=== PATIENT | female | born 1965 | race Caucasian/White ===

== ENCOUNTER 2017-06-25 16:16 | Emergency (ER) | payer OTHER ==
[~2017-06-25] VITALS: Ht 167.6 cm; Wt 79.4 kg
[2017-06-25] MEDS ORDERED: SILDENAFIL20 MG PO (16:38)
[2017-06-25] MEDS ORDERED: FUROSEMIDE40 MG PO (16:40)
[2017-06-25] MEDS ORDERED: GUAIFEN-CODEINE10 ML PO (19:07)
--- NOTE | 2017-06-26 15:08 | EKG ---
[facility] [address] [place], [place] [address] Signed Normal sinus rhythm with sinus arrhythmia Rightward axis ST \T\ T wave abnormality, consider anterolateral ischemia Prolonged QT Abnormal ECG No previous ECGs available Confirmed by BIJU FERRER MD ([id number]) on 06/26/2017 3:08:39 PM Electronically Signed By: BIJU FERRER MD 06/26/17 1508 PATIENT NAME: LUCILA POLLACKRA Electrocardiogram DATE OF : 63 PHYSICIAN: BIJU FERRER MD REPORT #: [id number] REPORT IS CONFIDENTIAL AND NOT TO BE RELEASED WITHOUT AUTHORIZATION
== END 2017-06-25 19:25 | disposition home or self-care (01) ==
LOC: ED 16:16
DX: R06.00 Dyspnea, unspecified (principal); E87.6 Hypokalemia; I27.20 Pulmonary hypertension, unspecified; M81.0 Age-related osteoporosis without current pathological fracture; Z88.5 Allergy status to narcotic agent
CPT/HCPCS: 71046; 80053; 81001; 82803; 83880; 84484; 85025; 87088; 93005; 93010; 96374; 99284

== ENCOUNTER 2019-10-23 19:36 | Emergency (ER) | payer OTHER ==
[~2019-10-23] VITALS: Ht 167.6 cm; Wt 95.2 kg
--- OUTSIDE RECORDS SUMMARY | ~2019-10-23 | XMS | Encounter Summary ---
Demographics + + + | Address | [address] | | | [place] [address] | + + + | Home Phone | | + + + | Preferred Language | Unknown | + + + | Marital Status | Single | + + + | Hindu Affiliation | CHR | + + + | Race | White | + + + | Ethnic Group | Not or | + + + Author + + + | Author | [facility] | + + + | Organization | [facility] | + + + | Address | Unknown | + + + | Phone | Unavailable | + + + Support + + +---------+ + | Name | Relationship | Address | Phone | + + +---------+ + | Bobbi Oconnell | ECON | Unknown | | + + +---------+ + | Alyssa Hernandez | ECON | Unknown | | + + +---------+ + Care Team Providers + +------+ + | Care Railroad Operator Name | Role | Phone | + +------+ + | Eve Daugherty MD | PCP | | + +------+ + Encounter Details +--------+ + + + + | Date | Type | Department | Care Team | Description | +--------+ + + + + | 04/05/ | Emergency | [facility] Emergency | | | | 2017 | | Department [address] | | | | | [address] | | | | | | [facility] | | | | | | [place], [place] | | | | | | [address] | | | | | | [phone] | | | +--------+ + + + + Social History + +-------+ +--------+------+ | Tobacco Use | Types | Packs/Day | Years | Date | | | | | Used | | + +-------+ +--------+------+ | Never Assessed | | | | | + +-------+ +--------+------+ + + + | Sex Assigned at | Date Recorded | | | | + + + | Not on file | | + + + documented as of this encounter Functional Status + + + + | Functional Status | Response | Date of Assessment | + + + + | Because of a physical, mental, or emotional | No | 03/17/2017 | | condition, do you have serious difficulty | | | | doing errands alone such as visiting the | | | | doctor? | | | + + + + + + + + | Cognitive Status | Response | Date of Assessment | + + + + | Because of a physical, mental, or emotional | No | 03/17/2017 | | condition, do you have serious difficulty | | | | concentrating, remembering, or making | | | | decisions? (5 years old or older) | | | + + + + documented as of this encounter Medications at Time of Discharge + + + +---------+ + + | Medication | Sig | Dispensed | Refills | Start | End Date | | | | | | Date | | + + + +---------+ + + | albuterol 90 | Inhale 2 puffs by | | 0 | | | | mcg/actuation | mouth every four | | | | | | inhalation HFA | hours as needed | | | | | | aerosol inhaler | (dyspnea). | | | | | + + + +---------+ + + | | Take 10 mL by mouth | 118 mL | 0 | // | | | dextromethorphan-gua | every four hours as | | | 18 | | | iFENesin 10-100 mg/5 | needed (cough 2nd | | | | | | mL oral | line). Indications: | | | | | | syrupIndications: | Cough | | | | | | cough | | | | | | + + + +---------+ + + | fluticasone 50 | Instill 2 sprays | 16 g | 0 | 03/27/19 | | | mcg/actuation nasal | into each nostril | | | 18 | | | spray,suspensionIndi | two times daily. | | | | | | cations: sinusitis | Indications: | | | | | | | sinusitis | | | | | + + + +---------+ + + documented as of this encounter Miscellaneous Notes Comm [place] - Gauri Mg - 04/05/2017 7:12 PM PSTPaged ailyn Shaffer, for Dr Rosa. [address] Olivia with dr Rosa, 52YOM, recent admission to [facility]tn, rt heart f ailiure, presented todat with chest pain, described as ache, ekg shows no acute process, tri p 0.04, repeat 0.05, ddimer normal 0.42, peripheral edema has resolved, chest wall tendern ess, has been off and on x 3 days, consult only, no transfer. documented in this encounter Plan of Treatment Not on filedocumented as of this encounter Visit Diagnoses Not on filedocumented in this encounter"
--- OUTSIDE RECORDS SUMMARY | ~2019-10-23 | XMS | Encounter Summary ---
Demographics + + + | Address | [address] | | | [place] [address] | + + + | Home Phone | | + + + | Preferred Language | Unknown | + + + | Marital Status | Single | + + + | Baptist Affiliation | CHR | + + + | Race | White | + + + | Ethnic Group | Not or | + + + Author + + + | Author | [facility] | + + + | Organization | [facility] | + + + | Address [...] Team Providers + +------+ + | Care Disc Jockey Name | Role | Phone | + +------+ + | Bobbi Jenkins NP | PCP | | + +------+ + Encounter Details +--------+ + + + + | Date | Type | Department | Care Team | Description | +--------+ + + + + | 09/14/ | Telephone | Pulmonary & | Beth Keith, | | | 2020 | | Critical Care | [address] | | | | | Medicine at | [facility] | | | | | Physicians [place] | [place], [place] | | | | | [address] | [address] | | | | | [address] | [phone] | | | | | [address] | | | | | | [place], [place] | | | | | | [address] | | | | | | [phone] | | | +--------+ + + + + Social History + +-------+ +--------+------+ | Tobacco Use | Types | Packs/Day | Years | Date | | | | | Used | | + +-------+ +--------+------+ | Never Smoker | | | | | + +-------+ +--------+------+ + +---+---+---+ | Smokeless Tobacco: | | | | | Never Used | | | | + +---+---+---+ + + +---------+ + | Alcohol Use | Drinks/Week | oz/Week | Comments | + + +---------+ + | Yes | | | Once every 6 months | + + +---------+ + + + + | Sex Assigned at | Date Recorded | | | | + + + | Not on file | | + + + documented as of this encounter Functional Status + + + + | Functional Status | Response | Date of Assessment | + + + + | Because of a physical, mental, or emotional | No | 11/15/2018 | | condition, do you have serious difficulty | | | | doing errands alone such as visiting the | | | | doctor? | | | + + + + + + + + | Cognitive Status | Response | Date of Assessment | + + + + | Because of a physical, mental, or emotional | No | 11/15/2018 | | condition, do you have serious difficulty | | | | concentrating, remembering, or making | | | | decisions? (5 years old or older) | | | + + + + documented as of this encounter Miscellaneous Notes Telephone Encounter - Gianna Worthy MA - 09/15/2019 3:45 PM PDTFaxed Pre-op note from Dr. Keith, per her request. documented in this encounter Plan of Treatment Not on filedocumented as of this encounter Visit Diagnoses Not on filedocumented in this encounter"
--- OUTSIDE RECORDS SUMMARY | ~2019-10-23 | XMS | Encounter Summary ---
Demographics + + + | Address | [address] | | | [place] [address] | + + + | Home Phone | | + + + | Preferred Language | Unknown | + + + | Marital Status | Single | + + + | Amish Affiliation | CHR | + + + | Race | White | + + + | Ethnic Group | Not or | + + + Author + + + | Author | [facility] | + + + | Organization | [facility] | + + + | Address [...] Team Providers + +------+ + | Care Ms Sql Server Developer Name | Role | Phone | + +------+ + | Bobbi Jenkins NP | PCP | | + +------+ + Reason for Visit + +--------+ + | Reason | Onset | Comments | | | Date | | + +--------+ + | SOB - Shortness of | 06/19/ | | | breath | 2020 | | + +--------+ + Encounter Details +--------+ + + + + | Date | Type | Department | Care Team | Description | +--------+ + + + + | 06/19/ | Telephone | Pulmonary & | Beth Keith, | SOB - Shortness of | | 2019 | | Critical Care | [address] | breath | | | | Medicine at | [facility] | | | | | Physicians [place] | [place], [place] | | | | | [address] | [address] | | | | | [address] [facility] | [phone] | | | | | Donna, [address] [place] [address] | | | | | | [place], [place] | | | | | | [address] | | | | | | [phone] | | | +--------+ + + + [...] this encounter Miscellaneous Notes Telephone Encounter - Yareli Bonilla MA - 06/20/2019 3:54 PM PDTReceived the reports, th ey are now uploaded in [employer]. elephone Encounter - Yareli Bonilla MA - 06/20/2019 2:[address] to have them push images and fax reports. elephone Encounter - Holly Early - 06/20/2019 2:26 PM PDTInbound call from Gema Barron. Calling to follow up on Lulu's call-back from this morning. Gema wanted to reiterate that she was recommended to be on bed rest by her ED doctor canelo liu she follows up with Dr. Keith. The patient reports a maintained level of shortness of nolan th. elephone Encounter - Saniya Cam - 06/20/2019 8:12 AM PDTVerenice called and left a message yesterday afternoon t hat she had worsening SOB and wanted to get results of the echo done on 06/14/19. Upon contac ting her this morning found that he did go to ER. They gave her the echo results and sent h er home with strict bed rest. This office just contacted the echo lab at [facility] and a sked that they fax the results of Gema's echo. They were not sure why it had not been sen t. documented in this enc ounter Plan of Treatment Not on filedocumented as of this encounter Visit Diagnoses Not on filedocumented in this encounter"
--- OUTSIDE RECORDS SUMMARY | ~2019-10-23 | XMS | Encounter Summary ---
Demographics + + + | Address | [address] | | | [place] [address] | + + + | Home Phone | | + + + | Preferred Language | Unknown | + + + | Marital Status | Single | + + + | Cheondoism Affiliation | CHR | + + + | Race | White | + + + | Ethnic Group | Not or | + + + Author + + + | Author | [facility] | + + + | Organization | [facility] | + + + | Address | [...] Team Providers + +------+ + | Care Equipment Operator/Laborer Name | Role | Phone | + +------+ + | Eve Daugherty MD | PCP | | + +------+ + Reason for Visit + + + | Reason | Comments | + + + | Refill Request | | + + + Encounter Details +--------+--------+ + + + | Date | Type | Department | Care Team | Description | +--------+--------+ + + + | 10/18/ | Refill | Pulmonary & | Mya Hall MD | Refill Request | | 2019 | | Critical Care | [address] | | | | | Medicine at | [facility], | | | | | [address] | [place] [address] | | | | | [address] | [phone] | | | | | Loop [facility] | | | | | | Donna, [facility] Floor | | | | | | [place], [place] | | | | | | [address] | | | | | | [phone] | | | +--------+--------+ + + + Social History + +-------+ [...] this encounter Miscellaneous Notes Telephone Encounter - Sydni Saldana MA - 10/18/2018 8:17 AM PDTFormatting of this note horacio ht be different from the original. REFILL REQUEST DATE: October 18, 2018 PATIENT: Gema Barron [id number] MESSAGE: On current med list Requested Prescriptions Pending Prescriptions Disp Refills KLOR-CON M20 20 mEq oral tablet,ER particles/crystals [Pharmacy Med Name: KLOR-CON M20 TABLET] 120 tablet 0 Sig: take 2 tablets by mouth twice a day with TORSEMIDE LAST APPOINTMENT: 10/12/17 at 3:37 pm NEXT APPOINTMENT: 11/17/18 at 2:15 pm Patient's pharmacy has been verified: Yes [id number] [place] [id number] documented in this encou nter Plan of Treatment Not on filedocumented as of this encounter Visit Diagnoses Not on filedocumented in this encounter"
--- OUTSIDE RECORDS SUMMARY | ~2019-10-23 | XMS | Encounter Summary ---
Demographics + + + | Address | [address] | | | [place] [address] | + + + | Home Phone | | + + + | Preferred Language | Unknown | + + + | Marital Status | Single | + + + | Druze Affiliation | CHR | + + + | Race | White | + + + | Ethnic Group | Not or | + + + Author + + + | Author | [facility] | + + + | Organization | [facility] | + + + | [...] Team Providers + +------+ + | Care All Terrain Vehicle Racer Name | Role | Phone | + +------+ + | Bobbi Jenkins NP | PCP | | + +------+ + Encounter Details +--------+ + + + + | Date | Type | Department | Care Team | Description | +--------+ + + + + | 09/21/ | MyChart | Pulmonary & | Beth Keith, | RE: Test results | | 2020 | Encounter | Critical Care | [address] | | | | | Medicine at | [facility] [address] | | | | | Phys[facility] | [place], [place] | | | | | [address] | [address] | | | | | Loop [facility] | [phone] | | | | | Donna, [address] [place] [address] | | | | | | [place], [place] | | | | | | [address] | | | | | | [phone] | | | +--------+ + + + [...] Telephone Encounter - Gianna Worthy MA - 09/22/2019 4:07 PM PDTPlease see patient requ est. documented in thi s encounter Plan of Treatment Not on filedocumented as of this encounter Visit Diagnoses Not on filedocumented in this encounter"
--- OUTSIDE RECORDS SUMMARY | ~2019-10-23 | XMS | Encounter Summary ---
Demographics + + + | Address | [address] | | | [place] [address] | + + + | Home Phone | | + + + | Preferred Language | Unknown | + + + | Marital Status | Single | + + + | Voodoo Affiliation | CHR | + + + | Race | White | + + + | Ethnic Group | Not or | + + + Author + + + | Author | [facility] | + + + | Organization | [facility] | + + + | [...] Team Providers + +------+ + | Care Junior Php Developer Name | Role | Phone | + +------+ + | Eve Daugherty MD | PCP | | + +------+ + Reason for Visit + +--------+ + | Reason | Onset | Comments | | | Date | | + +--------+ + | Medication Refill | 05/09/ | | | | 2019 | | + +--------+ + Encounter Details +--------+ + + + + | Date | Type | Department | Care Team | Description | +--------+ + + + + | 05/09/ | Telephone | Pulmonary & | Mya Hall MD | Medication Refill | | 2019 | | Critical Care | [address] | | | | | Medicine at | [facility], | | | | | Physicians [place] | [place] [address] | | | | | [address] | [phone] | | | | | Loop [facility] | | | | | | Donna, [address] [place] [address] | | | | | | [place], [place] | | | | | | [address] | | | | | | [phone] | | | +--------+ + + + [...] Telephone Encounter - Sydni Saldana MA - 05/13/2018 9:20 AM PDTSildenafil PA approval scan liz to the media section of chart by [facility]. I called and left a msg with the pharmacy letting them know that PA was approved and to rerun the Rx as pt needs refill. I asked that the pharmacy call us back if they have any issues running the Rx. I called the pt without s uccess. I received automated msg and not able to leave msg. elephone Encounter - Mindi Irwin MA - 05/12/2018 12:59 PM PDTAttempted to call the patient back to give her an update on PA request for janna araceliraymond. Received a automated message that stated "the number I was trying to call had calling restrictions that prevented the completion of the call." I called and spoke with patient's insurance and they said that the request for PA is still pending approval. I requested that they send a message through to request that the process the PA urgently as patient is now ou t of medication. A message with this request was sent to their processing department. If tabatha barrosdaniela calls back please let her know that CLAIR tried calling to provide her with this informati on but received the above message and was unable to get through. We will update her once we receive an approval. Telephone Encounter - Alma Delia Mann - 05/12/2018 12:09 PM PDTPatient called to follow-up on status of medication PA. Would also like a call from a medical scheduler. elephone Encounter - Mindi Irwin MA - 05/10/2018 10:10 AM PDTRequest sent to [facility] requesting urgent PA be submitted for aleksandra ent's sildenafil. el ephone Encounter - Alma Delia Mann - 05/09/2018 4:25 PM PDTPatient called needing a refil l on her sildenofil. She has 1 day left of meds until she runs out. [facility] pharmacy faxed o ivelisse a prior auth request on 05/07/18 and need this completed before they can fill rx. Routing to CLAIR clark for assistance. documented in this encounter Plan of Treatment Not on filedocumented as of this encounter Visit Diagnoses Not on filedocumented in this encounter
--- OUTSIDE RECORDS SUMMARY | ~2019-10-23 | XMS | Encounter Summary ---
Demographics + + + | Address | [address] | | | [place] [address] | + + + | Home Phone | | + + + | Preferred Language | Unknown | + + + | Marital Status | Single | + + + | Tenriism Affiliation | CHR | + + + | Race | White | + + + | Ethnic Group | Not or | + + + Author + + + | Author | [facility] | + + + | Organization | [facility] | + + + | Address [...] Team Providers + +------+ + | Care Fundraising Coordinator Name | Role | Phone | + +------+ + | Bobbi Jenkins NP | PCP | | + +------+ + Reason for Visit Office Visit - E/M Services (Routine) + +--------+ + + + + | Status | Reason | Specialty | Diagnoses / | Referred By | Referred To | | | | | Procedures | Contact | Contact | + +--------+ + + + + | Authorized | | Pulmonary | Diagnoses | Pul | Pul | | | | Disease | Pulmonary | [facility] 3rd | [facility] | | | | | hypertension | [facility] [address] | | | | | , | Pav[address] | Pav[address] | | | | | unspecified | Loop | Loop | | | | | Other | Physician's | Physician's | | | | | secondary | Pavilion, | Pavilion, 3rd | | | | | pulmonary | 3rd Floor | Floor | | | | | hypertension | [place], [place] | [place] | | | | | Personal | [address] | [phone] | | | | | history of | Phone: | Phone: | | | | | other | [phone] | [phone] | | | | | specified | Fax: | Fax: | | | | | conditions | [phone] | [phone] | | | | | Other | | | | | | | specified | | | | | | | abnormal | | | | | | | findings of | | | | | | | blood | | | | | | | chemistry | | | | | | | Other chest | | | | | | | pain | | | | | | | Procedures | | | | | | | LA NONINVASV | | | | | | | OXYGEN | | | | | | | SATUR,MULTIP | | | | | | | LE | | | + +--------+ + + + + Encounter Details +--------+ + + + + | Date | Type | Department | Care Team | Description | +--------+ + + + + | 10/11/ | Hospital | Medicine | Tech, P[facility] Adult | | | 2020 | Encounter | Specialties at [facility] | Clinic [address] | | | | | [address] | [facility] | | | | | Loop Physician's | [place] [address] | | | | | Pavilion, [facility] floor | | | | | | [place], [place] | | | | | | [address] | | | | | | [phone] | | | +--------+ + + + [...] on file | | + + + + + + + | COVID-19 Exposure | Response | Date Recorded | + + + + | In the last month, have you been in contact | No / Unsure | 10/12/2019 2:01 PM | | with someone who was confirmed or | | PDT | | suspected to have Coronavirus / COVID-19? | | | + + + + [...] + + + +---------+ + + | Ambrisentan | Take 1 tablet by | 30 | 11 | 06/22/19 | | | (LETAIRIS) 10 mg | mouth once daily. | tablet | | 20 | | | oral | Indications: | | | | | | tabletIndications: | pulmonary arterial | | | | | | pulmonary arterial | hypertension | | | | | | hypertension | | | | | | + + + +---------+ + + | | Take 10 mL by mouth | 118 mL | 0 | 03/27/19 | | | dextromethorphan-gua | every four [...] + +---------+ + + | | Take by mouth. A few | | 0 | | | | DM/p-ephed/acetamino | times per month | | | | | | ph/doxylam (NYQUIL | | | | | | | ORAL) | | | | | | + + + +---------+ + + | esomeprazole 20 mg | Take 1 capsule by | 30 | 6 | 06/29/19 | | | oral | mouth once daily. | capsule | | 20 | | | capsule,delayed | Indications: | | | | | | release(DR/EC)Indica | gastroesophageal | | | | | | tions: | reflux disease | | | | | | gastroesophageal | | | | | | | reflux disease | | | | | | + [...] + +---------+ + + | | Take 1 tablet by | | 0 | | | | HYDROcodone-acetamin | mouth once daily. | | | | | | ophen 10-325 mg oral | | | | | | | tablet | | | | | | + + + +---------+ + + | medical supply, | Per RT | 1 each | 11 | 11/18/19 | | | miscellaneous (RX | | | | 19 | 4 | | HOME OXYGEN) | | | | | | + + + +---------+ + + | potassium chloride | Take 2 tablets by | 60 | 11 | 12/02/19 | | | SR (MAXIMOOR-CON M20) | mouth once daily. | tablet | | 19 | | | 20 mEq oral | | | | | | | tablet,ER | | | | | | | particles/crystals | | | | | | + + + +---------+ + + | sildenafil 20 mg | Take 2 tablets by | 180 | 11 | 03/23/19 | | | oral | mouth three times | tablet | | 20 | | | tabletIndications: | daily. Administer at | | | | | | pulmonary arterial | least 4-6 hours | | | | | | hypertension | apart. Indications: | | | | | | | pulmonary arterial | | | | | | | hypertension | | | | | + + + +---------+ + + | torsemide 20 mg | Take 3 tablets by | 270 | 2 | 07/04/19 | | | oral | mouth three times | tablet | | 20 | | | tabletIndications: | daily. Indications: | | | | | | pulmonary edema due | fluid in the lungs | | | | | | to chronic heart | due to chronic heart | | | | | | failure | failure | | | | | + + + +---------+ + + documented as of this encounter Plan of Treatment + + +--------+ + + | Name | Type | Priori | Associated Diagnoses | Order Schedule | | | | ty | | | + + +--------+ + + | 6 MINUTE WALK, PULM | Pulmonary | Routin | Pulmonary | 1 Occurrences | | FUNCTION LAB | Function | e | hypertension (HCC) | starting 10/12/2019 | | | | | | until 10/12/2019 | + + +--------+ + + documented as of this encounter Visit Diagnoses + + | Diagnosis | + + | Pulmonary hypertension (HCC) Other chronic pulmonary heart diseases | + + documented in this encounter"
--- OUTSIDE RECORDS SUMMARY | ~2019-10-23 | XMS | Encounter Summary ---
Demographics + + + | Address | [address] | | | [place] [address] | + + + | Home Phone | | + + + | Preferred Language | Unknown | + + + | Marital Status | Single | + + + | Temple Affiliation | CHR | + + + | Race | White | + + + | Ethnic Group | Not or | + + + Author + + + | Author | [facility] | + + + | Organization | [facility] | + + + | [...] Team Providers + +------+ + | Care Gas Brazer Name | Role | Phone | + +------+ + | Eve Daugherty MD | PCP | | + +------+ + Encounter Details +--------+ + + + + | Date | Type | Department | Care Team | Description | +--------+ + + + + | 10/12/ | Hospital | Diagnostic | Mya Hall MD | | | 2018 | Encounter | [facility] at [facility] | [address] | | | | | [address] | [place], | | | | | [address] | [place] [address] | | | | | Donna, [facility] Floor | [phone] | | | | | [place], [place] | | | | | | [address] | | | | | | [phone] | | | +--------+ + + + [...] as of this encounter Plan of Treatment Not on filedocumented as of this encounter Procedures + +--------+ + + + | Procedure Name | Priori | Date/Time | Associated Diagnosis | Comments | | | ty | | | | + +--------+ + + + | X-RAY CLAVICLE LEFT | Routin | 10/12/2017 | Pulmonary | Results for this | | 2 VIEWS | e | 11:11 AM | hypertension (HCC) | procedure are in the | | | | PDT | | results section. | + +--------+ + + + documented in this encounter Results X-RAY CLAVICLE LEFT 2 VIEWS (10/12/2017 11:11 AM PDT) + + | Specimen | + + | | + + + + + | Narrative | Performed At | + + + | EXAM: CLAVICLE LEFT 2 VIEWS HISTORY: Left Clavicle swelling and | [facility] | | tenderness COMPARISON: None. FINDINGS: There is no acute | RADIOLOGY VOICE | | fracture or malalignment. The acromioclavicular and glenohumeral | RECOGNITION 2 | | joints are intact. The soft tissues are unremarkable. IMPRESSION: | | | Unremarkable left clavicle radiograph. I have personally | | | reviewed the images and, if necessary, edited the report. I agree with | | | the report as now presented. Final signature: Chuck Garcia MD | | | 10/12/2017 11:42 AM Preliminary: Nataly Soto MD Dictation | | | initiated: Nataly Soto MD 10/12/2017 11:18 AM | | + + + + + | Procedure Note | + + | Service Account, Radiant Res In Interface - 10/12/2017 11:43 AM PDT EXAM: CLAVICLE | | LEFT 2 VIEWS HISTORY: Left Clavicle swelling and tenderness COMPARISON: None. FINDINGS: | | There is no acute fracture or malalignment. The acromioclavicular and glenohumeral | | joints are intact. The soft tissues are unremarkable. IMPRESSION: Unremarkable left | | clavicle radiograph. I have personally reviewed the images and, if necessary, edited the | | report. I agree with the report as now presented. Final signature: Chuck Garcia MD | | 10/12/2017 11:42 AM Preliminary: Nataly Soto MD Dictation initiated: Nataly Soto MD | | 10/12/2017 11:18 AM | |There is no acute fracture or malalignment. The acromioclavicular and glenohumeral joints a re intact. The soft tissues are unremarkable. | | | |IMPRESSION: | | | |Unremarkable left clavicle radiograph. | | | |I have personally reviewed the images and, if necessary, edited the report. I agree with th e report as now presented. | | | |Final signature: Chuck Garcia MD 10/12/2017 11:42 AM | |Preliminary: Nataly Soto MD | |Dictation initiated: Nataly Soto MD 10/12/2017 11:18 AM | + + + +---------+ + + | Performing | Address | City/State/Zipcode | Phone Number | | Organization | | | | + +---------+ + + | [facility] | | | | | VOICE RECOGNITION 2 | | | | + +---------+ + + documented in this encounter Visit Diagnoses + + | Diagnosis | + + | Pulmonary hypertension (HCC) Other chronic pulmonary heart diseases | + + documented in this encounter"
--- OUTSIDE RECORDS SUMMARY | ~2019-10-23 | XMS | Encounter Summary ---
Demographics + + + | Address | [address] | | | [place] [address] | + + + | Home Phone | | + + + | Preferred Language | Unknown | + + + | Marital Status | Single | + + + | Islam Affiliation | CHR | + + + | Race | White | + + + | Ethnic Group | Not or | + + + Author + + + | Author | [facility] | + + + | Organization | [facility] | + + + | Address [...] Team Providers + +------+ + | Care Strategic Sourcing Specialist Name | Role | Phone | + +------+ + | Eve Daugherty MD | PCP | | + +------+ + Encounter Details +--------+ + + + + | Date | Type | Department | Care Team | Description | +--------+ + + + + | 10/12/ | Hospital | Medicine | Tech, P[facility] Adult | | | 2018 | Encounter | [facility] at [facility] | Clinic [address] | | | | | [address] | [facility] | | | | | [address] | [place] [address] | | | | | [address], [address] floor | | | | | | [place], [place] | | | | | | [address] | | | | | | [phone] | | | +--------+ + + + [...] | + +--------+ + + + | 6 MINUTE WALK, PULM | Routin | 10/12/2017 | Pulmonary | Results for this | | FUNCTION LAB | e | 9:23 AM | hypertension (HCC) | procedure are in the | | | | PDT | | results section. | + +--------+ + + + documented in this encounter Results 6 MINUTE WALK, PULM FUNCTION LAB (10/12/2017 9:23 AM PDT) + + + + + + | Component | Value | Ref Range | Performed | Pathologist | | | | | At | Signature | + + + + + + | PULMONARY | Site: [facility], [facility] and | | [facility] | | | INTERPRETAT | [facility] | | SPECIAL | | | ION | [facility] | | DIAGNOSTICS | | | | [address],[place], [place], | | - | | | | [address]QR: [id number] | | PULMONARY | | | | Name: GEMA POLLACK | | FUNCTION | | | | SVisit Date: 10/12/2017 | | | | | | Second ID: | | | | | | [id number]: | | | | | | Marvin Shay: 52 | | | | | | : 1965 Sex: | | | | | | Female Race: | | | | | | CaucasianHeight: 164.50 | | | | | | Cms Weight: 81.10 | | | | | | Kgs BSA: | | | | | | 1.88Diagnosis: | | | | | | I27.20Dyspnea: Walking | | | | | | less than 100 yards | | | | | | Cough: Non-Productive | | | | | | Wheeze: No WheezeTbco | | | | | | Prod: Never SmokedPost | | | | | | Test Comments: Patient | | | | | | height and weight | | | | | | reviewed. Good patient | | | | | | effort &cooperation. | | | | | | 6- Minute Walk Test | | | | | | Baseline data: | | | | | | Heart rate: 96 | | | | | | Sp02: 97 Dyspnea | | | | | | (Lynette scale): 1Fatigue | | | | | | (Lynette scale): 3 Post | | | | | | test data: Heart | | | | | | rate: 110 Sp02: 93 | | | | | | Dyspnea (Lynette | | | | | | scale):2Fatigue (Lynette | | | | | | scale): 3 1 minute post | | | | | | test: Heart rate:89 | | | | | | HHR1(Posttest heart rate | | | | | | - 1 minuteposttest | | | | | | heart rate): 21 Distance | | | | | | walked: 840_ Feet | | | | | | Minutes walked: 6 | | | | | | min: | | | | | | | | | | | | Testperformed on: Room | | | | | | Air | | | | | | | | | | | | | | | | | | Pre-Bronch | | | | | | Post-Bronch | | | | | | | | | | | | Pred | | | | | | Actual %Pred Actual | | | | | | %ChngBLOOD GASES | | | | | | Interpretation: | | | | | | INTERPRETATION:SIX | | | | | | MINUTE WALK:The distance | | | | | | walked is severely | | | | | | reduced (<900 feet). The | | | | | | oxygen saturation atthe | | | | | | end of the walk | | | | | | remained in the normal | | | | | | range and did not fall | | | | | | significantly (5%).The | | | | | | Heart Rate Recovery ( | | | | | | Heart rate immediately | | | | | | post 6MW minus heart | | | | | | rate at 1minute post- | | | | | | 6MW) is normal (Normal | | | | | | >12 beats/minute). TM | | | | | | This interpretation has | | | | | | been electronically | | | | | | signed: Petar Brown | | | | | | 10/19/201701:54:38 PM | | | | + + + + + + | DISTANCE | [address] | | [facility] | | | W[facility] | | | SPECIAL | | | RS | | | DIAGNOSTICS | | | | | | - | | | | | | PULMONARY | | | | | | FUNCTION | | + + + + + + + + | Specimen | + + | | + + + + + | Narrative | Performed At | + + + | | | + + + + + + + + | Performing | Address | City/State/Zipcode | Phone Number | | Organization | | | | + + + + + | [facility] | [address] | [place], [place] | | | DIAGNOSTICS - | [place] | [address] | | | PULMONARY FUNCTION | | | | + + + + + documented in this encounter Visit Diagnoses + + | Diagnosis | + + | Pulmonary hypertension (HCC) Other chronic pulmonary heart diseases | + + documented in this encounter"
--- OUTSIDE RECORDS SUMMARY | ~2019-10-23 | XMS | Encounter Summary ---
Demographics + + + | Address | [address] | | | [place] [address] | + + + | Home Phone | | + + + | Preferred Language | Unknown | + + + | Marital Status | Single | + + + | Spiritism Affiliation | CHR | + + + | Race | White | + + + | Ethnic Group | Not or | + + + Author + + + | Author | [facility] | + + + | Organization | [facility] | + + + | [...] Team Providers + +------+ + | Care Rotary Cutter Feeder Name | Role | Phone | + +------+ + | Bobbi Jenkins NP | PCP | | + +------+ + Reason for Visit + +--------+ + | Reason | Onset | Comments | | | Date | | + +--------+ + | Appointment Question | 03/29/ | | | | 2020 | | + +--------+ + Encounter Details +--------+ + + + + | Date | Type | Department | Care Team | Description | +--------+ + + + + | 03/29/ | Telephone | Pulmonary & | Kate Benjamin, | Appointment Question | | 2019 | | Critical Care | [address] | | | | | Medicine at | [facility] | | | | | [address] | [place], [place] | | | | | [address] | [address] | | | | | [address] | [phone] | | | | | Donna, [address] [place] [address] | | | | | | [place], [place] | | | | | | [address] | | | | | | [phone] | | | +--------+ + + + [...] this encounter Miscellaneous Notes Telephone Encounter - Raghavendra Rodriguez MA - 03/30/2019 3:45 PM PSTCalled and provide the information below to patient: elephone Encounter - Yovanny Bill - 03/29/2019 1:51 PM PSTPatient called our clinic inquiring to ask Yesika Benjamin's Research Venetian Blind Maker if or when she would like the patient to be seen for he r trial group. If an appointment is to ever be made the patient does request a 24 hr notice prior. Please contact the patient at the telephone number listed below. Patient (ok to leave conf vm per patient) documented in this encounter Plan of Treatment Not on filedocumented as of this encounter Visit Diagnoses Not on filedocumented in this encounter"
--- OUTSIDE RECORDS SUMMARY | ~2019-10-23 | XMS | Encounter Summary ---
Demographics + + + | Address | [address] | | | [place] [address] | + + + | Home Phone | | + + + | Preferred Language | Unknown | + + + | Marital Status | Single | + + + | Yazdanism Affiliation | CHR | + + + [...] Team Providers + +------+ + | Care Mainspring Winder Name | Role | Phone | + +------+ + | Eve Daugherty MD | PCP | | + +------+ + Reason for Visit + +--------+ + | Reason | Onset | Comments | | | Date | | + +--------+ + | Weight gain | 05/21/ | | | | 2017 | | + +--------+ + Encounter Details +--------+ + + + + | Date | Type | Department | Care Team | Description | +--------+ + + + + | 05/21/ | Telephone | Pulmonary & | Mya Hall MD | Weight gain | | 2018 | | Critical Care | [address] | | | | | Medicine at | [address] [place], | | | | | [address] | [place] [address] | | | | | [address] | [phone] | | | | | [address] | | | | | | Donna, [address] [place] [address] | | | | | | [place], [place] | | | | | | [address] | | | | | | [phone] | | | +--------+ + + + [...] this encounter Miscellaneous Notes Telephone Encounter - Mya Hall MD - 06/06/2017 12:00 PM PDTElectrolytes were reviewed f 05-27-2017 and were stable. elephone Encounter - Mya Hall MD - 05/23/2017 1:50 PM PDTI spoke with Ms. Barron. We discussed that she has gained significant amount of weight on 20 mg of furosemide and 20 mEq potassium daily. She has been to the emergency room one time, they gave her IV diuretic s, she improved but has since gained weight again despite salt and fluid restriction. The pl an is for her to increase furosemide to 40 mg a day, increase potassium to 40 mEq per day, r epeat labs in one week. I have also asked her to follow-up with her primary care provider an clementina get evaluated. Prescriptions were transmitted electronically to her pharmacy.Electronicall y signed by Mya Hall MD at 05/23/2017 2:06 PM PDTTelephone Encounter - aSniya Mcmillan - 05/21/2017 2:52 PM PDTGema called to inform Dr. Hall that she has put on another 6 sharee nds since Wednesday and seeks advice. documented in this encounter Plan of Treatment Not on filedocumented as of this encounter Visit Diagnoses + + | Diagnosis | + + | Pulmonary hypertension (HCC) - Primary Other chronic pulmonary heart diseases | + + documented in this encounter"
--- OUTSIDE RECORDS SUMMARY | ~2019-10-23 | XMS | Encounter Summary ---
Demographics + + + | Address | [address] | | | [place] [address] | + + + | Home Phone [...] Author + + + | Author | [facility] | + + + | Organization | [facility] | + + + | Address | [...] Team Providers + +------+ + | Care Quarryman Name | Role | Phone | + +------+ + | Eve Daugherty MD | PCP | | + +------+ + Encounter Details +--------+ + + + + | Date | Type | Department | Care Team | Description | +--------+ + + + + | 10/22/ | Documentati | Pulmonary & | Mya Hall MD | | | 2018 | on | Critical Care | [address] | | | | | Medicine at [facility], | | | | | Phys[place] | [place] [address] | | | | | [address] | [phone] | | | | | [address] | | | | | | [address], [address] Floor | | | | | | [place], [place] | | | | | | [address] | | | | | | [phone] | | | +--------+ + + + [...]
--- OUTSIDE RECORDS SUMMARY | ~2019-10-23 | XMS | Encounter Summary ---
Demographics + + + | Address | [address] | | | [place] [address] | + + + | Home Phone | | + + + | Preferred Language | Unknown | + + + | Marital Status | Single | + + + | Mosque Affiliation | CHR | + + + [...] Team Providers + +------+ + | Care Employment Specialist/Program Manager Name | Role | Phone | + +------+ + | Eve Daugherty MD | PCP | | + +------+ + Encounter Details +--------+ + + + + | Date | Type | Department | Care Team | Description | +--------+ + + + + | 11/14/ | Telephone | Pulmonary & | Kate Benjamin, | | | 2019 | | Critical Care | [address] [facility] | | | | | Medicine at | [facility] | | | | | [address] | [place], [place] | | | | | [address] | [address] | | | | | [address] | [phone] | | | | | Donna, [facility] Floor | | | | | | [place], [place] | | | | | | [address] | | | | | | [phone] | | | +--------+ + + + [...] this encounter Miscellaneous Notes Telephone Encounter - Kate Benjamin MD - 11/14/2018 12:29 PM PDTWas contacted by the [facility] in [place], [place] Ms. Barron is currently admitted there for diuresis, I talked to the hospitalist about a p ana for her last week. Today, Dr. Barbosa, who is the currently hospitalist there, called me. Unfortunately, despite diuresis, she continues to have SOB, chest pain, with occasional hypotension. She has had s everal EKGs that have all been negative, negative troponins, negative d-dimer. He did not ge t a PE CT given her elevated Cr. I am concerned that Ms. Barron is having worsening pulmonary hypertension with possible ri ght heart failure. I think that she may need a third agent, which cannot be initiated at [facility]. Also, because of her hypotension, Cr elevation, and not being responsive to diure sis, I am concerned that she is having signs of R heart failure. I recommended we transfer her to [facility] to the MICU for further care, which Dr. Barbosa agreed with. I have spoken to the MICU attending as well. When Ms. Barron arrives, I would recommend - stat TTE - checking an NT-proBNP - placement of a PAC and initiation of inhaled iloprost after PAC placement. - Of note, if she is unstable or appears to be in cardiogenic shock, I would recommend an i notrope like dobutamine, with pressors as needed (NE, vasopressin, or epi ok, would avoid ph enylephrine if possible). I am concerned that she may need IV Flolan but would like to get a sense of her R sided num bers and also have a chance to talk to her about initiation since it is a exterminator helper commitme nt and there are risks and benefits (could also consider an oral agent although it can be di fficult to get insurance to approve these). Please let me know when she arrives and I will come by to see her. documented in this e ncounter Plan of Treatment Not on filedocumented as of this encounter Visit Diagnoses Not on filedocumented in this encounter"
--- OUTSIDE RECORDS SUMMARY | ~2019-10-23 | XMS | Encounter Summary ---
Demographics + + + | Address | [address] | | | [place] [address] | + + + | Home Phone | | + + + | Preferred Language | Unknown | + + + | Marital Status | Single | + + + | Congregation Affiliation | CHR | + + + | Race | White | + + + | Ethnic Group | Not or | + + + Author + + + | Organization | Unknown | + + + | Address | [...] Team Providers + +------+ + | Care Scaler Packer Name | Role | Phone | + +------+ + | Bobbi Jenkins SPIRAL TUBE WINDER HELPER | PCP | | + +------+ + Encounter Details +--------+--------+ + + + | Date | Type | Department | Care Team | Description | +--------+--------+ + + + | 10/11/ | Travel | | | | | 2020 | | | | | +--------+--------+ + + + [...]
--- OUTSIDE RECORDS SUMMARY | ~2019-10-23 | XMS | Encounter Summary ---
Demographics + + + | Address | [address] | | | [place] [address] | + + + | Home Phone | | + + + | Preferred Language | Unknown | + + + | Marital Status | Single | + + + | Methodist Affiliation | CHR | + + + [...] Team Providers + +------+ + | Care Tree Fruit And Nut Farming Supervisor Name | Role | Phone | + +------+ + | Bobbi Jenkins NP | PCP | | + +------+ + Encounter Details +--------+ + + + + | Date | Type | Department | Care Team | Description | +--------+ + + + + | 08/23/ | Documentati | Pulmonary & | Beth Keith, | | | 2020 | on | Critical Care | [address] | | | | | Medicine at | [facility] | | | | | Physicians [address] | [place], [place] | | | | | [address] | [address] | | | | | [address] | [phone] | | | | | Donna, [address] [place] [address] | | | | | | [place], [place] | | | | | | [address] | | | | | | [phone] | | | +--------+ + + + [...]
--- OUTSIDE RECORDS SUMMARY | ~2019-10-23 | XMS | Encounter Summary ---
Demographics + + + | Address | [address] | | | [place] [address] | + + + | Home Phone | | + + + | Preferred Language | Unknown | + + + | Marital Status | Single | + + + | Mandaen Affiliation | CHR | + + + | Race | White | + + + | Ethnic Group | Not or | + + + Author + + + | Author | [facility] | + + + | Organization | [facility] | + + + | Address [...] Team Providers + +------+ + | Care Oven Attendant Name | Role | Phone | + +------+ + | Bobbi Jenkins NP | PCP | | + +------+ + Encounter Details +--------+------+ + + + | Date | Type | Department | Care Team | Description | +--------+------+ + + + | 11/25/ | Lab | Laboratory at [facility] | | Pulmonary | | 2019 | | [address] | | hypertension (HCC) | | | | [facility] | | | | | | [place], [address] floor | | | | | | [place], [place] | | | | | | [address] | | | | | | [phone] | | | +--------+------+ + + + Social History + +-------+ [...] | + +--------+ + + + | NT-PRO BNP | Routin | 11/25/2018 | Pulmonary | Results for this | | | e | 1:12 PM | hypertension (HCC) | procedure are in the | | | | PDT | | results section. | + +--------+ + + + | TSH W/REFLEX TO FREE | Routin | 11/25/2018 | Pulmonary | Results for this | | T4(IF ABNORMAL) | e | 1:12 PM | hypertension (HCC) | procedure are in the | | | | PDT | | results section. | + +--------+ + + + | CBC AND AUTO DIFF | Routin | 11/25/2018 | Pulmonary | Results for this | | | e | 1:12 PM | hypertension (HCC) | procedure are in the | | | | PDT | | results section. | + +--------+ + + + | OPIATE CONFIRM FOR | Routin | 11/25/2018 | Pulmonary | Results for this | | POC USE ONLY | e | 1:12 PM | hypertension (HCC) | procedure are in the | | | | PDT | | results section. | + +--------+ + + + | CBC, WITH | Routin | 11/25/2018 | Pulmonary | Results for this | | DIFFERENTIAL | e | 1:12 PM | hypertension (HCC) | procedure are in the | | | | PDT | | results section. | + +--------+ + + + | DRUG | Routin | 11/25/2018 | Pulmonary | Results for this | | SCREEN,URINE;W/CONFI | e | 1:12 PM | hypertension (HCC) | procedure are in the | | RM | | PDT | | results section. | + +--------+ + + + | LIVER SET | Routin | 11/25/2018 | Pulmonary | Results for this | | (AST,ALT,BILI | e | 1:12 PM | hypertension (HCC) | procedure are in the | | TOTAL,BILI | | PDT | | results section. | | DIRECT,ALK | | | | | | PHOS,ALB,PROT TOTAL) | | | | | + +--------+ + + + | BASIC METABOLIC SET | Routin | 11/25/2018 | Pulmonary | Results for this | | (NA, K, CL, TCO2, | e | 1:12 PM | hypertension (HCC) | procedure are in the | | BUN, CR, GLU, CA) | | PDT | | results section. | + +--------+ + + + | HCG QUAL, URINE | Routin | 11/25/2018 | Pulmonary | Results for this | | | e | 1:12 PM | hypertension (HCC) | procedure are in the | | | | PDT | | results section. | + +--------+ + + + documented in this encounter Results OPIATE CONFIRM FOR POC USE ONLY (11/25/2018 1:12 PM PDT) + + + + + + | Component | Value | Ref Range | Performed | Pathologist | | | | | At | Signature | + + + + + + | HYDROCODONE | <20 | ng/mL | [facility] | | | , URN, | | | REG UNIV | | | QUANT | | | PTH - INTFC | | + + + + + + | HYDROMORPHO | <20 | ng/mL | [facility] | | | NE, URN, | | | REG UNIV | | | QUANT | | | PTH - INTFC | | + + + + + + | CODEINE, | <20 | ng/mL | [facility] | | | URN, QUANT | | | REG UNIV | | | | | | PTH - INTFC | | + + + + + + | MORPHINE, | <20 | ng/mL | [facility] | | | URN, QUANT | | | REG UNIV | | | | | | PTH - INTFC | | + + + + + + | 6-ACETYLMOR | <10Comment: INTERPRETIVE | ng/mL | [facility] | | | PHINE, URN, | INFORMATION: Opiates, | | REG UNIV | | | QUANT | Urine, | | PTH - INTFC | | | | | | | | | | Quantitative | | | | | | Methodology: | | | | | | Quantitative Liquid | | | | | | Chromatography-Tandem | | | | | | Mass Spectrometry | | | | | | Positive cutoff: 20 | | | | | | ng/mL except as | | | | | | specified | | | | | | below6-acetylmorphine | | | | | | 10 ng/mL For | | | | | | medical purposes only; | | | | | | not valid for forensic | | | | | | use. Identification of | | | | | | specific drug(s) taken | | | | | | by specimen donor is | | | | | | problematic due to | | | | | | common metabolites, some | | | | | | of which are | | | | | | prescription drugs | | | | | | themselves. The absence | | | | | | of expected drug(s) | | | | | | and/or drug | | | | | | metabolite(s) may | | | | | | indicate non-compliance, | | | | | | inappropriate timing of | | | | | | specimen collection | | | | | | relative to drug | | | | | | administration, poor | | | | | | drug absorption, | | | | | | diluted/adulterated | | | | | | urine, or limitations of | | | | | | testing. All drug | | | | | | analytes covered are in | | | | | | the non-glucuronidated | | | | | | (free) forms. The | | | | | | concentration value must | | | | | | be greater than or | | | | | | equal to the cutoff to | | | | | | be reported as positive. | | | | | | A very small amount of | | | | | | an unexpected drug | | | | | | analyte in the presence | | | | | | of a large amount of an | | | | | | expected drug analyte | | | | | | may reflect | | | | | | pharmaceutical impurity. | | | | | | Interpretive questions | | | | | | should be directed to | | | | | | the laboratory. Test | | | | | | developed and | | | | | | characteristics | | | | | | determined by [facility] | | | | | | [facility]. See | | | | | | Compliance Statement B: | | | | | | [employer]/CS | | | | + + + + + + | NOROXYCODON | 29Comment: Noroxycodone | ng/mL | [facility] | | | E, URN, | is a metabolite of | | REG UNIV | | | QUANT | oxycodone; consistent | | PTH - INTFC | | | | with use of a drug | | | | | | containing oxycodone. | | | | + + + + + + | NOROXYMORPH | <20 | ng/mL | [facility] | | | ONE, URN, | | | REG UNIV | | | QUANT | | | PTH - INTFC | | + + + + + + | OXYCODONE, | <20 | ng/mL | [facility] | | | URN, QUANT | | | REG UNIV | | | | | | PTH - INTFC | | + + + + + + | OXYMORPHONE | <20 | ng/mL | [facility] | | | , URN, | | | REG UNIV | | | QUANT | | | PTH - INTFC | | + + + + + + | NORHYDROCOD | <20Comment: Performed by | ng/mL | [facility] | | | ONE, RANDI, | [facility],[address] | | REG UNIV | | | QUANT | [facility] | | PTH - INT[facility] | | | | [phone] | | | | | | [phone]. | | | | | | Moises gage MD, | | | | | | Lab. Director | | | | + + + + + + + + | Specimen | + + | Urine - Urine | | (substance) | + + + + + + + | Performing | Address | City/State/Zipcode | Phone Number | | Organization | | | | + + + + + | [facility] | [address] | [place], [place] | | | UNIV PTH - INTFC | | [phone] | | + + + + + CBC AND AUTO DIFF (11/25/2018 1:12 PM PDT) + + + + + + | Component | Value | Ref Range | Performed | Pathologist | | | | | At | Signature | + + + + + + | WHITE CELL | 7.47 | 3.50 - 10.80 | [facility] | | | COUNT | | K/cu mm | LABORATORY | | | | | | SERVICES, | | | | | | CORE | | + + + + + + | RED CELL | 3.98 (L) | 4.00 - 5.20 | [facility] | | | COUNT | | M/cu mm | LABORATORY | | | | | | SERVICES, | | | | | | CORE | | + + + + + + | HEMOGLOBIN | 12.8 | 12.0 - 16.0 | [facility] | | | | | g/dL | LABORATORY | | | | | | SERVICES, | | | | | | CORE | | + + + + + + | HEMATOCRIT | 37.9 | 36.0 - 46.0 % | [facility] | | | | | | LABORATORY | | | | | | SERVICES, | | | | | | CORE | | + + + + + + | MCV | 95.2 | 80.0 - 100.0 fL | [facility] | | | | | | LABORATORY | | | | | | SERVICES, | | | | | | CORE | | + + + + + + | MCHC | 33.8 | 32.0 - 36.0 | [facility] | | | | | g/dL | LABORATORY | | | | | | SERVICES, | | | | | | CORE | | + + + + + + | RDW SD | 44.0 | 35.1 - 46.3 fL | [facility] | | | | | | LABORATORY | | | | | | SERVICES, | | | | | | CORE | | + + + + + + | PLATELET | 199 | 150 - 400 K/cu | [facility] | | | COUNT | | mm | LABORATORY | | | | | | SERVICES, | | | | | | CORE | | + + + + + + | MPV | 11.8 | 9.7 - 12.3 fL | [facility] | | | | | | LABORATORY | | | | | | SERVICES, | | | | | | CORE | | + + + + + + | NRBC% | 0.0 | 0.0 - 0.3 % | [facility] | | | | | | LABORATORY | | | | | | SERVICES, | | | | | | CORE | | + + + + + + | NRBC# | 0.00 | 0.00 - 0.02 | [facility] | | | | | K/cu mm | LABORATORY | | | | | | SERVICES, | | | | | | CORE | | + + + + + + | NEUTROPHIL | 62.5 | 50.0 - 70.0 % | [facility] | | | % | | | LABORATORY | | | | | | SERVICES, | | | | | | CORE | | + + + + + + | LYMPHOCYTE | 24.0 | 18.0 - 42.0 % | [facility] | | | % | | | LABORATORY | | | | | | SERVICES, | | | | | | CORE | | + + + + + + | MONOCYTE % | 6.6 | 3.5 - 9.0 % | [facility] | | | | | | LABORATORY | | | | | | SERVICES, | | | | | | CORE | | + + + + + + | EOS % | 6.0 (H) | 1.0 - 3.0 % | [facility] | | | | | | LABORATORY | | | | | | SERVICES, | | | | | | CORE | | + + + + + + | BASO % | 0.5 | 0.0 - 2.0 % | [facility] | | | | | | LABORATORY | | | | | | SERVICES, | | | | | | CORE | | + + + + + + | IG% | 0.4 | 0.0 - 1.0 % | [facility] | | | | | | LABORATORY | | | | | | SERVICES, | | | | | | CORE | | + + + + + + | NEUTROPHIL | 4.67 | 1.80 - 7.70 | [facility] | | | # | | K/cu mm | LABORATORY | | | | | | SERVICES, | | | | | | CORE | | + + + + + + | LYMPHOCYTE | 1.79 | 1.00 - 4.80 | [facility] | | | # | | K/cu mm | LABORATORY | | | | | | SERVICES, | | | | | | CORE | | + + + + + + | MONOCYTE # | 0.49 | 0.10 - 0.90 | [facility] | | | | | K/cu mm | LABORATORY | | | | | | SERVICES, | | | | | | CORE | | + + + + + + | EOS # | 0.45 | 0.00 - 0.50 | [facility] | | | | | K/cu mm | LABORATORY | | | | | | SERVICES, | | | | | | CORE | | + + + + + + | BASO # | 0.04 | 0.00 - 0.10 | [facility] | | | | | K/cu mm | LABORATORY | | | | | | SERVICES, | | | | | | CORE | | + + + + + + | IG# | 0.03 | 0.00 - 0.10 | [facility] | | | | | K/cu mm | LABORATORY | | | | | | SERVICES, | | | | | | CORE | | + + + + + + + + | Specimen | + + | Blood - Blood | | (substance) | + + + + + | Narrative | Performed At | + + + | Increased immature granulocytes (IG) define a left shift. Immature | [facility] | | granulocytes (IG) are an automated count of metamyelocytes, myelocytes | LABORATORY | | and promyelocytes. Bands are not included in the IG count. Bands are | SERVICES, CORE | | included in the neutrophil count. | | + + + + + + + + | Performing | Address | City/State/Zipcode | Phone Number | | Organization | | | | + + + + + | [facility] | [address] | [place] [address] | | | SERVICES, CORE | [address] | | | + + + + + HCG QUAL, URINE (11/25/2018 1:12 PM PDT) + + + + + + | Component | Value | Ref Range | Performed | Pathologist | | | | | At | Signature | + + + + + + | HCG QUAL | NegativeComment: HCG= | mIU/mL | [facility] | | | URINE | <20mIU/mL. | | LABORATORY | | | | | | SERVICES, | | | | | | CORE | | + + + + + + + + | Specimen | + + | Urine - Urine | | (substance) | + + + + + + + | Performing | Address | City/State/Zipcode | Phone Number | | Organization | | | | + + + + + | [facility] | [address] | [place] [address] | | | SERVICES, CORE | [address] | | | + + + + + TSH W/REFLEX TO FREE T4(IF ABNORMAL) (11/25/2018 1:12 PM PDT) + +-------+ + + + | Component | Value | Ref Range | Performed | Pathologist | | | | | At | Signature | + +-------+ + + + | TSH | 2.17 | 0.50 - 5.07 | [facility] | | | | | mIU/L | LABORATORY | | | | | | SERVICES, | | | | | | CORE | | + +-------+ + + + + + | Specimen | + + | Blood - Blood | | (substance) | + + + + + | Narrative | Performed At | + + + | TSH reference ranges are influenced by a variety of environmental | [facility] | | influences, age, gender and ethnicity. The supplied reference limits | LABORATORY | | are based on published values utilizing a similar TSH assay, and | SERVICES, CORE | | should be interpreted with caution. | | + + + + + + + + | Performing | Address | City/State/Zipcode | Phone Number | | Organization | | | | + + + + + | [facility] | [address] | [place] [address] | | | SERVICES, CORE | [address] | | | + + + + + LIVER SET (AST,ALT,BILI TOTAL,BILI DIRECT,ALK PHOS,ALB,PROT TOTAL) (11/25/2018 1:12 PM PDT ) + +---------+ + + + | Component | Value | Ref Range | Performed | Pathologist | | | | | At | Signature | + +---------+ + + + | ALBUMIN, | 3.5 | 3.5 - 4.7 g/dL | [facility] | | | PLASMA | | | LABORATORY | | | (LAB) | | | SERVICES, | | | | | | CORE | | + +---------+ + + + | BILIRUBIN | 0.4 | 0.3 - 1.2 mg/dL | [facility] | | | TOTAL | | | LABORATORY | | | | | | SERVICES, | | | | | | CORE | | + +---------+ + + + | BILIRUBIN | <0.1 | 0.0 - 0.3 mg/dL | [facility] | | | DIRECT | | | LABORATORY | | | | | | SERVICES, | | | | | | CORE | | + +---------+ + + + | ALK PHOS | 86 | 42 - 98 U/L | [facility] | | | | | | LABORATORY | | | | | | SERVICES, | | | | | | CORE | | + +---------+ + + + | AST(SGOT) | 14 | <=41 U/L | [facility] | | | | | | LABORATORY | | | | | | SERVICES, | | | | | | CORE | | + +---------+ + + + | ALT (SGPT) | 18 | <=60 U/L | [facility] | | | | | | LABORATORY | | | | | | SERVICES, | | | | | | CORE | | + +---------+ + + + | TOTAL | 7.5 | 6.4 - 8.2 g/dL | [facility] | | | PROTEIN, | | | LABORATORY | | | PLASMA | | | SERVICES, | | | (LAB) | | | CORE | | + +---------+ + + + | AST CMNT | No Hemo | | [facility] | | | | | | LABORATORY | | | | | | SERVICES, | | | | | | CORE | | + +---------+ + + + | BILI T CMNT | No Hemo | | [facility] | | | | | | LABORATORY | | | | | | SERVICES, | | | | | | CORE | | + +---------+ + + + | BILI D CMNT | No Hemo | | [facility] | | | | | | LABORATORY | | | | | | SERVICES, | | | | | | CORE | | + +---------+ + + + + + | Specimen | + + | Blood - Blood | | (substance) | + + + + + + + | Performing | Address | City/State/Zipcode | Phone Number | | Organization | | | | + + + + + | [facility] | [address] | [place] [address] | | | SERVICES, CORE | [address] | | | + + + + + BASIC METABOLIC SET (NA, K, CL, TCO2, BUN, CR, GLU, CA) (11/25/2018 1:12 PM PDT) + +---------+ + + + | Component | Value | Ref Range | Performed | Pathologist | | | | | At | Signature | + +---------+ + + + | GLUCOSE, | 94 | 70 - 99 mg/dL | [facility] | | | PLASMA | | | LABORATORY | | | (LAB) | | | SERVICES, | | | | | | CORE | | + +---------+ + + + | BUN, PLASMA | 15 | 6 - 20 mg/dL | [facility] | | | (LAB) | | | LABORATORY | | | | | | SERVICES, | | | | | | CORE | | + +---------+ + + + | CREATININE | 1.10 | 0.60 - 1.10 | [facility] | | | PLASMA | | mg/dL | LABORATORY | | | (LAB) | | | SERVICES, | | | | | | CORE | | + +---------+ + + + | EGFR | >60 | >60 mL/min | [facility] | | | - | | | LABORATORY | | | LUXEMBOURGER | | | SERVICES, | | | | | | CORE | | + +---------+ + + + | EGFR NON | 52 (L) | >60 mL/min | [facility] | | | -BRY | | | LABORATORY | | | RICAN | | | SERVICES, | | | | | | CORE | | + +---------+ + + + | SODIUM, | 140 | 136 - 145 | [facility] | | | PLASMA | | mmol/L | LABORATORY | | | (LAB) | | | SERVICES, | | | | | | CORE | | + +---------+ + + + | POTASSIUM, | 3.8 | 3.4 - 5.0 | [facility] | | | PLASMA | | mmol/L | LABORATORY | | | (LAB) | | | SERVICES, | | | | | | CORE | | + +---------+ + + + | CHLORIDE, | 108 | 97 - 108 mmol/L | [facility] | | | PLASMA | | | LABORATORY | | | (LAB) | | | SERVICES, | | | | | | CORE | | + +---------+ + + + | TOTAL CO2, | 28 | 21 - 32 mmol/L | [facility] | | | PLASMA | | | LABORATORY | | | (LAB) | | | SERVICES, | | | | | | CORE | | + +---------+ + + + | CALCIUM, | 9.2 | 8.6 - 10.2 | [facility] | | | PLASMA | | mg/dL | LABORATORY | | | (LAB) | | | SERVICES, | | | | | | CORE | | + +---------+ + + + | ANION GAP | 4 | 4 - 11 mmol/L | [facility] | | | | | | LABORATORY | | | | | | SERVICES, | | | | | | CORE | | + +---------+ + + + | POTASSIUM | No Hemo | | [facility] | | | CMNT | | | LABORATORY | | | | | | SERVICES, | | | | | | CORE | | + +---------+ + + + + + | Specimen | + + | Blood - Blood | | (substance) | + + + + + | Narrative | Performed At | + + + | GFR is estimated using the MDRD equation recommended by the National | [facility] | | Kidney Disease Education Program. Estimated GFR Interpretive | LABORATORY | | Information: <60 mL/min/1.73 sq m Chronic Kidney | SERVICES, CORE | | Disease <15 mL/min/1.73 sq m Kidney Failure | | | Estimated GFR greater than 60 mL/min/1.73 sq m is of limited clinical | | | value. The MDRD equation is not valid in the following situations: | | | - Patients under 18 years of age - Severe malnutrition or obesity | | | - Vegetarian diet - Rapidly changing kidney function - Amputees, | | | paraplegics, or other muscle-wasting diseases | | + + + + + + + + | Performing | Address | City/State/Zipcode | Phone Number | | Organization | | | | + + + + + | [facility] | [address] | [place] [address] | | | SERVICES, CORE | [address] | | | + + + + + DRUG SCREEN,URINE;W/CONFIRM (11/25/2018 1:12 PM PDT) + + + + + + | Component | Value | Ref Range | Performed | Pathologist | | | | | At | Signature | + + + + + + | AMPHETAMINE | Negative | Negative | [facility] | | | , URINE | | | LABORATORY | | | | | | SERVICES, | | | | | | CORE | | + + + + + + | AMPHETAMINE | <125 | <1,000 ng/mL | [facility] | | | CONC, | | | LABORATORY | | | URINE | | | SERVICES, | | | | | | CORE | | + + + + + + | BARBITURATE | Negative | Negative | [facility] | | | S, URINE | | | LABORATORY | | | | | | SERVICES, | | | | | | CORE | | + + + + + + | BARBITURATE | <20 | <200 ng/mL | [facility] | | | S CONC, | | | LABORATORY | | | URINE | | | SERVICES, | | | | | | CORE | | + + + + + + | BENZODIAZEP | Negative | Negative | [facility] | | | PAUL, URINE | | | LABORATORY | | | | | | SERVICES, | | | | | | CORE | | + + + + + + | BENZODIAZEP | <30 | <200 ng/mL | [facility] | | | INE CONC, | | | LABORATORY | | | URINE | | | SERVICES, | | | | | | CORE | | + + + + + + | Cocaine, | Negative | Negative | [facility] | | | Urine | | | LABORATORY | | | | | | SERVICES, | | | | | | CORE | | + + + + + + | COCAINE | <35 | <300 ng/mL | [facility] | | | CONC, URINE | | | LABORATORY | | | | | | SERVICES, | | | | | | CORE | | + + + + + + | OPIATES, | Negative | Negative | [facility] | | | URINE | | | LABORATORY | | | | | | SERVICES, | | | | | | CORE | | + + + + + + | OPIATE | <50 | <300 ng/mL | [facility] | | | CONC, URINE | | | LABORATORY | | | | | | SERVICES, | | | | | | CORE | | + + + + + + | CANNABINOID | Negative | Negative | [facility] | | | S, URINE | | | LABORATORY | | | | | | SERVICES, | | | | | | CORE | | + + + + + + | CANNABINOID | <15 | <50 ng/mL | [facility] | | | CONC, | | | LABORATORY | | | URINE | | | SERVICES, | | | | | | CORE | | + + + + + + | METHADONE, | Negative | Negative | [facility] | | | URINE | | | LABORATORY | | | | | | SERVICES, | | | | | | CORE | | + + + + + + | METHADONE | <107 | <300 ng/mL | [facility] | | | CONC, URINE | | | LABORATORY | | | | | | SERVICES, | | | | | | CORE | | + + + + + + | OXYCODONE, | Positive (A)Comment: To | Negative | [facility] | | | URINE | be confirmed by | | LABORATORY | | | | alternate method | | SERVICES, | | | | | | CORE | | + + + + + + + + | Specimen | + + | Urine - Urine | | (substance) | + + + + + | Narrative | Performed At | + + + | Minimum drug concentration yielding a positive urine drug screen | [facility] | | Amphetamines >=1000 ng/mL | LABORATORY | | Barbiturates >=200 ng/mL | [facility] | | Benzodiazepine >=200 ng/mL Cocaine | | | >=300 ng/mL Methadone | | | >=300 ng/mL Opiates >=300 ng/mL | | | Oxycodone >=100 ng/mL THC - | | | Cannabinoid >=50 ng/mL Screening results are not | | | confirmed by alternate method unless requested. Results are to be | | | used for medical (i.e. treatment) purposes only. The reported | | | result is an estimated concentration of drug that can be detected by | | | the method of analysis. Amphetamine Note: Benzphetamine and | | | Selegiline may produce positive results with this assay. Opiates | | | Notes: Therapeutic doses of Ofloxcin (Floxin) or Levofloxacin | | | (Levaquin) may produce positive results with this assay. The | | | substaces being tested for must include Amphetamines, Benzodiazepines, | | | Cocaine, Alcohol, Cannabinoids, Opiates. | | + + + + + + + + | Performing | Address | City/State/Zipcode | Phone Number | | Organization | | | | + + + + + | [facility] | [address] | [place] [address] | | | SERVICES, CORE | [address] | | | + + + + + NT-PRO BNP (11/25/2018 1:12 PM PDT) + + + + + + | Component | Value | Ref Range | Performed | Pathologist | | | | | At | Signature | + + + + + + | NT-PRO BNP | 1,019 (H) | <125 pg/mL | [facility] | | | | | | LABORATORY | | | | | | SERVICES, | | | | | | CORE | | + + + + + + + + | Specimen | + + | Blood - Blood | | (substance) | + + + + + + + | Performing | Address | City/State/Zipcode | Phone Number | | Organization | | | | + + + + + | [facility] | [address] | [place] [address] | | | SERVICES, CORE | [address] | | | + + + + + documented in this encounter Visit Diagnoses + + | Diagnosis | + + | Pulmonary hypertension (HCC) Other chronic pulmonary heart diseases | + + documented in this encounter"
--- OUTSIDE RECORDS SUMMARY | ~2019-10-23 | XMS | Encounter Summary ---
Demographics + + + | Address | [address] | | | [place] [address] | + + + | Home Phone | | + + + | Preferred Language | Unknown | + + + | Marital Status | Single | + + + | Scientology Affiliation | CHR | + + + | Race | White | + + + | Ethnic Group | Not or | + + + Author + + + | Author | [facility] | + + + | Organization | [facility] | + + + | Address [...] Team Providers + +------+ + | Care Deputy General Counsel Name | Role | Phone | + [...] | [address] | [place], | | | | | [address] | [place] [address] | | | | | [address], [facility] | [phone] | | | | | [place], [place] | | | | | | [address] | | | | | | [phone] | | | +--------+ + + + [...] + +--------+ + + + | X-RAY CHEST 2 VIEW | Routin | 10/12/2017 | Pulmonary | Results for this | | | e | 11:11 AM | hypertension (HCC) | procedure are in the | | | | PDT | | results section. | + +--------+ + + + documented in this encounter Results X-RAY CHEST 2 VIEW (10/12/2017 11:11 AM PDT) + + | Specimen | + + | | + + + + + | Narrative | Performed At | + + + | EXAM: CHEST 2 VIEWS HISTORY: Cough, persistent | [facility] | | COMPARISON: CT 03/22/2017, chest radiograph 03/18/2017 FINDINGS: | RADIOLOGY VOICE | | PA and lateral chest radiograph obtained. Cardiomegaly is unchanged. | RECOGNITION 2 | | The lungs are clear. There is no pulmonary edema. No pleural effusion | | | or pneumothorax. No acute osseous abnormality. IMPRESSION: | | | Clear lungs. I have personally reviewed the images and, if | | | necessary, edited the report. I agree with the report as now | | | presented. Final signature: Jalil Calixto MD 10/12/2017 11:16 | | | AM Preliminary: Jalil Calixto MD Dictation initiated: Jalil | | | MD Durga 10/12/2017 11:15 AM | | + + + + ---+ | Procedure Note | + ---+ | Service Account, Radiant Res In Interface - 10/12/2017 11:17 AM PDT EXAM: CHEST 2 | | VIEWS HISTORY: Cough, persistent COMPARISON: CT 03/22/2017, chest radiograph 03/18/2017 | | FINDINGS: PA and lateral chest radiograph obtained. Cardiomegaly is unchanged. The lungs | | are clear. There is no pulmonary edema. No pleural effusion or pneumothorax. No acute | | osseous abnormality. IMPRESSION: Clear lungs. I have personally reviewed the images and, | | if necessary, edited the report. I agree with the report as now presented. Final | | signature: Jalil Calixto MD 10/12/2017 11:16 AM Preliminary: Jalil Calixto MD | | Dictation initiated: Jalil Calixto MD 10/12/2017 11:15 AM | |PA and lateral chest radiograph obtained. Cardiomegaly is unchanged. The lungs are clear. T here is no pulmonary edema. No pleural effusion or pneumothorax. No acute osseous abnormalit y. | | | |IMPRESSION: | | | |Clear lungs. | | | |I have personally reviewed the images and, if necessary, edited the report. I agree with th e report as now presented. | | | |Final signature: Jalil Calixto MD 10/12/2017 11:16 AM | |Preliminary: Jalil Calixto MD | |Dictation initiated: Jalil Calixto MD 10/12/2017 11:15 AM | + ---+ + +---------+ + + | Performing | [...]
--- OUTSIDE RECORDS SUMMARY | ~2019-10-23 | XMS | Encounter Summary ---
Demographics + + + | Address | [address] | | | [place] [address] | + + + | Home Phone | | + + + | Preferred Language | Unknown | + + + | Marital Status | Single | + + + | Nondenominational Affiliation | CHR | + + + | Race | White | + + + | Ethnic Group | Not or | + + + Author + + + | Author | [facility] | + + + | Organization | [facility] | + + + | Address [...] Team Providers + +------+ + | Care Manager Intelligence Name | Role | Phone | + +------+ + | Bobbi Jenkins NP | PCP | | + +------+ + Reason for Referral Diagnostic Testing (Routine) + +--------+ + + + + | Status | Reason | Specialty | Diagnoses / | Referred By | Referred To | | | | | Procedures | Contact | Contact | + +--------+ + + + + | Authorized | | Cardiology | Diagnoses | [place], | External | | | | | Pulmonary | Beth Flores MD | Order | | | | | hypertension | [address] | | | | | | ([facility]) | [address] | | | | | | Hypoxemic | [address] | | | | | | respiratory | [place], [place] | | | | | | failure, | [address] | | | | | | chronic | Phone: | | | | | | ([facility]) | [phone] | | | | | | Procedures | Fax: | | | | | | TRANSTHORACI | [phone] | | | | | | C | | | | | | | ECHOCARDIOGR | | | | | | | AM, ADULT | | | | | | | TX TTE | | | | | | | W/DPPLR, | | | | | | | COMP | | | + +--------+ + + + + Reason for Visit + +--------+ + | Reason | Onset | Comments | | | Date | | + +--------+ + | Update On Condition | 06/11/ | | | | 2019 | | + +--------+ + Encounter Details +--------+ + + + + | Date | Type | Department | Care Team | Description | +--------+ + + + + | 06/11/ | Telephone | Pulmonary & | Beth Keith, | Update On Condition | | 2020 | | Critical Care | [address] | | | | | Medicine at | [facility] | | | | | [facility] | [place], [place] | | | | | [address] | [address] | | | | | [address] | [phone] | | | | | Donna, [address] [place] [address] | | | | | | [place], [place] | | | | | | [address] | | | | | | [phone] | | | +--------+ + + + [...] this encounter Miscellaneous Notes Telephone Encounter - Beth Keith MD - 06/13/2019 5:29 PM PDTReturned patient call. S he has been feeling quite short of breath for the last several weeks. Had been more hypoxic as well. Presented to an outside ED in [place], [place]. She was given a dose of IV lasix and p rednisone. CT/PE was also performed which was negative for embolus. Since her discharge she reports that her breathing has not improved but her hypoxemia is better. She has gained 9lbs since Wednesday. She admits to eating a piece of salty chicken. She is currently taking torsem carlos enrique 40mg BID, potassium 40 meq daily, ambrisentan 10mg, sildenafil 40mg TID. Recommendations: - increase torsemide to 40mg TID and potassium to 60meq for 2 days. Goal weight is ~200lbs - She is scheduled for an echo at [facility] tomorrow afternoon. We will need to follow u p on these results. el ephone Encounter - Yareli Bonilla MA - 06/13/2019 4:44 PM PDTCalled again, have left mult iple messages.. last attempt made I got disconnected. Paging Dr. Keith for further assistance. Dr. Keith will be calling her back here shortly. Called patient to notify her. elephone Encounter - Riri Ochoa - 06/13/2019 4:26 PM PDTPatient called back to express frustration that no one has gotten back to her regarding her weight and what she should do with her medicati on. She stated her timeline means she must have an answer before 5 PM. Sending high priority . elephone Encounter - Yareli Bonilla MA - 06/13/2019 2:22 PM PDTCalled to notify patient that it has been appro pipo. LVM for Imaging at [facility] to call us back so we can schedule the patients urgent hector ointment. I will try back in 10 min. elephone Encounter - Saniya Mcmillan - 06/13/2019 1:21 PM PDTGema called back to let Dr. Keith know that h er weight is up by 9 lbs since Wednesday. She would like doctor's advise as to how to proceed with medications. elepho ne Encounter - Saniya Mcmillan - 06/13/2019 10:03 AM PDTGema called anxious to find out when the order for an echo has been authorized. She is feeling worse and requests that it i s marked as urgent! el ephone Encounter - Yarlei Bonilla MA - 06/13/2019 8:40 AM PDTRouted to [facility] to see if this study needs a PA. Faxed the order to [phone].. Waiting to hear back on PA. elephone Encounter - Yareli Bonilla MA - 2019 4:28 PM PDT Patient would like the Echo to be done at [facility] Phone number [phone]. LVM for t hem to call back. ele phone Encounter - Beth Keith MD - 06/12/2019 3:48 PM PDTShe will need an urgent echo with a shunt study. I don't think I have any openings prior to her appointment on 06/28 but s jody it is only two weeks away and I would like her to get the echo prior, she can keep that date. Please find out if she would like to have the echo at [facility] or at another facility and I will place the order. elephone Encounter - DeyaniraSaniya hollingsworth - 06/12/2019 1:32 PM PDTSandra called to let Dr. Keith know that she was not admitted to hospital from ER visit. The doctor indicated that she should be seen prior to her scheduled visit 06/29/19 and would also need an echo. Electr onically signed by Saniya Mcmillan at 06/12/2019 1:45 PM PDTdocumented in this encounter Plan of Treatment + +------+--------+ + + | Name | Type | Priori | Associated Diagnoses | Order Schedule | | | | ty | | | + +------+--------+ + + | TRANSTHORACIC | ECG | Routin | Pulmonary | Ordered: 06/12/2019 | | ECHOCARDIOGRAM, | | e | hypertension (HCC) | | | ADULT | | | Hypoxemic | | | | | | respiratory failure, | | | | | | chronic (HCC) | | + +------+--------+ + + documented as of this encounter Visit Diagnoses + + | Diagnosis | + + | Pulmonary hypertension (HCC) - Primary Other chronic pulmonary heart diseases | + + | Hypoxemic respiratory failure, chronic (HCC) Chronic respiratory failure | + + documented in this encounter"
--- OUTSIDE RECORDS SUMMARY | ~2019-10-23 | XMS | Encounter Summary ---
Demographics + + + | Address | [address] | | | [place] [address] | + + + | Home Phone | | + + + | Preferred Language | Unknown | + + + | Marital Status | Single | + + + | Yarsanism Affiliation | CHR | + + + | Race | White | + + + | Ethnic Group | Not or | + + + Author + + + | Author | [facility] | + + + | Organization | [facility] | + + + | [...] Team Providers + +------+ + | Care Senior Regulatory Affairs Specialist Name | Role | Phone | [...] Description | +--------+--------+ + + + | 07/26/ | Refill | Pulmonary & | Mya Hall MD | Refill Request | | 2019 | | Critical Care | [address] | | | | | Medicine at | [facility], | | | | | [facility] | [place] [address] | | | | | [address] | [phone] | | | | | [address] | | | | | | Donna, [facility] Floor | | | | | | [place], [place] | | | | | | [address] | | | | | | [phone] | | | +--------+--------+ + + + [...] this encounter Miscellaneous Notes Telephone Encounter - Mindi Irwin MA - 07/27/2018 9:42 AM PDTFormatting of this not e might be different from the original. REFILL REQUEST DATE: July 27, 2018 PATIENT: Gema Barron [id number] MESSAGE: Received a refill request from the pharmacy. Requested Prescriptions Pending Prescriptions Disp Refills TORSEMIDE 20 mg oral tablet [Pharmacy Med Name: TORSEMIDE 20 MG TABLET] 60 tablet 2 Sig: take 2 tablets by mouth every morning and 1 tablet by mouth every evening if needed LAST APPOINTMENT: 10/12/17 at 3:39 pm NEXT APPOINTMENT: No future appointments scheduled in Pulmonary Disease. Patient's pharmacy has been verified: Yes [facility].[address] [place] [id number] documented in this encounter Plan of Treatment Not on filedocumented as of this encounter Visit Diagnoses Not on filedocumented in this encounter"
--- OUTSIDE RECORDS SUMMARY | ~2019-10-23 | XMS | Encounter Summary ---
Demographics + + + | Address | [address] | | | [place] [address] | + + + | Home Phone [...] + + + | Author | [facility] | + + + | Organization | [facility] | + + + | Address [...] Team Providers + +------+ + | Care Overnight Stocker Name | Role | Phone | + +------+ + | Bobbi Jenkins NP | PCP | | + +------+ + Encounter Details +--------+ + + + + | Date | Type | Department | Care Team | Description | +--------+ + + + + | 03/23/ | Hospital | Cardiac | Sjh, Car Ecg Tech | | | 2020 | Encounter | Non-Invasive Testing | [address] | | | | | at [facility] | [facility] | | | | | [address] | [place] [address] | | | | | [address] | | | | | | [place], [address] [place] [address] | | | | | | [place], [place] | | | | | | [address] | | | | | | [phone] | | | +--------+ + + + [...] 11 | 12/02/19 | | | SR (KLOR-CON M20) | mouth once daily. | tablet | | 19 | | | 20 mEq oral | | | | | | | tablet,ER | | | | | | | particles/crystals | | | | | | + + + +---------+ + + | bumetanide 2 mg | Take 2 tablets by | 90 | 11 | 02/21/19 | | | oral tablet | mouth once daily in | tablet | | 20 | 0 | | | the morning AND 1 | | | | | | | tablet once daily in | | | | | | | the evening. | | | | | + + + +---------+ + + documented as of this encounter Plan of Treatment Not on filedocumented as of this encounter Procedures + +--------+ + + + | Procedure Name | Priori | Date/Time | Associated Diagnosis | Comments | | | ty | | | | + +--------+ + + + | 12 LEAD ECG | Routin | 03/23/2019 | Pulmonary | Results for this | | | e | 1:50 PM | hypertension (HCC) | procedure are in the | | | | PST | | results section. | + +--------+ + + + documented in this encounter Results 12 LEAD ECG (03/23/2019 1:50 PM PST) + + + + + + | Component | Value | Ref Range | Performed | Pathologist | | | | | At | Signature | + + + + + + | VENTRICULAR | 90 | bpm | [facility] | | | RATE | | | OF | | | | | | CARDIOLOGY | | + + + + + + | ATRIAL RATE | 92 | ms | [facility] | | | | | | OF | | | | | | CARDIOLOGY | | + + + + + + | P-R | 150 | ms | [facility] | | | INTERVAL | | | OF | | | | | | CARDIOLOGY | | + + + + + + | P AXIS | 65 | deg | [facility] | | | | | | OF | | | | | | CARDIOLOGY | | + + + + + + | QRS | 88 | ms | [facility] | | | DURATION | | | OF | | | | | | CARDIOLOGY | | + + + + + + | QT | 386 | ms | [facility] | | | | | | OF | | | | | | CARDIOLOGY | | + + + + + + | QTC-JAYDON | 472 | ms | [facility] | | | | | | OF | | | | | | CARDIOLOGY | | + + + + + + | R AXIS | -37 | deg | [facility] | | | | | | OF | | | | | | CARDIOLOGY | | + + + + + + | T AXIS | 74 | deg | [facility] | | | | | | OF | | | | | | CARDIOLOGY | | + + + + + + | ECG | Sinus rhythm | | [facility] | | | IMPRESSION | | | OF | | | | | | CARDIOLOGY | | + + + + + + | ECG | Borderline right axis | | [facility] | | | IMPRESSION | deviation | | OF | | | | | | CARDIOLOGY | | + + + + + + | ECG | Abnormal T, consider | | [facility] | | | IMPRESSION | ischemia, anterior | | OF | | | | leads- ABNORMAL ECG - | | CARDIOLOGY | | + + + + + + | ECG | Electronically signed | | [facility] | | | IMPRESSION | by: MARY SAM | | OF | | | | 03-25-2019 17:09:18 | | CARDIOLOGY | | + + + + + [...] + + + + + | [facility] | [address] | [place], [place] | | | CARDIOLOGY | [facility] | [address] | | + + + + + documented in this encounter Visit Diagnoses Not on filedocumented in this encounter"
--- OUTSIDE RECORDS SUMMARY | ~2019-10-23 | XMS | Encounter Summary ---
Demographics + + + | Address | [address] | | | [place] [address] | + + + | Home Phone | | + + + | Preferred Language | Unknown | + + + | Marital Status | Single | + + + | Lutheran Affiliation | CHR | + + + | Race | White | + + + | Ethnic Group | Not or | + + + Author + + + | Author | [facility] | + + + | Organization | [facility] | + + + | [...] Providers + +------+ + | Care Manager Combination Name | Role | Phone | + +------+ + | Bobbi Jenkins NP | PCP | | + +------+ + Reason for Visit + +--------+ + | Reason | Onset | Comments | | | Date | | + +--------+ + | Medication Refill | 01/30/ | Torsemide | | | 2019 | | + +--------+ + Encounter Details +--------+ + + + + | Date | Type | Department | Care Team | Description | +--------+ + + + + | 01/30/ | Telephone | Pulmonary & | Kate Benjamin, | Medication Refill | | 2019 | | Critical Care | [address] | (Torsemide) | | | | Medicine at | [facility] | | | | | [facility] [address] | [place], [place] | | | | | [address] | [address] | | | | | [address] | [phone] | | | | | Donna, [address] [place] [address] | | | | | | [place], [place] | | | | | | [address] | | | | | | [phone] | | | +--------+ + + + [...] Telephone Encounter - Sydni Saldana MA - 01/30/2019 3:54 PM PSTFormatting of this note horacio ht be different from the original. See msg below. Rx pended. REFILL REQUEST DATE: January 30, 2019 PATIENT: Gema Barron [id number] MESSAGE: On current med list Requested Prescriptions Pending Prescriptions Disp Refills torsemide 20 mg oral tablet 90 tablet 2 Sig: take 2 tablets by mouth every morning and 1 tablet by mouth EVERY EVENING LAST APPOINTMENT: 11/25/18 at 3:36 pm NEXT APPOINTMENT: No future appointments scheduled in Pulmonary Disease. Patient's pharmacy has been verified: Yes [facility] [address] elephone Encounter - Saniya Wang - 01/30/2019 3:30 PM PSTSandy called indicating she had requested a refill from her pharmacy, [facility] in [place], for Torsemide. She wanted to let us know as it is a medication she needs and ran out this week-end. documented in this encounter Plan of Treatment Not on filedocumented as of this encounter Visit Diagnoses Not on filedocumented in this encounter"
--- OUTSIDE RECORDS SUMMARY | ~2019-10-23 | XMS | Encounter Summary ---
Demographics + + + | Address | [address] | | | [place] [address] | + + + | Home Phone | | + + + | Preferred Language | Unknown | + + + | Marital Status | Single | + + + | Restoration Affiliation | CHR | + + + [...] Providers + +------+ + | Care Manager Commodities Name | Role | Phone | + +------+ + | Eve Daugherty MD | PCP | | + +------+ + Reason for Visit + +--------+ + | Reason | Onset | Comments | | | Date | | + +--------+ + | Medication Question | 12/03/ | Ric | | | 2017 | | + +--------+ + Encounter Details +--------+ + + + + | Date | Type | Department | Care Team | Description | +--------+ + + + + | 12/03/ | Telephone | Pulmonary & | Mya Hall MD | Medication Question | | 2018 | | Critical Care | [address] | (Letairis) | | | | Medicine at | [facility], | | | | | Physicians [place] | [place] [address] | | | | | [address] | [phone] | | | | | [address] | | | | | | Donna, [facility] Floor | | | | | | [place], [place] | | | | | | [address] | | | | | | [phone] | | | +--------+ + + + [...] Telephone Encounter - Mindi Irwin MA - 12/03/2017 3:13 PM PDTReceived a voicemail f rom the patient stating that shortly after taking her letairis her bp dropped to 86/69 with a pulse of 80. Patient did not want to take the medication again until she knew if it would be okay to take. Spoke with Dr. Hall discussed that patient is on sildenafil and letairis. H e recommended the patient cut her letairis in half and take a half tablet as directed. Wilhelm d and spoke with Rosamaria and relayed this information. She repeated instructions and confirmed understanding of these directions. Electronically signed by Mindi Irwin MA at 018 3:16 PM PDTdocumented in this encounter Plan of Treatment Not on filedocumented as of this encounter Visit Diagnoses Not on filedocumented in this encounter"
--- OUTSIDE RECORDS SUMMARY | ~2019-10-23 | XMS | Encounter Summary ---
Demographics + + + | Address | [address] | | | [place] [address] | + + + | Home Phone | | + + + | Preferred Language | Unknown | + + + | Marital Status | Single | + + + | Rastafari Affiliation | CHR | + + + | Race | White | + + + | Ethnic Group | Not or | + + + Author + + + | Author | [facility] | + + + | Organization | [facility] | + + + | Address [...] Team Providers + +------+ + | Care Marketing And Communications Officer Name | Role | Phone | + +------+ + | Eve Daugherty MD | PCP | | + +------+ + Reason for Visit + +--------+ + | Reason | Onset | Comments | | | Date | | + +--------+ + | Social work | 08/23/ | | | consultation | 2019 | | + +--------+ + Encounter Details +--------+ + + + + | Date | Type | Department | Care Team | Description | +--------+ + + + + | 08/23/ | Telephone | SOCIAL WORK | Genoveva Vergara | Social work | | 2019 | | AMBULATORY [address] | consultation | | | | [address] | [place], | | | | | Mailcode: [place] | [place] [address] | | | | | [place], [place] | | | | | | [address] | | | | | | [phone] | | | +--------+ + + + [...] this encounter Miscellaneous Notes Telephone Encounter - Genoveva Vergara - 08/23/2018 12:52 PM PDTReceived referral from ADRIAN Ferrer Specialist (PULFA) this morning requesting SW assist patient with reaching her OHP/HARDWARE DEVELOPER: [facility] medical transportation brokerage. Called patient this morning and provided her with contact information to [facility] on Services at (her [employer]) brokerage). Advised patient she needs to contact her brokerage at least two full business days before t he date she needs to travel to her medical appointment(s). Explained she will need to provi de the providers names, addresses and phone numbers, as well as the appointment times and da serafin to the brokerage in order to arrange transportation. Advised patient that she can use t hese transportation benefits locally, as well as [id number]. Also advised patient that she can request preauthorization for partial reimbursement of: mi leage (25 cents per mile), meals and lodging (up to $40 per night). Emphasized preauthoriza tion must be obtained prior to date of travel or she will be ineligible to receive reimburse ment from the brokerage. Explained that if she does not have access to private transportati on, her brokerage can arrange [id number] free roundtrip medical transportation for her. Ms. Barron asked whether brokerage will also transport someone to assist her on the trip. Told her that each brokerage addresses this issue differently. Some brokerages require a letter from a PCP as to whether is is medically necessary for the person to have a support p erson. Other brokerages simply talk with the patient about their needs. Advised patient that there may be occasions when she needs to be at [facility] quite early or hav e appointments late into the afternoon. Explained that if she needs lodging, that she jennifer ld contact me directly at to make a request and to give me as much advance no astrid as possible. No additional interventions by Armored Service Technician Services SW Team planned at this time. Genoveva Vergara LCSW #[id number] Armored Service Technician Services SW documented in this encounter Plan of Treatment Not on filedocumented as of this encounter Visit Diagnoses Not on filedocumented in this encounter"
--- OUTSIDE RECORDS SUMMARY | ~2019-10-23 | XMS | Encounter Summary ---
Demographics + + + | Address | [address] | | | [place] [address] | + + + | Home Phone | | + + + | Preferred Language | Unknown | + + + | Marital Status | Single | + + + | Episcopalian Affiliation | CHR | + + + | Race | White | + + + | Ethnic Group | Not or | + + + Author + + + | Author | [facility] | + + + | Organization | [facility] | + + + | [...] Team Providers + +------+ + | Care Blister Pack Operator Name | Role | Phone | + +------+ + | Eve Daugherty MD | PCP | | + +------+ + Reason for Visit + +--------+ + | Reason | Onset | Comments | | | Date | | + +--------+ + | Medication Question | 11/26/ | Ric | | | 2017 | | + +--------+ + Encounter Details +--------+ + + + + | Date | Type | Department | Care Team | Description | +--------+ + + + + | 11/26/ | Telephone | Pulmonary & | Mya Hall MD | Medication Question | | 2018 | | Critical Care | [address] | (Letairis) | | | | Medicine at | [facility], | | | | | Physicians [place] | [place] [address] | | | | | [address] | [phone] | | | | | [address] | | | | | | Donna, [facility] Floor | | | | | | [place], [place] | | | | | | [address] | | | | | | [phone] | | | +--------+ + + + [...] Telephone Encounter - Sydni Saldana MA - 11/26/2017 3:34 PM PDTI called pt and relayed the msg below to her. eleph one Encounter - Mya Hall MD - 11/26/2017 3:29 PM PDTPatient to take both Letaris (Ambri sentan) and Sildenafil at the same time. Continue increased torsemide for a few more days as ambrisentan can lead to fluid retention . elephone Encounter - Mindi Oquendo MA - 11/26/2017 9:55 AM PDTReceived a call from the patient stating that joie rodriguez has received her letairis and is wanting to make sure that Dr. Hall wanted her to take it in addition to the sildenafil. Reviewed note from last visit and advised patient that it arizmendi s look like that is what the goal was and that taking both medications is not uncommon. Advi sed that I would double check with Dr. Hall for reassurance. She also wanted to know if she should be taking the torsemide as aggressively as recommended with starting the letairis. Raymond sheth plans to take her first dose of letairis this afternoon. She stated that she feels muc h better than she has been but still has a lot of water retention. She said she's only down about 4 pounds and has not yet been diuresed. Routing to Dr. Hall to advise on medication. E lectronically signed by Mindi Irwin MA at 11/26/2017 10:10 AM PDTdocumented in this en counter Plan of Treatment Not on filedocumented as of this encounter Visit Diagnoses Not on filedocumented in this encounter"
--- OUTSIDE RECORDS SUMMARY | ~2019-10-23 | XMS | Encounter Summary ---
Demographics + + + | Address | [address] | | | [place] [address] | + + + | Home Phone | | + + + | Preferred Language | Unknown | + + + | Marital Status | Single | + + + | Moravian Affiliation | CHR | + + + | Race | White | + + + | Ethnic Group | Not or | + + + Author + + + | Author | [facility] | + + + | Organization | [facility] | + + + | Address | [...] Team Providers + +------+ + | Care Yarn Salvager Name | Role | Phone | + +------+ + | Bobbi Jenkins NP | PCP | | + +------+ + Encounter Details +--------+ + + + + | Date | Type | Department | Care Team | Description | +--------+ + + + + | 04/08/ | Pharmacy | Outpatient Retail | | | | 2017 | Visit | [facility] | | | | | | [address] | | | | | | [address] [place], [place] | | | | | | [address] | | | | | | [phone] | | | +--------+ + + + [...]
--- OUTSIDE RECORDS SUMMARY | ~2019-10-23 | XMS | Encounter Summary ---
Demographics + + + | Address | [address] | | | [place] [address] | + + + | Home Phone | | + + + | Preferred Language | Unknown | + + + | Marital Status | Single | + + + | Anabaptist Affiliation | CHR | + + + [...] Team Providers + +------+ + | Care Property Clerk Name | Role | Phone | + +------+ + | Eve Daugherty MD | PCP | | + +------+ + Encounter Details +--------+ + + + + | Date | Type | Department | Care Team | Description | +--------+ + + + + | 04/08/ | Hospital | Pulmonary Function | Tech, Pfl Adult | | | 2018 | Encounter | Lab at [facility] [address] | | | | | [address] | [facility], | | | | | [place], | [place] [address] | | | | | 3rd [facility], | | | | | | [place] [address] | | | | | | [phone] | | | +--------+ + + + [...] mouth | 118 mL | 0 | 02/17/20 | | | dextromethorphan-gua | every four [...] 6 MINUTE WALK, PULM | Routin | 04/08/2017 | Pulmonary | Results for this | | FUNCTION LAB | e | 8:25 AM | hypertension (HCC) | procedure are in the | | | | PST | | results section. | + +--------+ + + + documented in this encounter Results 6 MINUTE WALK, PULM FUNCTION LAB (04/08/2017 8:25 AM PST) + + + + + + | Component | Value | Ref Range | Performed | Pathologist | | | | | At | Signature | + + + + + + | PULMONARY | Site: [facility] and | | [facility] | | | INTERPRETAT | [facility], [facility] | | SPECIAL | | | ION | [facility] | | DIAGNOSTICS | | | | [address],[place], [place], | | - | | | | [id number]: [id number] | | PULMONARY | | | | Name: GEMA POLLACK | | FUNCTION | | | | SVamericait Date: 04/08/2017 | | | | | | Second ID: | | | | | | [id number]: | | | | | | [place], CarlyAge: 52 | | | | | | : 1965 Sex: | | | | | | Female Race: | | | | | | CaucasianHeight: 164.00 | | | | | | Cms Weight: 74.50 | | | | | | Kgs BSA: | | | | | | 1.81Diagnosis: | | | | | | I27.0Dyspnea: No Dyspnea | | | | | | Cough: Non-Productive | | | | | | Wheeze: No WheezeTbco | | | | | | Prod: Never | | | | | | SmokedMedications: | | | | | | Albuterol and | | | | | | SuldenafilPost Test | | | | | | Comments: Patient height | | | | | | and weight reviewed. | | | | | | Good patient effort | | | | | | &cooperation. 6- Minute | | | | | | Walk Test Baseline | | | | | | data: Heart rate: | | | | | | 83 Sp02: 97 | | | | | | Dyspnea (Lynette scale): | | | | | | 0Fatigue (Lynette scale): | | | | | | .5 Post test data: | | | | | | Heart rate: 114 | | | | | | Sp02: 95 Dyspnea | | | | | | (Lynette scale): 3Fatigue | | | | | | (Lynette scale): 41 minute | | | | | | post test: Heart rate: | | | | | | 91 HHR1(Posttest | | | | | | heart rate - 1 | | | | | | minuteposttest heart | | | | | | rate): 23 Distance | | | | | | walked: 970 Feet | | | | | | Minutes walked: 6 | | | | | | min Test performed on: | | | | | | Room Air Pt had to stop | | | | | | at 4 minutes for | | | | | | dizziness and SOB. Pt | | | | | | started the test with | | | | | | achest pain of 4. Pt has | | | | | | had chest pain since | | | | | | last wednesday with a | | | | | | pain scale ofbetween | | | | | | 4-6. | | | | | | | [...] Interpretation: | | | | | | INTERPRETATION: SIX | | | | | | MINUTE WALK:The oxygen | | | | | | saturation at the end of | | | | | | the walk remained in | | | | | | the normal range anddid | | | | | | not fall | | | | | | significantly.The | | | | | | distance walked is | | | | | | moderately reduced ( | | | | | | 900-1100 feet).The Heart | | | | | | Rate Recovery ( Heart | | | | | | rate immediately post | | | | | | 6MW minus heart rate at | | | | | | 1minute post- 6MW) is | | | | | | normal (Normal >12 | | | | | | beats/minute). MMThis | | | | | | interpretation has been | | | | | | electronically signed: | | | | | | Guy Olivia | | | | | | 04/09/201704:37:06 PM | | | | + + + + + + | DISTANCE | [address] | | [facility] | | | WALKED-METE [...] + | [facility] | [address] | [place], [place] | | | DIAGNOSTICS - | [address] | [address] | | | PULMONARY FUNCTION | | | | + + + + + documented in this encounter Visit Diagnoses + + | Diagnosis | + + | Pulmonary hypertension (HCC) Other chronic pulmonary heart diseases | + + documented in this encounter"
--- OUTSIDE RECORDS SUMMARY | ~2019-10-23 | XMS | Encounter Summary ---
Demographics + + + | Address | [address] | | | [place] [address] | + + + | Home Phone | | + + + | Preferred Language | Unknown | + + + | Marital Status | Single | + + + | Caodaism Affiliation | CHR | + + + | Race | White | + + + | Ethnic Group | Not or | + + + Author + + + | Author | [facility] | + + + | Organization | [facility] | + + + | [...] Team Providers + +------+ + | Care Assistant Spa Manager Name | Role | Phone | + +------+ + | Eve Daugherty MD | PCP | | + +------+ + Encounter Details +--------+ + + + + | Date | Type | Department | Care Team | Description | +--------+ + + + + | 08/01/ | Documentati | Pulmonary & | Mya Hall MD | | | 2019 | on | Critical Care | [address] | | | | | Medicine at [facility], | | | | | Phys[facility] [place] | [place] [address] | | | | | [address] | [phone] | | | | | [address] [facility] | | | | | | [place], [address] Floor | | | | | | [place], [place] | | | | | | [address] | | | | | | [phone] | | | +--------+ + + + [...]
--- OUTSIDE RECORDS SUMMARY | ~2019-10-23 | XMS | Encounter Summary ---
Demographics + + + | Address | [address] | | | [place] [address] | + + + | Home Phone | | + + + | Preferred Language | Unknown | + + + | Marital Status | Single | + + + | Anabaptism Affiliation | CHR | + + + [...] Team Providers + +------+ + | Care Court Recording Monitor Name | Role | Phone | + +------+ + | Bobbi Jenkins NP | PCP | | + +------+ + Reason for Visit + +--------+ + | Reason | Onset | Comments | | | Date | | + +--------+ + | Refill Request | 12/01/ | | | | 2019 | | + +--------+ + Encounter Details +--------+--------+ + + + | Date | Type | Department | Care Team | Description | +--------+--------+ + + + | 12/01/ | Refill | Pulmonary & | Kate Benjamin, | Refill Request | | 2019 | | Critical Care | [address] | | | | | Medicine at | [facility] | | | | | [facility] [address] | [place], [place] | | | | | [address] | [address] | | | | | [address] | [phone] | | | | | [place], [address] [place] [address] | | | | | | [place], [place] | | | | | | [address] | | | | | | [phone] | | | +--------+--------+ + + + [...] Telephone Encounter - Sydni Saldana MA - 12/01/2018 8:19 AM PDTFormatting of this note horacio ht be different from the original. REFILL REQUEST DATE: December 01, 2018 PATIENT: Gema Barron [id number] MESSAGE: On current med list Requested Prescriptions Pending Prescriptions Disp Refills potassium chloride SR (KLOR-CON M20) 20 mEq oral tablet,ER particles/crystals 60 tablet 11 Sig: Take 2 tablets by mouth once daily. LAST APPOINTMENT: 11/25/18 at 3:37 pm NEXT APPOINTMENT: No future appointments scheduled in Pulmonary Disease. Patient's pharmacy has been verified: Yes [facility].[address] [place] [phone] documented in this encou nter Plan of Treatment Not on filedocumented as of this encounter Visit Diagnoses Not on filedocumented in this encounter"
--- OUTSIDE RECORDS SUMMARY | ~2019-10-23 | XMS | Encounter Summary ---
Demographics + + + | Address | [address] | | | [place] [address] | + + + | Home Phone | | + + + | Preferred Language | Unknown | + + + | Marital Status | Single | + + + | Sikhism Affiliation | CHR | + + + | Race | White | + + + | Ethnic Group | Not or | + + + Author + + + | Author | [facility] | + + + | Organization | [facility] | + + + | [...] Team Providers + +------+ + | Care Carton Stapler Name | Role | Phone | + +------+ + | Eve Daugherty MD | PCP | | + +------+ + Reason for Visit + +--------+ + | Reason | Onset | Comments | | | Date | | + +--------+ + | Medication | 10/22/ | Letaris | | | 2017 | | + +--------+ + Encounter Details +--------+ + + + + | Date | Type | Department | Care Team | Description | +--------+ + + + + | 10/22/ | Telephone | Pulmonary & | Mya Hall MD | Medication (Letaris) | | 2018 | | Critical Care | [address] | | | | | Medicine at | [facility], | | | | | [facility] [place] | [place] [address] | | | | | [address] | [phone] | | | | | [address] [facility] | | | | | | [place], [address] [place] [address] | | | | | | [place] | | | | | | [address] | | | | | | [phone] | | | +--------+ + + + [...] Telephone Encounter - Sydni Saldana MA - 10/25/2017 10:03 AM PDTAccredo called back and I Charissa know that [facility] couldn't find the pt. She determined that this patient needs to have a referral form for the Letaris filled out. She is faxing the form over now. Electr onically signed by Sydni Saldana MA at 10/25/2017 10:07 AM PDTTelephone Encounter - Pham Saldana MA - 10/25/2017 9:30 AM PDTThe number below is a phone # for [facility] not a fax #. I called and they do not have this patient enrolled in their system. I called [employer] back and they told me that they couldn't find the pt either and Yenni was in a meeting. They sent a msg to Yenni asking that she call me back when she gets out of her meeting, so that I can discuss the issue below with her. JuliaElectronically signed by Sydni Saldana MA at 10/25 9:37 AM PDTTelephone Encounter - Sydni Saldana MA - 10/25/2017 8:24 AM PDTRx printed out and faxed to the number provided below. Electronically signed by Sydni Saldana MA at 8:31 AM PDTTelephone Encounter - Cornelia Israel - 10/22/2017 12:04 PM PDTYenni from [facility] Letaris. She states that Rx's for this medic ation have to go through the medication aide hub. If question's Yenni can be reached at [phone] [facility] hub: [phone] signed by Cornelia Israel at 10/22/2017 12:08 PM PDTdoc umented in this encounter Plan of Treatment Not on filedocumented as of this encounter Visit Diagnoses Not on filedocumented in this encounter"
--- OUTSIDE RECORDS SUMMARY | ~2019-10-23 | XMS | Encounter Summary ---
Demographics + + + | Address | [address] | | | [place] [address] | + + + | Home Phone | | + + + | Preferred Language | Unknown | + + + | Marital Status | Single | + + + | Restorationism Affiliation | CHR | + + + | Race | White | + + + | Ethnic Group | Not or | + + + Author + + + | Author | [facility] | + + + | Organization | [facility] | + + + | Address [...] Team Providers + +------+ + | Care Railway Signal Electrician Name | Role | Phone | + +------+ + | Bobbi Jenkins NP | PCP | | + +------+ + Encounter Details +--------+ + + + + | Date | Type | Department | Care Team | Description | +--------+ + + + + | 03/28/ | Pharmacy | Outpatient Retail | | | | 2017 | Visit | [facility] | | | | | | [address] | | | | | | [address] [place], [place] | | | | | | [address] | | | | | | [phone] | | | +--------+ + + + [...]
--- OUTSIDE RECORDS SUMMARY | ~2019-10-23 | XMS | Encounter Summary ---
Demographics + + + | Address | [address] | | | [place] [address] | + + + | Home Phone | | + + + | Preferred Language | Unknown | + + + | Marital Status | Single | + + + | Judaism Affiliation | CHR | + + + [...] Team Providers + +------+ + | Care Nanny Babysitter Name | Role | Phone | + +------+ + | Eve Daugherty MD | PCP | | + +------+ + Reason for Visit + +--------+ + | Reason | Onset | Comments | | | Date | | + +--------+ + | Medication side | 01/26/ | Ric | | effects present | 2017 | | + +--------+ + Encounter Details +--------+ + + + + | Date | Type | Department | Care Team | Description | +--------+ + + + + | 01/26/ | Telephone | Pulmonary & | Mya Hall MD | Medication side | | 2018 | | Critical Care | [address] | effects present | | | | Medicine at | [facility], | (Ric) | | | | [facility] [address] | [place] [address] | | | | | [address] | [phone] | | | | | [address] [facility] | | | | | | [place], [facility] Floor | | | | | | [place], [place] | | | | | | [address] | | | | | | [phone] | | | +--------+ + + + [...] Telephone Encounter - Mya Hall MD - 01/27/2018 12:17 PM PSTI spoke to Ms. Anderson waldrop in to her that endothelin receptor antagonists can be associated with sinus congestion howev er her other symptoms are difficult to explain with the medication. If she continues to have fever, sore throat, congestion and bronchitis she should have her primary care provider balaji carter for infection. She feels she gets fever at night, she is going to get the thermometer and check. She also feels that she has a burning sensation in her legs at night and on her skin. I has her to follow up with her primary care provider, I am not certain if she is gett ing a neuropathy or if something else is going on and further evaluation may be helpful. She is also getting a sleep study done in [place]. She may have nocturnal hypoxia.Electronica lly signed by Mya Hall MD at 01/27/2018 12:27 PM PSTTelephone Encounter - Luis E Irwin CLAIR barros - 01/26/2018 2:49 PM PSTReceived a call from the patient stating that she has been h aving sinus congestion, sore throat and bronchitis recently and was informed by her PCP that these are all side effects of Letairis and that she should make Dr. Hall aware so that our office could document the side effects. She also wanted to let us know that her PA for Letai ris on 01/19/18, she received a refill for this month and has enough medication to g et her through to the new year but wanted to make sure that we knew so we could file for a r enewal. I have sent an [email or web address] message to [facility] to request the renew this. Patient also state d that Dr. Hall had wanted her to follow up in 3-4 months from her October appointment but Dr. Hall does not have anything available in that time frame and she is currently scheduled for 05/03. She asked that I make sure this is an acceptable time frame with Dr. Hall. Advise d patient that Dr. Hall is out of the office until 02/06, but that I would get a message out to him and follow up with her once he returns and gets back to me. She was accepting of chester s. documented in this encounter Plan of Treatment Not on filedocumented as of this encounter Visit Diagnoses Not on filedocumented in this encounter"
--- OUTSIDE RECORDS SUMMARY | ~2019-10-23 | XMS | Encounter Summary ---
Demographics + + + | Address | [address] | | | [place] [address] | + + + | Home Phone | | + + + | Preferred Language | Unknown | + + + | Marital Status | Single | + + + | Confucianist Affiliation | CHR | + + + [...] Team Providers + +------+ + | Care Final Dressing Cutter Name | Role | Phone | + +------+ + | Eve Daugherty MD | PCP | | + +------+ + Encounter Details +--------+------+ + + + | Date | Type | Department | Care Team | Description | +--------+------+ + + + | 04/08/ | Lab | [facility] at [facility] | | Pulmonary | | 2018 | | [address] | | hypertension (HCC); | | | | [facility] | | Right heart failure | | | | [address], [address] floor | | due to pulmonary | | | | [place], [place] | | hypertension (HCC) | | | | [address] | | | | | | [phone] | | | +--------+------+ + + + [...] + +--------+ + + + | DRUG SCREEN 9 PANEL, | Routin | 04/08/2017 | Pulmonary | Results for this | | S/P,W/REFLEX QUANT | e | 10:57 AM | hypertension (HCC) | procedure are in the | | | | PST | Right heart failure | results section. | | | | | due to pulmonary | | | | | | hypertension (HCC) | | + +--------+ + + + | COCAINE, MET, S/P, | Routin | 04/08/2017 | Pulmonary | Results for this | | QUANT | e | 10:57 AM | hypertension (HCC) | procedure are in the | | | | PST | Right heart failure | results section. | | | | | due to pulmonary | | | | | | hypertension (HCC) | | + +--------+ + + + | NT-PRO BNP | Routin | 04/08/2017 | Pulmonary | Results for this | | | e | 10:57 AM | hypertension (HCC) | procedure are in the | | | | PST | Right heart failure | results section. | | | | | due to pulmonary | | | | | | hypertension (HCC) | | + +--------+ + + + | EULOGIO BY EFREM | Routin | 04/08/2017 | Pulmonary | Results for this | | W/REFLEX TO IFA | e | 10:57 AM | hypertension (HCC) | procedure are in the | | PATTERN & AB ID WHEN | | PST | Right heart failure | results section. | | INDICATED | | | due to pulmonary | | | | | | hypertension (HCC) | | + +--------+ + + + | CBC AND AUTO DIFF | Routin | 04/08/2017 | Pulmonary | Results for this | | | e | 10:57 AM | hypertension (HCC) | procedure are in the | | | | PST | Right heart failure | results section. | | | | | due to pulmonary | | | | | | hypertension (HCC) | | + +--------+ + + + | CBC, WITH | Routin | 04/08/2017 | Pulmonary | Results for this | | DIFFERENTIAL | e | 10:57 AM | hypertension (HCC) | procedure are in the | | | | PST | Right heart failure | results section. | | | | | due to pulmonary | | | | | | hypertension (HCC) | | + +--------+ + + + | VITAMIN D, | Routin | 04/08/2017 | Pulmonary | Results for this | | 25-HYDROXY, SERUM | e | 10:57 AM | hypertension (HCC) | procedure are in the | | | | PST | Right heart failure | results section. | | | | | due to pulmonary | | | | | | hypertension (HCC) | | + +--------+ + + + | TROPONIN I, PLASMA | Routin | 04/08/2017 | Pulmonary | Results for this | | | e | 10:57 AM | hypertension (HCC) | procedure are in the | | | | PST | | results section. | + +--------+ + + + | COMPLETE METABOLIC | Routin | 04/08/2017 | Pulmonary | Results for this | | SET | e | 10:57 AM | hypertension (HCC) | procedure are in the | | (NA,K,CL,CO2,BUN,CRE | | PST | Right heart failure | results section. | | AT,GLUC,CA,AST,ALT,B | | | due to pulmonary | | | ZENON TOTAL,ALK | | | hypertension (HCC) | | | PHOS,ALB,PROT TOTAL) | | | | | + +--------+ + + + | RHEUMATOID FACTOR, | Routin | 04/08/2017 | Pulmonary | Results for this | | SERUM | e | 10:57 AM | hypertension (HCC) | procedure are in the | | | | PST | Right heart failure | results section. | | | | | due to pulmonary | | | | | | hypertension (HCC) | | + +--------+ + + + | FERRITIN | Routin | 04/08/2017 | Pulmonary | Results for this | | | e | 10:57 AM | hypertension (HCC) | procedure are in the | | | | PST | Right heart failure | results section. | | | | | due to pulmonary | | | | | | hypertension (HCC) | | + +--------+ + + + | TSH | Routin | 04/08/2017 | Pulmonary | Results for this | | | e | 10:57 AM | hypertension (HCC) | procedure are in the | | | | PST | Right heart failure | results section. | | | | | due to pulmonary | | | | | | hypertension (HCC) | | + +--------+ + + + | IRON AND TIBC, SERUM | Routin | 04/08/2017 | Pulmonary | Results for this | | | e | 10:57 AM | hypertension (HCC) | procedure are in the | | | | PST | Right heart failure | results section. | | | | | due to pulmonary | | | | | | hypertension (HCC) | | + +--------+ + + + documented in this encounter Results MET ANTOINE S/MAXIMILIANO Banks (04/08/2017 10:57 AM PST) + + + + + + | Component | Value | Ref Range | Performed | Pathologist | | | | | At | Signature | + + + + + + | BENZOYLECGO | <20Comment: INTERPRETIVE | ng/mL | [facility] | | | NINE, S/P, | INFORMATION: Cocaine | | REG UNIV | | | QUANT | Metabolite, | | PTH - INTFC | | | | | | | | | | Serum or Plasma, | | | | | | | | | | | | Quantitative | | | | | | Methodology: | | | | | | Quantitative Gas | | | | | | Chromatography- Mass | | | | | | Spectrometry Positive | | | | | | cutoff: 20 ng/mL For | | | | | | medical purposes only; | | | | | | not valid for forensic | | | | | | use. The concentration | | | | | | value must be greater | | | | | | than or equal to the | | | | | | cutoff to be reported as | | | | | | positive. Interpretive | | | | | | questions should be | | | | | | directed to the | | | | | | laboratory. Test | | | | | | developed and | | | | | | characteristics | | | | | | determined by [facility] | | | | | | Laboratories. See | | | | | | Compliance Statement B: | | | | | | [email or web address] | | | | | | by [employer],[address] | | | | | | [address] [facility] [place] | | | | | | [address] | | | | | | [email or web address] | | | | | | Moises [...] [facility] | [address] | [place], [place] | | | UNIV PTH - INTFC | | [address] | | + + + + + CBC AND AUTO DIFF (04/08/2017 10:57 AM PST) + + + + + + | Component | Value | Ref Range | Performed | Pathologist | | | | | At | Signature | + + + + + + | WHITE CELL | 6.16 | 3.50 - 10.80 | [facility] | | | COUNT | | K/cu mm | LABORATORY | | | | | | SERVICES, | | | | | | CORE | | + + + + + + | RED CELL | 4.67 | 4.00 - 5.20 | [facility] | | | COUNT | | M/cu mm | LABORATORY | | | | | | SERVICES, | | | | | | CORE | | + + + + + + | HEMOGLOBIN | 15.0 | 12.0 - 16.0 | [facility] | | | | | g/dL | LABORATORY | | | | | | SERVICES, | | | | | | CORE | | + + + + + + | HEMATOCRIT | 43.7 | 36.0 - 46.0 % | [facility] | | | | | | LABORATORY | | | | | | SERVICES, | | | | | | CORE | | + + + + + + | MCV | 93.6 | 80.0 - 96.0 fL | [facility] | | | | | | LABORATORY | | | | | | SERVICES, | | | | | | CORE | | + + + + + + | MCHC | 34.3 | 33.0 - 35.5 | [facility] | | | | | g/dL | LABORATORY | | | | | | SERVICES, | | | | | | CORE | | + + + + + + | RDW SD | 44.8 | 35.1 - 46.3 fL | [facility] | | | | | | LABORATORY | | | | | | SERVICES, | | | | | | CORE | | + + + + + + | PLATELET | 207 | 150 - 400 K/cu | [facility] | | | COUNT | | mm | LABORATORY | | | | | | SERVICES, | | | | | | CORE | | + + + + + + | MPV | 12.0 | 9.7 - 12.3 fL | [facility] [...] + + + + | NEUTROPHIL | 57.1 | 50.0 - 70.0 % | [facility] | | | % | | | LABORATORY | | | | | | SERVICES, | | | | | | CORE | | + + + + + + | LYMPHOCYTE | 29.4 | 18.0 - 42.0 % | [facility] | | | % | | | LABORATORY | | | | | | SERVICES, | | | | | | CORE | | + + + + + + | MONOCYTE % | 8.0 | 3.5 - 9.0 % | [facility] | | | | | | LABORATORY | | | | | | SERVICES, | | | | | | CORE | | + + + + + + | EOS % | 4.5 (H) | 1.0 - 3.0 % | [facility] | | | | | | LABORATORY | | | | | | SERVICES, | | | | | | CORE | | + + + + + + | BASO % | 0.8 | 0.0 - 2.0 % | [facility] | | | | | | LABORATORY | | | | | | SERVICES, | | | | | | CORE | | + + + + + + | IG% | 0.2Comment: Increased | 0.0 - 1.0 % | [facility] | | | | immature granulocytes | | LABORATORY | | | | (IG) define a left | | SERVICES, | | | | shift. Immature | | CORE | | | | granulocytes (IG) are an | | | | | | automated count of | | | | | | metamyelocytes, | | | | | | myelocytes and | | | | | | promyelocytes. Bands | | | | | | are not included in the | | | | | | IG count. Bands are | | | | | | included in the | | | | | | neutrophil count. | | | | + + + + + + | NEUTROPHIL | 3.52 | 1.80 - 7.70 | [facility] | | | # | | K/cu mm | LABORATORY | | | | | | SERVICES, | | | | | | CORE | | + + + + + + | LYMPHOCYTE | 1.81 | 1.00 - 4.80 | [facility] | [...] + + + | EOS # | 0.28 | 0.00 - 0.50 | [facility] | | | | | K/cu mm | LABORATORY | | | | | | SERVICES, | | | | | | CORE | | + + + + + + | BASO # | 0.05 | 0.00 - 0.10 | [facility] | | | | | K/cu mm | LABORATORY | | | | | | SERVICES, | | | | | | CORE | | + + + + + + | IG# | 0.01 | 0.00 - 0.10 | [facility] | [...] Performed At | + + + | New reference ranges for IG% and IG# effective 02/28/2017. | [facility] | | Increased immature granulocytes (IG) define a left shift. Immature | LABORATORY | | granulocytes (IG) are an automated count of metamyelocytes, myelocytes | SERVICES, CORE | | and promyelocytes. Bands are not included in the IG count. Bands are | | | included in the neutrophil count. | | + + + + + + + + | Performing | Address | City/State/Zipcode | Phone Number | | Organization | | | | + + + + + | [facility] | [address] | [place] [address] | | | SERVICES, CORE | [address] | | | + + + + + TROPONIN I, PLASMA (04/08/2017 10:57 AM PST) + +-------+ + + + | Component | Value | Ref Range | Performed | Pathologist | | | | | At | Signature | + +-------+ + + + | TROPONIN I | 0.15 | <0.80 ng/mL | [facility] | | | | | [...] | + + + + + | [facility] [employer] | [address] | [place] [address] | | | SERVICES, CORE | [address] | | | + + + + + RHEUMATOID FACTOR, SERUM (04/08/2017 10:57 AM PST) + +-------+ + + + | Component | Value | Ref Range | Performed | Pathologist | | | | | At | Signature | + +-------+ + + + | RHEUMATOID | <10 | <=14 IU/mL | [facility] | | [facility] | | | [facility] | | | | | | [place] | | + +-------+ + + + + + | Specimen | + + | Blood - Blood | | (substance) | + + + + + + + | Performing | Address | City/State/Zipcode | Phone Number | | Organization | | | | + + + + + | [facility] | [address] | [place] [address] | | | [place] | | | | + + + + + EULOGIO BY EFREM W/REFLEX TO IFA PATTERN & AB ID WHEN INDICATED (04/08/2017 10:57 AM PST) + + + + + + | Component | Value | Ref Range | Performed | Pathologist | | | | | At | Signature | + + + + + + | ANTI-NUCLEA | None DetectedComment: No | None Detected | [facility] | | | R AB(EULOGIO), | antibodies to | | REG UNIV | | | IGG BY | Anti-Nuclear Antibodies | | PTH - INTFC | | | EFREM | (EULOGIO) detected. No | | | | | | further testing will be | | | | | | performed. If suspicion | | | | | | of connective tissue | | | | | | disease is strong and | | | | | | EULOGIO EIA is negative, | | | | | | consider testing for EULOGIO | | | | | | by IFA | | | | | | ([id number]).INTERPRETIVE | | | | | | INFORMATION: | | | | | | Anti-Nuclear Antibodies | | | | | | (EULOGIO), IgG by EFREM | | | | | | Anti-Nuclear Antibodies | | | | | | (EULOGIO), IgG by EFREM: EULOGIO | | | | | | specimens are screened | | | | | | using enzyme-linked | | | | | | immunosorbent assay | | | | | | (EFREM) methodology. All | | | | | | EFREM results reported | | | | | | as Detected are further | | | | | | tested by indirect | | | | | | fluorescent assay (IFA) | | | | | | using HEp-2 substrate | | | | | | with an IgG-specific | | | | | | conjugate. The EULOGIO EFREM | | | | | | screen is designed to | | | | | | detect antibodies | | | | | | against dsDNA, histone, | | | | | | SS-A (Ro), SS-B (La), | | | | | | Simmons, snRNP/Sm, Scl-70, | | | | | | Romana-1, centromere, and | | | | | | an extract of lysed | | | | | | HEp-2 cells. EULOGIO EFREM | | | | | | assays have been | | | | | | reported to have lower | | | | | | sensitivities than EULOGIO | | | | | | IFA for systemic | | | | | | autoimmune rheumatic | | | | | | diseases (SARD). | | | | | | Negative results do not | | | | | | necessarily rule our | | | | | | SARD.Performed by [place] | | | | | | [facility],[address] | | | | | | [place] [address] | | | | | | [phone]. | | | | | | [facility], Moises Retana MD, | | | | | | [...] [facility] | [address] | [place], [place] | | | UNIV PTH - INTFC | | [address] | | + + + + + VITAMIN D, 25-HYDROXY, SERUM (04/08/2017 10:57 AM PST) + +---------+ + + + | Component | Value | Ref Range | Performed | Pathologist | | | | | At | Signature | + +---------+ + + + | VITAMIN D | 9.6 (L) | 30 - 80 ng/mL | [facility] | | | 25 HYDROXY | | | LABORATORY | | | | | | SERVICES, | | | | | | CORE | | + +---------+ + + + + + | Specimen | + + | Blood - Blood | | (substance) | + + + + + | Narrative | Performed At | + + + | Reference Interval: 0-18years: Deficiency: <20 ng/mL | [facility] | | Optimum level: >or=20 ng/mL | LABORATORY | | >18years: Deficiency: <20 | SERVICES, CORE | | ng/mL Insufficiency: 20-29 ng/mL | | | Optimum Level: 30-80 ng/mL High: | | | 81-150 ng/ml Toxic: >150 ng/mL | | + + + + + + + + | Performing | Address | City/State/Zipcode | Phone Number | | Organization | | | | + + + + + | [facility] | [address] | [place] [address] | | | SERVICES, CORE | [address] | | | + + + + + IRON AND TIBC (04/08/2017 10:57 AM PST) + +-------+ + + + | Component | Value | Ref Range | Performed | Pathologist | | | | | At | Signature | + +-------+ + + + | IRON | 78 | 30 - 160 ug/dL | [facility] | | | | | | LABORATORY | | | | | | SERVICES, | | | | | | CORE | | + +-------+ + + + | IRON BIND | 328 | 240 - 450 ug/dL | [facility] | | | CAP | | | LABORATORY | | | | | | SERVICES, | | | | | | CORE | | + +-------+ + + + | % | 24 | 20 - 50 % | [facility] | | | SATURATION | | | LABORATORY | | | TRANSFERRIN | | | SERVICES, | | | , | | | CORE | | + +-------+ + + + + + | Specimen | + + | Blood - Blood | | (substance) | + + + + + + + | Performing | Address | City/State/Zipcode | Phone Number | | Organization | | | | + + + + + | [facility] | [address] | [place] [address] | | | BALTAZAR, RAN | [address] | | | + + + + + TSH (04/08/2017 10:57 AM PST) + +-------+ + + + | Component | Value | Ref Range | Performed | Pathologist | | | | | At | Signature | + +-------+ + + + | TSH | 3.31 | 0.50 - 5.07 | [facility] | [...] | + + + + + | [facility] | [address] | [place] [address] | | | RAN LEDESMA | [address] | | | + + + + + FERRITIN (04/08/2017 10:57 AM PST) + + + + + + | Component | Value | Ref Range | Performed | Pathologist | | | | | At | Signature | + + + + + + | FERRITIN | 269 (H)Comment: Male | 50 - 200 ng/mL | [facility] | | | | and Female >18 years: | | LABORATORY | | | | <20 ng/mL: | | SERVICES, | | | | Consistant with iron | | CORE | | | | deficiency 21-50 | | | | | | ng/mL: Possible | | | | | | iron deficiency 51-99 | | | | | | ng/mL: Iron | | | | | | deficiency unlikely | | | | | | unless inflammation | | | | | | present or | | | | | | patient | | | | | | >65 years of age | | | | | | 100-200 ng/mL: | | | | | | Normal, not consistent | | | | | | with iron deficiency | | | | | | >200 ng/mL: If | | | | | | transferrin saturation | | | | | | >45%, consider | | | | | | hemochromatosis | | | | + + + + + + + + | Specimen | + + | Blood - Blood | | (substance) | + + + + + + + | Performing | Address | City/State/Zipcode | Phone Number | | Organization | | | | + + + + + | [facility] | [address] | [place] [address] | | | SERVICES, CORE | [address] | | | + + + + + NT-PRO BNP (04/08/2017 10:57 AM PST) + + + + + + | Component | Value | Ref Range | Performed | Pathologist | | | | | At | Signature | + + + + + + | NT-PRO BNP | 3,141 (H) | <125 pg/mL | [facility] | [...] [facility] | [address] | [place] [address] | | | SERVICES, CORE | [address] | | | + + + + + COMPLETE METABOLIC SET (NA,K,CL,CO2,BUN,CREAT,GLUC,CA,AST,ALT,BILI TOTAL,ALK PHOS,ALB,PROT TOTAL) (04/08/2017 10:57 AM PST) + +---------+ + + + | Component | Value | Ref Range | Performed | Pathologist | | | | | At | Signature | + +---------+ + + + | GLUCOSE, | 86 | 70 - 99 mg/dL | [facility] | | | PLASMA | | | LABORATORY | | | (LAB) | | | SERVICES, | | | | | | CORE | | + +---------+ + + + | BUN, PLASMA | 18 | 6 - 20 mg/dL | [facility] | | | (LAB) | | | LABORATORY | | | | | | SERVICES, | | | | | | CORE | | + +---------+ + + + | CREATININE | 1.03 | 0.60 - 1.10 | [facility] | | | PLASMA | | mg/dL | LABORATORY | | | (LAB) | | | SERVICES, | | | | | | CORE | | + +---------+ + + + | EGFR | >60 | >60 mL/min | [facility] | | | - | | | LABORATORY | | | TURKMEN | | | SERVICES, | | | | | | CORE | | + +---------+ + + + | EGFR NON | 56 (L) | >60 mL/min | [facility] | | | -BRY | | | LABORATORY | | | RICAN | | | SERVICES, | | | | | | CORE | | + +---------+ + + + | SODIUM, | 138 | 136 - 145 | [facility] | | | PLASMA | | mmol/L | LABORATORY | | | (LAB) | | | SERVICES, | | | | | | CORE | | + +---------+ + + + | POTASSIUM, | 4.5 | 3.4 - 5.0 | [facility] | | | PLASMA | | mmol/L | LABORATORY | | | (LAB) | | | SERVICES, | | | | | | CORE | | + +---------+ + + + | CHLORIDE, | 105 | 97 - 108 mmol/L | [facility] | | | PLASMA | | | LABORATORY | | | (LAB) | | | SERVICES, | | | | | | CORE | | + +---------+ + + + | TOTAL CO2, | 25 | 21 - 32 mmol/L | [facility] | | | PLASMA | | | LABORATORY | | | (LAB) | | | SERVICES, | | | | | | CORE | | + +---------+ + + + | CALCIUM, | 9.1 | 8.6 - 10.2 | [facility] | | | PLASMA | | mg/dL | LABORATORY | | | (LAB) | | | SERVICES, | | | | | | CORE | | + +---------+ + + + | CALCIUM(ALB | 9.3 | 8.6 - 10.2 | [facility] | | | CORRECTED) | | mg/dL | LABORATORY | | | | | | SERVICES, | | | | | | CORE | | + +---------+ + + + | BILIRUBIN | 0.6 | 0.3 - 1.2 mg/dL | [facility] | | | TOTAL | | | LABORATORY | | | | | | SERVICES, | | | | | | CORE | | + +---------+ + + + | TOTAL | 7.9 | 6.4 - 8.2 g/dL | [facility] | | | PROTEIN, | | | LABORATORY | | | PLASMA | | | SERVICES, | | | (LAB) | | | CORE | | + +---------+ + + + | ALBUMIN, | 3.8 | 3.5 - 4.7 g/dL | [facility] | | | PLASMA | | | LABORATORY | | | (LAB) | | | SERVICES, | | | | | | CORE | | + +---------+ + + + | ALK PHOS | 114 (H) | 42 - 98 U/L | [facility] | | | | | | LABORATORY | | | | | | SERVICES, | | | | | | CORE | | + +---------+ + + + | AST(SGOT) | 32 | <=41 U/L | [facility] | | | | | | LABORATORY | | | | | | SERVICES, | | | | | | CORE | | + +---------+ + + + | ALT (SGPT) | 45 | <=60 U/L | [facility] | | | | | | LABORATORY | | | | | | SERVICES, | | | | | | CORE | | + +---------+ + + + | ANION GAP | 8 | 4 - 11 mmol/L | [facility] | | | | | | LABORATORY | | | | | | SERVICES, | | | | | | CORE | | + +---------+ + + + | ANION | 8 | 4 - 11 mmol/L | [facility] | | | GAP(ALB | | | LABORATORY | | | CORRECTED) | | | SERVICES, | | | [...] Performed At | + + + | Adult glucose reference range change effective 712-17. GFR is | [facility] | | estimated using the MDRD equation recommended by the National Kidney | LABORATORY | | Disease Education Program. Estimated GFR Interpretive Information: | SERVICES, CORE | | <60 mL/min/1.73 sq m Chronic Kidney Disease | | | <15 mL/min/1.73 sq m Kidney Failure Estimated | | | GFR greater that 60 mL/min/1.73 sq m is of limited clinical value. | | | The MDRD equation is not valid in the following situations: - | | | Patients under 18 years of age - Severe malnutrition or obesity - | | | Vegetarian diet - Rapidly changing kidney function | | + + + + + + + + | Performing | Address | City/State/Zipcode | Phone Number | | Organization | | | | + + + + + | [facility] | [address] | [place] [address] | | | SERVICES, CORE | [address] | | | + + + + + DRUG SCREEN 9 PANEL, S/P,W/REFLEX QUANT (04/08/2017 10:57 AM PST) + + + + + + | Component | Value | Ref Range | Performed | Pathologist | | | | | At | Signature | + + + + + + | BARBITURATE | Negative | Cutoff 75 ng/mL | [facility] | | | S, S/P, | | | REG UNIV | | | SCREEN | | | PTH - INTFC | | + + + + + + | BENZODIAZEP | Negative | Cutoff 75 ng/mL | [facility] | | | PAUL, S/P, | | | REG UNIV | | | SCREEN | | | PTH - INTFC | | + + + + + + | BUPRENORPHI | Negative | Cutoff 1 ng/mL | [facility] | | | NE, S/P, | | | REG UNIV | | | SCREEN | | | PTH - INTFC | | + + + + + + | COCAINE, | PositiveComment: If the | Cutoff 30 ng/mL | [facility] | | | S/P, SCREEN | screen is positive, then | | REG UNIV | | | | confirmation by mass | | PTH - INTFC | | | | spectrometry will be | | | | | | added. Additional | | | | | | charges will apply. | | | | | | Unconfirmed positive may | | | | | | be useful for medical | | | | | | purposes, but does not | | | | | | meet forensic standards. | | | | + + + + + + | METHADONE, | Negative | Cutoff 40 ng/mL | [facility] | | | S/P, SCREEN | | | REG UNIV | | | | | | PTH - INTFC | | + + + + + + | METHAMPHETA | Negative | Cutoff 30 ng/mL | [facility] | | | MINE, S/P, | | | REG UNIV | | | SCREEN | | | PTH - INTFC | | + + + + + + | OPIOIDS, | Negative | Cutoff 30 ng/mL | [facility] | | | SERUM OR | | | REG UNIV | | | PLASMA | | | PTH - INTFC | | + + + + + + | OXYCODONE, | Negative | Cutoff 30 ng/mL | [facility] | | | S/P, SCREEN | | | REG UNIV | | | | | | PTH - INTFC | | + + + + + + | PHENCYCLIDI | Negative | Cutoff 15 ng/mL | [facility] | | | NE, SERUM | | | REG UNIV | | | OR PLASMA | | | PTH - INTFC | | + + + + + + | CANNABINOID | Negative | Cutoff 30 ng/mL | [facility] | | | S, SERUM OR | | | REG UNIV | | | PLASMA | | | PTH - INTFC | | + + + + + + | DRUG SCREEN | See NoteComment: | | [facility] | | | COMMENTS | INTERPRETIVE | | REG UNIV | | | | INFORMATION: Drug Screen | | PTH - INTFC | | | | 9 Panel, Serum or | | | | | | | | | | | | Plasma - | | | | | | Immunoassay Screen with | | | | | | | | | | | | Reflex to | | | | | | Mass Spectrometry | | | | | | | | | | | | | | | | | | Confirmation/Quantitat | | | | | | ion 1. Methodology: | | | | | | Qualitative Immunoassay | | | | | | Screen 2. Drugs/Drug | | | | | | classes reported as | | | | | | "Positive" are | | | | | | automatically reflexed | | | | | | to mass spectrometry | | | | | | confirmation/quantitatio | | | | | | n testing. An | | | | | | immunoassay unconfirmed | | | | | | positive screen result | | | | | | may be useful for | | | | | | medical purposes but | | | | | | does not meet forensic | | | | | | standards. 3. The | | | | | | absence of expected | | | | | | drug(s) and/or drug | | | | | | metabolite(s) may | | | | | | indicate non-compliance, | | | | | | inappropriate timing of | | | | | | specimen collection | | | | | | relative to drug | | | | | | administration, poor | | | | | | drug absorption, or | | | | | | limitations of testing. | | | | | | The concentration at | | | | | | which the screening test | | | | | | can detect a drug or | | | | | | metabolite varies within | | | | | | a drug class. Specimens | | | | | | for which drugs or drug | | | | | | classes are detected by | | | | | | the screen are | | | | | | automatically reflexed | | | | | | to a second, more | | | | | | specific technology | | | | | | (mass spectrometry). The | | | | | | concentration value | | | | | | must be greater than or | | | | | | equal to the cutoff to | | | | | | be reported as positive. | | | | | | Interpretive questions | | | | | | should be directed to | | | | | | the laboratory. 4. For | | | | | | medical purposes only; | | | | | | not valid for forensic | | | | | | use. Test developed and | | | | | | characteristics | | | | | | determined by [facility] | | | | | | Laboratories. See | | | | | | Compliance Statement B: | | | | | | [email or web address] | | | | | | by [facility] [employer] [facility],[address] | [address] [place] | | | | | | [id number] | | | | | | [phone].[email or web address] [facility] | | | | | | Moises gage MD, | | | | | | Lab. 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
--- OUTSIDE RECORDS SUMMARY | ~2019-10-23 | XMS | Encounter Summary ---
Demographics + + + | Address | [address] | | | [place] [address] | + + + | Home Phone [...] Author + + + | Author | [facility] | + + + | Organization | [facility] | + + + | Address | [...] Team Providers + +------+ + | Care Product Scientist Name | Role | Phone | + +------+ + | Bobbi Jenkins NP | PCP | | + +------+ + Reason for Visit + + + | Reason | Comments | + + + | SOB - Shortness of | | | breath | | + + + Encounter Details +--------+ + + + + | Date | Type | Department | Care Team | Description | +--------+ + + + + | 06/07/ | Telephone | Pulmonary & | Beth Keith, | SOB - Shortness of | | 2019 | | Critical Care | [address] | breath | | | | Medicine at | [facility] | | | | | [facility] | [place], [place] | | | | | [address] | [address] | | | | | [facility] | [phone] | | | | | [place], [address] [place] [address] | | | | | | [place], [place] | | | | | | [address] | | | | | | [phone] | | | +--------+ + + + [...] Telephone Encounter - Beth Keith MD - 06/09/2019 4:[address] Palomino's call from the ER in [place], [place]. Ms. Barron has been experiencing shortness of breath wit h hypoxia at home for the last few weeks. She is usually only on 2L O2 with O2 sats >92% and now she is currently maintaining an O2 sat of 90% on 5L NC. Chest XR reportedly is normal. BNP is 10, patient does not appear to be volume overloaded. Rest of labs are normal, no whit e count or infectious symptoms per discussion with ER doc. At her last visit with Dr. Cassidy allen March, her RVSP was around 57 and proBNP of 78 on sildenafil and macitentan. Her silden afil was increased to 40mg TID due to slightly worsening RVSP on her echo. At this time I am concerned for worsening pulmonary hypertension vs acute PE. Dr. Palomino will obtain a CT P E and if normal will transfer her to [facility] for further workup. She will need a repeat echo on admission. elephone E maureen - Yareli Bonilla MA - 06/09/2019 3:57 PM PDTReceived a call from Dr. Palomino. He stated Rosamaria is in the Emergency Room and her Oxygen Saturation levels are at 86 while o n 4 or 5 liters. Called and relayed message to and she will be calling Dr. Palomino back. Autumn giron signed by Yareli Bonilla MA at 06/09/2019 4:08 PM PDTTelephone Encounter - Jay Mcmillan - 06/08/2019 10:15 AM PDTGema was sick for a month previously and now for the las t 3 weeks her saturation levels have plummeted. Her saturation levels are 85-89% on 5L. Tonny rodriguez is wearing her oxygen all the time and is not able to get around very well due to SOB.Elec tronically signed by Saniya Mcmillan at 06/08/2019 10:25 AM PDTdocumented in this encounter Plan of Treatment Not on filedocumented as of this encounter Visit Diagnoses Not on filedocumented in this encounter"
--- OUTSIDE RECORDS SUMMARY | ~2019-10-23 | XMS | Encounter Summary ---
Demographics + + + | Address | [address] | | | [place] [address] | + + + | Home Phone | | + + + | Preferred Language | Unknown | + + + | Marital Status | Single | + + + | Restorationist Affiliation | CHR | + + + | Race | White | + + + | Ethnic Group | Not or | + + + Author + + + | Author | [facility] | + + + | Organization | [facility] | + + + | Address [...] Team Providers + +------+ + | Care Sericulture Teacher Name | Role | Phone | + +------+ + | Eve Daughetry MD | PCP | | + +------+ + Encounter Details +--------+ + + + + | Date | Type | Department | Care Team | Description | +--------+ + + + + | 04/15/ | Telephone | Pulmonary & | Mya Hall MD | | | 2018 | | Critical Care | [address] | | | | | Medicine at [facility], | | | | | [facility] | [place] [address] | | | | | [address] | [phone] | | | | | [facility] | | | | | | [place], [address] | | | | | | [place], [place] | | | | | | [address] | | | | | | [phone] | | | +--------+ + + + [...] Telephone Encounter - Mindi Irwin MA - 04/16/2017 3:34 PM PSTPatient called back an d received an answer before I was able to return her call today. ----- Message ----- From: Mya Hall MD Sent: 04/15/2017 8:08 PM To: Mindi Irwin MA Yes it is okay for patient to have cortisone shots in her shoulder. elephone Encounter - Mindi Irwin MA - 04/15/2017 3:02 PM PSTPatient is calling in because her PCP wants to give her cortisone s hots for her shoulder and she would like to confirm with Dr. Hall first that this is okay. P atient is scheduled for the shot next Wednesday. Will call patient back upon receiving answer from Dr. Hall. docume nted in this encounter Plan of Treatment Not on filedocumented as of this encounter Visit Diagnoses Not on filedocumented in this encounter"
--- OUTSIDE RECORDS SUMMARY | ~2019-10-23 | XMS | Encounter Summary ---
Demographics + + + | Address | [address] | | | [place] [address] | + + + | Home Phone [...] Author + + + | Author | [facility] | + + + | Organization | [facility] | + + + | Address [...] Team Providers + +------+ + | Care Detector Car Operator Name | Role | Phone | + +------+ + | Bobbi Jenkins NP | PCP | | + +------+ + Encounter Details +--------+ + + + + | Date | Type | Department | Care Team | Description | +--------+ + + + + | 06/21/ | Telephone | Pulmonary & | Beth Keith, | | | 2020 | | Critical Care | [address] | | | | | Medicine at | [facility] | | | | | [facility] | [place], [place] | | | | | [address] | [address] | | | | | [facility] | [phone] | | | | | [address] | | | | | | [place], [place] | | | | | | [address] | | | | | | [phone] | | | +--------+ + + + [...] Telephone Encounter - Gianna Worthy MA - 06/22/2019 9:52 AM PDTSent refill request (in separate encounter) to Dr. Keith. elephone Encounter - Sainya Mcmillan - 06/22/2019 9:[facility] and left a message with notification that patient's ambrisentan needs to be refilled soon. ÍNEZdoanastasia reed in this encounter Plan of Treatment Not on filedocumented as of this encounter Visit Diagnoses Not on filedocumented in this encounter"
--- OUTSIDE RECORDS SUMMARY | ~2019-10-23 | XMS | Encounter Summary ---
Demographics + + + | Address | [address] | | | [place] [address] | + + + | Home Phone [...] Author + + + | Author | [facility] | + + + | Organization | [facility] | + + + | Address | [...] Providers + +------+ + | Care Senior Power Scheduler Name | Role | Phone | + +------+ + | Bobbi Jenkins NP | PCP | | + +------+ + Encounter Details +--------+ + + + + | Date | Type | Department | Care Team | Description | +--------+ + + + + | 03/22/ | Procedure | Diagnostic Imaging | | | | 2018 | Pass | Services at [facility] | | | | | | [address] | | | | | | Aura SPEAR | | | | | | [facility], [address] [place] [address] | | | | | | [place], [place] | | | | | | [address] | | | | | | [phone] | | | +--------+ + + + [...]
--- OUTSIDE RECORDS SUMMARY | ~2019-10-23 | XMS | Encounter Summary ---
Demographics + + + | Address | [address] | | | [place] [address] | + + + | Home Phone [...] + + + | Author | [facility] | + + + | Organization | [facility] | + + + | Address [...] Team Providers + +------+ + | Care Documentation Writer Name | Role | Phone | + +------+ + | Eve Daugherty MD | PCP | | + +------+ + Reason for Visit + +--------+ + | Reason | Onset | Comments | | | Date | | + +--------+ + | Chest pain | 06/03/ | | | | 2017 | | + +--------+ + Encounter Details +--------+ + + + + | Date | Type | Department | Care Team | Description | +--------+ + + + + | 06/03/ | Telephone | Pulmonary & | Rosangela Hall MD | Chest pain | | 2018 | | Critical Care | [address] | | | | | Medicine at | [address] [place], | | | | | [facility] | [place] [address] | | | | | [address] | [phone] | | | | | [address] [facility] | | | | | | [facility], [facility] Floor | | | | | | [place], [place] | | | | | | [address] | | | | | | [phone] | | | +--------+ + + + [...] this encounter Miscellaneous Notes Telephone Encounter - Rosangela Hall MD - 06/03/2017 2:25 PM PDTI received a call from [facility] ED that patient presented with Chest Pain, NT Pro BNP and Troponin are not increase d. Plan is to admit patient to hospital to check troponin, give IV diuretics and also check urine drug screen. Patient will be admitted overnight. They might consider D-dimer and LE do pplers to evaluate for LE DVT. Patient has had multiple evaluations in there facility for pu lmonary embolism. If patient improves will be discharged and can call [phone] for appoi ntment on 06-08-17. I have asked staff to schedule already. If patient does not improve may ne ed to be transferred to [facility] for further work up. The PA at [facility] agreed with plan o f management. ROSANGELA HALL MD (VASILE) [facility] [facility] | [facility] [address] | Mailcode: [id number] | [facility] [id number] | documented in this encoun ter Plan of Treatment Not on filedocumented as of this encounter Visit Diagnoses Not on filedocumented in this encounter"
--- OUTSIDE RECORDS SUMMARY | ~2019-10-23 | XMS | Encounter Summary ---
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 loss of balance or vertigo. Skin: No recent rashes, sores, or skin changes. Psychological: No anxiety or depression. Heme/Lymphatic: The patient denies abnormal bruising, abnormal bleeding or enlarged lymph n odes. Sleep: Patient reports no snoring, witnessed apneas, daytime somnolence, unrefreshing sleep , or naps Physical Exam: BP 125/86 | Pulse 85 | Temp (Src) 36.2 C (97.2 F) (Oral) | RR 18 | Ht 1.66 m (5' 5.35") | Wt 76.2 kg (168 lb) | SpO2 95% | BMI 27.65 kg/(m^2) General: No acute distress, obese MAURI: Normocephalic, PERRLA, EOMI, external ears without lesions. Nares: No evidence of nasal erythema, polyps, purulence, congestion or septal deviation. Throat: No erythema, exudate, or tonsillar enlargement Neck: No evidence of elevated jugular veins or lymphadenopathy. JVP evaluated in sitting po sition. Lungs: Clear to auscultation bilaterally, no wheezes, rhonchi or crackles Cardiac:regular rate and rhythm systolic murmur 2/6 heard best over left lower sternal anna rder. Abdomen: Normal abdominal bowel sounds; no evidence of hepatosplenomegaly. Non-tender, non -distended. Extremities: minimal edema Musculoskeletal: No obvious joint deformities noted. Neurologic: Exam grossly non-focal. Skin: No evidence of rash or skin changes. Lymph nodes: No other lymphadenopathy detected. Recent Labs 03/22/17 0440 03/26/17 0527 03/27/17 0625 04/08/17 1057 NA 135* < > 139 138 138 K 4.5 < > 4.6 4.6 4.5 CL 102 < > 110* 108 105 BICARB 23 < > 23 24 25 BUN 27* < > 24* 24* 18 CR 1.02 < > 0.77 0.81 1.03 GLU 109* < > 106* 97 86 CA 9.0 < > 8.5* 8.6 9.1 AST 63* -- -- 62* 32 ALT 44 -- -- 63* 45 AP 112* -- -- 110* 114* TBILI 1.5* -- -- 1.1 0.6 TP 8.0 -- -- 7.3 7.9 ALB 3.4* -- -- 3.2* 3.8 < > = values in this interval not displayed. Lab Results Component Value Date NTPROBNP 3,141 04/08/2017 NTPROBNP 2,135 03/18/2017 Lab Results Component Value Date HEPAABTOT Negative 03/18/2017 HEPBCORE Not Detected 03/18/2017 HBSAG Not Detected 03/18/2017 HEPCAB Not Detected 03/18/2017 Lab Results Component Value Date HIV Negative 03/18/2017 Lab Results Component Value Date RF <10 04/08/2017 Lab Results Component Value Date HYP48LT 0 03/23/2017 Lab Results Component Value Date WBC 6.16 04/08/2017 RBC 4.67 04/08/2017 HB 15.0 04/08/2017 HCT 43.7 04/08/2017 MCV 93.6 04/08/2017 MCHC 34.3 04/08/2017 RDW 44.8 04/08/2017 PLT 207 04/08/2017 MPV 12.0 04/08/2017 NRBCPERC 0.0 04/08/2017 NRBCABS 0.00 04/08/2017 NEUTROPERC 57.1 04/08/2017 LYMPHPERC 29.4 04/08/2017 MONOPERC 8.0 04/08/2017 EOSPERC 4.5 (H) 04/08/2017 BASOPERC 0.8 04/08/2017 IMGRANPERC 0.2 04/08/2017 NEUTROPHILCO 3.52 04/08/2017 LYMPHSABS 1.81 04/08/2017 MONOCYTECO 0.49 04/08/2017 EOSCO 0.28 04/08/2017 BASOPHILCO 0.05 04/08/2017 IMGRANABS 0.01 04/08/2017 Lab Results Component Value Date IRON 78 04/08/2017 IRONBINDCAP 328 04/08/2017 SATTRANSFERR 24 04/08/2017 FERRITIN 269 (H) 04/08/2017 Lab Results Component Value Date [id number] 9.6 04/08/2017 CXR No results found for: CXR X-ray Chest 1 View Result Date: 03/18/2017 EXAM: CHEST 1 VIEW HISTORY: Shortness of breath COMPARISON: Outside chest radiograph and CT 03/12/17 FINDINGS: Cardiomegaly unchanged. Mediastinal contours are stable. There is no pulmonary edema. Th e lungs are clear. No definite pleural effusion. There is no pneumothorax. IMPRESSION: Clear lungs. Unchanged cardiomegaly. I have personally reviewed the images and, if necessary, edited the report. I agree with t he report as now presented. CT scan: Cta Chest Pulmonary Embolism W Contrast Result Date: 03/22/2017 EXAM: CTA CHEST PULMONARY EMBOLISM 03/22/17 16:39:23 HISTORY: Acute chest pain. Pulmonary embolism suspected. COMPARISON: Chest radiograph 03/18/17, outside chest CTA 03/12/17 TECHNIQUE: Following uneventful administration of 80 ml intravenous contrast helical scann ing was obtained of the chest and reviewed in soft tissue and lung algorithm. Oblique MIP im ages were also generated and reviewed. FINDINGS: Opacification is adequate for assessment of pulmonary artery emboli. There is no filling defect in the pulmonary arteries to the proximal subsegmental level. there is a 4 mm nodule along the superior aspect of the left major fissure that likely rep resents an intrapulmonary lymph node. Aside from mild left lower lobe and left upper lobe li ngular atelectasis, the lungs are clear. There is no effusion or pneumothorax. The airways a re clear. The visible thyroid is unremarkable. Aortic arch branching is conventional. There is severe right ventricular and right atrial enlargement. There is severe central pulmonary arterial enlargement. There is no pericardial effusion. There is no mediastinal, hilar, or axillary a denopathy. There is no incidental intracardiac or aortic filling defect. Visible portions of liver, gallbladder, spleen, pancreas, adrenals, kidneys, and bowel are unremarkable. There is a 17 x 17 mm nodule in the central left breast. There is no acute fracture or foca l osseous lesion. IMPRESSION: No pulmonary embolus. Severe central pulmonary arterial, right ventricular, and right atrial enlargement consiste nt with chronic pulmonary hypertension and right heart failure. Incidental 17 mm nodule in the central left breast. Further evaluation with mammography on a non-urgent basis is recommended. I have personally reviewed the images and, if necessary, edited the report. I agree with t he report as now presented. 6 Minute Walk Test Pul 6 Min Walk 04/08/2017 DISTANCE WALKED-METERS 296 . PFT's Spirometry FVC Pre FVC Pre % FEV1 PRE FEV1 Pre % FEV1/FVC Pre FEV1/FVC PRE (% REF) 03/24/17 1606 3.17 89 2.49 89 79 98 PFT's Spirometry AWH05-43% PRE XHX91-35% PRE (%REF) PEF PRE PEF PRE (%REF) FIF 50% PRE FIF 50% PRE (%REF) 03/24/17 1606 2.14 80 6.36 94 5.97 120 PFT's Lung Volumes RV/TLC Pre RV/TLC % ERV Pre DLCO Adj Pre DLCO Adj % 6 Minute Walk 04/08/17 0825 296 03/24/17 1606 19.76 87 EKG: Results for orders placed or performed in visit on 04/08/17 12 LEAD ECG Result Value Ref Range VENTRICULAR RATE 80 bpm ATRIAL RATE 80 ms P-R INTERVAL 139 ms P AXIS 54 deg QRS DURATION 107 ms QT 384 ms QTCB 443 ms R AXIS -8 deg T AXIS 61 deg ECG IMPRESSION Sinus rhythm ECG IMPRESSION Probable left atrial enlargement ECG IMPRESSION Right axis deviation ECG IMPRESSION Nonspecific T abnrm, anterolateral leads- ABNORMAL ECG - ECG IMPRESSION Electronically signed by: MARY SAM 04-08-2017 21:10:17 Lab Results Component Value Date TROPONIN 0.15 04/08/2017 RH 03/22/2017 SUMMARY: 8. Normal resting RA pressure 9. Moderately elevated RV pressure 10. Procedure terminated early due to possible pulmonary embolism. CT/PE protocol 03/22/2017 No pulmonary embolus. Severe central pulmonary arterial, right ventricular, and right atrial enlargement consiste nt with chronic pulmonary hypertension and right heart failure. Incidental 17 mm nodule in the central left breast. Further evaluation with mammography on a non-urgent basis is recommended. Echocardiogram 03/22/2017 1. The left ventricular cavity size is normal. 2. The LV function is normal. Visually estimated left ventricular ejection fraction is 60 - 65%. 3. There appears to be a large mobile echodensity located within the main and right pulmonary arteries, suspicious for saddle pulmonary embolus. 4. RV cavity size is severely enlarged. RV global systolic function is moderately reduced. The estimated right ventricular systolic pressure is severely elevated (RVSP = 72.5 mmHg). 5. Moderate tricuspid regurgitation. 6. Severely enlarged right atrium. Left atrium by comparison is likely underfilled. 7. RV findings, pressure, and visualization of the pulmonary arteries are all consistent with pulmonary embolism. Suggest alternative imaging for confirmation. 8. There are no prior exams available for comparison. BLE dopplers 03/22/2017 Conclusions: A normal venous examination of the bilateral lower extremities. No venous thro mbosis was detected. Echocardiogram: Lab Results Component Value Date RVSP 72 03/22/2017 RHC 03/25/2017 Conclusions At room air: 1. Elevated right sided resting filling pressure and normal left sided resting filling pres sures 2. Right ventricular and pulmonary pressures demonstrate pulsus alternans 3. Severely elevated pulmonary pressures in setting of normal pulmonary capillary wedge pre ssure and severely elevated pulmonary vascular resistance, consistent with primary pulmonary hypertension 4. Decreasedcardiac output and index by thermodilution and assumed Marleny. 5. Elevated systemic vascular resistance 6. Not significant response to vasodilator therapy as detailed below 7. Noted small nonocclusive clot attached to the anterior wall of right IJabnormalities a t the site of last access At 5ppm of Moris: 1. No change in right atrial pressure 2. No change in pulmonary pressures At 10ppm of Moris: 1. No change in right atrial pressure 2. Small decrease in pulmonary pressures 3. Increase in pulmonary artery saturation and cardiac output by Marleny 4. Small decrease in pulmonary vascular resistance At 20ppm of Moris: 1. No change in right atrial pressure 2. No change in pulmonary pressures At 40ppm of Moris: 1. Small decrease in right atrial pressure 2. Decrease in pulmonary pressures and pulmonary vascular resistance 3. Small decrease in pulmonary capillary wedge pressure with decrease in cardiac output by Marleny and thermodilution Findings at room air: Mean RA:10mmHg, A wave of 11 mmHg, V wave of 14 mmHg with significant res piratory variation and prominent y-descent RV:73/5/8mmHg with noted pulsus alternans PA:71/33mmHg Mean PA:46mmHg Wedge:10mmHg, with a A wave of 18 and prominent x-descent Blood pressure: 120/87mmHg, MAP 100mmHg Heart [id number] Pulmonary arterial saturation: 59% Hemoglobin:16.8gm/dl Marleny CO:2.26L/min Marleny CI:1.24L/min/m2 [id number] (Using Marleny CO) [id number](Using Marleny CO) Findings at 5ppm of Moris: Mean RA:11mmHg, A wave of 17 mmHg, V wave of 15 mmHg with significant res piratory variation and prominent y-descent PA:74/32mmHg Mean PA:46mmHg Findings at 10ppm of Moris: Mean RA:11mmHg, A wave of 17 mmHg, V wave of 14 mmHg with significant res piratory variation and prominent y-descent PA:70/27mmHg Mean PA:41mmHg Wedge:9mmHg, with a A wave of 13 and prominent x-descent Marleny CO:2.87L/min Marleny CI:1.57L/min/m2 PVR:11 HAN (Using Marleny CO) Findings at 20ppm of Moris: Mean RA:11mmHg, A wave of 17 mmHg, V wave of 13 mmHg with significant res piratory variation and prominent y-descent PA:69/31mmHg Mean PA:44mmHg Findings at 40ppm of Moris: Mean RA:9mmHg, A wave of 16 mmHg, V wave of 11 mmHg with significant resp iratory variation and prominent y-descent PA:66/24mmHg Mean PA:38mmHg Wedge:9mmHg, with a A wave of 13 and prominent x-descent TD CO:2.8L/min TD CI:1.53L/min/m2 PVR:10 HAN (Using TD CO) Marleny CO:2.49L/min Marleny CI:1.36L/min/m2 PVR:12 HAN (Using Marleny CO) documented in this enco unter Plan of Treatment + +------+--------+ + + | Name | Type | Priori | Associated Diagnoses | Order Schedule | | | | ty | | | + +------+--------+ + + | TRANSTHORACIC | ECG | Routin | Pulmonary | Ordered: 04/08/2017 | | ECHOCARDIOGRAM, | | e | hypertension (HCC) | | | ADULT | | | | | + +------+--------+ + + documented as of this encounter Procedures + +--------+ + + + | Procedure Name | Priori | Date/Time | Associated Diagnosis | Comments | | | ty | | | | + +--------+ + + + | 12 LEAD ECG | Routin | 04/08/2017 | Pulmonary | Results for this | | | e | 11:01 AM | hypertension (HCC) | procedure are [...] + + + | PULMONARY | Site: [facility] and | | [facility] | | | INTERPRETAT | [facility], [address] | [address] | | [address] | [address] [facility] | | DIAGNOSTICS | | | | [address],[place], [place], | | - | | | | [phone]: [id number] | | PULMONARY | | | | Name: GEMA BARRON | | FUNCTION | | | | SVisit Date: 10/12/2017 | | | | | | Second ID: | | | | | | [id number]: | | | | | | Stephen ShayAge: 52 | | | | | | [...] + + + + + | [facility] | [address] | [facility] [place] | | | DIAGNOSTICS - | [address] | [address] | | | PULMONARY FUNCTION | | | | + + + + + 12 LEAD ECG (04/08/2017 11:01 AM PST) + + + + + + | Component | Value | Ref Range | Performed | Pathologist | | | | | At | Signature | + + + + + + | VENTRICULAR | 80 | bpm | [facility] | | | RATE | | | OF | | | | | | CARDIOLOGY | | + + + + + + | ATRIAL RATE | 80 | ms | [facility] | | | | | | OF | | | | | | CARDIOLOGY | | + + + + + + | P-R | 139 | ms | [facility] | | | INTERVAL | | | OF | | | | | | CARDIOLOGY | | + + + + + + | P AXIS | 54 | deg | [facility] | | | | | | OF | | | | | | CARDIOLOGY | | + + + + + + | QRS | 107 | ms | [facility] | | | DURATION | | | OF | | | | | | CARDIOLOGY | | + + + + + + | QT | 384 | ms | [facility] | | | | | | OF | | | | | | CARDIOLOGY | | + + + + + + | DAILY-JAYDON | 443 | ms | [facility] | | | | | | OF | | | | | | CARDIOLOGY | | + + + + + + | R AXIS | -8 | deg | [facility] | | | | | | OF | | | | | | CARDIOLOGY | | + + + + + + | T AXIS | 61 | deg | [facility] | | | | | | OF | | | | | | CARDIOLOGY | | + + + + + + | ECG | Sinus rhythm | | [facility] | | | IMPRESSION | | | OF | | | | | | CARDIOLOGY | | + + + + + + | ECG | Probable left atrial | | [facility] | | | IMPRESSION | enlargement | | OF | | | | | | CARDIOLOGY | | + + + + + + | ECG | Right axis deviation | | [facility] | | | IMPRESSION | | | OF | | | | | | CARDIOLOGY | | + + + + + + | ECG | Nonspecific T abnrm, | | [facility] | | | IMPRESSION | anterolateral leads- | | OF | | | | ABNORMAL ECG - | | CARDIOLOGY | | + + + + + + | ECG | Electronically signed | | [facility] | | | IMPRESSION | by: MARY SAM | | OF | | | | 04-08-2017 21:10:17 | | CARDIOLOGY | | + + [...] + + + + + | [facility] | [address] | [place] | | | CARDIOLOGY | [address] | [address] | | + + + + + [...] + + + + + | [facility] | [address] | [place] [address] | | | SERVICES, CORE | AD [...] + | [facility] - | [address] | [place] [address] | | | [facility] | | | | + + + [...] IFA | | | | | | ().INTERPRETIVE | | | | | | INFORMATION: [...] | | | | | SARD.Performed by [facility] | | | | | | [facility],[address] | | | | | | [place], [facility] [place] [address] | | | | | | [phone]. | | | | | | Moises [...] [facility] | [address] | [place], [place] | | | [facility] | | [address] | | + + + + + [...] | + + + + + | [facility] | [address] | [place] [address] | | | SERVICES, CORE | PARK [...] | + + + + + | [facility] | [address] | [place] [address] | | | SERVICES, CORE | PARK [...] utilizing a similar TSH assay, and | [facility] | | should be interpreted with caution. | | + + + + + + + + | Performing | Address | City/State/Zipcode | Phone Number | | Organization | | | | + + + + + | [facility] | [address] [facility] [facility] | [place] [address] | | | [place] | AD [...] + + + + + | [facility] | [address] | [place] [address] | | | SERVICES, CORE | AD [...] | + + + + + | [facility] | [address] | [place] [address] | | | SERVICES, CORE | AD [...] | | | LABORATORY | | | [facility] | | | SERVICES, | | | [...] | Adult glucose reference range change effective 7-12-17. GFR is | [facility] | | estimated [...] | + + + + + | [facility] | [address] | [place] [address] | | | SERVICES, CORE | AD [...] | | | | | determined by [facility] | | | | | | Laboratories. See | | | | | | Compliance Statement B: | | | | | | [employer]/CSPerformed | | | | | | by [email or web address] | | | | | [address] [place] | | | | | | [id number] | | | | | | [phone]. 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
--- OUTSIDE RECORDS SUMMARY | ~2019-10-23 | XMS | Encounter Summary ---
Demographics + + + | Address | [address] | | | [place] [address] | + + + | Home Phone | | + + + | Preferred Language | Unknown | + + + | Marital Status | Single | + + + | Mandaeism Affiliation | CHR | + + + [...] Team Providers + +------+ + | Care Erp Analyst Name | Role | Phone | + [...] Description | +--------+--------+ + + + | 01/01/ | Refill | Pulmonary & | Mya Hall MD | Refill Request | | 2019 | | Critical Care | [address] | | | | | Medicine at | [address] [place], | | | | | [facility] | [place] [address] | | | | | [address] | [phone] | | | | | [facility] | | | | | | [facility], 3rd Floor | | | | | | [place], [place] | | | | | | [address] | | | | | | [phone] | | | +--------+--------+ + + + [...] this encounter Miscellaneous Notes Telephone Encounter - Mark Murphy MA - 01/03/2019 10:20 AM PSTFormatting of this note mi ght be different from the original. REFILL REQUEST DATE: January 03, 2019 PATIENT: Gema Barron [id number] Received refill request from the pharmacy. Reviewed chart, medication current on med list. Rx pended and routed to the provider for approval or denial. Requested Prescriptions Pending Prescriptions Disp Refills SILDENAFIL 20 mg oral tablet [Pharmacy Med Name: SILDENAFIL 20 MG TABLET] 720 tablet 0 Sig: take 1 tablet by mouth three times a day LAST APPOINTMENT: 11/25/18 at 3:36 pm NEXT APPOINTMENT: No future appointments scheduled in Pulmonary Disease. Patient's pharmacy has been verified: Yes [facility].[address] [place] [phone] documented in this enco unter Plan of Treatment Not on filedocumented as of this encounter Visit Diagnoses Not on filedocumented in this encounter"
--- OUTSIDE RECORDS SUMMARY | ~2019-10-23 | XMS | Encounter Summary ---
Demographics + + + | Address | [address] | | | [place] [address] | + + + | Home Phone | | + + + | Preferred Language | Unknown | + + + | Marital Status | Single | + + + | Taoist Affiliation | CHR | + + + | Race | White | + + + | Ethnic Group | Not or | + + + Author + + + | Author | [facility] | + + + | Organization | [facility] | + + + | [...] Team Providers + +------+ + | Care Fruit Picker Machine Operator Name | Role | Phone | + +------+ + | Eve Daugherty MD | PCP | | + +------+ + Reason for Visit + +--------+ + | Reason | Onset | Comments | | | Date | | + +--------+ + | Medication Question | 11/04/ | | | | 2018 | | + +--------+ + Encounter Details +--------+ + + + + | Date | Type | Department | Care Team | Description | +--------+ + + + + | 11/04/ | Telephone | Pulmonary & | Rosangela Hall MD | Medication Question | | 2017 | | Critical Care | [address] | | | | | Medicine at | [facility], | | | | | [facility] [place] | [place] [address] | | | | | [address] | [phone] | | | | | [facility] | | | | | | [place], [address] [place] [address] | | | | | | [place], [place] | | | | | | [address] | | | | | | [phone] | | | +--------+ + + + [...] Telephone Encounter - Mindi Irwin MA - 11/16/2017 11:[address] Hall's mes farida to the patient. She was satisfied with the answer, gave patient the phone number for [facility] to call and schedule paracentesis. From: Rosangela Hall MD Sent: 11/15/2017 1:32 PM To: Mindi Irwin MA Procedure is safe for patient to have, I am hoping once we start Letaris she will improve. It will have more impact than IV diuresis. Akram elephone Enco unter - Mindi Irwin MA - 11/15/2017 9:58 AM PDTReceived a call from the patient to merlyn delaney up on discussion regarding labs prior to paracentesis. Relayed Dr. Hall's message abebeo w. Patient stated that she had an IV diuresis earlier in the year and questioned why Dr. Aaron allen wanted her to have a paracentesis instead. She is wondering if it is because he wants to g lalito her kidneys a break as last time she had it done she had to go to two separate facilitie s and both had a hard time. Patient is concerned and just wants to make sure that her heart will "hold up" to have the paracentesis. She stated that her father in August from a similar procedure and his heart was in better shape than hers. She would just like to alexy e sure that the paracentesis is a safe procedure given that her heart is only at about 20%. Routing to Dr. Hall to advise and will follow up with the patient after receiving his respon se. From: Rosangela Hall MD Sent: 11/14/2017 11:19 PM To: Mindi Irwin MA Pateint will need laboratory testing atleast the day of the procedure if not before so that the provider doing the procedure can determine if procedure is needed. Rosangela From: Rosangela Hall MD Sent: 11/14/2017 11:21 PM To: Mindi Irwin MA * if procedure can be performed safely. We have already determined it is neededElectronical ly signed by Mindi Irwin MA at 11/15/2017 10:06 AM PDTTelephone Encounter - [facility] IrwincindyCLAIR rodriguez - 11/12/2017 2:32 PM PDTCalled and spoke with the patient in regards to paracen tesis and she would like to have this performed at [facility] in [facility]. Have faxed order to them at [phone], lab fax [phone]. Patient would like to know how s oon prior to paracentesis she needs to have the labs drawn. Informed her I would check in [facility] Dr. Hall an follow up with her after receiving his response. ddendum Note - Rosangela Hall MD - 11/09/2017 7:5 8 PM PDT Addended by: ROSANGELA HALL MD on: 11/09/2017 07:58 PM Modules accepted: Orders elephone Encounter - Rosangela Reyes MD - 11/08/2017 6:34 PM PDTI spoke to the patient on November 07, 2017. We di scussed the fact that the trial is no longer enrolling and that she should contact her speci alty pharmacy, [facility] to arrange for her getting the ambrisentan. Since then patient has called again indicating that she has had increasing abdominal fluid and needs in ascitic tap. I will have that arranged through the [facility] radiology service. ROSANGELA HALL MD (VASILE) [facility] | [facility] [address] | Mailcode: UHN-[id number] | [facility] [address] | elephone Encounter - Mindi Oquendo MA - 11/08/2017 2:33 PM PDTReceived a call from the patient stating that joie rodriguez is not feeling well at all and complains of increased fatigue in the last two days. Patricia quintanilla is reporting weight gain and fluid in abdominal area, reports that when she was discharged from the hospital she was 150 pounds, she is now up to 185 pounds and stated that she feels . Patient stated that ascites has been progressively getting worse since she was di scharge from the hospital. Reports that she has been taking her torsemide but that it has no t done anything for her. Patient would like to know what Dr. Hall wants her to do.Electronic ally signed by Mindi Irwin MA at 11/08/2017 3:00 PM PDTTelephone Encounter - Mindi Irwin MA - 11/04/2017 4:19 PM PDTPatient called in with questions regarding her spiron olactone and possible interaction with Deltasone that was prescribed by another provider. Raymond sheth stated that she does not like the spironolactone and that since taking it her post men opausal bleeding has worsened. She was recently started on deltasone 60mg daily by an outsny e provider, she has taken for 5 days but then stopped because she read that there can be con traindications with multiple steroids, patient reports that she has developed a rash on the top of her head that causes her discomfort and is wondering if this is a possible side effec t from being on the spironolactone and deltasone simultaneously. Patient also reports a toot amie that has been going on fr about 4 days and multiple abscess teeth, she stated that las t time she was admitted they were going to pull them but then she was discharged. She said t he abscess and tooth ache is now bothering her again and she wants to know if this is likely to have any affect on her condition. Patient was also recently prescribed Letairis, which w as approved by insurance through 01/20/18 but she is needing to complete enrollment forms fo r the senior manufacturing engineer before the pharmacy is able to provide her with the medication. When I me ntioned this to the patient she stated that Dr. Hall didn't want her to start this and had s aid that Alma Delia would be contacting her first. Patient had lost her phone and recently got a new one with a new phone number which is now recorded in her chart which is why myself and p ossesthela Alma Delia have been unable to reach her. Informed patient that I would check with Dr. Isaías gupta so he could advise on the medication questions as well as the abscess tooth and whether t his will affect her. Also asked that I check with him in regards to starting the Letairis. R outing to Dr. Hall to advise and will follow up with the patient appropriately.Electronicall y signed by Mindi Irwin MA at 11/04/2017 4:26 PM PDTdocumented in this encounter Plan of Treatment + + +--------+ + + | Name | Type | Priori | Associated Diagnoses | Order Schedule | | | | ty | | | + + +--------+ + + | CELL COUNT DIFF, | Lab | Routin | Pulmonary | Ordered: 11/09/2017 | | BODY FLUID | | e | hypertension (HCC) | | + + +--------+ + + | GLUCOSE, BODY FLUIDS | Lab | Routin | Pulmonary | Ordered: 11/09/2017 | | | | e | hypertension (HCC) | | + + +--------+ + + | LDH ENZYME LEVEL, | Lab | Routin | Pulmonary | Ordered: 11/09/2017 | | BODY FLUID | | e | hypertension (HCC) | | + + +--------+ + + | PROTEIN, BODY FLUIDS | Lab | Routin | Pulmonary | Ordered: 11/09/2017 | | | | e | hypertension (HCC) | | + + +--------+ + + | CELL COUNT, BODY FL | Lab - | Routin | Pulmonary | Ordered: 11/09/2017 | | | [facility] | e | hypertension (HCC) | | | | Performable | | | | | | s | | | | + + +--------+ + + documented as of this encounter Results US ABDOMEN LIMITED (11/22/2017 10:28 AM PDT) + + | Specimen | + + | | + + + + + | Narrative | Performed At | + + + | EXAM: US Abdomen Limited HISTORY: Abd swelling, ascites | [facility] | | suspected. Right heart failure with ascites - Female patient (52 years | RADIOLOGY VOICE | | old) COMPARISON: None available TECHNIQUE: Limited abdominal | RECOGNITION 2 | | ultrasound performed of the abdomen for the assessment of ascites. | | | FINDINGS: Sonographic evaluation of the 4 abdominal quadrants, and | | | of the pelvis demonstrate no definite free fluid. Limited views of the | | | liver, spleen and urinary bladder demonstrate no focal abnormality. | | | IMPRESSION: No drainable ascites. I have personally | | | reviewed the images and, if necessary, edited the report. I agree with | | | the report as now presented. Final signature: Radha Case | | | 11/22/2017 10:47 AM Preliminary: Grey Hendricks MD | | | Dictation initiated: Grey Hendricks MD 11/22/2017 10:37 AM | | + + + + + | Procedure Note | + + | Service Account, Radiant Res In Interface - 11/22/2017 10:48 AM PDT EXAM: US Abdomen | | Limited HISTORY: Abd swelling, ascites suspected. Right heart failure with ascites - | | Female patient (52 years old) COMPARISON: None available TECHNIQUE: Limited abdominal | | ultrasound performed of the abdomen for the assessment of ascites. FINDINGS:Sonographic | | evaluation of the 4 abdominal quadrants, and of the pelvis demonstrate no definite free | | fluid. Limited views of the liver, spleen and urinary bladder demonstrate no focal | | abnormality. IMPRESSION: No drainable ascites. I have personally reviewed the images | | and, if necessary, edited the report. I agree with the report as now presented. Final | | signature: Radha Case MD 11/22/2017 10:47 AM Preliminary: Grey Hendricks MD | | Dictation initiated: Grey Hendricks MD 11/22/2017 10:37 AM | | | |IMPRESSION: | | | |No drainable ascites. | | | |I have personally reviewed the images and, if necessary, edited the report. I agree with e report as now presented. | | | |Final signature: Radha Case MD 11/22/2017 10:47 AM | |Preliminary: Grey Hendricks MD | |Dictation initiated: Grey Hendricks MD 11/22/2017 10:37 AM | + + + +---------+ + [...] diseases | + + documented in this encounter
--- OUTSIDE RECORDS SUMMARY | ~2019-10-23 | XMS | Encounter Summary ---
Demographics + + + | Address | [address] | | | [place] [address] | + + + | Home Phone | | + + + | Preferred Language | Unknown | + + + | Marital Status | Single | + + + | Episcopal Affiliation | CHR | + + + [...] Team Providers + +------+ + | Care Dress Designer Name | Role | Phone | + +------+ + | Bobbi Jenkins OPAL POLISHER | PCP | | + +------+ + Encounter Details +--------+--------+ + + + | Date | Type | Department | Care Team | Description | +--------+--------+ + + + | 03/23/ | Travel | | | | | [...]
--- OUTSIDE RECORDS SUMMARY | ~2019-10-23 | XMS | Encounter Summary ---
Demographics + + + | Address | [address] | | | [place] [address] | + + + | Home Phone | | + + + | Preferred Language | Unknown | + + + | Marital Status | Single | + + + | Protestant Affiliation | CHR | + + + [...] Team Providers + +------+ + | Care Sheet Metal Roofer Name | Role | Phone | + [...] | | | | Pulmonary | MD Mya | [facility] [address] | | | | | hypertension | [address] | | | | | (HCC) | Kevin Chavarria | [address] | | | | | Procedures | Rd | [place] | | | | | TRANSTHORACI | [place], [place] | Building, [address] | | | | | C | [address] | floor | | | | | ECHOCARDIOGR | Phone: | [place], [place] | | | | | AM, ADULT | [phone] | [address] | | | | | [place] | Fax: | Phone: | | | | | W/DPPLR, | [phone] | [phone] | | | | | COMP | | | +--------+--------+ + + + + Encounter Details +--------+ + + + + | Date | Type | Department | Care Team | Description | +--------+ + + + + | 01/18/ | Rn Internal Medicine | Pulmonary & | Mya Hall MD | Pulmonary | | 2018 | | Critical Care | [address] | hypertension (HCC) | | | | Medicine at | [address] [place], | (Primary Dx) | | | | [facility] | [place] [address] | | | | | [address] | [phone] | | | | | [facility] | | | | | | [place], [address] [place] [address] | | | | | | [place], [place] | | | | | | [address] | | | | | | [phone] | | | +--------+ + + + [...] of this encounter Plan of Treatment + +------+--------+ + + | Name | Type | Priori | Associated Diagnoses | Order Schedule | | | | ty | | | + +------+--------+ + + | TRANSTHORACIC | ECG | Routin | Pulmonary | Ordered: 01/18/2018 | | ECHOCARDIOGRAM, | | e | hypertension (HCC) | | | ADULT | | | | | + +------+--------+ + + documented as of this encounter Visit Diagnoses + + | Diagnosis | + + | Pulmonary hypertension (HCC) - Primary Other chronic pulmonary heart diseases | + + documented in this encounter"
--- OUTSIDE RECORDS SUMMARY | ~2019-10-23 | XMS | Encounter Summary ---
Demographics + + + | Address | [address] | | | [place] [address] | + + + | Home Phone | | + + + | Preferred Language | Unknown | + + + | Marital Status | Single | + + + | Adventism Affiliation | CHR | + + + [...] Team Providers + +------+ + | Care Store Coordinator Name | Role | Phone | + +------+ + | Eve Daugherty MD | PCP | | + +------+ + Reason for Visit Diagnostic Testing (Routine) +--------+--------+ + + + + | Status | Reason | Specialty | Diagnoses / | Referred By | Referred To | | | | | Procedures | Contact | Contact | +--------+--------+ + + + + | Closed | | Cardiology | Diagnoses | Rafael, | Car Echo | | | | | Pulmonary | MD Mya | [facility] [address] | | | | | hypertension | [address] | | | | | ([facility]) | Kevin Chavarria | [address] | | | | | Procedures | Rd | [place] | | | | | TRANSTHORACI | [place], [place] | [facility], 2nd | | | | | C | [address] | floor | | | | | ECHOCARDIOGR | Phone: | [place], [place] | | | | | AM, ADULT | [phone] | [address] | | | | | | Fax: | Phone: | | | | | | [phone] | [phone] | +--------+--------+ + + + + Encounter Details +--------+ + + + + | Date | Type | Department | Care Team | Description | +--------+ + + + + | 10/12/ | Hospital | Cardiac | | | | 2018 | Encounter | Non-Invasive Testing | | | | | | at [address] | | | | | | [address] | | | | | | [address] | | | | | | [place] [facility], 2nd | | | | | | floor [place], [place] | | | | | | [address] | | | | | | [phone] | | | +--------+ + + + [...] + + documented as of this encounter Flores Rizvi - 10/12/2017 9:11 AM PDTTransthoracic echocardiogram completed. Final report to follow. documented in this enco unter Plan of Treatment Not on filedocumented as of this encounter Procedures + +--------+ + + + | Procedure Name | Priori | Date/Time | Associated Diagnosis | Comments | | | ty | | | | + +--------+ + + + | TRANSTHORACIC | Routin | 10/12/2017 | Pulmonary | Results for this | | ECHOCARDIOGRAM, | e | 8:14 AM | hypertension (HCC) | procedure are in the | | ADULT | | PDT | | results section. | + +--------+ + + + documented in this encounter Results TRANSTHORACIC ECHOCARDIOGRAM, ADULT (10/12/2017 8:14 AM PDT) + + + + + + | Component | Value | Ref Range | Performed | Pathologist | | | | | At | Signature | + + + + + + | BIPLANE, EF | 63 | | [facility] | | | | | | OF | | | | | | CARDIOLOGY | | + + + + + + | EJECTION | 60 to 65 | | [facility] | | | FRACTION | | | OF | | | | | | CARDIOLOGY | | + + + + + + | LA | 3.2 | | [facility] | | | DIMENSION | | | OF | | | | | | CARDIOLOGY | | + + + + + + | LVIDD | 3.9 | | [facility] | | | | | | OF | | | | | | CARDIOLOGY | | + + + + + + | MV A VMAX | 0.9 | | [facility] | | | | | | OF | | | | | | CARDIOLOGY | | + + + + + + | MV E? | 0.1 | | [facility] | | | | | | OF | | | | | | CARDIOLOGY | | + + + + + + | MV E VMAX | 0.6 | | [facility] | | | | | | OF | | | | | | CARDIOLOGY | | + + + + + + | RVSP | 97 | | [facility] | | | | | | OF | | | | | | CARDIOLOGY | | + + + + + + | RV TAPSE | 1.8 | | [facility] | | | | | | OF | | | | | | CARDIOLOGY | | + + + + + + | RV TDI S? | 0.1 | | [facility] | | | | | | OF | | | | | | CARDIOLOGY | | + + + + + + | EJECTION | 62.5 | % | [facility] | | | FRACTION | | | OF | | | RANGE MEAN | | | CARDIOLOGY | | | VALUE | | | | | + + + + + + + + | Specimen | + + | | + + + +---- + | Narrative | Per formed At | + +---- + | [facility] | [facility] DEPT OF | | and [facility] Adult Echocardiography [facility] [address] CAR DIOLOGY | | [place] [place], [place] [address] Ph: | | | Pt Name: GEMA BARRON | | | Study Date/Time 10/12/2017 / 8:14:47 AMMRN: [id number] | | | Most recent prior: 03/22/2017Acc #: [id number] | | | No. previous echos: 1DOB: 1965 52 years Heart | | | Rate: 88 bpmHeight: 66.0 in Blood | | | Pressure: 140/92 mm/HgWeight: 180.0 lb | | | Gender: FBSA: 1.91 m2 | | | Order ID: [id number] Renewable Energy Engineer: Kellen Bazzi | | | RCSSonographer 2:Referring Provider: Mya Wayne Location: | | | OPModalities Performed: 2D, Color flow, Spectral Doppler.Study | | | Quality: Fair.Exam Indication: Pulmonary hypertensionHistory: CHF, Cor | | | Pulmonale, Right heart failure, PHTN Patient history has been | | | obtained from the EHR Transthoracic Echocardiographic Report | | | + | | | ---------+Final Impressions: | | | | | | | | | | | | | | | 1. The left ventricular cavity size is normal. | | | 2. The LV function is normal. | | | 3. | | | Moderate tricuspid regurgitation. | | | 4. RV cavity size is severely enlarged. RV | | | wall thickness is normal. RV global systolic function is | | | moderately reduced. The estimated right ventricular | | | systolic pressure is severely elevated (RVSP = 97.2 mmHg). | | | 5. No significant valvular abnormalities seen. | | | 6. Severely enlarged right atrium. | | | 7. Compared to | | | the most recent exam dated, 03/22/2017, estimated RVSP has | | | increased. | | | | | | | | | | | | + | | | + Description of Findings: Cardiac Rhythm: Normal sinus | | | rhythm.Left Ventricle: The left ventricular cavity size is normal. | | | Visually estimated left ventricular ejection fraction is 60 - 65%. | | | There is no left ventricular hypertrophy. The interventricular septum | | | is flattened in systole and diastole consistent with right ventricular | | | pressure and volume overload. The LV diastolic filling pattern has | | | impaired relaxation. The ejection fraction is 64.3 % as measured by | | | Rosa's biplane method. The LV function is normal.Left Ventricular | | | Wall Motion: Left ventricular systolic thickening is normal in all | | | segments.Atria: Left atrial size is normal. Severely enlarged right | | | atrium.Right Ventricle: Right ventricular cavity size is severely | | | enlarged. RV wall thickness is normal. The RV global systolic function | | | is moderately reduced. TAPSE measures 1.8cm. The RV TDI s' velocity | | | is .12cm/sec.Aortic Valve: The aortic valve is trileaflet and normal | | | in structure and function. No indication of aortic valve | | | regurgitation.Mitral Valve: The mitral valve is normal in structure | | | and function. Trace mitral valve regurgitation.Tricuspid Valve: The | | | tricuspid valve is normal in structure and function. Moderate | | | tricuspid regurgitation. The tricuspid regurgitant velocity is 4.72 | | | m/s, and with an assumed right atrial pressure of 8 mmHg, the | | | estimated right ventricular systolic pressure is severely elevated at | | | 97.2 mmHg.Pulmonic Valve: The pulmonic valve is normal in structure | | | and function. Trace pulmonary valve regurgitation.Aorta: Visualized | | | portions of the ascending aorta and aortic root appear normal.Venous: | | | The inferior vena cava was normal sized, with respiratory size | | | variation less than 50%.Pericardium: No pericardial effusion is | | | seen.2D Measurements Doppler Measurements | | | 2D NL Values Aortic MitralLVID(d) | | | 3.89 (3.5-5.7cm) Max Rainer 1.04 Peak E 0.63 | | | cm m/s | | | m/sLVID(s) 2.45 Mean grad 2.3 Peak A | | | 0.89 cm | | | mmHg m/sIVS(d) 0.44 (0.6-1.1cm) LVOT Rainer | | | 0.90 E/A Ratio 0.71 cm | | | m/sLVPW(d) 0.71 (0.6-1.1cm) | | | TDI (E/e') 10.5 cm LVOT | | | Diam 1.98 MV mn gdLA A/Ps 2D 3.23 (2.7-3.9cm) cm | | | cm Tricuspid PulmonicLA | | | vol A/L 35.6 (40-73ml) TR Vmax 4.72 PV VmaxBP ml | | | m/sLA vol A/L 18.6 (16-34) | | | RA Press 8 RVOT VTIindex ml/m2 | | | mmHgLA vol MOD 34.7 (40-73ml) RVSP 97 | | | PV mn gdBP ml | | | mmHgLA vol MOD 18.2 (16-34)index ml/m2 | | | Aorta: Index: | | | Ao Sinus 3.10 (2.1-3.5cm)Biplane EF 64.3 % | | | cm | | | Asc Ao 3.02 | | | (prox) cmEvaluation of chamber size and geometry is | | | accomplished through the incorporation of linear, volumetric, and | | | indexed values Report electronically signed by: Aretha Moreno MD | | | (10/12/2017, 10:33:15 AM) Final | | |index ml/m2 mmHg | | |LA vol MOD 34.7 (40-73ml) RVSP 97 PV mn gd | | |BP ml mmHg | | |LA vol MOD 18.2 (16-34) | | |index ml/m2 Aorta: Index: | | | Ao Sinus 3.10 (2.1-3.5cm) | | |Biplane EF 64.3 % cm | | | Asc Ao 3.02 | | | (prox) cm | | |Evaluation of chamber size and geometry is accomplished through the incorporation of | | |linear, volumetric, and indexed values | | | | | |Report electronically signed by: Aretha Moreno MD (10/12/2017, 10:33:15 AM) | | | | | | | | | | | | Final | | + +---- + + + | Procedure Note | + + | Interface, Cardiology Results - 10/12/2017 10:33 AM PDT [facility] | | [facility] Echocardiography Laboratory [address] [place] [address] | | [place], [place] [address] Pt Name: GEMA Hughes | | JAKI Study Date/Time 10/12/2017 / 8:14:47 AMMRN: [id number] [facility] | | recent prior: 03/22/2017Acc #: [id number] No. previous echos: 1DOB: | | 1965 52 years Heart Rate: 88 bpmHeight: 66.0 in Blood | | Pressure: 140/92 mm/HgWeight: 180.0 lb Gender: FBSA: | | 1.91 m2 Order ID: [id number] Renewable Energy Engineer: Kellen Bazzi | | RCSSonographer 2:Referring Provider: Mya Wayne Location: OPModalities Performed: | | 2D, Color flow, Spectral Doppler.Study Quality: Fair.Exam Indication: Pulmonary | | hypertensionHistory: CHF, Cor Pulmonale, Right heart failure, PHTN Patient history has | | been obtained from the EHR Transthoracic Echocardiographic | | Report+ +Fi | | nal Impressions: | | | | 1. The left ventricular cavity | | size is normal. 2. The LV function is normal. | | 3. Moderate tricuspid regurgitation. | | 4. RV cavity size is severely enlarged. RV wall thickness is | | normal. RV global systolic function is moderately reduced. The estimated right | | ventricular systolic pressure is severely elevated (RVSP = 97.2 mmHg). 5. | | No significant valvular abnormalities seen. 6. Severely | | enlarged right atrium. 7. Compared to the | | most recent exam dated, 03/22/2017, estimated RVSP has increased. | | | | | | + + | | Description of Findings: Cardiac Rhythm: Normal sinus rhythm.Left Ventricle: The left | | ventricular cavity size is normal. Visually estimated left ventricular ejection fraction | | is 60 - 65%. There is no left ventricular hypertrophy. The interventricular septum is | | flattened in systole and diastole consistent with right ventricular pressure and volume | | overload. The LV diastolic filling pattern has impaired relaxation. The ejection | | fraction is 64.3 % as measured by Rosa's biplane method. The LV function is | | normal.Left Ventricular Wall Motion: Left ventricular systolic thickening is normal in | | all segments.Atria: Left atrial size is normal. Severely enlarged right atrium.Right | | Ventricle: Right ventricular cavity size is severely enlarged. RV wall thickness is | | normal. The RV global systolic function is moderately reduced. TAPSE measures 1.8cm. The | | RV TDI s' velocity is .12cm/sec.Aortic Valve: The aortic valve is trileaflet and normal | | in structure and function. No indication of aortic valve regurgitation.Mitral Valve: | | The mitral valve is normal in structure and function. Trace mitral valve | | regurgitation.Tricuspid Valve: The tricuspid valve is normal in structure and function. | | Moderate tricuspid regurgitation. The tricuspid regurgitant velocity is 4.72 m/s, and | | with an assumed right atrial pressure of 8 mmHg, the estimated right ventricular | | systolic pressure is severely elevated at 97.2 mmHg.Pulmonic Valve: The pulmonic valve | | is normal in structure and function. Trace pulmonary valve regurgitation.Aorta: | | Visualized portions of the ascending aorta and aortic root appear normal.Venous: The | | inferior vena cava was normal sized, with respiratory size variation less than | | 50%.Pericardium: No pericardial effusion is seen.2D Measurements Doppler | | Measurements 2D NL Values Aortic MitralLVID(d) 3.89 | | (3.5-5.7cm) Max Rainer 1.04 Peak E 0.63 cm m/s | | m/sLVID(s) 2.45 Mean grad 2.3 Peak A 0.89 | | cm mmHg m/sIVS(d) 0.44 (0.6-1.1cm) LVOT Rainer | | 0.90 E/A Ratio 0.71 cm m/sLVPW(d) 0.71 | | (0.6-1.1cm) TDI (E/e') 10.5 cm LVOT Diam 1.98 | | MV mn gdLA A/Ps 2D 3.23 (2.7-3.9cm) cm cm | | Tricuspid PulmonicLA vol A/L 35.6 (40-73ml) TR Vmax 4.72 PV VmaxBP ml | | m/sLA vol A/L 18.6 (16-34) RA Press 8 RVOT VTIindex | | ml/m2 mmHgLA vol MOD 34.7 (40-73ml) RVSP 97 PV | | mn gdBP ml mmHgLA vol MOD 18.2 (16-34)index | | ml/m2 Aorta: Index: Ao | | Sinus 3.10 (2.1-3.5cm)Biplane EF 64.3 % cm | | Asc Ao 3.02 (prox) cmEvaluation of chamber | | size and geometry is accomplished through the incorporation of linear, volumetric, and | | indexed values Report electronically signed by: Aretha Moreno MD (10/12/2017, 10:33:15 | | AM) Final | |Tricuspid Valve: The tricuspid valve is normal in structure and function. Moderate | |tricuspid regurgitation. The tricuspid regurgitant velocity is 4.72 m/s, and with an | |assumed right atrial pressure of 8 mmHg, the estimated right ventricular systolic | |pressure is severely elevated at 97.2 mmHg. | |Pulmonic Valve: The pulmonic valve is normal in structure and function. Trace | |pulmonary valve regurgitation. | |Aorta: Visualized portions of the ascending aorta and aortic root appear normal. | |Venous: The inferior vena cava was normal sized, with respiratory size variation less | | than 50%. | |Pericardium: No pericardial effusion is seen. | |2D Measurements Doppler Measurements | | | | 2D NL Values Aortic Mitral | |LVID(d) 3.89 (3.5-5.7cm) Max Rainer 1.04 Peak E 0.63 | | cm m/s m/s | |LVID(s) 2.45 Mean grad 2.3 Peak A 0.89 | | cm mmHg m/s | |IVS(d) 0.44 (0.6-1.1cm) LVOT Rainer 0.90 E/A Ratio 0.71 | | cm m/s | |LVPW(d) 0.71 (0.6-1.1cm) TDI (E/e') 10.5 | | cm LVOT Diam 1.98 MV mn gd | |LA A/Ps 2D 3.23 (2.7-3.9cm) cm | | cm Tricuspid Pulmonic | |LA vol A/L 35.6 (40-73ml) TR Vmax 4.72 PV Vmax | |BP ml m/s | |LA vol A/L 18.6 (16-34) RA Press 8 RVOT VTI | |index ml/m2 mmHg | |LA vol MOD 34.7 (40-73ml) RVSP 97 PV mn gd | |BP ml mmHg | |LA vol MOD 18.2 (16-34) | |index ml/m2 Aorta: Index: | | Ao Sinus 3.10 (2.1-3.5cm) | |Biplane EF 64.3 % cm | | Asc Ao 3.02 | | (prox) cm | |Evaluation of chamber size and geometry is accomplished through the incorporation of | |linear, volumetric, and indexed values | | | |Report electronically signed by: Aretha Moreno MD (10/12/2017, 10:33:15 AM) | | | | | | | | Final | + + + + + + + | Performing | Address | City/State/Zipcode | Phone Number | | Organization | | | | + + + + + | [facility] | [address] | [place], [place] | | | CARDIOLOGY | [address] | [address] | | + + + + + documented in this encounter Visit Diagnoses + + | Diagnosis | + + | Pulmonary hypertension (HCC) Other chronic pulmonary heart diseases | + + documented in this encounter"
--- OUTSIDE RECORDS SUMMARY | ~2019-10-23 | XMS | Encounter Summary ---
Demographics + + + | Address | [address] | | | [place] [address] | + + + | Home Phone [...] Author + + + | Author | [facility] | + + + | Organization | [facility] | + + + | Address [...] Team Providers + +------+ + | Care Functional Mental Disability Teacher Name | Role | Phone | + +------+ + | Bobbi Jenkins NP | PCP | | + +------+ + Reason for Visit + +--------+ + | Reason | Onset | Comments | | | Date | | + +--------+ + | Update from Patient | 09/14/ | | | | 2020 | | + +--------+ + Encounter Details +--------+ + + + + | Date | Type | Department | Care Team | Description | +--------+ + + + + | 09/14/ | Telephone | Pulmonary & | Beth Keith, | Update from Patient | | 2020 | | Critical Care | [address] [facility] | | | | | Medicine at | [facility] | | | | | [address]icians [address] | [place], [place] | | | | | [address] | [address] | | | | | [address] | [phone] | | | | | Donna, [address] [place] [address] | | | | | | [place], [place] | | | | | | [address] | | | | | | [phone] | | | +--------+ + + + [...] Telephone Encounter - Beth Keith MD - 09/15/2019 12:20 PM PDTLeft message for patient to clarify the name and contact information for her surgeon. Her pulmonary hypertension arizmendi s put her at an increased risk for general anesthesia however I will send a pre-op note to [facility] surgeon's office documenting what precautions should be taken during the surgery. The ris k should not preclude her from undergoing a medical necessary procedure.Electronically selene d by Beth Keith MD at 09/15/2019 12:22 PM PDTTelephone Encounter - Saniya Mcmillan - 09/15/2019 8:31 AM PDTSandy indicates that she will be having breast lumpectomy surgery on 10/02/19 and is a little concerned as she will be having general anesthesia. She would like Dr. Keith to confirm with her that she will be ok to proceed. documented in this encounter Plan of Treatment Not on filedocumented as of this encounter Visit Diagnoses Not on filedocumented in this encounter"
--- OUTSIDE RECORDS SUMMARY | ~2019-10-23 | XMS | Encounter Summary ---
Demographics + + + | Address | [address] | | | [place] [address] | + + + | Home Phone [...] Team Providers + +------+ + | Care Collarette Separator Name | Role | Phone | + +------+ + | Bobbi Jenkins SEMIAUTOMATIC STITCHER OPERATOR | PCP | | + +------+ + Encounter Details +--------+--------+ + + + | Date | Type | Department | Care Team | Description | +--------+--------+ + + + | 11/25/ | Travel | | | | | 2018 | | | | | +--------+--------+ + [...]
--- OUTSIDE RECORDS SUMMARY | ~2019-10-23 | XMS | Encounter Summary ---
Demographics + + + | Address | [address] | | | [place] [address] | + + + | Home Phone | | + + + | Preferred Language | Unknown | + + + | Marital Status | Single | + + + | Buddhism Affiliation | CHR | + + + [...] Team Providers + +------+ + | Care Play Therapist Name | Role | Phone | + [...] Description | +--------+--------+ + + + | 12/16/ | Refill | Pulmonary & | Mya Hall MD | Refill Request | | 2018 | | Critical Care | [address] | | | | | Medicine at | [facility], | | | | | [address] | [place] [address] | | | | | [address] | [phone] | | | | | [address] | | | | | | Donna, [facility] Floor | | | | | | [place], [place] | | | | | | [address] | | | | | | [phone] | | | +--------+--------+ + + + [...] Telephone Encounter - Sydni Saldana MA - 12/16/2017 10:08 AM PSTFormatting of this note horacio ht be different from the original. REFILL REQUEST DATE: December 16, 2017 PATIENT: Gema Barron [id number] MESSAGE: On current med list Requested Prescriptions Pending Prescriptions Disp Refills LETAIRIS 10 mg oral tablet [Pharmacy Med Name: LETAIRIS 10 MG TABLET] 30 tablet PRN Sig: TAKE 1 TABLET BY MOUTH EVERY DAY LAST APPOINTMENT: 10/12/17 at 3:43 pm NEXT APPOINTMENT: No future appointments scheduled in Pulmonary Disease. Patient's pharmacy has been verified: Yes [id number] [place] [id number] documented in this encou nter Plan of Treatment Not on filedocumented as of this encounter Visit Diagnoses + + | Diagnosis | + + | Pulmonary hypertension (HCC) Other chronic pulmonary heart diseases | + + documented in this encounter"
--- OUTSIDE RECORDS SUMMARY | ~2019-10-23 | XMS | Encounter Summary ---
Demographics + + + | Address | [address] | | | [place] [address] | + + + | Home Phone [...] Author + + + | Author | [facility] | + + + | Organization | [facility] | + + + | Address | [...] Team Providers + +------+ + | Care Log Yard Manager Name | Role | Phone | + +------+ + | Bobbi Jenkins NP | PCP | | + +------+ + Reason for Visit + +--------+ + | Reason | Onset | Comments | | | Date | | + +--------+ + | Post-discharge | 11/18/ | | | follow-up | 2019 | | + +--------+ + Encounter Details +--------+ + + + + | Date | Type | Department | Care Team | Description | +--------+ + + + + | 11/18/ | Telephone | Pulmonary & | Arti Beltran, | Post-discharge | | 2019 | | Critical Care | [address] | follow-up | | | | Medicine at | [facility] | | | | | [facility] [address] | [place], [place] | | | | | [address] | [address] | | | | | [address] | [phone] | | | | | Donna, [facility] Floor | | | | | | [place], [place] | | | | | | [address] | | | | | | [phone] | | | +--------+ + + + [...] this encounter Miscellaneous Notes Telephone Encounter - Arti Beltran MD - 11/18/2018 6:34 AM PDTPatient will need a hos pital discharge follow up with Dr. Benjamin in 2-3 weeks. Okay to overbook per Dr. Benjamin. Thanks, Caitlin documented in this encounter Plan of Treatment Not on filedocumented as of this encounter Visit Diagnoses Not on filedocumented in this encounter"
--- OUTSIDE RECORDS SUMMARY | ~2019-10-23 | XMS | Encounter Summary ---
Demographics + + + | Address | [address] | | | [place] [address] | + + + | Home Phone [...] Team Providers + +------+ + | Care Flanging Machine Operator Name | Role | Phone | + +------+ + | Eve Daugherty MD | PCP | | + +------+ + Reason for Visit + +--------+ + | Reason | Onset | Comments | | | Date | | + +--------+ + | Refill Request | 06/13/ | | | | 2019 | | + +--------+ + Encounter Details +--------+--------+ + + + | Date | Type | Department | Care Team | Description | +--------+--------+ + + + | 06/13/ | Refill | Pulmonary & | Mya Hall MD | Refill Request | | 2019 | | Critical Care | [address] [facility] | | | | | Medicine at | [address], | | | | | [address] | [place] [address] | | | | | [address] | [phone] | | | | | [address] | | | | | | Pavilion, [address] Floor | | | | | | [place], [place] | | | | | | [address] | | | | | | [phone] | | | +--------+--------+ + + + [...] Telephone Encounter - Mark Murphy MA - 06/13/2018 4:25 PM PDTFormatting of this note mi gilbertt be different from the original. REFILL REQUEST DATE: June 13, 2018 PATIENT: Gema Barron [id number] Received refill request from the pharmacy. Reviewed chart, medication current on med list. Rx pended and routed to the provider for approval or denial. Requested Prescriptions Pending Prescriptions Disp Refills Ambrisentan (LETAIRIS) 10 mg oral tablet 30 tablet 11 Sig: Take 1 tablet by mouth once daily. Indications: pulmonary arterial hypertension LAST APPOINTMENT: 10/12/17 at 3:39 pm NEXT APPOINTMENT: 07/26/18 at 3:30 pm Patient's pharmacy has been verified: Yes [facility] [address] [place], [place] [id number] RX NOT RECEIVED LAST MONTH WOULD LIKE NEW RX [facility] NUMBERElectronically s igned by Mark Murphy MA at 06/13/2018 4:27 PM PDTdocumented in this encounter Plan of Treatment Not on filedocumented as of this encounter Visit Diagnoses + + | Diagnosis | + + | Pulmonary hypertension (HCC) Other chronic pulmonary heart diseases | + + documented in this encounter"
--- OUTSIDE RECORDS SUMMARY | ~2019-10-23 | XMS | Encounter Summary ---
Demographics + + + | Address | [address] | | | [place] [address] | + + + | Home Phone [...] + + + | Author | [facility] | + + + | Organization | [facility] | + + [...] Team Providers + +------+ + | Care Director Construction Services Name | Role | Phone | + +------+ + | Eve Daugherty MD | PCP | | + +------+ + Reason for Visit + +--------+ + | Reason | Onset | Comments | | | Date | | + +--------+ + | Discharge from | 03/30/ | | | hospital | 2018 | | + +--------+ + Encounter Details +--------+ + + + + | Date | Type | Department | Care Team | Description | +--------+ + + + + | 03/30/ | Telephone | Cardiology Cardiac | Josephine Rush, | Discharge from | | 2018 | | Transplant at [facility] | IRRIGATION PUMP INSTALLER [address] | hospital | | | | [address] | [place], [place] | | | | | [facility] | [address] | | | | | and Jade, | [phone] | | | | | [facility] | | | | | | Floor [place], [place] | | | | | | [address] | | | | | | [phone] | | | +--------+ + + + [...] this encounter Miscellaneous Notes Telephone Encounter - Josephine Rush, SARAHI - 03/30/2017 5:14 PM PSTFormatting of this not e might be different from the original. I called pt to see how she is doing. States she feels the best she has felt in years. HF Follow up call Called and spoke with pt regarding his discharge and transition home Lives in the [facility] 2 feet of snow there already today! Weight: since going home 161,8 160.8 162,6 Discharge weight: Wt Readings from Last 1 Encounters: 03/27/17 74.2 kg (163 lb 9.3 oz) Since discharge: same Reports the follow symptoms: SOB at rest no Still coughing all of the time -finishing up abx. MARTINEZ No 3 story gets tired Orthopnea Flat bed Pt sleeps 2 pillow(s) PND no Red Flags: What are the symptoms that you experience first when your heart failure is worse charlene? Shortness of breath and cough Medications: We reviewed medications No she has them all we reviewed and she is taking as directed. Diet: watching her sodium intake, sounds well versed on sodium. Avoiding canned items. Follow up: Pt has PCP follow up scheduled yes Pt has Cardiology follow up scheduled no following with Dr Hall Questions:no Provided the phone number for general cardiology in case any questions or concerns in the f uture. Patient Experience: What could we have done better? I didn't get to see social media marketing analyst What was the one thing you think we did best during your stay? They were Amazing. Every time I rang my malagon someone was there. I had many teams and they all kept me and my family informed. Trying to get in touch with social media marketing analyst Never got to meet with her or speak on the phone NYHA Class: II EJECTION FRACTION Date Value Ref Range Status 03/22/2017 60 to 65 Final Lab Results Component Value Date NTPROBNP 2,135 03/18/2017 Lab Results Component Value Date NA 138 03/27/2017 K 4.6 03/27/2017 CL 108 03/27/2017 BICARB 24 03/27/2017 BUN 24 03/27/2017 CR 0.81 03/27/2017 GLU 97 03/27/2017 CA 8.6 03/27/2017 ANIONGAP 6 03/27/2017 ANIONALBCOR 7 03/17/2017 Routing to Liz NEWMAN And discharge team documented in this encounter Plan of Treatment Not on filedocumented as of this encounter Visit Diagnoses Not on filedocumented in this encounter"
--- OUTSIDE RECORDS SUMMARY | ~2019-10-23 | XMS | Encounter Summary ---
Demographics + + + | Address | [address] | | | [place] [address] | + + + | Home Phone | | + + + | Preferred Language | Unknown | + + + | Marital Status | Single | + + + | Latter-Day Affiliation | CHR | + + + | Race | White | + + + | Ethnic Group | Not or | + + + Author + + + | Author | [facility] | + + + | Organization | [facility] | + + + | Address [...] Team Providers + +------+ + | Care Dam Worker Name | Role | Phone | + +------+ + | Bobbi Jenkins NP | PCP | | + +------+ + Encounter Details +--------+ + + + + | Date | Type | Department | Care Team | Description | +--------+ + + + + | 03/23/ | Results/Int | Pulmonary & | | | | 2020 | erpretation | Critical Care | | | | | | Medicine at [facility] | | | | | | [address] | | | | | | [facility] | | | | | | [place], [address] [place] [address] | | | | | | [place], [place] | | | | | | [address] | | | | | | [phone] | | | +--------+ + + + [...] + + documented as of this encounter Progress Notes Harpal Simon MD - 03/23/2019 10:30 AM PSTDuplicate visit. documented in this encounter Plan of Treatment Not on filedocumented as of this encounter Procedures + +--------+ + + + | Procedure Name | Priori | Date/Time | Associated Diagnosis | Comments | | | ty | | | | + +--------+ + + + | DESATURATION STUDY, | Routin | 03/23/2019 | Pulmonary | Results for this | | PULM FUNCTION LAB | e | 9:45 AM | hypertension (HCC) | procedure are in the | | | | PST | | results section. | + +--------+ + + + documented in this encounter Results DESATURATION STUDY, PULM FUNCTION LAB (03/23/2019 9:45 AM PST) + + + + + + | Component | Value | Ref Range | Performed | Pathologist | | | | | At | Signature | + + + + + + | PULMONARY | Site: [facility] and | | [facility] | | | INTERPRETAT | [facility], [address] | [address] | | | [address] | [address] [facility] | | DIAGNOSTICS | | | | [address],[place], [place], | | - | | | | [address]WD: [id number] | | PULMONARY | | | | Name: GEMA POLLACK | | FUNCTION | | | | SVisit Date: 03/23/2019 | | | | | | Second ID: | | | | | | [id number]: | | | | | | Emerald IzaguirreAge: 54 | | | | | | : 1965 Sex: | | | | | | Female Race: | | | | | | CaucasianHeight: 164.50 | | | | | | Cms Weight: 81.10 | | | | | | Kgs BSA: 1.88Order | | | | | | IDs: [id number] | | | | | | Test(s): <DESATURATION | | | | | | STUDY>Diagnosis: | | | | | | Pulmonary hypertension | | | | | | I27.20Dyspnea: After any | | | | | | exertion Cough: | | | | | | Non-Productive Wheeze: | | | | | | No WheezeTbco Prod: | | | | | | Never SmokedMedications: | | | | | | Albuterol PRNPost Test | | | | | | Comments: Patient height | | | | | | and weight reviewed. | | | | | | Good patient effort | | | | | | &cooperation. -SIX | | | | | | MINUTE WALK TEST- | | | | | | Baseline Data: Heart | | | | | | Rate: 94 SpO2: 96% | | | | | | Dyspnea (Lynette Scale): 1 | | | | | | Fatigue(Lynette Scale): | | | | | | 3Post Test Data: | | | | | | Heart Rate: 117 SpO2: | | | | | | 92% Dyspnea (Lynette | | | | | | Scale): 3Fatigue (Lynette | | | | | | Scale): 51 Minute Post | | | | | | Test: Heart Rate: 104 | | | | | | HHR1 (Post Test HR - | | | | | | 1 Minute Post TestHR): | | | | | | 13 Distance Walked: | | | | | | 1140 feet Time | | | | | | Walked:6 minutes, | | | | | | Test Performed On:2LPM | | | | | | - DESAT STUDY- | | | | | | Recertification: X | | | | | | At Rest: SpO2 RA: | | | | | | 96% With Exercise: | | | | | | SpO2 RA: 88% | | | | | | SpO2 on 1-4 Liters: 96% | | | | | | on 2LReview Status: | | | | | | Completed+Posted+Locked | | | | | | Interpretation: | | | | | | INTERPRETATION:SIX | | | | | | MINUTE WALK:Testing | | | | | | performed on 2L | | | | | | supplemental oxygen. The | | | | | | distance walked is | | | | | | mildlyreduced ([phone] | | | | | | feet). No significant | | | | | | hypoxia. The Heart Rate | | | | | | Recovery (Heart rate | | | | | | immediately post 6MW | | | | | | minus heart rate at 1 | | | | | | minute post- 6MW) | | | | | | isnormal (Normal >12 | | | | | | beats/minute). DESAT | | | | | | STUDY:96% on room air at | | | | | | rest, hypoxia to 88% on | | | | | | room air with exercise | | | | | | that improvedto 96% with | | | | | | 2L supplemental oxygen. | | | | | | CONCLUSION:Exertional | | | | | | hypoxia requiring 2L | | | | | | supplemental oxygen. | | | | + + + + + + | DISTANCE | [address] | | [facility] | | | WALKED-METE [...] BEATRIS SCHWARTZ | [address] | [place] | | | DIAGNOSTICS - | [address] | [address] | | | PULMONARY FUNCTION | | | | + + + + + documented in this encounter Visit Diagnoses Not on filedocumented in this encounter"
--- OUTSIDE RECORDS SUMMARY | ~2019-10-23 | XMS | Encounter Summary ---
Demographics + + + | Address | [address] | | | [place] [address] | + + + | Home Phone [...] Author + + + | Author | [facility] | + + + | Organization | [facility] | + + + | Address [...] Team Providers + +------+ + | Care Nursery School Teacher Name | Role | Phone | + +------+ + | Eve Daugherty MD | PCP | | + +------+ + Encounter Details +--------+ + + + + | Date | Type | Department | Care Team | Description | +--------+ + + + + | 10/12/ | Results/Int | Pulmonary & | | Primary pulmonary | | 2018 | erpretation | Critical Care | | hypertension (HCC) | | | | Medicine at [facility] | | (Primary Dx) | | | | [address] | | | | | | [address] [facility] | | | | | | [place], 3[address] Floor | | | | | | [place], [place] | | | | | | [address] | | | | | | [phone] | | | +--------+ + + + [...] documented as of this encounter Progress Notes Cristobal Brown MD - 10/19/2017 1:54 PM PDT Refer to PFT report. d ocumented in this encounter Plan of Treatment Not on filedocumented as of this encounter Procedures + +--------+ + + + | Procedure Name | Priori | Date/Time | Associated Diagnosis | Comments | | | ty | | | | + +--------+ + + + | [place] PULMONARY STRESS | Routin | 10/19/2017 | Primary pulmonary | | | TESTING | e | 1:54 PM | hypertension (HCC) | | | | | PDT | | | + +--------+ + + + documented in this encounter Visit Diagnoses + + | Diagnosis | + + | Primary pulmonary hypertension (HCC) - Primary Primary pulmonary hypertension | + + documented in this encounter"
--- OUTSIDE RECORDS SUMMARY | ~2019-10-23 | XMS | Encounter Summary ---
Demographics + + + | Address | [address] | | | [place] [address] | + + + | Home Phone [...] Team Providers + +------+ + | Care Electrical Integrator Name | Role | Phone | + [...] + + + + | 06/19/ | Documentati | Pulmonary & | Beth Keith, | SOB - Shortness of | | 2019 | on | Critical Care | [address] | breath | | | | Medicine at | [facility] | | | | | Physicians [place] | [place], [place] | | | | | [address] | [address] | | | | | [facility] | [phone] | | | | | Donna, [address] [place] [address] | | | | | | [place], [place] | | | | | | [address] | | | | | | [phone] | | | +--------+ + + + [...] Telephone Encounter - Beth Keith MD - 06/20/2019 3:31 PM PDTCall to pt to discuss re sults of her [facility] Showed moderately enlarged RV which is stable. RVSP is 47 (previously 57) and TR peak velocity is 3.3 (previously 3.7). Overall echo shows mild improvement in pulmonary hypertension. Despite this, she continues to feel short of breath with exertion. She also has a dry cough with persistent chest pain. Worse wi th deep breathing. She presented to the [facility] Emergency Department yesterda y for chest pain and workup was reportedly negative. She has no prior history of lung diseas e that she knows of. She does report significant acid reflux. Also has sinus congestion. Cur rently taking flonase. Assessment/Plan 1. SOB: could be related to deconditioning (has chronic back pain and has been essentially sedentary since Feb) or heart failure. I increased her diuretics to from 40mg BID to 40mg TI D last week. She has lost about 4lbs so far and is about 5lbs from her dry weight. She is to continue on this regimen along with potassium 60meq daily. No changes to rest of PAH regime n. 2. Chest pain: likely related to poorly controlled GERD. Could also be musculoskeletal in o rigin from persistent coughing. She will try taking Nexium OTC. 3. Cough: likely from post nasal drip. Having sinus congestion. On flonase. Recommended add ing [place] nasal saline rinses BID Follow up with me for a phone visit next week (already scheduled) Beth Keith MD PULMONARY & CRITICAL CARE MEDICINE AT [facility] [address] [place] [address] Phys[address], [address] [place] [address] documented in this en counter Plan of Treatment Not on filedocumented as of this encounter Visit Diagnoses Not on filedocumented in this encounter"
--- OUTSIDE RECORDS SUMMARY | ~2019-10-23 | XMS | Encounter Summary ---
Demographics + + + | Address | [address] | | | [place] [address] | + + + | Home Phone [...] Author + + + | Author | [facility] | + + + | Organization | [facility] | + + + | Address [...] Team Providers + +------+ + | Care Pharmacy Services Director Name | Role | Phone | + +------+ + | Bobbi Jenkins NP | PCP | | + +------+ + Reason for Visit + +--------+ + | Reason | Onset | Comments | | | Date | | + +--------+ + | Lab Results | 08/23/ | | | | 2019 | | + +--------+ + | Not feeling well | 08/23/ | | | | 2019 | | + +--------+ + | Lab Results | 08/24/ | | | | 2019 | | + +--------+ + Encounter Details +--------+ + + + + | Date | Type | Department | Care Team | Description | +--------+ + + + + | 08/23/ | Telephone | Pulmonary & | Beth Keith, | Lab Results; Not | | 2020 | | Critical Care | [address] | feeling well; Lab | | | | Medicine at | [facility] | Results | | | | [facility] | [place], [place] | | | | | [address] | [address] | | | | | Loop [facility]'s | [phone] | | | | | Donna, [address] [place] [address] | | | | | | [place], [place] | | | | | | [address] | | | | | | [phone] | | | +--------+ + + + [...] Telephone Encounter - Beth Keith MD - 08/25/2019 5:23 PM PDTAddressed in my chart me ssage elephone Encount er - Holly Early - 08/25/2019 3:15 PM PDTINBOUND CALL DATE: August 25, 2019 PATIENT: Gema Barron : 1965 Inbound call from Gema Ellen Anderson. Callback number [phone]. Calling regarding lab results. Requesting call back. Second request. Patient also reports fatigue, shortness of breath and blood in stool. elephone Encounter - Holly Early - 08/24/2019 3:46 PM PDTINBOUND CALL DATE: August 24, 2019 PATIENT: Gema Barron : 1965 Inbound call from Gema Ellen Anderson. Callback number [phone]. Calling regarding lab results. Requesting call back. Patient also reports fatigue and shortness of breath. Last Appointment: Last Appointment in [address] was on 03/23/19 at 3:31 pm with Kate Benjamin MD. Next Appointment:Next Appointment in [facility] is on 10/05/19 at 3:10 pm with Pf Adult Head Bookkeeper. documented in this encounter Plan of Treatment Not on filedocumented as of this encounter Visit Diagnoses Not on filedocumented in this encounter"
--- OUTSIDE RECORDS SUMMARY | ~2019-10-23 | XMS | Encounter Summary ---
Demographics + + + | Address | [address] | | | [place] [address] | + + + | Home Phone [...] | Author | [facility] | + + + | Organization | [facility] | + + + | Address | [...] Team Providers + +------+ + | Care Hair Spring Cutter Name | Role | Phone | + +------+ + | Eve Daugherty MD | PCP | | + +------+ + Reason for Visit +---------+--------+ + | Reason | Onset | Comments | | | Date | | +---------+--------+ + | Ascites | 12/27/ | | | | 2018 | | +---------+--------+ + Encounter Details +--------+ + + + + | Date | Type | Department | Care Team | Description | +--------+ + + + + | 12/27/ | Telephone | Pulmonary & | Mya Hall MD | Ascites | | 2018 | | Critical Care | [address] | | | | | Medicine at | [address] [place], | | | | | [facility] | [place] [address] | | | | | [address] | [phone] | | | | | [facility] | | | | | | Donna, [address] [place] [address] | | | | | | [place], [place] | | | | | | [address] | | | | | | [phone] | | | +--------+ + + + [...] Telephone Encounter - Mindi Irwin MA - 12/29/2017 10:01 AM PSTPer message from Dr. Jay wilson called patient and relayed the information below. I received her voicemail, left this in formation and let her know we would be available in the office today until about 4:00 pm and then closed for the holiday until 8:00 am Wednesday. From: Mya Hall MD Sent: 12/27/2017 10:18 PM To: Mindi Irwin MA Please have patient start taking ambrisentan (Letaris) one tablet per day (10 mg) and isi nue sildenafil 20 mg three times per day and the diuretics as she has been taking them. Thank you. Mya Adamsonlectronically signed by Mindi Irwin MA at 12/29/2017 10:03 AM PSTTelephone Encounter - Mindi Irwin MA - 12/27/2017 10:51 AM PSTPatient called in stating that s he is up to 190.8 lbs as of this morning. Patient reports that she gained 6 pounds yesterday alone. She feels that the torsemide works for her but only for about 24-36 hours and then i t just stops. Patient said that previously Dr. Hall had told her she could go in to her [facility] for diuresis but when she does this she feels that it only really "clears out the top level" of fluid it doesn't completely get rid of the fluid that has built up. Patient r eports that she has almost completely cut out sodium from her diet and she is currently taki ng a half tablet of her letairis which she feels has definitely helped her. Patient wants to know if Dr. Hall has any other recommendations for her to help eliminate all of the fluid i n her abdomen. Informed the patient that I would get a message to Dr. Hall and follow up wit h her once I receive a response. documented in this encounter Plan of Treatment Not on filedocumented as of this encounter Visit Diagnoses Not on filedocumented in this encounter
--- OUTSIDE RECORDS SUMMARY | ~2019-10-23 | XMS | Encounter Summary ---
Demographics + + + | Address | [address] | | | [place] [address] | + + + | Home Phone [...] + + + | Author | [facility] | + + + | Organization | [facility] | + + + | Address | [...] Team Providers + +------+ + | Care Informatics Physician Name | Role | Phone | + +------+ + | Eve Daugherty MD | PCP | | + +------+ + Encounter Details +--------+ + + + + | Date | Type | Department | Care Team | Description | +--------+ + + + + | 11/17/ | Telephone | Pulmonary & | Mya Hall MD | | | 2018 | | Critical Care | [address] | | | | | Medicine at [facility], | | | | | Physicians [place] | [place] [address] | | | | | [address] | [phone] | | | | | Loop [facility] | | | | | | Donna, [facility] Floor | | | | | | [place], [place] | | | | | | [address] | | | | | | [phone] | | | +--------+ + + + [...] Telephone Encounter - Sydni Saldana MA - 11/22/2017 8:16 AM PDTFormatting of this note horacio ht be different from the original. I called pt and she states that she will have her paracentesis done at [facility] today at 9am. Mya Hall MD You 3 days ago Please call patient back and schedule procedure to be done at [facility] patient is willing to co me here (Routing comment) elephone Encounter - Sydni Pike MA - 11/17/2017 3:50 PM PDT Patient calling to report that she is currently scheduled for paracentesis with [facility] on 11/26/17. She states that she can not wait that long and wants to know what Dr Louisa Hall advises. I called [facility] radiology and they can see her for paracentesis on 11/22/17 at 9am. I booked that slot in case you wanted pt to have it done at [facility]. Let MA staff know an d we will call patient back. Order US ABDOMEN W/ PARACENTESIS INITIAL & GUIDANCE (Order # [id number]) on 11/09/2017 View Encounter documented in this encou nter Plan of Treatment Not on filedocumented as of this encounter Visit Diagnoses Not on filedocumented in this encounter"
--- OUTSIDE RECORDS SUMMARY | ~2019-10-23 | XMS | Encounter Summary ---
Demographics + + + | Address | [address] | | | [place] [address] | + + + | Home Phone [...] Author + + + | Author | [facility] | + + + | Organization | [facility] | + + + | [...] Providers + +------+ + | Care Manager Leasing Name | Role | Phone | + +------+ + | Eve Daugherty MD | PCP | | + +------+ + Reason for Visit + +--------+ + | Reason | Onset | Comments | | | Date | | + +--------+ + | Medication | 02/17/ | Furosemide | | management | 2019 | | + +--------+ + Encounter Details +--------+ + + + + | Date | Type | Department | Care Team | Description | +--------+ + + + + | 02/17/ | Telephone | Pulmonary & | Rosangela Hall MD | Medication | | 2019 | | Critical Care | [address] | management | | | | Medicine at | [facility], | (Furosemide) | | | | [facility] | [place] [address] | | | | | [address] | [phone] | | | | | Loop [facility] | | | | | | [address], 3rd Floor | | | | | | [place], [place] | | | | | | [address] | | | | | | [phone] | | | +--------+ + + + [...] Telephone Encounter - Rosangela Hall MD - 02/21/2018 3:17 PM PSTI spoke to the patient on . Patient has noticed increased fluid retention. She is taking her current medication s are sildenafil 20 mg 3 times per day and ambrisentan 10 mg once daily. Torsemide 40 mg AM 20 mg PM and Potassium 2 BID. I have asked her to increase her torsemide to 40 mg twice ger ly. She has had progression of her pulmonary artery hypertension and likely will require additi on of a third agent. This will be discussed with her on her follow-up visit. ROSANGELA HALL MD (VASILE) [facility] | [facility] & [address] | Mailcode: [id number] | [facility] [address] | [id number] signed by Rosangela Hall MD at 11:20 AM PSTTelephone Encounter - Sydni Saldana MA - 02/17/2018 1:19 PM PSTPatient called wanting to let Dr. Hall know that she has been retaining fluid for the past four days. She is taking Torsemide as listed on her medication list. She states that she urinates about twi ce per day. She feels that the Torsemide is not working any more like it use to. She would l bruno instructions of what she should do. documented in this encou nter Plan of Treatment Not on filedocumented as of this encounter Visit Diagnoses + + | Diagnosis | + + | Pulmonary hypertension (HCC) Other chronic pulmonary heart diseases | + + documented in this encounter"
--- OUTSIDE RECORDS SUMMARY | ~2019-10-23 | XMS | Encounter Summary ---
Demographics + + + | Address | [address] | | | [place] [address] | + + + | Home Phone | | + + + | Preferred Language | Unknown | + + + | Marital Status | Single | + + + | Shinto Affiliation | CHR | + + + [...] Team Providers + +------+ + | Care Fiscal Assistant Name | Role | Phone | + +------+ + | Bobbi Jenkins NP | PCP | | + +------+ + Encounter Details +--------+ + + + + | Date | Type | Department | Care Team | Description | +--------+ + + + + | 03/23/ | Results/Int | Pulmonary & | | Pulmonary | | 2020 | erpretation | Critical Care | | hypertension (HCC) | | | | Medicine at [facility] | | (Primary Dx) | | | | [address] | | | | | | Loop [facility] | | | | | | [address], [address] [facility] | | | | | | [place], [place] | | | | | | [address] | | | | | | [phone] | | | +--------+ + + + [...] Progress Notes Harpal Simon MD - 03/23/2019 10:10 AM PST Refer to PFT report. documented in this encounter Plan of Treatment Not on filedocumented as of this encounter Procedures + +--------+ + + + | Procedure Name | Priori | Date/Time | Associated Diagnosis | Comments | | | ty | | | | + +--------+ + + + | [place] PULMONARY STRESS | Routin | 03/23/2019 | Pulmonary | | | TESTING | e | 5:56 PM | hypertension (HCC) | | | | | PST | | | + +--------+ + + + documented in this encounter Visit Diagnoses + + | Diagnosis | + + | Pulmonary hypertension (HCC) - Primary Other chronic pulmonary heart diseases | + + documented in this encounter"
--- OUTSIDE RECORDS SUMMARY | ~2019-10-23 | XMS | Encounter Summary ---
Demographics + + + | Address | [address] | | | [place] [address] | + + + | Home Phone | | + + + | Preferred Language | Unknown | + + + | Marital Status | Single | + + + | Taoism Affiliation | CHR | + + + [...] Team Providers + +------+ + | Care Chain Offbearer Name | Role | Phone | + +------+ + | Eve Daugherty MD | PCP | | + +------+ + Encounter Details +--------+ + + + + | Date | Type | Department | Care Team | Description | +--------+ + + + + | 08/30/ | Ball Maker | Pulmonary & | Kate Benjamin, | Pulmonary | | 2019 | | Critical Care | [address] | hypertension (HCC) | | | | Medicine at | [facility] [address] | (Primary Dx) | | | | [facility] | [place], [place] | | | | | [address] | [address] | | | | | [address] [facility] | [phone] | | | | | Pavilion, 3rd Floor | | | | | | [place], [place] | | | | | | [address] | | | | | | [phone] | | | +--------+ + + + [...] Telephone Encounter - Kate Benjamin MD - 08/30/2018 4:01 PM PDTOrders only Electronical ly signed by Kate Benjamin MD at 08/30/2018 4:03 PM PDTdocumented in this encounter Plan of Treatment Not on filedocumented as of this encounter Visit Diagnoses + + | Diagnosis | + + | Pulmonary hypertension (HCC) - Primary Other chronic pulmonary heart diseases | + + documented in this encounter"
--- OUTSIDE RECORDS SUMMARY | ~2019-10-23 | XMS | Encounter Summary ---
Demographics + + + | Address | [address] | | | [place] [address] | + + + | Home Phone [...] Team Providers + +------+ + | Care Buckle Inspector Name | Role | Phone | + +------+ + | Bobbi Jenkins NP | PCP | | + +------+ + Encounter Details +--------+ + + + + | Date | Type | Department | Care Team | Description | +--------+ + + + + | 03/27/ | Pharmacy | Outpatient Retail | | | | 2017 | Visit | Clinic Pharmacy | | | | | | [address] | | | | | | [address] [place], [place] | | | | | | [address] | | | | | | [phone] | | | +--------+ + + + [...]
--- OUTSIDE RECORDS SUMMARY | ~2019-10-23 | XMS | Encounter Summary ---
Demographics + + + | Address | [address] | | | [place] [address] | + + + | Home Phone [...] Author + + + | Author | [facility] | + + + | Organization | [facility] | + + + | Address | Unknown | + + + | Phone | Unavailable | + + + Support + + +---------+ + | Name | Relationship | Address | Phone | + + +---------+ + | Bobbi Oconnell | ECON | Unknown | | + + +---------+ + | Alyssa Henrandez | ECON | Unknown | | + + +---------+ + Care Team Providers + +------+ + | Care Drill Grinder Name | Role | Phone | + +------+ + | Bobbi Jenkins NP | PCP | | + +------+ + Encounter Details +--------+ + + + + | Date | Type | Department | Care Team | Description | +--------+ + + + + | 03/12/ | Document-Sc | Health Information | Other, Faculty | | | 2018 | anned | Services [address] | [phone] | | | | | [address] | | | | | | Mailcode: [id number] | | | | | | [facility] | | | | | | [place], [place] | | | | | | [address] | | | | | | [phone] | | | +--------+ + + + [...] | + +--------+ + + + | RADIOLOGY | | 03/12/2017 | | Results for this | | | | 12:00 AM | | procedure are in the | | | | PST | | results section. | + +--------+ + + + | RADIOLOGY | | 03/12/2017 | | Results for this | | | | 12:00 AM | | procedure are in the | | | | PST | | results section. | + +--------+ + + + documented in this encounter Results RADIOLOGY (03/12/2017 12:00 AM PST) + + + | Narrative | Performed At | + + + | | | + + + RADIOLOGY (03/12/2017 12:00 AM PST) + + + | Narrative | Performed At | + + + | | | + + + documented in this encounter Visit Diagnoses Not on filedocumented in this encounter"
--- OUTSIDE RECORDS SUMMARY | ~2019-10-23 | XMS | Encounter Summary ---
Demographics + + + | Address | [address] | | | [place] [address] | + + + | Home Phone [...] Author + + + | Author | [facility] | + + + | Organization | [facility] | + + + | [...] Team Providers + +------+ + | Care Hub Inventory Specialist Name | Role | Phone | + +------+ + | Bobbi Jenkins NP | PCP | | + +------+ + Encounter Details +--------+ + + + + | Date | Type | Department | Care Team | Description | +--------+ + + + + | 03/24/ | Pharmacy | Outpatient Retail | | | | 2017 | Visit | Clinic Pharmacy | | | | | | [address] | | | | | | [address] [place], [place] | | | | | | [address] | | | | | | [phone] | | | +--------+ + + + [...]
--- OUTSIDE RECORDS SUMMARY | ~2019-10-23 | XMS | Encounter Summary ---
Demographics + + + | Address | [address] | | | [place] [address] | + + + | Home Phone [...] Team Providers + +------+ + | Care Child Day Care Provider Name | Role | Phone | + [...] Michael | | | | | at [facility] | [facility] | | | | | [address] | [place] [address] | | | | | [address] | | | | | | [place], [address] [place] [address] | | | | | | [place], [place] | | | | | | [address] | | | | | | [phone] | | | +--------+ + + + [...] for this | | | e | 1:48 PM | hypertension (HCC) | procedure are in the | | | | PST | | results section. | + +--------+ + + + documented in this encounter Results 12 LEAD ECG (03/23/2019 1:48 PM PST) + + + + + + | Component | Value | Ref Range | Performed | Pathologist | | | | | At | Signature | + + + + + + | VENTRICULAR | 85 | bpm | [facility] | | | RATE | | | OF | | | | | | CARDIOLOGY | | + + + + + + | ATRIAL RATE | 85 | ms | [facility] | | | | | | OF | | | | | | CARDIOLOGY | | + + + + + + | P-R | 152 | ms | [facility] | | | INTERVAL | | | OF | | | | | | CARDIOLOGY | | + + + + + + | P AXIS | 64 | deg | [facility] | | | | | | OF | | | | | | CARDIOLOGY | | + + + + + + | QRS | 88 | ms | [facility] | | | DURATION | | | OF | | | | | | CARDIOLOGY | | + + + + + + | QT | 395 | ms | [facility] | | | | | | OF | | | | | | CARDIOLOGY | | + + + + + + | DAILY-JAYDON | 469 | ms | [facility] | | | | | | OF | | | | | | CARDIOLOGY | | + + + + + + | R AXIS | -26 | deg | [facility] | | | | | | OF | | | | | | CARDIOLOGY | | + + + + + + | T AXIS | 73 | deg | [facility] | | [...] | | OF | | | | 03-26-2019 09:09:26 | | CARDIOLOGY | | + + [...] + + | [facility] | [address] | [place], [place] | | | CARDIOLOGY | [facility] | [address] | | + + + + + documented in this encounter Visit Diagnoses Not on filedocumented in this encounter"
--- OUTSIDE RECORDS SUMMARY | ~2019-10-23 | XMS | Encounter Summary ---
Demographics + + + | Address | [address] | | | [place] [address] | + + + | Home Phone | | + + + | Preferred Language | Unknown | + + + | Marital Status | Single | + + + | Latter Day Affiliation | CHR | + + + | Race | White | + + + | Ethnic Group | Not or | + + + Author + + + | Author | [facility] | + + + | Organization | [facility] | + + + | Address [...] Team Providers + +------+ + | Care Javascript Web Developer Name | Role | Phone | + +------+ + | Bobbi Jenkins NP | PCP | | + +------+ + Encounter Details +--------+ + + + + | Date | Type | Department | Care Team | Description | +--------+ + + + + | 03/23/ | Hospital | Medicine | Tech, Pfl Adult | | | 2020 | Encounter | Specialties at [facility] | Clinic [address] | | | | | [address] | [address] | | | | | [address] [facility] | [place] [address] | | | | | [address] | | | | | | [place], [place] | | | | | | [address] | | | | | | [phone] | | | +--------+ + + + [...] mouth | 118 mL | 0 | //20 | | | dextromethorphan-gua | every four [...] + + + | PULMONARY | Site[facility] | [facility] | | | INTERPRETAT | [facility] | | SPECIAL | | | ION | [facility] | | DIAGNOSTICS | | | | ,[place], [place], | | - | | | | [address]HC: [id number] | | PULMONARY | | | | Name: GEMA POLLACK | | FUNCTION | | | | SVisit Date: 03/23/2019 | | | | | | Second ID: | | | | | | [id number]: | | | | | | Zita Izaguirre: 54 | | | | | | : 1965 Sex: | | | | | | Female Race: | | | | | | CaucasianHeight: 164.50 | | | | | | Cms Weight: 81.10 | | | | | | Kgs BSA: 1.88Order | | | | | | IDs: [id number] | | | | | | Test(s): [...] | | | | | | mildlyreduced (6553-2178 | | | | | | feet). [...] [facility] | [address] | [place], [place] | | | DIAGNOSTICS - | [place] | [address] | | | PULMONARY FUNCTION | | | | + + + + + documented in this encounter Visit Diagnoses + + | Diagnosis | + + | Pulmonary hypertension (HCC) Other chronic pulmonary heart diseases | + + documented in this encounter"
--- OUTSIDE RECORDS SUMMARY | ~2019-10-23 | XMS | Encounter Summary ---
Demographics + + + | Address | [address] | | | [place] [address] | + + + | Home Phone | | + + + | Preferred Language | Unknown | + + + | Marital Status | Single | + + + | Confucianism Affiliation | CHR | + + + [...] Team Providers + +------+ + | Care Regional Planner Name | Role | Phone | + +------+ + | Eve Daugherty MD | PCP | | + +------+ + Reason for Visit + + + | Reason | Comments | + + + | Request For Forms | enrollment forms for Ric sent to pt to complete and send | | | back | + + + Encounter Details +--------+ + + + + | Date | Type | Department | Care Team | Description | +--------+ + + + + | 11/08/ | Documentati | Pulmonary & | Mya Hall MD | Request For Forms | | 2018 | on | Critical Care | [address] | (enrollment forms | | | | Medicine at | [facility], | for Let[place] sent to | | | | [address] | [place] [address] | pt to complete and | | | | [address] | [phone] | send back) | | | | [address] [facility] | | | | | | [address], [address]rd Floor | | | | | | [place], [place] | | | | | | [address] | | | | | | [phone] | | | +--------+ + + + [...] Telephone Encounter - Sydni Saldana MA - 11/08/2017 9:19 AM PDTEnrollment form emailed to patient asking that she fill in her portion and email back to me. documented in this encou nter Plan of Treatment Not on filedocumented as of this encounter Visit Diagnoses Not on filedocumented in this encounter"
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
--- OUTSIDE RECORDS SUMMARY | ~2019-10-23 | XMS | Encounter Summary ---
Demographics + + + | Address | [address] | | | [place] [address] | + + + | Home Phone [...] Team Providers + +------+ + | Care Communication Specialist Name | Role | Phone | + +------+ + | Bobbi Jenkins NP | PCP | | + +------+ + Reason for Visit + +--------+ + | Reason | Onset | Comments | | | Date | | + +--------+ + | Transport problems | 08/23/ | | | | 2019 | | + +--------+ + Encounter Details +--------+ + + + + | Date | Type | Department | Care Team | Description | +--------+ + + + + | 08/23/ | Telephone | Pulmonary & | Kate Benjamin, | Transport problems | | 2018 | | Critical Care | [address] | | | | | Medicine at | [facility] | | | | | [facility] | [place], [place] | | | | | [address] | [address] | | | | | [address] | [phone] | | | | | [place], [address] [place] [address] | | | | | | [place], [place] | | | | | | [address] | | | | | | [phone] | | | +--------+ + + + [...] Telephone Encounter - Mark Murphy MA - 08/31/2018 10:00 AM PDTAttempted to call patient to advise that labs have been sent but voicemail box has not been set up and unable to reach patient. elephone Encounter - Mark Aguirre MA - 08/31/2018 9:58 AM PDTFormatting of this note might be different from th jennifer greer. Kate Benjamin MD You 17 hours ago (4:03 PM) Maximo Flores, I placed external lab orders for this patient, would you mind printing them o ut and faxing the orders to the hospital in [place] and letting the patient know that the labs have been ordered. Thanks! Tammi Osborne comment [facility] [id number] signed by Mark Murphy MA at 08/31/2018 9:59 AM PDTTelep damir Encounter - Mark Murphy MA - 08/30/2018 3:44 PM PDTSandfigueroa is needing to cancel appt but would like lab orders so she can have results prior to next appt Patient would like lab [facility] [place] [facility]. Electronicall y signed by Mark Murphy MA at 08/30/2018 3:45 PM PDTTelephone Encounter - Alma Delia Mann - 08/23/2018 11:28 AM PDTSandfigueroa called waiting information on how to set up medical transp ortation for her upcoming appointment and who to call. I let her know our social services technician, Veronica Vergara would probably be her best resource. I left a voicemail for Genoveva with patient' s info for a call back. documented in this encounter Plan of Treatment Not on filedocumented as of this encounter Visit Diagnoses Not on filedocumented in this encounter"
--- OUTSIDE RECORDS SUMMARY | ~2019-10-23 | XMS | Encounter Summary ---
Demographics + + + | Address | [address] | | | [place] [address] | + + + | Home Phone | | + + + | Preferred Language | Unknown | + + + | Marital Status | Single | + + + | Rastafarian Affiliation | CHR | + + + [...] Team Providers + +------+ + | Care Training Development Director Name | Role | Phone | [...] | | | [address] | [facility] [address] | | | | | Loop [address] | [place] [address] | | | | | [address] | | | | | | [place], [place] | | | | | | [address] | | | | | | [phone] | | | +--------+ + + + [...] | e | hypertension (HCC) | starting 03/23/2019 | | | | | | until 03/23/2019 | + + +--------+ + + documented as of this encounter Visit Diagnoses + + | Diagnosis | + + | Pulmonary hypertension (HCC) Other chronic pulmonary heart diseases | + + documented in this encounter"
--- OUTSIDE RECORDS SUMMARY | ~2019-10-23 | XMS | Encounter Summary ---
Demographics + + + | Address | [address] | | | [place] [address] | + + + | Home Phone | | + + + | Preferred Language | Unknown | + + + | Marital Status | Single | + + + | Jain Affiliation | CHR | + + + [...] Team Providers + +------+ + | Care Domestic Cleaner Name | Role | Phone | + +------+ + | Bobbi Jenkins NP | PCP | | + +------+ + Reason for Visit + +--------+ + | Reason | Onset | Comments | | | Date | | + +--------+ + | Prior Authorization | 03/01/ | | | Request - Medication | 2020 | | + +--------+ + Encounter Details +--------+ + + + + | Date | Type | Department | Care Team | Description | +--------+ + + + + | 03/01/ | Telephone | Pulmonary & | Kate Benjamin, | Prior Authorization | | 2019 | | Critical Care | MD Chris Rodriguez | Request - Medication | | | | Medicine at | [facility] | | | | | [facility] | [place], [place] | | | | | [address] | [address] | | | | | [facility] | [phone] | | | | | Donna, [address] [place] [address] | | | | | | [place], [place] | | | | | | [address] | | | | | | [phone] | | | +--------+ + + + [...] Telephone Encounter - Raghavendra Rodriguez MA - 03/01/2019 2:32 PM PSTPA request has been sta rted. elephone Hanane hart - Riri Ochoa - 03/01/2019 10:41 AM [facility] called to see if a fax requesting a PA for the [employer] was received. PAS provided [phone] fax number & advised would document it is being resent.Electronically signed by Riri Ochoa at 10:42 AM PSTdocumented in this encounter Plan of Treatment Not on filedocumented as of this encounter Visit Diagnoses Not on filedocumented in this encounter"
--- OUTSIDE RECORDS SUMMARY | ~2019-10-23 | XMS | Encounter Summary ---
Demographics + + + | Address | [address] | | | [place] [address] | + + + | Home Phone [...] Author + + + | Author | [facility] | + + + | Organization | [facility] | + + + | Address | [...] Team Providers + +------+ + | Care Advanced Developer Name | Role | Phone | + +------+ + | Eve Daugherty MD | PCP | | + +------+ + Reason for Visit + +--------+ + | Reason | Onset | Comments | | | Date | | + +--------+ + | Medication Question | 01/10/ | Requesting Antibiotic | | | 2017 | | + +--------+ + Encounter Details +--------+ + + + + | Date | Type | Department | Care Team | Description | +--------+ + + + + | 01/10/ | Telephone | Pulmonary & | Rosangela Hall MD | Medication Question | | 2018 | | Critical Care | [id number] | (Requesting | | | | Medicine at | [facility], | Antibiotic) | | | | [facility] | [place] [address] | | | | | [address] | [phone] | | | | | [facility] | | | | | | Donna, [address] [place] [address] | | | | | | [place], [place] | | | | | | [address] | | | | | | [phone] | | | +--------+ + + + [...] Telephone Encounter - Sydni Saldana MA - 01/12/2018 9:33 AM PSTI called and left msg ortiz ng her know that Rx has been sent in to pharmacy. Electronically signed by CLAIR Samuels 01/12/2018 9:33 AM PSTAddendum Note - Rosangela Hall MD - 01/11/2018 12:36 PM PST Addended by: ROSANGELA HALL MD on: 01/11/2018 12:36 PM Modules accepted: Orders elephone Encounter - Rosangela Reyes MD - 01/11/2018 12:34 PM PSTPatient prescribed doxycycline X 7 days. Patient to contact office if change or worsening or go to ED. elephone Encounter - Mindi Irwin MA - 01/10/2018 2:17 PM PSTReceived a call from the patient who stated that she has a sinus infection and has been running a fever of right around 101 since Wednesday. Patient is requesting Dr. Hall to send in an antibiotic for her to the [facility] in [place]. Patient stated that she tried to go through her PCP's office but her provider has recently left and she is not able to get i n with another provider any time soon. She just received news today that her mother may not make it through the week and her sister is coming to pick her up so then can go and visit th eir mother. The patient's sister has MS and is immunosuppressed and is not able to be around Ms. Barron while she is running a fever and or sick. The patient is aware that she should be going through her PCP but due to the short time frame and extenuating circumstances surro unding the news of her mother she is hoping that Dr. Hall would be willing to send in a pres cription. documented in this encounter Plan of Treatment Not on filedocumented as of this encounter Visit Diagnoses + + | Diagnosis | + + | Acute non-recurrent sinusitis, unspecified location - Primary | + + documented in this encounter"
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
--- OUTSIDE RECORDS SUMMARY | ~2019-10-23 | XMS | Encounter Summary ---
Demographics + + + | Address | [address] | | | [place] [address] | + + + | Home Phone | | + + + | Preferred Language | Unknown | + + + | Marital Status | Single | + + + | Church Affiliation | CHR | + + + [...] Team Providers + +------+ + | Care Asphalt Paving Machine Operator Name | Role | Phone | + +------+ + | Bobbi Jenkins NP | PCP | | + +------+ + Encounter Details +--------+ + + + + | Date | Type | Department | Care Team | Description | +--------+ + + + + | 12/23/ | Child Care Specialist | Pulmonary & | Kate Benjamin, | Pulmonary | | 2019 | | Critical Care | [address] | hypertension (HCC) | | | | Medicine at | [address] [facility] [address] | (Primary Dx) | | | | [facility] | [place], [place] | | | | | [address] | [address] | | | | | [address] [facility] | [phone] | | | | | [facility], [facility] Floor | | | | | | [place], [place] | | | | | | [address] | | | | | | [phone] | | | +--------+ + + + [...] Function | e | hypertension (HCC) | 12/27/2018, Expires: | | | | | | 12/24/2019 | + + +--------+ + + | NT-PRO BNP | Lab | Routin | Pulmonary | Expected: 12/23/2018 | | | | e | hypertension (HCC) | (Approximate), | | | | | | Expires: 01/23/2020 | + + +--------+ + + | LIVER SET | Lab | Routin | Pulmonary | Expected: 12/23/2018 | | (AST,ALT,BILI | | e | hypertension (HCC) | (Approximate), | | TOTAL,BILI | | | | Expires: 01/23/2020 | | DIRECT,ALK | | | | | | PHOS,ALB,PROT TOTAL) | | | | | + + +--------+ + + | BASIC METABOLIC SET | Lab | Routin | Pulmonary | Expected: 12/23/2018 | | (NA, K, CL, TCO2, | | e | hypertension (HCC) | (Approximate), | | BUN, CR, GLU, CA) | | | | Expires: 01/23/2020 | + + +--------+ + + | CBC, WITH | Lab | Routin | Pulmonary | Expected: 12/23/2018 | | DIFFERENTIAL | | e | hypertension (HCC) | (Approximate), | | | | | | Expires: 01/23/2020 | + + +--------+ + + documented as of this encounter Visit Diagnoses + + | Diagnosis | + + | Pulmonary hypertension (HCC) - Primary Other chronic pulmonary heart diseases | + + documented in this encounter"
--- OUTSIDE RECORDS SUMMARY | ~2019-10-23 | XMS | Encounter Summary ---
Demographics + + + | Address | [address] | | | [place] [address] | + + + | Home Phone [...] Author | [facility] | + + + | Organization | [facility] | + + + | Address | [...] Team Providers + +------+ + | Care Air Cargo Ground Crew Supervisor Name | Role | Phone | + +------+ + | Bobbi Jenkins NP | PCP | | + +------+ + Encounter Details +--------+------+ + + + | Date | Type | Department | Care Team | Description | +--------+------+ + + + | 03/23/ | Lab | Laboratory at [facility] | | Pulmonary | | 2020 | | [address] | | hypertension (HCC) | | | | [facility] | | | | | | [place], 3rd floor | | | | | | [place], [place] | | | | | | [address] | | | | | | [phone] | | | +--------+------+ + + + [...] + | NT-PRO BNP | Routin | 03/23/2019 | Pulmonary | Results for this | | | e | 5:25 PM | hypertension (HCC) | procedure are in the | | | | PST | | results section. | + +--------+ + + + | LIVER SET | Routin | 03/23/2019 | Pulmonary | Results for this | | (AST,ALT,BILI | e | 5:25 PM | hypertension (HCC) | procedure are in the | | TOTAL,BILI | | PST | | results section. | | DIRECT,ALK | | | | | | PHOS,ALB,PROT TOTAL) | | | | | + +--------+ + + + | BASIC METABOLIC SET | Routin | 03/23/2019 | Pulmonary | Results for this | | (NA, K, CL, TCO2, | e | 5:25 PM | hypertension (HCC) | procedure are in the | | BUN, CR, GLU, CA) | | PST | | results section. | + +--------+ + + + | HCG QUAL, URINE | Routin | 03/23/2019 | Pulmonary | Results for this | | | e | 5:25 PM | hypertension (HCC) | procedure are in the | | | | PST | | results section. | + +--------+ + + + documented in this encounter Results HCG QUAL, URINE (03/23/2019 5:25 PM PST) + + + + + [...] | + + + + + | [facility] | [address] | [place] [address] | | | SERVICES, CORE | [address] | | | + + + + + LIVER SET (AST,ALT,BILI TOTAL,BILI DIRECT,ALK PHOS,ALB,PROT TOTAL) (03/23/2019 5:25 PM PST ) + +---------+ + + + | Component | Value | Ref Range | Performed | Pathologist | | | | | At | Signature | + +---------+ + + + | ALBUMIN, | 3.6 | 3.5 - 4.7 g/dL | [facility] [...] +---------+ + + + | BILIRUBIN | 0.1 | 0.0 - 0.3 mg/dL | [facility] | | | DIRECT | | | LABORATORY | | | | | | SERVICES, | | | | | | CORE | | + +---------+ + + + | ALK PHOS | 91 | 42 - 98 U/L | [facility] | | | | | | LABORATORY | | | | | | SERVICES, | | | | | | CORE | | + +---------+ + + + | AST(SGOT) | 12 | <=41 U/L | [facility] | | | | | | LABORATORY | | | | | | SERVICES, | | | | | | CORE | | + +---------+ + + + | ALT (SGPT) | 23 | <=60 U/L | [facility] | | [...] | + +---------+ + + + | GLOBULIN | 4.3 (H) | 2.3 - 3.5 gm/dL | [facility] | | | LVL | | | LABORATORY | | | | | | SERVICES, | | | | | | CORE | | + +---------+ + + + | ALBUMIN/HOUSTON | 0.8 (L) | 0.9 - 2.0 | [facility] | | | BULIN RATIO | | | LABORATORY | | | [...] | + + + + + | [facility] | [address] | [place] [address] | | | SERVICES, CORE | [address] | | | + + + + + BASIC METABOLIC SET (NA, K, CL, TCO2, BUN, CR, GLU, CA) (03/23/2019 5:25 PM PST) + +---------+ + + + | Component | Value | Ref Range | Performed | Pathologist | | | | | At | Signature | + +---------+ + + + | GLUCOSE, | 109 (H) | 70 - 99 mg/dL | [facility] | | | PLASMA | | | LABORATORY | | | (LAB) | | | SERVICES, | | | | | | CORE | | + +---------+ + + + | BUN, PLASMA | 16 | 6 - 20 mg/dL | [facility] | | | (LAB) | | | LABORATORY | | | | | | SERVICES, | | | | | | CORE | | + +---------+ + + + | CREATININE | 0.98 | 0.60 - 1.10 | [facility] | | | PLASMA | | mg/dL | LABORATORY | | | (LAB) | | | SERVICES, | | | | | | CORE | | + +---------+ + + + | EGFR | >60 | >60 mL/min | [facility] | | | - | | | LABORATORY | | | GRENADIAN | | | SERVICES, | | | | | | CORE | | + +---------+ + + + | EGFR NON | 59 (L) | >60 mL/min | [facility] | | | -BRY | | | LABORATORY | | | RICAN | | | SERVICES, | | | | | | CORE | | + +---------+ + + + | SODIUM, | 139 | 136 - 145 | [facility] | | | PLASMA | | mmol/L | LABORATORY | | | (LAB) | | | SERVICES, | | | | | | CORE | | + +---------+ + + + | POTASSIUM, | 3.7 | 3.4 - 5.0 | [facility] | [...] +---------+ + + + | CALCIUM, | 8.9 | 8.6 - 10.2 | [facility] | | | PLASMA | | mg/dL | LABORATORY | | | (LAB) | | | SERVICES, | | | | | | CORE | | + +---------+ + + + | ANION GAP | 9 | 4 - 11 mmol/L | [facility] [...] | + +---------+ + + + | BUN/CREATIN | 16 | 8 - 25 | [facility] | | | INE RATIO | | | LABORATORY | | | [...] MDRD equation recommended by the National | [facility] | | Kidney Disease Education Program. Estimated [...] + | [facility] | [address] | [place] [address] | | | SERVICES, CORE | [address] | | | + + + + + NT-PRO BNP (03/23/2019 5:25 PM PST) + +-------+ + + + | Component | Value | Ref Range | Performed | Pathologist | | | | | At | Signature | + +-------+ + + + | NT-PRO BNP | 78 | <125 pg/mL | [facility] | | [...] + + + + + | [facility] | [address] | [place] [address] | | | SERVICES, CORE | [address] | | | + + + + + documented in this encounter Visit Diagnoses + + | Diagnosis | + + | Pulmonary hypertension (HCC) Other chronic pulmonary heart diseases | + + documented in this encounter"
--- OUTSIDE RECORDS SUMMARY | ~2019-10-23 | XMS | Encounter Summary ---
Demographics + + + | Address | [address] | | | [place] [address] | + + + | Home Phone | | + + + | Preferred Language | Unknown | + + + | Marital Status | Single | + + + | Worship Affiliation | CHR | + + + [...] Team Providers + +------+ + | Care Hydrologic Modeler Name | Role | Phone | + +------+ + | Bobbi Jenkins NP | PCP | | + +------+ + Encounter Details +--------+ + + + + | Date | Type | Department | Care Team | Description | +--------+ + + + + | 11/19/ | Telephone | Pulmonary & | Tereso Singh, | | | 2019 | | Critical Care | [address] | | | | | Medicine at | [facility] | | | | | [facility]icians [address] | [place], [place] | | | | | [address] | [address] | | | | | [address] [facility] | [phone] | | | | | Donna, [facility] Floor | | | | | | [place], [place] | | | | | | [address] | | | | | | [phone] | | | +--------+ + + + [...] this encounter Miscellaneous Notes Telephone Encounter - Tereso Singh MD - 11/19/2018 3:47 PM PDTReceived call from tabatha barton wondering about a [place] prescription. She was discharged yesterday, went to the pharmac y to draft roller picker her discharge meds, was able to obtain them except they did not have a rx for N [place]. Per chart review, she was on it while inpatient and was not prescribed it at discharge. She is understanding and can do without it currently. She says she was previously prescribed it by her rn testing and will discuss it with her new rn testing at their appt next week . She also had her O2 delivered without any issues. She is coughing during the phone call but says she is doing fine. P M PDTdocumented in this encounter Plan of Treatment Not on filedocumented as of this encounter Visit Diagnoses Not on filedocumented in this encounter"
--- OUTSIDE RECORDS SUMMARY | ~2019-10-23 | XMS | Encounter Summary ---
Demographics + + + | Address | [address] | | | [place] [address] | + + + | Home Phone | | + + + | Preferred Language | Unknown | + + + | Marital Status | Single | + + + | Jew Affiliation | CHR | + + + [...] Team Providers + +------+ + | Care Rn Allergy Name | Role | Phone | + +------+ + | Bobbi Jenkins NP | PCP | | + +------+ + Encounter Details +--------+ + + + + | Date | Type | Department | Care Team | Description | +--------+ + + + + | 03/26/ | Pharmacy | Outpatient Retail | | | | 2017 | Visit | [facility] | | | | | | [address] | | | | | | [place], [place] | | | | | | [address] | | | | | | [phone] | | | +--------+ + + + [...]
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
--- OUTSIDE RECORDS SUMMARY | ~2019-10-23 | XMS | Encounter Summary ---
Demographics + + + | Address | [address] | | | [place] [address] | + + + | Home Phone [...] Author + + + | Author | [facility] | + + + | Organization | [facility] | + + + | [...] Team Providers + +------+ + | Care Maintenance And Repair Worker Name | Role | Phone | + +------+ + | Bobbi Jenkins NP | PCP | | + +------+ + Reason for Visit + +--------+ + | Reason | Onset | Comments | | | Date | | + +--------+ + | Medication | 05/20/ | furosemide | | Adjustment | 2018 | | + +--------+ + Encounter Details +--------+ + + + + | Date | Type | Department | Care Team | Description | +--------+ + + + + | 05/20/ | Telephone | Pulmonary & | Mya Hall MD | Medication | | 2018 | | Critical Care | [address] | Adjustment | | | | Medicine at | [address] [place], | (furosemide) | | | | [facility] | [place] [address] | | | | | [address] | [phone] | | | | | [address] [facility] | | | | | | [place], [address] [place] [address] | | | | | | [place], [place] | | | | | | [address] | | | | | | [phone] | | | +--------+ + + + [...] Telephone Encounter - Mindi Irwin MA - 05/20/2017 12:43 PM PDTReceived a page and me ssage from [facility] staff asking that I contact the patient regarding her water retention. Called the patient and received her voicemail, I did not leave a message since I am able to see th at the patient also left a message that was routed directly to Dr. Hall.Electronically selene d by Mindi Irwin MA at 05/20/2017 12:44 PM PDTTelephone Encounter - Cornelia Israel - 018 11:37 AM PDTSamadhu called to report she was in in the ED at [facility] (re cords NOT available via CareEverywhere) She reports she was told her furosemide does was "not high enough" And that she needed to have it increased. Gema can be reached at [phone] (home) documented in this encounter Plan of Treatment Not on filedocumented as of this encounter Visit Diagnoses Not on filedocumented in this encounter
--- OUTSIDE RECORDS SUMMARY | ~2019-10-23 | XMS | Encounter Summary ---
Demographics + + + | Address | [address] | | | [place] [address] | + + + | Home Phone | | + + + | Preferred Language | Unknown | + + + | Marital Status | Single | + + + | Holiness Affiliation | CHR | + + + [...] Team Providers + +------+ + | Care Bilingual Speech Language Pathologist Name | Role | Phone | + +------+ + | Bobbi Jenkins NP | PCP | | + +------+ + Reason for Visit + +--------+ + | Reason | Onset | Comments | | | Date | | + +--------+ + | Refill Request | 07/03/ | | | | 2020 | | + +--------+ + Encounter Details +--------+--------+ + + + | Date | Type | Department | Care Team | Description | +--------+--------+ + + + | 07/03/ | Refill | Pulmonary & | Beth Keith, | Refill Request | | 2019 | | Critical Care | [address] | | | | | Medicine at | [facility] | | | | | [facility] | [place], [place] | | | | | [address] | [address] | | | | | [address] [facility] | [phone] | | | | | Donna, [address] [place] [address] | | | | | | [place], [place] | | | | | | [address] | | | | | | [phone] | | | +--------+--------+ + + + [...] Telephone Encounter - Gianna Worthy MA - 07/04/2019 3:50 PM PDT Requested Prescriptions Pending Prescriptions Disp Refills torsemide 20 mg oral tablet 270 tablet 2 Sig: Take 3 tablets by mouth three times daily. Indications: fluid in the lungs due to ch ronic heart failure documented in this e ncounter Plan of Treatment Not on filedocumented as of this encounter Visit Diagnoses + + | Diagnosis | + + | Chronic right-sided heart failure (HCC) Congestive heart failure, unspecified | + + documented in this encounter"
--- OUTSIDE RECORDS SUMMARY | ~2019-10-23 | XMS | Encounter Summary ---
Demographics + + + | Address | [address] | | | [place] [address] | + + + | Home Phone | | + + + | Preferred Language | Unknown | + + + | Marital Status | Single | + + + | Pentecostalism Affiliation | CHR | + + + | Race | White | + + + | Ethnic Group | Not or | + + + Author + + + | Author | [facility] | + + + | Organization | [facility] | + + + | Address [...] Team Providers + +------+ + | Care Behavior Analyst Name | Role | Phone | + +------+ + | Eve Daugherty MD | PCP | | + +------+ + Reason for Visit + +--------+ + | Reason | Onset | Comments | | | Date | | + +--------+ + | Medication Question | 09/30/ | Sildenafil | | | 2019 | | + +--------+ + | Lab Draw | 09/30/ | | | | 2019 | | + +--------+ + Encounter Details +--------+ + + + + | Date | Type | Department | Care Team | Description | +--------+ + + + + | 09/30/ | Telephone | Pulmonary & | Kate Benjamin, | Medication Question | | 2019 | | Critical Care | [address] | (Sildenafil); Lab | | | | Medicine at | [facility] [address] | Draw | | | | [facility] | [place], [place] | | | | | [address] | [address] | | | | | [facility] | [phone] | | | | | Donna, [address] [place] [address] | | | | | | [place], [place] | | | | | | [address] | | | | | | [phone] | | | +--------+ + + + [...] Telephone Encounter - Kate Benjamin MD - 09/30/2018 4:35 PM PDTI called Ms. Barron to check on her symptoms. She reports that she has not been feeling well. She reports body aches in her joints and he adaches. Her blood pressures in the 80-90/44-50, blood pressure is normally 110/60s. She say s that when her blood pressures are low, she gets a severe headache. Sats are in the high 80 s. No fevers or chills. She just got labs and they were all wnl - K was stable at 4.2, Cr st able at 1.1, hgb stable and WBC normal. She reports that she has been taking her medications every day. She says she has missed jaskaran e of the sildenafil doses because of sleeping (she usually takes at least two doses of the s ildenafil - I encouraged her to try to take all of her doses if possible). She has not misse d a dose of the Letaris. 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 I told her that she should probably be evaluated in the ED. It is unclear to me why she is feeling this way, but with her body aches, I do wonder if she has caught a virus or a cold. I am not sure why her blood pressures are low, she has had no major changes with her medicat ions (she has been on sildenafil for a long time and Letaris for several months) and her Tor semide dose as been the same for a year as well. She was on spironolactone but it was stoppe d because she developed a reaction. I wonder if her low BP has to do with a systemic illness . I discussed this with her and she agreed to get evaluated [facility]. elephone Encounter - Mindi Irwin MA - 09/30/2018 4:19 PM PDTCalled patient to relay the message below f rom Dr. Benjamin. Patient would like to know if the body aches are normal based on her lab work. I advised that I would check with Dr. Benjamin but she may recommend following up with her PCP. Patient stated that she got a new PCP that she is not fond of. Patient also reports that he r O2 sats are about 88 on average and that she has been having low BP for the last four nigh ts around 88/49 and also gets headaches and body aches. Normal BP for her is typically 110/[address] Benjamin at her office but was unsuccessful. I advised the patient that should her BPs continue to be that low that she should seek evaluation from a local urgent c are or ED, and or if she feels that her breathing has become compromised and feels that some thing is not right. Let the patient know that I would follow up with her early next week on Wednesday or Wednesday at the latest. From: Kate Benjamin MD Sent: 09/30/2018 4:10 PM To: CLAIR Main, Her labs look fine. It is ok for her to take an antacid if she is having heartburn. Than ks! elephone Enco unter - Mindi Irwin MA - 09/30/2018 4:05 PM PDTI received a call from the patient as flako if we had reviewed her labs that she had drawn earlier this week at [facility] in [facility] and wanted to know her values. She stated that she is really not feeling well and sh e's been having body aches recently. She wonders if her potassium levels are normal. She als o stated that her sildenafil gives her heartburn that keeps her up at night. She is wanting to know if there's a different medication she can switch to or if it's okay for her to take an antacid. Advised patient that I will check with Dr. Benjamin and follow up with her next week . Her labs are available in care everywhere under [facility]. Routing to Dr. Benjamin to advise.Elec tronically signed by Mindi Irwin MA at 09/30/2018 4:09 PM PDTdocumented in this encou nter Plan of Treatment Not on filedocumented as of this encounter Visit Diagnoses Not on filedocumented in this encounter"
--- OUTSIDE RECORDS SUMMARY | ~2019-10-23 | XMS | Encounter Summary ---
Demographics + + + | Address | [address] | | | [place] [address] | + + + | Home Phone | | + + + | Preferred Language | Unknown | + + + | Marital Status | Single | + + + | Bahai Affiliation | CHR | + + + [...] Team Providers + +------+ + | Care Pulp And Paper Tester Name | Role | Phone | + +------+ + | Eve Daugherty MD | PCP | | + +------+ + Reason for Visit + +--------+ + | Reason | Onset | Comments | | | Date | | + +--------+ + | Prior Authorization | 10/21/ | Ric | | Request - Medication | 2018 | | + +--------+ + Encounter Details +--------+ + + + + | Date | Type | Department | Care Team | Description | +--------+ + + + + | 10/21/ | Telephone | Pulmonary & | Mya Hall MD | Prior Authorization | | 2018 | | Critical Care | [address] | Request - Medication | | | | Medicine at | [facility], | ([facility] ) | | | | [facility] | [place] [address] | | | | | [address] | [phone] | | | | | [facility] | | | | | | [address], [address] Floor | | | | | | [place], [place] | | | | | | [address] | | | | | | [phone] | | | +--------+ + + + [...] Telephone Encounter - Mindi Irwin MA - 10/21/2017 2:[address] Hall initiated PA request for patient's Ambrisentan through covermymeds. documented in this encounter Plan of Treatment Not on filedocumented as of this encounter Visit Diagnoses Not on filedocumented in this encounter"
--- OUTSIDE RECORDS SUMMARY | ~2019-10-23 | XMS | Encounter Summary ---
Demographics + + + | Address | [address] | | | [place] [address] | + + + | Home Phone [...] Author + + + | Author | [facility] | + + + | Organization | [facility] | + + + | Address [...] Team Providers + +------+ + | Care Animal Behaviorist Name | Role | Phone | + +------+ + | Bobbi Jenkins NP | PCP | | + +------+ + Encounter Details +--------+ + + + + | Date | Type | Department | Care Team | Description | +--------+ + + + + | 03/23/ | Pharmacy | Outpatient [facility] | | | | 2017 | Visit | [facility] | | | | | | [address] | | | | | | [address] [place], [place] | | | | | | [address] | | | | | | [phone] | | | +--------+ + + + [...]
--- OUTSIDE RECORDS SUMMARY | ~2019-10-23 | XMS | Encounter Summary ---
Demographics + + + | Address | [address] | | | [place] [address] | + + + | Home Phone [...] Author + + + | Author | [facility] | + + + | Organization | [facility] | + + + | Address [...] Team Providers + +------+ + | Care Patient Insurance Clerk Name | Role | Phone | + +------+ + | Eve Daugherty MD | PCP | | + +------+ + Encounter Details +--------+ + + + + | Date | Type | Department | Care Team | Description | +--------+ + + + + | 12/06/ | Documentati | Pulmonary & | Mya Hall MD | | | 2018 | on | Critical Care | [address] | | | | | Medicine at [facility], | | | | | [facility] | [place] [address] | | | | | [address] | [phone] | | | | | [facility] | | | | | | [place], [address] | | | | | | [place], [place] | | | | | | [address] | | | | | | [phone] | | | +--------+ + + + [...]
--- OUTSIDE RECORDS SUMMARY | ~2019-10-23 | XMS | Encounter Summary ---
Demographics + + + | Address | [address] | | | [place] [address] | + + + | Home Phone | | + + + | Preferred Language | Unknown | + + + | Marital Status | Single | + + + | Yazidism Affiliation | CHR | + + + [...] Team Providers + +------+ + | Care Associate Professor Of Medicine Name | Role | Phone | + +------+ + | Eve Daugherty MD | PCP | | + +------+ + Encounter Details +--------+ + + + + | Date | Type | Department | Care Team | Description | +--------+ + + + + | 12/13/ | Documentati | Pulmonary & | Mya Hall MD | | | 2018 | on | Critical Care | [address] | | | | | Medicine at [facility], | | | | | [facility] [place] | [place] [address] | | | | | [address] | [phone] | | | | | [facility] | | | | | | [place], [address] | | | | | | [place], [place] | | | | | | [address] | | | | | | [phone] | | | +--------+ + + + [...]
--- OUTSIDE RECORDS SUMMARY | ~2019-10-23 | XMS | Encounter Summary ---
Demographics + + + | Address | [address] | | | [place] [address] | + + + | Home Phone [...] + + | Author | [facility] | + + + | Organization | [facility] | + + + | Address | [...] Team Providers + +------+ + | Care Pattern Chain Builder Name | Role | Phone | + [...] Closed | | Pulmonary | Diagnoses | Cassidy, | Pul Faculty | | | | Disease | Pulmonary | Kate Amato, | 3rd Ppv | | | | | hypertension | MD [address] | [address] | | | | | ([facility]LY [facility]) | [facility] | [address] | | | | | Procedures | [address] | Physician's | | | | | TRANSTHORACI | [place], [place] | Pavilion, | | | | | C | [address] | 3rd Floor | | | | | ECHOCARDIOGR | Phone: | [place], [place] | | | | | AM, ADULT | [phone] | [address] | | | | | [place] TTE | Fax: | Phone: | | | | | W/DPPLR, | [phone] | [phone] | | | | | COMP | | Fax: | | | | | | | [phone] | +--------+--------+ + + + + Encounter Details +--------+ + + + + | Date | Type | Department | Care Team | Description | +--------+ + + + + | 03/23/ | Hospital | Cardiac | | | | 2020 | Encounter | Non-Invasive Testing | | | | | | at [facility] | | | | | | [address] | | | | | | [address] | | | | | | [facility] | | | | | | floor [place], [place] | | | | | | [address] | | | | | | [phone] | | | +--------+ + + + [...] + documented as of this encounter Progress Eliana Jones - 03/23/2019 7:30 AM PSTTransthoracic echocardiogram completed. Final report to follow. documented in this encounter Plan of Treatment + +------+--------+ + + | Name | Type | Priori | Associated Diagnoses | Order Schedule | | | | ty | | | + +------+--------+ + + | TRANSTHORACIC | ECG | Routin | Pulmonary | Ordered: 03/23/2019 | | ECHOCARDIOGRAM, | | e | hypertension (HCC) | | | ADULT | | | | | + +------+--------+ + + documented as of this encounter Procedures + +--------+ + + + | Procedure Name | Priori | Date/Time | Associated Diagnosis | Comments | | | ty | | | | + +--------+ + + + | TRANSTHORACIC | Routin | 03/23/2019 | Pulmonary | Results for this | | ECHOCARDIOGRAM, | e | 7:34 AM | hypertension (HCC) | procedure are in the | | ADULT | | PST | | results section. | + +--------+ + + + documented in this encounter Results TRANSTHORACIC ECHOCARDIOGRAM, ADULT (03/23/2019 7:34 AM PST) + + + + + + | Component | Value | Ref Range | Performed | Pathologist | | | | | At | Signature | + + + + + + | AOV VMN | 3.4 | | [facility] | | | (AORTIC | | | OF | | | VALVE) | | | CARDIOLOGY | | + + + + + + | BIPLANE, EF | 63 | | [facility] | | | | | | OF | | | | | | CARDIOLOGY | | + + + + + + | EJECTION | 60 to 65 | | [facility] | | | FRACTION | | | OF | | | | | | CARDIOLOGY | | + + + + + + | LA | 2.1 | | [facility] | | | DIMENSION | | | OF | | | | | | CARDIOLOGY | | + + + + + + | LVIDD | 4.8 | | [facility] | | | | | | OF | | | | | | CARDIOLOGY | | + + + + + + | MV A VMAX | 1.0 | | [facility] | | | | | | OF | | | | | | CARDIOLOGY | | + + + + + + | MV E? | 0.1 | | [facility] | | | | | | OF | | | | | | CARDIOLOGY | | + + + + + + | MV E VMAX | 0.7 | | [facility] | | | | | | OF | | | | | | CARDIOLOGY | | + + + + + + | MV E/E' | 9.3 | | [facility] | | | (MITRAL | | | OF | | | VALVE) | | | CARDIOLOGY | | + + + + + + | MITRAL | 12.4 | | [facility] | | | ANNULUS | | | OF | | | MEDIAL E/E" | | | CARDIOLOGY | | | (TISSUE | | | | | | DOPPLER) | | | | | + + + + + + | RVSP | 57 | | [facility] | | | | | | OF | | | | | | CARDIOLOGY | | + + + + + + | RV TAPSE | 1.4 | | [facility] | | | | | | OF | | | | | | CARDIOLOGY | | + + + + + + | RV TDI S? | 14.0 | | [facility] | | | | | | OF | | | | | | CARDIOLOGY | | + + + + + + | TR VMAX | 3.7 | | [facility] | | | (TRICUSPID | | | OF | | | VALVE) | | | CARDIOLOGY | | + [...] Performed At | + + + | [facility] | [facility] | | [facility] Adult Echocardiography Laboratory [address] | CARDIOLOGY | | [place], [place] [address] Ph: | | | Pt Name: GEMA BARRON | | | Study Date/Time 03/23/2019 / 7:34:07 AMMRN: [id number] | | | Most recent prior: 11/15/2018Acc #: [id number] | | | No. previous echos: 3DOB: 1965 54 years Heart | | | Rate: 94 bpmHeight: 64.0 in Blood | | | Pressure: 115/74 mm/HgWeight: 190.0 lb | | | Gender: FBSA: 1.91 m | | | Order ID: [id number] Study | | | Location: OPSonographer: Eliana Gomez RDReferring Provider: ROSANGELA | | | KHANModalities Performed: 2D, Color flow, Spectral Doppler.Study | | | Quality: Good.Exam Indication: CardiomyopathyHistory: 53 y.o. 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 Patient history has been | | | obtained from the [facility] Transthoracic Echocardiographic Report | | | + | | | ---------+ Final Impressions: | | | | | | | | | | | | | | | 1. The left ventricular size is normal. | | | 2. The LV function is | | | normal. | | | 3. RV cavity size is moderately enlarged. RV global | | | systolic function is mildly reduced. The estimated right | | | ventricular systolic pressure is moderately elevated | | | (RVSP = 57.4 mmHg). | | | 4. Compared to the most recent exam dated 11/15/2018, the | | | LVEF has improved. | | | | | | + | | | + Description of Findings: Cardiac Rhythm: Normal sinus | | | rhythm.Left Ventricle: The left ventricular size is normal. Visually | | | estimated left ventricular ejection fraction is 60 - 65%. The global | | | longitudinal strain is -14.3 %. There is no left ventricular | | | hypertrophy. The interventricular septum is flattened in systole | | | consistent with right ventricular pressure overload. The LV diastolic | | | filling pattern has impaired relaxation. The ejection fraction is 63.4 | | | % as measured by Rosa's biplane method. The LV function is | | | normal.Left Ventricular Wall Motion: Left ventricular systolic | | | thickening is normal in all segments.Atria: Left atrial size is | | | normal. Thickened atrial septum; possibly lipomatous. Mildly enlarged | | | right atrium.Right Ventricle: Right ventricular cavity size is | | | moderately enlarged. The RV global systolic function is mildly | | | reduced. TAPSE measures 1.4cm. The RV TDI s' velocity is | | | 14.0cm/sec.Aortic Valve: The aortic valve is trileaflet and normal in | | | structure and function. No indication of aortic valve regurgitation. | | | No aortic stenosis.Mitral Valve: The mitral valve is structurally | | | normal. No evidence of mitral valve stenosis. No evidence of mitral | | | valve regurgitation.Tricuspid Valve: The tricuspid valve is | | | structurally normal. Trace tricuspid regurgitation. The tricuspid | | | regurgitant velocity is 3.69 m/s, and with an assumed right atrial | | | pressure of 3 mmHg, the estimated right ventricular systolic pressure | | | is moderately elevated at 57.4 mmHg.Pulmonic Valve: The pulmonic valve | | | is structurally normal. No indication of pulmonary valve | | | regurgitation.Aorta: Visualized portions of the ascending aorta and | | | aortic root appear normal.Venous: Inferior vena cava is normal with | | | normal inspiratory collapse.Pericardium: No pericardial effusion is | | | seen.2D Measurements Doppler Measurements | | | 2D NL Values Aortic MitralLVID(d) | | | 4.76 (3.5-5.7cm) Max Rainer 1.26 Peak E 0.74 | | | cm m/s | | | m/sLVID(s) 3.44 Mean grad 3.4 Peak A | | | 1.01 cm | | | mmHg m/sIVS(d) 0.60 (0.6-1.1cm) LVOT Rainer | | | 1.01 E/A Ratio 0.74 cm | | | m/sLVPW(d) 0.73 (0.6-1.1cm) LVOT VTI 0.188 | | | TDI (E/e') 9.3 cm | | | mLA A/Ps 2D 2.13 (2.7-3.9cm) LVOT Diam 2.08 MV mn gd | | | cm cmLA vol A/L 13.8 | | | (16-34) LVOT SV 33.2 MR EROindex ml/m | | | indexed ml/m | | | LA vol MOD 24.9 (40-73ml) Tricuspid PulmonicBP | | | ml TR Vmax 3.69 PV Vmax 0.9LA | | | vol MOD 13.0 (16-34) m/s | | | m/sindex ml/m | | | RA Press 3 RVOT VTI 11.1LVEDV | | | 41.86 mmHg | | | cmindex ml/m | | | RVSP 57 PV mn gdBiplane EF 63.4 % | | | mmHgGLS % -14.3 | | | % Aorta: | | | Index: Ao Sinus 2.72 | | | (2.1-3.5cm) | | | cm Asc Ao 2.86 | | | (prox) cmEvaluation of | | | chamber size and geometry is accomplished through the incorporation of | | | linear, volumetric, and indexed values Report electronically signed | | | by: [id number] Joshua Harmon MD (03/23/2019, 1:56:42 PM)Fellow(s) | | | participating in diagnosis: Rajiv Covington; Final | | |GLS % -14.3 | | | % Aorta: Index: | | | Ao Sinus 2.72 (2.1-3.5cm) | | | cm | | | Asc Ao 2.86 | | | (prox) cm | | |Evaluation of chamber size and geometry is accomplished through the incorporation of | | |linear, volumetric, and indexed values | | | | | |Report electronically signed by: [id number] Joshua Harmon MD (03/23/2019, 1:56:42 PM) | | |Fellow(s) participating in diagnosis: Rajiv Covington; | | | | | | | | | | | | Final | | + + + + + | Procedure Note | + + | Interface, Cardiology Results - 03/23/2019 1:56 PM [facility] | | [facility] Echocardiography Laboratory [address] [place] [address] | | [place], [place] [address] Pt Name: GEMA Hughes | | JAKI Study Date/Time 03/23/2019 / 7:34:07 AMMRN: [id number] Most | | recent prior: 11/15/2018Acc #: [id number] No. previous echos: 3DOB: | | 1965 54 years Heart Rate: 94 bpmHeight: 64.0 in Blood | | Pressure: 115/74 mm/HgWeight: 190.0 lb Gender: FBSA: | | 1.91 m | | Order ID: [id number] Study Location: OPSonographer: Eliana Gomez | | RDCSReferring Provider: ROSANGELA Bolton Performed: 2D, Color flow, Spectral | | Doppler.Study Quality: Good.Exam Indication: CardiomyopathyHistory: 53 y.o. 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 Patient history has been obtained from the EHR Transthoracic | | Echocardiographic | | Report+ + | | Final Impressions: | | | | 1. The left ventricular | | size is normal. 2. The LV function is normal. | | 3. RV cavity size is moderately | | enlarged. RV global systolic function is mildly reduced. The estimated right | | ventricular systolic pressure is moderately elevated (RVSP = 57.4 mmHg). | | 4. Compared to the most recent exam dated | | 11/15/2018, the LVEF has improved. | | | | + + | | Description of Findings: Cardiac Rhythm: Normal sinus rhythm.Left Ventricle: The left | | ventricular size is normal. Visually estimated left ventricular ejection fraction is 60 | | - 65%. The global longitudinal strain is -14.3 %. There is no left ventricular | | hypertrophy. The interventricular septum is flattened in systole consistent with right | | ventricular pressure overload. The LV diastolic filling pattern has impaired relaxation. | | The ejection fraction is 63.4 % as measured by Rosa's biplane method. The LV | | function is normal.Left Ventricular Wall Motion: Left ventricular systolic thickening is | | normal in all segments.Atria: Left atrial size is normal. Thickened atrial septum; | | possibly lipomatous. Mildly enlarged right atrium.Right Ventricle: Right ventricular | | cavity size is moderately enlarged. The RV global systolic function is mildly reduced. | | TAPSE measures 1.4cm. The RV TDI s' velocity is 14.0cm/sec.Aortic Valve: The aortic | | valve is trileaflet and normal in structure and function. No indication of aortic valve | | regurgitation. No aortic stenosis.Mitral Valve: The mitral valve is structurally normal. | | No evidence of mitral valve stenosis. No evidence of mitral valve | | regurgitation.Tricuspid Valve: The tricuspid valve is structurally normal. Trace | | tricuspid regurgitation. The tricuspid regurgitant velocity is 3.69 m/s, and with an | | assumed right atrial pressure of 3 mmHg, the estimated right ventricular systolic | | pressure is moderately elevated at 57.4 mmHg.Pulmonic Valve: The pulmonic valve is | | structurally normal. No indication of pulmonary valve regurgitation.Aorta: Visualized | | portions of the ascending aorta and aortic root appear normal.Venous: Inferior vena cava | | is normal with normal inspiratory collapse.Pericardium: No pericardial effusion is | | seen.2D Measurements Doppler Measurements 2D NL Values | | Aortic MitralLVID(d) 4.76 (3.5-5.7cm) Max Rainer 1.26 Peak E 0.74 | | cm m/s m/sLVID(s) 3.44 | | Mean grad 3.4 Peak A 1.01 cm mmHg | | m/sIVS(d) 0.60 (0.6-1.1cm) LVOT Rainer 1.01 E/A Ratio 0.74 cm | | m/sLVPW(d) 0.73 (0.6-1.1cm) LVOT VTI 0.188 TDI (E/e') 9.3 | | cm mLA A/Ps 2D 2.13 (2.7-3.9cm) LVOT Diam 2.08 MV mn | | gd cm cmLA vol A/L 13.8 (16-34) LVOT SV 33.2 | | MR EROindex ml/m | | indexed ml/m | | LA vol MOD 24.9 (40-73ml) Tricuspid PulmonicBP ml TR | | Vmax 3.69 PV Vmax 0.9LA vol MOD 13.0 (16-34) m/s | | m/sindex ml/m | | RA Press 3 RVOT VTI 11.1LVEDV 41.86 | | mmHg cmindex ml/m | | RVSP 57 PV mn gdBiplane EF 63.4 % mmHgGLS | | % -14.3 % Aorta: Index: | | Ao Sinus 2.72 (2.1-3.5cm) cm | | Asc Ao 2.86 (prox) | | cmEvaluation of chamber size and geometry is accomplished through the incorporation of | | linear, volumetric, and indexed values Report electronically signed by: [id number] Joshua | | Eden VAZQUEZ (03/23/2019, 1:56:42 PM)Fellow(s) participating in diagnosis: Rajiv Covington; | | Final | |Pericardium: No pericardial effusion is seen. | |2D Measurements Doppler Measurements | | | | 2D NL Values Aortic Mitral | |LVID(d) 4.76 (3.5-5.7cm) Max Rainer 1.26 Peak E 0.74 | | cm m/s m/s | |LVID(s) 3.44 Mean grad 3.4 Peak A 1.01 | | cm mmHg m/s | |IVS(d) 0.60 (0.6-1.1cm) LVOT Rainer 1.01 E/A Ratio 0.74 | | cm m/s | |LVPW(d) 0.73 (0.6-1.1cm) LVOT VTI 0.188 TDI (E/e') 9.3 | | cm m | |LA A/Ps 2D 2.13 (2.7-3.9cm) LVOT Diam 2.08 MV mn gd | | cm cm | |LA vol A/L 13.8 (16-34) LVOT SV 33.2 MR ERO | |index ml/m indexed ml/m | |LA vol MOD 24.9 (40-73ml) Tricuspid Pulmonic | |BP ml TR Vmax 3.69 PV Vmax 0.9 | |LA vol MOD 13.0 (16-34) m/s m/s | |index ml/m RA Press 3 RVOT VTI 11.1 | |LVEDV 41.86 mmHg cm | |index ml/m RVSP 57 PV mn gd | |Biplane EF 63.4 % mmHg | |GLS % -14.3 | | % Aorta: Index: | | Ao Sinus 2.72 (2.1-3.5cm) | | cm | | Asc Ao 2.86 | | (prox) cm | |Evaluation of chamber size and geometry is accomplished through the incorporation of | |linear, volumetric, and indexed values | | | |Report electronically signed by: [id number] Joshua Harmon MD (03/23/2019, 1:56:42 PM) | |Fellow(s) participating in diagnosis: Rajiv Covington; | | | | | | | | Final | + + + + + + + | Performing | Address | City/State/Zipcode | Phone Number | | Organization | | | | + + + + + | [facility] | [address] | [place], [place] | | | CARDIOLOGY | [address] | [address] | | + + + + + documented in this encounter Visit Diagnoses + + | Diagnosis | + + | Pulmonary hypertension (HCC) Other chronic pulmonary heart diseases | + + documented in this encounter
--- OUTSIDE RECORDS SUMMARY | ~2019-10-23 | XMS | Encounter Summary ---
Demographics + + + | Address | [address] | | | [place] [address] | + + + | Home Phone [...] Phone | + + +---------+ + | Bobib Oconnell | ECON | Unknown | | + + +---------+ + | Alyssa Hernandez | ECON | Unknown | | + + +---------+ + Care Team Providers + +------+ + | Care Latin Teacher Name | Role | Phone | + +------+ + | Bobbi Jenkins NP | PCP | | + +------+ + Reason for Visit + +--------+ + | Reason | Onset | Comments | | | Date | | + +--------+ + | Lab Order | 08/20/ | Fax request | | | 2020 | | + +--------+ + | Lab Order | 08/24/ | | | | 2020 | | + +--------+ + Encounter Details +--------+ + + + + | Date | Type | Department | Care Team | Description | +--------+ + + + + | 08/20/ | Telephone | Pulmonary & | Beth Keith, | Lab Order (Fax | | 2019 | | Critical Care | [address] | request); Lab Order | | | | Medicine at | [facility] | | | | | [facility] | [place], [place] | | | | | [address] | [address] | | | | | [address] | [phone] | | | | | Pavilion, [facility] Floor | | | | | | [place], [place] | | | | | | [address] | | | | | | [phone] | | | +--------+ + + + [...] this encounter Miscellaneous Notes Telephone Encounter - Miguel Boss MA - 08/25/2019 12:17 PM PDTSpoke with Anibal at [facility] and she needed the following lab orders faxed to [phone]: CBC, Liver Set, BNP, & BMP Placed lab orders and faxed. Labs already drawn, per verbal order placed over the phone wit h provider. ddendum Note - Miguel Watkins MA - 08/25/2019 12:15 PM PDT Addended by: MIGUEL BOSS on: 08/25/2019 12:15 PM Modules accepted: Orders elephone Holly Mejia - 08/25/2019 10:27 AM PDTINBOUND CALL DATE: 08/25/19 PATIENT: Gema Barron : 1965 Inbound call from Anibal [facility] [place] [facility]. Callback number [phone]. . Please resend lab orders. Caller states they did not receive all the orders. Requests call to confirm. elephone Encounter - Jose Enrique Rodriguez MA - 08/24/2019 4:14 PM PDTCalled pt to advise labs were uploaded and routed to [facility]. elephone Hanane hart - Saniya Mcmillan - 08/24/2019 12:42 PM PDTGema called and left a message to be con tacted with recent lab results. Her phone number is [phone]. elephone Encounter - Jose Enrique Rodriguez MA - 08/21/19 20 3:14 PM PDTLab orders sent to Shawn Gomezcierra Lombardi at [facility] by Jose Enrique Rodriguez MA at 08/21/2019 3:19 PM PDTTelephone Encounter - Holly Early - 020 3:07 PM PDTINBOUND CALL DATE: August 21, 2019 PATIENT: Gema Barron : 1965 Inbound call from Anibal [facility]obar [facility]. Callback number [phone]. . Please send lab orders externally. documented in this encounter Plan of Treatment + +------+--------+ + + | Name | Type | Priori | Associated Diagnoses | Order Schedule | | | | ty | | | + +------+--------+ + + | CBC, WITH | Lab | Routin | Chronic | Expected: 08/25/2019 | | DIFFERENTIAL | | e | right-sided heart | (Approximate), | | | | | failure (HCC) | Expires: 09/24/2020 | + +------+--------+ + + | NT-PRO BNP | Lab | Routin | Chronic | Expected: 08/25/2019 | | | | e | right-sided heart | (Approximate), | | | | | failure (HCC) | Expires: 09/24/2020 | + +------+--------+ + + | LIVER SET | Lab | Routin | Chronic | Expected: 08/25/2019 | | (AST,ALT,BILI | | e | right-sided heart | (Approximate), | | TOTAL,BILI | | | failure (HCC) | Expires: 09/24/2020 | | DIRECT,ALK | | | | | | PHOS,ALB,PROT TOTAL) | | | | | + +------+--------+ + + | BASIC METABOLIC SET | Lab | Routin | Chronic | Expected: 08/25/2019 | | (NA, K, CL, TCO2, | | e | right-sided heart | (Approximate), | | BUN, CR, GLU, CA) | | | failure (HCC) | Expires: 09/24/2020 | + +------+--------+ + + documented as of this encounter Visit Diagnoses + + | Diagnosis | + + | Chronic right-sided heart failure (HCC) - Primary Congestive heart failure, | | unspecified | + + documented in this encounter"
--- OUTSIDE RECORDS SUMMARY | ~2019-10-23 | XMS | Encounter Summary ---
Demographics + + + | Address | [address] | | | [place] [address] | + + + | Home Phone [...] Providers + +------+ + | Care Manager Data Warehousing Name | Role | Phone | + +------+ + | Bobbi Jenkins NP | PCP | | + +------+ + Encounter Details +--------+ + + + + | Date | Type | Department | Care Team | Description | +--------+ + + + + | 08/24/ | MyChart | Pulmonary & | Beth Keith, | lab results | | 2020 | Encounter | Critical Care | [address] | | | | | Medicine at | [facility] | | | | | Physicians [facility] | [place], [place] | | | | | [address] | [address] | | | | | [address] [facility] | [phone] | | | | | Donna, [address] [place] [address] | | | | | | [place], [place] | | | | | | [address] | | | | | | [phone] | | | +--------+ + + + [...]
--- OUTSIDE RECORDS SUMMARY | ~2019-10-23 | XMS | Encounter Summary ---
Demographics + + + | Address | [address] | | | [place] [address] | + + + | Home Phone | | + + + | Preferred Language | Unknown | + + + | Marital Status | Single | + + + | Muslim Affiliation | CHR | + + + [...] Team Providers + +------+ + | Care Paralegal Instructor Name | Role | Phone | + +------+ + | Bobbi Jenkins NP | PCP | | + +------+ + Reason for Visit + +--------+ + | Reason | Onset | Comments | | | Date | | + +--------+ + | Refill Request | 07/20/ | Sildenafil | | | 2020 | | + +--------+ + | Prior Authorization | 07/20/ | Sildenafil | | Request - Medication | 2020 | | + +--------+ + Encounter Details +--------+--------+ + + + | Date | Type | Department | Care Team | Description | +--------+--------+ + + + | 07/20/ | Refill | Pulmonary & | Beth Keith, | Refill Request | | 2019 | | Critical Care | [address] | (Sildenafil ); Prior | | | | Medicine at | [facility] | Authorization | | | | [facility] | [place], [place] | Request - Medication | | | | [address] | [address] | (Sildenafil ) | | | | [address] [facility] | [phone] | | | | | Donna, [address] [place] [address] | | | | | | [place], [place] | | | | | | [address] | | | | | | [phone] | | | +--------+--------+ + + + [...] Telephone Encounter - Beth Keith MD - 07/25/2019 12:20 PM PDTLeft voicemail. There is not another medication that can be used as a substitute for sildenafil unfortunately. I als o encouraged her to provide ample notice to the office when she is about to run out of her m edication in the future. [facility], please find out if there is anything else that they need on our end. The patient has b een out of medication for about a week now. Electronically signed by Beth Keith MD at 0 07/25/2019 12:27 PM PDTTelephone Encounter - Holly Early - 07/24/2019 2:09 PM PDTINBOUND DAMON L DATE: July 24, 2019 PATIENT: Gema Barron : 1965 Inbound call from Gema Barron. Callback number [phone]. Fourth call: Calling to follow up on PA forsildenafil 20 mg oral tablet. Patient is now o ut of the medication. I advised that the PA is pending, but states that she will call back e very hour on the hour until it is approved. She would like a call back from a doctor to prescribe a replacement medication. Last Appointment: Last Appointment [address] was on 03/23/19 at 3:31 pm with Kate Benjamin MD. Next Appointment:Next Appointment in [facility] is on 10/05/19 at 3:10 pm with [facility] Adult Assistant Sales Manager. elephone Encounter - Nneka Holly - 07/21/2019 4:17 PM PDTINBOUND CALL DATE: July 21, 2019 PATIENT: Gema Barron : 1965 Inbound call from Gema Barron. Callback number [phone]. Calling regarding calling to follow up on PA for sildenafil 20 mg oral tablet. Third call t o follow up. Patient is now out of the medication. Last Appointment: Last Appointment in [facility] P[facility] was on 03/23/19 at 3:31 pm with Kate Benjamin MD. Next Appointment:Next Appointment in [facility] is on 10/05/19 at 3:10 pm with [facility] Adult Assistant Sales Manager. documente d in this encounter Plan of Treatment Not on filedocumented as of this encounter Visit Diagnoses Not on filedocumented in this encounter"
--- OUTSIDE RECORDS SUMMARY | ~2019-10-23 | XMS | Encounter Summary ---
Demographics + + + | Address | [address] | | | [place] [address] | + + + | Home Phone | | + + + | Preferred Language | Unknown | + + + | Marital Status | Single | + + + | Hinduism Affiliation | CHR | + + + [...] Team Providers + +------+ + | Care Fish Filleter Name | Role | Phone | + +------+ + | Bobbi Jenkins NP | PCP | | + +------+ + Encounter Details +--------+ + + + + | Date | Type | Department | Care Team | Description | +--------+ + + + + | 04/12/ | Pharmacy | Outpatient Retail | | | | 2017 | Visit | [facility] | | | | | | [address] | | | | | | [address] [place], [place] | | | | | | [address] | | | | | | [phone] | | | +--------+ + + + [...]
--- OUTSIDE RECORDS SUMMARY | ~2019-10-23 | XMS | Encounter Summary ---
Demographics + + + | Address | [address] | | | [place] [address] | + + + | Home Phone [...] + + + | Author | [facility] | + + + | Organization | [facility] | + + + | Address [...] Team Providers + +------+ + | Care Professor Of Mathematics Name | Role | Phone | + +------+ + | Bobbi Jenkins NP | PCP | | + +------+ + Encounter Details +--------+ + + + + | Date | Type | Department | Care Team | Description | +--------+ + + + + | 11/25/ | Hospital | Cardiac | Sjh, Car Ecg Tech | | | 2019 | Encounter | Non-Invasive Testing | [address] | | | | | at [facility] | [facility] | | | | | [address] | [place] [address] | | | | | [address] | | | | | | [place], [address] [place] [address] | | | | | | [place], [place] | | | | | | [address] | | | | | | [phone] | | | +--------+ + + + [...] + documented as of this encounter Progress Meg Lee - 11/25/2018 1:20 PM PDTZio Patch placement complete. Return instructions discussed. Report to follow when monitor is returned. Monitor #: [id number] Expected completion date: 12/09/18 documented in this encount er Plan of Treatment Not on filedocumented as of this encounter Procedures + +--------+ + + + | Procedure Name | Priori | Date/Time | Associated Diagnosis | Comments | | | ty | | | | + +--------+ + + + | EXTENDED CARDIAC | Routin | 11/25/2018 | Pulmonary | Results for this | | MONITOR (14 DAY) | e | 1:26 AM | hypertension (HCC) | procedure are in the | | | | PDT | | results section. | + +--------+ + + + documented in this encounter Results EXTENDED CATHODE WASHER (14 DAY) (11/25/2018 1:26 AM PDT) + + + + + + | Component | Value | Ref Range | Performed | Pathologist | | | | | At | Signature | + + + + + + | CARDIOLOGY | See PDF Scan for Report | | [facility] DEPT | | | INTERPRETAT | | | OF | | | ION | | | CARDIOLOGY | | + [...] DEPT OF | [address] | [place], [place] | | | CARDIOLOGY | [facility] | [address] | | + + + + + documented in this encounter Visit Diagnoses + + | Diagnosis | + + | Pulmonary hypertension (HCC) Other chronic pulmonary heart diseases | + + documented in this encounter"
--- OUTSIDE RECORDS SUMMARY | ~2019-10-23 | XMS | Encounter Summary ---
Demographics + + + | Address | [address] | | | [place] [address] | + + + | Home Phone [...] Author + + + | Author | [facility] | + + + | Organization | [facility] | + + + | [...] Team Providers + +------+ + | Care Plaster Die Maker Name | Role | Phone | + +------+ + | Eve Daugherty MD | PCP | | + +------+ + Encounter Details +--------+ + + + + | Date | Type | Department | Care Team | Description | +--------+ + + + + | 11/12/ | Die Setter | Pulmonary & | Mya Hall MD | Pulmonary | | 2018 | | Critical Care | [address] | hypertension (HCC) | | | | Medicine at | [address] [place], | (Primary Dx) | | | | [facility] | [place] [address] | | | | | [address] | [phone] | | | | | [address] [facility] | | | | | | [address], [address] Floor | | | | | | [place], [place] | | | | | | [address] | | | | | | [phone] | | | +--------+ + + + [...]
--- OUTSIDE RECORDS SUMMARY | ~2019-10-23 | XMS | Encounter Summary ---
Demographics + + + | Address | [address] | | | [place] [address] | + + + | Home Phone [...] Providers + +------+ + | Care Log Haul Operator Name | Role | Phone | + +------+ + | Bobbi Jenkins NP | PCP | | + +------+ + Encounter Details +--------+ + + + + | Date | Type | Department | Care Team | Description | +--------+ + + + + | 08/13/ | Telephone | Pulmonary & | Beth Keith, | | | 2020 | | Critical Care | [address] | | | | | Medicine at | [facility] | | | | | [address] | [place], [place] | | | | | [address] | [address] | | | | | [address] | [phone] | | | | | [address] | | | | | | [place], [place] | | | | | | [address] | | | | | | [phone] | | | +--------+ + + + [...] this encounter Miscellaneous Notes Telephone Encounter - Jose Enrique Rodriguez MA - 08/14/2019 3:35 PM PDTCalled pt to check if BMP was available. PT states they have been out of town and will get labs done when she gets ba ck. Likely 08/16. docum ented in this encounter Plan of Treatment Not on filedocumented as of this encounter Visit Diagnoses Not on filedocumented in this encounter"
--- OUTSIDE RECORDS SUMMARY | ~2019-10-23 | XMS | Encounter Summary ---
Demographics + + + | Address | [address] | | | [place] [address] | + + + | Home Phone | | + + + | Preferred Language | Unknown | + + + | Marital Status | Single | + + + | Religion Affiliation | CHR | + + + | Race | White | + + + | Ethnic Group | Not or | + + + Author + + + | Author | [facility] | + + + | Organization | [facility] | + + + | Address | [...] Team Providers + +------+ + | Care Culinary Assistant Name | Role | Phone | + +------+ + | Eve Daugherty MD | PCP | | + +------+ + Encounter Details +--------+ + + + + | Date | Type | Department | Care Team | Description | +--------+ + + + + | 07/07/ | Telephone | Pulmonary & | Mya Hall MD | | | 2019 | | Critical Care | [address] | | | | | Medicine at [facility], | | | | | [address] [place] | [place] [address] | | | | | [address] | [phone] | | | | | [address] [facility] | | | | | | [place], [facility] Floor | | | | | | [place], [place] | | | | | | [address] | | | | | | [phone] | | | +--------+ + + + [...] Telephone Encounter - Mya Hall MD - 07/10/2018 10:58 PM PDTPatient does not need assist saul from the leap program Telephone Encounter - Sydni Saldana MA - 07/07/2018 3:54 PM PDTFormatting of this note migh t be different from the original. Leap support program called to report that they will no longer be assisting patient as they are only affiliated with brand name Letairis. Patient is now receiving generic through [facility]. Ambrisentan (LETAIRIS) 10 mg oral tablet from - Day planned for Ordered Dose: 10 mg Frequency: DAILY Route: oral Quantity: 30 tablet Refills: 11 Order Status: Sent [facility] [address] [phone] documented in this encou nter Plan of Treatment Not on filedocumented as of this encounter Visit Diagnoses Not on filedocumented in this encounter"
--- OUTSIDE RECORDS SUMMARY | ~2019-10-23 | XMS | Encounter Summary ---
Demographics + + + | Address | [address] | | | [place] [address] | + + + | Home Phone [...] Team Providers + +------+ + | Care Waste Disposal Leakage Tester Name | Role | Phone | + +------+ + | Eve Daugherty MD | PCP | | + +------+ + Encounter Details +--------+ + + + + | Date | Type | Department | Care Team | Description | +--------+ + + + + | 11/22/ | Telephone | Pulmonary & | Mya Hall MD | | | 2018 | | Critical Care | [address] | | | | | Medicine at [facility], | | | | | [address] [place] | [place] [address] | | | | | [address] | [phone] | | | | | [address] | | | | | | [place], [facility] | | | | | | [place], [place] | | | | | | [address] | | | | | | [phone] | | | +--------+ + + + [...] Telephone Encounter - Mya Hall MD - 11/22/2017 5:43 PM PDTSpoke to the patient reporte d increased abdominal swelling and shortness of breath. She has stopped taking spirolactone. She's taking torsemide and potassium in the morning and sildenafil 3 times a day. I recommended that she take an additional dose of's torsemide with potassium in the afterno on for the next few days and start ambrisentan when it arrives tomorrow. She will contact me if there is any change her worsening in her condition. She will go to [facility] if she gets any worse and contact my office in a few days to let me know h ow she's doing. elephone E maureen - Mindi Irwin MA - 11/22/2017 11:14 AM PDTPatient called in this morning and stated that she was on campus for her paracentesis but they were not able to perform the pr ocedure. Patient said that they did an ultrasound and told her that they could not find a po cket, it was all tissue and so they were unable to do the procedure for her. Patient stated that she now has a little bit of swelling in her wrists and she would like to know what Dr. Hall would like her to do next. She's hoping to get a response while she is still in town in case she needs to come back to [facility]. Routing to Dr. Hall as high priority and will follow u p with the patient after receiving a response. documented in this encounter Plan of Treatment Not on filedocumented as of this encounter Visit Diagnoses Not on filedocumented in this encounter"
--- OUTSIDE RECORDS SUMMARY | ~2019-10-23 | XMS | Encounter Summary ---
Demographics + + + | Address | [address] | | | [place] [address] | + + + | Home Phone | | + + + | Preferred Language | Unknown | + + + | Marital Status | Single | + + + | Anglican Affiliation | CHR | + + + [...] Team Providers + +------+ + | Care Tentering Machine Off Bearer Name | Role | Phone | + +------+ + | Eve Daugherty MD | PCP | | + +------+ + Encounter Details +--------+ + + + + | Date | Type | Department | Care Team | Description | +--------+ + + + + | 02/03/ | Documentati | Pulmonary & | Mya Hall MD | | | 2018 | on | Critical Care | [address] | | | | | Medicine at [facility], | | | | | [facility] [place] | [place] [address] | | | | | [address] | [phone] | | | | | [address] [facility] | | | | | | [place], [address] Floor | | | | | | [place], [place] | | | | | | [address] | | | | | | [phone] | | | +--------+ + + + [...]
--- OUTSIDE RECORDS SUMMARY | ~2019-10-23 | XMS | Encounter Summary ---
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 +-------+ + + + | CR | 74.0 | 75.0 - 115.0 | [facility] | | | CLEARANCE | | mL/min/1.73 m^2 | CENTRAL | | | (EST) | | | LABS | | + +-------+ + + + + + | Specimen | + + | | + + + + + + + | Performing | Address | City/State/Zipcode | Phone Number | | Organization | | | | + + + + + | [facility] | [address] | [facility], | [phone] | | LABS | | [place] [address] | | + + + + + NT-PRO BNP (03/23/2019) + +-------+ + + + | Component | Value | Ref Range | Performed | Pathologist | | | | | At | Signature | + +-------+ + + + | NT-PRO BNP | 96 | <=124 pg/mL | [facility] | | | | | | CENTRAL | | | | | | LABS | | + +-------+ + + + + + | Specimen | + + | Blood - Blood | | (substance) | + + + + + + + | Performing | Address | City/State/Zipcode | Phone Number | | Organization | | | | + + + + + | [facility] | [address] | [facility], | [phone] | | LABS | | [place] [address] | | + + + + + CBC, WITH DIFFERENTIAL (03/23/2019) + +--------+ + + + | Component | Value | Ref Range | Performed | Pathologist | | | | | At | Signature | + +--------+ + + + | WHITE CELL | 7.78 | 3.70 - 11.00 | [facility] | | | COUNT | | *10^3/uL | CENTRAL | | | | | | LABS | | + +--------+ + + + | RED CELL | 4.57 | 3.70 - 5.20 | [facility] | | | COUNT | | *10^6/uL | CENTRAL | | | | | | LABS | | + +--------+ + + + | HEMOGLOBIN | 14.6 | 11 - 15.5 g/dL | [facility] | | | | | | CENTRAL | | | | | | LABS | | + +--------+ + + + | HEMATOCRIT | 47.2 | 33.0 - 47.0 % | [facility] | | | | | | CENTRAL | | | | | | LABS | | + +--------+ + + + | MCV | 103.3 | 82.0 - 102.0 fL | [facility] | | | | | | CENTRAL | | | | | | LABS | | + +--------+ + + + | MCH | 31.9 | 27.0 - 34.0 pg | [facility] | | | | | | CENTRAL | | | | | | LABS | | + +--------+ + + + | MCHC | 30.9 | 31.0 - 36.0 | [facility] | | | | | g/dL | CENTRAL | | | | | | LABS | | + +--------+ + + + | PLATELET | 248 | 163 - 375 | [facility] | | | COUNT | | *10^3/uL | CENTRAL | | | | | | LABS | | + +--------+ + + + | NEUTROPHIL | 62.4 | 34.0 - 71.0 % | [facility] | | | % | | | CENTRAL | | | | | | LABS | | + +--------+ + + + | LYMPHOCYTE | 27.5 | 12.0 - 46.0 % | [facility] | | | % | | | CENTRAL | | | | | | LABS | | + +--------+ + + + | MONOCYTE % | 4.8 | 0.0 - 11.0 % | [facility] | | | | | | CENTRAL | | | | | | LABS | | + +--------+ + + + | EOS % | 4.4 | 0.0 - 7.0 % | [facility] | | | | | | CENTRAL | | | | | | LABS | | + +--------+ + + + | BASO % | 0.4 | 0.0 - 3.0 % | [facility] | | | | | | CENTRAL | | | | | | LABS | | + +--------+ + + + | RETICULOCYT | 3.33 | 0.77 - 2.36 % | [facility] | | | E COUNT | | | CENTRAL | | | | | | LABS | | + +--------+ + + + | NEUTROPHIL | 4.86 | 1.70 - 7.90 | [facility] | | | # | | *10^3/uL | CENTRAL | | | | | | LABS | | + +--------+ + + + | LYMPHOCYTE | 2.14 | 0.90 - 3.60 | [facility] | | | # | | *10^3/uL | CENTRAL | | | | | | LABS | | + +--------+ + + + | MONOCYTE # | 0.37 | 0.0 - 1.20 | [facility] | | | | | *10^3/uL | CENTRAL | | | | | | LABS | | + +--------+ + + + | EOS # | 0.34 | 0.0 - 0.80 | [facility] | | | | | *10^3/uL | CENTRAL | | | | | | LABS | | + +--------+ + + + | BASO # | 0.4 | 0.0 - 3.0 | [facility] | | | | | *10^3/uL | CENTRAL | | | | | | LABS | | + +--------+ + + + | RETIC | 0.1500 | 0.76740 - | [facility] | | | ABSOLUTE # | | 0.1200 *10^6/uL | CENTRAL | | | | | | LABS | | + +--------+ + + + + + | Specimen | + + | Blood - Blood | | (substance) | + + + + + + + | Performing | Address | City/State/Zipcode | Phone Number | | Organization | | | | + + + + + | [facility] | [address] | [facility], | [phone] | | LABS | | [place] [address] | | + + + + + documented in this encounter Visit Diagnoses + + | Diagnosis | + + | Pulmonary hypertension (HCC) - Primary Other chronic pulmonary heart diseases | + + documented in this encounter"
--- OUTSIDE RECORDS SUMMARY | ~2019-10-23 | XMS | Encounter Summary ---
Demographics + + + | Address | [address] | | | [place] [address] | + + + | Home Phone | | + + + | Preferred Language | Unknown | + + + | Marital Status | Single | + + + | Presybeterian Affiliation | CHR | + + + [...] Team Providers + +------+ + | Care Travel Specialist Name | Role | Phone | + +------+ + | Bobbi Jenkins NP | PCP | | + +------+ + Reason for Visit + +--------+ + | Reason | Onset | Comments | | | Date | | + +--------+ + | Medication Question | 01/25/ | | | | 2019 | | + +--------+ + Encounter Details +--------+ + + + + | Date | Type | Department | Care Team | Description | +--------+ + + + + | 01/25/ | Telephone | Pulmonary & | Kate Benjamin, | Medication Question | | 2019 | | Critical Care | [address] | | | | | Medicine at | [facility] | | | | | Physicians [place] | [place], [place] | | | | | [address] | [address] | | | | | [address] [facility] | [phone] | | | | | [place], [address] [place] [address] | | | | | | [place], [place] | | | | | | [address] | | | | | | [phone] | | | +--------+ + + + [...] Telephone Encounter - Kate Benjamin MD - 01/25/2019 10:14 AM PSTCalled Ms. Barron to le t her know the results of the Zio patch. No afib or aflutter, three episodes of non-sustained SVT. At this time, would not start meds, would continue to monitor She was not available at the time, I left a brief message and asked her to call me back if she had any questions. documented in this en counter Plan of Treatment Not on filedocumented as of this encounter Visit Diagnoses Not on filedocumented in this encounter"
--- OUTSIDE RECORDS SUMMARY | ~2019-10-23 | XMS | Encounter Summary ---
Demographics + + + | Address | [address] | | | [place] [address] | + + + | Home Phone | | + + + | Preferred Language | Unknown | + + + | Marital Status | Single | + + + | Samaritan Affiliation | CHR | + + + | Race | White | + + + | Ethnic Group | Not or | + + + Author + + + | Author | [facility] | + + + | Organization | [facility] | + + + [...] Team Providers + +------+ + | Care Vender Name | Role | Phone | + +------+ + | Bobbi Jenkins NP | PCP | | + +------+ + Reason for Visit + +--------+ + | Reason | Onset | Comments | | | Date | | + +--------+ + | Medication Refill | 07/18/ | Sildenafil | | Request | 2020 | | + +--------+ + Encounter Details +--------+ + + + + | Date | Type | Department | Care Team | Description | +--------+ + + + + | 07/18/ | Telephone | Pulmonary & | Beth Keith, | Medication Refill | | 2019 | | Critical Care | [address] | Request (Sildenafil) | | | | Medicine at | [facility] | | | | | Physicians [place] | [place], [place] | | | | | [address] | [address] | | | | | [address] [facility] | [phone] | | | | | [place], [address] [place] [address] | | | | | | [place], [place] | | | | | | [address] | | | | | | [phone] | | | +--------+ + + + [...] Telephone Encounter - Gianna Worthy MA - 07/24/2019 9:46 AM PDTPlease start PA for for Sildenafil. PA . elephone Encounter - Holly Early - 07/20/2019 1:40 PM PDTINBOUND CALL DATE: July 20, 2019 PATIENT: Gema Barron : 1965 Inbound call from Gema Barron. Callback number [phone]. Calling regarding calling to follow up on PA for sildenafil 20 mg oral tablet. She is gerardo rned because she is going to be out tonight. Last Appointment: Last Appointment in [facility] 3RD P[facility] was on 03/23/19 at 3:31 pm with Kate Benjamin MD. Next Appointment:Next Appointment in [facility] P[facility] FUNC LAB M[facility] is on 10/05/19 at 3:10 pm with [facility] Adult Financial Analysis Advisor. elephone Encounter - Saniya Mcmillan - 07/19/2019 2:24 PM PDTGema called [facility] [place] for a refil l for Sildenafil. They informed her that it would need prior authorization. She is concern ed as she will be out of the medication tomorrow.Electronically signed by Saniya qiuntanilla 07/19/2019 2:27 PM PDTdocumented in this encounter Plan of Treatment Not on filedocumented as of this encounter Visit Diagnoses Not on filedocumented in this encounter"
--- OUTSIDE RECORDS SUMMARY | ~2019-10-23 | XMS | Encounter Summary ---
Demographics + + + | Address | [address] | | | [place] [address] | + + + | Home Phone [...] Team Providers + +------+ + | Care Numerical Tool Programmer Name | Role | Phone | + [...] | | Pulmonary | MD Mya | [facility] [address] | | | | | hypertension | [address] | [address] | | | | | ([facility]) | [facility] | [facility] | | | | | Procedures | Rd | [address] | | | | | TRANSTHORACI | [place], [place] | [facility], | | | | | C | [address] | floor | | | | | ECHOCARDIOGR | Phone: | [place], [place] | | | | | AM, ADULT | [phone] | [address] | | | | | MD TTE | Fax: | Phone: | | | | | W/DPPLR, | [phone] | [phone] | | | | | COMP | | | +--------+--------+ + + + + Encounter Details +--------+ + + + + | Date | Type | Department | Care Team | Description | +--------+ + + + + | 04/08/ | Hospital | Cardiac | Sjh, Car Ecg Tech | | | 2018 | Encounter | Non-Invasive Testing | [address] | | | | | at [facility] | [facility] | | | | | [address] | [place], [place] [facility] | | | | | Loop [facility] | | | | | | [address], [address] floor | | | | | | [place], [place] | | | | | | [address] | | | | | | [phone] | | | +--------+ + + + [...] in this encounter Results 12 LEAD ECG (04/08/2017 11:01 AM PST) [...] + + + + + + | [facility] | [address] | ms | [facility] DE[facility] [...] | + + + + + | [facility] | [address] | [place], [place] | | | CARDIOLOGY | [address] | [address] | | + + + + + documented in this encounter Visit Diagnoses Not on filedocumented in this encounter"
--- OUTSIDE RECORDS SUMMARY | ~2019-10-23 | XMS | Encounter Summary ---
Demographics + + + | Address | [address] | | | [place] [address] | + + + | Home Phone [...] Team Providers + +------+ + | Care Skein Mercerizing Machine Operator Name | Role | Phone | + +------+ + | Eve Daugherty MD | PCP | | + +------+ + Reason for Referral (Routine) +--------+--------+ + + + + | Status | Reason | Specialty | Diagnoses / | Referred By | Referred To | | | | | Procedures | Contact | Contact | +--------+--------+ + + + + | | | | | Jose, | | | | | | | Jonathon Nice | | | | | | | [address] | | | | | | | [address] | | | | | | | [address] | | | | | | | [address] | | | | | | | [place], [place] | | | | | | | [address] | | | | | | | Phone: | | | | | | | [phone] | | | | | | | Fax: | | | | | | | [phone] | | +--------+--------+ + + + + Reason for Visit + + + | Reason | Comments | + + + | Heart failure | | + + + AUTH/CERT +--------+--------+ + + + + | [...] | +--------+ + + + + | 03/17/ | Hospital | [facility] [address] | Jessica Domingo MD | | | 2018 - | Encounter | [facility] [id number] | Eric Atkins MD | | | | | [facility] | [address] | | | 03/27/ | | [place], [place] | Aura Noriega [place], | | | 2017 | | [address] | [place] [address] | | | | | [phone] | [phone] | | | | | | | | | | | | [place], | | | | | | [address] [facility] | | | | | | [address] | | | | | | [place], [place] | | | | | | [address] | | | | | | [phone] | | | | | | | | | | | | Elida Long MD | | | | | | [address] | | | | | | [place], [place] | | | | | | [address] | | | | | | [phone] | | | | | | | | | | | | Virginie Hatfield MD [address] | | | | | | [address] [facility] | | | | | | Rd [place], [place] | | | | | | [address] | | | | | | [phone] | | | | | | | | | | | | Jonathon Garcia, | | | | | | ,MPH [address] | | | | | | [facility] [address] | | | | | | [place], [place] | | | | | | [address] | | | | | | [phone] | | | | | | | [...] + + + | Blood Pressure | 144/102 | 03/27/2017 4:03 PM | | | | | PST | | + + + + + | Pulse | 84 | 03/27/2017 4:03 PM | | | | | PST | | + + + + + | Temperature | 36.4 C (97.5 F) | 03/27/2017 4:03 PM | | | | | PST | | + + + + + | Respiratory Rate | 16 | 03/27/2017 4:03 PM | | | | | PST | | + + + + + | Oxygen Saturation | 99% | 03/27/2017 4:03 PM | | | | | PST | | + + + + + | Inhaled Oxygen | - | - | | | Concentration | | | | + + + + + | Weight | 74.2 kg (163 lb 9.3 | 03/27/2017 6:33 AM | | | | oz) | PST | | + + + + + | Height | 167.6 cm (5' 6") | 03/17/2017 12:00 AM | | | | | PST | | + + + + + | Body Mass Index | 26.4 | 03/17/2017 12:00 AM | | | | | PST [...] + documented as of this encounter Discharge Summaries Jonathon Garcia MD,MPH - 03/27/2017 11:47 AM PST [facility] Discharge Summary Discharging Provider: JONATHON GARCIA MD, MPH PCP: Eve Daugherty MD Admission Date: 03/17/2017 Discharge Date: 03/27/2017 Hospital Stay: 10 day(s) Diagnosis: Principal Diagnosis: 1) *Pulmonary arterial hypertension Additional diagnoses: 2) Cor pulmonale (HCC) 3) Chronic cough 4) Reactive airway disease 5) Dental abscess 6) Von Willebrand disease (HCC) 7) History of inhalational methamphetamine abuse 8) Acute Kidney Injury Procedures: RHC 03/22/2017 SUMMARY: 1. Normal resting RA pressure 2. Moderately elevated RV pressure 3. Procedure terminated early due to possible pulmonary [...] extremities. No venous thro mbosis was detected. PFTs 03/24/17 Results for GEMA BARRON ( ) as of 03/25/2017 08:16 Ref. Range 03/24/2017 16:06 FVC PRE Latest Ref Range: 3.54 L 3.17 FVC PRE (%REF) Latest Units: % 89 FEV1 PRE Latest Ref Range: 2.78 L 2.49 FEV1 PRE (%REF) Latest Units: % 89 FEV1/FVC PRE Latest Ref Range: 80 % 79 FEV1/FVC PRE (%REF) Latest Units: % 98 JZN84-85% PRE Latest Ref Range: 2.67 L/sec 2.14 DZQ33-00% PRE (%REF) Latest Units: % 80 PEF PRE Latest Ref Range: 6.71 L/sec 6.36 PEF PRE (%REF) Latest Units: % 94 FIF50% PRE Latest Ref Range: 4.97 L/sec 5.97 FIF50% PRE (%REF) Latest Units: % 120 DLCO PRE Latest Ref Range: 22.62 ml/min/mmHg 22.04 DLCO PRE (%REF) Latest Units: % 97 DLCO ADJ PRE Latest Ref Range: 22.62 ml/min/mmHg 19.76 DLCO ADJ PRE (%REF) Latest Units: % 87 DLCO/VA ADJ PRE Latest Units: ml/min/mmHg/L 3.99 DLCO/VA ADJ PRE (%REF) Latest Units: % 90 RHC 03/25/2017 Conclusions At room air: 1. [...] x-descent Blood pressure: 120/87mmHg, MAP 100mmHg Heart [id number] Pulmonary arterial saturation: 59% Hemoglobin:16.8gm/dl Marleny CO:2.26L/min Marleny CI:1.24L/min/m2 [id number] (Using Marleny CO) [id number](Using Marleny CO) Findings at 5ppm of Moris: [...] Marleny CI:1.36L/min/m2 PVR:12 HAN (Using Marleny CO) Reason for Admission: pulmonary hypertension Hospital Course by Problem (with follow-up plan/instructions): 52 year old woman with a history of inflammatory bowel disease, reactive airway disease, vo n Willibrand's disease, who presented to [facility] for progressive cough and dyspnea f ound to have biventricular systolic dysfunction with cor pulmonale. Transferred for further evaluation and diagnosed with primary arterial hypertension likely secondary to prior metham phetamine use. Underwent diuresis and initiation of sildenafil prior to discharge. Hospital Course by Problem (with follow-up plan/instructions): Pulmonary arterial hypertension with Cor Pulmonale- RHC consistent with severe pulmonary ar terial hypertension without vasodilator response. Normal PCWP essentially made group II (rel ated to L heart failure) unlikely. Most likely secondary to prior methamphetamine use versus idiopathic. Antitopoisomerase I (anti-Scl-70) antibody negative making CREST/scleroderma u nlikely. Echocardiogram suggested a large echogenic mobile mass concerning for PE but CTA di d not confirm this. Diuresed 14L during the admission and discharged on prn furosemide 20mg. Despite lack of vasodilator response, pulmonology suggested trial of sildenafil. -sildenafil 20mg TID -to follow-up with Dr. Donnelly, [facility] pul HTN clinic, (not yet scheduled on discharge; [facility] jocelyn morales and Jose to follow-up) -furosemide 20mg daily for weight gain more than 3lbs in 24 hrs or 5lbs in 48 hrs ALONDRA (acute kidney injury) (HCC) - secondary to aggressive diuresis at outside hospital. Res olved. Stopped home lisinopril. Dental abscess - spontaneously draining, localized chronic apical abscess of teeth #13,14,1 5. Seen by inpatient dental service with plan for extractions on 03/31 @ 9am with recommendat ion to continue augmentin (also for sinusitis) until that time. Acute Sinusitis - flonase BID + augmentin (start 03/22, stop 03/31) Chronic cough - unclear exact etiology. Continue albuterol. Would benefit from outpatient t rial of H2 darshan/PPI for silent GERD. Discharged with lozenges Elevated transaminases/alk phos - AST/ALT mildly elevated (60s) and Alk phos (low 100s) wit h normal T bili. Unclear etiology and actually normal on admission. Recommend outpatient rep eat labs and consider imaging if not improving. Von Willebrand disease (HCC) - not an active issue. History of inhalational methamphetamine abuse--Reports no active use. U Tox negative except for oxycodone Pertinent Findings: Labs: Bmp wnl, AST 62, ALT 63, Alk phos 110, T bili 1.1, alb 3.2; CBC wnl; INR 1.0 Imaging: Other Studies: Outstanding or Pending Labs/Studies: Consultants (service/attending name): Heart Failure - Darryl Ballesteros MD Pulmonology - Petar Brown MD Discharge Medications: Medication List START taking these medications amoxicillin-clavulanate 875-125 mg Tab Commonly known as: AUGMENTIN Take 1 tablet by mouth two times daily. Indications: Sinusitis dextromethorphan-guaiFENesin 10-100 mg/5 mL Syrp Commonly known as: ROBITUSSIN DM Take 10 mL by mouth every four hours as needed (cough 2nd line). Indications: Cough fluticasone 50 mcg/actuation Spsn Commonly known as: FLONASE Instill 2 sprays into each nostril two times daily. Indications: sinusitis guaiFENesin 100 mg/5 mL Liqd Commonly known as: ROBITUSSIN Take 5 mL by mouth every four hours as needed. Indications: Cough lactobacillus rhamnosus (GG) 15 billion cell Cpsp Commonly known as: CULTURELLE Take 1 capsule by mouth once daily. Stop taking once you finish antibiotic (augmentin) Blessing cations: prevention of diarrhea while on antibiotics Start taking on: 03/28/2017 menthol 5 mg Lozg Commonly known as: COUGH DROPS Take 1 lozenge by mouth as needed. Indications: cough potassium chloride 20 mEq Pack Commonly known as: KLOR-CON Take 1 packet twice daily on days you take furosemide (lasix) Indications: hypokalemia prev ention sildenafil 20 mg Tab Commonly known as: REVATIO Take 1 tablet by mouth 3 times daily. Administer at least 4 to 6 hours apart. Indications: Pulmonary Arterial Hypertension sodium chloride 0.65 % Spra Commonly known as: OCEAN Instill 2 sprays into each nostril four times daily. Indications: Nasal Congestion CHANGE how you take these medications furosemide 20 mg Tab Commonly known as: LASIX Weigh yourself daily. Take 1 tablet (20mg) if weight increases more than 3 lbs in 24 hours or 5 lbs in 48 hrs. Call your MD if no improvement in weight despite taking diuretic. Indica tions: Peripheral Edema due to Chronic Heart Failure What changed: medication strength how much to take how to take this when to take this additional instructions CONTINUE taking these medications albuterol 90 mcg/actuation Hfaa Commonly known as: PROVENTIL, VENTOLIN benzonatate 100 mg Cap Commonly known as: akaTESSALON calcium carbonate-vitamin D3 1,000 mg(2,500 mg)-800 unit Tab diphenhydrAMINE 25 mg Cap Commonly known as: BENADRYL STOP taking these medications lisinopril 20 mg Tab Commonly known as: PRINIVIL Rationale for Medication Changes: Lisinopril stopped due to ALONDRA Allergies: Allergies Allergen Reactions Morphine Hypotension Code Status: Full POLST completed: no Additional Instructions: Condition on Discharge Stable Diet Regular Restrictions- Please follow a diet with the following restrictions: 2gram sodium per day 2L fluid restriction per day Activity No activity restrictions Home Health Referral after Hospitalization Comments: I certify that this patient is under my care and that I, or Nurse Practitioner or Physician Lace Burn Out Tender working with me, had a face to face encounter with this patient on 03/26/2017 On behalf of Attending Physician: Virginie Hatfield MD I am ordering and certify that the following services are medically necessary home health [facility] Evaluate and Treat I am ordering and certify that the following services are medically necessary home [facility] Physical Therapy Evaluate and Treat I am ordering and certify that the following services are medically necessary [facility] Occupational Therapy Evaluate and Treat I certify that the patient is homebound based on the following clinical findings Post-hospi amanda weakness, decreased strength and endurance, and tires easily with minimal exertion Follow Up: Future Appointments Provider Department Dept Phone Center 03/31/2017 9:30 AM [facility] at [facility] [phone] FS Schedule the following appointment(s) when you get home Schedule an appointment as soon as possible for a visit with Eve Daugherty MD. Specialty: Family Medicine Why: for hospital follow-up Contact information [facility] [address] [place] [address] [place] [phone] ROSANGELA CONTEH MD. Specialties: Pulmonary Disease, Critical Care Medicine Why: they will call you to set up a follow-up appointment Contact information [address] [place] [address] Discharge Physical Exam: Last 24 hour min/max Temp: 36.4 C (97.5 F) Temp Min: 36.4 C (97.5 F) Max: 36.8 C (98.2 F) Pulse: 81 Pulse Min: 65 Max: 91 Resp: 16 Resp Min: 16 Max: 20 BP: 130/75 BP Min: 116/65 Max: 145/93 SpO2: 93 % SpO2 Min: 91 % Max: 98 % Body mass index is 26.4 kg/m. General: well-appearing HEENT/Neck: JVD ~12cm at 45 degrees (likely appropriately for degree of pulm HTN) Cardiovascular: regular. S1, S2 normal. No murmur. Pulmonary: clear to auscultation Abdominal: soft, non-tender. Skin: No rash or edema Musculoskeletal: Healing RHC puncture site RIJ Neuro: Alert, appropriately conversational Psych: normal affect Lines: none JONATHON GARCIA MD,MPH documented in thi s encounter Discharge Instructions Instructions Mario Alberto Lew, GWEN - 03/18/2017 Patient Education Materials: provided additional information on sildenafil Additional Instructions: Watch for signs of low blood pressure such as dizziness, feeling f aint or light headed. Weigh yourself daily and refer to your Caring for your Heart booklet for more information. If you gain more than 3lbs in one day or 5lbs in a week, please call your doctor at the number provided. Take all medications as prescribed and keep all follow up appointments. Discharge Nurse: MARIO ALBERTO LEW RN Date: 03/27/2017 Discharge Time: 3:47 PM documented in this encounter Medications at Time [...] documented as of this encounter Progress Notes Virginie Hatfield MD - 03/26/2017 10:05 AM PST HOSPITALIST INPATIENT PROGRESS NOTE Hospital Day: 9 Attending Physician: Virginie Hatfield MD Interval History: Patient is s/p RHC with vasodilator trial yesterday. Patient had minima l response with high dose NO. No acute events overnight. Subjective: Some complaints of neck pain due to cath yesterday which she says was a long p rocedure. She did not have any bleeding overnight from her neck site. She still has draina ge from her teeth, but sinus pressure still much better. Physical Exam: Last 24 hour min/max Temp: 36.7 C (98.1 F) Temp Min: 36.3 C (97.3 F) Max: 36.7 C (98.1 F) Pulse: 78 Pulse Min: 76 Max: 94 Resp: 16 Resp Min: 10 Max: 18 BP: 121/81 BP Min: 112/77 Max: 141/91 SpO2: 98 % SpO2 Min: 93 % Max: 100 % Body mass index is 26.47 kg/m. General : Alert and oriented x 3. cooperative HEENT: JVD to 2cm above the clavicle. CVS: S1 & S2 regular, rhythm. SM+ at LUSB R/S: Chest clear, No crepts or ronchi. GI: soft, distended, nontender, bowel sounds+. LANDSCAPE TECHNICIAN: Grossly nonfocal. Moving all four extremities. Extremities: No edema Skin: No rashes Psych: cooperative I have reviewed patient current medication list. Medications Scheduled Medication Dose/Rate, Route, Frequency Last Action amoxicillin-clavulanate (AUGMENTIN) 875-125 mg 875 mg 875 mg, oral, BID Given: 03/26 846 fluticasone (FLONASE) 50 mcg/actuation nasal spray 2 spray 2 spray, BOTH NOSTRIL, BID Give n: 03/26 846 furosemide (LASIX) tablet 20 mg 20 mg, oral, DAILY Given: 03/26 846 heparin, porcine (PF) injection 5,000 Units 5,000 Units, subQ, Q8H Given: 03/25 2028 lactobacillus rhamnosus (GG) (CULTURELLE) 15 billion cell capsule 1 capsule 1 capsule, ora l, DAILY Ordered potassium chloride (KLOR-CON) packet 40 mEq 40 mEq, oral, BID Given: 03/26 846 senna-docusate (SENOKOT S) 8.6-50 mg 1 tablet 1 tablet, oral, BID Given: 03/23 1030 sodium chloride (OCEAN) 0.65 % nasal spray 2 spray 2 spray, BOTH NOSTRIL, QID Given: 03/26 846 PRN Medication Dose/Rate, Route, Frequency Last Action acetaminophen (TYLENOL) tablet 325 mg 325 mg, oral, Q4H PRN Given: 03/26 846 albuterol (PROVENTIL, VENTOLIN) 90 mcg/actuation inhaler 2 puff 2 puff, inhl, Q4H PRN Give n: 03/21 1638 bisacodyl (DULCOLAX) suppository 10 mg 10 mg, rect, DAILY PRN Ordered dextromethorphan-guaiFENesin (ROBITUSSIN DM) 10-100 mg/5 mL liquid 10 mL 10 mL, oral, Q4H PRN Given: 03/25 2028 diphenhydrAMINE (BENADRYL) capsule 25 mg 25 mg, oral, Q6H PRN Given: 03/25 2028 guaiFENesin (ROBITUSSIN) liquid 100 mg 100 mg, oral, Q4H PRN Given: 03/25 1024 HYDROcodone-acetaminophen (NORCO) 5-325 mg tablet 1 tablet 1 tablet, oral, Q4H PRN Given: 03/25 2027 menthol (COUGH DROPS) lozenge 5 mg 5 mg, oral, PRN Given: 03/25 1024 ondansetron (ZOFRAN) injection 4 mg 4 mg, IV, Q12H PRN Ordered polyethylene glycol (MIRALAX) packet 34 g 34 g, oral, TID PRN Ordered Labs reviewed in [facility] CBC with diff last 72 hours (or 3 results) Recent Labs 03/17/17 0110 03/18/17 0502 WBC 6.20 5.46 HB 15.4 14.8 HCT 47.5* 44.4 PLT 189 176 Chemistries: Last 72 Hours (or 3 results): Recent Labs 03/17/17 1050 03/18/17 0503 03/18/17 1653 03/19/17 0411 NA 139 138 -- 137 K 3.7 3.8 3.4 4.9 CL 101 102 -- 101 BICARB 33* 29 -- 30 BUN 18 22* -- 25* CR 1.15* 0.99 -- 1.15* GLU 137* 88 -- 105* CA 8.9 8.2* -- 8.5* MG 1.9 -- 1.8 -- Imaging: CT/PE protocol 03/22/2017 No pulmonary embolus. Severe [...] extremities. No venous thro mbosis was detected. PFTs 03/24/17 Results for GEMA BARRON ( ) as of 03/25/2017 08:16 Ref. Range 03/24/2017 16:06 FVC PRE Latest Ref Range: 3.54 L 3.17 FVC PRE (%REF) Latest Units: % 89 FEV1 PRE Latest Ref Range: 2.78 L 2.49 FEV1 PRE (%REF) Latest Units: % 89 FEV1/FVC PRE Latest Ref Range: 80 % 79 FEV1/FVC PRE (%REF) Latest Units: % 98 TFC53-34% PRE Latest Ref Range: 2.67 L/sec 2.14 NFZ21-97% PRE (%REF) Latest Units: % 80 PEF PRE Latest Ref Range: 6.71 L/sec 6.36 PEF PRE (%REF) Latest Units: % 94 FIF50% PRE Latest Ref Range: 4.97 L/sec 5.97 FIF50% PRE (%REF) Latest Units: % 120 DLCO PRE Latest Ref Range: 22.62 ml/min/mmHg 22.04 DLCO PRE (%REF) Latest Units: % 97 DLCO ADJ PRE Latest Ref Range: 22.62 ml/min/mmHg 19.76 DLCO ADJ PRE (%REF) Latest Units: % 87 DLCO/VA ADJ PRE Latest Units: ml/min/mmHg/L 3.99 DLCO/VA ADJ PRE (%REF) Latest Units: % 90 RHC 03/25/2017 Conclusions At room air: 1. Elevated right sided resting filling pressure and normal left sided resting filling pres sures 2. Right ventricular and pulmonary pressures demonstrate pulsus alternans 3. Severely elevated pulmonary pressures in setting of normal pulmonary capillary wedge pre ssure and severely elevated pulmonary vascular resistance, consistent with primary pulmonary hypertension 4. Decreased cardiac output and index by thermodilution and assumed Marleny. 5. Elevated systemic vascular resistance 6. Not significant response to vasodilator therapy as detailed below 7. Noted small nonocclusive clot attached to the anterior wall of right IJ abnormalities at the site of last access At 5ppm [...] and thermodilution Findings at room air: Mean RA: 10 mmHg, A wave of 11 mmHg, V wave of 14 mmHg with significant respiratory variation and prominent y-descent RV: 73/5/8 mmHg with noted pulsus alternans PA: 71/33 mmHg Mean PA: 46 mmHg Wedge: 10 mmHg, with a A wave of 18 and prominent x-descent Blood pressure: 120/87 mmHg, MAP 100 mmHg Heart Rate 90 bpm Pulmonary arterial saturation: 59 % Hemoglobin: 16.8 gm/dl Marleny CO: 2.26 L/min Marleny CI: 1.24 L/min/m2 PVR 16 HAN (Using Marleny CO) SVR 3185 dsc-5 (Using Marleny CO) Findings at 5ppm of Moris: Mean RA: 11 mmHg, A wave of 17 mmHg, V wave of 15 mmHg with significant respiratory variation and prominent y-descent PA: 74/32 mmHg Mean PA: 46 mmHg Findings at 10ppm of Moris: Mean RA: 11 mmHg, A wave of 17 mmHg, V wave of 14 mmHg with significant respiratory variation and prominent y-descent PA: 70/27 mmHg Mean PA: 41 mmHg Wedge: 9 mmHg, with a A wave of 13 and prominent x-descent Marleny CO: 2.87 L/min Marleny CI: 1.57 L/min/m2 PVR: 11 HAN (Using Marleny CO) Findings at 20ppm of Moris: Mean RA: 11 mmHg, A wave of 17 mmHg, V wave of 13 mmHg with significant respiratory variation and prominent y-descent PA: 69/31 mmHg Mean PA: 44 mmHg Findings at 40ppm of Moris: Mean RA: 9 mmHg, A wave of 16 mmHg, V wave of 11 mmHg with significant respiratory v ariation and prominent y-descent PA: 66/24 mmHg Mean PA: 38 mmHg Wedge: 9 mmHg, with a A wave of 13 and prominent x-descent TD CO: 2.8 L/min TD CI: 1.53 L/min/m2 PVR: 10 HAN (Using TD CO) Marleny CO: 2.49 L/min Marleny CI: 1.36 L/min/m2 PVR: 12 HAN (Using Marleny CO) Assessment/Plan: 52 y/o F with past medical history of CHFpEF, rheumatic fever and arthritis at age 12 (not on Penicillin), Ulcerative Colitis (not on treatment, diet controlled), Meth use for 5 years (off meth for last 5 years), vBD (no previous thrombotic episodes), RAD, h/o heavy alcohol use presents with acute systolic CHF with EF 15% and RV dilatation and high pressures. Bindu ent diagnosed with Group 1 PH. #Acute systolic heart failure (HCC) with EF 15% with unknown etiology. # Cor Pulmonale -No evidence of thromboembolic Dz on CT PE. EULOGIO negative, RF negative,[place]/ Lambda 28.6H/2 5.2N, ratio 1.13N, SPEP without monoclonal gammopathy. TSH very mildly elevated -5. Viral he patitis panel negative, U tox negative except oxycodone. HIV negative. Echocardiogram with large mobile echodensity concerning for a saddle PE. However confirmatory CTA chest did not show a large PE. Pulmonary and hematology recommended to stop heparin gtt given low suspic ion for PE/CTEPH. --Scl-70 negative. --PFTs as above without abnormalities. --RHC showing some response to vasodilators. Per Pulmonary recommendations, will be starte d on sildenafil 10mg TID today, and plan for 20mg TID on discharge. Monitor for low blood p ressure. --Appreciate Heart Failure/Transplant team recommendations --Start ACEi when OK with HF. --Lasix discontinued per HF. # Hypokalemia/HypoMg: supplement PRN. Continue Klor 40mg BID. # Tooth pain - starting Augmentin for suspected sinusitis and tooth abscesses - Consulted dentistry, they recommend tooth extraction as an outpatient next Wednesday. Tonny rodriguez will need to continue augmentin 875mg BID until she follows up with them on Wednesday. ey will update follow up information. # Acute Sinusitis - Symptoms consistent with acute sinusitis. - Started on Augmentin 03/22, and will continue until her dentistry follow up on Wednesday. - Flonase BID. - Probiotics to prevent C. Diff. #ALONDRA (acute kidney injury) - resolved - Had some increase in creatinine 1.6, with diuresis at OSH. - stable, continue to monitor BMP daily. - Holding home lisinopril for now # UC-- Has been managed primarily bit "diet" with occ need for corticosteroids or 5-ASA com pounds. --Currently stable, monitor for symptoms #Chronic cough #Reactive airway disease-- Cough likely related to heart failure and potentially underl lakeisha disease process (?Meth toxicity, CTD? As very strong FH and h/o miscarriages, dry mouth ) that has led to Cor Pulmonale. --Albuterol PRN #Von Willebrand disease (HCC): no thrombotic episodes. Only persistent bleeding from sm all injuries #History of inhalational methamphetamine abuse--Reports no active use -- U Tox negative except for oxycodone DVT prophylaxis: heparin SQ GI prophylaxis: not applicable Code: Full IP due to above medical problems Dispo: pending workup. Virginie Hatfield MD Landscape Architect And Plannersaturator Clinical Hospitalist Division of Hospital Medicine [facility] Pager [phone] ho, MD Virginie - 03/25/2017 8:15 AM PST HOSPITALIST INPATIENT PROGRESS NOTE Hospital Day: 8 Attending Physician: Virginie Hatfield MD Interval History: No acute events overnight. Subjective: Sinus pressure is significantly better, and patient notes less post-nasal drip . She is still congested however. She still has some drainage from her teeth. Physical Exam: Last 24 hour min/max Temp: 36.7 C (98.1 F) Temp Min: 36.3 C (97.3 F) Max: 36.7 C (98.1 F) Pulse: 77 Pulse Min: 74 Max: 86 Resp: 15 Resp Min: 15 Max: 18 BP: 119/70 BP Min: 115/67 Max: 130/80 SpO2: 93 % SpO2 Min: 93 % Max: 99 % Body mass index is 26.08 kg/m. General : Alert and oriented x 3. cooperative HEENT: JVD to 2cm above the clavicle. CVS: S1 & S2 regular, rhythm. SM+ at LUSB R/S: Chest clear, No crepts or ronchi. GI: soft, distended, nontender, bowel sounds+. LANDSCAPE TECHNICIAN: Grossly nonfocal. Moving all four extremities. Extremities: No edema Skin: No rashes Psych: cooperative I have reviewed patient current medication list. Medications Scheduled Medication Dose/Rate, Route, Frequency Last Action amoxicillin-clavulanate (AUGMENTIN) 875-125 mg 875 mg 875 mg, oral, BID Given: 03/24 2118 fluticasone (FLONASE) 50 mcg/actuation nasal spray 2 spray 2 spray, BOTH NOSTRIL, BID Give n: 03/24 0852 heparin, porcine (PF) injection 5,000 Units 5,000 Units, subQ, Q8H Given: 03/24 2118 potassium chloride (KLOR-CON) packet 40 mEq 40 mEq, oral, BID Given: 03/24 2118 senna-docusate (SENOKOT S) 8.6-50 mg 1 tablet 1 tablet, oral, BID Given: 03/23 1031 sodium chloride (OCEAN) 0.65 % nasal spray 2 spray 2 spray, BOTH NOSTRIL, QID Given: 03/24 1840 PRN Medication Dose/Rate, Route, Frequency Last Action acetaminophen (TYLENOL) tablet 325 mg 325 mg, oral, Q4H PRN Given: 03/22 1606 albuterol (PROVENTIL, VENTOLIN) 90 mcg/actuation inhaler 2 puff 2 puff, inhl, Q4H PRN Give n: 03/21 1638 bisacodyl (DULCOLAX) suppository 10 mg 10 mg, rect, DAILY PRN Ordered dextromethorphan-guaiFENesin (ROBITUSSIN DM) 10-100 mg/5 mL liquid 10 mL 10 mL, oral, Q4H PRN Given: 03/24 2143 diphenhydrAMINE (BENADRYL) capsule 25 mg 25 mg, oral, Q6H PRN Given: 03/24 2123 guaiFENesin (ROBITUSSIN) liquid 100 mg 100 mg, oral, Q4H PRN Given: 03/24 2042 HYDROcodone-acetaminophen (NORCO) 5-325 mg tablet 1 tablet 1 tablet, oral, Q4H PRN Given: 03/24 09 menthol (COUGH DROPS) lozenge 5 mg 1 lozenge, oral, PRN Ordered ondansetron (ZOFRAN) injection 4 mg 4 mg, IV, Q12H PRN Ordered polyethylene glycol (MIRALAX) packet 34 g 34 g, oral, TID PRN Ordered Labs reviewed in [facility] CBC with diff last 72 hours (or 3 results) Recent Labs 03/17/17 0110 03/18/17 0502 WBC 6.20 5.46 HB 15.4 14.8 HCT 47.5* 44.4 PLT 189 176 Chemistries: Last 72 Hours (or 3 results): Recent Labs 03/17/17 1050 03/18/17 0503 03/18/17 1653 03/19/17 0411 NA 139 138 -- 137 K 3.7 3.8 3.4 4.9 CL 101 102 -- 101 BICARB 33* 29 -- 30 BUN 18 22* -- 25* CR 1.15* 0.99 -- 1.15* GLU 137* 88 -- 105* CA 8.9 8.2* -- 8.5* MG 1.9 -- 1.8 -- Imaging: CT/PE protocol 03/22/2017 No pulmonary embolus. Severe [...] extremities. No venous thro mbosis was detected. PFTs 03/24/17 Results for GEMA BARRON ( ) as of 03/25/2017 08:16 Ref. Range 03/24/2017 16:06 FVC PRE Latest Ref Range: 3.54 L 3.17 FVC PRE (%REF) Latest Units: % 89 FEV1 PRE Latest Ref Range: 2.78 L 2.49 FEV1 PRE (%REF) Latest Units: % 89 FEV1/FVC PRE Latest Ref Range: 80 % 79 FEV1/FVC PRE (%REF) Latest Units: % 98 NHK68-71% PRE Latest Ref Range: 2.67 L/sec 2.14 NDI64-83% PRE (%REF) Latest Units: % 80 PEF PRE Latest Ref Range: 6.71 L/sec 6.36 PEF PRE (%REF) Latest Units: % 94 FIF50% PRE Latest Ref Range: 4.97 L/sec 5.97 FIF50% PRE (%REF) Latest Units: % 120 DLCO PRE Latest Ref Range: 22.62 ml/min/mmHg 22.04 DLCO PRE (%REF) Latest Units: % 97 DLCO ADJ PRE Latest Ref Range: 22.62 ml/min/mmHg 19.76 DLCO ADJ PRE (%REF) Latest Units: % 87 DLCO/VA ADJ PRE Latest Units: ml/min/mmHg/L 3.99 DLCO/VA ADJ PRE (%REF) Latest Units: % 90 Assessment/Plan: 52 y/o F with past medical history of CHFpEF, rheumatic fever and arthritis at age 12 (not on Penicillin), Ulcerative Colitis (not on treatment, diet controlled), Meth use for 5 years (off meth for last 5 years), vBD (no previous thrombotic episodes), RAD, h/o heavy alcohol use presents with acute systolic CHF with EF 15% and RV dilatation and high pressures. #Acute systolic heart failure (HCC) with EF 15% with unknown etiology. # Cor Pulmonale -No evidence of thromboembolic Dz on CT PE. EULOGIO negative, RF negative,[place]/ Lambda 28.6H/2 5.2N, ratio 1.13N, SPEP without monoclonal gammopathy. TSH very mildly elevated -5. Viral he patitis panel negative, U tox negative except oxycodone. HIV negative. Echocardiogram with large mobile echodensity concerning for a saddle PE. However confirmatory CTA chest did not show a large PE. Pulmonary and hematology recommended to stop heparin gtt last night given low suspicion for PE/CTEPH. --Checking Scl-70 --PFTs as above without abnormalities. --Plan for full RHC today. --Appreciate Heart Failure/Transplant team recommendations --Follow I/O, BMP, BNP 2135 --Start ACEi when OK with HF. --lasix 20mg PO daily per HF recs. Goal net even -500cc. # Hypokalemia/HypoMg: supplement PRN. Continue Klor 40mg BID. # Tooth pain -Awaiting results of panorex. - Consult dentistry if abscesses are present. - starting Augmentin for suspected sinusitis. # Acute Sinusitis - Symptoms consistent with acute sinusitis. - start Augmentin 875mg BID x5-7 days. Today is Day 4. - Flonase BID. #ALONDRA (acute kidney injury) - resolved - Had some increase in creatinine 1.6, with diuresis at OSH. - stable, continue to monitor BMP daily. - Holding home lisinopril for now # UC-- Has been managed primarily bit "diet" with occ need for corticosteroids or 5-ASA com pounds. --Currently stable, monitor for symptoms #Chronic cough #Reactive airway disease-- Cough likely related to heart failure and potentially underl lakeisha disease process (?Meth toxicity, CTD? As very strong FH and h/o miscarriages, dry mouth ) that has led to Cor Pulmonale. --Albuterol PRN #Von Willebrand disease (HCC): no thrombotic episodes. Only persistent bleeding from sm all injuries #History of inhalational methamphetamine abuse--Reports no active use -- U Tox negative except for oxycodone DVT prophylaxis: heparin SQ GI prophylaxis: not applicable Code: Full IP due to above medical problems Dispo: pending workup. Virginie Hatfield MD Landscape Architect And Plannersaturator Clinical Hospitalist Division of Hospital Medicine [facility] Pager [phone] ho, MD Virginie - 03/24/2017 8:57 AM PST HOSPITALIST INPATIENT PROGRESS NOTE Hospital Day: 7 Attending Physician: Vriginie Hatfield MD Interval History: No acute events overnight. Panorex finally done yesterday. Subjective: Upper respiratory congestion is much improved but still coughing at night. Co mplaining of insomnia exacerbated by staff coming in and out of her room. Physical Exam: Last 24 hour min/max Temp: 36.4 C (97.5 F) Temp Min: 36.3 C (97.3 F) Max: 36.7 C (98.1 F) Pulse: 78 Pulse Min: 78 Max: 90 Resp: 18 Resp Min: 18 Max: 20 BP: 115/67 BP Min: 113/67 Max: 127/90 SpO2: 94 % SpO2 Min: 91 % Max: 96 % Body mass index is 26.08 kg/m. General : Alert and oriented x 3. cooperative HEENT: JVD to 2cm above the clavicle. CVS: S1 & S2 regular, rhythm. SM+ at LUSB R/S: Chest clear, No crepts or ronchi. GI: soft, distended, nontender, bowel sounds+. LANDSCAPE TECHNICIAN: Grossly nonfocal. Moving all four extremities. Extremities: No edema Skin: No rashes Psych: cooperative I have reviewed patient current medication list. Medications Scheduled Medication Dose/Rate, Route, Frequency Last Action amoxicillin-clavulanate (AUGMENTIN) 875-125 mg 875 mg 875 mg, oral, BID Given: 03/24 851 fluticasone (FLONASE) 50 mcg/actuation nasal spray 2 spray 2 spray, BOTH NOSTRIL, BID Give n: 03/24 851 furosemide (LASIX) tablet 20 mg 20 mg, oral, DAILY Given: 03/24 851 potassium chloride (KLOR-CON) packet 40 mEq 40 mEq, oral, BID Given: 02/13 2018 senna-docusate (SENOKOT S) 8.6-50 mg 1 tablet 1 tablet, oral, BID Given: 03/23 1031 sodium chloride (OCEAN) 0.65 % nasal spray 2 spray 2 spray, BOTH NOSTRIL, QID Given: 03/24 0851 PRN Medication Dose/Rate, Route, Frequency Last Action acetaminophen (TYLENOL) tablet 325 mg 325 mg, oral, Q4H PRN Given: 03/22 1606 albuterol (PROVENTIL, VENTOLIN) 90 mcg/actuation inhaler 2 puff 2 puff, inhl, Q4H PRN Give n: 03/21 1638 bisacodyl (DULCOLAX) suppository 10 mg 10 mg, rect, DAILY PRN Ordered dextromethorphan-guaiFENesin (ROBITUSSIN DM) 10-100 mg/5 mL liquid 10 mL 10 mL, oral, Q4H PRN Given: 03/21 2308 diphenhydrAMINE (BENADRYL) capsule 25 mg 25 mg, oral, Q6H PRN Given: 03/23 2015 guaiFENesin (ROBITUSSIN) liquid 100 mg 100 mg, oral, Q4H PRN Given: 03/22 2204 HYDROcodone-acetaminophen (NORCO) 5-325 mg tablet 1 tablet 1 tablet, oral, Q4H PRN Given: 03/23 010 ondansetron (ZOFRAN) injection 4 mg 4 mg, IV, Q12H PRN Ordered polyethylene glycol (MIRALAX) packet 34 g 34 g, oral, TID PRN Ordered Labs reviewed in [facility] CBC with diff last 72 hours (or 3 results) Recent Labs 03/17/17 0110 03/18/17 0502 WBC 6.20 5.46 HB 15.4 14.8 HCT 47.5* 44.4 PLT 189 176 Chemistries: Last 72 Hours (or 3 results): Recent Labs 03/17/17 1050 03/18/17 0503 03/18/17 1653 03/19/17 0411 NA 139 138 -- 137 K 3.7 3.8 3.4 4.9 CL 101 102 -- 101 BICARB 33* 29 -- 30 BUN 18 22* -- 25* CR 1.15* 0.99 -- 1.15* GLU 137* 88 -- 105* CA 8.9 8.2* -- 8.5* MG 1.9 -- 1.8 -- Imaging: CT/PE protocol 03/22/2017 No pulmonary embolus. Severe [...] extremities. No venous thro mbosis was detected. Assessment/Plan: 52 y/o F with past medical history of CHFpEF, rheumatic fever and arthritis at age 12 (not on Penicillin), Ulcerative Colitis (not on treatment, diet controlled), Meth use for 5 years (off meth for last 5 years), vBD (no previous thrombotic episodes), RAD, h/o heavy alcohol use presents with acute systolic CHF with EF 15% and RV dilatation and high pressures. #Acute systolic heart failure (HCC) with EF 15% with unknown etiology. # Cor Pulmonale -No evidence of thromboembolic Dz on CT PE. EULOGIO negative, RF negative,[place]/ Lambda 28.6H/2 5.2N, ratio 1.13N, SPEP without monoclonal gammopathy. TSH very mildly elevated -5. Viral he patitis panel negative, U tox negative except oxycodone. HIV negative. Echocardiogram with large mobile echodensity concerning for a saddle PE. However confirmatory CTA chest did not show a large PE. Pulmonary and hematology recommended to stop heparin gtt last night given low suspicion for PE/CTEPH. --Checking Scl-70 --Order PFT with [facility]. --Plan for full RHC on . --Appreciate Heart Failure/Transplant team recommendations --No further diuresis per HF. --Follow I/O, BMP, BNP 2135 --Start ACEi when OK with HF. --Added lasix 20mg PO daily per HF recs. # Hypokalemia/HypoMg: supplement PRN. Continue Klor 40mg BID. # Tooth pain - will order panorex to further clarify. Not done yesterday, will follow up on this today. - Consult dentistry if abscesses are present. - starting Augmentin for suspected sinusitis. # Acute Sinusitis - Symptoms consistent with acute sinusitis. - start Augmentin 875mg BID x5-7 days. Today is Day 3. - Flonase BID. #ALONDRA (acute kidney injury) - resolved - Had some increase in creatinine 1.6, with diuresis at OSH. - stable, continue to monitor BMP daily. - Holding home lisinopril for now # UC-- Has been managed primarily bit "diet" with occ need for corticosteroids or 5-ASA com pounds. --Currently stable, monitor for symptoms #Chronic cough #Reactive airway disease-- Cough likely related to heart failure and potentially underl lakeisha disease process (?Meth toxicity, CTD? As very strong FH and h/o miscarriages, dry mouth ) that has led to Cor Pulmonale. --Albuterol PRN #Von Willebrand disease (HCC): no thrombotic episodes. Only persistent bleeding from sm all injuries #History of inhalational methamphetamine abuse--Reports no active use -- U Tox negative except for oxycodone DVT prophylaxis: heparin SQ GI prophylaxis: not applicable Code: Full IP due to above medical problems Dispo: pending workup. Virginie Hatfield MD Landscape Architect And Plannersaturator Clinical Hospitalist Division of Hospital Medicine [facility] [place] Pager [phone] Virginie Chaudhary MD - 03/23/2017 2:08 PM PST HOSPITALIST INPATIENT PROGRESS NOTE Hospital Day: 6 Attending Physician: Virginie Hatfield MD Interval History: Overnight CTA chest was negative for PE, and heparin gtt was therefore st opped per Heme and Pulmonary recommendations. Patient had a brief episode of bleeding from her RHC entry site while on the heparin gtt but resolved with holding pressure. Subjective: Upper respiratory congestion and cough are much improved since starting antibi otics. Physical Exam: Last 24 hour min/max Temp: 36.5 C (97.7 F) Temp Min: 36.3 C (97.3 F) Max: 36.7 C (98.1 F) Pulse: 80 Pulse Min: 80 Max: 91 Resp: 18 Resp Min: 17 Max: 18 BP: 121/70 BP Min: 117/76 Max: 128/90 SpO2: 94 % SpO2 Min: 94 % Max: 98 % Body mass index is 25.94 kg/m. General : Alert and oriented x 3. cooperative HEENT: Left maxillary sinus tenderness to palpation. JVD to 2cm above the clavicle. CVS: S1 & S2 regular, rhythm. SM+ at LUSB R/S: Chest clear, No crepts or ronchi. GI: soft, distended, nontender, bowel sounds+. LANDSCAPE TECHNICIAN: Grossly nonfocal. Moving all four extremities. Extremities: No edema Skin: No rashes Psych: cooperative I have reviewed patient current medication list. Medications Scheduled Medication Dose/Rate, Route, Frequency Last Action amoxicillin-clavulanate (AUGMENTIN) 875-125 mg 875 mg 875 mg, oral, BID Given: 03/23 1031 fluticasone (FLONASE) 50 mcg/actuation nasal spray 2 spray 2 spray, BOTH NOSTRIL, BID Give n: 03/23 1031 potassium chloride (KLOR-CON) packet 40 mEq 40 mEq, oral, BID Given: 03/23 1031 senna-docusate (SENOKOT S) 8.6-50 mg 1 tablet 1 tablet, oral, BID Given: 03/23 1031 sodium chloride (OCEAN) 0.65 % nasal spray 2 spray 2 spray, BOTH NOSTRIL, QID Given: 03/23 1031 PRN Medication Dose/Rate, Route, Frequency Last Action acetaminophen (TYLENOL) tablet 325 mg 325 mg, oral, Q4H PRN Given: 03/22 1606 albuterol (PROVENTIL, VENTOLIN) 90 mcg/actuation inhaler 2 puff 2 puff, inhl, Q4H PRN Give n: 03/21 1638 bisacodyl (DULCOLAX) suppository 10 mg 10 mg, rect, DAILY PRN Ordered dextromethorphan-guaiFENesin (ROBITUSSIN DM) 10-100 mg/5 mL liquid 10 mL 10 mL, oral, Q4H PRN Given: 03/21 2308 diphenhydrAMINE (BENADRYL) capsule 25 mg 25 mg, oral, Q6H PRN Given: 03/22 2204 guaiFENesin (ROBITUSSIN) liquid 100 mg 100 mg, oral, Q4H PRN Given: 03/22 2204 HYDROcodone-acetaminophen (NORCO) 5-325 mg tablet 1 tablet 1 tablet, oral, Q4H PRN Given: 03/23 103 ondansetron (ZOFRAN) injection 4 mg 4 mg, IV, Q12H PRN Ordered polyethylene glycol (MIRALAX) packet 34 g 34 g, oral, TID PRN Ordered Labs reviewed in [facility] CBC with diff last 72 hours (or 3 results) Recent Labs 03/17/17 0110 03/18/17 0502 WBC 6.20 5.46 HB 15.4 14.8 HCT 47.5* 44.4 PLT 189 176 Chemistries: Last 72 Hours (or 3 results): Recent Labs 03/17/17 1050 03/18/17 0503 03/18/17 1653 03/19/17 0411 NA 139 138 -- 137 K 3.7 3.8 3.4 4.9 CL 101 102 -- 101 BICARB 33* 29 -- 30 BUN 18 22* -- 25* CR 1.15* 0.99 -- 1.15* GLU 137* 88 -- 105* CA 8.9 8.2* -- 8.5* MG 1.9 -- 1.8 -- Imaging: CT/PE protocol 03/22/2017 No pulmonary embolus. Severe [...] extremities. No venous thro mbosis was detected. Assessment/Plan: 52 y/o F with past medical history of CHFpEF, rheumatic fever and arthritis at age 12 (not on Penicillin), Ulcerative Colitis (not on treatment, diet controlled), Meth use for 5 years (off meth for last 5 years), vBD (no previous thrombotic episodes), RAD, h/o heavy alcohol use presents with acute systolic CHF with EF 15% and RV dilatation and high pressures. #Acute systolic heart failure (HCC) with EF 15% with unknown etiology. # Cor Pulmonale -No evidence of thromboembolic Dz on CT PE. EULOGIO negative, RF negative,[place]/ Lambda 28.6H/2 5.2N, ratio 1.13N, SPEP without monoclonal gammopathy. TSH very mildly elevated -5. Viral he patitis panel negative, U tox negative except oxycodone. HIV negative. Echocardiogram with large mobile echodensity concerning for a saddle PE. However confirmatory CTA chest did not show a large PE. Pulmonary and hematology recommended to stop heparin gtt last night given low suspicion for PE/CTEPH. --Checking Scl-70 --Order PFT with [facility]. --Plan for full RHC on . --Appreciate Heart Failure/Transplant team recommendations --No further diuresis per HF. --Follow I/O, BMP, NtroBNP 0 --Start ACEi when OK with HF. # Hypokalemia/HypoMg: supplement PRN. Continue Klor 40mg BID. # Tooth pain - will order panorex to further clarify. Not done yesterday, will follow up on this today. - Consult dentistry if abscesses are present. - starting Augmentin for suspected sinusitis. # Acute Sinusitis - Symptoms consistent with acute sinusitis. - start Augmentin 875mg BID x5-7 days. Today is Day 2. - Flonase BID. #ALONDRA (acute kidney injury) - resolved - Had some increase in creatinine 1.6, with diuresis at OSH. - stable, continue to monitor BMP daily. - Holding home lisinopril for now # UC-- Has been managed primarily bit "diet" with occ need for corticosteroids or 5-ASA com pounds. --Currently stable, monitor for symptoms #Chronic cough #Reactive airway disease-- Cough likely related to heart failure and potentially underl lakeisha disease process (?Meth toxicity, CTD? As very strong FH and h/o miscarriages, dry mouth ) that has lead to Cor Pulmonale. --Albuterol PRN #Von Willebrand disease (HCC): no thrombotic episodes. Only persistent bleeding from sm all injuries #History of inhalational methamphetamine abuse--Reports no active use -- U Tox negative except for oxycodone DVT prophylaxis: SCD/heparin GI prophylaxis: not applicable Code: Full IP due to above medical problems Dispo: pending workup. Virginie Hatfield MD Landscape Architect And Plannersaturator Clinical Hospitalist Division of Hospital Medicine [facility] Pager [phone] ARadha Ulloa RDMS - 03/11 9:30 AM PSTTransthoracic echocardiogram completed. Final report to follow. Virginie Chaudhary MD - 03/11 7:59 AM PST HOSPITALIST INPATIENT PROGRESS NOTE Hospital Day: 5 Attending Physician: Virginie Hatfield MD Interval Hx: Weight stable at 160lb (161 yesterday). Net negative 734cc yesterday. Subjective: Complaining this morning of nasal congestion, cough overnight. She also report s sinus pressure/pain. Physical Exam: Last 24 hour min/max Temp: 36.6 C (97.9 F) Temp Min: 36.4 C (97.5 F) Max: 36.7 C (98.1 F) Pulse: 83 Pulse Min: 83 Max: 92 Resp: 18 Resp Min: 16 Max: 18 BP: 105/59 BP Min: 105/59 Max: 127/81 SpO2: 96 % SpO2 Min: 92 % Max: 99 % Body mass index is 25.9 kg/m. General : Alert and oriented x 3. cooperative HEENT: Left maxillary sinus tenderness to palpation. JVD to 2cm above the clavicle. CVS: S1 & S2 regular, rhythm. SM+ at LUSB R/S: Chest clear, No crepts or ronchi. GI: soft, distended, nontender, bowel sounds+. LANDSCAPE TECHNICIAN: Grossly nonfocal. Moving all four extremities. Extremities: No edema Skin: No rashes Psych: cooperative I have reviewed patient current medication list. Medications Scheduled Medication Dose/Rate, Route, Frequency Last Action amoxicillin-clavulanate (AUGMENTIN) 875-125 mg 875 mg 875 mg, oral, BID Ordered furosemide (LASIX) injection 40 mg 40 mg, IV, BID ( and ) Given: 03/21 1637 heparin, porcine (PF) injection 5,000 Units 5,000 Units, subQ, Q8H Given: 03/22 447 potassium chloride (KLOR-CON) packet 40 mEq 40 mEq, oral, BID Given: 03/21 2021 senna-docusate (SENOKOT S) 8.6-50 mg 1 tablet 1 tablet, oral, BID Given: 03/19 2106 PRN Medication Dose/Rate, Route, Frequency Last Action albuterol (PROVENTIL, VENTOLIN) 90 mcg/actuation inhaler 2 puff 2 puff, inhl, Q4H PRN Give n: 03/21 163 bisacodyl (DULCOLAX) suppository 10 mg 10 mg, rect, DAILY PRN Ordered dextromethorphan-guaiFENesin (ROBITUSSIN DM) 10-100 mg/5 mL liquid 10 mL 10 mL, oral, Q4H PRN Given: 03/21 2308 diphenhydrAMINE (BENADRYL) capsule 25 mg 25 mg, oral, Q6H PRN Given: 03/22 38 guaiFENesin (ROBITUSSIN) liquid 100 mg 100 mg, oral, Q4H PRN Given: 03/21 1948 HYDROcodone-acetaminophen (NORCO) 5-325 mg tablet 1 tablet 1 tablet, oral, Q4H PRN Given: 03/20 2099 ondansetron (ZOFRAN) injection 4 mg 4 mg, IV, Q12H PRN Ordered polyethylene glycol (MIRALAX) packet 34 g 34 g, oral, TID PRN Ordered Labs reviewed in [facility] CBC with diff last 72 hours (or 3 results) Recent Labs 03/17/17 0110 03/18/17 0502 WBC 6.20 5.46 HB 15.4 14.8 HCT 47.5* 44.4 PLT 189 176 Chemistries: Last 72 Hours (or 3 results): Recent Labs 03/17/17 1050 03/18/17 0503 03/18/17 1653 03/19/17 0411 NA 139 138 -- 137 K 3.7 3.8 3.4 4.9 CL 101 102 -- 101 BICARB 33* 29 -- 30 BUN 18 22* -- 25* CR 1.15* 0.99 -- 1.15* GLU 137* 88 -- 105* CA 8.9 8.2* -- 8.5* MG 1.9 -- 1.8 -- Imaging: no new imaging Assessment/Plan: 52 y/o F with past medical history of CHFpEF, rheumatic fever and arthritis at age 12 (not on Penicillin), Ulcerative Colitis (not on treatment, diet controlled), Meth use for 5 years (off meth for last 5 years), vBD (no previous thrombotic episodes), RAD, h/o heavy alcohol use presents with acute systolic CHF with EF 15% and RV dilatation and high pressures. #Acute systolic heart failure (HCC) with EF 15% with unknown etiology. # Cor Pulmonale -No evidence of thromboembolic Dz on CT PE. EULOGIO negative, RF negative,[place]/ Lambda 28.6H/2 5.2N, ratio 1.13N, SPEP without monoclonal gammopathy. TSH very mildly elevated -5. Viral he patitis panel negative, U tox negative except oxycodone --HIV negative --RHC +angiogram with biopsy planned for today. --Appreciate Heart Failure/Transplant team recommendations --Currently getting BID lasix per HF service. Will continue until her Cr bumps. --Follow I/O, BMP, NtroBNP 4355 --Start ACEi when OK with HF. # Hypokalemia/HypoMg: supplement PRN. Continue Klor 40mg BID. # Tooth pain - will order panorex to further clarify. Not done yesterday, will follow up on this today. - Consult dentistry if abscesses present - starting Augmentin for suspected sinusitis. # Acute Sinusitis - Symptoms consistent with acute sinusitis. - start Augmentin 875mg BID x5-7 days. - Flonase BID. #ALONDRA (acute kidney injury) - resolved - Had some increase in creatinine 1.6, with diuresis at OSH. - stable, continue to monitor BMP daily. - Holding home lisinopril for now # UC-- Has been managed primarily bit "diet" with occ need for corticosteroids or 5-ASA com pounds. --Currently stable, monitor for symptoms #Chronic cough #Reactive airway disease-- Cough likely related to heart failure and potentially underl lakeisha disease process (?Meth toxicity, CTD? As very strong FH and h/o miscarriages, dry mouth ) that has lead to Cor Pulmonale. --Albuterol PRN #Von Willebrand disease (HCC): no thrombotic episodes. Only persistent bleeding from sm all injuries #History of inhalational methamphetamine abuse--Reports no active use -- U Tox negative except for oxycodone DVT prophylaxis: SCD/heparin GI prophylaxis: not applicable Code: Full IP due to above medical problems Dispo: Possible RHC today. Home pending clinical improvement. Virginie Hatfield MD Landscape Architect And Plannersaturator Clinical Hospitalist Division of Hospital Medicine [facility] Pager [phone] Addendum Echocardiogram: 1. The left ventricular cavity size is [...] are no prior exams available for comparison. Discussed results with HF service. Will order labs and start heparin gtt now. Will have C TA images from OSH pushed to [facility]. Discussed these results with patient as well. Electron ically signed by Virginie Hatfield MD at 03/22/2017 11:26 AM PSTLiu, MD Virginie - 03/21/2017 10:25 AM PST HOSPITALIST INPATIENT PROGRESS NOTE Hospital Day: 4 Attending Physician: Virginie Hatfield MD Interval Hx: Weaned off oxygen yesterday. Fluid status is net negative 2.6 L yesterday. Weight down to 161 lb from 165lb. Subjective: Breathing is much easier today. Complaining of some drainage from 2 "abscess t eeth." She has not seen a dentist for this yet, and has had no imaging. Patient denies chest pain/Nausea/vomiting/diarrhea. Physical Exam: Last 24 hour min/max Temp: 36.4 C (97.5 F) Temp Min: 36.3 C (97.3 F) Max: 36.6 C (97.9 F) Pulse: 86 Pulse Min: 79 Max: 90 Resp: 18 Resp Min: 16 Max: 18 BP: 115/73 BP Min: 104/68 Max: 126/78 SpO2: 96 % SpO2 Min: 93 % Max: 96 % Body mass index is 26.01 kg/m. General : Alert and oriented x 3. cooperative HEENT: Moist oral mucosa. JVD up 3cm above the clavicle. HJR to the earlobe CVS: S1 & S2 regular, rhythm. SM+ at LUSB R/S: Chest clear, No crepts or ronchi. GI: soft, distended, nontender, bowel sounds+. LANDSCAPE TECHNICIAN: Grossly nonfocal. Moving all four extremities. Extremities: No edema Skin: No rashes Psych: cooperative I have reviewed patient current medication list. Medications Scheduled Medication Dose/Rate, Route, Frequency Last Action furosemide (LASIX) injection 40 mg 40 mg, IV, BID ( and ) Given: 03/21 913 heparin, porcine (PF) injection 5,000 Units 5,000 Units, subQ, Q8H Given: 03/21 441 potassium chloride (KLOR-CON) packet 40 mEq 40 mEq, oral, BID Given: 03/21 913 senna-docusate (SENOKOT S) 8.6-50 mg 1 tablet 1 tablet, oral, BID Given: 03/19 2106 PRN Medication Dose/Rate, Route, Frequency Last Action albuterol (PROVENTIL, VENTOLIN) 90 mcg/actuation inhaler 2 puff 2 puff, inhl, Q4H PRN Orde red bisacodyl (DULCOLAX) suppository 10 mg 10 mg, rect, DAILY PRN Ordered diphenhydrAMINE (BENADRYL) capsule 25 mg 25 mg, oral, Q6H PRN Given: 03/20 1930 guaiFENesin (ROBITUSSIN) liquid 100 mg 100 mg, oral, Q4H PRN Given: 03/21 928 HYDROcodone-acetaminophen (NORCO) 5-325 mg tablet 1 tablet 1 tablet, oral, Q4H PRN Given: 03/20 2099 ondansetron (ZOFRAN) injection 4 mg 4 mg, IV, Q12H PRN Ordered polyethylene glycol (MIRALAX) packet 34 g 34 g, oral, TID PRN Ordered Labs reviewed in [facility] CBC with diff last 72 hours (or 3 results) Recent Labs 03/17/17 0110 03/18/17 0502 WBC 6.20 5.46 HB 15.4 14.8 HCT 47.5* 44.4 PLT 189 176 Chemistries: Last 72 Hours (or 3 results): Recent Labs 03/17/17 1050 03/18/17 0503 03/18/17 1653 03/19/17 0411 NA 139 138 -- 137 K 3.7 3.8 3.4 4.9 CL 101 102 -- 101 BICARB 33* 29 -- 30 BUN 18 22* -- 25* CR 1.15* 0.99 -- 1.15* GLU 137* 88 -- 105* CA 8.9 8.2* -- 8.5* MG 1.9 -- 1.8 -- Imaging: no new imaging Assessment/Plan: 52 y/o F with past medical history of CHFpEF, rheumatic fever and arthritis at age 12 (not on Penicillin), Ulcerative Colitis (not on treatment, diet controlled), Meth use for 5 years (off meth for last 5 years), vBD (no previous thrombotic episodes), RAD, h/o heavy alcohol use presents with acute systolic CHF with EF 15% and RV dilatation and high pressures. #Acute systolic heart failure (HCC) with EF 15% with unknown etiology. # Cor Pulmonale -No evidence of thromboembolic Dz on CT PE. EULOGIO negative, RF negative,[place]/ Lambda 28.6H/2 5.2N, ratio 1.13N, SPEP without monoclonal gammopathy. TSH very mildly elevated -5. Viral he patitis panel negative, U tox negative except oxycodone --HIV negative --RHC +angiogram with biopsy planned for Wednesday. --Appreciate Heart Failure/Transplant team recommendations --Currently getting BID lasix per HF service. Will continue until her Cr bumps. --Follow I/O, BMP, NtroBNP 2135 --BP has been in range and if tolerant can start AGUEDA-I later today or tomorrow. Will discu ss with HF. # Hypokalemia/HypoMg: supplement PRN. Continue Klor 40mg BID. # Tooth pain - will order panorex to further clarify. - Consult dentistry if abscesses present #ALONDRA (acute kidney injury)-Had some increase in creatinine 1.6, with diuresis at OSH. --stable, continue to monitor BMP daily, today slight bump 1.1 --Holding home lisinopril for now # UC-- Has been managed primarily bit "diet" with occ need for corticosteroids or 5-ASA com pounds. --Currently stable, monitor for symptoms #Chronic cough #Reactive airway disease-- Cough likely related to heart failure and potentially underl lakeisha disease process (?Meth toxicity, CTD? As very strong FH and h/o miscarriages, dry mouth ) that has lead to Cor Pulmonale. --Albuterol PRN #Von Willebrand disease (HCC): no thrombotic episodes. Only persistent bleeding from sm all injuries #History of inhalational methamphetamine abuse--Reports no active use -- U Tox negative except for oxycodone DVT prophylaxis: SCD/heparin GI prophylaxis: not applicable Code: Full IP due to above medical problems Dispo: TBD, possibly RHC Wednesday. Virginie Hatfield MD Landscape Architect And Plannersaturator Clinical Hospitalist Division of Hospital Medicine [facility] Pager [phone] [facility], [facility] Virginie - 03/20/2017 8:06 AM PST HOSPITALIST INPATIENT PROGRESS NOTE Hospital Day: 3 Attending Physician: Virginie Hatfield MD Interval Hx: This morning desaturated to 89% and was put on oxymask 2L. Patient denied SOB at the time. Net negative 3.5L yesterday. Weight down to 165lb from 170lb. Patient denies chest pain/Nausea/vomiting/diarrhea. Physical Exam: Last 24 hour min/max Temp: 36.5 C (97.7 F) Temp Min: 36.4 C (97.5 F) Max: 36.7 C (98.1 F) Pulse: 79 Pulse Min: 75 Max: 89 Resp: 16 Resp Min: 16 Max: 18 BP: 106/69 BP Min: 103/65 Max: 138/75 SpO2: 97 % SpO2 Min: 89 % Max: 99 % Body mass index is 26.69 kg/m. General : Alert and oriented x 3. cooperative HEENT: Moist oral mucosa. JVD up 3cm above the clavicle. CVS: S1 & S2 regular, rhythm. SM+ at LUSB R/S: Chest clear, No crepts or ronchi. GI: soft, distended, nontender, bowel sounds+. LANDSCAPE TECHNICIAN: Grossly nonfocal. Moving all four extremities. Extremities: No edema Skin: No rashes Psych: cooperative I have reviewed patient current medication list. Medications Scheduled Medication Dose/Rate, Route, Frequency Last Action furosemide (LASIX) injection 40 mg 40 mg, IV, BID ( and ) Given: 03/19 1716 heparin, porcine (PF) injection 5,000 Units 5,000 Units, subQ, Q8H Given: 03/20 617 potassium chloride SR (K-DUR) tablet 40 mEq 40 mEq, oral, BID Given: 03/19 2106 senna-docusate (SENOKOT S) 8.6-50 mg 1 tablet 1 tablet, oral, BID Given: 03/19 2106 PRN Medication Dose/Rate, Route, Frequency Last Action albuterol (PROVENTIL, VENTOLIN) 90 mcg/actuation inhaler 2 puff 2 puff, inhl, Q4H PRN Orde red bisacodyl (DULCOLAX) suppository 10 mg 10 mg, rect, DAILY PRN Ordered diphenhydrAMINE (BENADRYL) capsule 25 mg 25 mg, oral, Q6H PRN Given: 03/19 1899 guaiFENesin (ROBITUSSIN) liquid 100 mg 100 mg, oral, Q4H PRN Given: 03/19 2128 HYDROcodone-acetaminophen (NORCO) 5-325 mg tablet 1 tablet 1 tablet, oral, Q4H PRN Given: 03/19 2236 ondansetron (ZOFRAN) injection 4 mg 4 mg, IV, Q12H PRN Ordered polyethylene glycol (MIRALAX) packet 34 g 34 g, oral, TID PRN Ordered Labs reviewed in [facility] CBC with diff last 72 hours (or 3 results) Recent Labs 03/17/17 0110 03/18/17 0502 WBC 6.20 5.46 HB 15.4 14.8 HCT 47.5* 44.4 PLT 189 176 Chemistries: Last 72 Hours (or 3 results): Recent Labs 03/17/17 1050 03/18/17 0503 03/18/17 1653 03/19/17 0411 NA 139 138 -- 137 K 3.7 3.8 3.4 4.9 CL 101 102 -- 101 BICARB 33* 29 -- 30 BUN 18 22* -- 25* CR 1.15* 0.99 -- 1.15* GLU 137* 88 -- 105* CA 8.9 8.2* -- 8.5* MG 1.9 -- 1.8 -- Imaging: no new imaging Assessment/Plan: 52 y/o F with past medical history of CHFpEF, rheumatic fever and arthritis at age 12 (not on Penicillin), Ulcerative Colitis (not on treatment, diet controlled), Meth use for 5 years (off meth for last 5 years), vBD (no previous thrombotic episodes), RAD, h/o heavy alcohol use presents with acute systolic CHF with EF 15% and RV dilatation and high pressures. #Acute systolic heart failure (HCC) with EF 15% with unknown etiology. # Cor Pulmonale -No evidence of thromboembolic Dz on CT PE. EULOGIO negative, RF negative,[place]/ Lambda 28.6H/2 5.2N, ratio 1.13N, SPEP without monoclonal gammopathy. TSH very mildly elevated -5. Viral he patitis panel negative, U tox negative except oxycodone --HIV negative --RHC +angiogram with biopsy planned for Wednesday. --Appreciate Heart Failure/Transplant team recommendations --Currently getting BID lasix per HF service. --Follow I/O, BMP, NtroBNP 2135 --BP has been in range and if tolerant can start AGUEDA-I later today or tomorrow # Hypokalemia/HypoMg: supplement PRN. No supplementation needed today. #ALONDRA (acute kidney injury)-Had some increase in creatinine 1.6, with diuresis at OSH. --stable, continue to monitor BMP daily, today slight bump 1.1 --Holding home lisinopril for now # UC-- Has been managed primarily bit "diet" with occ need for corticosteroids or 5-ASA com pounds. --Currently stable, monitor for symptoms #Chronic cough #Reactive airway disease-- Cough likely related to heart failure and potentially underl lakeisha disease process (?Meth toxicity, CTD? As very strong FH and h/o miscarriages, dry mouth ) that has lead to Cor Pulmonale. --Albuterol PRN #Von Willebrand disease (HCC): no thrombotic episodes. Only persistent bleeding from sm all injuries #History of inhalational methamphetamine abuse--Reports no active use -- U Tox negative except for oxycodone DVT prophylaxis: SCD/heparin GI prophylaxis: not applicable Code: Full IP due to above medical problems Dispo: TBD, possibly after RHC on Wednesday. Virginie Hatfield MD Landscape Architect And Plannersaturator Clinical Hospitalist Division of Hospital Medicine [facility] Pager [phone] Elida Francis MD - 2017 7:32 AM PST HOSPITALIST INPATIENT PROGRESS NOTE Hospital Day: 2 Attending Physician: ELIDA LONG MD Interval Hx: No ON events Net negative 3390 ml, weight dropped from 177 lb to 170 lbs in last 2 days. Welch cramps on right side of kidney. No leg cramps, no palpitation. Some GI cramps yesterda y night after potassium, no diarrhea. No dysuria, no hematuria. Patient denies chest pain/Nausea/vomiting/diarrhea/ Physical Exam: Last 24 hour min/max Temp: 36.6 C (97.9 F) Temp Min: 36.3 C (97.3 F) Max: 36.6 C (97.9 F) Pulse: 75 Pulse Min: 74 Max: 86 Resp: 16 Resp Min: 16 Max: 18 BP: 117/79 BP Min: 105/78 Max: 145/89 SpO2: 95 % SpO2 Min: 93 % Max: 96 % Body mass index is 27.58 kg/m. General : Alert and oriented x 3. cooperative HEENT: Moist oral mucosa. JVD still up to the ear lobe while CVS: S1 & S2 regular, rhythm. SM+ at LUSB, not so well heard today. R/S: Chest clear, No crepts or ronchi. GI: soft, distended, nontender, bowel sounds+. LANDSCAPE TECHNICIAN: Grossly nonfocal. Moving all four extremities. Extremities: Trace peripheral edema. Skin: No rashes Psych: cooperative I have reviewed patient current medication list. Medications Scheduled Medication Dose/Rate, Route, Frequency Last Action furosemide (LASIX) injection 40 mg 40 mg, IV, BID () Given: 03/18 150 heparin, porcine (PF) injection 5,000 Units 5,000 Units, subQ, Q8H Given: 03/19 601 potassium chloride SR (K-DUR) tablet 20 mEq 20 mEq, oral, BID Ordered senna-docusate (SENOKOT S) 8.6-50 mg 1 tablet 1 tablet, oral, BID Given: 03/18 2014 PRN Medication Dose/Rate, Route, Frequency Last Action albuterol (PROVENTIL, VENTOLIN) 90 mcg/actuation inhaler 2 puff 2 puff, inhl, Q4H PRN Orde red bisacodyl (DULCOLAX) suppository 10 mg 10 mg, rect, DAILY PRN Ordered diphenhydrAMINE (BENADRYL) capsule 25 mg 25 mg, oral, Q6H PRN Given: 03/19 0004 HYDROcodone-acetaminophen (NORCO) 5-325 mg tablet 1 tablet 1 tablet, oral, Q4H PRN Given: 03/18 2114 ondansetron (ZOFRAN) injection 4 mg 4 mg, IV, Q12H PRN Ordered polyethylene glycol (MIRALAX) packet 34 g 34 g, oral, TID PRN Ordered Labs reviewed in [facility] CBC with diff last 72 hours (or 3 results) Recent Labs 03/17/17 0110 03/18/17 0502 WBC 6.20 5.46 HB 15.4 14.8 HCT 47.5* 44.4 PLT 189 176 Chemistries: Last 72 Hours (or 3 results): Recent Labs 03/17/17 1050 03/18/17 0503 03/18/17 1653 03/19/17 0411 NA 139 138 -- 137 K 3.7 3.8 3.4 4.9 CL 101 102 -- 101 BICARB 33* 29 -- 30 BUN 18 22* -- 25* CR 1.15* 0.99 -- 1.15* GLU 137* 88 -- 105* CA 8.9 8.2* -- 8.5* MG 1.9 -- 1.8 -- Imaging: no new imaging Assessment/Plan: 52 y/o F with past medical history of CHFpEF, rheumatic fever and arthritis at age 12 (not on Penicillin), Ulcerative Colitis (not on treatment, diet controlled), Meth use for 5 years (off meth for last 5 years), vBD (no previous thrombotic episodes), RAD, h/o heavy alcohol use presents with acute systolic CHF with EF 15% and RV dilatation and high pressures. #Acute systolic heart failure (HCC) with EF 15% with unknown etiology. # Cor Pulmonale -No evidence of thromboembolic Dz on CT PE. EULOGIO negative, RF negative,[place]/ Lambda 28.6H/2 5.2N, ratio 1.13N, SPEP without monoclonal gammopathy. TSH very mildly elevated -5. Viral he patitis panel negative, U tox negative except oxycodone --HIV pending, --RHC +angiogram once patient diuresed adequately ----Appreciate Heart Failure/Transplant team recommendations --Might have to cut down diuresis depending on the initial response today --Will decrease to 40mg Lasix IV daily Goal 1-2 L negative --Follow I/O, BMP, NtroBNP 2134 --BP has been in range and if tolerant can start AGUEDA-I later today or tomorrow # Hypokalemia/HypoMg: was supplemented yesterday and will follow regularly. For now decreas e to KCl 20 meq daily depending on K in afternoon. #ALONDRA (acute kidney injury)-Had some increase in creatinine 1.6, with diuresis at OSH. --stable, continue to monitor BMP daily, today slight bump 1.1 --Holding home lisinopril for now # UC-- Has been managed primarily bit "diet" with occ need for corticosteroids or 5-ASA com pounds. --Currently stable, monitor for symptoms #Chronic cough #Reactive airway disease-- Cough likely related to heart failure and potentially underl lakeisha disease process (?Meth toxicity, CTD? As very strong FH and h/o miscarriages, dry mouth ) that has lead to Cor Pulmonale. --Albuterol PRN #Von Willebrand disease (HCC): no thrombotic episodes. Only persistent bleeding from sm all injuries #History of inhalational methamphetamine abuse--Reports no active use -- U Tox negative except for oxycodone Addend: discussed with cards again and will like BID lasix. So ordered extra K also. DVT prophylaxis: SCD/heparin GI prophylaxis: not applicable Code: Full IP due to above medical problems Dispo: TBD, possibly after RHC on Wednesday. Elida Long Pager: [phone] Asst saturator Division of Hospital Medicine [facility] I spent more than 36 minutes [id number] with the patient of which greater than 50% was sp ent counseling the patient regarding future course and medications, discussed with patient, RN and cardiology team. Elida Francis MD - 0 03/18/2017 7:51 AM PST HOSPITALIST INPATIENT PROGRESS NOTE Hospital Day: 1 Attending Physician: ELIDA LONG MD Interval Hx: Patient got 40 mg intravenous lasix bid and negative 1464 ml. Plan for RHC today. Patient denies chest pain/Nausea/vomiting/diarrhea/constipation. Less shortness of breath a nd took shower yesterday. Less LE swelling. H/o multiple miscarriages, dry mouth, no dry ice, itching all over the body. No DVT/PE/thro mbotic disorder. Very strong h/o lupus and RA in family. H/o bleeding due to vBD. H/o biopsy proven UC and has needed steroids/sulfa drugs and diet modification in last years. Last col onoscopy in 1999. Doesn't have GE. CHF Diagnosed by Primary care physician last year by BNP and shortness of breath. Physical Exam: Last 24 hour min/max Temp: 36.5 C (97.7 F) Temp Min: 36.3 C (97.3 F) Max: 36.6 C (97.9 F) Pulse: 83 Pulse Min: 75 Max: 84 Resp: 16 Resp Min: 16 Max: 20 BP: 111/73 BP Min: 111/73 Max: 138/86 SpO2: 94 % SpO2 Min: 92 % Max: 97 % Body mass index is 28.18 kg/m. General : Alert and oriented x 3. cooperative HEENT: Moist oral mucosa. JVD to the ear lobe CVS: S1 & S2 regular, rhythm. SM+ best at LUSB R/S: Chest clear, no crepts or ronchi. GI: soft, distended, mild diffuse tenderness/sensitivity, better than before, bowel sounds +. LANDSCAPE TECHNICIAN: Grossly nonfocal. Moving all four extremities. Extremities: 1+peripheral edema. Skin: No rashes Psych: cooperative I have reviewed patient current medication list. Medications Scheduled Medication Dose/Rate, Route, Frequency Last Action furosemide (LASIX) injection 40 mg 40 mg, IV, BID ( and ) Given: 03/17 152 heparin, porcine (PF) injection 5,000 Units 5,000 Units, subQ, Q8H Given: 03/18 06 senna-docusate (SENOKOT S) 8.6-50 mg 1 tablet 1 tablet, oral, BID Given: 03/17 2121 PRN Medication Dose/Rate, Route, Frequency Last Action albuterol (PROVENTIL, VENTOLIN) 90 mcg/actuation inhaler 2 puff 2 puff, inhl, Q4H PRN Orde red bisacodyl (DULCOLAX) suppository 10 mg 10 mg, rect, DAILY PRN Ordered diphenhydrAMINE (BENADRYL) capsule 25 mg 25 mg, oral, Q6H PRN Given: 03/17 1815 HYDROcodone-acetaminophen (NORCO) 5-325 mg tablet 1 tablet 1 tablet, oral, Q4H PRN Given: 03/17 2121 ondansetron (ZOFRAN) injection 4 mg 4 mg, IV, Q12H PRN Ordered polyethylene glycol (MIRALAX) packet 34 g 34 g, oral, TID PRN Ordered Labs reviewed in [facility] CBC with diff last 72 hours (or 3 results) Recent Labs 03/17/17 0110 03/18/17 0502 WBC 6.20 5.46 HB 15.4 14.8 HCT 47.5* 44.4 PLT 189 176 Chemistries: Last 72 Hours (or 3 results): Recent Labs 03/17/17 0110 03/17/17 1050 03/18/17 0503 NA 140 139 138 K 4.5 3.7 3.8 CL 103 101 102 BICARB 32 33* 29 BUN 21* 18 22* CR 1.15* 1.15* 0.99 GLU 95 137* 88 CA 8.4* 8.9 8.2* MG -- 1.9 -- Imaging: no new imaging CXray ordered for today. 2011: Coronary Angiogram: IMPRESSION AND PLAN 1. Normal left ventricular systolic function. 2. No significant atherosclerosis. 3. False-positive stress test. Assessment/Plan: 52 y/o F with past medical history of CHFpEF, rheumatic fever and arthritis at age 12 (not on Penicillin), possible UC (not on Treatment, diet controlled), Meth use for 5 years (off m eth for last 5 years), vBD (no previous thrombotic episodes), RAD, h/o heavy alcohol use pre sents with acute systolic CHF with EF 15% and RV dilatation and high pressures. # Acute systolic heart failure (HCC) with EF 15% with unknown etiology. # Cor Pulmonale -No evidence of thromboembolic Dz on CT PE. EULOGIO negative, RF negative,[place]/ Lambda 28.6H/2 5.2N, ratio 1.13N, SPEP without monoclonal gammopathy. TSH very mildly elevated -5 --HIV, viral hepatitis panel, pending --RHC +angioram today --U tox negative except opioids --Appreciate Heart Failure/Transplant team recommendations --Continue diuresis with 40mg Lasix IV BID Goal 1-2 L negative --Follow I/O, BMP, NtroBNP 2135 --BP has been in range and if tolerant can start AGUEDA-I later today or tomorrow # Hypokalemia: start KCl 20 meq daily. # ALONDRA (acute kidney injury)-Had some increase in creatinine 1.6, with diuresis at OSH. --stable, continue to monitor BMP daily --Holding home lisinopril for now # UC-- Has been managed primarily bit "diet" with occ need for corticosteroids or 5-ASA com pounds. --Currently stable, monitor for symptoms # Chronic cough # Reactive airway disease-- Cough likely related to heart failure and potentially underlyi ng disease process (?Meth toxicity, CTD? As very strong FH and h/o miscarriages, dry mouth) that has lead to Cor Pulmonale. --Albuterol PRN # Von Willebrand disease (HCC): no thrombotic episodes. Only persistent bleeding from smal l injuries # History of inhalational methamphetamine abuse--Reports no active use -- U Tox negative except for oxycodone DVT prophylaxis: SCD/heparin GI prophylaxis: not applicable Code: Full IP due to above medical problems Dispo: TBD Elida Long Pager: [phone] Asst saturator Division of Hospital Medicine [facility] I spent more than 36 minutes [id number] with the patient of which greater than 50% was sp ent counseling the patient regarding future course and medications. Discussed with patient, RN and cardiology. Hill Lee MD - 03/17/2017 2:46 PM PST Internal Medicine Clinical Hospitalist Service Progress Note 24 Hour Events: --Transferred from OSH for evaluation of Cor Pulmonale Current Symptoms: Continues to feel somewhat short of breath. Peeing a lot overnight. Had a little pleuritic chest pain earlier. No fever or chills. Occasional cough with clear to whitish sputum. Physical Examination: Last 24 hour min/max Temp: 36.5 C (97.7 F) Temp Min: 36.3 C (97.3 F) Max: 36.5 C (97.7 F) Pulse: 80 Pulse Min: 75 Max: 80 Resp: 20 Resp Min: 20 Max: 20 BP: 119/76 BP Min: 115/78 Max: 134/89 SpO2: 97 % SpO2 Min: 96 % Max: 98 % Body mass index is 28.61 kg/m. I/O Intake/Output Summary (Last 24 hours) at 03/17/17 1451 Last data filed at 03/17/17 1100 Gross per 24 hour Intake 810 ml Output 3800 ml Net -2990 ml GEN: no acute distress, sitting up in bed, conversant with oximask in place (6L O2) HEENT: PER, no scleral icterus Mouth: moist mucous membranes NECK: JVP elevated to the jaw HEART: RRR with no murmur, rubs or gallops LUNGS: Slight bibasilar rales, no respiratory distress ABD: soft, normal bowel sounds, nontender, no rebound or guarding EXT: mild pitting edema bilaterally, dorsalis pedis pulses intact NEURO/PSYCH: alert and orientated, appropriate affect Laboratory Interpretation: Reviewed. Stable creatinine despite diuresis here overnight. Elevated serum bicarb, but not significantly changed overnight. Imaging Interpretation: None new Assessment and Plan 52 year old woman with PMH sig for previous Meth use (reports none in 5-6 years), inflammat ory bowel disease, rheumatic fever, reactive airway disease, von willibrand dz here with acu te systolic heart failure with R>L heart failure and associated volume overload. # Chronic systolic heart failure (HCC) # Cor Pulmonale --Overall etiology uncertain. She does have left heart failure, but cardiology feels degree of right heart failure more severe and not explained simply by left side disease. No eviden ce of thromboembolic Dz on CT PE. --Checking HIV, viral hepatitis panel, U Tox --Likely RHC +angioram tomorrow --Heart Failure/Transplant team following --Continue diuresis with 40mg Lasix IV BID --Follow I/O, BMP # ALONDRA (acute kidney injury) (HCC)--Had some increase in creatinine with diuresis at OSH. C urrently stable if mildly elevated. --Monitor with daily BMP --Holding home lisinopril for now # Inflammatory Bowel Disease--Patient reports this is undifferentiated as colonoscopy/bx n ot definitive. Has been managed primarily bit "diet" with occ need for corticosteroids or 5- ASA compounds. --Currently stable, monitor for symptoms # Chronic cough # Reactive airway disease-- Cough likely related to heart failure and potentially underlyi ng disease process (?Meth toxicity, CTD?) that has lead to Cor Pulmonale. Not markedly wheez y on exam today. --Albuterol PRN # Von Willebrand disease (HCC) # History of inhalational methamphetamine abuse--Reports no active use -- U Tox to confirm # Osteoarthritis --Analgesics as necessary Diet: Low sodium PPX: Heparin Code status: Full Dispo: Pending workup of heart disease and symptomatic improvement. Patient does have famil y in town here but what sounds like minimal [facility] Attending Physician Clinical Hospitalist Services [facility] Pager [phone] 03/17/2017 2:46 PM Please call or page me with any questions or concerns. documented in this encounter H&P Notes Eric Atkins MD - 03/17/2017 12:46 AM PST INPATIENT ADMISSION HISTORY & PHYSICAL Clinical Hospitalist Service CHIEF COMPLAINT[facility] HISTORY OF PRESENT ILLNESS: Ms. Barron is a 52 yo F with a h/o ulcerative colitis, RAD, VWD, and prior inhalational me th abuse who presented with chronic, progressive cough and dyspnea, transferred from [facility] for evaluation of new severe right heart failure of uncertain etiology. [facility] Records Reviewed in-depth: - no dc summary available - admit 2 from [facility] (no available pharm tech for angiogram) - notes mention +stress test in 2010 -> angiogram "clean coronaries" - vessel captain meds as noted below in med rec - wt on admit 80.7kg - diuresed with 40mg IV lasix - seen by cardiology: first dx of HF 1 year ago with elevated BNP with sob -> lasix/lisin opril; h/o rheumatic heart disease with h/o murmur (2/6 systolic murmur noted), note CT at O +congestion -PE, D-dimer elevated, note TTE with EF 15-25% with severely dilated RV & RA, severe TR & RVSP est 47mmHg - started on digoxin for uncertain reason - Cr 1.2 2/6 -> stopped lasix (weight uptrending 1kg) - EULOGIO negative, RF negative - [place]/Lambda 28.6H/25.2N, ratio 1.13N - SPEP without monoclonal gammopathy - INR 1.4 2 Echo images pushed to our imaging repository. Pt describes: Prior HF diagnosis for dyspnea/fatigue/abnl labs, no h/o NM or arrythmia. Then started with progressive dyspnea ~Dec 2016 (on exertion, progressive -> at rest, +orth opnea), then cough started back near [place] (non-productive -> sinus infection -> green g unk -> now mostly dry), Developed around that time face and BL legs (L>R) swelling, nasal drainage -> prompted eval at hospital - flu negative. CXR was concerning -> [facility]. Did initially have fevers and chills, have gone away. +substernal chest pain and shoulder pain (aching) that radiates for sánchez (similar to prior R exploratory surgery ache). Chest pain sharp, exertional, worse with breathing & moving chest, not relieved by rest. Has noticed periodic random nausea and nbnb emesis, frothy. Episodic bloating abd pain, paroxysmal, no palliative/provocative factors. Unchanged since this all started. Notes increased abd fullness, distention. Also with diarrh ea, constant x1 year (has UC, not on meds). Remainder of ROS unremarkable. Everyone in family sick recently - nieces with flu. Usual physical activity: independent of ADLs, most active = before this started, running af ter kids without symptoms; walked 1/2 mile without stopping -> now has to stop after 20 feet . Directly admitted from OSH. No fevers/chills/sweats/malaise No orthostasis/falls/LH/+ exertional dizziness at times No eye redness/eye pain/vision changes No hearing loss/dysphagia/odynophagia/oral lesions +chest pain/no palpitations/+ dyspnea/+orthopnea/no PND +cough/no hemoptysis/+wheezing - attributes to allergies (rel'd by inhalers) +nausea/+vomiting/+diarrhea/no hematochezia/no melena/+abd pain/+abd swelling No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 syn drome. RHC with vasodilator testing is pending Recommendations: -Antitopoisomerase I (anti-Scl-70) antibody pending -formal RHC with vasodilator testing The patient was staffed and seen by Dr. Petar Brown, my attending physician who agrees with m y assessment and plan. Elise House DO Pulmonary & Critical Care Fellow Pager: [phone] signed by Cristobal Brown MD at 03/25/2017 3:30 PM PST Associated attestation - Cristobal Brown MD - 03/25/2017 3:30 PM PSTPulmonary Attending A ddendum I performed a history and physical examination of the patient and discussed her management with the resident. I reviewed the resident s note and agree with the documented findings and plan of care. DX; Pulm HTN Still being diuresed PFTs done the other day with no evidence of sig lung disease S1 s2 no RV heave, no s3 1. Plan for RHC today. Based on this will decide on vasodilator therapy 2. Cont to encourage daily ambulation I spent 35 Minutes in care today of which >50% of time devoted to education and coordinat ion of care. Nanci Kumar MD - 03/25/2017 8:02 AM PSTFormatting of this note might be different f rom the original. Pulmonary Follow Up Hospital Day:8 Interval History: Spirometry done yesterday: FEV1/FVC ratio: 79 FEV1: 89 FVC: 89 DLCO 87% Is set up to get the RHC today Still coughing some at night Physical Exam: Last 24 hour min/max Temp: 36.7 C (98.1 F) Temp Min: 36.3 C (97.3 F) Max: 36.7 C (98.1 F) Pulse: 77 Pulse Min: 74 Max: 86 Resp: 15 Resp Min: 15 Max: 18 BP: 119/70 BP Min: 115/67 Max: 130/80 SpO2: 93 % SpO2 Min: 93 % Max: 99 % Body mass index is 26.08 kg/m. Intake/Output Summary (Last 24 hours) at 03/25/17 0802 Last data filed at 03/25/17 0633 Gross per 24 hour Intake 909 ml Output 1925 ml Net -1016 ml NAD MMM, clear OP Neck supple, no LAD RRR, no M/R/G Lungs CTAB Abdomen soft, NT, ND, +BS Extremities WWP, no edema A&O, no focal deficits New Labs: Spirometry: FEV1/FVC ratio: 79 FEV1: 89 FVC: 89 New Imaging: None Previous imaging: CT/PE protocol 03/22/2017 No pulmonary embolus. Severe [...] extremities. No venous thro mbosis was detected. Impression: Gema Barron is a 52 y.o. Woman with PMH of CHFrEF, UC, alcohol abuse, who has been admit derek with acute systolic heart failure with (EF of 15%-25% and largely dilated RA and RV) and likely new diagnosis of pulm HTN. Spirometry results were normal. Will follow with results of RHC today and once PAH is confirmed will start patient on appropriate medication. Sister is very concerned about followup for patient after discharge. Social work consult wo aston be appropriate to help coordinate care. Recommendations: - Anti-Scl 70 antibodies pending - Repeat Right heart cath -- scheduled for today at 3:30 - Social work consult to address barriers to followup The patient was seen and evaluated, and the assessment and plan discussed with the attendcelso lee [employer], the note cosigner. Susana Kumar MS4 Marci Dixon A CNP - 03/25/2017 6:47 AM PST HEART FAILURE AND HEART TRANSPLANT PROGRESS NOTE Hospital Day:8 Consult Attending Physician: Darryl Ballesteros MD Interval Events: Given lasix 20mg Made 1.9L Subjective: Feels like she urinated well. Nervous about RHC Allergies: Allergies Allergen Reactions Morphine Hypotension Current medications: Current Facility-Administered Medications Medication Dose Route Frequency acetaminophen (TYLENOL) tablet 325 mg 325 mg oral Q4H PRN albuterol (PROVENTIL, VENTOLIN) 90 mcg/actuation inhaler 2 puff 2 puff inhalation Q4H PRN amoxicillin-clavulanate (AUGMENTIN) 875-125 mg 875 mg 875 mg oral BID bisacodyl (DULCOLAX) suppository 10 mg 10 mg rectal DAILY PRN dextromethorphan-guaiFENesin (ROBITUSSIN DM) 10-100 mg/5 mL liquid 10 mL 10 mL oral Q4 H PRN diphenhydrAMINE (BENADRYL) capsule 25 mg 25 mg oral Q6H PRN fluticasone (FLONASE) 50 mcg/actuation nasal spray 2 spray 2 spray both nostrils BID guaiFENesin (ROBITUSSIN) liquid 100 mg 100 mg oral Q4H PRN heparin, porcine (PF) injection 5,000 Units 5,000 Units subcutaneous Q8H HYDROcodone-acetaminophen (NORCO) 5-325 mg tablet 1 tablet 1 tablet oral Q4H PRN menthol (COUGH DROPS) lozenge 5 mg 1 lozenge oral PRN ondansetron (ZOFRAN) injection 4 mg 4 mg intravenous Q12H PRN polyethylene glycol (MIRALAX) packet 34 g 34 g oral TID PRN potassium chloride (KLOR-CON) packet 40 mEq 40 mEq oral BID senna-docusate (SENOKOT S) 8.6-50 mg 1 tablet 1 tablet oral BID sodium chloride (OCEAN) 0.65 % nasal spray 2 spray 2 spray both nostrils QID Physical Exam: Last 24 hour min/max Temp: 36.7 C (98.1 F) Temp Min: 36.3 C (97.3 F) Max: 36.7 C (98.1 F) Pulse: 77 Pulse Min: 74 Max: 86 Resp: 15 Resp Min: 15 Max: 18 BP: 119/70 BP Min: 115/67 Max: 130/80 SpO2: 93 % SpO2 Min: 93 % Max: 99 % Body mass index is 26.08 kg/m. Intake/Output Summary (Last 24 hours) at 03/25/17 0647 Last data filed at 03/25/17 0633 Gross per 24 hour Intake 1145 ml Output 1925 ml Net -780 ml General Appearance: Pleasant, alert, NAD HEENT: JVP 2 cm above clavicle at 40 degrees Respiratory: Clear to auscultation without wheezes, rales, rhonchi Cardiovascular: RRR, S1, S2, soft murmur LSB Gastrointestinal: Soft, non distended, non tender, normal bowel sounds Extremities: no rashes, warm, peripheral pulses palpable, no edema Neuro: A & O x 3 Lab: Chemistries: Last 72 Hours (or 3 results) - Refreshable Recent Labs 03/23/17 1015 03/24/17 0618 03/24/17 1156 03/25/17 0545 NA 135* 137 -- 136 K 4.3 5.3* 4.1 5.0 CL 104 106 -- 108 BICARB 24 23 -- 20* BUN 22* 25* -- 29* CR 0.86 0.91 -- 0.85 GLU 95 94 -- 106* CA 9.0 9.1 -- 8.7 MG 2.2 2.3 -- 2.3 CBC with diff last 72 hours (or 3 results) - Refreshable Recent Labs 03/23/17 1015 03/24/17 0618 03/25/17 0545 WBC 5.89 6.46 6.82 HB 17.4* 17.9* 16.9* HCT 51.5* 54.0* 50.7* PLT 186 168 176 Liver Tests: Last 72 hours (or 3 results) No results for input(s): AST, ALT, TBILI, AP, ALB, TP in the last 72 hours. Lab Results Component Value Date INRPT 1.06 03/23/2017 CTA 03/22/2017 No pulmonary embolus. Severe central pulmonary arterial, right ventricular, and right atrial enlargement consiste nt with chronic pulmonary hypertension and right heart failure. Incidental 17 mm nodule in the central left breast. Further evaluation with mammography on a non-urgent basis is recommended. TTE 03/22/2017 1. The left ventricular cavity size [...] are no prior exams available for comparison. Duplex LE 03/22/2017 Conclusions: A normal venous examination of the bilateral lower extremities. No venous thro mbosis was detected. Assessment: Gema Barron is a 52 y.o. female who presented from [facility] with a new diagnosis of heart failure, with echocardiographic evidence of severely dilated RV, RA with small underfilled LV. She diuresed well, and planning for invasive hemodynamics today with vasodilator testing Active Problem List: 1. Cardiomyopathy; unclear etiology. Severe RV, RA dilatation. 2. Pulmonary hyertension 3. Right heart failure 4. Pulmonary hypertension 5. Ulcerative colitis 6. H/o meth use 7. H/o rheumatic fever as a child 8. ALONDRA 9. Acute systolic heart failure Plan: 1.Pulmonary hypertension, likely PAH though have not determined by invasive hemodynamics . Will need vasodilator testing to determine reactive nature of hemodynamics and elucidate etiology of PH. In discussion with patient, does have history of first degree relative with connective tissue disease and personal history of methamphetamine use as well as prodrome f or possible DVT/PE burden. TTE on 03/22 was concerning for possible saddle thrombus, but CTA 03/22 did not demonstrate any acute PE. However, it was consistent with RV dilation and chr onic pulmonary hypertension. Pulmonary colleagues agree that this is likely PAH, and will c ontinue to follow. PFTs did not demonstrate lung disease -Pulmonology recs appreciated -Plan for RHC and vasodilator testing today -RT has been informed and will bring Moris to the lab -SCL-70AB pending 2. Chronic right heart failure related to pulmonary hypertension, preserved LV function: Cameron hollingsworth diuresed 20 L with improved functional classification. She was slightly net negative with oral lasix and will continue this dosing; will have invasive hemodynamics this afternoon. -Lasix 20mg po daily 3. Von willebrand deficiency: in history. Given thrombus and unclear PH history, asked heme for consult. Given no acute PE, no acute indication for AC. 4. Sinus pressure: concern for sinusitis given symptoms. Agree with Augmentin. Awaiting for mal ortho panogram read 5. Elevated T Bili: likely related to cardiac output derangements. RHC 03/25 Discharge Bundle Anticoagulation: tbd Blood glucose: n/a Continuous inotropes: n/a Drugs: tbd EP/ECHO: 03/22 Follow-up: will need 7 day with pulmonology Cardiac Rehab: will order NT pro-BNP ordered on day of discharge? Will order JASON CHARLES pager #[phone] Heart Failure and Heart Transplantation [facility] Associated attestation - Darryl Ballesteros MD - 03/26/2017 6:13 PM PSTHeart Failure and Heart Transplant Attending Note I personally interviewed the patient, performed the llamas elements of the physical examinatio n, and formulated the assessment and plan with Rosalva GOMEZ. See the above note for full details. Had RHC today with PH hemodynamics that did not completely respond to Moris. Will discuss wi pulmonary team but anticipate PDE5a inhibitor as initial therapy. This is a non billing attestation, please use Mike GOMEZ note for coding and billing pur poses. Darryl Ballesteros M.D. surgical technician Heart Failure and Heart Transplantation [facility] Nanci Kumar MD - 03/24/2017 8:02 AM PSTFormatting of this note might be different f rom the original. Pulmonary Follow Up Hospital Day: 7 Interval Hx: Updated family about plan for patient yesterday. Sister has concerns about followup as Verenice ch lives far away and she does not have a stable mode of transportation. Has V/Q scan ordered that nursing or team has not been able to cancel - nursing note to amanda sommers to mechelle team to call cardiology to cancel - ROS: Negative other than fatigue Current Facility-Administered Medications Medication acetaminophen (TYLENOL) tablet 325 mg albuterol (PROVENTIL, VENTOLIN) 90 mcg/actuation inhaler 2 puff amoxicillin-clavulanate (AUGMENTIN) 875-125 mg 875 mg bisacodyl (DULCOLAX) suppository 10 mg dextromethorphan-guaiFENesin (ROBITUSSIN DM) 10-100 mg/5 mL liquid 10 mL diphenhydrAMINE (BENADRYL) capsule 25 mg fluticasone (FLONASE) 50 mcg/actuation nasal spray 2 spray furosemide (LASIX) tablet 20 mg guaiFENesin (ROBITUSSIN) liquid 100 mg HYDROcodone-acetaminophen (NORCO) 5-325 mg tablet 1 tablet ondansetron (ZOFRAN) injection 4 mg polyethylene glycol (MIRALAX) packet 34 g potassium chloride (KLOR-CON) packet 40 mEq senna-docusate (SENOKOT S) 8.6-50 mg 1 tablet sodium chloride (OCEAN) 0.65 % nasal spray 2 spray Physical Exam: Last 24 hour min/max Temp: 36.7 C (98.1 F) Temp Min: 36.3 C (97.3 F) Max: 36.7 C (98.1 F) Pulse: 88 Pulse Min: 79 Max: 90 Resp: 18 Resp Min: 18 Max: 20 BP: 118/72 BP Min: 113/67 Max: 127/90 SpO2: 96 % SpO2 Min: 91 % Max: 96 % Body mass index is 26.08 kg/m. Intake/Output Summary (Last 24 hours) at 03/24/17 0802 Last data filed at 03/24/17 0644 Gross per 24 hour Intake 1673 ml Output 1475 ml Net 198 ml Weight change: 0.4 kg (14.1 oz) Significant Labs/Cultures/Images: - Anti-Scl 70 pending Images CXR (03/21): Clear lungs CTA chest (03/22): No pulmonary embolus. Severe central pulmonary arterial, right ventricular, and right atrial enlargement consiste nt with chronic pulmonary hypertension and right heart failure. Echo (03/22) : 1. The left ventricular cavity size is [...] are no prior exams available for comparison. LE doppler 03/22/17 Conclusions: A normal venous examination of the bilateral lower extremities. No venous thro mbosis was detected. RHC 03/22/17-- terminated early due to concern for PE HEART [id number] per minute RHYTHM: Sinus Blood [id number] PRESSURES: RA7 m mHg RV65/ 10mmHg Impression: Gema Barron is a 52 y.o. Woman with PMH of CHFrEF, UC, alcohol abuse, who has been admit derek with acute systolic heart failure with (EF of 15%-25% and largely dilated RA and RV) and likely new diagnosis of pulm HTN. Will continue to follow until results of RHC on and once PAH is confirmed will start patient on appropriate medicatino. Sister is very concerned about followup for patient after discharge. Social work consult wo aston be appropriate to help coordinate care. Recommendations: - Spirometry with DLCO - Anti-Scl 70 antibodies - Repeat Right heart cath -- on per cardiology - Social work consult to address barriers to followup The patient was seen and evaluated, and the assessment and plan discussed with the attendcelso lee [employer], the note cosigner. Susana Kumar MS4 Marci Dixon, [facility] - 03/24/2017 7:05 AM PSTFormatting of this note might be different from the tayler ely HEART FAILURE AND HEART TRANSPLANT PROGRESS NOTE Hospital Day:7 Consult Attending Physician: Darryl Ballesteros MD Interval Events: Diuretics held Weight up 0.4kg Seen by pulm Subjective: Feels like she is more short of breath today. Stable cough Allergies: Allergies Allergen Reactions Morphine Hypotension Current medications: Current Facility-Administered Medications Medication Dose Route Frequency acetaminophen (TYLENOL) tablet 325 mg 325 mg oral Q4H PRN albuterol (PROVENTIL, VENTOLIN) 90 mcg/actuation inhaler 2 puff 2 puff inhalation Q4H PRN amoxicillin-clavulanate (AUGMENTIN) 875-125 mg 875 mg 875 mg oral BID bisacodyl (DULCOLAX) suppository 10 mg 10 mg rectal DAILY PRN dextromethorphan-guaiFENesin (ROBITUSSIN DM) 10-100 mg/5 mL liquid 10 mL 10 mL oral Q4 H PRN diphenhydrAMINE (BENADRYL) capsule 25 mg 25 mg oral Q6H PRN fluticasone (FLONASE) 50 mcg/actuation nasal spray 2 spray 2 spray both nostrils BID guaiFENesin (ROBITUSSIN) liquid 100 mg 100 mg oral Q4H PRN HYDROcodone-acetaminophen (NORCO) 5-325 mg tablet 1 tablet 1 tablet oral Q4H PRN ondansetron (ZOFRAN) injection 4 mg 4 mg intravenous Q12H PRN polyethylene glycol (MIRALAX) packet 34 g 34 g oral TID PRN potassium chloride (KLOR-CON) packet 40 mEq 40 mEq oral BID senna-docusate (SENOKOT S) 8.6-50 mg 1 tablet 1 tablet oral BID sodium chloride (OCEAN) 0.65 % nasal spray 2 spray 2 spray both nostrils QID Physical Exam: Last 24 hour min/max Temp: 36.7 C (98.1 F) Temp Min: 36.3 C (97.3 F) Max: 36.7 C (98.1 F) Pulse: 88 Pulse Min: 79 Max: 90 Resp: 18 Resp Min: 18 Max: 20 BP: 118/72 BP Min: 113/67 Max: 127/90 SpO2: 96 % SpO2 Min: 91 % Max: 96 % Body mass index is 26.08 kg/m. Intake/Output Summary (Last 24 hours) at 03/24/17 0705 Last data filed at 03/24/17 0644 Gross per 24 hour Intake 1679 ml Output 1475 ml Net 204 ml General Appearance: Pleasant, alert, NAD HEENT: JVP 3 cm above clavicle at 40 degrees Respiratory: Clear to auscultation without wheezes, rales, rhonchi Cardiovascular: RRR, S1, S2, soft murmur LSB Gastrointestinal: Soft, non distended, non tender, normal bowel sounds Extremities: no rashes, warm, peripheral pulses palpable, no edema Neuro: A & O x 3 Lab: Chemistries: Last 72 Hours (or 3 results) - Refreshable Recent Labs 03/22/17 0440 03/23/17 1015 03/24/17 0618 NA 135* 135* 137 K 4.5 4.3 5.3* CL 102 104 106 BICARB 23 24 23 BUN 27* 22* 25* CR 1.02 0.86 0.91 GLU 109* 95 94 CA 9.0 9.0 9.1 MG 2.1 2.2 2.3 CBC with diff last 72 hours (or 3 results) - Refreshable Recent Labs 03/22/17 1134 03/23/17 1015 03/24/17 0618 WBC 7.27 5.89 6.46 HB 18.2* 17.4* 17.9* HCT 53.9* 51.5* 54.0* PLT 196 186 168 Liver Tests: Last 72 hours (or 3 results) No results for input(s): AST, ALT, TBILI, AP, ALB, TP in the last 72 hours. Lab Results Component Value Date INRPT 1.06 03/23/2017 CTA 03/22/2017 No pulmonary embolus. Severe central pulmonary arterial, right ventricular, and right atrial enlargement consiste nt with chronic pulmonary hypertension and right heart failure. Incidental 17 mm nodule in the central left breast. Further evaluation with mammography on a non-urgent basis is recommended. TTE 03/22/2017 1. The left ventricular cavity size [...] are no prior exams available for comparison. Duplex LE 03/22/2017 Conclusions: A normal venous examination of the bilateral lower extremities. No venous thro mbosis was detected. Assessment: Gema Barron is a 52 y.o. female who presented from [facility] with a new diagnosis of heart failure, with echocardiographic evidence of severely dilated RV, RA with small underfilled LV. She diuresed well, and planning for invasive hemodynamics later this week with vasodilator testing Active Problem List: 1. Cardiomyopathy; unclear etiology. Severe RV, RA dilatation. 2. Pulmonary hyertension 3. Right heart failure 4. Pulmonary hypertension 5. Ulcerative colitis 6. H/o meth use 7. H/o rheumatic fever as a child 8. ALONDRA 9. Acute systolic heart failure Plan: 1.Pulmonary hypertension, likely PAH though have not determined by invasive hemodynamics . Will need vasodilator testing to determine reactive nature of hemodynamics and elucidate etiology of PH. In discussion with patient, does have history of first degree relative with connective tissue disease and personal history of methamphetamine use as well as prodrome f or possible DVT/PE burden. TTE on 03/22 was concerning for possible saddle thrombus, but CTA 03/22 did not demonstrate any acute PE. However, it was consistent with RV dilation and chr onic pulmonary hypertension. Pulmonary colleagues agree that this is likely PAH, and will c ontinue to follow -Pulmonology recs appreciated -Plan for RHC and vasodilator testing on 03/25 -RT has been informed and will bring Moris to the lab -SCL-70AB pending -PFTs today 2. Chronic right heart failure related to pulmonary hypertension, preserved LV function: Barnes s diuresed 20 L with improved functional classification. Diuretics have been held. Her carter ling pressures are visible today, and will start oral lasix today with goal of even to -500m l -Lasix 20mg po daily to start 3. Von willebrand deficiency: in history. Given thrombus and unclear PH history, asked heme for consult. Given no acute PE, no acute indication for AC. 4. Sinus pressure: concern for sinusitis given symptoms. Agree with Augmentin. Awaiting for mal ortho panogram read 5. Elevated T Bili: likely related to cardiac output derangements. RHC 03/25 Discharge Bundle Anticoagulation: tbd Blood glucose: n/a Continuous inotropes: n/a Drugs: tbd EP/ECHO: 03/22 Follow-up: will need 7 day with pulmonology Cardiac Rehab: will order NT pro-BNP ordered on day of discharge? [facility] p[facility] #[phone] Heart Failure and Heart Transplantation [facility] Cardiovascular [place] [facility] [place] Associated attestation - Darryl Ballesteros MD - 03/25/2017 9:06 AM PSTHeart Failure and Heart Transplant Attending Note I discussed the interval events, reviewed the objective data, the llamas elements of the physi elmer examination, and formulated the assessment and plan with Rosalva GOMEZ. See the above n ote for full details. This is a non billing attestation, please use Rosalva GOMEZ note for coding and billing pu rposes. Darryl Ballesteros M.D. surgical technician Heart Failure and Heart Transplantation [facility] Cardiovascular [place] [facility] [place] Elise House, DO - 03/23/2017 11:03 AM PST Pulmonary Consult Requesting Attending: Virginie Hatfield MD Reason for Consult: Pulmonary hypertension History of Present Illness: Gema Barron is a 52 y.o. Woman with a hx of ulcerative colitis, von wilibrands deficienc y and prior inhalational and IV methamphetamine use was transferred from [facility] for further evaluation of new severe systolic right and left heart failure and p ulmonary hypertension. Since transfer the patient has been diuresed with some improvement in symptoms. She had an echocardiogram yesterday and in the middle of getting a RHC the results returned with an abn ormal echogenicity concerning for an acute PE so the cath was aborted early. She was starte d on heparin and a CTA was obtained which was negative for PE and heparin was subsequently d iscontinued. Interestingly her echo here shows normal LVEF compared to a severely reduced LV EF at 15-25% at OSH. Upon interview the patient describes 1-2 years of gradual increase in shortness of breath, originally only with exertion but now at rest as well. She has some orthopnea, weight gain and cough. She denies any recent syncopal episodes. She has episodic substernal chest pain with exertion. She francisco javier any food getting stuck or difficulty swallowing but will vomit or dry heave inte rmittently with meals. She has a chronic dry mouth and needs to drink a lot of water. Denies any difficulty opening her mouth or tight skin. She will have intermittent pain and rednes s in her fingers with cold exposure. No rashes, no nodules. She states that she did use IV and inhaled methamphetamines for about 5 years after her div orce but has clean for a number of years. Past Medical History: Patient Active Problem List Diagnosis Acute systolic heart failure (HCC) Inflammatory bowel disease Chronic cough Reactive airway disease ALONDRA (acute kidney injury) (HCC) Von Willebrand disease (HCC) History of inhalational methamphetamine abuse Osteoarthritis Cor pulmonale ([facility]) Home Medications: Prior to Admission Medications Prescriptions CALCIUM CARBONATE-VITAMIN D3 1,000 mg(2,500 mg)-800 unit oral tablet Sig: Take by mouth once daily. albuterol 90 mcg/actuation inhalation HFA aerosol inhaler Sig: Inhale 2 puffs by mouth every four hours as needed (dyspnea). benzonatate 100 mg oral capsule Sig: Take 100 mg by mouth three times daily as needed for cough. diphenhydrAMINE 25 mg oral capsule Sig: Take 25 mg by mouth once daily at bedtime as needed (itching). furosemide 40 mg oral tablet Sig: Take 40 mg by mouth once daily. lisinopril 20 mg oral tablet Sig: Take 20 mg by mouth once daily. Facility-Administered Medications: None Inpatient Medications: Current Facility-Administered Medications Medication Dose Route Frequency Provider Last Rate Last Dose acetaminophen (TYLENOL) tablet 325 mg 325 mg oral Q4H PRN Virginie Hatfield MD 325 mg at 01/25 1606 albuterol (PROVENTIL, VENTOLIN) 90 mcg/actuation inhaler 2 puff 2 puff inhalation Q4H PRN Eric Atkins MD 2 puff at 03/21/17 1638 amoxicillin-clavulanate (AUGMENTIN) 875-125 mg 875 mg 875 mg oral BID Virginie Hatfield MD 8 75 mg at 03/22/17 0933 bisacodyl (DULCOLAX) suppository 10 mg 10 mg rectal DAILY PRN Eric Atkins MD dextromethorphan-guaiFENesin (ROBITUSSIN DM) 10-100 mg/5 mL liquid 10 mL 10 mL oral Q4 H PRN Joaquin Varela MD 10 mL at 03/21/17 2309 diphenhydrAMINE (BENADRYL) capsule 25 mg 25 mg oral Q6H PRN Hill Oconnor MD 25 mg at 03/22/17 0039 fluticasone (FLONASE) 50 mcg/actuation nasal spray 2 spray 2 spray both nostrils BID Lm Hatfield MD 2 spray at 03/22/17 1310 guaiFENesin (ROBITUSSIN) liquid 100 mg 100 mg oral Q4H PRN Joaquin Varela MD 100 mg a t 03/22/17 1809 heparin bolus from continuous infusion 2,900 Units 40 Units/kg intravenous NEEDED ( BOLUS) Virginie Hatfield MD heparin bolus from continuous infusion 5,800 Units 80 Units/kg intravenous NEEDED ( BOLUS) Virginie Hatfield MD heparin in D5W 25,000 Units/250 mL (100 Units/mL) IV infusion (RTU) 1-2,500 Units/hr i ntravenous CONTINUOUS Virginie Hatfield MD 13 mL/hr at 03/22/17 1701 1,300 Units/hr at 03/22/17 1701 HYDROcodone-acetaminophen (NORCO) 5-325 mg tablet 1 tablet 1 tablet oral Q4H PRN Hill Oconnor MD 1 tablet at 03/20/17 2100 ondansetron (ZOFRAN) injection 4 mg 4 mg intravenous Q12H PRN Hill Oconnor MD polyethylene glycol (MIRALAX) packet 34 g 34 g oral TID PRN Eric Atkins MD potassium chloride (KLOR-CON) packet 40 mEq 40 mEq oral BID Virginie Hatfield MD 40 mEq at 0 03/22/17 0929 senna-docusate (SENOKOT S) 8.6-50 mg 1 tablet 1 tablet oral BID Eric Atkins MD 1 t ablet at 03/22/17 0931 sodium chloride (OCEAN) 0.65 % nasal spray 2 spray 2 spray both nostrils QID Virginie Hatfield MD Allergies: Allergies Allergen Reactions Morphine Hypotension Social History: Social History Substance Use Topics Smoking status: Not on file Smokeless tobacco: Not on file Alcohol use Not on file Social History Narrative Lives in [place] (near [place],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 dextromethorphan-guaiFENesin (ROBITUSSIN DM) 10-100 mg/5 mL liquid 10 mL 10 mL oral Q4 H PRN diphenhydrAMINE (BENADRYL) capsule 25 mg 25 mg oral Q6H PRN guaiFENesin (ROBITUSSIN) liquid 100 mg 100 mg oral Q4H PRN heparin bolus from continuous infusion 2,900 Units 40 Units/kg intravenous NEEDED ( BOLUS) heparin bolus from continuous infusion 5,800 Units 80 Units/kg intravenous NEEDED ( BOLUS) HYDROcodone-acetaminophen (NORCO) 5-325 mg tablet 1 tablet 1 tablet oral Q4H PRN ondansetron (ZOFRAN) injection 4 mg 4 mg intravenous Q12H PRN polyethylene glycol (MIRALAX) packet 34 g 34 g oral TID PRN Current Infusions: Current Facility-Administered Medications Medication Dose Route Frequency Last Rate heparin in D5W 25,000 Units/250 mL (100 Units/mL) IV infusion (RTU) 1-2,500 Units/hr i ntravenous CONTINUOUS 1,300 Units/hr (03/22/17 1204) Vital Signs: Cuff BP 128/90 (03/23/17602) | BP Min: 110/89 Max: 128/90 Art Line BP | No Data Recorded Art Line MAP | No Data Recorded HR 89 (03/23/17 06) | Pulse Min: 79 Max: 91 Cardiac Rhythm: Normal Sinus Rhythm (03/22/17 1115) Temp 36.7 C (98.1 F) (03/23/17602) | Temp Min: 36.3 C (97.3 F) Max: 36.7 C (9 8.1 F) RR 18 (03/23/17602) | Resp Min: 14 Max: 18 SpO2 98 % (03/23/17602) | SpO2 Min: 91 % Max: 98 % O2 Device: None (room air) (03/23/17602) | Intake/Output Summary (Last 24 hours) at 03/22/17 0700 Last data filed at 03/22/17 0454 Gross per 24 hour Intake 2166 ml Output 2900 ml Net -734 ml Intake/Output Summary (since admission) at 03/17/17 0035 Last data filed at 03/22/17 1500 Gross for the last 5 days Intake 9855 ml Output 09772 ml Net since Admission -21948 ml BMI: 29.3 Weights 72.9 kg (160 lb 11.5 oz) (03/23/17 06) 72.8 kg (160 lb 7.9 oz) (03/22/17 0448) Admit Wt: 82.2 kg (181 lb 3.5 oz) Physical Exam: General: NAD - coughs frequently Cardiovascular: RRR, nl S1/S2, no M/R/G Respiratory: CTAB, no W/R/R Abdomen: NABS, S/NT/ND, no R/G Ext: W/WPx4, no ALONDRA b/l Skin: No rashes or lesions Neuro: Alert/oriented x3, CNII-XII grossly intact Notable Labs - HCT 53.9, Hgb 18.2 Images CXR (03/21): Clear lungs CTA chest (03/22): No pulmonary embolus. Severe central pulmonary arterial, right ventricular, and right atrial enlargement consiste nt with chronic pulmonary hypertension and right heart failure. Incidental 17 mm nodule in the central left breast. Further evaluation with mammography on a non-urgent basis is recommended. Echo (03/22) : 1. The left ventricular cavity size is [...] are no prior exams available for comparison. LE doppler 03/22/17 Conclusions: A normal venous examination of the bilateral lower extremities. No venous thro mbosis was detected. RHC 03/22/17-- terminated early due to concern for PE HEART [id number] per minute RHYTHM: Sinus Blood [id number]/80 PRESSURES: RA7 m mHg RV65/ 10mmHg PFTs: No previous Impression: Gema Barron is a 52 y.o. Woman with PMH of CHFrEF, UC, alcohol abuse, who presented with acute systolic heart failure with EF of 15% and largely dilated RA and RV, and was found to have a large saddle embolus and concern for pulm HTN. Her symptoms of SOB, CP and right sided HF, and the results of the right hearted cardiac ca th are concerning for Pulm HTN. As far as WHO group 1, She does not report any family hx of PAH, she does report 5 year history of meth use ten years ago. Also reports a family history of RA on father s side and Scleroderma in two aunts on mother s side. Based on Echo she does not have left heart disease which rules out group 2, and no history of COPD or restric tive lung disease to suggest group 3. She does not have any history of unprovoked PE, no PE on current CT, and no other vascular disease to suggest group 4 or 5. Will get PFTs and also a repeat right heart cath for confirmation of PAH. Will start appropriate meds following ri ght heart cath results. Recommendations: Spirometry with DLCO Anti-Scl 70 antibodies Repeat Right heart cath to get complete results The patient was seen and evaluated, and the assessment and plan discussed with the attendin g [employer], the note cosigner. Susana Kumar MS4 Pulmonary consult Marci Dixon A CNP - 03/22/2017 6:42 AM PST HEART FAILURE AND HEART TRANSPLANT PROGRESS NOTE Hospital Day:5 Consult Attending Physician: Darryl Ballesteros MD Interval Events: Given lasix 40mg iV BID Made 2.9L weight down 0.3kg Subjective: Endorses cough overnight, not relieved by robitussin. Also has some sinus pain Allergies: Allergies Allergen Reactions Morphine Hypotension Current medications: Current Facility-Administered Medications Medication Dose Route Frequency albuterol (PROVENTIL, VENTOLIN) 90 mcg/actuation inhaler 2 puff 2 puff inhalation Q4H PRN bisacodyl (DULCOLAX) suppository 10 mg 10 mg rectal DAILY PRN dextromethorphan-guaiFENesin (ROBITUSSIN DM) 10-100 mg/5 mL liquid 10 mL 10 mL oral Q4 H PRN diphenhydrAMINE (BENADRYL) capsule 25 mg 25 mg oral Q6H PRN furosemide (LASIX) injection 40 mg 40 mg intravenous BID ( and ) guaiFENesin (ROBITUSSIN) liquid 100 mg 100 mg oral Q4H PRN heparin, porcine (PF) injection 5,000 Units 5,000 Units subcutaneous Q8H HYDROcodone-acetaminophen (NORCO) 5-325 mg tablet 1 tablet 1 tablet oral Q4H PRN ondansetron (ZOFRAN) injection 4 mg 4 mg intravenous Q12H PRN polyethylene glycol (MIRALAX) packet 34 g 34 g oral TID PRN potassium chloride (KLOR-CON) packet 40 mEq 40 mEq oral BID senna-docusate (SENOKOT S) 8.6-50 mg 1 tablet 1 tablet oral BID Physical Exam: Last 24 hour min/max Temp: 36.6 C (97.9 F) Temp Min: 36.4 C (97.5 F) Max: 36.7 C (98.1 F) Pulse: 83 Pulse Min: 83 Max: 92 Resp: 18 Resp Min: 16 Max: 18 BP: 105/59 BP Min: 105/59 Max: 127/81 SpO2: 96 % SpO2 Min: 92 % Max: 99 % Body mass index is 25.9 kg/m. Intake/Output Summary (Last 24 hours) at 03/22/17 0642 Last data filed at 03/22/17 0454 Gross per 24 hour Intake 2166 ml Output 2900 ml Net -734 ml General Appearance: Pleasant, alert, NAD HEENT: JVP not visible sitting upright Respiratory: Clear to auscultation without wheezes, rales, rhonchi Cardiovascular: RRR, S1, loud S2, soft murmur LSB Gastrointestinal: Soft, non distended, non tender, normal bowel sounds Extremities: no rashes, warm, peripheral pulses palpable, no edema Neuro: A & O x 3 Lab: Chemistries: Last 72 Hours (or 3 results) - Refreshable Recent Labs 03/20/17 0359 03/21/17 0437 03/22/17 0440 NA 137 135* 135* K 4.7 4.8 4.5 CL 100 101 102 BICARB 28 24 23 BUN 23* 24* 27* CR 1.17* 1.05 1.02 GLU 104* 105* 109* CA 8.8 9.1 9.0 MG 2.1 2.0 2.1 CBC with diff last 72 hours (or 3 results) - Refreshable Liver Tests: Last 72 hours (or 3 results) No results for input(s): AST, ALT, TBILI, AP, ALB, TP in the last 72 hours. Lab Results Component Value Date INRPT 1.08 03/22/2017 Assessment: Gema Barron is a 52 y.o. female who presented from [facility] with a new diagnosis of heart failure, with echocardiographic evidence of severely dilated RV, RA with small underfilled LV. She has diuresed more then 20 pounds and will pursue additional test ing today. Active Problem List: 1. Cardiomyopathy; unclear etiology. Severe RV, RA dilatation. 2. Pulmonary hyertension 3. Acute on chronic heart failure; systolic. NYHA III. Stage C 4. Pulmonary hypertension 5. Ulcerative colitis 6. H/o meth use 7. H/o rheumatic fever as a child 8. ALONDRA 9. Acute systolic heart failure Plan: 1.Pulmonary hypertension, likely PAH though have not determined by invasive hemodynamics . Will need vasodilator testing to determine reactive nature of hemodynamics and elucidate etiology of PH. In discussion with patient, does have history of first degree relative with connective tissue disease and personal history of methamphetamine use as well as prodrome f or possible DVT/PE burden. Given prior immobilization and history, likely finding of saddle thrombus today is incidental and not cause of RV failure, given duration of symptom burden. Given thrombus, will start AC and involve pulmonary colleagues. Deferred completion of RH C today given findings of thrombus; will repeat CTA and determine if this is an accurate fin d. RA 7, RV 65/10. -CTA chest now -Pulmonology consult -No further IV diuretics -LE duplex to rule out DVT 2. Saddle thrombus: seen on TTE: will confirm with CTA. Given find, will start anticoagula tion -pulm consult as above -Heparin infusion 3. Von willebrand deficiency: in history. Given thrombus and unclear PH history, will ask h ematology to weight in on possible AC needs and testing -Hematology consult 4. Sinus pressure: concern for sinusitis given symptoms. Agree with Augmentin 5. Elevated T Bili: likely related to cardiac output derangements. Discharge Bundle Anticoagulation: will need Blood glucose: n/a Continuous inotropes: n/a Drugs: tbd EP/ECHO: 03/22 Follow-up: will need 7 day Cardiac Rehab: will order NT pro-BNP ordered on day of discharge? Will order JASON CHARLES pager #[phone] Heart Failure and Heart Transplantation [facility] Cardiovascular [facility] Associated attestation - Darryl Ballesteros MD - 03/23/2017 2:24 PM PSTHeart Failure and Heart Transplant Attending Note I personally interviewed the patient, performed the llamas elements of the physical examinatio n, and formulated the assessment and plan with Mike GOMEZ. See the above note for full d etails. Ms. Barron has the above story and feels better after diuresis. Had echocardiogram with p ossible clot in PA and thus only measure RA and RV pressure on RHC today. Will perform CTA, pulmonary and hematology consult for possible PH/CTEPH. This is a non billing attestation, please use Mike GOMEZ note for coding and billing pur poses. Darryl Ballesteros M.D. surgical technician Heart Failure and Heart Transplantation [facility] Jessica Domingo MD - 03/21/2017 6:00 PM PST HEART FAILURE AND HEART TRANSPLANT PROGRESS NOTE Hospital Day:5 Consult Attending Physician: Jessica Domingo MD Interval Events: - lasix 40 mg IV BID yesterday, I/O 1.7/4.3, net neg 2.5L, weight down 20 lbs since admissi on Subjective: - feels better each day and able to walk 3 full laps without O2, on admission was barely ab le to walk from her bed to the bathroom and needed O2 Allergies: Allergies Allergen Reactions Morphine Hypotension Current medications: Current Facility-Administered Medications Medication Dose Route Frequency albuterol (PROVENTIL, VENTOLIN) 90 mcg/actuation inhaler 2 puff 2 puff inhalation Q4H PRN bisacodyl (DULCOLAX) suppository 10 mg 10 mg rectal DAILY PRN dextromethorphan-guaiFENesin (ROBITUSSIN DM) 10-100 mg/5 mL liquid 10 mL 10 mL oral Q4 H PRN diphenhydrAMINE (BENADRYL) capsule 25 mg 25 mg oral Q6H PRN furosemide (LASIX) injection 40 mg 40 mg intravenous BID ( and ) guaiFENesin (ROBITUSSIN) liquid 100 mg 100 mg oral Q4H PRN heparin, porcine (PF) injection 5,000 Units 5,000 Units subcutaneous Q8H HYDROcodone-acetaminophen (NORCO) 5-325 mg tablet 1 tablet 1 tablet oral Q4H PRN ondansetron (ZOFRAN) injection 4 mg 4 mg intravenous Q12H PRN polyethylene glycol (MIRALAX) packet 34 g 34 g oral TID PRN potassium chloride (KLOR-CON) packet 40 mEq 40 mEq oral BID senna-docusate (SENOKOT S) 8.6-50 mg 1 tablet 1 tablet oral BID Physical Exam: Last 24 hour min/max Temp: 36.6 C (97.9 F) Temp Min: 36.4 C (97.5 F) Max: 36.7 C (98.1 F) Pulse: 83 Pulse Min: 83 Max: 92 Resp: 18 Resp Min: 16 Max: 18 BP: 105/59 BP Min: 105/59 Max: 127/81 SpO2: 96 % SpO2 Min: 92 % Max: 99 % Body mass index is 26.01 kg/m. Intake/Output Summary (Last 24 hours) at 03/22/17 0452 Last data filed at 03/21/17 2213 Gross per 24 hour Intake 1593 ml Output 2550 ml Net -957 ml General Appearance: Pleasant, alert, NAD HEENT: JVP just above clavicle at 45 deg with HJR Respiratory: Clear to auscultation without wheezes, rales, rhonchi Cardiovascular: RRR, S1S2, soft systolic murmur LLSB Gastrointestinal: Soft, non distended, non tender, normal bowel sounds Extremities: no rashes, warm, no LE edema Neuro: A & O x 3 Lab: Chemistries: Last 72 Hours (or 3 results) - Refreshable Recent Labs 03/19/17 1346 03/20/17 0359 03/21/17 0437 NA -- 137 135* K 4.1 4.7 4.8 CL -- 100 101 BICARB -- 28 24 BUN -- 23* 24* CR -- 1.17* 1.05 GLU -- 104* 105* CA -- 8.8 9.1 MG -- 2.1 2.0 CBC with diff last 72 hours (or 3 results) - Refreshable Liver Tests: Last 72 hours (or 3 results) Recent Labs 03/17/17 0110 AST 31 ALT 25 TBILI 1.2 AP 100* ALB 3.1* TP 6.9 No results found for: INRPT ECG 03/17/17 NSR, right axis deviation, non-specific ST-T changes CTA 03/12/17 Negative of pulmonary embolus ECHO 03/13/17 1. Overall left ventricular systolic function is severely impaired with, an EF between 15 - 25 %. 2. There is septal flattening in diastole and systole which is consistent with right ventri cular pressure and volume overload. 3. The right ventricle is severely enlarged measuring >4.1 cm. 4. The left atrium is normal in size. 5. The right atrium is markedly enlarged. 6. The aortic valve is trileaflet, and appears anatomically normal. No aortic stenosis or r egurgitation. 7. There is trace mitral regurgitation. 8. Severe tricuspid regurgitation present. 9. The right ventricular systolic pressure (pulmonary artery systolic pressure), as measure d by Doppler, is 46.81mmHg. 10. There is a trivial pericardial effusion present. Coronary angiogram 04/2010 The coronary system was right dominant. 1. The left main bifurcated into LAD and left circumflex. Left main was free of disease. 2. The left anterior descending artery and the diagonal branches were free of disease. 3. The left circumflex coronary artery and the marginal branches were free of disease. 4. The right coronary artery was a dominant vessel and was free of disease. Assessment: Gema Barron is a 52 y.o. female with no prior cardiac history who presents to [facility] in transfer from [facility] with a new diagnosis of congestive heart failure, wit h echocardiographic evidence of severely dilated RV, RA with small underfilled LV. Active Problem List: 1. Cardiomyopathy; unclear etiology. Severe RV, RA dilatation. 2. Pulmonary hyertension 3. Acute on chronic heart failure; systolic. NYHA III. Stage C 4. Pulmonary hypertension 5. Ulcerative colitis 6. H/o meth use 7. H/o rheumatic fever as a child 8. ALONDRA Plan: 1. Cardiomyopathy with severe RV failure 2. Pulmonary hypertension. Severe RV, RA dilatation. Predominantly right-sided failure. Considerations include primary PAH vs. pulmonary hypertension secondary to a systemic disease such as connective tissue di sease, sarcoid PH related to meth use. CT for PE negative at outside hospital. EULOGIO, RF negat lalito. Hep and HIV negative. Notably, an association between IBD and pulmonary airway, parench ymal disease has been reported. In addition sulfa- drugs have been a/w pulmonary complicatio ns as well. While these are less likely, would be worth keeping in mind. - will plan echo and RHC with pulmonary vasodilator study (if deemed necessary) possibly tomorrow if appears euvolemic to team - she had an angiogram with no sign CAD in 2010, I suspect we don't need another one at th is time 3. Acute on chronic heart failure; systolic. NYHA III. Stage C. Volume status markedly impr elio since admission and is now 20 lbs less - continueIV diuresis; lasix 40 mg IV x 2 - electrolyte repletion - monitor creatinine 4. Ulcerative colitis. No acute issues. 5. ALONDRA. Creatinine stable. Will continue to monitor as we diurese. Discharge Bundle Anticoagation: None Blood glucose: none Continuous inotropes: none Drugs: none EP/ECHO: 03/13/17 Follow-up: TBD Cardiac Rehab: TBD NT pro-BNP ordered on day of admission? yes Jessica Domingo MD Landscape Architect [employer] Plannersatur[employer] Heart Failure and Heart Transplantation [facility] Cardiovascular [place] [facility] [place] [facility] - 0 03/20/2017 12:16 PM PST HEART FAILURE AND HEART TRANSPLANT PROGRESS NOTE Hospital Day:3 Consult Attending Physician: Jessica Domingo MD Interval Events: - lasix 40 mg IV BID yesterday, I/O 1.7/4.9, net neg 1.04L, weight 77.5--> 75 kg Subjective: - feels better each day and able to walk 2 full laps without O2 Allergies: Allergies Allergen Reactions Morphine Hypotension Current medications: Current Facility-Administered Medications Medication Dose Route Frequency albuterol (PROVENTIL, VENTOLIN) 90 mcg/actuation inhaler 2 puff 2 puff inhalation Q4H PRN bisacodyl (DULCOLAX) suppository 10 mg 10 mg rectal DAILY PRN diphenhydrAMINE (BENADRYL) capsule 25 mg 25 mg oral Q6H PRN furosemide (LASIX) injection 40 mg 40 mg intravenous BID ( and ) guaiFENesin (ROBITUSSIN) liquid 100 mg 100 mg oral Q4H PRN heparin, porcine (PF) injection 5,000 Units 5,000 Units subcutaneous Q8H HYDROcodone-acetaminophen (NORCO) 5-325 mg tablet 1 tablet 1 tablet oral Q4H PRN ondansetron (ZOFRAN) injection 4 mg 4 mg intravenous Q12H PRN polyethylene glycol (MIRALAX) packet 34 g 34 g oral TID PRN potassium chloride SR (K-DUR) tablet 40 mEq 40 mEq oral BID senna-docusate (SENOKOT S) 8.6-50 mg 1 tablet 1 tablet oral BID Physical Exam: Last 24 hour min/max Temp: 36.4 C (97.5 F) Temp Min: 36.4 C (97.5 F) Max: 36.7 C (98.1 F) Pulse: 75 Pulse Min: 75 Max: 85 Resp: 16 Resp Min: 16 Max: 18 BP: (!) 134/95 BP Min: 103/65 Max: 134/95 SpO2: 96 % SpO2 Min: 89 % Max: 97 % Body mass index is 26.69 kg/m. Intake/Output Summary (Last 24 hours) at 03/20/17 1216 Last data filed at 03/20/17 1050 Gross per 24 hour Intake 1473 ml Output 4500 ml Net -3027 ml General Appearance: Pleasant, alert, NAD HEENT: JVP to midneck at 50 deg with HJR to jaw Respiratory: Clear to auscultation without wheezes, rales, rhonchi Cardiovascular: RRR, S1S2, soft systolic murmur LLSB Gastrointestinal: Soft, non distended, non tender, normal bowel sounds Extremities: no rashes, warm, no LE edema Neuro: A & O x 3 Lab: Chemistries: Last 72 Hours (or 3 results) - Refreshable Recent Labs 03/18/17 0503 03/18/17 1653 03/19/17 0411 03/19/17 1346 03/20/17 0359 NA 138 -- 137 -- 137 K 3.8 3.4 4.9 4.1 4.7 CL 102 -- 101 -- 100 BICARB 29 -- 30 -- 28 BUN 22* -- 25* -- 23* CR 0.99 -- 1.15* -- 1.17* GLU 88 -- 105* -- 104* CA 8.2* -- 8.5* -- 8.8 MG -- 1.8 -- -- 2.1 CBC with diff last 72 hours (or 3 results) - Refreshable Recent Labs 03/18/17 0502 WBC 5.46 HB 14.8 HCT 44.4 PLT 176 Liver Tests: Last 72 hours (or 3 results) Recent Labs 03/17/17 0110 AST 31 ALT 25 TBILI 1.2 AP 100* ALB 3.1* TP 6.9 No results found for: INRPT ECG 03/17/17 NSR, right axis deviation, non-specific ST-T changes CTA 03/12/17 Negative of pulmonary embolus ECHO 03/13/17 1. Overall left ventricular systolic function is severely impaired with, an EF between 15 - 25 %. 2. There is septal flattening in diastole and systole which is consistent with right ventri cular pressure and volume overload. 3. The right ventricle is severely enlarged measuring >4.1 cm. 4. The left atrium is normal in size. 5. The right atrium is markedly enlarged. 6. The aortic valve is trileaflet, and appears anatomically normal. No aortic stenosis or r egurgitation. 7. There is trace mitral regurgitation. 8. Severe tricuspid regurgitation present. 9. The right ventricular systolic pressure (pulmonary artery systolic pressure), as measure d by Doppler, is 46.81mmHg. 10. There is a trivial pericardial effusion present. Coronary angiogram 04/2010 The coronary system was right dominant. 1. The left main bifurcated into LAD and left circumflex. Left main was free of disease. 2. The left anterior descending artery and the diagonal branches were free of disease. 3. The left circumflex coronary artery and the marginal branches were free of disease. 4. The right coronary artery was a dominant vessel and was free of disease. Assessment: Gema Barron is a 52 y.o. female with no prior cardiac history who presents to [facility] in transfer from [facility] with a new diagnosis of congestive heart failure, wit h echocardiographic evidence of severely dilated RV, RA with small underfilled LV. Active Problem List: 1. Cardiomyopathy; unclear etiology. Severe RV, RA dilatation. 2. Pulmonary hyertension 3. Acute on chronic heart failure; systolic. NYHA III. Stage C 4. Pulmonary hypertension 5. Ulcerative colitis 6. H/o meth use 7. H/o rheumatic fever as a child 8. ALONDRA Plan: 1. Cardiomyopathy with severe RV failure 2. Pulmonary hypertension. Severe RV, RA dilatation. Predominantly right-sided failure. Considerations include primary PAH vs. pulmonary hypertension secondary to a systemic disease such as connective tissue di sease, sarcoid PH related to meth use. CT for PE negative at outside hospital. EULOGIO, RF negat lalito. Hep and HIV negative. Notably, an association between IBD and pulmonary airway, parench ymal disease has been reported. In addition sulfa- drugs have been a/w pulmonary complicatio ns as well. While these are less likely, would be worth keeping in mind. - will plan echo and RHC with pulmonary vasodilator study (if deemed necessary) once closer to euvolemia - she had an angiogram with no sign CAD in 2010, I suspect we don't need another one at th is time 3. Acute on chronic heart failure; systolic. NYHA III. Stage C. Grossly volume up on exam. - IV diuresis; lasix 40 mg IV x 2, goal of negative 1-2L/day - electrolyte repletion - monitor creatinine 4. Ulcerative colitis. No acute issues. 5. ALONDRA. Creatinine stable. Will continue to monitor as we diurese. Discharge Bundle Anticoagation: None Blood glucose: none Continuous inotropes: none Drugs: none EP/ECHO: 03/13/17 Follow-up: TBD Cardiac Rehab: TBD NT pro-BNP ordered on day of admission? yes Jessica Domingo MD [employer] Heart Failure and Heart Transplantation [facility] Cardiovascular [place] [facility] [place] Jamel Mahajan MD - 0 03/19/2017 9:07 AM PST HEART FAILURE AND HEART TRANSPLANT PROGRESS NOTE Hospital Day:2 Consult Attending Physician: Jessica Domingo MD Interval Events: - continues to diurese briskly - lasix 40 IV x 2 - I/O 835/4225 - weight down - hep B, C, A - negative - HIV pending - creatinine grossly stable Subjective: - feels well, still a little SOB, but much improved Allergies: Allergies Allergen Reactions Morphine Hypotension Current medications: Current Facility-Administered Medications Medication Dose Route Frequency albuterol (PROVENTIL, VENTOLIN) 90 mcg/actuation inhaler 2 puff 2 puff inhalation Q4H PRN bisacodyl (DULCOLAX) suppository 10 mg 10 mg rectal DAILY PRN diphenhydrAMINE (BENADRYL) capsule 25 mg 25 mg oral Q6H PRN furosemide (LASIX) injection 40 mg 40 mg intravenous DAILY heparin, porcine (PF) injection 5,000 Units 5,000 Units subcutaneous Q8H HYDROcodone-acetaminophen (NORCO) 5-325 mg tablet 1 tablet 1 tablet oral Q4H PRN ondansetron (ZOFRAN) injection 4 mg 4 mg intravenous Q12H PRN polyethylene glycol (MIRALAX) packet 34 g 34 g oral TID PRN potassium chloride SR (K-DUR) tablet 20 mEq 20 mEq oral BID senna-docusate (SENOKOT S) 8.6-50 mg 1 tablet 1 tablet oral BID Physical Exam: Last 24 hour min/max Temp: 36.6 C (97.9 F) Temp Min: 36.3 C (97.3 F) Max: 36.6 C (97.9 F) Pulse: 75 Pulse Min: 75 Max: 86 Resp: 16 Resp Min: 16 Max: 18 BP: 117/79 BP Min: 106/66 Max: 145/89 SpO2: 95 % SpO2 Min: 93 % Max: 96 % Body mass index is 27.58 kg/m. Intake/Output Summary (Last 24 hours) at 03/19/17 0908 Last data filed at 03/19/17 0600 Gross per 24 hour Intake 1120 ml Output 3925 ml Net -2805 ml General Appearance: Pleasant, alert, NAD HEENT: JVP 3-4 cm above the clavicle sitting up at 90, +HJR Respiratory: Clear to auscultation without wheezes, rales, rhonchi Cardiovascular: RRR, S1S2, no mrg's Gastrointestinal: Soft, non distended, non tender, normal bowel sounds Extremities: no rashes, warm, peripheral pulses palpable, + edema Neuro: A & O x 3 Lab: Chemistries: Last 72 Hours (or 3 results) - Refreshable Recent Labs 03/17/17 1050 03/18/17 0503 03/18/17 1653 03/19/17 0411 NA 139 138 -- 137 K 3.7 3.8 3.4 4.9 CL 101 102 -- 101 BICARB 33* 29 -- 30 BUN 18 22* -- 25* CR 1.15* 0.99 -- 1.15* GLU 137* 88 -- 105* CA 8.9 8.2* -- 8.5* MG 1.9 -- 1.8 -- CBC with diff last 72 hours (or 3 results) - Refreshable Recent Labs 03/17/17 0110 03/18/17 0502 WBC 6.20 5.46 HB 15.4 14.8 HCT 47.5* 44.4 PLT 189 176 Liver Tests: Last 72 hours (or 3 results) Recent Labs 03/17/17 0110 AST 31 ALT 25 TBILI 1.2 AP 100* ALB 3.1* TP 6.9 No results found for: INRPT ECG 03/17/17 NSR, right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 cath site stable, no oozing. No diuretics today. 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 COMFORT/ANXIETY/BEHAVIOR Patient/Family Target: Patient will have at least 4-6 hours of sleep overnight and will report feeling well rest ed this AM. Progress to Target: Improving As evidenced by: Rosamaria wanted to get some sleep tonight as part of her goal for the shift. Interventions i mplemented overnight in order to help promote this included: turning the lights off, door cl osed, blinds pulled down, and clustered care and medications. We also obtained a do not dist urb order from [id number]. At bedtime she reported that she was feeling itchy and PRN Benadr yl was given which also made her sleepy/drowsy. She appeared to be able to rest and sleep o vernight and in-between care and reports having 7 hours of sleep and feels rested. NURSING ASSESSMENT & RECOMMENDATIONS FORWARD Nursing Assessment of Patient Stability Risk: Moderately stable Recommendations Forward: - Augmentin initiated for suspected sinusitis x5-7 days (today would be day #4 - 03/25). - Patient likes to take her nasal sprays in the opposite order than was is written as a kristyn sing communication order - team is aware. - Patient reports having difficulty sleeping and refusing labs to be drawn until [address]; follow-up with team if OK to re-time lab draws to later in the morning. - Order for do not disturb [id number] - Needs reinforcement with HF education: keep track of I&O's on the whiteboard in the room. Post daily weights in patient's room and keep track of them every morning. Encourage bindu ent to continue to attend [facility]. - PLAN: Full RHC on ; resume diuresis today? (pending HF recommendations); medicati on adjustments. Barriers to discharge: Diuresis; medication optimization, another RHC planned for (03/25). andoff - Rogerio Hendrix RN - 03/24/2017 2:35 AM PSTNursing Handoff Patient Daily Goal: Patient states would like to get some rest and sleep tonight. (2018) Patient Specific Preferences: cluster care as much as possible (03/20/17 0444) [facility] IP NURSE HANDOFF: [facility] hospital course events: 03/17: Transferred from [facility] fo r evaluation of new severe right heart failure of uncertain etiology. 03/22: TTE yesterday with concern for saddle thrombus. Heparin gtt started. CTA negative for acute PE. heparin gtt stopped. Right heart cath site oozing. Stat seal placed on NOC shift. 03/23: Right heart cath site stable, no oozing. No diuretics today. 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 COMFORT/ANXIETY/BEHAVIOR Patient/Family Target: Patient will have at least 4-6 hours of sleep overnight and will report feeling well rest ed this AM. Progress to Target: Improving As evidenced by: Patient stated that she wanted to get some sleep and rest tonight as part of her goal for the shift. Interventions implemented overnight in order to help promote this included: tur charlene the lights off, door closed, blinds pulled down, and clustered care and medications. S he also reported that she was feeling itchy and PRN Benadryl was given and she also reported that this made her sleepy/drowsy. She appeared to be able to rest and sleep overnight and in-between care. She reported some generalized discomfort to her neck (at the previous [facility] site), and upper back - but declined pain medications. Patient also reported that some of t his discomfort was from lying in the bed and the bed itself. Offered to place the K-pad beh ind her back or in a position that would help her pain, but she declined. Patient stated at the beginning of the shift that she refused for labs to be drawn until after 0530. This mo rning, she reported that she slept "not as much as I should have" however, she had approxima tely 5-6 hours overnight. NURSING ASSESSMENT & RECOMMENDATIONS FORWARD Nursing Assessment of Patient Stability Risk: Moderately stable Recommendations Forward: - There is a lung profusion scan ordered but it should not be do ne. [facility] does not allow us (MD and RN) both tried as it says that it has already been schedu led. Have day shift call radiology to cancel this. Day shift RN verified with Marci Mei a nd first call that they do not want this test done. - Augmentin initiated for suspected sinusitis x5-7 days (today would be day #3 - 03/24). - Patient likes to actually take her nasal sprays in the opposite order than was is written as a nursing communication order - team is aware. - Patient reports having difficulty sleeping and refusing labs to be drawn until [address]; follow-up with team if OK to re-time lab draws to later in the morning and if OK to hav e Limited Interruptions order from [id number]. Recommend adding Melatonin to PRN list. - Needs reinforcement with HF education: keep track of I&O's on the whiteboard in the room. Post daily weights in patient's room and keep track of them every morning. Encourage bindu ent to continue to attend university. - PLAN: Full RHC on ; resume diuresis today? (pending HF recommendations); medicati on adjustments. Barriers to discharge: Diuresis; medication optimization, another RHC tenatively planned fo r (03/25). andoff - Kimberlee Barber RN - 03/23/2017 6:44 PM PSTNursing Handoff Patient Daily Goal: get my advanced directives witnessed, shower becuase I have blood in my hair. RN advocacy: attend HFU she agrees too after discussion (03/23/17 6139) Patient Specific Preferences: cluster care as much as possible (03/20/17 5637) [facility] IP NURSE HANDOFF: [facility] hospital course events: 03/17 transferred from [facility] for evaluation of new severe right heart failure of uncertain etiology HX: CHFpEF, rheumatic fever and arthritis at age 12 (not on Penicillin), Ulcerative Colitis (not on treatment, diet controlled), Meth use for 5 years (off meth for last 5 years), vBD (no previous thrombotic episodes), RAD, h/o heavy alcohol use presents with acute systolic C HF with EF 15% and RV dilatation and high pressures 03/22: TTE yesterday with concern for saddle thrombus. Heparin gtt started. CTA negative for acute PE. heparin gtt stopped. Right heart cath site oozing. Stat seal placed on NOC shift 03/23: Right heart cath site stable, no oozing. No diuretics today. Panorex (dental scan don e) As evidenced by: RESTORATIVE MEASURES/SELF-MANAGEMENT Patient/Family Target: Gema will verbalize understanding of the importance of the caring for your heart educat ion by the end of this shift Progress to Target: Improving As evidenced by: Gema verbalized understanding of the packet and attends HFU, she is active in her marie cho RN about her fluids intake and does not miss her hat today. She at times can seem like sh e is not talking the teaching seriously but seems to use humor and sarcasm to cope. Allow fo r extra time and assessing via teach back helps to know she has in fact heard you. Family is supportive. NURSING ASSESSMENT & RECOMMENDATIONS FORWARD Nursing Assessment of Patient Stability Risk: Moderately stable Recommendations Forward: Monitor BMP and UO. Gema told me this am that she sometimes miss es the hat we talked about the importance of making the hat. Keep the hat scooted back in e toilet a bit this helps. I/O from today should all be accurate. Ambulated independent in the room and supervised in the hallways. Family bedside most of e day but they go home today for a few days EDU: HFU today and she reports she watched the videos. Ongoing CHF education, imformed bindu ent of upcoming [facility] university on Wednesday There is a lung profusion scan ordered but it should not be done. [facility] does not allow us (Raymond Ferrell and RN) both tried as it says that it has already been scheduled. Have day shift call [facility] to [facility]. verified with Marci Mei and first call that they do not want this t est done. Plan for more diuresis and medications adjustments Barriers to discharge: CHF treatment optimization andoff - Viridiana Monreal RN - 03/23/2017 2:25 AM PSTNursing Handoff Patient Daily Goal: To get better with cough (03/22/17 7789) Patient Specific Preferences: cluster care as much as possible (03/20/17 3842) [facility] IP NURSE HANDOFF: [facility] hospital course events: 52 yo F esented with chronic, progressiv e cough and dyspnea, transferred from [facility] for evaluation of new severe right hea rt failure of uncertain etiology HX: ulcerative colitis, RAD, VWD, and prior inhalational meth abuse who Echo , found a clot, Heparin drip started. 01/19, heparin gtt stopped As evidenced by: COMFORT/ANXIETY/BEHAVIOR Patient/Family Target: Laney will call appropriately for pain medication Progress to Target: Improving As evidenced by: Gema calls when she feels her pain level increasing, and knows to notify the RN before the pain becomes unbearable. She rates her pain a 5/10 overnight, and took 1 tab of [place]. C ontinue to assess Gema and offer ways to alleviate pain as needed. RESTORATIVE MEASURES/SELF-MANAGEMENT Patient/Family Target: Gema will participate in the treatment plan. Progress to Target: No Change As evidenced by: Working with Gema regarding her 2L fluid restriction, she is still struggling to adhere , and has gone slightly over her limit. Tracked I &O's on the white board and helped limit h er intake. She did however have a small cup of water to take pills from instead of from her water bottle. She expressed interest in university, and recommend following up to davie e her chance of attendance. NURSING ASSESSMENT & RECOMMENDATIONS FORWARD Nursing Assessment of Patient Stability Risk: Moderately stable Recommendations Forward: Continue to monitor patient's HR, VS, Labs/ Bleeding precautions, patient started to bleed after her CTA today in the R neck [facility] site. Statseal placed Ongoing CHF education, imformed patient of upcoming [facility] on Wednesday Barriers to discharge: CHF treatment andoff - Elvis, Prem king RN - 03/22/2017 5:57 PM PSTNursing Handoff Patient Daily Goal: To get better with cough (03/22/17 0780) Patient Specific Preferences: cluster care as much as possible (03/20/17 4930) [facility] IP NURSE HANDOFF: As evidenced by: 52 yo F with a h/o ulcerative colitis, RAD, VWD, and prior inhalational meth abuse who pr esented with chronic, progressive cough and dyspnea, transferred from [facility] for ev aluation of new severe right heart failure of uncertain etiology 03/22/17 Echo done today found a clot, Heparin drip started. RESTORATIVE MEASURES/SELF-MANAGEMENT Patient/Family Target: Gema will participate in the treatment plan. Progress to Target: No Change As evidenced by: Discussed with Gema her goals for the shift in AM. Continued CHF education, discussed 2 L FR. Used a white board to place I &O for visual information. Gema needs reinforcement of the teaching. Discussed Heparin drip management. Gema verbalized understanding of the teaching. Informed Gema about upcoming [facility] calss. NURSING ASSESSMENT & RECOMMENDATIONS FORWARD Nursing Assessment of Patient Stability Risk: Moderately stable Recommendations Forward: Continue to monitor patient's HR, VS, Labs/ Heparin drip per protocol., Hep level drawn. Heparin drip will be DC. Bleeding precautions, patient started to bleed after her CTA today in the R neck C site. Ongoing CHF education, imformed patient of upcoming CHF university on Wednesday Barriers to discharge: CHF treatment andoff - Saima Aguilar RN - 03/22/2017 4:01 AM PSTNursing Handoff Patient Daily Goal: To get more rest today (03/21/17 0858) Patient Specific Preferences: cluster care as much as possible (03/20/1796) [facility] IP NURSE HANDOFF: [facility] hospital course events: 52 yo F with a h/o ulcerative colitis, RAD, VWD, and prior inhalational meth abuse who pres ented with chronic, progressive cough and dyspnea, transferred from [facility] for eval uation of new severe right heart failure of uncertain etiology RESTORATIVE MEASURES/SELF-MANAGEMENT Patient/Family Target: Gema will ambulate in hallway before bed time Progress to Target: Improving As evidenced by: Gema ambulates with walker and SBA, her goal was to ambulate in hallway as tolerated be fore bed time, She ambulated one loop around unit, no symptoms with ambulation noted. Gema has increase her activity walking in hallway since her HF symptoms improved, continue to en courage Gema to ambulate as tolerated. HEALTH PROMOTION Patient/Family Target: Gema will verbalize understanding of HF management , daily weight, low sodium diet, flu id restriction Progress to Target: No Change As evidenced by: Booklet "Carring for your heart at bed site, we talk of importance of HF management FR, daily weight, low sodium diet. Gema was not much motivated to precipitate in HF educatio n neeraj ,Did not record her weight in HF zone tool this Am but she continue to loose her w eight, she is also complaint with her FR. continue to provide and encourage HF education. NURSING ASSESSMENT & RECOMMENDATIONS FORWARD Nursing Assessment of Patient Stability Risk: Moderately stable Recommendations Forward: -HF education materials at bedside. Watched HF .-Continue to reinforce HF education. -SBA to BR. Pt steady on her feet most of the time, but reports occasional moments of unste adiness with a few falls in the last year -Sister is staying at nearby hotel. Very involved in care -Required 2L O2 today -[place] PRN q4h for pain, --Monitor lytes, responds well to lasix with high UO and loosing weight, This Am weight is down about one pounds, - Per MD note : Plan RHC/angiogram, biopsy on Wednesday- today Barriers to discharge: Continued continue of care, diuresis, RHC/angiogram and biopsy on , andoff - Brenda Shearer RN - 03/21/2017 3:14 PM PSTNursing Handoff Patient Daily Goal: To get more rest today (03/21/17 0841) Patient Specific Preferences: cluster care as much as possible (03/20/17 0847) [facility] IP NURSE HANDOFF: [facility] hospital course events: 52 yo F with a h/o ulcerative colitis, RAD, VWD, and prior inhalational meth abuse who pres ented with chronic, progressive cough and dyspnea, transferred from [facility] for eval uation of new severe right heart failure of uncertain etiology COMFORT/ANXIETY/BEHAVIOR Patient/Family Target: Gema will report adequate pain relieve and will be able to ambulate in [place] Progress to Target: Improving As evidenced by: Gema has not complained of pain at all during day shift. She reports that her k-pad is helping with her previous neck and back pain. Gema was able to take a 2 hour nap today and has ambulated in the mckeon 3 different times. Continue to assess her pain and ask if she nee ds pain medication. HEALTH PROMOTION Patient/Family Target: Gema will verbalize understanding of HF management , daily weight, low sodium diet, flu id restriction Progress to Target: No Change As evidenced by: Booklet "Carring for your heart at bed site, we talk of importance of HF management FR, daily weight, low sodium diet. Gema is motivated to learn more about HF, but does appear somewhat overwhelmed with the amount of lifestyle changes she will have to make. Discussed f luid restriction in more detail with Gema and began writing up her fluid amounts on the ite board. Gema reported that she was feeling "very thirsty today" and drank several sodas in the afternoon. Introduced the idea of eating cups of ice chips rather than drinking full sodas. 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 Also began a discussion with Gema about her sodium restriction and presented alternatives to her favorite snacks (i.e. Salted tortilla chips and cheese). Continue to reinforce these restrictions and help Gema come up with creative ways to manage these changes. NURSING ASSESSMENT & RECOMMENDATIONS FORWARD Nursing Assessment of Patient Stability Risk: Moderately stable Recommendations Forward: -HF education materials at bedside. Watched HF videos during the day, .-Continue to reinforce HF education. -SBA to BR. Pt steady on her feet most of the time, but reports occasional moments of unste adiness with a few falls in the last year - patient motivated to walk in [place] -Sister is staying at nearby hotel. Very involved in care -[place] PRN q4h for pain, -Monitor lytes, responds well to lasix with high UO and loosing weight. Weight down again today Barriers to discharge: Continued diuresis, RHC/Echo possible on Wednesday, HF workup andoff - Omaiar Aguilar RN - 03/20/2017 11:23 PM PSTNursing Handoff Patient Daily Goal: Get more sleep (03/20/17846) Patient Specific Preferences: cluster care as much as possible (03/20/17846) [facility] IP NURSE HANDOFF: [facility] hospital course events: 52 yo F with a h/o ulcerative colitis, RAD, VWD, and prior inhalational meth abuse who pres ented with chronic, progressive cough and dyspnea, transferred from [facility] for eval uation of new severe right heart failure of uncertain etiology COMFORT/ANXIETY/BEHAVIOR Patient/Family Target: Gema will report adequate pain relieve and will be able to sleep 4-6 hours Progress to Target: Improving As evidenced by: Gema reported her Pain was in her chest and her shoulder rated 3/10, K- pad helpful for her shoulder, Narco one Tab at bet time was effective to keep he pain at her comfortable le samy. Gema stated she would like to sleep uninterruptedly from 23:00 Until phlebotomy come s in Am.Care clustered to promote uninterrupted sleep. This AM Gema reported slept well proximately 6-7 hours, denied pain this AM. HEALTH PROMOTION Patient/Family Target: Gema will verbalize understanding of HF management , daily weight, low sodium diet, flu id restriction Progress to Target: No Change As evidenced by: Booklet "Carring for your heart at bed site, we talk of importance of HF management FR, daily weight, low sodium diet. Gema was not much motivated to precipitate in HF educatio n neeraj , stated feels to tiered , Did not record her weight in HF zone tool this Am but s he continue to loose her weight, she is also complaint with her FR. continue to provide and encourage HF education. NURSING ASSESSMENT & RECOMMENDATIONS FORWARD Nursing Assessment of Patient Stability Risk: Moderately stable Recommendations Forward: -HF education materials at bedside. Watched HF videos during the day, .-Continue to reinforce HF education. -SBA to BR. Pt steady on her feet most of the time, but reports occasional moments of unste adiness with a few falls in the last year -Sister is staying at nearby hotel. Very involved in care -Required 2L O2 today -[place] PRN q4h for pain, , -Monitor lytes, responds well to lasix with high UO and loosing weight, This Am weight i s down , Barriers to discharge: Continued diuresis, RHC/LHC possible on Wednesday, HF workup andoff - Omaira Aguilar RN - 03/20/2017 6:36 AM PSTNursing Handoff Patient Daily Goal: to get good night sleep. (03/19/171999) Patient Specific Preferences: cluster care (03/18/17 0748) [facility] IP NURSE HANDOFF: [facility] hospital course events: 52 yo F with a h/o ulcerative colitis, RAD, VWD, and prior inhalational meth abuse who pres ented with chronic, progressive cough and dyspnea, transferred from [facility] for eval uation of new severe right heart failure of uncertain etiology COMFORT/ANXIETY/BEHAVIOR Patient/Family Target: Gema will report adequate pain relieve and will be able to sleep 4-6 hours Progress to Target: Improving As evidenced by: Gema reported her Pain was in her chest and shoulder rated 3/10,Gema complained of he r Abdominal discomfort and Pain rated Pain level 3/10 Narco 1 tab given, was effective, o bserved Gema slept intermitently 5-6 hours. HEALTH PROMOTION Patient/Family Target: Gema will verbalize understanding of HF management , daily weight, low sodium diet, flu id restriction Progress to Target: No Change As evidenced by: Booklet "Carring for your heart at bed site, we talk of importance of HF management FR, daily weight, low sodium diet. Gema was not much motivated to precipitate in HF educatio n, stated feels to tiered , Did not record her weight in HF zone tool this Am but she contin ue to loose her weight, she is also complaint with FR. continue to provide and encourage HF education. NURSING ASSESSMENT & RECOMMENDATIONS FORWARD Nursing Assessment of Patient Stability Risk: Moderately stable Recommendations Forward: -HF education materials at bedside. Watched HF yesterday .-Continue to reinforce education. -SBA to BR. Pt steady on her feet most of the time, but reports occasional moments of unste adiness with a few falls in the last year -Sister is staying at nearby hotel. Very involved in care -Required 2L O2 today -[place] PRN q4h for pain, had episode of abdominal cramping last night, Monitor, -Monitor lytes, responded well to lasix yesterday with high UO. This Am weight is down , Barriers to discharge: Continued diuresis, RHC/LHC possible on Wednesday, HF workup andoff - Park Manjarrez RN - 03/19/2017 5:52 PM PSTNursing Handoff Patient Daily Goal: To walk and wean off O2 (03/19/17 0821) Patient Specific Preferences: cluster care (03/18/17 9148) [facility] IP NURSE HANDOFF: [facility] hospital course events: 52 yo F with a h/o ulcerative colitis, RAD, VWD, and prior inhalational meth abuse who pres ented with chronic, progressive cough and dyspnea, transferred from [facility] for eval uation of new severe right heart failure of uncertain etiology COMFORT/ANXIETY/BEHAVIOR Patient/Family Target: Rosamaria will have decreased chest/pleuritic pain today rated at <5/10. Progress to Target: Improving As evidenced by: Rosamaria presented to OSH with complaints of chest pain and she continues to endorse chest pain as well as back pain that is chronic. Team believes chest pain is pleuritic from fluid overload. Rosamaria understands to notify someone immediately if pain changes or suddenly worsen s. Today she denied or complained of only slight pain with deep inhalation and declined any intervention. Continue to monitor, PRN [place] available. HEALTH PROMOTION Patient/Family Target: Rosamaria will verbalize understanding of HF management. Progress to Target: Improving As evidenced by: Encouraged Rosamaria to watch the remaining HF videos and continue to go over HF materials, h owever, she did not today. She stated that she has a scale at home and understands the purpo se of daily weights, however, she does need to become more familiar with HF zone tool. Dicus sed fluid restriction and she also met with the dietitian today. She appears motivated to ma ke lifestyle changes at home.She is testing out the low sodium menu to find things she likes and can try to make at home as well. Continue to reinforce HF education and provide opportu nities to discuss questions and strategies Rosamaria has for management at home. NURSING ASSESSMENT & RECOMMENDATIONS FORWARD Nursing Assessment of Patient Stability Risk: Moderately unstable Recommendations Forward: -HF education materials at bedside. Continue to reinforce education. -SBA to BR. Pt steady on her feet most of the time, but reports occasional moments of unste adiness with a few falls in the last year -Sister is staying at nearby hotel. Very involved in care -Weaned off O2 today -[place] PRN q4h for pain Barriers to discharge: Continued diuresis, RHC/LHC possibly on Wednesday 03/22, HF workup lan of Care - Meg Gold, PT - 03/19/2017 1:49 PM PSTPhysical Therapy Contact Note Attempted to see patient at 1345. Patient reported that she had been ambulating ad doreen in r oom and walked one lap around the entire unit this morning with nursing. Patient reports heri t she no longer feels that she requires physical therapy, states she will continue to ambula te with nursing. Patient is very pleased with her endurance increases with diuresis. Discuss ed with the patient that physical therapy is available in the future if she feels she would benefit from it. Will sign off on PT services at this time. Please contact PT if indicated f or any future needs or status changes. Lucy Ta, SPT Meg Ceballos, PT, DPT, CCS Physical Therapist Pager #[phone] lan of Care - Kate Olivo RD - 03/19/2017 11:46 AM PSTProblem: Nutrition Interventions Intervention: Nutrition Education Pt identified on HF list. Currently on 2 gm Na diet and 2000 ml fluid restriction. 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 Good appetite. Likes pasta, pizza and [place]vorian food. Does cook most meals at home. [place] with [place] one [place] restaurant across the street. Other restaurants require driving to another town. She does not drive. Provided verbal & written 2000 mg Na diet education including Heart Failure Nutrition Thera py with fluid restriction, Sodium-Free Flavoring Tips, Sodium Content of Foods, and label re ading tips from AND Nutrition Care Manual. Also provided recommended brand names of low Na s oups, crackers, and frozen meals. Discussed foods to include vs foods to avoid in respects t o sodium restriction per day & per meal. Reviewed alternative ways to season food without sa lt. Encouraged compliance and allow taste to adjust. Plans to cook pasta with ground turkey, garlic, onions, and olive oil instead of salt. Reviewed limiting pizza and avoiding frozen pizzas and restaurant pizzas. Discussed ways to make lower Na pizza at home. Discussed ways to cook lower Na [place]vorian foods at home. Pt receptive & agreeable. Expect fair complianc e. Following. Kate Olivo, MPH, RD, CNSC, LD Pager: [phone] andoff - Saima Aguilar RN - 03/19/2017 6:43 AM PSTNursing Handoff Patient Daily Goal: to get good sleep tonight. (03/18/171999) Patient Specific Preferences: [facility] care (03/18/17 0748) [facility] IP NURSE HANDOFF: [facility] hospital course events: 52 yo F with a h/o ulcerative colitis, RAD, VWD, and prior inhalational meth abuse who pres ented with chronic, progressive cough and dyspnea, transferred from [facility] for eval uation of new severe right heart failure of uncertain etiology COMFORT/ANXIETY/BEHAVIOR Patient/Family Target: Gema will report adequate pain relieve and will be able to sleep 4-6 hours Progress to Target: Improving As evidenced by: Gema reported her Pain was in her chest and shoulder rated 5/10, [place] 1 tab given at b ed time, and K-pad provided for her shoulder Pain. After Pain Med given Gema stated her shoulder Pain and chest Pain improved but she compla ined of Abdominal cramping for about 30 min , winch was relieved positioning on her left sit e, declined Need to page MD for additional Med. After, Gema was sleeping intermitently at least 4-6 hours. HEALTH PROMOTION Patient/Family Target: Gema will verbalize understanding of HF management , daily weight, low sodium diet, flu id restriction Progress to Target: No Change As evidenced by: Booklet "Carring for your heart at bed site, we talk of importance of HF management FR, daily weight, low sodium diet. Gema was not much motivated to precipitate in HF educatio n, stated feels to tiered , Did not record her weight in HF zone tool, continue to provide a nd encourage HF education. NURSING ASSESSMENT & RECOMMENDATIONS FORWARD Nursing Assessment of Patient Stability Risk: Moderately unstable Recommendations Forward: -HF education materials at bedside. Watched HF yesterday .-Continue to reinforce education. -SBA to BR. Pt steady on her feet most of the time, but reports occasional moments of unste adiness with a few falls in the last year -Sister is staying at nearby hotel. Very involved in care -Required 2L O2 today -[place] PRN q4h for pain, had episode of abdominal cramping last night, Monitor, -Monitor lytes, responded well to lasix yesterday with high UO. This Am weight is down, Barriers to discharge: Continued diuresis, RHC/LHC, HF workup andoff - Park Manjarrez RN - 03/18/2017 5:41 PM PSTNursing Handoff Patient Daily Goal: Rest, wean of o2 (03/18/17747) Patient Specific Preferences: cluster care (03/18/17747) [facility] IP NURSE HANDOFF: [facility] hospital course events: 52 yo F with a h/o ulcerative colitis, RAD, VWD, and prior inhalational meth abuse who pres ented with chronic, progressive cough and dyspnea, transferred from [facility] for eval uation of new severe right heart failure of uncertain etiology COMFORT/ANXIETY/BEHAVIOR Patient/Family Target: Gema will have decreased chest/pleuritic pain today rated at <5/10. Progress to Target: Improving As evidenced by: Gema presented to OSH with complaints of chest pain and she continues to endorse chest pain as well as back pain that is chronic. Team believes chest pain is pleuritic from fluid overload. Rosamaria understands to notify someone immediately if pain changes or suddenly worsen s. Had one episode today of 3-4/10 chest pain after a coughing fit and getting up to bathroo m. Gave [place] x1 which help relieve pain. Pain today felt the same as prior episodes. Previo usly has had problems with itching after [place], PRN benadryl available. Continue to monitor for pain and any changes that may signal a change in pain quality and source. HEALTH PROMOTION Patient/Family Target: Gema will verbalize understanding of HF management. Progress to Target: Improving As evidenced by: Today we went over HF education packet and Gema watched some of the HF videos. Gema w anted to go to [email or web address], however, she was too tired to go today. Encourage her to go ne xt week. She continues to appear a bit overwhelmed with education. Continue to reinforce edu cation and help Gema identify strategies to manage HF at home. NURSING ASSESSMENT & RECOMMENDATIONS FORWARD Nursing Assessment of Patient Stability Risk: Moderately unstable Recommendations Forward: -HF education materials at bedside. Watched HF videos today and went over materials again. Continue to reinforce education. -SBA to BR. Pt steady on her feet most of the time, but reports occasional moments of unste adiness with a few falls in the last year -Sister is staying at nearby hotel. Very involved in care -Required 2L O2 today -[place] PRN q4h for pain -Monitor lytes, responded well to lasix today with high UO. Replaced K and Mg this evening Barriers to discharge: Continued diuresis, RHC/LHC, HF workup lan of Care - We rachelle, Liz Wright LCSW - 03/18/2017 12:26 PM PSTProblem: SW Goals & Interventions Goal: Psychosocial Coping/Adjustment Social Work Note Referral source/reason: Dr Atkins / Assistance filling out advance directive Assessment/Intervention: SW met with Pt and sister on 11K. Pt states she would like her s isSánchez [phone] to act as her medical decision maker. The Advance Di rective was explained at length. All questions answered. Pt's sister is very invested in [employer] aving Pt complete the document and gave many good examples of how the form could be helpful. Family given a blank copy to look over. Plan: No other SW needs identified at this time. SW to sign off. Please reorder SW as ne eded. FREDDY Ram, DAVID [employer] Taillight Assembler 12K, 11K, 7CVIMC, and 4A Phone [phone] or Pager- [phone] andoff - Saima Amezquita RN - 03/18/2017 6:30 AM PSTNursing Handoff Patient Daily Goal: sleep, wean off o2 (03/17/171999) [facility] IP NURSE HANDOFF: [facility] hospital course events: 52 yo F with a h/o ulcerative colitis, R AD, VWD, and prior inhalational meth abuse who presented with chronic, progressive cough and dyspnea, transferred from [facility] for evaluation of new severe right heart failure of uncertain etiology COMFORT/ANXIETY/BEHAVIOR Patient/Family Target: Gema will have decreased chest/pleuritic pain today rated at 5 or below. Progress to Target: Improving As evidenced by: Gema presented to OSH w complaints of chest pain that has continued intermittently thro ughout her stay. Team believes this pain to be pleuritic pain from fluid overload. Rosamaria michael ws to notify someone immediately if pain changes or suddenly worsens. Overnight, she request ed one dose of [place] to help manage pain before going to bed so that she could sleep. Shannon lugo has had problems with itching after admin. This time she was able to go to sleep and re st comfortably for most of the night with no problems. F/u on itching when she is more alert today. IV lasix and diuresis seems to slowly be improving chest pain and symptoms. O2 weaned to 2. 5L overnight. Will likely be able to wean further with continued diuresis and when she is mo re awake today. NURSING ASSESSMENT & RECOMMENDATIONS FORWARD Nursing Assessment of Patient Stability Risk: Moderately unstable Recommendations Forward: -HF education materials at bedside. Reviewed today with patient bu t was a lot for her to take in. Needs reinforcement. Recommend heart failure [facility] -SBA to BR. Pt steady on her feet most of the time, but reports occasional moments of unste adiness with a few falls in the last year -Sister is staying at nearby hotel. Very involved in care -Decreased oxygen today to 2.5L NC with sats at 94%, she sometimes prefers simple mask. Pierre ats to high 80s without o2. -Reports intermittent chest pain with radiation to shoulder. Took [place] X1 tonight with goo d relief. Can have q 4 hrs as needed. EKGs unchanged. NSR on tele. Team believes it is pleur itic pain. -NPO since midnight for RHC/LHC today 03/18 Barriers to discharge: Heart cath and HF workup andoff - Kasandra Wilder RN - 03/17/2017 5:11 PM PSTNursing Handoff Patient Daily Goal: Patient would like breathing to improve today. (03/17/17 0922) [facility] IP NURSE HANDOFF: [facility] hospital course events: 52 yo F with a h/o ulcerative colitis, R AD, VWD, and prior inhalational meth abuse who presented with chronic, progressive cough and dyspnea, transferred from [facility] for evaluation of new severe right heart failure of uncertain etiology COMFORT/ANXIETY/BEHAVIOR Patient/Family Target: Gema will have decreased chest/pleuritic pain today rated at 5 or below. Progress to Target: Improving As evidenced by: Gema had X1 episode of left sided chest pain that is worse with inspiration and 6/10. T eam thinks it is pleuritic pain from volume overload. Gave X1 [place] which completely relieve d pain. Has ordered q 4 hrs but only received X1 today. Recommend encouraging ambulation and cough/deep breathing that may help mobilize fluids. Received X1 dose of IV lasix as well wh ich helped with pain and breathing. NURSING ASSESSMENT & RECOMMENDATIONS FORWARD Nursing Assessment of Patient Stability Risk: Moderately unstable Recommendations Forward: -HF education materials at bedside. Reviewed today with patient bu t was a lot for her to take in. Needs reinforcement. Recommend heart failure [facility] rrow. -SBA to BR. Pt steady on her feet most of the time, but reports occasional moments of unste adiness with a few falls in the last year -Sister is staying at nearby hotel. Very involved in care -Decreased oxygen today to 3L NC with sats at 94%, she sometimes prefers simple mask. Desat s to mid 80s without o2. -Reports intermittent chest pain with radiation to shoulder. Took [place] X1 today with good relief. Can have q 4 hrs as needed. EKGs unchanged. NSR on tele. Team believes it is pleurit ic pain. -NPO after midnight for RHC/LHC tomorrow 03/18 lan of Care - Joana Parekh, PT - 03/17/2017 9:24 AM PST Physical Therapy Evaluation Admitted on 03/17/2017, hospital day 0 03/17/2017 9:24 AM Patient seen on 11K Date of : 1965 Start of care: 03/15/2017 Attending Practitioner: Hill Oconnor MD Primary/Referral Diagnosis/ICD-9: I50.31 Heart failure, acute, diastolic, first episode (HC C) Insurance: Payor: / Service period from: 03/17/2017 to: 04/16/2017 Others Present for PT session besides patient and therapist: Brief Hospital Course: Ms. Barron is a 52 yo F with a h/o ulcerative colitis, RAD, VWD, and prior inhalational meth abuse who presented with chronic, progressive cough and dyspnea, transferred from [facility] for evaluation of new severe right heart failure of uncert ain etiology. Relevant Precautions: cardiac No past medical history on file. Subjective: Pt supine in bed on arrival. Agreeable to PT. Living Environment: Pt lives in studio apartment. No stairs to enter. Pt lives alone with her two small dogs. Pt reports she has a great community of family and friends who assist h er as needed. Prior Level of Function: Independent however over the past year she has been limited in act ivity due to "being sick." Pt reports she can only walk 30 feet before she needs to sit theresa n. Because of this she has stopped doing things like going to the grocery store and laundro mat. Her friends have been doing these things for her. Pt does not use an assistive device . Patient / Family Goal: go home, increase her tolerance to activity Communication: Hungarian Barriers: none Pain: no c/o pain Cognitive Screen Level of alertness: awake Orientation: x 4 Quality of responses: appropriate Command followin% Judgment / safety awareness: good Physical Assessment ROM: within functional limits lower extremities Strength: RIGHT LEFT HIP FL 3/5 3+/5 KNEE EX 4/5 4+/5 DFL 5/5 5/5 Edema: bilateral lower extremities Neurological Function Sensation: intact to light touch Muscle Tone: within normal limits lower extremities Balance: Sitting static: independent Sitting dynamic: independent Standing static: independent Standing dynamic: supervision without assistive device or upper extremity support Mobility & Transfers: Supine <> sit: independent Sit <> stand: supervision, pt using upper extremity support when standing for initial chalino ding balance Sit to stand x 5 reps for exercise, pt reports last rep being challenging Gait: Pt ambulated 14 feet x 2 in room with one standing rest break. Pt used front wheeled walker. Discussed trial of ambulation without assistive device and consideration of four w heeled walker should pt continue to demonstrate limited ambulation tolerance. Ended session: pt left supine with current needs met, nurse present Outcome Measure: AMPAC BASIC MOBILITY AMPA BASIC MOBILITY Difficulty turning over in bed 4 - None - Modified Independent/Independent Difficulty sitting/standing from chair w/ arms 3 - A Little - Minimal/Contact Guard Assist/ Suervision Difficulty moving from supine to sitting on edge of bed 4 - None - Modified Independent/Ind ependent Help needed moving from /to chair/wheelchair 3 Help needed walking in hospital room 3 - A Little - Minimal/Contact Guard assist/Supervisio n Help needed climbing 3-5 steps w/railing 3 - A Little - Minimal/Contact Guard Assist/Superv ision [facility] Basic Mobility Total Score 20 Interpretation of [facility] Short Form - Basic Mobility: CMS Modifier (G-Code) Score (in points) % of Functional Impairment, Limitation, or Restriction CN 6 100% impaired, limited, restricted CM 7-9 At least 80%, but less than 100% impaired, limited, or restricted CL 10-14 At least 60%, but less than 80% impaired, limited, or restricted CK 15-19 At least 40%, but less than 60% impaired, limited, or restricted CJ 20-22 At least 20%, but less than 40% impaired, limited, or restricted CI 23 At least 1%, but less than 20% impaired, limited, or restricted CH 24 0% impaired, limited, or restricted *not formally assessed ; projected score based on other elements of mobility and may be und erestimated ASSESSMENT: Pt presents with newly diagnosed heart failure. Pt has been progressively more limited in activity tolerance over last year, being limited by shortness of breath. Pt cur rently demonstrating decreased cardiovascular endurance and deconditioning and will benefit from continued ambulation with nursing while in hospital. Will follow up to assess for assi stive device needs for discharge home after continued diuresis and for continued education i n self pacing and cardiac rehab phase II. This patient has good rehabilitation potential to achieve stated goals (see Care Plan for g oals) and requires continued rehabilitation services, given the patient's treatment is at a level of complexity or sophistication requiring the skills of a therapist, specifically gait training, pt education, strengthening. Activity Recommendations for Nursing partners: *Nursing to re-assess per shift as needed.* - Lights on and curtains open during day hours. - Up to chair 3x/day with front wheeled walker and one person assist. - Routine ambulation 3x/day with front wheeled walker and one person assist. DISCHARGE RECOMMENDATIONS: anticipate pt will be able to discharge to home with assist as needed from friends and family PLAN: Gait/transfer training, therapeutic exercise, therapeutic activity, education, neuro muscular reeducation Frequency: 2 visits Duration: 1 week Goals: 1. Pt to be independent with least restrictive assistive device ambulating 50 feet, self p acing with RPE. 2. Pt to be independent with home exercise program for lower extremity strengthening 3. Pt to demonstrate understanding of cardiac precautions Personal factors/Comorbidities; Moderate - 1-2 personal factors. Behavior: None Learning Factors: None. Social Issues: Poor self care and Financial restraints Medical Conditions Impacting Care: Cardiac Body Systems Elements: Moderate - 3 or more elements Body structures & functions: Cardiopulmonary status and Endurance Activity limitations: Impaired gait Participation restrictions: Community activities. Clinical Presentation: Moderate - Evolving: Expected slow progression of recovery Clinical decision making: Moderate Complexity: Moderate level of skill to determine plan of care and implement changes accordingly Gema's knowledge of disease process: Good . The patient requires services that can be safely and effectively performed only by a quali fied therapist to address the aforementioned and highlighted problems and goals. Goals discussed and agreed upon with Gema and family. Treatment began: 899 Treatment ended: 922 Pt was seen for a total of 23 minutes of direct one on one skilled physical therapy which i ncluded evaluaiton The above plan of care and goals were developed and reviewed with the patient. Joana Parekh PT, DPT, CCS Physical Therapist Pager #[phone] andoff - Alice Amezquita RN - 03/17/2017 5:56 AM PSTNursing Handoff [facility] IP NURSE HANDOFF: [facility] hospital course events: 52 yo F with a h/o ulcerative colitis, R AD, VWD, and prior inhalational meth abuse who presented with chronic, progressive cough and dyspnea, transferred from [facility] for evaluation of new severe right heart failure of uncertain etiology NURSING ASSESSMENT & RECOMMENDATIONS FORWARD Nursing Assessment of Patient Stability Risk: Moderately unstable Recommendations Forward: -HF education materials at bedside. 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 Pt needed to sleep. Verbalized minimal understanding of diagnosis and management -SBA to BR. Pt steady on her feet most of the time, but reports occasional moments of unste adiness with a few falls in the last year -Sister is staying at nearby hotel. Very involved in care -Pt net neg. Approx. 2L overnight -Currently on 5L O2. Desats to mid 80s without o2. Prefers facemask, but has NC at bedside for eating. -Reports intermittent chest pain with radiation to shoulder. Took [place] at OSH with good re lief. EKGs unchanged. NSR on tele. Pt knows to call if pain spikes or changes. Barriers to discharge: Probable PCI 03/17 or 03/18 [facility] - 03/16/2017 6:[address] Mancuso with Dr Domingo, [facility] Fail[facility] - 03/15/2017 12:[address] Domingo, heart failure, for Dr vincent. 1300 Dr Domingo will review images, then will call TC back to be connected with ref. [id number] Vincent, 52YOF, pt not in any distress at the time, progrnorma arreguine heart failue, presented to [facility], 1 year ago started furosemide and lisinopril, cough sob chest pain with any activity, echo pushed, rt atrium compresses the left atruim, rt ventricle huge, left ventricle small, bnp 500 after initial diuresis, creat up to 1.6, lf t's abnormal, Dr Domingo recommends diuretics, accepts pt in transfer to 11K or 7C bed. Transf er requested for tomorrow, 03/16 1454 alpha paged grp 18 with 11K or 7C bed request. 1457 updated grpo 18 that transfer is for tomorrow, 03/16. documented in this encounter Plan of Treatment + + +--------+ + + | Name | Type | Priori | Associated Diagnoses | Date/Time | | | | ty | | | + + +--------+ + + | [facility] - ORTHO | Imaging | Routin | | 03/21/2017 10:00 AM | | PANTOMOGRAM | Standing | e | | PST | + + +--------+ + + | [facility] - [facility]THO | Imaging | Routin | | 03/23/2017 3:53 PM | | PANTOMOGRAM | Standing | e | | PST | + + +--------+ + + + + +--------+ + + | Name | Type | Priori | Associated Diagnoses | Order Schedule | | | | ty | | | + + +--------+ + + | [facility] - ORTHO | Imaging | Routin | | One Time for 1 | | PANTOMOGRAM | Standing | e | | Occurrences starting | | | | | | 03/21/2017 until | | | | | | 03/21/2017 | + + +--------+ + + | [facility] - ORTHO | Imaging | Routin | | One Time for 1 | | PANTOMOGRAM | Standing | e | | Occurrences starting | | | | | | 03/23/2017 until | | | | | | 03/23/2017 | + + +--------+ + + + +---------+--------+ + + | Name | Type | Priori | Associated Diagnoses | Order Schedule | | | | ty | | | + +---------+--------+ + + | ORTHOTIC REFERRAL | Consult | Routin | Pulmonary | Ordered: 03/27/2017 | | | | e | hypertension (HCC) | | + +---------+--------+ + + documented as of this encounter Procedures + +--------+ + + + | Procedure Name | Priori | Date/Time | Associated Diagnosis | Comments | | | ty | | | | + +--------+ + + + | CBC (HEMOGRAM) ONLY | Routin | 03/27/2017 | | Results for this | | | e | 6:25 AM | | procedure are in the | | | | PST | | results section. | + +--------+ + + + | LIVER SET | Routin | 03/27/2017 | | Results for this | | (AST,ALT,BILI | e | 6:25 AM | | procedure are in the | | TOTAL,BILI | | PST | | results section. | | DIRECT,ALK | | | | | | PHOS,ALB,PROT TOTAL) | | | | | + +--------+ + + + | BASIC METABOLIC SET | Routin | 03/27/2017 | | Results for this | | (NA, K, CL, TCO2, | e | 6:25 AM | | procedure are in the | | BUN, CR, GLU, CA) | | PST | | results section. | + +--------+ + + + | CBC ONLY | Routin | 03/27/2017 | | Results for this | | | e | 6:25 AM | | procedure are in the | | | | PST | | results section. | + +--------+ + + + | MAGNESIUM, PLASMA | Routin | 03/27/2017 | | Results for this | | | e | 6:25 AM | | procedure are in the | | | | PST | | results section. | + +--------+ + + + | CARDIOLOGY | | 03/27/2017 | | Results for this | | | | 12:00 AM | | procedure are in the | | | | PST | | results section. | + +--------+ + + + | CBC (HEMOGRAM) ONLY | Routin | 03/26/2017 | | Results for this | | | e | 5:27 AM | | procedure are in the | | | | PST | | results section. | + +--------+ + + + | BASIC METABOLIC SET | Routin | 03/26/2017 | | Results for this | | (NA, K, CL, TCO2, | e | 5:27 AM | | procedure are in the | | BUN, CR, GLU, CA) | | PST | | results section. | + +--------+ + + + | CBC ONLY | Routin | 03/26/2017 | | Results for this | | | e | 5:27 AM | | procedure are in the | | | | PST | | results section. | + +--------+ + + + | MAGNESIUM, PLASMA | Routin | 03/26/2017 | | Results for this | | | e | 5:27 AM | | procedure are in the | | | | PST | | results section. | + +--------+ + + + | CARDIOLOGY | | 03/26/2017 | | Results for this | | | | 12:00 AM | | procedure are in the | | | | PST | | results section. | + +--------+ + + + | CARDIOLOGY | | 03/26/2017 | | Results for this | | | | 12:00 AM | | procedure are in the | | | | PST | | results section. | + +--------+ + + + | PROCEDURE NOTE | Routin | 03/25/2017 | | Results for this | | | e | 5:44 PM | | procedure are in the | | | | PST | | results section. | + +--------+ + + + | FUNDRAISING SPECIALIST HF/TX CAR | Routin | 03/25/2017 | | Results for this | | [facility]) | e | 2:22 PM | | procedure are in the | | | | PST | | results section. | + +--------+ + + + | POTASSIUM, PLASMA | Routin | 03/25/2017 | | Results for this | | | e | 8:40 AM | | procedure are in the | | | | PST | | results section. | + +--------+ + + + | CBC (HEMOGRAM) ONLY | Routin | 03/25/2017 | | Results for this | | | e | 5:45 AM | | procedure are in the | | | | PST | | results section. | + +--------+ + + + | BASIC METABOLIC SET | Routin | 03/25/2017 | | Results for this | | (NA, K, CL, TCO2, | e | 5:45 AM | | procedure are in the | | BUN, CR, GLU, CA) | | PST | | results section. | + +--------+ + + + | CBC ONLY | Routin | 03/25/2017 | | Results for this | | | e | 5:45 AM | | procedure are in the | | | | PST | | results section. | + +--------+ + + + | MAGNESIUM, PLASMA | Routin | 03/25/2017 | | Results for this | | | e | 5:45 AM | | procedure are in the | | | | PST | | results section. | + +--------+ + + + | CARDIOLOGY | | 03/25/2017 | | Results for this | | | | 12:00 AM | | procedure are in the | | | | PST | | results section. | + +--------+ + + + | CARDIOLOGY | | 03/25/2017 | | Results for this | | | | 12:00 AM | | procedure are in the | | | | PST | | results section. | + +--------+ + + + | SPIROMETRY, PULM | Routin | 03/24/2017 | | Results for this | | [facility] | e | 4:06 PM | | procedure are in the | | | | PST | | results section. | + +--------+ + + + | POTASSIUM, PLASMA | Routin | 03/24/2017 | | Results for this | | | e | 11:56 AM | | procedure are in the | | | | PST | | results section. | + +--------+ + + + | CBC (HEMOGRAM) ONLY | Routin | 03/24/2017 | | Results for this | | | e | 6:18 AM | | procedure are in the | | | | PST | | results section. | + +--------+ + + + | BASIC METABOLIC SET | Routin | 03/24/2017 | | Results for this | | (NA, K, CL, TCO2, | e | 6:18 AM | | procedure are in the | | BUN, CR, GLU, CA) | | PST | | results section. | + +--------+ + + + | CBC ONLY | Routin | 03/24/2017 | | Results for this | | | e | 6:18 AM | | procedure are in the | | | | PST | | results section. | + +--------+ + + + | MAGNESIUM, PLASMA | Routin | 03/24/2017 | | Results for this | | | e | 6:18 AM | | procedure are in the | | | | PST | | results section. | + +--------+ + + + | CARDIOLOGY | | 03/24/2017 | | Results for this | | | | 12:00 AM | | procedure are in the | | | | PST | | results section. | + +--------+ + + + | CARDIOLOGY | | 03/24/2017 | | Results for this | | | | 12:00 AM | | procedure are in the | | | | PST | | results section. | + +--------+ + + + | SCL-70 AB | Routin | 03/23/2017 | | Results for this | | | e | 2:55 PM | | procedure are in the | | | | PST | | results section. | + +--------+ + + + | CBC (HEMOGRAM) ONLY | Routin | 03/23/2017 | | Results for this | | | e | 10:15 AM | | procedure are in the | | | | PST | | results section. | + +--------+ + + + | INR | Routin | 03/23/2017 | | Results for this | | | e | 10:15 AM | | procedure are in the | | | | PST | | results section. | + +--------+ + + + | BASIC METABOLIC SET | Routin | 03/23/2017 | | Results for this | | (NA, K, CL, TCO2, | e | 10:15 AM | | procedure are in the | | BUN, CR, GLU, CA) | | PST | | results section. | + +--------+ + + + | CBC ONLY | Routin | 03/23/2017 | | Results for this | | | e | 10:15 AM | | procedure are in the | | | | PST | | results section. | + +--------+ + + + | MAGNESIUM, PLASMA | Routin | 03/23/2017 | | Results for this | | | e | 10:15 AM | | procedure are in the | | | | PST | | results section. | + +--------+ + + + | CARDIOLOGY | | 03/23/2017 | | Results for this | | | | 12:00 AM | | procedure are in the | | | | PST | | results section. | + +--------+ + + + | CARDIOLOGY | | 03/23/2017 | | Results for this | | | | 12:00 AM | | procedure are in the | | | | PST | | results section. | + +--------+ + + + | HEPARIN, EITHER | Urgent | 03/22/2017 | | Results for this | | STANDARD / LMW, | | 5:58 PM | | procedure are in the | | BLOOD | | PST | | results section. | + +--------+ + + + | CTA CHEST PULMONARY | Routin | 03/22/2017 | | Results for this | | EMBOLISM W CONTRAST | e | 4:45 PM | | procedure are in the | | | | PST | | results section. | + +--------+ + + + | VASC LAB VENOUS | Routin | 03/22/2017 | | Results for this | | DUPLEX LOWER | e | 2:32 PM | | procedure are in the | | EXTREMITY BILAT COMP | | PST | | results section. | + +--------+ + + + | CBC (HEMOGRAM) ONLY | Urgent | 03/22/2017 | | Results for this | | | | 11:34 AM | | procedure are in the | | | | PST | | results section. | + +--------+ + + + | INR | Urgent | 03/22/2017 | | Results for this | | | | 11:34 AM | | procedure are in the | | | | PST | | results section. | + +--------+ + + + | CBC ONLY | Urgent | 03/22/2017 | | Results for this | | | | 11:34 AM | | procedure are in the | | | | PST | | results section. | + +--------+ + + + | APTT (ACT. PART. | Urgent | 03/22/2017 | | Results for this | | THROMBO TIME) | | 11:34 AM | | procedure are in the | | | | PST | | results section. | + +--------+ + + + | RIGHT HEART | Routin | 03/22/2017 | | Results for this | | CATHETERIZATION | e | 11:25 AM | | procedure are in the | | | | PST | | results section. | + +--------+ + + + | FUNDRAISING SPECIALIST | Routin | 03/22/2017 | | Results for this | | EMERGENT/IMMEDIATE | e | 9:26 AM | | procedure are in the | | PROCEDURE | | PST | | results section. | + +--------+ + + + | TRANSTHORACIC | Routin | 03/22/2017 | | Results for this | | ECHOCARDIOGRAM WITH | e | 7:51 AM | | procedure are in the | | STRAIN - CARDIO | | PST | | results section. | | MECHANICS, ADULT | | | | | + +--------+ + + + | LIVER SET | Routin | 03/22/2017 | | Results for this | | (AST,ALT,BILI | e | 4:40 AM | | procedure are in the | | TOTAL,BILI | | PST | | results section. | | DIRECT,ALK | | | | | | PHOS,ALB,PROT TOTAL) | | | | | + +--------+ + + + | BASIC METABOLIC SET | Routin | 03/22/2017 | | Results for this | | (NA, K, CL, TCO2, | e | 4:40 AM | | procedure are in the | | BUN, CR, GLU, CA) | | PST | | results section. | + +--------+ + + + | MAGNESIUM, PLASMA | Routin | 03/22/2017 | | Results for this | | | e | 4:40 AM | | procedure are in the | | | | PST | | results section. | + +--------+ + + + | CARDIOLOGY | | 03/22/2017 | | Results for this | | | | 12:00 AM | | procedure are in the | | | | PST | | results section. | + +--------+ + + + | CARDIOLOGY | | 03/22/2017 | | Results for this | | | | 12:00 AM | | procedure are in the | | | | PST | | results section. | + +--------+ + + + | BASIC METABOLIC SET | Routin | 03/21/2017 | | Results for this | | (NA, K, CL, TCO2, | e | 4:37 AM | | procedure are in the | | BUN, CR, GLU, CA) | | PST | | results section. | + +--------+ + + + | MAGNESIUM, PLASMA | Routin | 03/21/2017 | | Results for this | | | e | 4:37 AM | | procedure are in the | | | | PST | | results section. | + +--------+ + + + | CARDIOLOGY | | 03/21/2017 | | Results for this | | | | 12:00 AM | | procedure are in the | | | | PST | | results section. | + +--------+ + + + | CARDIOLOGY | | 03/21/2017 | | Results for this | | | | 12:00 AM | | procedure are in the | | | | PST | | results section. | + +--------+ + + + | BASIC METABOLIC SET | Routin | 03/20/2017 | | Results for this | | (NA, K, CL, TCO2, | e | 3:59 AM | | procedure are in the | | BUN, CR, GLU, CA) | | PST | | results section. | + +--------+ + + + | MAGNESIUM, PLASMA | Routin | 03/20/2017 | | Results for this | | | e | 3:59 AM | | procedure are in the | | | | PST | | results section. | + +--------+ + + + | CARDIOLOGY | | 03/20/2017 | | Results for this | | | | 12:00 AM | | procedure are in the | | | | PST | | results section. | + +--------+ + + + | CARDIOLOGY | | 03/20/2017 | | Results for this | | | | 12:00 AM | | procedure are in the | | | | PST | | results section. | + +--------+ + + + | POTASSIUM, PLASMA | Routin | 03/19/2017 | | Results for this | | | e | 1:46 PM | | procedure are in the | | | | PST | | results section. | + +--------+ + + + | BASIC METABOLIC SET | Routin | 03/19/2017 | | Results for this | | (NA, K, CL, TCO2, | e | 4:11 AM | | procedure are in the | | BUN, CR, GLU, CA) | | PST | | results section. | + +--------+ + + + | CARDIOLOGY | | 03/19/2017 | | Results for this | | | | 12:00 AM | | procedure are in the | | | | PST | | results section. | + +--------+ + + + | CARDIOLOGY | | 03/19/2017 | | Results for this | | | | 12:00 AM | | procedure are in the | | | | PST | | results section. | + +--------+ + + + | POTASSIUM, PLASMA | Routin | 03/18/2017 | | Results for this | | | e | 4:53 PM | | procedure are in the | | | | PST | | results section. | + +--------+ + + + | MAGNESIUM, PLASMA | Routin | 03/18/2017 | | Results for this | | | e | 4:53 PM | | procedure are in the | | | | PST | | results section. | + +--------+ + + + | FUNDRAISING SPECIALIST HF/TX CAR | Routin | 03/18/2017 | | Results for this | | [facility] | e | 9:38 AM | | procedure are in the | | | | PST | | results section. | + +--------+ + + + | X-RAY CHEST 1 VIEW | Routin | 03/18/2017 | | Results for this | | | e | 8:53 AM | | procedure are in the | | | | PST | | results section. | + +--------+ + + + | NT-PRO BNP | Routin | 03/18/2017 | | Results for this | | | e | 5:03 AM | | procedure are in the | | | | PST | | results section. | + +--------+ + + + | BASIC METABOLIC SET | Routin | 03/18/2017 | | Results for this | | (NA, K, CL, TCO2, | e | 5:03 AM | | procedure are in the | | BUN, CR, GLU, CA) | | PST | | results section. | + +--------+ + + + | HEPATITIS A AB | Routin | 03/18/2017 | | Results for this | | SCREEN, SERUM | e | 5:03 AM | | procedure are in the | | | | PST | | results section. | + +--------+ + + + | HEPATITIS B SURFACE | Routin | 03/18/2017 | | Results for this | | AG W/REFLEX IF | e | 5:02 AM | | procedure are in the | | INDICATED | | PST | | results section. | + +--------+ + + + | CBC (HEMOGRAM) ONLY | Routin | 03/18/2017 | | Results for this | | | e | 5:02 AM | | procedure are in the | | | | PST | | results section. | + +--------+ + + + | HIV AB/AG SCREENING | Routin | 03/18/2017 | | Results for this | | W/REFLEX TO CONFIRM | e | 5:02 AM | | procedure are in the | | | | PST | | results section. | + +--------+ + + + | CBC ONLY | Routin | 03/18/2017 | | Results for this | | | e | 5:02 AM | | procedure are in the | | | | PST | | results section. | + +--------+ + + + | HEPATITIS B CORE AB, | Routin | 03/18/2017 | | Results for this | | SERUM | e | 5:02 AM | | procedure are in the | | | | PST | | results section. | + +--------+ + + + | HEPATITIS C VIRUS | Routin | 03/18/2017 | | Results for this | | W/CONFIRMATION | e | 5:02 AM | | procedure are in the | | | | PST | | results section. | + +--------+ + + + | CARDIOLOGY | | 03/18/2017 | | Results for this | | | | 12:00 AM | | procedure are in the | | | | PST | | results section. | + +--------+ + + + | CARDIOLOGY | | 03/18/2017 | | Results for this | | | | 12:00 AM | | procedure are in the | | | | PST | | results section. | + +--------+ + + + | CARDIOLOGY | | 03/18/2017 | | Results for this | | | | 12:00 AM | | procedure are in the | | | | PST | | results section. | + +--------+ + + + | DRUG | Routin | 03/17/2017 | | Results for this | | SCREEN,URINE;W/CONFI | e | 5:27 PM | | procedure are in the | | RM | | PST | | results section. | + +--------+ + + + | BASIC METABOLIC SET | Routin | 03/17/2017 | | Results for this | | (NA, K, CL, TCO2, | e | 10:50 AM | | procedure are in the | | BUN, CR, GLU, CA) | | PST | | results section. | + +--------+ + + + | MAGNESIUM, PLASMA | Routin | 03/17/2017 | | Results for this | | | e | 10:50 AM | | procedure are in the | | | | PST | | results section. | + +--------+ + + + | 12 LEAD ECG | Routin | 03/17/2017 | | Results for this | | | e | 2:05 AM | | procedure are in the | | | | PST | | results section. | + +--------+ + + + | CBC (HEMOGRAM) ONLY | Routin | 03/17/2017 | | Results for this | | | e | 1:10 AM | | procedure are in the | | | | PST | | results section. | + +--------+ + + + | COMPLETE METABOLIC | Routin | 03/17/2017 | | Results for this | | SET | e | 1:10 AM | | procedure are in the | | (NA,K,CL,CO2,BUN,CRE | | PST | | results section. | | AT,GLUC,CA,AST,ALT,B | | | | | | ZENON TOTAL,ALK | | | | | | PHOS,ALB,PROT TOTAL) | | | | | + +--------+ + + + | CBC ONLY | Routin | 03/17/2017 | | Results for this | | | e | 1:10 AM | | procedure are in the | | | | PST | | results section. | + +--------+ + + + | CARDIOLOGY | | 03/17/2017 | | Results for this | | | | 12:00 AM | | procedure are in the | | | | PST | | results section. | + +--------+ + + + | CARDIOLOGY | | 03/17/2017 | | Results for this | | | | 12:00 AM | | procedure are in the | | | | PST | | results section. | + +--------+ + + + | CARDIOLOGY | | 03/17/2017 | | Results for this | | | | 12:00 AM | | procedure are in the | | | | PST | | results section. | + +--------+ + + + | CARDIOLOGY | | 03/17/2017 | | Results for this | | | | 12:00 AM | | procedure are in the | | | | PST | | results section. | + +--------+ + + + documented in this encounter Results CBC (HEMOGRAM) ONLY (03/27/2017 6:25 AM PST) + + + + + + | Component | Value | Ref Range | Performed | Pathologist | | | | | At | Signature | + + + + + + | WHITE CELL | 6.14 | 3.50 - 10.80 | [facility] | | | COUNT | | K/cu mm | LABORATORY | | | | | | SERVICES, | | | | | | CORE | | + + + + + + | RED CELL | 4.96 | 4.00 - 5.20 | [facility] | | | COUNT | | M/cu mm | LABORATORY | | | | | | SERVICES, | | | | | | CORE | | + + + + + + | HEMOGLOBIN | 16.0 | 12.0 - 16.0 | [facility] | | | | | g/dL | LABORATORY | | | | | | SERVICES, | | | | | | CORE | | + + + + + + | HEMATOCRIT | 47.5 (H) | 36.0 - 46.0 % | [facility] | | | | | | LABORATORY | | | | | | SERVICES, | | | | | | CORE | | + + + + + + | MCV | 95.8 | 80.0 - 96.0 fL | [facility] | | | | | | LABORATORY | | | | | | SERVICES, | | | | | | CORE | | + + + + + + | MCHC | 33.7 | 33.0 - 35.5 | [facility] | | | | | g/dL | LABORATORY | | | | | | SERVICES, | | | | | | CORE | | + + + + + + | RDW SD | 49.7 (H) | 35.1 - 46.3 fL | [facility] | | | | | | LABORATORY | | | | | | SERVICES, | | | | | | CORE | | + + + + + + | PLATELET | 144 (L) | 150 - 400 K/cu | [facility] | | | COUNT | | mm | LABORATORY | | | | | | SERVICES, | | | | | | CORE | | + + + + + + | MPV | 11.0 | 9.7 - 12.3 fL | [facility] [...] | + + + + + | [facility] | [address] | [place] [address] | | | SERVICES, CORE | [address] | | | + + + + + MAGNESIUM, PLASMA (03/27/2017 6:25 AM PST) + +-------+ + + + | Component | Value | Ref Range | Performed | Pathologist | | | | | At | Signature | + +-------+ + + + | MAGNESIUM,P | 2.1 | 1.6 - 2.6 mg/dL | [facility] | | | LASMA | | | LABORATORY | | | | | | SERVICES, | | | | | | CORE | | + +-------+ + + + + + | Specimen | + + | Blood - Blood | | (substance) | + + + + + | Narrative | Performed At | + + + | Reference range change effective 09/22/16. | [facility] | | | LABORATORY | | | SERVICES, CORE | + + + + + + + + | Performing | Address | City/State/Zipcode | Phone Number | | Organization | | | | + + + + + | [facility] | [address] | [place] [address] | | | SERVICES, CORE | [address] | | | + + + + + BASIC METABOLIC SET (NA, K, CL, TCO2, BUN, CR, GLU, CA) (03/27/2017 6:25 AM PST) + +---------+ + + + | Component | Value | Ref Range | Performed | Pathologist | | | | | At | Signature | + +---------+ + + + | GLUCOSE, | 97 | 70 - 99 mg/dL | [facility] | | | PLASMA | | | LABORATORY | | | (LAB) | | | SERVICES, | | | | | | CORE | | + +---------+ + + + | BUN, PLASMA | 24 (H) | 6 - 20 mg/dL | [facility] | | | (LAB) | | | LABORATORY | | | | | | SERVICES, | | | | | | CORE | | + +---------+ + + + | CREATININE | 0.81 | 0.60 - 1.10 | [facility] | | | PLASMA | | mg/dL | LABORATORY | | | (LAB) | | | SERVICES, | | | | | | CORE | | + +---------+ + + + | EGFR | >60 | >60 mL/min | [facility] | | | - | | | LABORATORY | | | NEPALESE | | | SERVICES, | | | | | | CORE | | + +---------+ + + + | EGFR NON | >60 | >60 mL/min | [facility] [...] +---------+ + + + | POTASSIUM, | 4.6 | 3.4 - 5.0 | [facility] | [...] TOTAL CO2, | 24 | 21 - 32 mmol/L | [facility] | | | PLASMA | | | LABORATORY | | | (LAB) | | | SERVICES, | | | | | | CORE | | + +---------+ + + + | CALCIUM, | 8.6 | 8.6 - 10.2 | [facility] | | | PLASMA | | mg/dL | LABORATORY | | | (LAB) | | | SERVICES, | | | | | | CORE | | + +---------+ + + + | ANION GAP | 6 | 4 - 11 mmol/L | [facility] [...] + + | [facility] | [address] | [place] [address] | | | SERVICES, CORE | [address] | | | + + + + + LIVER SET (AST,ALT,BILI TOTAL,BILI DIRECT,ALK PHOS,ALB,PROT TOTAL) (03/27/2017 6:25 AM PST ) + +---------+ + + + | Component | Value | Ref Range | Performed | Pathologist | | | | | At | Signature | + +---------+ + + + | ALBUMIN, | 3.2 (L) | 3.5 - 4.7 g/dL | [facility] | | | PLASMA | | | LABORATORY | | | (LAB) | | | SERVICES, | | | | | | CORE | | + +---------+ + + + | BILIRUBIN | 1.1 | 0.3 - 1.2 mg/dL | [facility] | | | TOTAL | | | LABORATORY | | | | | | SERVICES, | | | | | | CORE | | + +---------+ + + + | BILIRUBIN | 0.4 (H) | 0.0 - 0.3 mg/dL | [facility] | | | DIRECT | | | LABORATORY | | | | | | SERVICES, | | | | | | CORE | | + +---------+ + + + | ALK PHOS | 110 (H) | 42 - 98 U/L | [facility] | | | | | | LABORATORY | | | | | | SERVICES, | | | | | | CORE | | + +---------+ + + + | AST(SGOT) | 62 (H) | <=41 U/L | [facility] | | | | | | LABORATORY | | | | | | SERVICES, | | | | | | CORE | | + +---------+ + + + | ALT (SGPT) | 63 (H) | <=60 U/L | [facility] | | | | | | LABORATORY | | | | | | SERVICES, | | | | | | CORE | | + +---------+ + + + | TOTAL | 7.3 | 6.4 - 8.2 g/dL | [facility] [...] | + + + + + | [facility] | [address] | [place] [address] | | | SERVICES, CORE | [address] | | | + + + + + CARDIOLOGY (03/27/2017 12:00 AM PST) + + + | Narrative | Performed At | + + + | | | + + + CBC (HEMOGRAM) ONLY (03/26/2017 5:27 AM PST) + + + + + + | Component | Value | Ref Range | Performed | Pathologist | | | | | At | Signature | + + + + + + | WHITE CELL | 6.55 | 3.50 - 10.80 | [facility] | | | COUNT | | K/cu mm | LABORATORY | | | | | | SERVICES, | | | | | | CORE | | + + + + + + | RED CELL | 4.91 | 4.00 - 5.20 | [facility] | | | COUNT | | M/cu mm | LABORATORY | | | | | | SERVICES, | | | | | | CORE | | + + + + + + | HEMOGLOBIN | 15.7 | 12.0 - 16.0 | [facility] | | | | | g/dL | LABORATORY | | | | | | SERVICES, | | | | | | CORE | | + + + + + + | HEMATOCRIT | 47.7 (H) | 36.0 - 46.0 % | [facility] | | | | | | LABORATORY | | | | | | SERVICES, | | | | | | CORE | | + + + + + + | MCV | 97.1 (H) | 80.0 - 96.0 fL | [facility] | | | | | | LABORATORY | | | | | | SERVICES, | | | | | | CORE | | + + + + + + | MCHC | 32.9 | 33.0 - 35.5 | [facility] | | | | | g/dL | LABORATORY | | | | | | SERVICES, | | | | | | CORE | | + + + + + + | RDW SD | 51.7 (H) | 35.1 - 46.3 fL | [facility] | | | | | | LABORATORY | | | | | | SERVICES, | | | | | | CORE | | + + + + + + | PLATELET | 157 | 150 - 400 K/cu | [facility] | | | COUNT | | mm | LABORATORY | | | | | | SERVICES, | | | | | | CORE | | + + + + + + | MPV | 11.7 | 9.7 - 12.3 fL | [facility] [...] | + + + + + | [facility] | [address] | [place] [address] | | | [place] | [address] | | | + + + + + MAGNESIUM, PLASMA (03/26/2017 5:27 AM PST) + +-------+ + + + | Component | Value | Ref Range | Performed | Pathologist | | | | | At | Signature | + +-------+ + + + | MAGNESIUM,P | 2.2 | 1.6 - 2.6 mg/dL | [facility] | | | L[facility]MA | | | LABORATORY | | | | | | SERVICES, | | | | | | CORE | | + +-------+ + + + + + | Specimen | + + | Blood - Blood | | (substance) | + + + + + | Narrative | Performed At | + + + | Reference range change effective 09/22/16. | [facility] | | | LABORATORY | | | SERVICES, CORE | + + + + + + + + | Performing | Address | City/State/Zipcode | Phone Number | | Organization | | | | + + + + + | [facility] | [address] | [place] [address] | | | SERVICES, CORE | [address] | | | + + + + + BASIC METABOLIC SET (NA, K, CL, TCO2, BUN, CR, GLU, CA) (03/26/2017 5:27 AM PST) + +---------+ + + + | Component | Value | Ref Range | Performed | Pathologist | | | | | At | Signature | + +---------+ + + + | GLUCOSE, | 106 (H) | 70 - 99 mg/dL | [facility] | | | PLASMA | | | LABORATORY | | | (LAB) | | | SERVICES, | | | | | | CORE | | + +---------+ + + + | BUN, PLASMA | 24 (H) | 6 - 20 mg/dL | [facility] | | | (LAB) | | | LABORATORY | | | | | | SERVICES, | | | | | | CORE | | + +---------+ + + + | CREATININE | 0.77 | 0.60 - 1.10 | [facility] | | | PLASMA | | mg/dL | LABORATORY | | | (LAB) | | | SERVICES, | | | | | | CORE | | + +---------+ + + + | EGFR | >60 | >60 mL/min | [facility] | | | - | | | LABORATORY | | | NEPALESE | | | SERVICES, | | | | | | CORE | | + +---------+ + + + | EGFR NON | >60 | >60 mL/min | [facility] [...] +---------+ + + + | POTASSIUM, | 4.6 | 3.4 - 5.0 | [facility] | | | PLASMA | | mmol/L | LABORATORY | | | (LAB) | | | SERVICES, | | | | | | CORE | | + +---------+ + + + | CHLORIDE, | 110 (H) | 97 - 108 mmol/L | [facility] | | | PLASMA | | | LABORATORY | | | (LAB) | | | SERVICES, | | | | | | CORE | | + +---------+ + + + | TOTAL CO2, | 23 | 21 - 32 mmol/L | [facility] | | | PLASMA | | | LABORATORY | | | (LAB) | | | SERVICES, | | | | | | CORE | | + +---------+ + + + | CALCIUM, | 8.5 (L) | 8.6 - 10.2 | [facility] | | | PLASMA | | mg/dL | LABORATORY | | | (LAB) | | | SERVICES, | | | | | | CORE | | + +---------+ + + + | ANION GAP | 6 | 4 - 11 mmol/L | [facility] [...] | Adult glucose reference range change effective 08-19-17. GFR is | [facility] | | estimated [...] | + + + + + | [facility] | [address] | [place] [address] | | | SERVICES, RAN | [address] | | | + + + + + CARDIOLOGY (03/26/2017 12:00 AM PST) + + + | Narrative | Performed At | + + + | | | + + + CARDIOLOGY (03/26/2017 12:00 AM PST) + + + | Narrative | Performed At | + + + | | | + + + PROCEDURE NOTE (03/25/2017 5:44 PM PST) + + + | Narrative | Performed At | + + + | Varinder Mercedes MD 03/26/2017 3:09 PM CARDIAC | | | CATHETERIZATION LABORATORY PATIENT NAME: Gema Barron | | | [facility] #: [id number] AGE: 52 y.o. SEX: female | | | FELLOW: Mariaelena Castro CATH DATE: 03/25/2017 PERFORMING PHYSICIAN: Daren | | | Gilles CASE NUMBER: REFERRING PHYSICIAN: Gilles Ballesteros Dr. | | | Daren was the Attending physician and was present throughout the | | | entire procedure. Indications Gema Barron is a 52 year | | | old woman who presented from [facility] with shortness | | | of breath and a new diagnosis of right sided heart failure. There | | | is a clinical concern for primary pulmonary arterial hypertension. | | | She presents to the laborer beam house for a right heart catheterization and | | | vasodilator challenge to determine her hemodynamics and help guide | | | therapy. Procedure 1. Venous Access 2. Right Heart | | | Catheterization Procedure Description: Written informed consent | | | was obtained. Vascular ultrasound of right internal jugular access | | | site was performed with Site-Sensuline device. The patient was prepped | | | and draped in the usual sterile fashion. After adequate local | | | anesthesia with 1% lidocaine a micropuncture needle was used to | | | access the right internal jugular vein. Using the standard Sledinger | | | technique an 8 Faroese sheath was placed in the jugular vein. Right | | | heart catheterization was performed with a 7.5 Faroese [place] Dante | | | catheter with serial measures of cardiac pressures in the right | | | atrium, right ventricle, pulmonary artery, and pulmonary capillary | | | wedge position. Cardiac output and index via Marleny method (assumed | | | oxygen consumption) was performed. Subsequently, inhaled nitric | | | oxide was administered incrementally via a non-rebreather mask | | | (5ppm, 10ppm, 20ppm and 40ppm), each dose for a period of 5 minutes | | | followed by serial measurements of the right atrial and pulmonary | | | artery pressures and in selected doses, pulmonary capillary wedge | | | pressures, pulmonary artery saturations and cardiac output and index | | | via thermodilution method were obtained. Finally, the nitric oxide | | | was slowly weaned off through a period of 10 minutes and the | | | [place]-Dnate catheter was removed. Conclusions At room air: 1. | | | Elevated right sided resting filling pressure and normal left sided | | | resting filling pressures 2. Right ventricular and pulmonary pressure | | | tracings demonstrate pulsus alternans 3. Severely elevated | | | pulmonary pressures in setting of normal pulmonary capillary wedge | | | pressure and severely elevated pulmonary vascular resistance, | | | consistent with primary pulmonary hypertension 4. Decreased cardiac | | | output and index by thermodilution and assumed Marleny. 5. Elevated | | | systemic vascular resistance 6. No significant response to | | | vasodilator therapy as detailed below 7. Possible small | | | nonocclusive thrombus attached anterior aspect of wall of right IJ, | | | and more superficially external to the vein was a <1 cm clot at the | | | site of last IF access At 5ppm of Moris: 1. No change in right | | | atrial pressure 2. No change in pulmonary pressures At 10ppm of | | | Moris: 1. No change in right atrial pressure 2. Small decrease in | | | pulmonary pressures 3. Increase in pulmonary artery saturation and | | | cardiac output by Marleny 4. Small decrease in pulmonary vascular | | | resistance At 20ppm of Moris: 1. No change in right atrial pressure | | | 2. No change in pulmonary pressures At 40ppm of Moris: 1. Small | | | decrease in right atrial pressure 2. Decrease in pulmonary pressures | | | and pulmonary vascular resistance 3. Slight decrease in pulmonary | | | capillary wedge pressure with decrease in cardiac output by Marleny and | | | thermodilution Overall with escalating doses of inhaled nitric | | | oxide: 1. No meaningful change in pulmonary arterial pressures with | | | persistent severe pulmonary hypertension 2. Improvement in pulsus | | | alternans with nitric oxide 3. No overall improvement in cardiac | | | output by Marleny or thermodilution 4. Findings communicated with | | | Lesli of the inpatient Heart Failure service Findings at room | | | air: Mean RA: 10 mmHg, A wave of 11 mmHg, V wave of 14 mmHg with | | | significant respiratory variation and prominent y-descent RV: 73/5/8 | | | mmHg with noted pulsus alternans PA: 71/33 mmHg Mean PA: 46 mmHg | | | Wedge: 10 mmHg, with a A wave of 18 and prominent x-descent Blood | | | pressure: 120/87 mmHg, MAP 100 mmHg Heart Rate 90 bpm Pulmonary | | | arterial saturation: 59 % Hemoglobin: 16.8 gm/dl Marleny CO: 2.26 L/min | | | Marleny CI: 1.24 L/min/m2 PVR 16 HAN (Using Marleny CO) SVR [id number] [id number] | | | (Using Marleny CO) Findings at 5ppm of Moris: Mean RA: 11 mmHg, A wave | | | of 17 mmHg, V wave of 15 mmHg with significant respiratory | | | variation and prominent y-descent PA: 74/32 mmHg Mean PA: 46 mmHg | | | Findings at 10ppm of Moris: Mean RA: 11 mmHg, A wave of 17 mmHg, V | | | wave of 14 mmHg with significant respiratory variation and | | | prominent y-descent PA: 70/27 mmHg Mean PA: 41 mmHg Wedge: 9 | | | mmHg, with a A wave of 13 and prominent x-descent Marleny CO: 2.87 L/min | | | Marleny CI: 1.57 L/min/m2 PVR: 11 HAN (Using Marleny CO) | | | Findings at 20ppm of Moris: Mean RA: 11 mmHg, A wave of 17 mmHg, V wave | | | of 13 mmHg with significant respiratory variation and prominent | | | y-descent PA: 69/31 mmHg Mean PA: 44 mmHg Findings at 40ppm | | | of Moris: Mean RA: 9 mmHg, A wave of 16 mmHg, V wave of 11 mmHg with | | | significant respiratory variation and prominent y-descent PA: | | | 66/24 mmHg Mean PA: 38 mmHg Wedge: 9 mmHg, with a A wave of 13 and | | | prominent x-descent TD CO: 2.8 L/min TD CI: 1.53 L/min/m2 PVR: 10 | | | HAN (Using TD CO) Marleny CO: 2.49 L/min Marleny CI: 1.36 L/min/m2 | | | PVR: 12 HAN (Using Marleny CO) Fluoroscopy Time: 0.9 minutes | | | Estimated Blood Loss: minimal Complications: none | | | Jonathon Castro MD Fellow Physician Pager #[phone] Advanced [facility] | | | Failure and Transplant [facility] | | | ATTENDING SURGEON'S ATTESTATION: Pursuant to Federal Medicare | | | Requirements, I certify that Varinder Mercedes MD, MPHS was present | | | for the entire procedure, performed the procedure, and participated | | | directly in the generation of this report. Varinder Koch | | | MD Daren, MPHS Landscape Architect And Plannersaturator Heart Failure and | | | Heart Transplantation Analyst [employer], Mechanical Circulatory | | | Support [facility] Cardiovascular [facility] | | | University | | + + + FUNDRAISING SPECIALIST HF/TX CAR RHC (RIJ) (03/25/2017 2:22 PM PST) + + | Specimen | + + | | + + + + + | Narrative | Performed At | + + + | Procedure | | | performed in the Cardiac Automation Tender. See procedure notes for details. | | + + + POTASSIUM, PLASMA (03/25/2017 8:40 AM PST) + +---------+ + + + | Component | Value | Ref Range | Performed | Pathologist | | | | | At | Signature | + +---------+ + + + | POTASSIUM, | 4.4 | 3.4 - 5.0 | [facility] | [...] | + + + + + | [facility] | [address] | [place] [address] | | | SERVICES, CORE | [address] | | | + + + + + CBC (HEMOGRAM) ONLY (03/25/2017 5:45 AM PST) + + + + + + | Component | Value | Ref Range | Performed | Pathologist | | | | | At | Signature | + + + + + + | WHITE CELL | 6.82 | 3.50 - 10.80 | [facility] | | | COUNT | | K/cu mm | LABORATORY | | | | | | SERVICES, | | | | | | CORE | | + + + + + + | RED CELL | 5.24 (H) | 4.00 - 5.20 | [facility] | | | COUNT | | M/cu mm | LABORATORY | | | | | | SERVICES, | | | | | | CORE | | + + + + + + | HEMOGLOBIN | 16.9 (H) | 12.0 - 16.0 | [facility] | | | | | g/dL | LABORATORY | | | | | | SERVICES, | | | | | | CORE | | + + + + + + | HEMATOCRIT | 50.7 (H) | 36.0 - 46.0 % | [facility] | | | | | | LABORATORY | | | | | | SERVICES, | | | | | | CORE | | + + + + + + | MCV | 96.8 (H) | 80.0 - 96.0 fL | [facility] | | | | | | LABORATORY | | | | | | SERVICES, | | | | | | CORE | | + + + + + + | MCHC | 33.3 | 33.0 - 35.5 | [facility] | | | | | g/dL | LABORATORY | | | | | | SERVICES, | | | | | | CORE | | + + + + + + | RDW SD | 51.9 (H) | 35.1 - 46.3 fL | [facility] | | | | | | LABORATORY | | | | | | SERVICES, | | | | | | CORE | | + + + + + + | PLATELET | 176 | 150 - 400 K/cu | [facility] | | | COUNT | | mm | LABORATORY | | | | | | SERVICES, | | | | | | CORE | | + + + + + + | MPV | 11.4 | 9.7 - 12.3 fL | [facility] [...] | + + + + + | [facility] | [address] | [place] [address] | | | SERVICES, CORE | [address] | | | + + + + + MAGNESIUM, PLASMA (03/25/2017 5:45 AM PST) + +-------+ + + + | Component | Value | Ref Range | Performed | Pathologist | | | | | At | Signature | + +-------+ + + + | MAGNESIUM,P | 2.3 | 1.6 - 2.6 mg/dL | [facility] | | | LASMA | | | LABORATORY | | | | | | SERVICES, | | | | | | CORE | | + +-------+ + + + + + | Specimen | + + | Blood - Blood | | (substance) | + + + + + | Narrative | Performed At | + + + | Reference range change effective 09/22/16. | [facility] | | | LABORATORY | | | RAN LEDESMA | + + + + + + + + | Performing | Address | City/State/Zipcode | Phone Number | | Organization | | | | + + + + + | [facility] | [address] | [place] [address] | | | SERVICES, RAN | [address] | | | + + + + + BASIC METABOLIC SET (NA, K, CL, TCO2, BUN, CR, GLU, CA) (03/25/2017 5:45 AM PST) + +---------+ + + + | Component | Value | Ref Range | Performed | Pathologist | | | | | At | Signature | + +---------+ + + + | GLUCOSE, | 106 (H) | 70 - 99 mg/dL | [facility] | | | PLASMA | | | LABORATORY | | | (LAB) | | | SERVICES, | | | | | | CORE | | + +---------+ + + + | BUN, PLASMA | 29 (H) | 6 - 20 mg/dL | [facility] | | | (LAB) | | | LABORATORY | | | | | | SERVICES, | | | | | | CORE | | + +---------+ + + + | CREATININE | 0.85 | 0.60 - 1.10 | [facility] | | | PLASMA | | mg/dL | LABORATORY | | | (LAB) | | | SERVICES, | | | | | | CORE | | + +---------+ + + + | EGFR | >60 | >60 mL/min | [facility] | | | - | | | LABORATORY | | | NEPALESE | | | SERVICES, | | | | | | CORE | | + +---------+ + + + | EGFR NON | >60 | >60 mL/min | [facility] | | | -BRY | | | LABORATORY | | | RICAN | | | SERVICES, | | | | | | CORE | | + +---------+ + + + | SODIUM, | 136 | 136 - 145 | [facility] | | | PLASMA | | mmol/L | LABORATORY | | | (LAB) | | | SERVICES, | | | | | | CORE | | + +---------+ + + + | POTASSIUM, | 5.0 | 3.4 - 5.0 | [facility] | [...] + + + | TOTAL CO2, | 20 (L) | 21 - 32 mmol/L | [facility] | | | PLASMA | | | LABORATORY | | | (LAB) | | | SERVICES, | | | | | | CORE | | + +---------+ + + + | CALCIUM, | 8.7 | 8.6 - 10.2 | [facility] | [...] +---------+ + + + | POTASSIUM | Sl Hemo | | [facility] | | | [...] Adult glucose reference range change effective 7-12-17. Sample | [facility] | | hemolyzed. Results for K, Total Bili, Direct Bili, AST, LDH, or HDL | LABORATORY | | may be inaccurate. Refer to comment under test result. GFR is | SERVICES, CORE | | estimated using the MDRD equation recommended by the National Kidney | | | Disease Education Program. Estimated GFR Interpretive Information: | | | <60 mL/min/1.73 sq m Chronic [...] | + + + + + | [facility] | [address] | [place] [address] | | | SERVICES, RAN | [address] | | | + + + + + CARDIOLOGY (03/25/2017 12:00 AM PST) + + + | Narrative | Performed At | + + + | | | + + + CARDIOLOGY (03/25/2017 12:00 AM PST) + + + | Narrative | Performed At | + + + | | | + + + SPIROMETRY, PULM FUNCTION LAB (03/24/2017 4:06 PM PST) + + + + + + | Component | Value | Ref Range | Performed | Pathologist | | | | | At | Signature | + + + + + + | PULMONARY | Site: [facility] | | [facility] | | | INTERPRETAT | [facility] | | SPECIAL | | | ION | [facility] | | DIAGNOSTICS | | | | [address],[place], [place], | | - | | | | [id number]: [id number] | | PULMONARY | | | | Name: GEMA BARRON | | FUNCTION | | | | SVisit Date: 03/24/2017 | | | | | | Second ID: | | | | | | [id number]: | | | | | | Orly Landin: 52 | | | | | | : 1965 Sex: | | | | | | Female Race: | | | | | | CaucasianHeight: 164.00 | | | | | | Cms Weight: 74.50 | | | | | | Kgs BSA: | | | | | | 1.81Diagnosis: Reactive | | | | | | Airway Disease | | | | | | J45.90Dyspnea: No | | | | | | Dyspnea Cough: | | | | | | Productive Wheeze: No | | | | | | WheezeTbco Prod: Never | | | | | | SmokedPost Test | | | | | | Comments: Patient height | | | | | | and weight reviewed. | | | | | | Good patient effort | | | | | | &cooperation. The | | | | | | results of this test | | | | | | meet the ATS standards | | | | | | for acceptabilityand | | | | | | repeatability. | | | | | | | | | | | | | | | | | | Pre-Bronch | | | | | | Post-Bronch | | | | | | | | | | | | Pred | | | | | | Actual %Pred Actual | | | | | | %ChngSPIROMETRYFVC (L) | | | | | | | | | | | | 3.54 | | | | | | 3.17 89FEV1 (L) | | | | | | | | | | | | 2.78 2.49 | | | | | | 89FEV1/FVC (%) | | | | | | | | | | | | 80 79 | | | | | | 98FEF 25% (L/sec) | | | | | | 5.20 | | | | | | 4.47 85FEF 50% | | | | | | (L/sec) | | | | | | 3.83 2.36 | | | | | | 61FEF 75% (L/sec) | | | | | | | | | | | | 1.37 1.09 | | | | | | 79FEF 25-75% (L/sec) | | | | | | 2.67 | | | | | | 2.14 80FEF Max | | | | | | (L/sec) | | | | | | 6.71 6.36 | | | | | | 94FIVC (L) | | | | | | | | | | | | 3.04FIF | | | | | | 50% (L/sec) | | | | | | 4.97 | | | | | | 5.97 120FIF Max | | | | | | (L/sec) | | | | | | | | | | | | 5.98LUNG | | | | | | VOLUMESDIFFUSIONDLCOunc | | | | | | (ml/min/mmHg) | | | | | | 22.62 22.04 | | | | | | 97DLCOadj | | | | | | (ml/min/mmHg) | | | | | | 22.62 19.76 | | | | | | 87DL/VA | | | | | | (ml/min/mmHg/L) | | | | | | 4.40 3.99 | | | | | | 90VA (L) | | | | | | | | | | | | 5.14 4.95 | | | | | | 96BLOOD GASESHgb (gm/dL) | | | | | | | | | | | | 17.9 | | | | | | Interpretation: | | | | | | INTERPRETATION:SPIROMETR | | | | | | Y:Spirometry is within | | | | | | normal limits for age, | | | | | | height and sex. | | | | | | DIFFUSING CAPACITY:The | | | | | | diffusing capacity is | | | | | | within normal limits. | | | | | | This interpretation | | | | | | ofdiffusing capacity | | | | | | takes into account the | | | | | | patient's hemoglobin | | | | | | level.Hemoglobin of 17.9 | | | | | | was used. If asthma is | | | | | | suspected, suggest | | | | | | Methacholine Challenge | | | | | | to assess bronchial | | | | | | responsiveness.This | | | | | | interpretation has been | | | | | | electronically signed: | | | | | | Petar Brown | | | | | | 03/29/201711:01:19 AM | | | | + + + + + + | FVC PRE | 3.17 | 3.54 L | [facility] | | | | | | SPECIAL | | | | | | DIAGNOSTICS | | | | | | - | | | | | | PULMONARY | | | | | | FUNCTION | | + + + + + + | FVC PRE | 89 | % | [facility] | | | (%REF) | | | SPECIAL | | | | | | DIAGNOSTICS | | | | | | - | | | | | | PULMONARY | | | | | | FUNCTION | | + + + + + + | FEV1 PRE | 2.49 | 2.78 L | [facility] | | | | | | SPECIAL | | | | | | DIAGNOSTICS | | | | | | - | | | | | | PULMONARY | | | | | | FUNCTION | | + + + + + + | FEV1 PRE | 89 | % | [facility] | | | (%REF) | | | SPECIAL | | | | | | DIAGNOSTICS | | | | | | - | | | | | | PULMONARY | | | | | | FUNCTION | | + + + + + + | FEV1/FVC | 79 | 80 % | [facility] | | | PRE | | | SPECIAL | | | | | | DIAGNOSTICS | | | | | | - | | | | | | PULMONARY | | | | | | FUNCTION | | + + + + + + | FEV1/FVC | 98 | % | [facility] | | | PRE (%REF) | | | SPECIAL | | | | | | DIAGNOSTICS | | | | | | - | | | | | | PULMONARY | | | | | | FUNCTION | | + + + + + + | PEF PRE | 6.36 | 6.71 L/sec | [facility] | | | | | | SPECIAL | | | | | | DIAGNOSTICS | | | | | | - | | | | | | PULMONARY | | | | | | FUNCTION | | + + + + + + | PEF PRE | 94 | % | [facility] | | | (%REF) | | | SPECIAL | | | | | | DIAGNOSTICS | | | | | | - | | | | | | PULMONARY | | | | | | FUNCTION | | + + + + + + | ZBJ50-31% | 2.14 | 2.67 L/sec | [facility] | | | PRE | | | SPECIAL | | | | | | DIAGNOSTICS | | | | | | - | | | | | | PULMONARY | | | | | | FUNCTION | | + + + + + + | LVD84-82% | 80 | % | [facility] | | | PRE (%REF) | | | SPECIAL | | | | | | DIAGNOSTICS | | | | | | - | | | | | | PULMONARY | | | | | | FUNCTION | | + + + + + + | FIF50% PRE | 5.97 | 4.97 L/sec | [facility] | | | | | | SPECIAL | | | | | | DIAGNOSTICS | | | | | | - | | | | | | PULMONARY | | | | | | FUNCTION | | + + + + + + | FIF50% PRE | 120 | % | [facility] | | | (%REF) | | | SPECIAL | | | | | | DIAGNOSTICS | | | | | | - | | | | | | PULMONARY | | | | | | FUNCTION | | + + + + + + | DLCO PRE | 22.04 | 22.62 | [facility] | | | | | ml/min/mmHg | SPECIAL | | | | | | DIAGNOSTICS | | | | | | - | | | | | | PULMONARY | | | | | | FUNCTION | | + + + + + + | DLCO PRE | 97 | % | [facility] | | | (%REF) | | | SPECIAL | | | | | | DIAGNOSTICS | | | | | | - | | | | | | PULMONARY | | | | | | FUNCTION | | + + + + + + | DLCO ADJ | 19.76 | 22.62 | [facility] | | | PRE | | ml/min/mmHg | SPECIAL | | | | | | DIAGNOSTICS | | | | | | - | | | | | | PULMONARY | | | | | | FUNCTION | | + + + + + + | DLCO ADJ | 87 | % | [facility] | | | PRE (%REF) | | | SPECIAL | | | | | | DIAGNOSTICS | | | | | | - | | | | | | PULMONARY | | | | | | FUNCTION | | + + + + + + | DLCO/VA ADJ | 3.99 | ml/min/mmHg/L | [facility] | | | PRE | | | SPECIAL | | | | | | DIAGNOSTICS | | | | | | - | | | | | | PULMONARY | | | | | | FUNCTION | | + + + + + + | DLCO/VA ADJ | 90 | % | [facility] | | | PRE (%REF) | | | SPECIAL | | | | | | DIAGNOSTICS | | | [...] [facility] | [address] | [place], [place] | | | DIAGNOSTICS - | [address] | [address] | | | PULMONARY FUNCTION | | | | + + + + + POTASSIUM, PLASMA (03/24/2017 11:56 AM PST) + +---------+ + + + | Component | Value | Ref Range | Performed | Pathologist | | | | | At | Signature | + +---------+ + + + | POTASSIUM, | 4.1 | 3.4 - 5.0 | [facility] | [...] | + + + + + | [facility] | [address] | [place] [address] | | | SERVICES, CORE | [address] | | | + + + + + CBC (HEMOGRAM) ONLY (03/24/2017 6:18 AM PST) + + + + + + | Component | Value | Ref Range | Performed | Pathologist | | | | | At | Signature | + + + + + + | WHITE CELL | 6.46 | 3.50 - 10.80 | [facility] | | | COUNT | | K/cu mm | LABORATORY | | | | | | SERVICES, | | | | | | CORE | | + + + + + + | RED CELL | 5.56 (H) | 4.00 - 5.20 | [facility] | | | COUNT | | M/cu mm | LABORATORY | | | | | | SERVICES, | | | | | | CORE | | + + + + + + | HEMOGLOBIN | 17.9 (H) | 12.0 - 16.0 | [facility] | | | | | g/dL | LABORATORY | | | | | | SERVICES, | | | | | | CORE | | + + + + + + | HEMATOCRIT | 54.0 (H) | 36.0 - 46.0 % | [facility] | | | | | | LABORATORY | | | | | | SERVICES, | | | | | | CORE | | + + + + + + | MCV | 97.1 (H) | 80.0 - 96.0 fL | [facility] | | | | | | LABORATORY | | | | | | SERVICES, | | | | | | CORE | | + + + + + + | MCHC | 33.1 | 33.0 - 35.5 | [facility] | | | | | g/dL | LABORATORY | | | | | | SERVICES, | | | | | | CORE | | + + + + + + | RDW SD | 53.1 (H) | 35.1 - 46.3 fL | [facility] | | | | | | LABORATORY | | | | | | SERVICES, | | | | | | CORE | | + + + + + + | PLATELET | 168 | 150 - 400 K/cu | [facility] | | | COUNT | | mm | LABORATORY | | | | | | SERVICES, | | | | | | CORE | | + + + + + + | MPV | 11.5 | 9.7 - 12.3 fL | [facility] [...] | + + + + + | [facility] | [address] | [place] [address] | | | BALTAZAR, RAN | [address] | | | + + + + + MAGNESIUM, PLASMA (03/24/2017 6:18 AM PST) + +-------+ + + + | Component | Value | Ref Range | Performed | Pathologist | | | | | At | Signature | + +-------+ + + + | MAGNESIUM,P | 2.3 | 1.6 - 2.6 mg/dL | [facility] | | | [facility] | | | LABORATORY | | | | | | BALTAZAR, | | | | | | RAN | | + +-------+ + + + + + | Specimen | + + | Blood - Blood | | (substance) | + + + + + | Narrative | Performed At | + + + | Reference range change effective 09/22/16. | [facility] | | | LABORATORY | | | SERVICES, CORE | + + + + + + + + | Performing | Address | City/State/Zipcode | Phone Number | | Organization | | | | + + + + + | [facility] | [address] | [place] [address] | | | BALTAZAR, CORE | [address] | | | + + + + + BASIC METABOLIC SET (NA, K, CL, TCO2, BUN, CR, GLU, CA) (03/24/2017 6:18 AM PST) + +---------+ + + + [...] + + + | BUN, PLASMA | 25 (H) | 6 - 20 mg/dL | [facility] | | | (LAB) | | | LABORATORY | | | | | | SERVICES, | | | | | | CORE | | + +---------+ + + + | CREATININE | 0.91 | 0.60 - 1.10 | [facility] | | | PLASMA | | mg/dL | LABORATORY | | | (LAB) | | | SERVICES, | | | | | | CORE | | + +---------+ + + + | EGFR | >60 | >60 mL/min | [facility] | | | - | | | LABORATORY | | | NEPALESE | | | SERVICES, | | | | | | CORE | | + +---------+ + + + | EGFR NON | >60 | >60 mL/min | [facility] | | | -BRY | | | LABORATORY | | | RICAN | | | SERVICES, | | | | | | CORE | | + +---------+ + + + | SODIUM, | 137 | 136 - 145 | [facility] | | | PLASMA | | mmol/L | LABORATORY | | | (LAB) | | | SERVICES, | | | | | | CORE | | + +---------+ + + + | POTASSIUM, | 5.3 (H) | 3.4 - 5.0 | [facility] | | | PLASMA | | mmol/L | LABORATORY | | | (LAB) | | | SERVICES, | | | | | | CORE | | + +---------+ + + + | CHLORIDE, | 106 | 97 - 108 mmol/L | [facility] | | | PLASMA | | | LABORATORY | | | (LAB) | | | SERVICES, | | | | | | CORE | | + +---------+ + + + | TOTAL CO2, | 23 | 21 - 32 mmol/L | [facility] [...] +---------+ + + + | POTASSIUM | Sl Hemo | | [facility] | | | [...] Adult glucose reference range change effective 7-12-17. Sample | [facility] | | hemolyzed. Results for K, Total Bili, Direct Bili, AST, LDH, or HDL | LABORATORY | | may be inaccurate. Refer to comment under test result. GFR is | SERVICES, CORE | | estimated using the MDRD equation recommended by the National Kidney | | | Disease Education Program. Estimated GFR Interpretive Information: | | | <60 mL/min/1.73 sq m Chronic [...] | + + + + + | [facility] | [address] | [place] [address] | | | SERVICES, CORE | [address] | | | + + + + + CARDIOLOGY (03/24/2017 12:00 AM PST) + + + | Narrative | Performed At | + + + | | | + + + CARDIOLOGY (03/24/2017 12:00 AM PST) + + + | Narrative | Performed At | + + + | | | + + + SCL-70 AB (03/23/2017 2:55 PM PST) + + + + + + | Component | Value | Ref Range | Performed | Pathologist | | | | | At | Signature | + + + + + + | SCL-70 AB | 0Comment: INTERPRETIVE | 0 - 40 AU/mL | [facility] | | | | INFORMATION: Scleroderma | | REG UNIV | | | | (Scl-70) (RON) Ab, IgG | | PTH - INTFC | | | | 29 AU/mL or Less | | | | | | ............. Negative | | | | | | 30 - 40 AU/mL | | | | | | ................ | | | | | | Equivocal 41 AU/mL or | | | | | | Greater .......... | | | | | | Positive The presence of | | | | | | Scl-70 antibodies (also | | | | | | referred to as | | | | | | topoisomerase I, rosemarie-I | | | | | | or STEFANO) is considered | | | | | | diagnostic for systemic | | | | | | sclerosis (SSc). Scl-70 | | | | | | antibodies alone are | | | | | | detected in about 20 | | | | | | percent of SSc patients | | | | | | and are associated with | | | | | | the diffuse form of the | | | | | | disease, which may | | | | | | include specific organ | | | | | | involvement and poor | | | | | | prognosis. Scl-70 | | | | | | antibodies have also | | | | | | been reported in a | | | | | | varying percentage of | | | | | | patients with systemic | | | | | | lupus erythematosus | | | | | | (SLE). Scl-70 (rosemarie-1) | | | | | | is a DNA binding protein | | | | | | and anti-DNA/DNA | | | | | | complexes in the sera of | | | | | | SLE patients may bind | | | | | | to rosemarie-I, leading to a | | | | | | false-positive result. | | | | | | The presence of Scl-70 | | | | | | antibody in sera may | | | | | | also be due to | | | | | | contamination of | | | | | | recombinant Scl-70 with | | | | | | DNA derived from | | | | | | cellular material used | | | | | | in immunoassays. Strong | | | | | | clinical correlation is | | | | | | recommended if both | | | | | | Scl-70 and dsDNA | | | | | | antibodies are detected. | | | | | | Negative results do | | | | | | not necessarily rule out | | | | | | the presence of SSc. If | | | | | | clinical suspicion | | | | | | remains, consider | | | | | | further testing for | | | | | | centromere, RNA | | | | | | polymerase III and | | | | | | U3-CORRECTIONAL PROGRAM OFFICER, PM/Scl, or Th/To | | | | | | antibodies.Performed by | | | | | | [facility],[address] | | | | | [address], [place] | | | | | | [address] | | | | | | [phone] | | | | | | Moises [...] [facility] | [address] | [place], [place] | | | [facility] | | [address] | | + + + + + CBC (HEMOGRAM) ONLY (03/23/2017 10:15 AM PST) + + + + + + | Component | Value | Ref Range | Performed | Pathologist | | | | | At | Signature | + + + + + + | WHITE CELL | 5.89 | 3.50 - 10.80 | [facility] | | | COUNT | | K/cu mm | LABORATORY | | | | | | SERVICES, | | | | | | CORE | | + + + + + + | RED CELL | 5.36 (H) | 4.00 - 5.20 | [facility] | | | COUNT | | M/cu mm | LABORATORY | | | | | | SERVICES, | | | | | | CORE | | + + + + + + | HEMOGLOBIN | 17.4 (H) | 12.0 - 16.0 | [facility] | | | | | g/dL | LABORATORY | | | | | | SERVICES, | | | | | | CORE | | + + + + + + | HEMATOCRIT | 51.5 (H) | 36.0 - 46.0 % | [facility] | | | | | | LABORATORY | | | | | | SERVICES, | | | | | | CORE | | + + + + + + | MCV | 96.1 (H) | 80.0 - 96.0 fL | [facility] | | | | | | LABORATORY | | | | | | SERVICES, | | | | | | CORE | | + + + + + + | MCHC | 33.8 | 33.0 - 35.5 | [facility] | | | | | g/dL | LABORATORY | | | | | | SERVICES, | | | | | | CORE | | + + + + + + | RDW SD | 52.9 (H) | 35.1 - 46.3 fL | [facility] | | | | | | LABORATORY | | | | | | SERVICES, | | | | | | CORE | | + + + + + + | PLATELET | 186 | 150 - 400 K/cu | [facility] | | | COUNT | | mm | LABORATORY | | | | | | SERVICES, | | | | | | CORE | | + + + + + + | MPV | 11.2 | 9.7 - 12.3 fL | [facility] [...] | + + + + + | [facility] | [address] | [place] [address] | | | SERVICES, CORE | [address] | | | + + + + + BASIC METABOLIC SET (NA, K, CL, TCO2, BUN, CR, GLU, CA) (03/23/2017 10:15 AM PST) + +---------+ + + + | Component | Value | Ref Range | Performed | Pathologist | | | | | At | Signature | + +---------+ + + + | GLUCOSE, | 95 | 70 - 99 mg/dL | [facility] | | | PLASMA | | | LABORATORY | | | (LAB) | | | SERVICES, | | | | | | CORE | | + +---------+ + + + | BUN, PLASMA | 22 (H) | 6 - 20 mg/dL | [facility] | | | (LAB) | | | LABORATORY | | | | | | SERVICES, | | | | | | CORE | | + +---------+ + + + | CREATININE | 0.86 | 0.60 - 1.10 | [facility] | | | PLASMA | | mg/dL | LABORATORY | | | (LAB) | | | SERVICES, | | | | | | CORE | | + +---------+ + + + | EGFR | >60 | >60 mL/min | [facility] | | | - | | | LABORATORY | | | NEPALESE | | | SERVICES, | | | | | | CORE | | + +---------+ + + + | EGFR NON | >60 | >60 mL/min | [facility] | | | -BRY | | | LABORATORY | | | RICAN | | | SERVICES, | | | | | | CORE | | + +---------+ + + + | SODIUM, | 135 (L) | 136 - 145 | [facility] | | | PLASMA | | mmol/L | LABORATORY | | | (LAB) | | | SERVICES, | | | | | | CORE | | + +---------+ + + + | POTASSIUM, | 4.3 | 3.4 - 5.0 | [facility] | | | PLASMA | | mmol/L | LABORATORY | | | (LAB) | | | SERVICES, | | | | | | CORE | | + +---------+ + + + | CHLORIDE, | 104 | 97 - 108 mmol/L | [facility] | | | PLASMA | | | LABORATORY | | | (LAB) | | | SERVICES, | | | | | | CORE | | + +---------+ + + + | TOTAL CO2, | 24 | 21 - 32 mmol/L | [facility] | | | PLASMA | | | LABORATORY | | | (LAB) | | | SERVICES, | | | | | | CORE | | + +---------+ + + + | CALCIUM, | 9.0 | 8.6 - 10.2 | [facility] | | | PLASMA | | mg/dL | LABORATORY | | | (LAB) | | | SERVICES, | | | | | | CORE | | + +---------+ + + + | ANION GAP | 7 | 4 - 11 mmol/L | [facility] [...] | Adult glucose reference range change effective 08-19-16. GFR is | [facility] | | estimated [...] | + + + + + | [facility] | [address] | [place] [address] | | | BALTAZAR, RAN | [address] | | | + + + + + MAGNESIUM, PLASMA (03/23/2017 10:15 AM PST) + +-------+ + + + | Component | Value | Ref Range | Performed | Pathologist | | | | | At | Signature | + +-------+ + + + | MAGNESIUM,P | 2.2 | 1.6 - 2.6 mg/dL | [facility] | | | FILIBERTO | | | LABORATORY | | | | | | BALTAZAR, | | | | | | CORE | | + +-------+ + + + + + | Specimen | + + | Blood - Blood | | (substance) | + + + + + | Narrative | Performed At | + + + | Reference range change effective 09/22/16. | [facility] | | | LABORATORY | | | SERVICES, CORE | + + + + + + + + | Performing | Address | City/State/Zipcode | Phone Number | | Organization | | | | + + + + + | [facility] | [address] | [place] [address] | | | SERVICES, CORE | [address] | | | + + + + + INR (03/23/2017 10:15 AM PST) + +-------+ + + + | Component | Value | Ref Range | Performed | Pathologist | | | | | At | Signature | + +-------+ + + + | INR | 1.06 | 0.90 - 1.20 INR | [facility] | | | | | | LABORATORY | | | | | | SERVICES, | | | | | | CORE | | + +-------+ + + + + + | Specimen | + + | Blood - Blood | | (substance) | + + + + + | Narrative | Performed At | + + + | INR Therapeutic ranges for full anticoagulation: INR for | [facility] | | Venous Thromboembolism (2.0 - 3.0) INR INR for | LABORATORY | | most patients with mech. valves (2.5 - 3.5) INR | [facility] | + + + + + + + + | Performing | Address | City/State/Zipcode | Phone Number | | Organization | | | | + + + + + | [facility] | [address] | [place] [address] | | | [place]AN [place] | [address] | | | + + + + + CARDIOLOGY (03/23/2017 12:00 AM PST) + + + | Narrative | Performed At | + + + | | | + + + CARDIOLOGY (03/23/2017 12:00 AM PST) + + + | Narrative | Performed At | + + + | | | + + + HEPARIN, EITHER STANDARD / LMW, BLOOD (03/22/2017 5:58 PM PST) + +-------+ + + + | Component | Value | Ref Range | Performed | Pathologist | | | | | At | Signature | + +-------+ + + + | HEPARIN, | 1.48 | U/mL | [facility] | | | STD LMW | | | LABORATORY | | | | | | SERVICES, | | | | | | CORE | | + +-------+ + + + + + | Specimen | + + | Blood - Blood | | (substance) | + + + + + | Narrative | Performed At | + + + | Venous Disease Heparin Protocol Heparin level 6 hrs after every | [facility] | | heparin rate change; If heparin level within target range for 2 | LABORATORY | | consecutive results, recheck every AM Heparin, Either STD/LMW - | SERVICES, CORE | | Therapeutic Ranges: Heparin, Unfractionated: 0.35 - 0.70 U/mL | | | Enoxaparin, LMWH: 0.70 - 1.20 U/mL Dalteparin, LMWH: | | | 0.70 - 1.20 U/mL Tinzaparin, LMWH: Therapeutic | | | range not established. | | | Preliminary studies suggest range | | | similar to dalteparin. Clinical | | | correlation required. Heparin levels may be unreliable for: | | | Total bilirubin >28.8 mg/dL | | | Triglycerides >690 mg/dL | | | or Moderate to Gross Hemolysis | | + + + + + + + + | Performing | Address | City/State/Zipcode | Phone Number | | Organization | | | | + + + + + | [facility] | [address] | [place] [address] | | | SERVICES, [facility] | [address] | | | + + + + + CTA CHEST PULMONARY EMBOLISM W CONTRAST (03/22/2017 4:45 PM PST) + + | Specimen | + + | | + + + + + | Narrative | Performed At | + + + | EXAM: CTA CHEST PULMONARY EMBOLISM 03/22/17 16:39:23 HISTORY: | BEATRIS | | Acute chest pain. Pulmonary embolism suspected. COMPARISON: | RADIOLOGY VOICE | | Chest radiograph 03/18/17, outside chest CTA 03/12/17 TECHNIQUE: | RECOGNITION | | Following uneventful administration of 80 ml intravenous contrast | | | helical scanning was obtained of the chest and reviewed in soft tissue | | | and lung algorithm. Oblique MIP images were also generated and | | | reviewed. FINDINGS: Opacification is adequate for assessment of | | | pulmonary artery emboli. There is no filling defect in the | | | pulmonary arteries to the proximal subsegmental level. there is | | | a 4 mm nodule along the superior aspect of the left major fissure that | | | likely represents an intrapulmonary lymph node. Aside from mild left | | | lower lobe and left upper lobe lingular atelectasis, the lungs are | | | clear. There is no effusion or pneumothorax. The airways are clear. | | | The visible thyroid is unremarkable. Aortic arch branching is | | | conventional. There is severe right ventricular and right atrial | | | enlargement. There is severe central pulmonary arterial enlargement. | | | There is no pericardial effusion. There is no mediastinal, hilar, or | | | axillary adenopathy. There is no incidental intracardiac or aortic | | | filling defect. Visible portions of liver, gallbladder, spleen, | | | pancreas, adrenals, kidneys, and bowel are unremarkable. There is | | | a 17 x 17 mm nodule in the central left breast. There is no acute | | | fracture or focal osseous lesion. IMPRESSION: No pulmonary | | | embolus. Severe central pulmonary arterial, right ventricular, and | | | right atrial enlargement consistent with chronic pulmonary | | | hypertension and right heart failure. Incidental 17 mm nodule in | | | the central left breast. Further evaluation with mammography on a | | | non-urgent basis is recommended. I have personally reviewed the | | | images and, if necessary, edited the report. I agree with the | | | report as now presented. | | + + + + + | Procedure Note | + + | Service Account, [employer] Res In Interface - 03/22/2017 5:32 PM PST EXAM: CTA CHEST | | PULMONARY EMBOLISM 03/22/17 16:39:23HISTORY: Acute chest pain. Pulmonary embolism | | suspected. COMPARISON: Chest radiograph 03/18/17, outside chest CTA 03/12/17TECHNIQUE: | | Following uneventful administration of 80 ml intravenous contrast helical scanning was | | obtained of the chest and reviewed in soft tissue and lung algorithm. Oblique MIP images | | were also generated and reviewed.FINDINGS:Opacification is adequate for assessment of | | pulmonary artery emboli.There is no filling defect in the pulmonary arteries to the | | proximal subsegmental level. there is a 4 mm nodule along the superior aspect of the | | left major fissure that likely represents an intrapulmonary lymph node. Aside from mild | | left lower lobe and left upper lobe lingular atelectasis, the lungs are clear. There is | | no effusion or pneumothorax. The airways are clear.The visible thyroid is unremarkable. | | Aortic arch branching is conventional. There is severe right ventricular and right | | atrial enlargement. There is severe central pulmonary arterial enlargement. There is no | | pericardial effusion. There is no mediastinal, hilar, or axillary adenopathy. There is | | no incidental intracardiac or aortic filling defect.Visible portions of liver, | | gallbladder, spleen, pancreas, adrenals, kidneys, and bowel are unremarkable.There is a | | 17 x 17 mm nodule in the central left breast. There is no acute fracture or focal | | osseous lesion.IMPRESSION:No pulmonary embolus.Severe central pulmonary arterial, right | | ventricular, and right atrial enlargement consistent with chronic pulmonary hypertension | | and right heart failure.Incidental 17 mm nodule in the central left breast. Further | | evaluation with mammography on a non-urgent basis is recommended.I have personally | | reviewed the images and, if necessary, edited the report. I agree with the report as | | now presented. | |IMPRESSION: | | | |No pulmonary embolus. | | | |Severe central pulmonary arterial, right ventricular, and right atrial enlargement consiste nt with chronic pulmonary hypertension and right heart failure. | | | |Incidental 17 mm nodule in the central left breast. Further evaluation with mammography on a non-urgent basis is recommended. | | | | | |I have personally reviewed the images and, if necessary, edited the report. I agree with t he report as now presented. | + + + +---------+ + + | Performing | Address | City/State/Zipcode | Phone Number | | Organization | | | | + +---------+ + + | [facility] | | | | | VOICE RECOGNITION | | | | + +---------+ + + VASC LAB VENOUS DUPLEX LOWER EXTREMITY BILAT COMP (03/22/2017 2:32 PM PST) + + | Specimen | + + | | + + + + + | Narrative | Performed At | + + + | Bilateral: The duplex scanner was used to examine the deep and | [facility] | | superficial veins of the right and left lower extremities. The | RADIOLOGY VASC | | veins are patent bilaterally with normal flow and responses to | [facility] | | augmentation and compression maneuvers and no thrombus is noted. | | | Conclusions: A normal venous examination of the bilateral lower | | | extremities. No venous thrombosis was detected. I have | | | personally reviewed the images and, if necessary, edited the report. | | | I agree with the report as now presented. | | + + + + + | Procedure Note | + + | Service Account, [employer] Res In Interface - 03/22/2017 3:17 PM PST Bilateral: The | | duplex scanner was used to examine the deep and superficial veins of the right and left | | lower extremities. The veins are patent bilaterally with normal flow and responses to | | augmentation and compression maneuvers and no thrombus is noted.Conclusions: A normal | | venous examination of the bilateral lower extremities. No venous thrombosis was | | detected.I have personally reviewed the images and, if necessary, edited the report. I | | agree with the report as now presented. | | | | | |I have personally reviewed the images and, if necessary, edited the report. I agree with t he report as now presented. | + + + +---------+ + + | Performing | Address | City/State/Zipcode | Phone Number | | Organization | | | | + +---------+ + + | [facility] | | | | | VAS US | | | | + +---------+ + + CBC (HEMOGRAM) ONLY (03/22/2017 11:34 AM PST) + + + + + + | Component | Value | Ref Range | Performed | Pathologist | | | | | At | Signature | + + + + + + | WHITE CELL | 7.27 | 3.50 - 10.80 | [facility] | | | COUNT | | K/cu mm | LABORATORY | | | | | | SERVICES, | | | | | | CORE | | + + + + + + | RED CELL | 5.67 (H) | 4.00 - 5.20 | [facility] | | | COUNT | | M/cu mm | LABORATORY | | | | | | SERVICES, | | | | | | CORE | | + + + + + + | HEMOGLOBIN | 18.2 (H) | 12.0 - 16.0 | [facility] | | | | | g/dL | LABORATORY | | | | | | SERVICES, | | | | | | CORE | | + + + + + + | HEMATOCRIT | 53.9 (H) | 36.0 - 46.0 % | [facility] | | | | | | LABORATORY | | | | | | SERVICES, | | | | | | CORE | | + + + + + + | MCV | 95.1 | 80.0 - 96.0 fL | [facility] | | | | | | LABORATORY | | | | | | SERVICES, | | | | | | CORE | | + + + + + + | MCHC | 33.8 | 33.0 - 35.5 | [facility] | | | | | g/dL | LABORATORY | | | | | | SERVICES, | | | | | | CORE | | + + + + + + | RDW SD | 52.6 (H) | 35.1 - 46.3 fL | [facility] | | | | | | LABORATORY | | | | | | SERVICES, | | | | | | CORE | | + + + + + + | PLATELET | 196 | 150 - 400 K/cu | [facility] | | | COUNT | | mm | LABORATORY | | | | | | SERVICES, | | | | | | CORE | | + + + + + + | MPV | 11.0 | 9.7 - 12.3 fL | [facility] [...] + + | [facility] | [address] | [place] [address] | | | SERVICES, CORE | [address] | | | + + + + + APTT (ACT. PART. THROMBO TIME) (03/22/2017 11:34 AM PST) + +-------+ + + + | Component | Value | Ref Range | Performed | Pathologist | | | | | At | Signature | + +-------+ + + + | APTT | 33.1 | 26.0 - 36.0 | [facility] | | | | | seconds | LABORATORY | | | | | | SERVICES, | | | | | | CORE | | + +-------+ + + + + + | Specimen | + + | Blood - Blood | | (substance) | + + + + + | Narrative | Performed At | + + + | APTT Therapeutic Range: (75 - | [facility] | | 120) sec Heparin levels of 0.35 - 0.7 U/mL | LABORATORY | | | SERVICES, CORE | + + + + + + + + | Performing | Address | City/State/Zipcode | Phone Number | | Organization | | | | + + + + + | [facility] | [address] | [place] [address] | | | SERVICES, CORE | [address] | | | + + + + + INR (03/22/2017 11:34 AM PST) + +-------+ + + + | Component | Value | Ref Range | Performed | Pathologist | | | | | At | Signature | + +-------+ + + + | INR | 1.08 | 0.90 - 1.20 INR | [facility] | | | | | | LABORATORY | | | | | | SERVICES, | | | | | | CORE | | + +-------+ + + + + + | Specimen | + + | Blood - Blood | | (substance) | + + + + + | Narrative | Performed At | + + + | INR Therapeutic ranges for full anticoagulation: INR for | [facility] | | Venous Thromboembolism (2.0 - 3.0) INR INR for | LABORATORY | | most patients with mech. valves (2.5 - 3.5) INR | SERVICES, CORE | + + + + + + + + | Performing | Address | City/State/Zipcode | Phone Number | | Organization | | | | + + + + + | [facility] | [address] | [place] [address] | | | SERVICES, CORE | [address] | | | + + + + + RIGHT HEART CATHETERIZATION (03/22/2017 11:25 AM PST) + + + | Narrative | Performed At | + + + | Martin Banuelos MD 03/22/2017 3:30 PM CARDIAC FUNDRAISING SPECIALIST | | | PATIENT NAME: Gema Barron [facility] #: [id number] DATE OF : | | | 1965 STAFF PHYSICIAN: Martin Banuelos M.D. FELLOW: DACIA CALZADA, | | | REFERRING PHYSICIAN: Jessica Domingo MD PRIMARY CARE PHYSICIAN: | | | Eve Daugherty MD SUMMARY: 1. Normal resting RA | | | pressure 2. Moderately elevated RV pressure 3. Procedure terminated | | | early due to possible pulmonary embolism. PROCEDURES | | | PERFORMED: Right Heart Catheterization (68931). | | | COMPLICATIONS: None. CLINICAL BRIEF: Gema Barron is a 52 | | | y.o. year old patient with history of new onset heart failure and | | | pulmonary who is referred for right heart catheterization to assess | | | cardiac hemodynamics. Vascular ultrasound was performed for | | | assessment of the access site. INDICATIONS 1. Heart failure 2. | | | Pulmonary Hypertension TECHNIQUE: Access: Right internal | | | jugular vein, 5 Fr micropuncture set, 8 Fr 10-cm [place] sheath. | | | Catheters: 7.5 Fr VIP [place]-Dante catheter. A full PARQ discussion | | | was held with the patient, and informed consent was obtained. All | | | questions were answered. Subsequently, the patient was brought to | | | the Cardiac Catheterization Laboratory in the fasting state. The | | | patient was prepped and draped in the usual sterile fashion. A team | | | pause was performed to identify the correct patient and procedure. | | | Vascular ultrasound of access site was performed and the right | | | internal jugular vein was noted to be patent. Local anesthesia with | | | 1% lidocaine was used to anesthetize the right neck. Utilizing | | | concurrent realtime ultrasound visualization of the vascular | | | needle entry, right internal jugular vein accessed with a | | | micropuncture needle. Using a 4F micropuncture kit and a modified | | | Seldinger technique, an 8 Faroese 10-cm short sheath was placed in | | | the right internal jugular vein. A 7.5 Fr VIP [place]-Dante catheter was | | | then advanced under fluoroscopic guidanance into the right atrium | | | and right ventricle. At this point we were notified by the echo lab | | | that there was a possible saddle pulmonary embolus, so the catheter | | | was not advanced into the pulmonary artery. No cardiac output | | | measurements were taken. The sheath was removed and hemostasis was | | | obtained with manual pressure. FLUOROSCOPY TIME: 0 minutes | | | FLUOROSCOPY DAP: 1.0 cGy cm2 PATIENT DATA: Height 168 cm | | | Weight 73 kg BSA 1.8 m2 HEART RATE 79 beats per minute | | | RHYTHM: Sinus Blood Pressure 120/80 PRESSURES: RA 7 | | | mmHg RV 65/10 mmHg ULTRASOUND FINDINGS Ultrasound | | | evaluation of the right internal jugular vein revealed the | | | visualized portions of the right internal jugular vein to be patent | | | with no apparent vascular abnormalities. DISPOSITION - Usual post | | | cath care - Follow-up care as directed by the cardiac transplant | | | service. DACIA CALZADA MD [facility] [address] | | | [id number] [place] [address] ATTENDING | | | SURGEON | | | | | | S ATTESTATION: Pursuant to Federal Medicare Requirements, I certify | | | that Martin Banuelos M.D. was present for the entire procedure and | | | participated directly in the generation of this report. MARTIN | | | CINTHIA BANUELOS MD | | + + + FUNDRAISING SPECIALIST EMERGENT/IMMEDIATE PROCEDURE (03/22/2017 9:26 AM PST) + + | Specimen | + + | | + + + + + | Narrative | Performed At | + + + | Procedure | | | performed in the Cardiac Automation Tender. See procedure notes for details. | | + + + TRANSTHORACIC ECHOCARDIOGRAM WITH STRAIN - CARDIO MECHANICS, ADULT (03/22/2017 7:51 AM PST ) + + + + + + | [...] + + + + | LA | 3.0 | | [facility] | | | DIMENSION | | | OF | | | | | | CARDIOLOGY | | + + + + + + | LVIDD | 4.1 | | [facility] | | | | | | OF | | | | | | CARDIOLOGY | | + + + + + + | MV A VMAX | 0.5 | | [facility] | | | | | | OF | | | | | | CARDIOLOGY | | + + + + + + | MV E? | 0.0 | | [facility] | | | | | | OF | | | | | | CARDIOLOGY | | + + + + + + | MV E VMAX | 0.3 | | [facility] | | | | | | OF | | | | | | CARDIOLOGY | | + + + + + + | RVSP | 72 | | [facility] | | | | | | OF | | | | | | CARDIOLOGY | | + + + + + + | RV TAPSE | 1.0 | | [facility] | | | | | | OF | | | | | | CARDIOLOGY | | + + + + + + | RV TDI S? | 8.9 | | [facility] | | | [...] + + | | + + + --------+ + | Narrative | Performed At | + --------+ + | [facility] | [facility] DEPT OF | | [facility] Adult [facility] [address] | CARDIOLOGY | | [place], [place] [address] Ph: | | | Pt Name: GEMA BARRON | | | Study Date/Time 03/22/2017 / 7:51:34 AMMRN: [id number] | | | Most recent prior: 0Acc #: [id number] | | | No. previous echos: 0DOB: 1965 52 years Heart Rate: | | | 79 bpmHeight: 66.0 in Blood | | | Pressure: 120/81 mm/HgWeight: 160.0 lb | | | Gender: FBSA: 1.82 m2 | | | Order ID: [id number] Optimization Analyst: Radha Nunes [facility] [[email or web address]] | | | Referring Provider: Virginie Vogel Location: 11KModalities Performed: | | | 2D, Color flow, Spectral Doppler and Definity contrast.Study Quality: | | | This was a technically difficult study, but image quality improved | | | with echo contrast.Exam Indication: Heart failureHistory: inflammatory | | | bowel disease, reactive airway disease, VWD, prior Meth use presented | | | to an outside hospital with progressive cough, swelling and dyspnia, | | | was initially transferred to [facility] where an echocardiogram | | | showed biventricular systolic failure and cor pulmonale. Patient | | | history has been obtained from the EHR Transthoracic Echocardiographic | | | Report | | | + | | | ---------+Final Impressions: | | | | | | | | | | | | | | | 1. The left ventricular cavity size is normal. | | | 2. The LV function is normal. Visually | | | estimated left ventricular ejection fraction is 60 - 65%. | | | | | | 3. There appears to be a large mobile echodensity located | | | within the main and right pulmonary arteries, suspicious for | | | saddle pulmonary embolus. 4. RV cavity size is severely | | | enlarged. RV global systolic function is moderately | | | reduced. The estimated right ventricular systolic pressure is | | | severely elevated (RVSP = 72.5 mmHg). | | | 5. Moderate tricuspid regurgitation. | | | 6. Severely | | | enlarged right atrium. Left atrium by comparison is likely | | | underfilled. | | | 7. RV findings, pressure, | | | and visualization of the pulmonary arteries are all consistent | | | with pulmonary embolism. Suggest alternative imaging for | | | confirmation. | | | 8. There are no prior exams | | | available for comparison. | | | | | | | | | + | | | + Description of Findings: Cardiac Rhythm: Normal sinus | | | rhythm.Left Ventricle: The left ventricular cavity size is normal. | | | Visually estimated left ventricular ejection fraction is 60 - 65%. The | | | LV function is normal. Abnormal septal motion, with flattening in | | | late systole and throughout diastole. Due to poor endocardial | | | definition, ultrasound contrast was used (Definity).Atria: Left atrial | | | size is normal. Severely enlarged right atrium.Right Ventricle: Right | | | ventricular cavity size is severely enlarged. The RV global systolic | | | function is moderately reduced. TAPSE measures .975cm. The RV TDI s' | | | velocity is 8.95cm/sec.Aortic Valve: The aortic valve is trileaflet | | | and normal in structure and function. No indication of aortic valve | | | regurgitation.Mitral Valve: The mitral valve is structurally normal. | | | No evidence of mitral valve regurgitation.Tricuspid Valve: The | | | triscuspid leaflets appear structurally normal, although there is | | | significant annular dilatation and malcoaptation from right-sided | | | chamber enlargement. Moderate tricuspid regurgitation. The tricuspid | | | regurgitant velocity is 3.79 m/s, and with an assumed right atrial | | | pressure of 15 mmHg, the estimated right ventricular systolic pressure | | | is severely elevated at 72.5 mmHg.Pulmonic Valve: The pulmonic valve | | | is structurally normal. The peak trans pulmonic gradient is 1.2 mmHg. | | | There appears to be a large mobile echodensity located within the main | | | and right pulmonary arteries, suspicious for saddle pulmonary | | | embolus. Suggest further characterization by CTA if not already | | | done.Aorta: Visualized portions of the ascending aorta and aortic root | | | appear normal.Venous: The inferior vena cava was dilated, with | | | respiratory size variation less than 50%.Pericardium: A trivial | | | pericardial effusion is seen. Additional Findings: There are no prior | | | exams.2D Measurements Doppler Measurements | | | 2D NL Values Aortic | | | MitralLVID(d) 4.12 cm (3.5-5.7cm) Max Samy 0.82 m/s Peak | | | E 0.30 m/sLVID(s) 2.70 cm Mean grad | | | 1.0 mmHg Peak A 0.47 m/sIVS(d) 0.84 cm (0.6-1.1cm) | | | LVOT Samy 0.68 m/s E/A Ratio 0.63LVPW(d) 1.10 cm | | | (0.6-1.1cm) TDI (E/e') 9.8LA A/Ps | | | 2D 3.00 cm (2.7-3.9cm) LVOT Diam 2.00 cm MV mn gd | | | Tricuspid | | | Pulmonic TR Vmax | | | 3.79 m/s PV Vmax 0.5 m/s | | | RA Press 15 mmHg RVOT VTI 6.2 cm | | | RVSP 72 mmHg PV mn gd | | | Aorta: | | | Index: | | | Ao Sinus 2.90 cm (2.1-3.5cm) 15.9 mm/m2 | | | Asc Ao (prox) 2.70 cm | | | 14.8 mm/p0Fymkqezptk of chamber size and geometry is | | | accomplished through the incorporation of linear, volumetric, and | | | indexed values Report electronically signed by: [id number] Joshua | | | Eden VAZQUEZ (03/22/2017, 11:20:05 AM)Fellow participating in diagnosis: | | | Jonathon Oliver MD Final | | | Asc Ao (prox) 2.70 cm 14. 8 mm/m2 | | |Evaluation of chamber size and geometry is accomplished through the incorporation of | | |linear, volumetric, and indexed values | | | | | |Report electronically signed by: [id number] Joshua Harmon MD (03/22/2017, 11:20:05 AM) | | |Fellow participating in diagnosis: Jonathon Oliver MD | | | | | | | | | | | | Final | | + --------+ + + + | Procedure Note | + + | Interface, Cardiology Results - 03/22/2017 11:20 AM [facility] [employer] | | [facility] [address] [place] [address] | | [place], [place] [address] Pt Name: GEMA Hollingsworth | | JAKI Study Date/Time 03/22/2017 / 7:51:34 AMMRN: [id number] Most | | recent prior: 0Acc #: [id number] No. previous echos: 0DOB: 1965 | | 52 years Heart Rate: 79 bpmHeight: 66.0 in Blood Pressure: | | 120/81 mm/HgWeight: 160.0 lb Gender: FBSA: 1.82 m2 | | Order ID: [id number] Optimization Analyst: Radha Nunes [facility] [[email or web address]]Referring Provider: | | Virginie Vogel Location: 11KModalities Performed: 2D, Color flow, Spectral Doppler and | | Definity contrast.Study Quality: This was a technically difficult study, but image | | quality improved with echo contrast.Exam Indication: Heart failureHistory: inflammatory | | bowel disease, reactive airway disease, VWD, prior Meth use presented to an outside | | hospital with progressive cough, swelling and dyspnia, was initially transferred to | | [facility] where an echocardiogram showed biventricular systolic failure and cor | | pulmonale. Patient history has been obtained from the EHR Transthoracic | | Echocardiographic | | Report+ +Fi | | nal Impressions: | | | | 1. The left ventricular cavity | | size is normal. 2. The LV function is normal. Visually | | estimated left ventricular ejection fraction is 60 - 65%. | | 3. There appears to be a large mobile echodensity located | | within the main and right pulmonary arteries, suspicious for saddle pulmonary | | embolus. 4. RV cavity size is severely enlarged. RV global systolic function is | | moderately reduced. The estimated right ventricular systolic pressure is | | severely elevated (RVSP = 72.5 mmHg). 5. | | Moderate tricuspid regurgitation. 6. Severely | | enlarged right atrium. Left atrium by comparison is likely underfilled. | | 7. RV findings, pressure, and | | visualization of the pulmonary arteries are all consistent with pulmonary embolism. | | Suggest alternative imaging for confirmation. | | 8. There are no prior exams available for comparison. | | | | + + | | Description of Findings: Cardiac Rhythm: Normal sinus rhythm.Left Ventricle: The left | | ventricular cavity size is normal. Visually estimated left ventricular ejection fraction | | is 60 - 65%. The LV function is normal. Abnormal septal motion, with flattening in late | | systole and throughout diastole. Due to poor endocardial definition, ultrasound | | contrast was used (Definity).Atria: Left atrial size is normal. Severely enlarged right | | atrium.Right Ventricle: Right ventricular cavity size is severely enlarged. The RV | | global systolic function is moderately reduced. TAPSE measures .975cm. The RV TDI s' | | velocity is 8.95cm/sec.Aortic Valve: The aortic valve is trileaflet and normal in | | structure and function. No indication of aortic valve regurgitation.Mitral Valve: The | | mitral valve is structurally normal. No evidence of mitral valve regurgitation.Tricuspid | | Valve: The triscuspid leaflets appear structurally normal, although there is | | significant annular dilatation and malcoaptation from right-sided chamber enlargement. | | Moderate tricuspid regurgitation. The tricuspid regurgitant velocity is 3.79 m/s, and | | with an assumed right atrial pressure of 15 mmHg, the estimated right ventricular | | systolic pressure is severely elevated at 72.5 mmHg.Pulmonic Valve: The pulmonic valve | | is structurally normal. The peak trans pulmonic gradient is 1.2 mmHg. There appears to | | be a large mobile echodensity located within the main and right pulmonary arteries, | | suspicious for saddle pulmonary embolus. Suggest further characterization by CTA if not | | already done.Aorta: Visualized portions of the ascending aorta and aortic root appear | | normal.Venous: The inferior vena cava was dilated, with respiratory size variation less | | than 50%.Pericardium: A trivial pericardial effusion is seen. Additional Findings: There | | are no prior exams.2D Measurements Doppler Measurements 2D | | NL Values Aortic MitralLVID(d) 4.12 cm (3.5-5.7cm) Max Samy | | 0.82 m/s Peak E 0.30 m/sLVID(s) 2.70 cm Mean grad 1.0 mmHg Peak | | A 0.47 m/sIVS(d) 0.84 cm (0.6-1.1cm) LVOT Samy 0.68 m/s E/A Ratio | | 0.63LVPW(d) 1.10 cm (0.6-1.1cm) TDI (E/e') 9.8LA A/Ps 2D 3.00 | | cm (2.7-3.9cm) LVOT Diam 2.00 cm MV mn gd Tricuspid | | Pulmonic TR Vmax 3.79 m/s PV Vmax | | 0.5 m/s RA Press 15 mmHg RVOT VTI 6.2 cm | | RVSP 72 mmHg PV mn gd | | Aorta: Index: Ao Sinus | | 2.90 cm (2.1-3.5cm) 15.9 mm/m2 Asc Ao (prox) 2.70 cm | | 14.8 mm/m1Pqskaikazv of chamber size and geometry is accomplished through the | | incorporation of linear, volumetric, and indexed values Report electronically signed by: | | [id number] Joshua Harmon MD (03/22/2017, 11:20:05 AM)Fellow participating in diagnosis: | | Jonathon Oliver MD Final | |enlargement. Moderate tricuspid regurgitation. The tricuspid regurgitant velocity is | |3.79 m/s, and with an assumed right atrial pressure of 15 mmHg, the estimated right | |ventricular systolic pressure is severely elevated at 72.5 mmHg. | |Pulmonic Valve: The pulmonic valve is structurally normal. The peak trans pulmonic | |gradient is 1.2 mmHg. There appears to be a large mobile echodensity located within | |the main and right pulmonary arteries, suspicious for saddle pulmonary embolus. | |Suggest further characterization by CTA if not already done. | |Aorta: Visualized portions of the ascending aorta and aortic root appear normal. | |Venous: The inferior vena cava was dilated, with respiratory size variation less than | | 50%. | |Pericardium: A trivial pericardial effusion is seen. | | | |Additional Findings: There are no prior exams. | |2D Measurements Doppler Measurements | | | | 2D NL Values Aortic Mitral | |LVID(d) 4.12 cm (3.5-5.7cm) Max Samy 0.82 m/s Peak E 0.30 m/s | |LVID(s) 2.70 cm Mean grad 1.0 mmHg Peak A 0.47 m/s | |IVS(d) 0.84 cm (0.6-1.1cm) LVOT Samy 0.68 m/s E/A Ratio 0.63 | |LVPW(d) 1.10 cm (0.6-1.1cm) TDI (E/e') 9.8 | |LA A/Ps 2D 3.00 cm (2.7-3.9cm) LVOT Diam 2.00 cm MV mn gd | | Tricuspid Pulmonic | | TR Vmax 3.79 m/s PV Vmax 0.5 m/s | | RA Press 15 mmHg RVOT VTI 6.2 cm | | RVSP 72 mmHg PV mn gd | | | | Aorta: Index: | | Ao Sinus 2.90 cm (2.1-3.5cm) 15.9 mm/m2 | | Asc Ao (prox) 2.70 cm 14.8 mm/m2 | |Evaluation of chamber size and geometry is accomplished through the incorporation of | |linear, volumetric, and indexed values | | | |Report electronically signed by: [id number] Joshua Harmon MD (03/22/2017, 11:20:05 AM) | |Fellow participating in diagnosis: Jonathon Oliver MD | | | | | | | | Final | + + + + + + + | Performing | Address | City/State/Zipcode | Phone Number | | Organization | | | | + + + + + | [facility]PT [facility] | [address] | [place], [place] | | | CARDIOLOGY | [address] | [address] | | + + + + + LIVER SET (AST,ALT,BILI TOTAL,BILI DIRECT,ALK PHOS,ALB,PROT TOTAL) (03/22/2017 4:40 AM PST ) + +---------+ + + + | Component | Value | Ref Range | Performed | Pathologist | | | | | At | Signature | + +---------+ + + + | ALBUMIN, | 3.4 (L) | 3.5 - 4.7 g/dL | [facility] | | | PLASMA | | | LABORATORY | | | (LAB) | | | SERVICES, | | | | | | CORE | | + +---------+ + + + | BILIRUBIN | 1.5 (H) | 0.3 - 1.2 mg/dL | [facility] | | | TOTAL | | | LABORATORY | | | | | | SERVICES, | | | | | | CORE | | + +---------+ + + + | BILIRUBIN | 0.6 (H) | 0.0 - 0.3 mg/dL | [facility] | | | DIRECT | | | LABORATORY | | | | | | SERVICES, | | | | | | CORE | | + +---------+ + + + | ALK PHOS | 112 (H) | 42 - 98 U/L | [facility] | | | | | | LABORATORY | | | | | | SERVICES, | | | | | | CORE | | + +---------+ + + + | AST(SGOT) | 63 (H) | <=41 U/L | [facility] | | | | | | LABORATORY | | | | | | SERVICES, | | | | | | CORE | | + +---------+ + + + | ALT (SGPT) | 44 | <=60 U/L | [facility] | | | | | | LABORATORY | | | | | | SERVICES, | | | | | | CORE | | + +---------+ + + + | TOTAL | 8.0 | 6.4 - 8.2 g/dL | [facility] [...] | + + + + + | [facility] | [address] | [place] [address] | | | SERVICES, CORE | [address] | | | + + + + + MAGNESIUM, PLASMA (03/22/2017 4:40 AM PST) + +-------+ + + + | Component | Value | Ref Range | Performed | Pathologist | | | | | At | Signature | + +-------+ + + + | MAGNESIUM,P | 2.1 | 1.6 - 2.6 mg/dL | [facility] | | | LASMA | | | LABORATORY | | | | | | SERVICES, | | | | | | CORE | | + +-------+ + + + + + | Specimen | + + | Blood - Blood | | (substance) | + + + + + | Narrative | Performed At | + + + | Reference range change effective 09/22/16. | [facility] | | | LABORATORY | | | [place] | + + + + + + + + | Performing | Address | City/State/Zipcode | Phone Number | | Organization | | | | + + + + + | [facility] | [address] | [place] [address] | | | [place] | [address] | | | + + + + + BASIC METABOLIC SET (NA, K, CL, TCO2, BUN, CR, GLU, CA) (03/22/2017 4:40 AM PST) + +---------+ + + + [...] + + + | BUN, PLASMA | 27 (H) | 6 - 20 mg/dL | [facility] | | | (LAB) | | | LABORATORY | | | | | | SERVICES, | | | | | | CORE | | + +---------+ + + + | CREATININE | 1.02 | 0.60 - 1.10 | [facility] | | | PLASMA | | mg/dL | LABORATORY | | | (LAB) | | | SERVICES, | | | | | | CORE | | + +---------+ + + + | EGFR | >60 | >60 mL/min | [facility] | | | - | | | LABORATORY | | | NEPALESE | | | SERVICES, | | | | | | CORE | | + +---------+ + + + | EGFR NON | 57 (L) | >60 mL/min | [facility] | | | -BRY | | | LABORATORY | | | RICAN | | | SERVICES, | | | | | | CORE | | + +---------+ + + + | SODIUM, | 135 (L) | 136 - 145 | [facility] | [...] +---------+ + + + | CHLORIDE, | 102 | 97 - 108 mmol/L | [facility] | | | PLASMA | | | LABORATORY | | | (LAB) | | | SERVICES, | | | | | | CORE | | + +---------+ + + + | TOTAL CO2, | 23 | 21 - 32 mmol/L | [facility] | | | PLASMA | | | LABORATORY | | | (LAB) | | | SERVICES, | | | | | | CORE | | + +---------+ + + + | CALCIUM, | 9.0 | 8.6 - 10.2 | [facility] | | | PLASMA | | mg/dL | LABORATORY | | | (LAB) | | | SERVICES, | | | | | | CORE | | + +---------+ + + + | ANION GAP | 10 | 4 - 11 mmol/L | [facility] [...] | Adult glucose reference range change effective 08-19-. GFR is | [facility] | | estimated [...] | + + + + + | [facility] | [address] | [place] [address] | | | SERVICES, RAN | [address] | | | + + + + + CARDIOLOGY (03/22/2017 12:00 AM PST) + + + | Narrative | Performed At | + + + | | | + + + CARDIOLOGY (03/22/2017 12:00 AM PST) + + + | Narrative | Performed At | + + + | | | + + + MAGNESIUM, PLASMA (03/21/2017 4:37 AM PST) + +-------+ + + + | Component | Value | Ref Range | Performed | Pathologist | | | | | At | Signature | + +-------+ + + + | MAGNESIUM,P | 2.0 | 1.6 - 2.6 mg/dL | [facility] | | | LASMA | | | LABORATORY | | | | | | SERVICES, | | | | | | CORE | | + +-------+ + + + + + | Specimen | + + | Blood - Blood | | (substance) | + + + + + | Narrative | Performed At | + + + | Reference range change effective 09/22/16. | [facility] | | | LABORATORY | | | SERVICES, RAN | + + + + + + + + | Performing | Address | City/State/Zipcode | Phone Number | | Organization | | | | + + + + + | [facility] | [address] | [place] [address] | | | SERVICES, RAN | [address] | | | + + + + + BASIC METABOLIC SET (NA, K, CL, TCO2, BUN, CR, GLU, CA) (03/21/2017 4:37 AM PST) + +---------+ + + + | Component | Value | Ref Range | Performed | Pathologist | | | | | At | Signature | + +---------+ + + + | GLUCOSE, | 105 (H) | 70 - 99 mg/dL | [facility] | | | PLASMA | | | LABORATORY | | | (LAB) | | | SERVICES, | | | | | | CORE | | + +---------+ + + + | BUN, PLASMA | 24 (H) | 6 - 20 mg/dL | [facility] | | | (LAB) | | | LABORATORY | | | | | | SERVICES, | | | | | | CORE | | + +---------+ + + + | CREATININE | 1.05 | 0.60 - 1.10 | [facility] | | | PLASMA | | mg/dL | LABORATORY | | | (LAB) | | | SERVICES, | | | | | | CORE | | + +---------+ + + + | EGFR | >60 | >60 mL/min | [facility] | | | - | | | LABORATORY | | | NEPALESE | | | SERVICES, | | | | | | CORE | | + +---------+ + + + | EGFR NON | 55 (L) | >60 mL/min | [facility] | | | -BRY | | | LABORATORY | | | RICAN | | | SERVICES, | | | | | | CORE | | + +---------+ + + + | SODIUM, | 135 (L) | 136 - 145 | [facility] | | | PLASMA | | mmol/L | LABORATORY | | | (LAB) | | | SERVICES, | | | | | | CORE | | + +---------+ + + + | POTASSIUM, | 4.8 | 3.4 - 5.0 | [facility] | | | PLASMA | | mmol/L | LABORATORY | | | (LAB) | | | SERVICES, | | | | | | CORE | | + +---------+ + + + | CHLORIDE, | 101 | 97 - 108 mmol/L | [facility] | | | PLASMA | | | LABORATORY | | | (LAB) | | | SERVICES, | | | | | | CORE | | + +---------+ + + + | TOTAL CO2, | 24 | 21 - 32 mmol/L | [facility] [...] + + + | ANION GAP | 10 | 4 - 11 mmol/L | [facility] [...] | + + + + + | [facility] | [address] | [place] [address] | | | SERVICES, CORE | [address] | | | + + + + + CARDIOLOGY (03/21/2017 12:00 AM PST) + + + | Narrative | Performed At | + + + | | | + + + CARDIOLOGY (03/21/2017 12:00 AM PST) + + + | Narrative | Performed At | + + + | | | + + + MAGNESIUM, PLASMA (03/20/2017 3:59 AM PST) + +-------+ + + + | Component | Value | Ref Range | Performed | Pathologist | | | | | At | Signature | + +-------+ + + + | MAGNESIUM,P | 2.1 | 1.6 - 2.6 mg/dL | [facility] | | | LASMA | | | LABORATORY | | | | | | SERVICES, | | | | | | CORE | | + +-------+ + + + + + | Specimen | + + | Blood - Blood | | (substance) | + + + + + | Narrative | Performed At | + + + | Reference range change effective 09/22/16. | [facility] | | | LABORATORY | | | SERVICES, CORE | + + + + + + + + | Performing | Address | City/State/Zipcode | Phone Number | | Organization | | | | + + + + + | [facility] | [address] | [place] [address] | | | SERVICES, CORE | [address] | | | + + + + + BASIC METABOLIC SET (NA, K, CL, TCO2, BUN, CR, GLU, CA) (03/20/2017 3:59 AM PST) + + + + + + | Component | Value | Ref Range | Performed | Pathologist | | | | | At | Signature | + + + + + + | GLUCOSE, | 104 (H) | 70 - 99 mg/dL | [facility] | | | PLASMA | | | LABORATORY | | | (LAB) | | | SERVICES, | | | | | | CORE | | + + + + + + | BUN, PLASMA | 23 (H) | 6 - 20 mg/dL | [facility] | | | (LAB) | | | LABORATORY | | | | | | SERVICES, | | | | | | CORE | | + + + + + + | CREATININE | 1.17 (H) | 0.60 - 1.10 | [facility] | | | PLASMA | | mg/dL | LABORATORY | | | (LAB) | | | SERVICES, | | | | | | CORE | | + + + + + + | EGFR | 59 (L) | >60 mL/min | [facility] | | | - | | | LABORATORY | | | NEPALESE | | | SERVICES, | | | | | | CORE | | + + + + + + | EGFR NON | 48 (L) | >60 mL/min | [facility] | | | -BRY | | | LABORATORY | | | RICAN | | | SERVICES, | | | | | | CORE | | + + + + + + | SODIUM, | 137 | 136 - 145 | [facility] | | | PLASMA | | mmol/L | LABORATORY | | | (LAB) | | | SERVICES, | | | | | | CORE | | + + + + + + | POTASSIUM, | 4.7 | 3.4 - 5.0 | [facility] | | | PLASMA | | mmol/L | LABORATORY | | | (LAB) | | | SERVICES, | | | | | | CORE | | + + + + + + | CHLORIDE, | 100 | 97 - 108 mmol/L | [facility] | | | PLASMA | | | LABORATORY | | | (LAB) | | | SERVICES, | | | | | | CORE | | + + + + + + | TOTAL CO2, | 28 | 21 - 32 mmol/L | [facility] | | | PLASMA | | | LABORATORY | | | (LAB) | | | SERVICES, | | | | | | CORE | | + + + + + + | CALCIUM, | 8.8 | 8.6 - 10.2 | [facility] | | | PLASMA | | mg/dL | LABORATORY | | | (LAB) | | | SERVICES, | | | | | | CORE | | + + + + + + | ANION GAP | 9 | 4 - 11 mmol/L | [facility] | | | | | | LABORATORY | | | | | | SERVICES, | | | | | | CORE | | + + + + + + | POTASSIUM | No [...] | + + + + + | [facility] | [address] | [place] [address] | | | SERVICES, RAN | [address] | | | + + + + + CARDIOLOGY (03/20/2017 12:00 AM PST) + + + | Narrative | Performed At | + + + | | | + + + CARDIOLOGY (03/20/2017 12:00 AM PST) + + + | Narrative | Performed At | + + + | | | + + + POTASSIUM, PLASMA (03/19/2017 1:46 PM PST) + +---------+ + + + | Component | Value | Ref Range | Performed | Pathologist | | | | | At | Signature | + +---------+ + + + | POTASSIUM, | 4.1 | 3.4 - 5.0 | [facility] | [...] | + + + + + | [facility] | [address] | [place] [address] | | | SERVICES, CORE | [address] | | | + + + + + BASIC METABOLIC SET (NA, K, CL, TCO2, BUN, CR, GLU, CA) (03/19/2017 4:11 AM PST) + + + + + + | Component | Value | Ref Range | Performed | Pathologist | | | | | At | Signature | + + + + + + | GLUCOSE, | 105 (H) | 70 - 99 mg/dL | [facility] | | | PLASMA | | | LABORATORY | | | (LAB) | | | SERVICES, | | | | | | CORE | | + + + + + + | BUN, PLASMA | 25 (H) | 6 - 20 mg/dL | [facility] | | | (LAB) | | | LABORATORY | | | | | | SERVICES, | | | | | | CORE | | + + + + + + | CREATININE | 1.15 (H) | 0.60 - 1.10 | [facility] | | | PLASMA | | mg/dL | LABORATORY | | | (LAB) | | | SERVICES, | | | | | | CORE | | + + + + + + | EGFR | 60 (L) | >60 mL/min | [facility] | | | - | | | LABORATORY | | | NEPALESE | | | SERVICES, | | | | | | CORE | | + + + + + + | EGFR NON | 49 (L) | >60 mL/min | [facility] | | | -BRY | | | LABORATORY | | | RICAN | | | SERVICES, | | | | | | CORE | | + + + + + + | SODIUM, | 137 | 136 - 145 | [facility] | | | PLASMA | | mmol/L | LABORATORY | | | (LAB) | | | SERVICES, | | | | | | CORE | | + + + + + + | POTASSIUM, | 4.9 | 3.4 - 5.0 | [facility] | | | PLASMA | | mmol/L | LABORATORY | | | (LAB) | | | SERVICES, | | | | | | CORE | | + + + + + + | CHLORIDE, | 101 | 97 - 108 mmol/L | [facility] | | | PLASMA | | | LABORATORY | | | (LAB) | | | SERVICES, | | | | | | CORE | | + + + + + + | TOTAL CO2, | 30 | 21 - 32 mmol/L | [facility] | | | PLASMA | | | LABORATORY | | | (LAB) | | | SERVICES, | | | | | | CORE | | + + + + + + | CALCIUM, | 8.5 (L) | 8.6 - 10.2 | [facility] | | | PLASMA | | mg/dL | LABORATORY | | | (LAB) | | | SERVICES, | | | | | | CORE | | + + + + + + | ANION GAP | 6 | 4 - 11 mmol/L | [facility] | | | | | | LABORATORY | | | | | | SERVICES, | | | | | | CORE | | + + + + + + | POTASSIUM | No [...] | + + + + + | [facility] | [address] | [place] [address] | | | SERVICES, CORE | [address] | | | + + + + + CARDIOLOGY (03/19/2017 12:00 AM PST) + + + | Narrative | Performed At | + + + | | | + + + CARDIOLOGY (03/19/2017 12:00 AM PST) + + + | Narrative | Performed At | + + + | | | + + + MAGNESIUM, PLASMA (03/18/2017 4:53 PM PST) + +-------+ + + + | Component | Value | Ref Range | Performed | Pathologist | | | | | At | Signature | + +-------+ + + + | MAGNESIUM,P | 1.8 | 1.6 - 2.6 mg/dL | [facility] | | | LASMA | | | LABORATORY | | | | | | SERVICES, | | | | | | CORE | | + +-------+ + + + + + | Specimen | + + | Blood - Blood | | (substance) | + + + + + | Narrative | Performed At | + + + | Reference range change effective 09/22/16. | [facility] | | | LABORATORY | | | SERVICES, CORE | + + + + + + + + | Performing | Address | City/State/Zipcode | Phone Number | | Organization | | | | + + + + + | [facility] | [address] | [place] [address] | | | SERVICES, CORE | [address] | | | + + + + + POTASSIUM, PLASMA (03/18/2017 4:53 PM PST) + +---------+ + + + | Component | Value | Ref Range | Performed | Pathologist | | | | | At | Signature | + +---------+ + + + | POTASSIUM, | 3.4 | 3.4 - 5.0 | [facility] | [...] | + + + + + | [facility] | [address] | [place] [address] | | | SERVICES, CORE | [address] | | | + + + + + [facility] SPECIALIST HF/TX CAR RHC (RIJ) (03/18/2017 9:38 AM PST) + + | Specimen | + + | | + + + + + | Narrative | Performed At | + + + | Procedure | | | performed in the [facility]. See procedure notes for details. | | + + + X-RAY CHEST 1 VIEW (03/18/2017 8:53 AM PST) + + | Specimen | + + | | + + + + + | Narrative | Performed At | + + + | EXAM: CHEST 1 VIEW HISTORY: Shortness of breath COMPARISON: | [facility] | | Outside chest radiograph and CT 03/12/17 FINDINGS: Cardiomegaly | RADIOLOGY VOICE | | unchanged. Mediastinal contours are stable. There is no pulmonary | RECOGNITION | | edema. The lungs are clear. No definite pleural effusion. There | | | is no pneumothorax. IMPRESSION: Clear lungs. Unchanged | | | cardiomegaly. I have personally reviewed the images and, if | | | necessary, edited the report. I agree with the report as now | | | presented. | | + + + + + | Procedure Note | + + | Service Account, Radiant Res In Interface - 03/18/2017 9:36 AM PST EXAM: CHEST 1 | | VIEW HISTORY: Shortness of breathCOMPARISON: Outside chest radiograph and CT | | 03/12/17INDINGS: Cardiomegaly unchanged. Mediastinal contours are stable. There is no | | pulmonary edema. The lungs are clear. No definite pleural effusion. There is no | | pneumothorax.IMPRESSION: Clear lungs.Unchanged cardiomegaly.I have personally reviewed | | the images and, if necessary, edited the report. I agree with the report as now | | presented. | | | |Cardiomegaly unchanged. Mediastinal contours are stable. There is no pulmonary edema. Th e lungs are clear. No definite pleural effusion. There is no pneumothorax. | | | |IMPRESSION: | | | |Clear lungs. | | | |Unchanged cardiomegaly. | | | | | |I have personally reviewed the images and, if necessary, edited the report. I agree with t he report as now presented. | + + + +---------+ + + | Performing | Address | City/State/Zipcode | Phone Number | | Organization | | | | + +---------+ + + | [facility] | | | | | VOICE RECOGNITION | | | | + +---------+ + + NT-PRO BNP (03/18/2017 5:03 AM PST) + + + + + + | Component | Value | Ref Range | Performed | Pathologist | | | | | At | Signature | + + + + + + | NT-PRO BNP | 2,135 (H) | <125 pg/mL | [facility] | [...] | + + + + + | [facility] | [address] | [place] [address] | | | SERVICES, CORE | [address] | | | + + + + + HEPATITIS A AB SCREEN, SERUM (03/18/2017 5:03 AM PST) + + + + + + | Component | Value | Ref Range | Performed | Pathologist | | | | | At | Signature | + + + + + + | HEPATITIS A | Negative | Negative | [facility] | | AB TOTAL | | | [facility] | | | | | | [place] | | + + + + + + + + | Specimen | + + | Blood - Blood | | (substance) | + + + + + + + | Performing | Address | City/State/Zipcode | Phone Number | | Organization | | | | + + + + + | [facility] | [address] | [place] [address] | | | [place] | | | | + + + + + BASIC METABOLIC SET (NA, K, CL, TCO2, BUN, CR, GLU, CA) (03/18/2017 5:03 AM PST) + +---------+ + + + | Component | Value | Ref Range | Performed | Pathologist | | | | | At | Signature | + +---------+ + + + | GLUCOSE, | 88 | 70 - 99 mg/dL | [facility] | | | PLASMA | | | LABORATORY | | | (LAB) | | | SERVICES, | | | | | | CORE | | + +---------+ + + + | BUN, PLASMA | 22 (H) | 6 - 20 mg/dL | [facility] | | | (LAB) | | | LABORATORY | | | | | | SERVICES, | | | | | | CORE | | + +---------+ + + + | CREATININE | 0.99 | 0.60 - 1.10 | [facility] | | | PLASMA | | mg/dL | LABORATORY | | | (LAB) | | | SERVICES, | | | | | | CORE | | + +---------+ + + + | EGFR | >60 | >60 mL/min | [facility] | | | - | | | LABORATORY | | | NEPALESE | | | SERVICES, | | | [...] +---------+ + + + | CHLORIDE, | 102 | 97 - 108 mmol/L | [facility] | | | PLASMA | | | LABORATORY | | | (LAB) | | | SERVICES, | | | | | | CORE | | + +---------+ + + + | TOTAL CO2, | 29 | 21 - 32 mmol/L | [facility] | | | PLASMA | | | LABORATORY | | | (LAB) | | | SERVICES, | | | | | | CORE | | + +---------+ + + + | CALCIUM, | 8.2 (L) | 8.6 - 10.2 | [facility] | | | PLASMA | | mg/dL | LABORATORY | | | (LAB) | | | SERVICES, | | | | | | CORE | | + +---------+ + + + | ANION GAP | 7 | 4 - 11 mmol/L | [facility] [...] | Adult glucose reference range change effective 08-19-. GFR is | [facility] | | estimated [...] | + + + + + | [facility] | [address] | [place] [address] | | | SERVICES, RAN | [address] | | | + + + + + CBC (HEMOGRAM) ONLY (03/18/2017 5:02 AM PST) + + + + + + | Component | Value | Ref Range | Performed | Pathologist | | | | | At | Signature | + + + + + + | WHITE CELL | 5.46 | 3.50 - 10.80 | [facility] | | | COUNT | | K/cu mm | LABORATORY | | | | | | SERVICES, | | | | | | CORE | | + + + + + + | RED CELL | 4.57 | 4.00 - 5.20 | [facility] | | | COUNT | | M/cu mm | LABORATORY | | | | | | SERVICES, | | | | | | CORE | | + + + + + + | HEMOGLOBIN | 14.8 | 12.0 - 16.0 | [facility] | | | | | g/dL | LABORATORY | | | | | | SERVICES, | | | | | | CORE | | + + + + + + | HEMATOCRIT | 44.4 | 36.0 - 46.0 % | [facility] | | | | | | LABORATORY | | | | | | SERVICES, | | | | | | CORE | | + + + + + + | MCV | 97.2 (H) | 80.0 - 96.0 fL | [facility] | | | | | | LABORATORY | | | | | | SERVICES, | | | | | | CORE | | + + + + + + | MCHC | 33.3 | 33.0 - 35.5 | [facility] | | | | | g/dL | LABORATORY | | | | | | SERVICES, | | | | | | CORE | | + + + + + + | RDW SD | 54.1 (H) | 35.1 - 46.3 fL | [facility] | | | | | | LABORATORY | | | | | | SERVICES, | | | | | | CORE | | + + + + + + | PLATELET | 176 | 150 - 400 K/cu | [facility] | | | COUNT | | mm | LABORATORY | | | | | | SERVICES, | | | | | | CORE | | + + + + + + | MPV | 10.7 | 9.7 - 12.3 fL | [facility] [...] | + + + + + | [facility] | [address] | [place] [address] | | | SERVICES, CORE | [address] | | | + + + + + HEP C AB; W/CONFIRMATION BY QUANTITATIVE PCR (03/18/2017 5:02 AM PST) + + + + + + | Component | Value | Ref Range | Performed | Pathologist | | | | | At | Signature | + + + + + + | HEP C AB | Not Detected | Not Detected | [facility] | | | | | [...] | + + + + + | [facility] | [address] | [place] [address] | | | SERVICES, CORE | [address] | | | + + + + + HEPATITIS B CORE AB, SERUM (03/18/2017 5:02 AM PST) + + + + + + | Component | Value | Ref Range | Performed | Pathologist | | | | | At | Signature | + + + + + + | HEP B CORE | Not Detected | Not Detected | [facility] | | | AB | | | LABORATORY | | | [...] + | [facility] | [address] | [place] [address] | | | SERVICES, CORE | [address] | | | + + + + + HEPATITIS B SURFACE AG W/REFLEX CONFIRMATION IF INDETERMINATE RESULTS (03/18/2017 5:02 AM PST) + + + + + + | Component | Value | Ref Range | Performed | Pathologist | | | | | At | Signature | + + + + + + | HEPATITIS B | | | [facility] | | | SURFACE | | | LABORATORY | | | AG, SERUM | | | SERVICES, | | | | | | CORE | | + + + + + + | HEP B | Not Detected | Not Detected | [facility] | | | SURFACE AG | | | LABORATORY | | | [...] | + + + + + | [facility] | [address] | [place] [address] | | | SERVICES, CORE | [address] | | | + + + + + HIV-1,2 AB/HIV-1 P24 AG SCRN (03/18/2017 5:02 AM PST) + + + + + + | Component | Value | Ref Range | Performed | Pathologist | | | | | At | Signature | + + + + + + | HIV-1,2 | Negative | Negative | [facility] | | | AB/HIV-1 | | | LABORATORY | | | P24 AG | | | SERVICES, | | | SCREEN | | | SPECIAL IMM | | | | | | + COAG | | + + + + + + + + | Specimen | + + | Blood - Blood | | (substance) | + + + + + | Narrative | Performed At | + + + | HIV-1 p24 Ag and HIV-1,2 Ab not detected. Test modified from | [facility] | | original milk inspector's approved specifications. The performance | LABORATORY | | of the HOUSE ADMIN HIV Combo test, with or without confirmation, was not | SERVICES, | | tested in pediatric patients less than 2 years of age. [facility] | SPECIAL IMM + | | guidelines recommend virologic assays (i.e. HIV 1 VIRAL LOAD) that | [place] | | directly detect HIV for diagnosis of HIV infection in infants younger | | | than 2 years. | | + + + + + + + + | Performing | Address | City/State/Zipcode | Phone Number | | Organization | | | | + + + + + | [facility] | [address] | [place] [address] | | | SERVICES, SPECIAL | [address] | | | | IMM + [place] | | | | + + + + + CARDIOLOGY (03/18/2017 12:00 AM PST) + + + | Narrative | Performed At | + + + | | | + + + CARDIOLOGY (03/18/2017 12:00 AM PST) + + + | Narrative | Performed At | + + + | | | + + + CARDIOLOGY (03/18/2017 12:00 AM PST) + + + | Narrative | Performed At | + + + | | | + + + DRUG SCREEN,URINE;W/INGRID (03/17/2017 5:27 PM PST) + + + + + [...] + + + + | OPIATE | 470 (H) | <300 ng/mL | [facility] | | | CONC, URINE | | | LABORATORY | | | | | | SERVICES, | | | | | | CORE | | + + + + + + | AMPHETAMINE | Negative | | [facility] | | | , URINE [...] + + + + | OPIATES, | Positive (A)Comment: Not | Negative | [facility] | | | URINE | confirmed. | | LABORATORY | | | | [...] + + | OXYCODONE, | Negative | Negative | [facility] | [...] drug concentration yielding a positive urine drug screen. | [facility] | | Amphetamines >=1000 ng/mL Barbiturates | LABORATORY | | >=200 ng/mL Benzodiazepine | SERVICES, CORE | | >=200 ng/mL Cocaine >=300 ng/mL | | | Methadone >=300 ng/mL Opiates | | | >=300 ng/mL Oxycodone | | | >=100 ng/mL THC - Cannabinoid >=50 ng/mL | | | Screening results are not confirmed by alternate method unless | | | requested. Results are to be used for medical (i.e. treatment) | | | purposes only. The reported result is an estimated concentration of | | | drug that can be detected by the method of analysis. Amphetamine | | | Note: Benzphetamine and Selegiline may produce positive results with | | | this assay. Opiates Notes: Therapeutic doses of Ofloxcin (Floxin) or | | | Levofloxacin (Levaquin) may produce positive results with this assay. | | + + + + + + + + | Performing | Address | City/State/Zipcode | Phone Number | | Organization | | | | + + + + + | [facility] | [address] | [place] [address] | | | SERVICES, RAN | [address] | | | + + + + + MAGNESIUM, PLASMA (03/17/2017 10:50 AM PST) + +-------+ + + + | Component | Value | Ref Range | Performed | Pathologist | | | | | At | Signature | + +-------+ + + + | MAGNESIUM,P | 1.9 | 1.6 - 2.6 mg/dL | [facility] | | | LASMA | | | LABORATORY | | | | | | SERVICES, | | | | | | CORE | | + +-------+ + + + + + | Specimen | + + | Blood - Blood | | (substance) | + + + + + | Narrative | Performed At | + + + | Reference range change effective 09/22/16. | [facility] | | | LABORATORY | | | SERVICES, CORE | + + + + + + + + | Performing | Address | City/State/Zipcode | Phone Number | | Organization | | | | + + + + + | [facility] | [address] | [place] [address] | | | SERVICES, CORE | [address] | | | + + + + + BASIC METABOLIC SET (NA, K, CL, TCO2, BUN, CR, GLU, CA) (03/17/2017 10:50 AM PST) + + + + + + | Component | Value | Ref Range | Performed | Pathologist | | | | | At | Signature | + + + + + + | GLUCOSE, | 137 (H) | 70 - 99 mg/dL | [facility] | | | PLASMA | | | LABORATORY | | | (LAB) | | | SERVICES, | | | | | | CORE | | + + + + + + | BUN, PLASMA | 18 | 6 - 20 mg/dL | [facility] | | | (LAB) | | | LABORATORY | | | | | | SERVICES, | | | | | | CORE | | + + + + + + | CREATININE | 1.15 (H) | 0.60 - 1.10 | [facility] | | | PLASMA | | mg/dL | LABORATORY | | | (LAB) | | | SERVICES, | | | | | | CORE | | + + + + + + | EGFR | 60 (L) | >60 mL/min | [facility] | | | - | | | LABORATORY | | | NEPALESE | | | SERVICES, | | | | | | CORE | | + + + + + + | EGFR NON | 49 (L) | >60 mL/min | [facility] | | | -BRY | | | LABORATORY | | | RICAN | | | SERVICES, | | | | | | CORE | | + + + + + + | SODIUM, | 139 | 136 - 145 | [facility] | | | PLASMA | | mmol/L | LABORATORY | | | (LAB) | | | SERVICES, | | | | | | CORE | | + + + + + + | POTASSIUM, | 3.7 | 3.4 - 5.0 | [facility] | | | PLASMA | | mmol/L | LABORATORY | | | (LAB) | | | SERVICES, | | | | | | CORE | | + + + + + + | CHLORIDE, | 101 | 97 - 108 mmol/L | [facility] | | | PLASMA | | | LABORATORY | | | (LAB) | | | SERVICES, | | | | | | CORE | | + + + + + + | TOTAL CO2, | 33 (H) | 21 - 32 mmol/L | [facility] | | | PLASMA | | | LABORATORY | | | (LAB) | | | SERVICES, | | | | | | CORE | | + + + + + + | CALCIUM, | 8.9 | 8.6 - 10.2 | [facility] | | | PLASMA | | mg/dL | LABORATORY | | | (LAB) | | | SERVICES, | | | | | | CORE | | + + + + + + | ANION GAP | 5 | 4 - 11 mmol/L | [facility] | | | | | | LABORATORY | | | | | | SERVICES, | | | | | | CORE | | + + + + + + | POTASSIUM | No [...] | + + + + + | [facility] | [address] | [place] [address] | | | SERVICES, CORE | [address] | | | + + + + + 12 LEAD ECG (03/17/2017 2:05 AM PST) + + + + + + | Component | Value | Ref Range | Performed | Pathologist | | | | | At | Signature | + + + + + + | VENTRICULAR | 74 | bpm | [facility] | | | RATE | | | OF | | | | | | CARDIOLOGY | | + + + + + + | ATRIAL RATE | 75 | ms | [facility] | | | | | | OF | | | | | | CARDIOLOGY | | + + + + + + | P-R | 141 | ms | [facility] | | | INTERVAL | | | OF | | | | | | CARDIOLOGY | | + + + + + + | P AXIS | 72 | deg | [facility] | | | | | | OF | | | | | | CARDIOLOGY | | + + + + + + | QRS | 104 | ms | [facility] | | | DURATION | | | OF | | | | | | CARDIOLOGY | | + + + + + + | QT | 396 | ms | [facility] | | | | | | OF | | | | | | CARDIOLOGY | | + + + + + + | DAILY-JAYDON | 441 | ms | [facility] | | | | | | OF | | | | | | CARDIOLOGY | | + + + + + + | R AXIS | 0 | deg | [facility] | | | | | | OF | | | | | | CARDIOLOGY | | + + + + + + | T AXIS | 87 | deg | [facility] | | | | | | OF | | | | | | CARDIOLOGY | | + + + + + + | ECG | Sinus rhythm | | [facility] | | | IMPRESSION | | | OF | | | | | | CARDIOLOGY | | + + + + + + | ECG | Probable right | | [facility] | | | IMPRESSION | ventricular hypertrophy | | OF | | | | | | CARDIOLOGY | | + + + + + + | ECG | Consider Anteroseptal | | [facility] | | | IMPRESSION | infarct, old | | OF | | | | [...] DEPT | | | IMPRESSION | by: DEEDEE MURRIETA | | OF | | | | 03-18-2017 10:04:12 | | CARDIOLOGY | | + + [...] DEPT OF | [address] | [place], [place] | | | CARDIOLOGY | [address] | [address] | | + + + + + CBC (HEMOGRAM) ONLY (03/17/2017 1:10 AM PST) + + + + + + | Component | Value | Ref Range | Performed | Pathologist | | | | | At | Signature | + + + + + + | WHITE CELL | 6.20 | 3.50 - 10.80 | [facility] | | | COUNT | | K/cu mm | LABORATORY | | | | | | SERVICES, | | | | | | CORE | | + + + + + + | RED CELL | 4.78 | 4.00 - 5.20 | [facility] | | | COUNT | | M/cu mm | LABORATORY | | | | | | SERVICES, | | | | | | CORE | | + + + + + + | HEMOGLOBIN | 15.4 | 12.0 - 16.0 | [facility] | | | | | g/dL | LABORATORY | | | | | | SERVICES, | | | | | | CORE | | + + + + + + | HEMATOCRIT | 47.5 (H) | 36.0 - 46.0 % | [facility] | | | | | | LABORATORY | | | | | | SERVICES, | | | | | | CORE | | + + + + + + | MCV | 99.4 (H) | 80.0 - 96.0 fL | [facility] | | | | | | LABORATORY | | | | | | SERVICES, | | | | | | CORE | | + + + + + + | MCHC | 32.4 | 33.0 - 35.5 | [facility] | | | | | g/dL | LABORATORY | | | | | | SERVICES, | | | | | | CORE | | + + + + + + | RDW SD | 56.3 (H) | 35.1 - 46.3 fL | [facility] | | | | | | LABORATORY | | | | | | SERVICES, | | | | | | CORE | | + + + + + + | PLATELET | 189 | 150 - 400 K/cu | [facility] | | | COUNT | | mm | LABORATORY | | | | | | SERVICES, | | | | | | CORE | | + + + + + + | MPV | 10.7 | 9.7 - 12.3 fL | [facility] [...] + + | [facility] | [address] | [place] [address] | | | SERVICES, CORE | [address] | | | + + + + + COMPLETE METABOLIC SET (NA,K,CL,CO2,BUN,CREAT,GLUC,CA,AST,ALT,BILI TOTAL,ALK PHOS,ALB,PROT TOTAL) (03/17/2017 1:10 AM PST) + + + + + + | Component | Value | Ref Range | Performed | Pathologist | | | | | At | Signature | + + + + + + | GLUCOSE, | 95 | 70 - 99 mg/dL | [facility] | | | PLASMA | | | LABORATORY | | | (LAB) | | | SERVICES, | | | | | | CORE | | + + + + + + | BUN, PLASMA | 21 (H) | 6 - 20 mg/dL | [facility] | | | (LAB) | | | LABORATORY | | | | | | SERVICES, | | | | | | CORE | | + + + + + + | CREATININE | 1.15 (H) | 0.60 - 1.10 | [facility] | | | PLASMA | | mg/dL | LABORATORY | | | (LAB) | | | SERVICES, | | | | | | CORE | | + + + + + + | EGFR | 60 (L) | >60 mL/min | [facility] | | | - | | | LABORATORY | | | NEPALESE | | | SERVICES, | | | | | | CORE | | + + + + + + | EGFR NON | 49 (L) | >60 mL/min | [facility] | | | -BRY | | | LABORATORY | | | RICAN | | | SERVICES, | | | | | | CORE | | + + + + + + | SODIUM, | 140 | 136 - 145 | [facility] | | | PLASMA | | mmol/L | LABORATORY | | | (LAB) | | | SERVICES, | | | | | | CORE | | + + + + + + | POTASSIUM, | 4.5 | 3.4 - 5.0 | [facility] | | | PLASMA | | mmol/L | LABORATORY | | | (LAB) | | | SERVICES, | | | | | | CORE | | + + + + + + | CHLORIDE, | 103 | 97 - 108 mmol/L | [facility] | | | PLASMA | | | LABORATORY | | | (LAB) | | | SERVICES, | | | | | | CORE | | + + + + + + | TOTAL CO2, | 32 | 21 - 32 mmol/L | [facility] | | | PLASMA | | | LABORATORY | | | (LAB) | | | SERVICES, | | | | | | CORE | | + + + + + + | CALCIUM, | 8.4 (L) | 8.6 - 10.2 | [facility] | | | PLASMA | | mg/dL | LABORATORY | | | (LAB) | | | SERVICES, | | | | | | CORE | | + + + + + + | CALCIUM(ALB | 9.1 | 8.6 - 10.2 | [facility] | | | CORRECTED) | | mg/dL | LABORATORY | | | | | | SERVICES, | | | | | | CORE | | + + + + + + | BILIRUBIN | 1.2 | 0.3 - 1.2 mg/dL | [facility] | | | TOTAL | | | LABORATORY | | | | | | SERVICES, | | | | | | CORE | | + + + + + + | TOTAL | 6.9 | 6.4 - 8.2 g/dL | [facility] | | | PROTEIN, | | | LABORATORY | | | PLASMA | | | SERVICES, | | | (LAB) | | | CORE | | + + + + + + | ALBUMIN, | 3.1 (L) | 3.5 - 4.7 g/dL | [facility] | | | PLASMA | | | LABORATORY | | | (LAB) | | | SERVICES, | | | | | | CORE | | + + + + + + | ALK PHOS | 100 (H) | 42 - 98 U/L | [facility] | | | | | | LABORATORY | | | | | | SERVICES, | | | | | | CORE | | + + + + + + | AST(SGOT) | 31 | <=41 U/L | [facility] | | | | | | LABORATORY | | | | | | SERVICES, | | | | | | CORE | | + + + + + + | ALT (SGPT) | 25 | <=60 U/L | [facility] | | | | | | LABORATORY | | | | | | SERVICES, | | | | | | CORE | | + + + + + + | ANION GAP | 5 | 4 - 11 mmol/L | [facility] | | | | | | LABORATORY | | | | | | SERVICES, | | | | | | CORE | | + + + + + + | ANION | 7 | 4 - 11 mmol/L | [facility] | | | GAP(ALB | | | LABORATORY | | | CORRECTED) | | | SERVICES, | | | | | | CORE | | + + + + + + | POTASSIUM | No Hemo | | [facility] | | | CMNT | | | LABORATORY | | | | | | SERVICES, | | | | | | CORE | | + + + + + + | BILI T CMNT | No Hemo | | [facility] | | | | | | LABORATORY | | | | | | SERVICES, | | | | | | CORE | | + + + + + + | AST CMNT | [...] | + + + + + | [facility] | [address] | [place] [address] | | | SERVICES, CORE | [address] | | | + + + + + CARDIOLOGY (03/17/2017 12:00 AM PST) + + + | Narrative | Performed At | + + + | | | + + + CARDIOLOGY (03/17/2017 12:00 AM PST) + + + | Narrative | Performed At | + + + | | | + + + CARDIOLOGY (03/17/2017 12:00 AM PST) + + + | Narrative | Performed At | + + + | | | + + + CARDIOLOGY (03/17/2017 12:00 AM PST) + + + | Narrative | Performed At | + + + | | | + + + documented in this encounter Visit Diagnoses + + | Diagnosis | + + | Pulmonary hypertension (HCC) - Primary Other chronic pulmonary heart diseases | + + | Heart failure, acute, diastolic, first episode (HCC) Acute diastolic heart failure | + + | Acute systolic heart failure (HCC) Acute systolic heart failure | + + | 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) Congestive heart failure, | | unspecified | + + | Inflammatory bowel disease Other and unspecified noninfectious gastroenteritis and | | colitis | + + | Chronic cough Cough | + + | Reactive airway disease Unspecified asthma | + + | ALONDRA (acute kidney injury) (HCC) Acute kidney failure, unspecified | + + | Von Willebrand disease (HCC) Von Willebrand's disease | + + | 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, in remission | + + | Osteoarthritis Osteoarthrosis, unspecified whether generalized or localized, | | unspecified site | + + | Cor pulmonale (HCC) Chronic pulmonary heart disease, unspecified | + + documented in this encounter Administered Medications + +--------+ +--------+------+------+ | Medication Order | MAR | Action | Dose | Rate | Site | | | Action | Date | | | | + +--------+ +--------+------+------+ | acetaminophen (TYLENOL) tablet | Given | 03/26/19 | 325 mg | | | | 325 mg 325 mg, oral, EVERY 4 | | 18 8:43 | | | | | HOURS NEEDED, Starting Mon | | PM PST | | | | | 03/22/17 at 1526, Until Sat | | | | | | | 03/27/17 at 2319, headache | | | | | | + +--------+ +--------+------+------+ +-------+ +--------+---+---+ | Given | 03/26/19 | 325 mg | | | | | 18 8:47 | | | | | | AM PST | | | | +-------+ +--------+---+---+ | Given | 03/25/19 | 325 mg | | | | | 18 9:22 | | | | | | PM PST | | | | +-------+ +--------+---+---+ +---+---+ | | | +---+---+ + +-------+ +---------+---+---+ | albuterol (PROVENTIL, VENTOLIN) | Given | 03/21/19 | 2 puffs | | | | 90 mcg/actuation inhaler 2 puff | | 18 4:38 | | | | | 2 puff, inhalation, EVERY 4 | | PM PST | | | | | HOURS NEEDED, Starting Wed | | | | | | | 03/17/17 at 0223, Until 03/27/17 | | | | | | | at 2319, dyspnea | | | | | | + +-------+ +---------+---+---+ +---+---+ | | | +---+---+ + +-------+ +--------+---+---+ | amoxicillin-clavulanate | Given | 03/27/19 | 875 mg | | | | (AUGMENTIN) 875-125 mg 875 mg | | 18 9:13 | | | | | 875 mg, oral, TWICE DAILY, First | | AM PST | | | | | dose (after last modification) on | | | | | | | 03/22/17 at 0900, Until | | | | | | | Discontinued | | | | | | + +-------+ +--------+---+---+ +-------+ +--------+---+---+ | Given | 03/26/19 | 875 mg | | | | | 18 10:15 | | | | | | PM PST | | | | +-------+ +--------+---+---+ | Given | 03/26/19 | 875 mg | | | | | 18 8:47 | | | | | | AM PST | | | | +-------+ +--------+---+---+ +---+---+ | | | +---+---+ + +-------+ +-------+---+---+ | dextromethorphan-guaiFENesin | Given | 03/25/19 | 10 mL | | | | (ROBITUSSIN DM) 10-100 mg/5 mL | | 18 8:29 | | | | | liquid 10 mL 10 mL, oral, EVERY | | PM PST | | | | | 4 HOURS NEEDED, Starting Sun | | | | | | | 03/21/17 at 2231, Until Sat | | | | | | | 03/27/17 at 2319, cough 2nd line | | | | | | + +-------+ +-------+---+---+ +-------+ +-------+---+---+ | Given | 03/24/19 | 10 mL | | | | | 18 9:44 | | | | | | PM PST | | | | +-------+ +-------+---+---+ | Given | 03/21/19 | 10 mL | | | | | 18 11:09 | | | | | | PM PST | | | | +-------+ +-------+---+---+ +---+---+ | | | +---+---+ + +-------+ +-------+---+---+ | diphenhydrAMINE (BENADRYL) | Given | 03/26/19 | 25 mg | | | | capsule 25 mg 25 mg, oral, EVERY | | 18 10:23 | | | | | 6 HOURS NEEDED, Starting Wed | | PM PST | | | | | 03/17/17 at 1731, Until 03/27/17 | | | | | | | at 2319, itching | | | | | | + +-------+ +-------+---+---+ +-------+ +-------+---+---+ | Given | 03/25/19 | 25 mg | | | | | 18 8:29 | | | | | | PM PST | | | | +-------+ +-------+---+---+ | Given | 03/24/19 | 25 mg | | | | | 18 9:24 | | | | | | PM PST | | | | +-------+ +-------+---+---+ +---+---+ | | | +---+---+ + +-------+ +--------+---+---+ | fentaNYL (SUBLIMAZE) injection | Given | 03/25/19 | 25 mcg | | | | intravenous, INTRAPROCEDURE PRN, | | 18 5:20 | | | | | Starting Inga 03/25/17 at 1610, | | PM PST | | | | | Until Inga 03/25/17 at 1720 | | | | | | + +-------+ +--------+---+---+ +-------+ +--------+---+---+ | Given | 03/25/19 | 25 mcg | | | | | 18 4:10 | | | | | | PM PST | | | | +-------+ +--------+---+---+ +---+---+ | | | +---+---+ + +-------+ + +---+---+ | fluticasone (FLONASE) 50 | Given | 03/26/19 | 2 sprays | | | | mcg/actuation nasal spray 2 spray | | 18 10:16 | | | | | 2 spray, both nostrils, TWICE | | PM PST | | | | | DAILY, First dose on 03/22/17 | | | | | | | at 1000, Until Discontinued | | | | | | + +-------+ + +---+---+ +-------+ + +---+---+ | Given | 03/26/19 | 2 sprays | | | | | 18 8:47 | | | | | | AM PST | | | | +-------+ + +---+---+ | Given | 03/25/19 | 2 sprays | | | | | 18 8:50 | | | | | | AM PST | | | | +-------+ + +---+---+ +---+---+ | | | +---+---+ + +-------+ +-------+---+---+ | furosemide (LASIX) injection 40 | Given | 03/18/19 | 40 mg | | | | mg 40 mg, intravenous, TWICE | | 18 3:06 | | | | | DAILY (DIURETIC), First dose on | | PM PST | | | | | 03/17/17 at 1445, Until | | | | | | | Discontinued | | | | | | + +-------+ +-------+---+---+ +-------+ +-------+---+---+ | Given | 03/18/19 | 40 mg | | | | | 18 8:54 | | | | | | AM PST | | | | +-------+ +-------+---+---+ | Given | 03/17/19 | 40 mg | | | | | 18 3:29 | | | | | | PM PST | | | | +-------+ +-------+---+---+ +---+---+ | | | +---+---+ + +-------+ +-------+---+---+ | furosemide (LASIX) injection 40 | Given | 03/19/19 | 40 mg | | | | mg 40 mg, intravenous, DAILY, | | 18 8:40 | | | | | First dose (after last | | AM PST | | | | | modification) on Wed03/19/17 at | | | | | | | 0815, Until Discontinued | | | | | | + +-------+ +-------+---+---+ +---+---+ | | | +---+---+ + +-------+ +-------+---+---+ | furosemide (LASIX) injection 40 | Given | 03/22/19 | 40 mg | | | | mg 40 mg, intravenous, TWICE | | 18 11:20 | | | | | DAILY (DIURETIC), First dose | | AM PST | | | | | (after last modification) on Fri | | | | | | | 03/19/17 at 1700, Until | | | | | | | Discontinued | | | | | | + +-------+ +-------+---+---+ +-------+ +-------+---+---+ | Given | 03/21/19 | 40 mg | | | | | 18 4:38 | | | | | | PM PST | | | | +-------+ +-------+---+---+ | Given | 03/21/19 | 40 mg | | | | | 18 9:14 | | | | | | AM PST | | | | +-------+ +-------+---+---+ +---+---+ | | | +---+---+ + +-------+ +-------+---+---+ | furosemide (LASIX) injection 80 | Given | 03/17/19 | 80 mg | | | | mg 80 mg, intravenous, ONCE, 1 | | 18 3:40 | | | | | dose, Wed03/17/17 at 0300 | | AM PST | | | | + +-------+ +-------+---+---+ +---+---+ | | | +---+---+ + +-------+ +-------+---+---+ | furosemide (LASIX) tablet 20 mg | Given | 03/24/19 | 20 mg | | | | 20 mg, oral, DAILY, First dose | | 18 8:52 | | | | | on Wed03/24/17 at 0930, Until | | AM PST | | | | | Discontinued | | | | | | + +-------+ +-------+---+---+ +---+---+ | | | +---+---+ + +-------+ +-------+---+---+ | furosemide (LASIX) tablet 20 mg | Given | 03/26/19 | 20 mg | | | | 20 mg, oral, DAILY, First dose | | 18 8:47 | | | | | on Wed03/25/17 at 1145, Until | | AM PST | | | | | Discontinued | | | | | | + +-------+ +-------+---+---+ +-------+ +-------+---+---+ | Given | 03/25/19 | 20 mg | | | | | 18 12:28 | | | | | | PM PST | | | | +-------+ +-------+---+---+ +---+---+ | | | +---+---+ + +-------+ +--------+---+---+ | guaiFENesin (ROBITUSSIN) liquid | Given | 03/26/19 | 100 mg | | | | 100 mg 100 mg, oral, EVERY 4 | | 18 10:14 | | | | | HOURS NEEDED, Starting Fri | | PM PST | | | | | 03/19/17 at 2103, Until 03/27/17 | | | | | | | at 2319, cough | | | | | | + +-------+ +--------+---+---+ +-------+ +--------+---+---+ | Given | 03/25/19 | 100 mg | | | | | 18 10:24 | | | | | | AM PST | | | | +-------+ +--------+---+---+ | Given | 03/24/19 | 100 mg | | | | | 18 8:43 | | | | | | PM PST | | | | +-------+ +--------+---+---+ +---+---+ | | | +---+---+ + + + +--------+---+---+ | heparin bolus from continuous | Bolus | 03/22/19 | 7,300 | | | | infusion 7,300 Units | from | 18 12:06 | Units | | | | intravenous, ONCE, 1 dose, Mon | Same Bag | PM PST | | | | | 03/22/17 at 1145 | | | | | | + + + +--------+---+---+ +---+---+ | | | +---+---+ + + + + + +---+ | heparin in D5W 25,000 Units/250 | Restarte | 03/22/19 | 1,300 | 13 mL/hr | | | mL (100 Units/mL) IV infusion | d | 18 5:01 | Units/hr | | | | (RTU) 1-2,500 Units/hr (0.01-25 | | PM PST | | | | | mL/hr), intravenous, CONTINUOUS, | | | | | | | Starting 03/22/17 at 1145, | | | | | | | Until Wed03/22/17 at 1915 | | | | | | + + + + + +---+ + + + + +---+ | Rate/Dose Verify | 03/22/19 | 1,300 | 13 mL/hr | | | | 18 4:08 | Units/hr | | | | | PM PST | | | | + + + + +---+ | New Bag | 03/22/19 | 1,300 | 13 mL/hr | | | | 18 12:04 | Units/hr | | | | | PM PST | | | | + + + + +---+ +---+---+ | | | +---+---+ + +-------+ +--------+---+---------+ | heparin, porcine (PF) injection | Given | 03/22/19 | 5,000 | | Abdomen | | 5,000 Units 5,000 Units, | | 18 4:48 | Units | | | | subcutaneous, EVERY 8 HOURS, | | AM PST | | | | | First dose on Wed03/17/17 at 0600, | | | | | | | Until Discontinued | | | | | | + +-------+ +--------+---+---------+ +-------+ +--------+---+---------+ | Given | 03/21/19 | 5,000 | | Abdomen | | | 18 8:22 | Units | | | | | PM PST | | | | +-------+ +--------+---+---------+ | Given | 03/21/19 | 5,000 | | Abdomen | | | 18 2:03 | Units | | | | | PM PST | | | | +-------+ +--------+---+---------+ +---+---+ | | | +---+---+ + +-------+ +--------+---+---------+ | heparin, porcine (PF) injection | Given | 03/27/19 | 5,000 | | Abdomen | | 5,000 Units 5,000 Units, | | 18 3:05 | Units | | | | subcutaneous, EVERY 8 HOURS, | | PM PST | | | | | First dose on Wed03/24/17 at | | | | | | | 1400, Until Discontinued | | | | | | + +-------+ +--------+---+---------+ +-------+ +--------+---+---------+ | Given | 03/27/19 | 5,000 | | Abdomen | | | 18 6:35 | Units | | | | | AM PST | | | | +-------+ +--------+---+---------+ | Given | 03/26/19 | 5,000 | | Abdomen | | | 18 10:15 | Units | | | | | PM PST | | | | +-------+ +--------+---+---------+ +---+---+ | | | +---+---+ + +-------+ + +---+---+ | HYDROcodone-acetaminophen | Given | 03/25/19 | 1 tablet | | | | (NORCO) 5-325 mg tablet 1 tablet | | 18 8:28 | | | | | 1 tablet, oral, EVERY 4 HOURS | | PM PST | | | | | NEEDED, Starting 03/17/17 at | | | | | | | 1107, Until 03/27/17 at 2319, | | | | | | | moderate pain | | | | | | + +-------+ + +---+---+ +-------+ + +---+---+ | Given | 03/24/19 | 1 tablet | | | | | 18 9:40 | | | | | | AM PST | | | | +-------+ + +---+---+ | Given | 03/23/19 | 1 tablet | | | | | 18 1:04 | | | | | | AM PST | | | | +-------+ + +---+---+ +---+---+ | | | +---+---+ + +---------+ +-------+---+---+ | iohexol (OMNIPAQUE) 350 mg | IV Push | 03/22/19 | 80 mL | | | | iodine/mL injection 80 mL 80 mL, | | 18 5:30 | | | | | intravenous, ONCE, 1 dose, Mon | | PM PST | | | | | 03/22/17 at 1730 | | | | | | + +---------+ +-------+---+---+ +---+---+ | | | +---+---+ + +-------+ +---------+---+---+ | lactobacillus rhamnosus (GG) | Given | 03/27/19 | 1 | | | | (CULTURELLE) 15 billion cell | | 18 9:13 | capsule | | | | capsule 1 capsule 1 capsule, | | AM PST | | | | | oral, DAILY, First dose on Fri | | | | | | | 03/26/17 at 1130, Until | | | | | | | Discontinued | | | | | | + +-------+ +---------+---+---+ +-------+ +---------+---+---+ | Given | 03/26/19 | 1 | | | | | 18 12:09 | capsule | | | | | PM PST | | | | +-------+ +---------+---+---+ +---+---+ | | | +---+---+ + +-------+ +------+---+---+ | lidocaine (XYLOCAINE) 10 mg/mL | Given | 03/22/19 | 1 mL | | | | (1 %) injection infiltration, | | 18 10:47 | | | | | INTRAPROCEDURE PRN, Starting Mon | | AM PST | | | | | 03/22/17 at 1047, Until Mon | | | | | | | 03/22/17 at 1047 | | | | | | + +-------+ +------+---+---+ +---+---+ | | | +---+---+ + +-------+ +--------+---+---+ | lidocaine (XYLOCAINE) 10 mg/mL | Given | 03/25/19 | 3.5 mL | | | | (1 %) injection infiltration, | | 18 4:27 | | | | | INTRAPROCEDURE PRN, Starting Inga | | PM PST | | | | | 03/25/17 at 1627, Until Inga | | | | | | | 03/25/17 at 1627 | | | | | | + +-------+ +--------+---+---+ +---+---+ | | | +---+---+ + +---------+ +-----+---+---+ | magnesium sulfate in water IV | New Bag | 03/18/19 | 2 g | | | | (RTU) 2 g 2 g, intravenous, | | 18 6:15 | | | | | ONCE, 1 dose, Inga 03/18/17 at 1845 | | PM PST | | | | + +---------+ +-----+---+---+ +---+---+ | | | +---+---+ + +-------+ +------+---+---+ | menthol (COUGH DROPS) lozenge 5 | Given | 03/25/19 | 5 mg | | | | mg 5 mg (1 lozenge), oral, | | 18 10:24 | | | | | NEEDED, Starting 03/24/17 at | | AM PST | | | | | 2207, Until 03/27/17 at 2319, | | | | | | | sore throat | | | | | | + +-------+ +------+---+---+ +---+---+ | | | +---+---+ + +-------+ +--------+---+---+ | midazolam (PF) (VERSED) | Given | 03/25/19 | 0.5 mg | | | | injection INTRAPROCEDURE PRN, | | 18 4:10 | | | | | Starting Inga 03/25/17 at 1610, | | PM PST | | | | | Until Inga 03/25/17 at 1610 | | | | | | + +-------+ +--------+---+---+ + +---+ | | | + +---+ | ondansetron (ZOFRAN) injection | | | 4 mg 4 mg, intravenous, EVERY 12 | | | HOURS NEEDED, Starting Wed | | | 03/17/17 at 1104, Until 03/27/17 | | | at 2319, nausea/vomiting, first | | | line | | + +---+ | | | + +---+ + +---------+ +--------+---+---+ | perflutren lipid microspheres | IV Push | 03/22/19 | 1.5 mL | | | | (DEFINITY) injection 1.5 mL 1.5 | | 18 9:20 | | | | | mL, intravenous, PROCEDURE ONCE, | | AM PST | | | | | 1 dose, 03/22/17 at 0900 | | | | | | + +---------+ +--------+---+---+ +---+---+ | | | +---+---+ + +-------+ +--------+---+---+ | potassium chloride (KLOR-CON) | Given | 03/27/19 | 40 mEq | | | | packet 40 mEq 40 mEq, oral, | | 18 9:12 | | | | | TWICE DAILY, First dose on Sun | | AM PST | | | | | 03/21/17 at 1045, Until | | | | | | | Discontinued | | | | | | + +-------+ +--------+---+---+ +-------+ +--------+---+---+ | Given | 03/26/19 | 40 mEq | | | | | 18 10:16 | | | | | | PM PST | | | | +-------+ +--------+---+---+ | Given | 03/26/19 | 40 mEq | | | | | 18 8:47 | | | | | | AM PST | | | | +-------+ +--------+---+---+ +---+---+ | | | +---+---+ + +-------+ +--------+---+---+ | potassium chloride SR (K-DUR) | Given | 03/18/19 | 20 mEq | | | | tablet 20 mEq 20 mEq, oral, | | 18 8:54 | | | | | DAILY, First dose on [facility] 03/18/17 | | AM PST | | | | | at 0945, Until Discontinued | | | | | | + +-------+ +--------+---+---+ +---+---+ | | | +---+---+ + +-------+ +--------+---+---+ | potassium chloride SR (K-DUR) | Given | 03/19/19 | 20 mEq | | | | tablet 20 mEq 20 mEq, oral, | | 18 8:40 | | | | | TWICE DAILY, First dose (after | | AM PST | | | | | last modification) on Wed03/19/17 | | | | | | | at 0900, Until Discontinued | | | | | | + +-------+ +--------+---+---+ +---+---+ | | | +---+---+ + +-------+ +--------+---+---+ | potassium chloride SR (K-DUR) | Given | 03/18/19 | 40 mEq | | | | tablet 40 mEq 40 mEq, oral, | | 18 8:16 | | | | | EVERY 2 HOURS, 2 doses, First | | PM PST | | | | | dose on Wed03/18/17 at 1830, Last | | | | | | | dose on Wed03/18/17 at 2030 | | | | | | + +-------+ +--------+---+---+ +-------+ +--------+---+---+ | Given | 03/18/19 | 40 mEq | | | | | 18 6:14 | | | | | | PM PST | | | | +-------+ +--------+---+---+ +---+---+ | | | +---+---+ + +-------+ +--------+---+---+ | potassium chloride SR (K-DUR) | Given | 03/20/19 | 40 mEq | | | | tablet 40 mEq 40 mEq, oral, | | 18 8:55 | | | | | TWICE DAILY, First dose (after | | PM PST | | | | | last modification) on Wed03/19/17 | | | | | | | at 2100, Until Discontinued | | | | | | + +-------+ +--------+---+---+ +-------+ +--------+---+---+ | Given | 03/20/19 | 40 mEq | | | | | 18 8:50 | | | | | | AM PST | | | | +-------+ +--------+---+---+ | Given | 03/19/19 | 40 mEq | | | | | 18 9:07 | | | | | | PM PST | | | | +-------+ +--------+---+---+ +---+---+ | | | +---+---+ + +-------+ + +---+---+ | senna-docusate (SENOKOT S) | Given | 03/23/19 | 1 tablet | | | | 8.6-50 mg 1 tablet 1 tablet, | | 18 10:31 | | | | | oral, TWICE DAILY, First dose on | | AM PST | | | | | 03/17/17 at 0245, Until | | | | | | | Discontinued | | | | | | + +-------+ + +---+---+ +-------+ + +---+---+ | Given | 03/22/19 | 1 tablet | | | | | 18 9:31 | | | | | | AM PST | | | | +-------+ + +---+---+ | Given | 03/19/19 | 1 tablet | | | | | 18 9:07 | | | | | | PM PST | | | | +-------+ + +---+---+ +---+---+ | | | +---+---+ + +-------+ +-------+---+---+ | sildenafil (REVATIO) oral dose | Given | 03/27/19 | 10 mg | | | | 10 mg 10 mg, oral, THREE TIMES | | 18 9:12 | | | | | DAILY, First dose on Wed03/26/17 | | AM PST | | | | | at 1600, Until Discontinued | | | | | | + +-------+ +-------+---+---+ +-------+ +-------+---+---+ | Given | 03/26/19 | 10 mg | | | | | 18 10:15 | | | | | | PM PST | | | | +-------+ +-------+---+---+ | Given | 03/26/19 | 10 mg | | | | | 18 3:22 | | | | | | PM PST | | | | +-------+ +-------+---+---+ +---+---+ | | | +---+---+ + +-------+ +-------+---+---+ | sildenafil (REVATIO) tablet 20 | Given | 03/27/19 | 20 mg | | | | mg 20 mg, oral, THREE TIMES | | 18 12:41 | | | | | DAILY, First dose (after last | | PM PST | | | | | modification) on 03/27/17 at | | | | | | | 1245, Until Discontinued | | | | | | + +-------+ +-------+---+---+ +---+---+ | | | +---+---+ + +-------+ + +---+---+ | sodium chloride (OCEAN) 0.65 % | Given | 03/27/19 | 2 sprays | | | | nasal spray 2 spray 2 spray, | | 18 12:41 | | | | | both nostrils, FOUR TIMES DAILY, | | PM PST | | | | | First dose on 03/22/17 at | | | | | | | 1800, Until Discontinued | | | | | | + +-------+ + +---+---+ +-------+ + +---+---+ | Given | 03/26/19 | 2 sprays | | | | | 18 10:16 | | | | | | PM PST | | | | +-------+ + +---+---+ | Given | 03/26/19 | 2 sprays | | | | | 18 8:47 | | | | | | AM PST | | | | +-------+ + +---+---+ +---+---+ | | | +---+---+ + +---------+ + + +---+ | sodium chloride 0.9% IV | New Bag | 03/25/19 | 10 mL/hr | 10 mL/hr | | | infusion INTRAPROCEDURE | | 18 4:09 | | | | | CONTINUOUS PRN, Starting Inga | | PM PST | | | | | 03/25/17 at 1609, Until Inga | | | | | | | 03/25/17 at 1609 | | | | | | + +---------+ + + +---+ +---+---+ | | | +---+---+ documented in this encounter
--- OUTSIDE RECORDS SUMMARY | ~2019-10-23 | XMS | Encounter Summary ---
Demographics + + + | Address | [address] | | | [place] [address] | + + + | Home Phone [...] + + + | Author | [facility] | + + + | Organization | [facility] | + + + | Address | [...] Team Providers + +------+ + | Care Public Affairs Officer Name | Role | Phone | + +------+ + | Bobbi Jenkins NP | PCP | | + +------+ + Encounter Details +--------+ + + + + | Date | Type | Department | Care Team | Description | +--------+ + + + + | 11/22/ | Telephone | Pulmonary & | Kate Garcia, | | | 2019 | | Critical Care | [address] | | | | | Medicine at | [facility] | | | | | [facility] | [place], [place] | | | | | [address] | [address] | | | | | [address] [facility] | [phone] | | | | | Donna, [address] [place] [address] | | | | | | [place], [place] | | | | | | [address] | | | | | | [phone] | | | +--------+ + + + [...] encounter Miscellaneous Notes Telephone Encounter - Kate Garcia MD - 11/24/2018 3:29 PM PDTI called her and chineduuc derek to call 911 and go to the ED right away - I am concerned that she may have developed an arrhyhtmia, potentially a-fib or a-flutter, and may need HR control. She reports her understanding and will make her way to the ED immediately. I have a clinic appointment with her tomorrow, if she cannot make it, will reschedule Elect ronically signed by Kate Garcia MD at 11/24/2018 3:32 PM PDTTelephone Encounter - Mark Cuevas MA - 11/24/2018 3:23 PM PDTPatient calling and states that today shes very flushe d her heart rate has been fluctuating from 225-77 when her heart rate drops her o2 sat drop even on the oxygen 4 liters she feels very short of breath she states that she is not feelin g very well her stomach is causing her pain Weight is up to 206lbs and she left hospoital at 192 on wednesday shes wondering if she should go to the ED she states she hasnt been able to see a cardiolog ist yet but she does have an appt with dr garcia tomorrow elephone Encounter - Mark Murphy MA - 11/24/2018 11:02 A M PDTPCP calling and would like a BMP drawn at appt tomorrow with Dr. GarciaElectronically sig liz by Mark Murphy MA at 11/24/2018 11:03 AM PDTTelephone Encounter - Kate Garcia MD - 11/22/2018 10:34 AM PDTCalled Ms. Barron to check on her given that she cancelled her [facility] appointment today She says she feels fine although she told me that her HR dropped to the 40s yesterday for a second and then went up to the 100s (her baseline is 90-100). Etiology is unclear. She has been about even to slightly net negative each day. We discussed that if her HR drops again, she needs to go to her nearest ED to be evaluated. I discussed with her that she needs labs and also probably needs a Holter monitor or o mn tc to see what is happening with her heart rate. I have called her PCP to get her labs and an urgent cardiology evaluation -> they agreed and are working on it. I have overbooked her for my clinic on Wednesday of this week. documented in this encounter Plan of Treatment Not on filedocumented as of this encounter Visit Diagnoses Not on filedocumented in this encounter"
--- OUTSIDE RECORDS SUMMARY | ~2019-10-23 | XMS | Encounter Summary ---
Demographics + + + | Address | [address] | | | [place] [address] | + + + | Home Phone [...] + + + | Author | [facility] | + + + | Organization | [facility] | + + + | [...] Team Providers + +------+ + | Care Food Service Worker Hospital Name | Role | Phone | + +------+ + | Bobbi Jenkins NP | PCP | | + +------+ + Reason for Visit + +--------+ + | Reason | Onset | Comments | | | Date | | + +--------+ + | Refer to social | 03/20/ | Patient to stay the night on 03/22/2019 | | worker | 2020 | | + +--------+ + Encounter Details +--------+ + + + + | Date | Type | Department | Care Team | Description | +--------+ + + + + | 03/20/ | Telephone | Pulmonary & | Kate Benjamin, | Refer to social | | 2019 | | Critical Care | [address] | worker (Patient to | | | | Medicine at | [facility] [address] | stay the night on | | | | [facility] | [place], [place] | 03/22/2019) | | | | [address] | [address] | | | | | [address] [facility] | [phone] | | | | | Donna, [facility] Floor | | | | | | [place], [place] | | | | | | [address] | | | | | | [phone] | | | +--------+ + + + [...] Telephone Encounter - Raghavendra Rodriguez MA - 03/29/2019 2:03 PM PSTNo action needed. Elia nt was seen. elephon e Encounter - Raghavendra Rodriguez MA - 03/21/2019 4:54 PM PSTCalled LM. Need additional info. elephone Encounter - Yovanny Bill - 03/20/2019 3:54 PM PSTPatient has tight time frames with all of h er appointments. The patient is traveling 3 hours from home and I am suggesting the patient be referred to social work for an overnight stay at a hotel nearby to alleviate her travels . The appointment is this week 03/23/2019. Thank you so much. documented in this encounter Plan of Treatment Not on filedocumented as of this encounter Visit Diagnoses Not on filedocumented in this encounter"
--- OUTSIDE RECORDS SUMMARY | ~2019-10-23 | XMS | Encounter Summary ---
Demographics + + + | Address | [address] | | | [place] [address] | + + + | Home Phone [...] Team Providers + +------+ + | Care Calender Tender Name | Role | Phone | + [...] Michael | | | | | at [facility] | [facility] | | | | | [address] | [place] [address] | | | | | [address] | | | | | | [place], [address] [place] [address] | | | | | | [place], [place] | | | | | | [address] | | | | | | [phone] | | | +--------+ + + + [...] +---------+ + + | medical supply, | INOGEN PORTABLE | 1 each | 2 | 03/23/19 | | | miscellaneous (RX | CONCENTRATORPlease | | | 20 | | | HOME OXYGEN) | fax to [facility] | | | | | | |Please fax to [facility] | | | | | + + [...] this encounter Results 12 LEAD ECG (03/23/2019 1:49 PM PST) [...] + + + + + + | [facility] | 477 | ms | [facility] [...] | + + + + + | [facility] | [address] | [place], [place] | | | CARDIOLOGY | [address] | [address] | | + + + + + documented in this encounter Visit Diagnoses Not on filedocumented in this encounter"
--- OUTSIDE RECORDS SUMMARY | ~2019-10-23 | XMS | Encounter Summary ---
Demographics + + + | Address | [address] | | | [place] [address] | + + + | Home Phone [...] Team Providers + +------+ + | Care Siding Applicator Name | Role | Phone | + +------+ + | Bobbi Jenkins NP | PCP | | + +------+ + Encounter Details +--------+ + + + + | Date | Type | Department | Care Team | Description | +--------+ + + + + | 04/26/ | Pharmacy | [facility]patient [facility] | | | | 2017 | Visit | [facility] | | | | | | [address] | | | | | | [place], [place] | | | | | | [address] | | | | | | [phone] | | | +--------+ + + + [...]
--- OUTSIDE RECORDS SUMMARY | ~2019-10-23 | XMS | Encounter Summary ---
Demographics + + + | Address | [address] | | | [place] [address] | + + + | Home Phone [...] Author + + + | Author | [facility] | + + + | Organization | [facility] | + + + | Address [...] Team Providers + +------+ + | Care Supervisor Inspection Name | Role | Phone | + +------+ + | Bobbi Jenkins NP | PCP | | + +------+ + Encounter Details +--------+ + + + + | Date | Type | Department | Care Team | Description | +--------+ + + + + | 02/21/ | [facility] [employer] | Pulmonary & | Rosangela Hall MD | | | 2020 | | Critical Care | [address] | | | | | Medicine at | [facility], | | | | | [facility] | [place] [address] | | | | | [address] | [phone] | | | | | [address] [facility] | | | | | | Donna, [address] [place] [address] | | | | | | [place], [place] | | | | | | [address] | | | | | | [phone] | | | +--------+ + + + [...] documented as of this encounter Miscellaneous Notes Addendum Note - Rosangela Hall MD - 02/21/2019 3:03 PM PST Addended by: ROSANGELA HALL MD on: 03:03 PM Modules accepted: Orders elephone Encounter - Rosangela Reyes MD - 02/21/2019 2:55 PM PSTI spoke with the patient and she was changed to Tors emide as she continues to have corresponds to Furosemide. She agreed to try bumetanide. Plan change to 4 mg of bumetanide in the morning and 2 mg in the afternoon with a plan to decrea se dose to 2 mg in the morning and 1 mg in the afternoon if she does feels she has too much diuresis. She agreed with this plan. 3 :03 PM PSTTelephone Encounter - Rosangela Hall MD - 02/21/2019 1:56 PM PSTI left patient a vo icemail. Plan is to change her torsemide to furosemide for 12 weeks while she is being cons idered for the ALTAVANT study. Prescription was sent to her pharmacy in [place]. I will try to contact the patient again to discuss further. Research coordinator will also try to get in touch with the patient. documented in this encounter Plan of Treatment Not on filedocumented as of this encounter Visit Diagnoses Not on filedocumented in this encounter"
--- OUTSIDE RECORDS SUMMARY | ~2019-10-23 | XMS | Encounter Summary ---
Demographics + + + | Address | [address] | | | [place] [address] | + + + | Home Phone [...] + + + | Author | [facility] | + + + | Organization | [facility] | + + + | [...] Providers + +------+ + | Care Assistant Professor Of Biology Name | Role | Phone | + +------+ + | Bobbi Jenkins NP | PCP | | + +------+ + Reason for Visit + +--------+ + | Reason | Onset | Comments | | | Date | | + +--------+ + | Scheduling | 09/19/ | | | | 2020 | | + +--------+ + | Lab Order | 09/19/ | Echo/EKG - Send External | | | 2020 | | + +--------+ + Encounter Details +--------+ + + + + | Date | Type | Department | Care Team | Description | +--------+ + + + + | 09/19/ | Telephone | Pulmonary & | Beth Keith, | Scheduling; Lab | | 2019 | | Critical Care | [address] | Order (Echo/EKG - | | | | Medicine at | [facility] [address] | Send External) | | | | [facility] | [place], [place] | | | | | [address] | [address] | | | | | [address] [facility] | [phone] | | | | | [place], [facility] | | | | | | [place], [place] | | | | | | [address] | | | | | | [phone] | | | +--------+ + + + [...] Encounter - Gianna Worthy MA - 09/22/2019 1:50 PM PDTSpoke to patient and re layed Dr. Keith's msg that an echo is not needed at this time. elephone Encounter - Beth Keith MD - 020 1:19 PM PDTDoes not need an echo at this time. We reassess at her visit with me in Oct . elephone Encounter - Holly Early - 09/20/2019 10:41 AM PDTOUTBOUND CALL DATE: September 20, 2019 TIME: 10:41 AM PATIENT: Gema Barron : 1965 Outbound call to Gema at [phone] (home) to reschedule an appointment with Beth Keith. Patient stated that she typically also has an Echo and EKG done during her visits, but no o rders are placed. Dr. Keith: please place orders for Echo and EKG, if needed. MAs: please send orders externally to [facility]: Diagnostic Imaging [address] [address] documented in this encounter Plan of Treatment Not on filedocumented as of this encounter Visit Diagnoses Not on filedocumented in this encounter"
--- OUTSIDE RECORDS SUMMARY | ~2019-10-23 | XMS | Encounter Summary ---
Demographics + + + | Address | [address] | | | [place] [address] | + + + | Home Phone [...] Team Providers + +------+ + | Care Concrete Pavement Installer Name | Role | Phone | + [...] Description | +--------+--------+ + + + | 06/27/ | Refill | Pulmonary & | Mya Hall MD | Refill Request | | 2019 | | Critical Care | [address] | | | | | Medicine at | [facility], | | | | | [facility] | [place] [address] | | | | | [address] | [phone] | | | | | [address] | | | | | | [address], [facility] Floor | | | | | | [place], [place] | | | | | | [address] | | | | | | [phone] | | | +--------+--------+ + + + [...] Telephone Encounter - Mark Murphy MA - 06/28/2018 8:37 AM PDTFormatting of this note mi ght be different from the original. REFILL REQUEST DATE: June 28, 2018 PATIENT: Gema Barron [id number] Received refill request from the pharmacy. Reviewed chart, medication current on med list. Rx pended and routed to the provider for approval or denial. Requested Prescriptions Pending Prescriptions Disp Refills TORSEMIDE 20 mg oral tablet [Pharmacy Med Name: TORSEMIDE 20 MG TABLET] 60 tablet 0 Sig: take 2 tablets by mouth every morning and 1 tablet every evening if needed LAST APPOINTMENT: 10/12/17 at 3:39 pm NEXT APPOINTMENT: 07/26/18 at 3:30 pm Patient's pharmacy has been verified: Yes [id number] [facility] [address] [place] [id number] documented in this enco unter Plan of Treatment Not on filedocumented as of this encounter Visit Diagnoses Not on filedocumented in this encounter"
--- OUTSIDE RECORDS SUMMARY | ~2019-10-23 | XMS | Encounter Summary ---
Demographics + + + | Address | [address] | | | [place] [address] | + + + | Home Phone | | + + + | Preferred Language | Unknown | + + + | Marital Status | Single | + + + | Gnosticist Affiliation | CHR | + + + | Race | White | + + + | Ethnic Group | Not or | + + + Author + + + | Author | [facility] | + + + | Organization | [facility] | + + + | [...] Team Providers + +------+ + | Care Practicing Urologist Name | Role | Phone | + [...] | Pulmonary | MD Mya | [facility] [address] | | | | | hypertension | [address] | | | | | (HCC) | [address] | [address] | | | | | Procedures | Rd | [place] | | | | | TRANSTHORACI | [place], [place] | [facility] | | | | | C | [address] | floor | | | | | ECHOCARDIOGR | Phone: | [place], [place] | | | | | AM, ADULT | [phone] | [address] | | | | | | Fax: | Phone: | | | | | | [phone] | [phone] | +--------+--------+ + + + + Encounter Details +--------+ + + + + | Date | Type | Department | Care Team | Description | +--------+ + + + + | 03/28/ | Forming Yardage Control Operator | Pulmonary & | Mya Hall MD | Pulmonary | | 2018 | | Critical Care | [address] | hypertension (HCC) | | | | Medicine at | [facility], | (Primary Dx) | | | | [facility] | [place] [address] | | | | | [address] | [phone] | | | | | [address] | | | | | | [place], [address]rd Floor | | | | | | [place], [place] | | | | | | [address] | | | | | | [phone] | | | +--------+ + + + [...] formed At | + +---- + | [facility] | [facility] DEPT OF | | and [facility]chocardi[facility] [address] | | [address], [place] [address] Ph: | | | Pt Name: GEMA BARRON | | | Study Date/Time 10/12/2017 / 8:14:47 AMMRN: [id number] | | | Most recent prior: 03/22/2017Acc #: [id number] | | | No. previous echos: 1DOB: 1965 52 years Heart | | | Rate: 88 bpmHeight: 66.0 in Blood | | | Pressure: 140/92 mm/HgWeight: 180.0 lb | | | Gender: FBSA: 1.91 m2 | | | Order ID: [id number] Host: Kellen Bazzi | | | RCSSonographer 2:Referring [...] Interface, Cardiology Results - 10/12/2017 10:33 AM [facility] | | [facility] Echocardiography Laboratory [address] [place] [address] | | [place], [place] [address] Pt Name: GEMA Hughes Riley | JAKI Study Date/Time 10/12/2017 / 8:14:47 AMMRN: [id number] Most | | recent prior: 03/22/2017Acc #: [id number] No. previous echos: 1DOB: | | 1965 52 years Heart Rate: 88 bpmHeight: 66.0 in Blood | | Pressure: 140/92 mm/HgWeight: 180.0 lb Gender: FBSA: | | 1.91 m2 Order ID: [id number] Host: Kellen Bazzi | | RCSSonographer 2:Referring Provider: [...] + | [facility] DEPT OF | [address] | [place], [place] | | | CARDIOLOGY | [address] | [address] | | + + + + + 6 MINUTE WALK, PULM FUNCTION LAB (04/08/2017 8:25 AM PST) + + + + + + | Component | Value | Ref Range | Performed | Pathologist | | | | | At | Signature | + + + + + + | PULMONARY | Site: [facility] and | | [facility] | | | INTERPRETAT | [facility], [address] | | SPECIAL | | | [address] | [facility] | | DIAGNOSTICS | | | | [address],[place], [place], | | - | | | | [address]VP: [id number] | | PULMONARY | | | | Name: GEMA BARRON | | FUNCTION | | | | SVisit Date: 04/08/2017 | | | | | | Second ID: | | | | | | [id number]: | | | | | | John Mckeon: 52 | | | | | | [...] BEATRIS SCHWARTZ | [address] | [place], [place] | | | DIAGNOSTICS - | [place] | [address] | | | PULMONARY FUNCTION | | | | + + + + + documented in this encounter Visit Diagnoses + + | Diagnosis | + + | Pulmonary hypertension (HCC) - Primary Other chronic pulmonary heart diseases | + + documented in this encounter"
--- OUTSIDE RECORDS SUMMARY | ~2019-10-23 | XMS | Encounter Summary ---
Demographics + + + | Address | [address] | | | [place] [address] | + + + | Home Phone [...] Author + + + | Author | [facility] | + + + | Organization | [facility] | + + + | [...] Team Providers + +------+ + | Care Sales Lead Name | Role | Phone | + +------+ + | Eve Daugherty MD | PCP | | + +------+ + Reason for Visit + +--------+ + | Reason | Onset | Comments | | | Date | | + +--------+ + | Medication Question | 11/03/ | Torsemide | | | 2019 | | + +--------+ + Encounter Details +--------+ + + + + | Date | Type | Department | Care Team | Description | +--------+ + + + + | 11/03/ | Telephone | Pulmonary & | Kate Benjamin, | Medication Question | | 2019 | | Critical Care | [address] | (Torsemide) | | | | Medicine at | [facility] | | | | | [address] | [place], [place] | | | | | [address] | [address] | | | | | [address] | [phone] | | | | | Donna, [address] [place] [address] | | | | | | [place], [place] | | | | | | [address] | | | | | | [phone] | | | +--------+ + + + [...] Telephone Encounter - Kate Benjamin MD - 11/07/2018 4:32 PM PDTCalled Ms. Barron back to discuss her dose of torsemide. Normally she takes 40mg PO BID Her first double dose was on Wednesday, now taking 80mg PO BID. She reports that her urine is minimal. She reports that her has been slowly gaining more and more weight, she is now 30 lbs up and does not think she is losing weight with the extra torsemide dose. She still feels weak and is having increased tightness in her chest. I am concerned that she needs IV diuresis given her significant weight gain in the setting of her PH. I have asked her to go to the ED for further evaluation and consideration for inp atient admission with IV diuresis. She agreed. I have also called the [facility] to let them know that she is coming and my thoughts about what is going on as well as to contact us if any questions. elephone Encounter - Saniya Mcmillan - 11/07/2018 3:54 PM PDTSandra called to see how long she should continu e taking a double dose of Torsemide. elephone Encounter - Mark Murphy MA - 11/03/2018 2:53 PM PDTPatient was see n last night in the ED in [place] for SOB, high pulse, and feeling very weak. Patient stat es the ED doc recommended that she double her dose for torsemide for morning dose because sh es retaining a lot of water she believes around 30 pounds of excess water. Patient is due to be seen 11/17/[address] Benjamin. She would like to know how long she should double the dose. documented in this enco unter Plan of Treatment Not on filedocumented as of this encounter Visit Diagnoses Not on filedocumented in this encounter"
--- OUTSIDE RECORDS SUMMARY | ~2019-10-23 | XMS | Encounter Summary ---
Demographics + + + | Address | [address] | | | [place] [address] | + + + | Home Phone [...] Team Providers + +------+ + | Care Chemical Engineering Professor Name | Role | Phone | + +------+ + | Eve Daugherty MD | PCP | | + +------+ + Encounter Details +--------+ + + + + | Date | Type | Department | Care Team | Description | +--------+ + + + + | 06/03/ | Documentati | Pulmonary & | Mya Hall MD | | | 2018 | on | Critical Care | [address] | | | | | Medicine at [facility], | | | | | [address] | [place] [address] | | | | | [address] | [phone] | | | | | [address] | | | | | | [address], [address] Floor | | | | | | [place], [place] | | | | | | [address] | | | | | | [phone] | | | +--------+ + + + [...]
--- OUTSIDE RECORDS SUMMARY | ~2019-10-23 | XMS | Encounter Summary ---
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 | - | | | | [address]WA: [id number] | | PULMONARY | | | | Name: GEMA BARRON | | FUNCTION | | | | SVisit Date: 03/23/2019 | | | | | | Second ID: | | | | | | [id number]: | | | | | | Zita Izaguirre: 54 | | | | | | : 1965 Sex: | | | | | | Female Race: | | | | | | CaucasianHeight: 164.50 | | | | | | Cms Weight: 81.10 | | | | | | Kgs BSA: 1.88Order | | | | | | IDs: [id number] | | | | | | Test(s): [...] | | | | | | mildlyreduced (8376-3745 | | | | | | feet). [...] | + + + + + | [facility] | [address] | [place], [place] | | | DIAGNOSTICS - | [address] [place] | [address] | | | PULMONARY FUNCTION | | | | + + + + + 12 LEAD ECG (11/25/2018 1:22 PM PDT) + + + + + [...] + + + | ATRIAL RATE | 81 | ms | [facility] | | | | | | OF | | | | | | CARDIOLOGY | | + + + + + + | P-R | 147 | ms | [facility] | | | INTERVAL | | | OF | | | | | | CARDIOLOGY | | + + + + + + | P AXIS | 25 | deg | [facility] | | [...] + + + + | QTC-BAZOYATT | 445 | ms | [facility] | | | | | | OF | | | | | | CARDIOLOGY | | + + + + + + | R AXIS | -4 | deg | [facility] | | [...] + + + + | ECG | Low voltage, precordial | | [facility] | | | IMPRESSION | leads- OTHERWISE NORMAL | | OF | | | | ECG - | | CARDIOLOGY | | + + + + + + | ECG | Electronically signed | | [facility] | | | IMPRESSION | by: CARIE MEI | | OF | | | | 11-25-2018 14:28:41 | | CARDIOLOGY | | + + [...] | [facility] | [address] | [place], [place] | | | CARDIOLOGY | [address] | [address] | | + + + + + [...] [facility] | [address] | [place] [address] | | | SERVICES, CORE | AD [...] + | [facility] | [address] | [place] [address] | | | RAN LEDESMA | AD [...] + | [facility] | [address] | [place] [address] | | | SERVICES, CORE | PARK [...] | | | LABORATORY | | | DOMINICAN | | | SERVICES, | | | [...] MDRD equation recommended by the National | [facility] | | Kidney Disease Education Program. Estimated [...] | + + + + + | [facility] | [address] | [place] [address] | | | SERVICES, CORE | PARK [...] LABORATORY | | Barbiturates >=200 ng/mL | SERVICES, CORE | | Benzodiazepine >=200 ng/mL Cocaine | [...] | + + + + + | [facility] | [address] | [place] [address] | | | SERVICES, CORE | PARK [...] | 1,019 (H) | <125 pg/mL | [facility] | | | | | | LABORATORY [...] | + + + + + | [facility] | [address] | [place] [address] | | | SERVICES, CORE | [address] | | | + + + + + EXTENDED PROCESS IMPROVEMENT MANAGER (14 DAY) (11/25/2018 1:26 AM PDT) + + + + + + | Component | Value | Ref Range | Performed | Pathologist | | | | | At | Signature | + + + + + + | CARDIOLOGY | See PDF Scan for Report | | [facility] | | | INTERPRETAT | | [...] | [facility] | [address] | [place], [place] | | | CARDIOLOGY | [address] | [address] | | + + + + + documented in this encounter Visit Diagnoses + + | Diagnosis | + + | Pulmonary hypertension (HCC) - Primary Other chronic pulmonary heart diseases | + + documented in this encounter
--- OUTSIDE RECORDS SUMMARY | ~2019-10-23 | XMS | Encounter Summary ---
Demographics + + + | Address | [address] | | | [place] [address] | + + + | Home Phone [...] Providers + +------+ + | Care Gas Derrick Operator Name | Role | Phone | + +------+ + | Eve Daugherty MD | PCP | | + +------+ + Encounter Details +--------+ + + + + | Date | Type | Department | Care Team | Description | +--------+ + + + + | 04/05/ | Telephone | Pulmonary & | Mya Hall MD | | | 2018 | | Critical Care | [address] | | | | | Medicine at [facility], | | | | | [facility] [place] | [place] [address] | | | | | [address] | [phone] | | | | | [address] | | | | | | [place], [address] Floor | | | | | | [place], [place] | | | | | | [address] | | | | | | [phone] | | | +--------+ + + + [...] Telephone Encounter - Mya Hall MD - 04/05/2017 11:51 AM PSTSpoke to the patient, she is going to contact her primary care provider to help with the disability paperwork. She will get notes from pulmonary clinic if necessary.Electronically signed by Mya Hall MD at 03/12 11:54 AM PSTTelephone Encounter - Sydni Saldana MA - 04/05/2017 11:00 AM PSTFormattin g of this note might be different from the original. Dr. Hall see msg below. Do you do disability paperwork? Disability question Received: 3 days ago Message Contents Megan Stacy MA P Pul Triage Patient calling to schedule appointment with Dr. Hall. Scheduled for April 08. She is also inquiring about disability and would like to discuss the process prior to her a ppointment on so that she may come prepared. Please call patient to discuss. Phone number on file has been verified. Thank you, Megan Andrade (float) documented in this encou nter Plan of Treatment Not on filedocumented as of this encounter Visit Diagnoses Not on filedocumented in this encounter"
--- OUTSIDE RECORDS SUMMARY | ~2019-10-23 | XMS | Encounter Summary ---
Demographics + + + | Address | [address] | | | [place] [address] | + + + | Home Phone [...] + + + | Author | [facility] | + + + | Organization | [facility] | + + + | [...] Team Providers + +------+ + | Care Roundhouse Worker Name | Role | Phone | + +------+ + | Eve Daugherty MD | PCP | | + +------+ + Reason for Visit + +--------+ + | Reason | Onset | Comments | | | Date | | + +--------+ + | Social work | 11/04/ | | | consultation | 2019 | | + +--------+ + Encounter Details +--------+ + + + + | Date | Type | Department | Care Team | Description | +--------+ + + + + | 11/04/ | Telephone | SOCIAL WORK | Genoveva Vergara | Social work | | 2019 | | AMBULATORY [address] | consultation | | | | [address] | [place], | | | | | Mailcode: [place] | [place] [address] | | | | | [place], [place] | | | | | | [address] | | | | | | [phone] | | | +--------+ + + + [...] Notes Telephone Encounter - Genoveva Vergara - 11/04/2018 5:12 PM PDTReturned Rosamaria Barron's ph one call this afternoon. 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 She resides in [place] [facility], which is [place] east of [place], with an estimated driving time of 3 hours. Provided Rosamaria with contact information for her Non [employer] sportation brokerage: [employer] at . Encouraged patient to contact [facility] this afternoon or first thing Wednesday morning to request partial reimbursement for mileage, meals and lodging in regard to her four [facility] appointments scheduled on 11/11/2018. Her first appointment begins at 11:15 am and her fourth appointmen t will end at 3:00 pm that day. Patient states she has been told that the testing she will be doing that day, may require h er to spend the night in [place]. Explained that [facility] follows Medicaid rules in regard to lodging assistance and that her appointments are structured such that she will not be eligib le for lodging assistance, unless 11/11/18 testing indicates she must spend the night in [facility] for additional medical follow-up the next day. Genoveva Vergara, ECONOMIC HISTORY TEACHER #[id number] [employer] SW Team 5:2 3 PM PDTdocumented in this encounter Plan of Treatment Not on filedocumented as of this encounter Visit Diagnoses Not on filedocumented in this encounter"
--- OUTSIDE RECORDS SUMMARY | ~2019-10-23 | XMS | Encounter Summary ---
Demographics + + + | Address | [address] | | | [place] [address] | + + + | Home Phone [...] Team Providers + +------+ + | Care Radiologist Name | Role | Phone | + +------+ + | Bobbi Jenkins NP | PCP | | + +------+ + Encounter Details +--------+--------+ + + + | Date | Type | Department | Care Team | Description | +--------+--------+ + + + | 11/14/ | Intake | Transfer Center | | | | 2019 | | [address] | | | | | | [place], | | | | | | [place] [address] | | | +--------+--------+ + + + [...]
--- OUTSIDE RECORDS SUMMARY | ~2019-10-23 | XMS | Encounter Summary ---
Demographics + + + | Address | [address] | | | [place] [address] | + + + | Home Phone [...] Team Providers + +------+ + | Care Wild Life Manager Name | Role | Phone | + +------+ + | Eve Daugherty MD | PCP | | + +------+ + Encounter Details +--------+ + + + + | Date | Type | Department | Care Team | Description | +--------+ + + + + | 09/30/ | Documentati | Pulmonary & | Kate Benjamin, | | | 2019 | on | Critical Care | [address] | | | | | Medicine at | [facility] | | | | | [address] | [place], [place] | | | | | [address] | [address] | | | | | [address] [facility] | [phone] | | | | | [place], [address] [place] [address] | | | | | | [place], [place] | | | | | | [address] | | | | | | [phone] | | | +--------+ + + + [...]
--- OUTSIDE RECORDS SUMMARY | ~2019-10-23 | XMS | Encounter Summary ---
Demographics + + + | Address | [address] | | | [place] [address] | + + + | Home Phone [...] Team Providers + +------+ + | Care Switchboard Operator Helper Name | Role | Phone | + +------+ + | Eve Daugherty MD | PCP | | + +------+ + Encounter Details +--------+ + + + + | Date | Type | Department | Care Team | Description | +--------+ + + + + | 11/08/ | Telephone | Pulmonary & | Kate Benjamin, | | | 2019 | | Critical Care | [address] [facility] | | | | | Medicine at | [facility] | | | | | [facility] [place] | [place], [place] | | | | | [address] | [address] | | | | | [address] [facility] | [phone] | | | | | [place], [facility] Floor | | | | | | [place], [place] | | | | | | [address] | | | | | | [phone] | | | +--------+ + + + [...] Telephone Encounter - Kate Benjamin MD - 11/08/2018 10:12 AM PDTWas contacted by Dr. Scotty Oconnell at [facility] [place], [place] re: Ms. Barron They had some questions about her management Labs: BNP: 21 CXR shows atelectasis per their read She last had a TTE in May 2018 -> EF was hyperdynamic, RVSP was in the 70s, RV was enlarg ed but function was normal, RA was also enlarged. Troponin was negative per their report She is currently getting 60mg IV BID (just started this AM). I think this is a reasonable d ose to start with. I asked them to follow her Is and Os closely, consider TID dosing if need ed, and watching her labs closely (Cr is currently normal at 1). Would stop if her Cr starts to rise significantly. In terms of discharge, I advised that they switch her to orals before discharge, see if she is able to be slightly net negative each day and if so, she could be discharged on that dos e and we could adjust further in clinic as needed. She has an appointment with me on 11/17. documented in this en counter Plan of Treatment Not on filedocumented as of this encounter Visit Diagnoses Not on filedocumented in this encounter"
--- OUTSIDE RECORDS SUMMARY | ~2019-10-23 | XMS | Encounter Summary ---
Demographics + + + | Address | [address] | | | [place] [address] | + + + | Home Phone | | + + + | Preferred Language | Unknown | + + + | Marital Status | Single | + + + | Sabianist Affiliation | CHR | + + + | Race | White | + + + | Ethnic Group | Not or | + + + Author + + + | Author | [facility] | + + + | Organization | [facility] | + + + | [...] Team Providers + +------+ + | Care Liaison Officer Name | Role | Phone | + +------+ + | Eve Daugherty MD | PCP | | + +------+ + Encounter Details +--------+ + + + + | Date | Type | Department | Care Team | Description | +--------+ + + + + | 04/08/ | Results/Int | Pulmonary Function | | Primary pulmonary | | 2018 | erpretation | Lab at [facility] [address] | | hypertension (HCC) | | | | [address] | | (Primary Dx) | | | | [address] | | | | | | [place], [place] | | | | | | [address] | | | | | | [phone] | | | +--------+ + + + [...] + documented as of this encounter Progress Calvin Muñoz MD - 04/09/2017 4:37 PM PST Refer to PFT report. doc umented in this encounter Plan of Treatment Not on filedocumented as of this encounter Procedures + +--------+ + + + | Procedure Name | Priori | Date/Time | Associated Diagnosis | Comments | | | ty | | | | + +--------+ + + + | [place] PULMONARY STRESS | Routin | 04/09/2017 | Primary pulmonary | | | TESTING,SIMPLE | e | 4:37 PM | hypertension (HCC) | | | | | PST | | | + +--------+ + + + documented in this encounter Visit Diagnoses + + | Diagnosis | + + | Primary pulmonary hypertension (HCC) - Primary Primary pulmonary hypertension | + + documented in this encounter"
--- OUTSIDE RECORDS SUMMARY | ~2019-10-23 | XMS | Encounter Summary ---
Demographics + + + | Address | [address] | | | [place] [address] | + + + | Home Phone [...] Author + + + | Author | [facility] | + + + | Organization | [facility] | + + + | [...] Team Providers + +------+ + | Care Tanning Wheel Filler Name | Role | Phone | + +------+ + | Eve Daugherty MD | PCP | | + +------+ + Reason for Visit + +--------+ + | Reason | Onset | Comments | | | Date | | + +--------+ + | Medication Question | 11/19/ | HCG test for Ric | | | 2017 | | + +--------+ + Encounter Details +--------+ + + + + | Date | Type | Department | Care Team | Description | +--------+ + + + + | 11/19/ | Telephone | Pulmonary & | Mya Hall MD | Medication Question | | 2018 | | Critical Care | [address] | (HCG test for | | | | Medicine at | [facility], | Ric) | | | | [address] | [place] [address] | | | | | [address] | [phone] | | | | | [address] [facility] | | | | | | [place], [address] [place] [address] | | | | | | [place], [place] | | | | | | [address] | | | | | | [phone] | | | +--------+ + + + [...] Telephone Encounter - Mindi Irwin MA - 11/19/2017 9:30 AM PDTReceived a call from [place] with the [facility] program as well as [facility] pharmacy. Navya was informing us that prescription was transferred to [facility] pharmacy and they were requesting a prescription for this patient's Letairis. Rosalinda was calling to ask if aleksandra ent had a negative test. I was not able to find a recent test in [facility] or care everywhere. Attempted to call patient to inform her that we would be needing this but I did not get an answer and was not given an option to leave a message. Will try patient aga in as we will need to have record of a negative test before the pharmacy will disp ense the patient's medication. Sending in a prescription to [facility] per existing signed or gerry that was originally sent to [facility]. Abrisentan 10mg tabs #30 x5. documented in this encounter Plan of Treatment Not on filedocumented as of this encounter Visit Diagnoses + + | Diagnosis | + + | Pulmonary hypertension (HCC) - Primary Other chronic pulmonary heart diseases | + + documented in this encounter"
--- OUTSIDE RECORDS SUMMARY | ~2019-10-23 | XMS | Encounter Summary ---
Demographics + + + | Address | [address] | | | [place] [address] | + + + | Home Phone [...] + + + | Author | [facility] | + + + | Organization | [facility] | + + + | [...] Team Providers + +------+ + | Care Oracle Etl Developer Name | Role | Phone | + +------+ + | Eve Daugherty MD | PCP | | + +------+ + Reason for Visit + +--------+ + | Reason | Onset | Comments | | | Date | | + +--------+ + | Appointment | 06/07/ | | | Cancelled By Patient | 2018 | | + +--------+ + Encounter Details +--------+ + + + + | Date | Type | Department | Care Team | Description | +--------+ + + + + | 06/07/ | Telephone | Pulmonary & | Mya Hall MD | Appointment | | 2018 | | Critical Care | [address] | Cancelled By Patient | | | | Medicine at | [address] [place], | | | | | [address] [place] | [place] [address] | | | | | [address] | [phone] | | | | | [address] [facility] | | | | | | [address], [address] Floor | | | | | | [place], [place] | | | | | | [address] | | | | | | [phone] | | | +--------+ + + + [...] Telephone Encounter - Mindi Irwin MA - 06/09/2017 11:01 AM PDTCalled and lvm for the patient letting her know labs were sent to PCP's office. Also Dr. Hall would like the patie nt to be seen bianka in clinic, asked that she call me back to schedule follow up appt.Electro nically signed by Midni Irwin MA at 06/09/2017 11:02 AM PDTTelephone Encounter - Mindi aFrah MA - 06/09/2017 10:59 AM PDTFaxed lab orders to Dr. Daugherty's office, called and let office staff know that I was sending it over. Patient's appointment is actually [facility] ed[facility] for tomorrow 06/10. elephone Encounter - Mya Hall MD - 06/08/2017 9:42 AM PDTPatient was offered an ap pointment to be seen in clinic but was unable to make it. Will check labs on Wednesday to maru valencia decision about adjusting medications. I will request clinic to set up a new appointment a gain. elephone Encounter - Mindi Irwin MA - 06/07/2017 1:24 PM PDTPatient called in to cancel tomorrow's appoi ntment due to transportation issues. We also discussed her weight after the change in dose t o her lasix and potassium. She stated that she is still having weight issues and is retainin g water. Reports that she is fine today but yesterday she gained about 4 pounds and her weig ht as of this morning is 176 pounds. Her feet and lower legs have started to ache and she de scribes the pain as a pins & needles kind of sensation. She has not yet rechecked her electr olytes and bmp since the change in her medication. She is seeing her PCP on Wednesday and wo uld like to have the orders sent there so she can have her labs done at the time of her appo intment. Routing to Dr. Hall for orders and to advise weight gain. documented in this encounter Plan of Treatment Not on filedocumented as of this encounter Visit Diagnoses + + | Diagnosis | + + | Pulmonary hypertension (HCC) - Primary Other chronic pulmonary heart diseases | + + documented in this encounter"
--- OUTSIDE RECORDS SUMMARY | ~2019-10-23 | XMS | Encounter Summary ---
Demographics + + + | Address | [address] | | | [place] [address] | + + + | Home Phone [...] + + | Author | [facility] | + + + | Organization | [facility] | + + + | [...] Team Providers + +------+ + | Care Reference Investigator Name | Role | Phone | + +------+ + | Eve Daugherty MD | PCP | | + +------+ + Reason for Visit + +--------+ + | Reason | Onset | Comments | | | Date | | + +--------+ + | Prior Authorization | 07/22/ | | | Request - Medication | 2019 | | + +--------+ + Encounter Details +--------+ + + + + | Date | Type | Department | Care Team | Description | +--------+ + + + + | 07/22/ | Telephone | Pulmonary & | Mya Hall MD | Prior Authorization | | 2019 | | Critical Care | [address] | Request - Medication | | | | Medicine at | [facility], | | | | | [address] [place] | [place] [address] | | | | | [address] | [phone] | | | | | [address] [facility] | | | | | | [address], [address]rd Floor | | | | | | [place], [place] | | | | | | [address] | | | | | | [phone] | | | +--------+ + + + [...] Telephone Encounter - Sydni Saldana MA - 07/29/2018 3:09 PM PDTAttempted to call patient w fide [facility]. elephone Encounter - Mya Hall MD - 07/29/2018 12:46 PM PDTPatient is interested in switching from generic ambrisentan to brand-name ambrisentan (Letaris). This would require prior authoriza tion and should have a clinical reason. I will have fire support man contact patient to juventino eduardo if there are clinical reasons for this switch. I tried to contact patient over the phone and her voice mailbox was full. Patient had a recent appointment in clinic that she was unab le to keep. elephone Enco unter - Sydni Saldana MA - 07/28/2018 3:21 PM PDTGloria with [employer] called asking if he fee ls that patient needs to be on brand name Letairis and if so she asks that PA be resubmitted for brand Letairis. ele phone Encounter - Mindi Irwin MA - 07/26/2018 2:01 PM PDTWe have a current auth [facility] Letairis through the end of this year. Patient can discuss with Dr. Hall at today's appointment and we can submit enrollment forms again if needed. Electronically si gned by Mindi Irwin MA at 07/26/2018 3:21 PM PDTTelephone Encounter - Alma Delia Mann - 07/26/2018 12:03 PM PDTGloria with [facility] called again to inform us that patient would like to switch from generic to Letaris. Prior authorization will be required before ata derek her enrollment with program. If more info is needed, please call Navya at [phone] [id number] signed by Ellen Mann at 07/26/2018 12:05 PM PDTTelephone Encounter - Saniya Mcmillan - 07/23/19 19 10:45 AM PDTGloriad from [facility] called to inform Dr. Hall that Gema would like to switc h to Letairis from generic, Ambrisentan.Electronically signed by Saniya Mcmillan at 019 10:48 AM PDTdocumented in this encounter Plan of Treatment Not on filedocumented as of this encounter Visit Diagnoses Not on filedocumented in this encounter"
--- OUTSIDE RECORDS SUMMARY | ~2019-10-23 | XMS | Encounter Summary ---
Demographics + + + | Address | [address] | | | [place] [address] | + + + | Home Phone [...] + + + | Author | [facility] | + + + | Organization | [facility] | + + + | [...] Team Providers + +------+ + | Care Ceramics Test Engineer Name | Role | Phone | + [...] + + + + | 11/14/ | Hospital | [address] | Harpal Simon, | | | 2019 - | Encounter | [address] | [address] | | | | | [facility] | [facility] | | | 11/19/ | | [place], [place] | [place], [place] | | | 2018 | | [address] | [address] | | | | | [phone] | [phone] | | | | | | | | | | | | Lawrence Aguilar MD | | | | | | [address] | | | | | | [facility], | | | | | | [place] [address] | | | | | | [phone] | | | | | | | | | | | | Divya, | | | | | | Cody Banks MD | | | | | | [address] | | | | | | [place] [facility] | | | | | | [place] [address] | | | | | | [phone] | | | | | | | [...] + + + | Blood Pressure | 96/57 | 11/19/2018 12:34 AM | | | | | PDT | | + + + + + | Pulse | 84 | 11/19/2018 12:34 AM | | | | | PDT | | + + + + + | Temperature | 36.4 C (97.5 F) | 11/18/2018 10:59 PM | | | | | PDT | | + + + + + | Respiratory Rate | 19 | 11/18/2018 10:59 PM | | | | | PDT | | + + + + + | Oxygen Saturation | 89% | 11/19/2018 12:34 AM | | | | | PDT | | + + + + + | Inhaled Oxygen | - | - | | | Concentration | | | | + + + + + | Weight | 88.3 kg (194 lb 10.7 | 11/18/2018 6:20 AM | | | | oz) | PDT | | + + + + + | Height | 162.6 cm (5' 4") | 11/14/2018 7:48 PM | | | | | PDT | | + + + + + | Body Mass Index | 33.41 | 11/14/2018 7:48 PM | | | [...] documented as of this encounter Discharge Summaries Yenni Johnson MD - 11/18/2018 7:58 AM PDT INPATIENT PHYSICIAN DISCHARGE SUMMARY Discharging Provider: Yenni Johnson MD Attending Physician: Cody Stokes, * Hospital Stay: 4 day(s) PCP: Bobbi Jenkins NP Admission Date: 11/14/2018 Discharge Date: 11/18/2018 Principal Diagnosis: Acute decompensated right heart failure due to pulmonary hypertension Additional diagnoses: Patients Hospital Problem List: Active Hospital Problems 1) Ulcerative colitis (HCC) 2) Reactive airway disease 3) 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) 4) Chest pain of uncertain etiology 5) Heart failure with acute decompensation, type unknown Reason for Admission: Gema Barron is a 53 year old woman with history of WHO Group I pulmonary hypertension who was previously admitted to OSH on 11/07 for ~30 lb weight gain, dyspnea on exertion, and chest pain secondary to acute decompensated right heart failure, then transferred to [facility] on 11/14 for ongoing diuresis and management of her symptomatic pulmonary hypertension in the s etting of acute kidney injury and hyponatremia. Hospital course by problem: # WHO Group I Pulmonary Arterial Hypertension # Acute decompensated right heart failure She was initially admitted to outside hospital on 11/07 for acute decompensated right heart failure with ~30 lb weight gain, dyspnea on exertion, and chest pain. Negative troponin x 3 and EKGs reassuring against acute coronary syndrome, negative D-dimer x 2 reassuring agains t pulmonary embolism. She was transferred to [facility] CVICU on 11/14 and then to the medicine [facility] on 11/15 for ongoing diuresis and management of her symptomatic pulmonary hypertension. She underwent TTE on 11/15 which demonstrated RVSP = 41.4 mmHg, significantly improved janeen red to 97 mmHg on 10/12. Previous right heart catheterization in 03/2017 demonstrated mean PA of 46mmHg. She was aggressively diuresed throughout her hospitalization with good urine o utput (net negative ~7 liters) and clinical improvement in volume status (her hypervolemia p rimarily manifests as abdominal distention which significantly improved). Pulmonology ultim ately did not recommend repeat right heart catheterization given improvement in RVSP on TTE and it was felt that it would not be of additional diagnostic or therapeutic yield given heri t her treatment goals are primarily symptom relief. Notably she did develop a new oxygen re quirement during her hospitalization likely in the setting of hypoxia that is multifactorial in pulmonary hypertension. Upon discharge she reported new chest pain and dry cough. Repe at troponin negative, EKG without concerning findings for ischemia, chest x-ray negative for consolidation. It was felt that she may have been over diuresed slightly and decision was made to restart her prior home torsemide 40mg BID at discharge. She will follow up with pul monology and PCP on outpatient basis for close follow up on volume status, renal function, a nd electrolytes. - Restart torsemide 40 mg BID (prior home regimen) - Start potassium 40 meq daily - Continuesildenafil 20 mg TID - Continue mg daily - Discharged on home oxygen - Follow up with pulmonology Dr. Kate Hatfield on 11/22/2018 - Follow up with PCP Bobbi Jenkins NP in 2 weeks for lab checks # Acute kidney injury # Hyponatremia Likely etiology is prerenal, cardiorenal in the setting of her symptomatic pulmonary hypert ension and aggressive diuresis. Her sodium was stable at 134 throughout her hospital course and she was asymptomatic. Creatinine peaked at 1.68 on 11/17 in the setting of aggressive diuresis. Her creatinine is 1.46 on discharge (baseline appears to be ~1). Expect creatini ne to improve with less aggressive diuresis and she will be followed closely on outpatient b asis. - Follow up with pulmonology Dr. Kate Hatfield on 11/22/2018 - Follow up with PCP Bobbi Jenkins NP in 2 weeks for lab checks # ?History of Ulcerative Colitis vs. Crohn's disease Patient reports she was diagnosed with inflammatory bowel disease in 1994 but biopsies at t hat time were not definitive for ulcerative colitis vs Crohn's diease. She reports she has been on steroids and sulfasalazine in the past but her symptoms have been well managed with diet alone over the past 10 years. No new issues with her current admission. Procedures & studies: TTE on 11/15/2018: Final Impressions: 1. The left ventricular size is normal. 2. The LV function is normal. 3. Mildly-moderately reduced LV stroke volume, with estimated SVI of 25 mL/m^2. 4. RV cavity size is moderately enlarged. RV wall thickness is mildly increased. RV global systolic function is moderately reduced. The estimated right ventricular systolic pressure i s mildly elevated (RVSP = 41.4 mmHg). 5. Moderately enlarged right atrium. 6. Compared to the most recent exam dated 10/12/2017, the RV size is smaller and function has improved. There is less TR and estimated RVSP is substantially lower (previously 97 mmHg). Consulting teams: Pulmonology PCP follow-up information: Bobbi Jenkins, SALVAGE DIVER Physical Examination: General: No acute distress, laying in bed comfortably, very pleasant Lungs: Mildly diminished breath sounds in left base, otherwise clear to auscultation throug hout, normal respiratory effort, on 3 L oxymask. Neck: JVP at ~10-11 cm with pushing on abdomen, jugular vein pulse not seen otherwise Cardiovascular: Regular rate and rhythm, no murmurs, rubs, or gallops Abdomen: soft, slight tenderness to palpation in epigastric region, mildly distended but im proved, +BS Extremities: No lower extremity edema Skin: Warm, dry, clear. Neuro: Alert and oriented Current Discharge Medication List: Medication List START taking these medications * RX HOME OXYGEN Per RT * RX CANE ADJUST/FIXED QUAD/3 PRO Adjustable, single point cane * This list has 2 medication(s) that are the same as other medications prescribed for you. Read the directions carefully, and ask your doctor or other care provider to review them wi th you. CHANGE how you take these medications potassium chloride SR 20 mEq Tbtq Commonly known as: KLOR-CON M20 Take 2 tablets by mouth once daily. What changed: See the new instructions. Another medication with the same name was removed. Continue taking this medication, and follow the directions you see here. CONTINUE taking these medications albuterol 90 mcg/actuation Hfaa Commonly known as: PROVENTIL, VENTOLIN Inhale 2 puffs by mouth every four hours as needed (dyspnea). Ambrisentan 10 mg Tab Commonly known as: LETAIRIS Take 1 tablet by mouth once daily. Indications: pulmonary arterial hypertension calcium carbonate-vitamin D3 1,000 mg(2,500 mg)-800 unit Tab Take by mouth once daily. dextromethorphan-guaiFENesin 10-100 mg/5 mL Syrp Commonly known as: ROBITUSSIN DM Take 10 mL by mouth every four hours as needed (cough 2nd line). Indications: Cough fluticasone propionate 50 mcg/actuation Spsn Commonly known as: FLONASE Instill 2 sprays into each nostril two times daily. Indications: sinusitis guaiFENesin 100 mg/5 mL Liqd Commonly known as: ROBITUSSIN Take 5 mL by mouth every four hours as needed. Indications: Cough menthol (sugar free) 5 mg Lozg Commonly known as: COUGH DROP Take 1 lozenge by mouth as needed. Indications: cough NYQUIL ORAL Take by mouth. A few times per month sildenafil 20 mg Tab Commonly known as: REVATIO TAKE 1 TABLET BY MOUTH THREE TIMES DAILY torsemide 20 mg Tab Commonly known as: DEMADEX take 2 tablets by mouth every morning and 1 tablet by mouth EVERY EVENING Follow up: per above Outstanding labs/studies: None Discharge Summary Completed on: 11/18/2018 Discharging Provider: Yenni Johnson MD Discharging Attending: Cody Stokes, * Yenni Johnson MD Public Weigher PGY1 [facility] Pager [phone] [facility] [address] [place] [address] [phone] Associated attestation - Cody Stokes MD - 11/29/2018 3:38 PM PDTGENERAL MEDIC INE ATTENDING DISCHARGE NOTE ADMIT DATE: 11/14/2018 7:41 PM TODAY'S DATE: 11/19/2018 (HOSPITAL DAY 5) I personally interviewed the patient, performed the llamas elements of the physical examinatio n on the day of discharge and have developed an updated Discharge Summary I agree with this discharge summary with the following additions/exceptions. I spent 45 minutes in the discharge of this patient. Greater than 50% of the time was spen t counseling and coordination of care, including patient evaluation, education, medication r econciliation, review with Pulmonary. Cody Stokes MD Place of Service: [facility] Date of Service: 11/20/2018 CSN: [id number] Modifiers: Resident Involved: Yes Suggested CPT: 27515 Discharge Management > 30 minute documented in this encounter Discharge Instructions Discharge Instr - AVS First Page Yenni Johnson MD - 11/18/2018 5:23 PM PDTWho to Owen l: HOW TO REACH YOUR MEDICAL TEAM WITH QUESTIONS, CONCERNS, OR NEW SYMPTOMS: Thank you for e ntrusting your care to [facility] Internal Medicine. If you have any problems or concerns before y ou are able to follow up with your Primary Care Provider, please call and ask the nailhead operator to page the attending physician who was caring for you at discharge. If that p hysician is not available, ask the nailhead operator to page the physician on-call for the [facility]. Discharge Instr - Activity Yenni Johnson MD - 11/18/2018 5:22 PM PDTActivity Instruc tions: No activity restrictions Discharge Instr - Diet Yenni Johnsno MD - 11/18/2018 5:23 PM PDTDiet Type: Modfied d iet- Please restrict your salt intake Fluid restriction: Fluid restriction 2,000 mL- You must restrict the amount of fluids you c onsume, including foods that may become liquid at room temperature (gelatin, ice cream, etc. ). Discharge Instr - Diagnoses Yenni Johnson MD - 11/18/2018 3:35 PM PDTPulmonary hyper tension exacerbation T Discharge Instr - Hospital Course Yenni Johnson MD - 11/18/2018 3:57 PM PDTYou were transferred to [facility] for a severe exacerbation of your pulmonary hypertension. You were very fluid overloaded and needed significant diuresis. You were originally in the ICU but quickly transitioned to the general medicine floor. We transitioned you from IV lasix to torsemide and eventually restarted you on your previous home dose of torsemide 40mg BID per discussion with your pulmonary doctor. Your right heart had very high pressures upon presentation but they quickly returned to near normal after diuresis. You were still requiring some supplemen amanda oxygen during your hospitalization and you will have home oxygen available as well. You weight upon discharge is 194.5 lbs -- you can consider this your new dry weight. We will als o refer you for in-home physical therapy.Electronically signed by Yenni Johnson MD at 1 5:24 PM PDT Discharge Instr - Electronic Signature Yenni Johnson MD - 11/18/2018 5:23 PM PDTAfte r Visit Summary Signature Electronically signed by: Yenni Johnson MD, 11/18/2018 at 5:23 PMElectronically sign ed by Yenni Johnson MD at 11/18/2018 5:23 PM PDT documented in this encounter Medications at Time [...] documented as of this encounter Progress Notes Jose Luis Tineo - 11/17/2018 11:38 AM PDT GENERAL MEDICINE MEDICAL STUDENT PROGRESS NOTE Author: Jose Luis Tineo Attending Physician: Cody Stokes, * Hospital Day: 3 ID: Gema Barron is a 53 year old female 24 Hour Events: - Received IV furosemide 120mg x 3 for diuresis yesterday - Received potassium 260meq total yesterday - Pulmonology yesterday recommended to continue diuresis as is, no need for third agent for pulmonary hypertension at this time, no need for repeat RHC - Had some oxygen saturations down to 87% on 2 L, improved to 95% with increase of oxygen t o 5 L - Had hypotension at 83/53 at 4 AM and morning furosemide temporarily held, blood pressure improved to 105/68 at next check - RT saw her this morning and she qualified for home oxygen Subjective: - Feels breathing has been okay, will get dizzy, lightheaded, and weak with walking - Slight chest pain, similar but significantly improved initial presentation to OSH - States she was previously on torsemide 40mg BID at home, transitioned to torsemide at [facility] as furosemide was no longer effective - Muscle cramps have improved - Continues to feel abdominal distention is improving, only slight epigastric discomfort at this point - Reports diagnosed with IBD in 1994 but biopsy was never able to confirm UC vs Crohns, has been on sulfasalazine and steroids in the past, has been well managed with diet for about 1 0 years - Also notes headache behind both eyes with photophobia that onset this morning, history of migraines but does not feel like migraine other than photophobia. - Needs letter of court appointment tomorrow that she cannot make due to hospitalization Active medications: acetaminophen (TYLENOL) tablet 650 mg, 650 mg, oral, Q6H PRN albuterol (PROVENTIL, VENTOLIN) 90 mcg/actuation inhaler 2 puff, 2 puff, inhalation, Q4H MS N Ambrisentan (LETAIRIS) tablet tab 10 mg, 10 mg, oral, DAILY bisacodyl (DULCOLAX) suppository 10 mg, 10 mg, rectal, DAILY PRN enoxaparin (LOVENOX) injection 40 mg, 40 mg, subcutaneous, QPM HYDROcodone-acetaminophen (NORCO) 5-325 mg tablet 1 tablet, 1 tablet, oral, Q6H PRN polyethylene glycol (MIRALAX) packet 17 g, 17 g, oral, TID PRN potassium chloride SR (K-DUR) tablet 40 mEq, 40 mEq, oral, BID senna-docusate (SENOKOT S) 8.6-50 mg 1 tablet, 1 tablet, oral, BID sildenafil (REVATIO) tablet 20 mg, 20 mg, oral, TID torsemide (DEMADEX) tablet 80 mg, 80 mg, oral, BID ( and ) Physical Examination: Last 24 hour min/max Temp: 36.5 C (97.7 F) Temp Min: 36.3 C (97.3 F) Max: 36.7 C (98.1 F) Pulse: 57 Pulse Min: 57 Max: 108 Resp: 18 Resp Min: 18 Max: 20 BP: 105/68 BP Min: 83/53 Max: 116/80 SpO2: 92 % SpO2 Min: 87 % Max: 100 % Body mass index is 33.34 kg/m. Intake/Output Summary (Last 24 hours) at 11/17/2018 1139 Last data filed at 11/17/2018 1000 Gross per 24 hour Intake 621 ml Output 3050 ml Net -2429 ml General: No acute distress, laying in bed comfortably, very pleasant Lungs: Diminished breath sounds in left base, otherwise clear to auscultation throughout, n ormal respiratory effort, on 3 L oxymask. Neck: JVP at ~10-11 cm with pushing on abdomen, jugular vein pulse not seen otherwise Cardiovascular: Regular rate and rhythm, no murmurs, rubs, or gallops Abdomen: soft, slight tenderness to palpation in epigastric region, mildly distended (sligh tly improved from yesterday), +BS Extremities: No lower extremity edema Skin: Warm, dry, clear. Neuro: Alert and oriented Laboratory: Lab Results Component Value Date NA 134 11/17/2018 K 3.9 11/17/2018 CL 99 11/17/2018 BICARB 30 11/17/2018 BUN 33 11/17/2018 CR 1.39 11/17/2018 GLU 96 11/17/2018 CA 9.8 11/17/2018 AST 37 11/14/2018 ALT 41 11/14/2018 AP 108 11/14/2018 TBILI 0.5 11/14/2018 TP 8.2 11/14/2018 ALB 4.2 11/16/2018 ALB 4.1 11/16/2018 ANIONGAP 5 11/17/2018 ANIONALBCOR 7 11/16/2018 Lab Results Component Value Date MG 2.5 11/17/2018 Lab Results Component Value Date WBC 8.23 11/16/2018 HB 15.1 11/16/2018 HCT 42.3 11/16/2018 PLT 199 11/16/2018 MCV 93.8 11/16/2018 RDW 42.9 11/16/2018 Component Latest Ref Rng & Units 11/16/2018 11/16/2018 6:30 AM 6:30 AM SODIUM CONC URINE mmol/L 23 URINE INTERVAL Random Random URINE VOLUME Spot Spot CREATININE CONC UR mg/dL 57.40 Notably above urine studies were done during diuresis - FeNa = 0.4% Troponin: 0.01 (11/03), 0.02 (11/07), <0.01 (11/13) D-Dimer: 0.46 (11/07), 0.34 (11/13) Micro: None Imaging: Right Heart Catheterization on 03/25/2017: PA: 71/33 mmHg Mean PA: 46 mmHg See procedure note here for full details TTE on 05/23/2018: IMPRESSION: 1. Left ventricular systolic function is hyperdynamic with an estimated EF of >70%. 2. The right ventricle is severely enlarged, but right ventricular systolic function appear s to be normal. 3. The right atrium is markedly enlarged. 4. There is severe pulmonary hypertension. The right ventricular systolic pressure (pulmo nary artery systolic pressure), as measured by Doppler, is 70.6 mm Hg. 5. There are signific ant changes noted, in comparison to the previous echocardiographic study, done 03/13/17, as re ported below. TTE on 11/15/2018: Final Impressions: 1. The left ventricular size is normal. 2. The LV function is normal. 3. Mildly-moderately reduced LV stroke volume, with estimated SVI of 25 mL/m^2. 4. RV cavity size is moderately enlarged. RV wall thickness is mildly increased. RV global systolic function is moderately reduced. The estimated right ventricular systolic pressure i s mildly elevated (RVSP = 41.4 mmHg). 5. Moderately enlarged right atrium. 6. Compared to the most recent exam dated 10/12/2017, the RV size is smaller and function has improved. There is less TR and estimated RVSP is substantially lower (previously 97 mmHg). EKG on 11/16/2018: Reviewed. Sinus with rate 90. Possible right axis deviation. Possible S1Q3T3 pattern observed. Assessment and Plan Gema Barron is a 53 year old woman with history of WHO Group I pulmonary hypertension who was previously admitted to OSH on 11/07 for ~30 lb weight gain, dyspnea on exertion, and chest pain secondary to acute decompensated right heart failure, then transferred to [facility] on 11/14 for ongoing diuresis and management of her symptomatic pulmonary hypertension in the s etting of acute kidney injury and hyponatremia. # WHO Group I Pulmonary Arterial Hypertension She was initially admitted to OSH on 11/07 for acute decompensated right heart failure with ~30 lb weight gain, dyspnea on exertion, and chest pain. Negative troponin x 3 and EKGs jim ssuring against acute coronary syndrome. She was transferred to [facility] CVICU on 11/14 and now our team on 11/15 for ongoing diuresis and management of her symptomatic pulmonary hypertensi on. She had new hypoxia requiring 4 L oxygen upon transfer (not on home oxygen), now down t o 3 L. In the setting of new hypoxia and possible S1Q3T3 pattern on EKG, there was concern for potential pulmonary embolism, though she had negative D-Dimer x 2 at OSH which is reassu ring. Also the S1Q3T3 pattern is only seen in about 10% of pulmonary embolism and she does not have the most common finding of sinus tachycardia. The S1Q3T3 pattern is likely right h eart strain secondary to to her pulmonary arterial hypertension. Her TTE on 11/15 demonstrat ed RVSP = 41.4 mmHg, compared to 70.6 mmHg on previous in 05/2018. Previous right heart cath eterization in 03/2017 demonstrated mean PA of 46 mmHg. She has been aggressively diuresed, yesterday receiving IV furosemide 120mg x 3 net negative 2.4 liters (likely 1-2 liters becau se intake low). It is unclear what her dry weight is, though she states it has ranged about 163-167 lbs at home over the past year. Notably her weights have been 193 lbs (11/14), ?198 lbs (11/15), 193 lbs (11/16), 194 lbs (11/17). Clinically she still appears mildly hypervole ino but significantly improved. Her hypervolemia primarily manifests as abdominal distentio n per patient. Pulmonology has been following and do not recommend repeat right heart shalini terization as would not be of diagnostic or therapeutic value and her treatment goals are pr imarily symptomatic relief as this point. Will plan to transition her from IV furosemide to PO torsemide in anticipation for potential discharge tomorrow. Given her previous home reg imen was torsemide 40mg BID, will trial 80mg BID at first. Continue to monitor potassium an d magnesium and replete as indicated. Continue to monitor for muscle cramps and her headach e this morning likely in setting of diuresis and changing volume status. She should follow up with PCP within 2 weeks of discharge per pulmonology and she has been approved for home o xygen per RT. - IV furosemide 120mg this AM, transition to torsemide 80mg BID starting this evening - Continue sildenafil 20 mg TID, Ambrisentan 10 mg daily - Replete potassium and magnesium - Strict I's and O's - Daily weights - 2 g Na/ 2 L fluid restriction # Acute kidney injury # Hyponatremia Likely etiology is prerenal, cardiorenal in the setting of her symptomatic pulmonary hypert ension and aggressive diuresis. This is further suggested in her FeNa = 0.4%, though these urine studies were done in the setting of aggressive diuresis. Creatinine peaked at 1.52 (1 0/6), today at 1.39 this AM from 1.64 yesterday. Sodium stable at 134 this morning and she is asymptomatic. Continue to monitor for now. - Trend BMP with ongoing diuresis # Reactive airway disease Intermittent use of albuterol at home. - Continue albuterol PRN # ?History of Ulcerative Colitis vs. Crohn's disease Diagnosed with IBD in 1994, biopsy not definitive for UC vs Crohn's. She is not on medicat ions currently for this and this has been well managed with diet for about 10 years per aleksandra ent. Surrogate Decision Maker Primary Surrogate Decision Maker Bobbi Oconnell Sister [phone] CODE: Full The patient was discussed with attending physician, Dr. Cody Stokes, *, who agre es with the above assessment and plan. Jose Luis Tineo, MS3 Associated attestation - Fredo Masters DO - 11/17/2018 8:20 PM PDTAgree with medical studen t note with any exceptions listed in attestation. 53F with history of WHO group I pulmonary HTN, admitted for acute on chronic dyspnea associated with acute decompensated right heart f ailure from underlying WHO group I pulmonary hypertension. Her MICU course was notable for a ggressive diuresis with IV furosemide 120 mg TID and metolazone 2.5 mg with good decompressi on of her R heart notable for decreased RVSP now to 41.4 mm Hg. After discussion with pulmon ology team and clinical improvement, plans are for slow titration down to a reasonable home diuretic regimen with plans for clinic follow-up 11/17/2018. Hospital course has been uneventful with notable event being transitioning to oral diuretic s regimen with goal of disharge at 80 mg torsemide BID for goal net even to net negative. He r ALONDRA likely was prerenal I/s of diuresis and cardiorenal syndrome. Will continue to monitor for signs of worsening renal function. Discharge planning for 11/18/2018 with need for future appointment with PCP in 2 weeks to a ssess renal function and f/u with pulmonology to reevaluate treatment plans for pulmonary HT N. Rest per excellent medical student note. Fredo Masters DO Internal Medicine Resident PGY2 [facility] [employer] pager #[phone] pearl MD - 11/17/2018 9:47 AM PDTFormatting of t his note might be different from the original. FACULTY INPATIENT PROGRESS NOTE GM4 ADMIT DATE: 11/14/2018 7:41 PM TODAY'S DATE: 11/18/2018 (HOSPITAL DAY 4) PCP: Bobbi Jenkins NP I am familiar with Ms. Barron's medical history and the current active problems. I getachew edwards interviewed the patient, performed the llamas elements of the physical examination, and per sonally formulated the assessment and plan with the resident today, ensuring that reasonable and necessary care was provided. Subjective and Interval updates: LISA. Diuresing well. Medications- reviewed Exam: Last 24 hour min/max Temp: 36.5 C (97.7 F) Temp Min: 36.3 C (97.3 F) Max: 36.7 C (98.1 F) Pulse: 57 Pulse Min: 57 Max: 108 Resp: 18 Resp Min: 18 Max: 20 BP: 105/68 BP Min: 83/53 Max: 116/80 SpO2: 92 % SpO2 Min: 87 % Max: 100 % Body mass index is 33.34 kg/m. Intake/Output Summary (Last 24 hours) at 11/17/2018 1139 Last data filed at 11/17/2018 1000 Gross per 24 hour Intake 621 ml Output 3050 ml Net -2429 ml General: comfortable, alert, cooperative and well-appearing; lying in bed in NAD, oxygen ma sk in place Heart and Lung: JVP at 8-10 cm H20; RRR no m/r/g, CTAB; mild decreased BS at L base Abdomen: mild distention, soft NT, +BS Extremities: extremities normal without deformity, no clubbing or cyanosis; no edema Skin: skin color, texture, turgor normal. No rashes or lesions Neuro: moves all extremities, non-focal Psych: bright affect, not apparently anxious or depressed, judgment and insight appropriate in context of visit and apparently normal recent and remote memory Labs/Imaging: Reviewed, notable for K 3.9, creatinine 1.4, Mag 2.5 Impression/Plan: Rosamaria is doing well and we will finish up her diuresis and get her to dry, hopefully by ashwini celestin. Agree with plans to switch to oral Torsemide and monitor oxygenation status. Appreciate help from PHTN team. Cody Stokes MD [facility] [place] Pager [phone] Place of Service: - Date of Service: 11/18/2018 CSN: [id number] Modifiers:GC Resident Involved: Yes Diogenes Broderickjoann woody - 11/16/2018 12:09 PM PDT GENERAL MEDICINE MEDICAL STUDENT PROGRESS NOTE Author: Jose Luis Tineo Attending Physician: Cody Stokes, * Hospital Day: 2 ID: Gema Barron is a 53 year old female 24 Hour Events: - Received IV furosemide 120mg x 3 and metolazone 2.5mg for diuresis - Received potassium 140meq total yesterday - Cardiology consulted and recommended repeat right heart catheterization once euvolemic - Pulmonology consulted and recommended continued diuresis as is, aim for net negative 1-2 liters, no need for third agent for pulmonary hypertension at this time Subjective: - Reports she learned of pulmonary hypertension diagnosis about 1 year ago - Has been tracking her weight diligently at home over the past year, weight usually ranges 163-167 lbs at home - Hypervolemia usually manifests as facial and abdominal swelling/distention with decreased appetite, does not really get lower extremity edema - Feels abdomen is still distended, facial swelling has nearly resolved, has some decreased appetite and epigastric pain (usually occurs with increased abdominal distention) - Feels she is breathing better, now down to 2 L from 4 L of oxygen, has some dizziness wit h walking - Does report muscle cramps that onset around 4 AM this morning - Denies chest pain Active medications: acetaminophen (TYLENOL) tablet 650 mg, 650 mg, oral, Q6H PRN albuterol (PROVENTIL, VENTOLIN) 90 mcg/actuation inhaler 2 puff, 2 puff, inhalation, Q4H MS N Ambrisentan (LETAIRIS) tablet tab 10 mg, 10 mg, oral, DAILY bisacodyl (DULCOLAX) suppository 10 mg, 10 mg, rectal, DAILY PRN enoxaparin (LOVENOX) injection 40 mg, 40 mg, subcutaneous, QPM furosemide (LASIX) IV 120 mg, 120 mg, intravenous, TID HYDROcodone-acetaminophen (NORCO) 5-325 mg tablet 1 tablet, 1 tablet, oral, Q6H PRN polyethylene glycol (MIRALAX) packet 17 g, 17 g, oral, TID PRN senna-docusate (SENOKOT S) 8.6-50 mg 1 tablet, 1 tablet, oral, BID sildenafil (REVATIO) tablet 20 mg, 20 mg, oral, TID Physical Examination: Last 24 hour min/max Temp: 36.6 C (97.9 F) Temp Min: 36.3 C (97.3 F) Max: 37.1 C (98.7 F) Pulse: 79 Pulse Min: 79 Max: 112 Resp: 18 Resp Min: 18 Max: 18 BP: 93/58 BP Min: 90/70 Max: 120/97 SpO2: 90 % SpO2 Min: 90 % Max: 100 % Body mass index is 33.15 kg/m. Intake/Output Summary (Last 24 hours) at 11/16/2018 1209 Last data filed at 11/16/2018 0900 Gross per 24 hour Intake 1038 ml Output 3435 ml Net -2397 ml General: No acute distress, laying in bed comfortably, very pleasant Lungs: Clear to auscultation throughout, normal respiratory effort, on 2 L oxymask. Neck: JVP at ~10-11 cm with pushing on abdomen, jugular vein pulse not seen otherwise Cardiovascular: Regular rate and rhythm, no murmurs, rubs, or gallops Abdomen: soft, mildly tenderness to palpation in epigastric region, mildly distended (uncle ar what her baseline is), +BS Extremities: No lower extremity edema Skin: Warm, dry, clear. Neuro: Alert and oriented Laboratory: Lab Results Component Value Date NA 135 11/16/2018 K 3.2 11/16/2018 CL 98 11/16/2018 BICARB 29 11/16/2018 BUN 36 11/16/2018 CR 1.37 11/16/2018 GLU 105 11/16/2018 CA 9.1 11/16/2018 AST 37 11/14/2018 ALT 41 11/14/2018 AP 108 11/14/2018 TBILI 0.5 11/14/2018 TP 8.2 11/14/2018 ALB 4.2 11/16/2018 ALB 4.1 11/16/2018 ANIONGAP 8 11/16/2018 ANIONALBCOR 7 11/16/2018 Lab Results Component Value Date MG 2.6 11/16/2018 Lab Results Component Value Date WBC 8.23 11/16/2018 HB 15.1 11/16/2018 HCT 42.3 11/16/2018 PLT 199 11/16/2018 MCV 93.8 11/16/2018 RDW 42.9 11/16/2018 Component Latest Ref Rng & Units 11/16/2018 11/16/2018 6:30 AM 6:30 AM SODIUM CONC URINE mmol/L 23 URINE INTERVAL Random Random URINE VOLUME Spot Spot CREATININE CONC UR mg/dL 57.40 Notably above urine studies were done during diuresis - FeNa = 0.4% Troponin: 0.01 (11/03), 0.02 (11/07), <0.01 (11/13) D-Dimer: 0.46 (11/07), 0.34 (11/13) Micro: None Imaging: Right Heart Catheterization on 03/25/2017: PA: 71/33 mmHg Mean PA: 46 mmHg See procedure note here for full details TTE on 05/23/2018: IMPRESSION: 1. Left ventricular systolic function is hyperdynamic with an estimated EF of >70%. 2. The right ventricle is severely enlarged, but right ventricular systolic function appear s to be normal. 3. The right atrium is markedly enlarged. 4. There is severe pulmonary hypertension. The right ventricular systolic pressure (pulmo nary artery systolic pressure), as measured by Doppler, is 70.6 mm Hg. 5. There are signific ant changes noted, in comparison to the previous echocardiographic study, done 03/13/17, as re ported below. TTE on 11/15/2018: Final Impressions: 1. The left ventricular size is normal. 2. The LV function is normal. 3. Mildly-moderately reduced LV stroke volume, with estimated SVI of 25 mL/m^2. 4. RV cavity size is moderately enlarged. RV wall thickness is mildly increased. RV global systolic function is moderately reduced. The estimated right ventricular systolic pressure i s mildly elevated (RVSP = 41.4 mmHg). 5. Moderately enlarged right atrium. 6. Compared to the most recent exam dated 10/12/2017, the RV size is smaller and function has improved. There is less TR and estimated RVSP is substantially lower (previously 97 mmHg). EKG on 11/16/2018: Reviewed. Sinus with rate 90. Possible right axis deviation. Possible S1Q3T3 pattern observed. Assessment and Plan Gema Barron is a 53 year old woman with history of WHO Group I pulmonary hypertension who was previously admitted to OSH on 11/07 for ~30 lb weight gain, dyspnea on exertion, and chest pain secondary to acute decompensated right heart failure, then transferred to [facility] on 11/14 for ongoing diuresis and management of her symptomatic pulmonary hypertension in the s etting of acute kidney injury and hyponatremia. # WHO Group I Pulmonary Arterial Hypertension She was initially admitted to OSH on 11/07 for acute decompensated right heart failure with ~30 lb weight gain, dyspnea on exertion, and chest pain. Negative troponin x 3 and EKGs jim ssuring against acute coronary syndrome. She was transferred to [facility] CVICU on 11/14 and now our team on 11/15 for ongoing diuresis and management of her symptomatic pulmonary hypertensi on. She had new hypoxia requiring 4 L oxygen upon transfer (not on home oxygen), now down t o 2 L. In the setting of new hypoxia and possible S1Q3T3 pattern on EKG, there was concern for potential pulmonary embolism, though she had negative D-Dimer x 2 at OSH which is reassu ring. Also the S1Q3T3 pattern is only seen in about 10% of pulmonary embolism and she does n ot have the most common finding of sinus tachycardia. The S1Q3T3 pattern is likely right he art strain secondary to to her pulmonary arterial hypertension. Her TTE yesterday demonstra derek RVSP = 41.4 mmHg, compared to 70.6 mmHg on previous in 05/2018. Previous right heart cat heterization in 03/2017 demonstrated mean PA of 46 mmHg. She has been aggressively diuresed, yesterday receiving IV furosemide 120mg x 3 and metolazone 2.5mg with net negative 2.5 lite rs. It is unclear what her dry weight is, though she states it has ranged about 163-167 lbs at home over the past year. Notably her weights have been 193 lbs (11/14), ?198 lbs (11/15), 193 lbs (11/16). Clinically she still appears hypervolemic but improving. Her hypervolemia primarily manifests as abdominal distention per patient. Cardiology and pulmonology have b een following. Cardiology recommends repeat right heart catheterization pending diuresis an d euvolemia. Pulmonology recommends to continue diuresis as is, aim for net negative 1-2 li ters, no need for third agent for pulmonary hypertension at this time. Will plan for repeat IV furosemide 120mg TID today and will hold metolazone due to concern for hypokalemia. Con tinue to monitor potassium and magnesium and replete as indicated. Her muscle cramps this A M were likely related to potassium of 3.2. - IV furosemide 120mg TID today, hold metolazone - Continue sildenafil 20 mg TID, Ambrisentan 10 mg daily - Replete potassium and magnesium - Strict I's and O's - Daily weights - 2 g Na/ 2 L fluid restriction # Acute kidney injury # Hyponatremia Likely etiology is prerenal, cardiorenal in the setting of her symptomatic pulmonary hypert ension and aggressive diuresis. This is further suggested in her FeNa = 0.4%, though these urine studies were done in the setting of aggressive diuresis. Creatinine peaked at 1.52 (1 0/6), today at 1.37 from 1.26 yesterday. Sodium stable at 135 this morning and she is asymp tomatic. Continue to monitor for now. - Trend BMP with ongoing diuresis # Reactive airway disease Intermittent use of albuterol at home. - Continue albuterol PRN # ?History of Ulcerative Colitis vs. Crohn's disease Unclear of diagnosis, will clarify with patient. She is not on medications currently for t his. Surrogate Decision Maker Primary Surrogate Decision Maker Bobbi Oconnell Sister [phone] CODE: Full The patient was discussed with attending physician, Dr. Cody Stokes, *, who agre es with the above assessment and plan. Jose Luis Tineo, MS3 Associated attestation - Fredo Masters DO - 11/16/2018 7:30 PM PDTAgree with medical studen t note with any exceptions listed in attestation. 53F with history of WHO group I pulmonary HTN, admitted for acute on chronic dyspnea associated with acute decompensated right heart f ailure from underlying WHO group I pulmonary hypertension. Her MICU cours was notable for ag gressive diuresis with IV furosemide 120 mg TID and metolazone 2.5 mg with good decompressio n of her R heart notable for decreased RVSP now to 41.4 mm Hg. After discussion with pulmono logy team and clinical improvement, plans are for slow titration down to a reasonable home d iuretic regimen with plans for clinic follow-up 11/17/2018. Upon discussion with pulmonology, feel that RHC will not be of additional diagnostic or the rapeutic yield given that treatment goals are titrated primarily to her symptomatic relief a nd decongestion and not tailored towards objective hemodynamic parameters that will be obtai liz on RHC. Her dypsnea appears to be somewhat out of proportion to her underlying physiolog y however reassuringly with negative D-dimer and without additional concern for thrombotic p henomena. Suspect sensation of dyspnea is partly subjective but regardless will require coor dination with RT to get a home O2 evaluation for discharge planning. Rest per excellent medical student note. Fredo Masters DO Internal Medicine Resident PGY2 [facility] pager #[phone] Miguel Do MD - 11/15/2018 3:29 PM PDTFormatting of this note might be differe nt from the original. Cardiovascular Intensive Care Unit Attending Progress Note CVICU D2 Assigned #[id number] ICU Admission Reason Most Recent Value ICU Admission reason concern for right heart failure in setting of pulmoary HTN filed at 1 1023 Hospital admission dx: pulmonary HTN Days in ICU 1 Days in Hospital Abbreviated HPI / Daily Assessment Gema Barron is a 52 y.o. female with WHO Group I pulmonary arterial hypertension transf erred from an OSH in [place] for management of severe, symptomatic PH. She was transferred from OSH to [facility] CVICU due to concern for right heart failure and potential cardiogenic jennifer ck. She has been aggressively diuresed with improving chest pressure and SOB. Medical Decision Making Acute decompensated systolic RV failure in setting of PAH. Diuresing well with more aggres sive diuretics. Plan: - PRN analgesia - Continue forced diuresis with lasix + metolazone - Diet - Cardiology consult for RHC - when euvolemic - TTE - DVT PPX - Home PAH medication Appropriate for [place] transfer Hospital Problems Priority POA Cardiovascular 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) Yes Heart failure with acute decompensation, type unknown Unknown Respiratory/Chest Reactive airway disease Yes Digestive Ulcerative colitis (HCC) Yes Other Chest pain of uncertain etiology Yes Service Critical Care Medicine [1017] Admitting provider and ICU treatment team members Provider Role Specialty Pager Harpal Simon MD Admitting Provider Pulmonary Disease 66429 Code Status Code Status Full Code I have spent a total of 10 minutes in the direct care and management of this patient indepe ndent of any time spent teaching or performing any separately billable procedures. I reviewe d the documented findings, all data and the recent imaging available. Greater than 50% of th is time was spent on counseling and coordination of care. I saw and evaluated the patient at the bedside together with Dr. Gray.Please see their note for details. I agree with e assessment and plan as described in the resident's note with the following exceptions/jalen tions as noted. Date of Service: 11/15/2018 [facility] DEPARTMENT: ANE ICU CARDIAC Place of Service:- Inpatient CSN: [id number] Suggested Modifier: GC - Resident Involved Suggested CPT: TO CONCRETE BUCKET HOOKER Author:MIGUEL DO MD [address] [id number] signed by Miguel Do MD at 11/15/2018 3:3 0 PM PDTWMiguel rueda MD - 11/15/2018 3:17 PM PDT Cardiovascular Intensive Care Unit Attending Progress Note CVICU D2 Assigned #[id number] ICU Admission Reason Most Recent Value ICU Admission reason concern for right heart failure in setting of pulmoary HTN filed at 1 1023 Hospital admission dx: pulmonary HTN Days in ICU 1 Days in Hospital Abbreviated HPI / Daily Assessment Gema Barron is a 52 y.o. female with WHO Group I pulmonary arterial hypertension transf erred from an OSH in [place] for management of severe, symptomatic PH. She was transferred from OSH to [facility] CVICU due to concern for right heart failure and potential cardiogenic jennifer ck. She has been aggressively diuresed with improving chest pressure and SOB. Medical Decision Making Acute decompensated systolic RV failure in setting of PAH. Diuresing well with more aggres sive diuretics. Plan: - PRN analgesia - Continue forced diuresis with lasix + metolazone - Diet - Cardiology consult for RHC - when euvolemic - TTE - DVT PPX - Home PAH medication Appropriate for [place] transfer Hospital Problems Priority POA Cardiovascular 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) Yes Heart failure with acute decompensation, type unknown Unknown Respiratory/Chest Reactive airway disease Yes Digestive Ulcerative colitis (HCC) Yes Other Chest pain of uncertain etiology Yes Service Critical Care Medicine [1017] Admitting provider and ICU treatment team members Provider Role Specialty Pager Harpal Simon MD Admitting Provider Pulmonary Disease 20181 Code Status Code Status Full Code I have spent a total of 10 minutes in the direct care and management of this patient indepe ndent of any time spent teaching or performing any separately billable procedures. I reviewe d the documented findings, all data and the recent imaging available. Greater than 50% of is time was spent on counseling and coordination of care. I saw and evaluated the patient at the bedside together with Dr. Gray.Please see their note for details. I agree with e assessment and plan as described in the resident's note with the following exceptions/jalen tions as noted. Date of Service: 11/15/2018 [facility] DEPARTMENT: ANE ICU CARDIAC Place of Service:- Inpatient CSN: [id number] Suggested Modifier: GC - Resident Involved Suggested CPT: TO CONCRETE BUCKET HOOKER Author:MIGUEL DO MD [address] [address] [place] [id number] signed by Miguel Do MD at 11/15/2018 3:1 8 PM Elijah Rosas MD - 11/15/2018 10:53 AM PDTFormatting of this note might be dif ferent from the original. Cardiovascular Intensive Care Unit Team Progress Note CVICU D2 Assigned #[id number] ICU Admission Reason Most Recent Value ICU Admission reason concern for right heart failure in setting of pulmoary HTN filed at 1 1023 Admission dx: pulmonary HTN Days in ICU 1 Days in Hospital Abbreviated HPI / Daily Assessment Gema Barron is a 52 y.o. female with WHO Group I pulmonary arterial hypertension transf erred from an OSH in [place] for management of severe, symptomatic PH. She was transferred from OSH to [facility] CVICU due to concern for right heart failure and potential cardiogenic jennifer ck. She has been aggressively diuresed with improving chest pressure and SOB. 24 Hour events 11/15 Admitted to CVICU on 11/14 Aggressive diuresis, given 200 mg IV lasix and 250 mg Diuril, robust response outputting ~1.8L urine Code Status Code Status Full Code Active Diagnosis with Assessment & Plan Priority Class POA Cardiovascular 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) Yes Current Assessment & Plan Secondary to group I PAH. Clinical history suggests worsening decompensation and she may be nearing indication for a third agent. Given that she is warm, mentating well and with sta ble VS, will proceed with more aggressive diuresis and defer placing PA catheter pending res ponse. Prior RHC was not completed in her Mar 2017 admission (only RV pressures recorded), s o may be worthwhile to place a PA catheter or get RHC this admission. Initially given 200mg lasix with 1g diuril. NT-proBNP WNL. - CTM urine output - f/u TTE results - consult cardiology for right heart cath when euvolemic, for workup for potential third ag ent for Pulmonary HTN - Maintain schulte - Replace K and Mg as needed - Cont sildenafil 20mg tid - Cont ambresentan, or formulary equivalent - Cont discussion about more advanced PH therapies pending response Heart failure with acute decompensation, type unknown Unknown Respiratory/Chest Reactive airway disease Yes Current Assessment & Plan -Cont home albuterol prn Digestive Ulcerative colitis (HCC) Yes Overview Overview: IMO Problem List Replacement - 2017_Regulatory_1 Current Assessment & Plan Not on active therapy, not currently with significant symptoms. She reports that prn mus tard is sufficient to control her flares. -OK for mustard as needed Other Chest pain of uncertain etiology Yes Current Assessment & Plan Likely secondary to RV strain. Troponins negative at OSH and EKG without ischemic changes here. CXR unremarkable. -Cont to monitor Code Status: FULL Physical Exam Constitutional: She appears well-developed and well-nourished HENT: Head:normocephalic and atraumatic Nose: nose normal Eyes: EOM normal and conjunctivae normal pupils are equal, round, and reactive to light Neck: normal range of motion Cardiovascular: normal rate, regular rhythm, normal heart sounds and intact distal pulses n o murmur heard. Pulmonary: effort normal and breath sounds normal. She has no wheezes No respiratory distre ss. Abdominal: Abdomen is soft. There is no tenderness She exhibits distention. bowel sounds are normal. Musculoskeletal: She exhibits edema.She exhibits no tenderness.Trace pretibial edema Neurological: She is alert and oriented to person, place, and time.No cranial nerve deficit . Skin: Skin is warm. No erythema. Psychiatric: She has a normal mood and affect. Service Critical Care Medicine [1017] Admitting provider and ICU treatment team members Provider Role Specialty Pager Harpal Simon MD Admitting Provider Pulmonary Disease 71648 Quality section Schulte necessity reviewed: Hourly/Accurate measurement of urinary output for clinical manage ment of critically ill patients FAST HUG Feeding: regular Analgesia: NI Sedation: NI Thromboprophylaxis: Lovenox Head of Bed: ad doreen Ulcer Prophylaxis: not clinically indicated Glycemic Control: not indicated Created by Elijah Gray MD Author:Elijah Gray MD [address] [id number] signed by Elijah Gray MD at 11/15/2018 10:56 A M Stephen Bryant - 11/15/2018 9:41 AM PDTTransthoracic echocardiogram completed. Final rep ort to follow. Lawrence Bolivar MD - 2018 8:41 PM PDT Cardiovascular Intensive Care Unit Attending Progress Note CVICU D1 Assigned #[id number] 53 y.o. female c PH Group I on v/d - ARIZMENDI & W/G - OSH - Diuresis failure - Tx here Interval Events Looks well Warm and well-perfused Assessment Hypoxemia Volume overload PAH c Cor pulmonale Plan Wean O2 Home pulmonary v/d Case d/w Dr Benjamin. Given patient is not in shock and renal function not far from baseline, w ill plan to hold off on PAC and attempt diuresis again. If fails diuresis, plan for PAC then with likely initiation of third v/d. TTE in am Diuresis challenge - lasix + diuril ADAT LMWH PPx Schulte I spent 35 minutes, not including procedures, in the care and management of this patient wh o is critically ill. Patient was seen with CVICU Team. I reviewed the relevant findings, me dications, data, and imaging. Please see provider note for additional details. Medications Scheduled Medication Dose/Rate, Route, Frequency Last Action enoxaparin (LOVENOX) injection 40 mg 40 mg, subQ, QPM Ordered senna-docusate (SENOKOT S) 8.6-50 mg 1 tablet 1 tablet, oral, BID Ordered PRN Medication Dose/Rate, Route, Frequency Last Action bisacodyl (DULCOLAX) suppository 10 mg 10 mg, rect, DAILY PRN Ordered polyethylene glycol (MIRALAX) packet 34 g 34 g, oral, TID PRN Ordered Patients Hospital Problem List: Active Hospital Problems * No active hospital problems. * documented in this en counter H&P Notes Sagar Estrella MD - 11/15/2018 7:58 PM PDTFormatting of this note might be different from t he original. General Medicine Bore Mill Operator Admit Note Date: 11/15/18 PCP: Bobbi Jenkins NP Author: Sagar Estrella MD Attending Physician: Lawrence Aguilar MD HPI: Gema Barron is a 53 y.o. female with WHO Group I pHTN who was initially admitted to [facility] CVICU for management of severe, symptomatic PH. Briefly, the patient presented at OSH with volume overload. She reported a 30 lb weight ga in, worsening ARIZMENDI and intermittent chest pain. She noted no history of connective tissue dis eases, HIV infection, family history of PH She has a distant history of methamphetamine use but none she says in the last 12 years At OSH, 11/07 admission workup for ACS was negative, and CXR showed no acute abnormalities. A diuresis regiment was initiated at OSH, but patient had an elevation in Scr, which prompt ed transfer to [facility] for further evaluation and therapies. At CVICU, on HD1 patient was given 200 mg Lasix and diuril and continued on home pHTN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 htly net negative before discharge home. Recommendations: - Would get troponin and EKG as you are doing given her new chest pain - She is coughing more this AM, would recommend a CXR - Given elevated bicarb, bump in Cr, and given that she has been diuresed > 7L net negative , would resume her home torsemide dose of 40mg PO BID for now. If she is a little positive f or a few days, that is ok. I can reassess her volume status in clinic on Wednesday and as needed. - No RHC for now - Continue to supp K as you are doing, she will likely need supplemental K at home - No third agent for PH right now - Keep Letaris and Sildenafil as is - Discharge home with supp O2 - I have made an appointment for her with me on 11/22 - walk test at 3:30pm, clinic visit a t 4pm. I have let her know but please remind her before she is discharged - She will need close follow up with her PCP when she leaves to monitor her Cr - please alexy rodriguez sure she has an appointment with her PCP in [place] 2 weeks after discharge for lab chec ks (Cr check, K check) - The pulm consult team is aware, please feel free to contact us if any questions - Discussed recs with primary team Kate Benjamin MD [facility] PULMON[facility] & [facility]ITICAL [facility] MEDICINE AT [facility] Mailbox Code: [id number] [address] [place] [address] Clinic phone number: [phone] Clinic fax number: [phone] BILLING As of 11/18/18, Gema Barron requires hospitalization due to the above issues that acti vely impair one or more organ systems such that there is a significant risk of deterioration in their condition and/or if they were to be discharged. I spent a total of 36 minute s providing hospital care to this patient 11/18/18. This time was exclusive of separately bi llable procedures. sui, Kate Amato MD - 11/17/2018 4:09 PM PDT Attending Pulmonary Consult Follow Up Note Date: 11/17/2018 Primary care provider: Eve Daugherty MD [address] [place] [address] Referring provider: Sue Contreras MD [facility] [address] [facility] [address] [place] [address] Reason for consult: Pulmonary Hypertension S/I: She reports feeling much better. Her chest pain and her abd pain has improved. She arizmendi s report occasional mild dizziness when she gets up quickly. Currently on 2L NC with sats in the 90s O2 requirements have decreased from 4L to 2L Is and Os: Overall, she is -6.4L since her admission BP 105/68 (BP Location: Left upper arm, Patient Position: Lying on back) | Pulse 57 | Tem p 36.5 C (97.7 F) (Oral) | Resp 18 | Ht 1.626 m (5' 4") | Wt 88.1 kg (194 lb 3.6 oz) | SpO2 92% | BMI 33.34 kg/m | BSA 1.99 m Currently on 2L NC this AM On exam, she is warm and well perfused No JVP, hepatojugular reflux is negative RRR, aud s1 and s2, no appreciable murmurs Lungs are CTAB, no rhonchi, no wheezing Abd is soft, NT, ND, +BS No LE edema Labs: Reviewed, significant for: Cr 1.39 (slightly up from 1.25 on admission, down from 1.64) K 3.9 TTE: Final Impressions: 1. The left ventricular size [...] RVSP is substantially lower (previously 97 mmHg). Consultation Findings: Gema is a 53yo woman with a history of WHO Group 1 PH admitted wit h several weeks of increased SOB, chest pain, and decreased UOP Currently remains HD stable. Her repeat TTE is substantially improved, with improvement in her RV size and function as well as significant improvement in her RVSP. At this time, would not proceed with a RHC - given improvement in her echocardiogram on tran denafil and letaris, I do not think we need to add a third agent at this time. Symptoms appear to have improved with diuresis. Would switch her to orals today and make gentile re that she is even to slightly net negative on an oral regimen (she had been on torsemide 4 0mg PO BID previously) Recommendations: - Would switch to PO today and monitor UOP - goal is even to slightly net negative (beny de is fine) - No RHC for now - Continue to supp K as you are doing - No third agent for PH right now - Keep Letaris and Sildenafil as is - She may need supp O2 at home as an outpatient - please get a home O2 evaluation (this may have been what prompted her admission - she told me she was having trouble with getting O2 as an outpatient) - For discharge, I will plan to have her come back and see me in 2-3 weeks (I will send a m essage to our schedulers) - She will need close follow up with her PCP when she leaves to monitor her Cr - please alexy rodriguez sure she has an appointment with her PCP in [place] 2 weeks after discharge for lab chec ks (Cr check, K check) - The pulm consult team is aware, please feel free to contact us if any questions - Discussed recs with primary team Kate Benjamin MD [facility] PULMON[facility] & [facility]ICAL [facility]ARE [facility]ICINE AT [facility] Mailbox Code: [id number] [id number] [place] [address] Clinic phone number: [phone] Clinic fax number: [phone] BILLING As of 11/17/18, Gema Barron requires hospitalization due to the above issues that acti vely impair one or more organ systems such that there is a significant risk of deterioration in their condition and/or if they were to be discharged. I spent a total of 34 minute s providing hospital care to this patient 11/17/18. This time was exclusive of separately bi llable procedures. sui, Kate Amato MD - 11/16/2018 10:46 AM PDT Attending Pulmonary Consult Follow Up Note Date: 11/16/2018 Primary care provider: Eve Daugherty MD [address] [place] [address] Referring provider: Sue Contreras MD [facility] [address] [facility] [address] [facility] [address] [place] [address] Reason for consult: Pulmonary Hypertension S/I: Overall, she reports that she is feeling better, she feels like her abd is less swolle n and tense. She also reports her chest pain is improved (although when she hyperventilates she still feels is). O2 requirements have decreased from 4L to 2L Is and Os: Overall, she is -3.7L since her admission BP 93/58 (BP Location: Left upper arm, Patient Position: Lying on back;Lying left side) | Pulse 79 | Temp 36.6 C (97.9 F) (Oral) | Resp 18 | Ht 1.626 m (5' 4") | Wt 87.6 kg ( 193 lb 2 oz) | SpO2 90% | BMI 33.15 kg/m | BSA 1.99 m Currently on 2L oxymask On exam, she is warm and well perfused No JVP, hepatojugular reflux is negative RRR, aud s1 and s2, no appreciable murmurs Lungs are CTAB, no rhonchi, no wheezing Abd is soft, NT, ND, +BS Trace LE edema Labs: Reviewed, significant for: Cr 1.37 (slightly up from 1.25 on admission) K 3.2 TTE: Final Impressions: 1. The left ventricular size [...] RVSP is substantially lower (previously 97 mmHg). Consultation Findings: Gema is a 53yo woman with a history of WHO Group 1 PH admitted wit h several weeks of increased SOB, chest pain, and decreased UOP Currently remains HD stable. Her repeat TTE is substantially improved, with improvement in her RV size and function as well as significant improvement in her RVSP. At this time, would not proceed with a RHC - given improvement in her echocardiogram on tran denafil and letaris, I do not think we need to add a third agent at this time. Not clear why she became so symptomatic with improvement overall in her RV size and functio n. This improvement could reflect her recent diuresis but I suspect that she had had improve ment in her function since starting PH-specific therapy (and her continued abstinence from m eth). Thus, I wonder if her current symptoms are due to fluid overload or something else as she currently doesn't have signs of visible fluid overload including a normal NT-proBNP, no LE edema, her JVP is not elevated. Recommendations: - Continue diuresis, would be less aggressive today, try to take off 500 to 1000cc net nega tive - Switch to PO tomorrow if possible (torsemide is fine) - make sure she can be at least trae n to slightly negative with POs - No RHC for now - Continue to supp K as you are doing - No third agent for PH right now - Keep Letaris and Sildenafil as is - She may need supp O2 at home as an outpatient - please get a home O2 evaluation (this may have been what prompted her admission - she told me she was having trouble with getting O2 as an outpatient) - For discharge, she has an appointment with me tomorrow in the afternoon. If she is discha rged tomorrow, I will plan to see her clinic before she goes home. If not, I will plan to ma ke an appointment for her with me in 2-3 weeks - She will need close follow up with her PCP when she leaves to monitor her Cr - please alexy e sure she has an appointment with her PCP in [place] 2 weeks after discharge for lab chec ks (Cr check, K check) - The pulm consult team is aware, please feel free to contact us if any questions Kate Benjamin MD [facility] PULMON[facility] & [facility]ITICAL CARE MEDICINE AT [facility] Mailbox Code: [id number] [address] [place] [address] Clinic phone number: [phone] Clinic fax number: [phone] BILLING As of 11/16/18, Gema Barron requires hospitalization due to the above issues that acti vely impair one or more organ systems such that there is a significant risk of deterioration in their condition and/or if they were to be discharged. I spent a total of 36 minute s providing hospital care to this patient 11/15/18. This time was exclusive of separately bi llable procedures. Gary, Kate Amato MD - 11/15/2018 9:28 AM PDT Attending Pulmonary Consult Note Date: 11/15/2018 Primary care provider: Eve Daugherty MD [address] [address] Referring provider: Sue Contreras MD [facility] [address] [place] [address] [place] [address] Reason for consult: Pulmonary Hypertension HPI: Ms. Barron is a 52yo woman, she is followed in PH clinic as an outpatient (I have nev er seen her, she was seen by Dr. Hall in 2018). 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 She reports being abstinent from meth for 10 years and drug screens in clinic have been negative. She is currently on dual therapy for her PH - sildenafil TID and Letaris. She reports that she often only takes two doses of her sildenafil, she does take her Letaris every day and irene s only missed one or two doses since starting it. Over the past month, she has noted increasing swelling in her abdomen and has noted that he r diuretics do not seem as effective as they have been in the past. Last week, she went to [facility] ED [facility] for increased swelling, decreased UOP, and also chest pain. She was ev aluated in the ED, given one dose of an IV diuretic, and then sent home with 80mg of Torsemi de BID PO (her usual dose is 40mg PO BID). She reported that even with the increased dose of Torsemide, she was still not making much UOP. She called our office, I discussed with her, and felt that she needed a more aggressive diuresis, and sent her back to her local ED. She was admitted for inpatient diuresis on 11/07. I discussed her case with the hospitalists and encouraged them to diurese her aggressively. I was then called by another hospitalist and he was concerned that diuresis was not working and was limited by both her Cr and her occasion al hypotension. Given concern for cardiogenic shock, I requested transfer to [facility] to the [facility]. At the [facility], she received lasix up to 80mg IV BID with diuril but this was reduced due to ri sing Cr. Cr on admit was 1, peaked at 1.5, and prior to transfer was 1.2. From talking to he r and looking at the records, she was diuresed maybe 1-2 L total. Work up for ACS was negati ve, CXR was clear. She was on 4-6L NC to keep sats > 95%. Overnight, she was admitted to the CVICU and started on aggressive diuresis (lasix 200mg IV , diuril 250mg IV) and she put out 2L of urine, currently, she is net negative -1.6L This AM, she reports that her chest pressure has improved, she feels that she can breath mo re easily. Her abd feels less tight and in general, she reports that she feels better. She i s currently on 4L oxymask and sats are 95% or above. 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/2017 Osteoarthritis Reactive airway disease Seasonal allergies Ulcerative colitis (HCC) Von Willebrand disease (HCC) Past Surgical History: Past Surgical History Procedure Laterality Date Right heart catheterization Right 03/22/2017 PAP 71/33 mPAP 46 PCWP 10 PVR 16 CO 2.3 L/m CI 1.24 Colonoscopy 1999 Tuboplasty for tubal ligation reversal 1994 Ct angiography chest w/ + w/o contrast 03/22/2017 Neg for PE, breast nodule --> needs f/u Ct angiography chest w/ + w/o contrast 05/22/2018 Neg for PE Medications: Current Facility-Administered Medications Medication Dose Route Frequency Provider Last Rate Last Dose albuterol (PROVENTIL, VENTOLIN) 90 mcg/actuation inhaler 2 puff 2 puff inhalation Q4H PRN Harpal Simon MD Ambrisentan (LETAIRIS) tablet tab 10 mg 10 mg oral DAILY Mykel Kwon MD bisacodyl (DULCOLAX) suppository 10 mg 10 mg rectal DAILY PRN Mykel Kwon MD enoxaparin (LOVENOX) injection 40 mg 40 mg subcutaneous QPM Mykel Kwon MD polyethylene glycol (MIRALAX) packet 17 g 17 g oral TID PRN Cody Cheung MD senna-docusate (SENOKOT S) 8.6-50 mg 1 tablet 1 tablet oral BID Mykel Kwon MD 1 tablet at 11/14/182116 sildenafil (REVATIO) tablet 20 mg 20 mg oral TID Mykel Kwon MD 20 mg at 2117 Allergies: Morphine and Spironolactone Social History: The patient is single and lives in [place], [place]. -Tobacco history: Social History Tobacco Use Smoking Status Never Smoker Smokeless Tobacco Never Used Family History: Family History Problem Relation Dementia Mother Multiple [...] Pulmonary: As indicated in HPI section Cardiovascular: As indicated in the HPI section Gastrointestinal: No abdominal or flank pain, anorexia, [...] abnormal bleeding or enlarged lymph n odes. Physical Exam: BP 99/76 (BP Location: Right upper arm, Patient Position: Lying left side) | Pulse 91 | Temp 36.5 C (97.7 F) (Oral) | Ht 1.626 m (5' 4") | Wt 89.9 kg (198 lb 3. 1 oz) Comment: Question if this weight is correct | SpO2 94% | BMI 34.02 kg/m | BSA 2.01 m General: No acute distress, obese, pleasant woman, in NAD MAURI: Normocephalic, PERRLA, EOMI, external ears without lesions. Nares: No evidence of nasal erythema, polyps, purulence, congestion or septal deviation. Throat: No erythema, exudate, or tonsillar enlargement Neck: No evidence of elevated jugular veins or lymphadenopathy, hepatojugular reflux was ne gative Lungs: Clear to auscultation bilaterally, no wheezes, rhonchi or crackles Cardiac:regular rate and rhythm No murmurs, rubs or gallops. Abdomen: Normal abdominal bowel sounds; no evidence of hepatosplenomegaly Abd is soft. Non- tender, non-distended. Extremities: No cyanosis, clubbing, or edema Musculoskeletal: No obvious joint deformities noted. Neurologic: Exam grossly non-focal. Skin: No evidence of rash or skin changes. Lymph nodes: No other lymphadenopathy detected. Labs: Reviewed, significant for: Cr 1.25 K 3.3 AST/ALT: 37/41, alk phos 108 Lactate 0.9 NT-proBNP 64 WBC 7.88, hgb 15 Radiology: Reviewed CXR from 11/14 -> clear lungs, no opacities Reviewed EKG -> NSR, R axis deviation TTE pending Consultation Findings: Gema is a 53yo woman with a history of WHO Group 1 PH admitted wit h several weeks of increased SOB, chest pain, and decreased UOP Overall, suspect that she became fluid overloaded which lead to her current symptoms. In ta lking with her, no clear triggers but she does admit to having trouble following a fluid and salt restriction. She reports taking her medications including her diuretics but does admit to missing doses of sildenafil often. Suprisingly, her NT-proBNP remains normal (in the pas t, it has been as high as the 6804-5548 range) Given her overall appearance, I do not think that she requires a third agent at this time, especially given her response to diuresis and her stable labs and hemodynamics. I would cont inue with aggressive diuresis (at least another 1-2L net negative today), and then plan for discharge on an oral diuretic regimen with close follow up. I did discuss with her options for a third agent in preparation for the future - I think tonny rodriguez would be a decent candidate for IV epoprostenol therapy, we also discussed both inhaled an d oral therapy although I told her that these were thought to be less effective. Nevertheles s, I do not think we need to start a third agent at this time. Recommendations: - Continue diuresis as you are doing, aim for 1-2L net negative - Continue sildenafil TID and Letaris daily - Ok for the floor - No third agent for now - Would get a TTE (results pending) - Recommend asking cards if we could get a repeat RHC - it would be helpful to establish a new baseline given that she is on dual therapy and see if there has been improvement since h er initial RHC - Of note, she has a scheduled appointment with me on , 11/18 - one option, if she is ready for discharge, is to discharge her on the AM of 11/18 and then I can see her in cli tita before she heads home - I have discussed her with our pulmonary consult fellow - please feel free to reach out to us with any questions - Will continue to follow while she is inpatient Kate Benjamin MD [facility] PULMON[facility] & CRITICAL CARE MEDICINE AT [facility] Mailbox Code: [id number] [id number] [place] [address] Clinic phone number: [phone] Clinic fax number: [phone] BILLING As of 11/15/18, Gema Barron requires hospitalization due to the above issues that acti vely impair one or more organ systems such that there is a significant risk of deterioration in their condition and/or if they were to be discharged. I spent a total of 59 minute s providing hospital care to this patient 11/15/18. This time was exclusive of separately bi llable procedures. documented in this en counter Miscellaneous Notes Plan of Negrita - Leydi Gaytan RN - 11/19/2018 2:08 AM PDTPIV removed. Home meds returned to pt . Reviewed AVS with pt. Pt had no questions. Pt's friends arrived to unit to take pt home to [place], [place] (4 hours away). Upon setting up pt's supplemental O2, primary RN became gerardo rned that pt would not have enough O2 to make it through car ride home and overnight. RT dis charge environmental planner paged. Local [employer] rep contacted who later arrived t o unit to deliver 4 backup O2 tanks to pt. RN and RT present during pt teaching of equipment setup. RT also provided education about oxygen safety. Pt verbalized understanding of teach ing. Pt also verbalized understanding that she would contact the local [employer] rep upon arriva l home to have home O2 delivered. Pt left unit in WC with friends at 0200. RT escorted pt a nd friends to car. MD was made aware of delay in pt's discharge and O2 tank issues. Supported RN plan to wait until backup tanks could be provided. MD declined to evaluate pt at bedside given no signifi cant changes in pt health status. Was confident in day team's plan to DC pt. lan of Verenice Eastman ra, COMPUTER NETWORK SUPPORT SPECIALIST - 11/18/2018 3:35 PM PDT Problem: RT Goals & Interventions Goal: Assess patient and arrange for respiratory DME at discharge Intervention: Order DME from outside vendor and arrange delivery Note: [facility] [address] [place], [place] [address] Pt will be provided O2 from the [place] office, as it is closest to her in [place]. Rx faxed to the [place] office. [place] O2 tank given to patient, with instructions on it 's proper use. Also provided the patient with phone number of [place] [facility] [place] [facility]. The RT materials planner/production planner will continue to follow . Pager [phone] with any questions. lan of Care - Mary Jo Bailey, PT - 11/18/2018 3:17 PM PDT Physical Therapy 11/18/2018 3:17 PM Hospital Day # 4. Patient seen on 5A. Others present in room aside from patient and PT: rehab student, RN Time in: 1420 Time out: 1445 Patient was seen for a total of 25 minutes of direct one on one skilled physical therapy wh ich included 25 minutes of therapeutic activity Brief Hospital Course: Gema Barron is a 53year old woman with history of WHO Group I pulmonary hypertensionwho was previously admitted to OSH on 11/07 for ~30 lb weight gain, dyspnea on exertion, and chest pain secondary to acute decompensated right heart failure, th en transferred to [facility] on 11/14 for ongoing diuresis and management of her symptomatic pulmon kurtis hypertension in the setting of acute kidney injury and hyponatremia (adapted from Ana M goddard, 11/17/18) Relevant Precautions: Monitor SpO2 Subjective: Patient agreeable to working with therapy. Feeling worse today ("like dog crap" ) and reports low energy, shortness of breath, increased dizziness and nausea. Pain: no c/o pain Vitals: BP 96/65, HR 91, oxygen saturation at 90% with supplemental oxygen per Oxymask at 4 L. Sitting edge of bed, symptomatic. Objective: Patient received supine in bed. Pt transferred supine > sit edge of bed independently, head of bed elevated. Patient educated on single point cane use, PT visual demonstration for sequencing. Pt sat edge of bed x15 minutes, onset of dizziness with symptoms increasing. Vitals assessed (as above). Patient reports onset of nausea, requested emesis bag and anti-nausea medications. Patient declined single point cane ambulation due to nausea and dizziness. Patient left sidelying on right side, call light available, needs met. Patient's nurse in t he room and aware. [facility] BASIC MOBILITY Difficulty turning over in bed 4 - None - Modified Independent/Independent Difficulty sitting/standing from chair w/ arms 4 - None - Modified Independent/ Independent Difficulty moving from supine to sitting on edge of bed 3 - A Little - Minimal/contact Guar d Assist/Supervision Help needed moving from /to chair/wheelchair 3 - A Little - Minimal/Contact Guard Assist/S upervision Help needed walking in hospital room 3 - A Little - Minimal/Contact Guard assist/Supervisio n Help needed climbing 3-5 steps w/railing 1 - Unable to do/total assistance - Total/Dependen t Assist (not tested today) [facility] Basic Mobility Total Score 18 *Note: all activity was not directly observed and scoring is based on skills and deficits d emonstrated today Interpretation of [facility] Short Form - Basic Mobility: CMS Modifier (G-Code) Score (in points) % of Functional Impairment, Limitation, or Restrict ion CN 6 100% impaired, limited, restricted CM [...] CH 24 0% impaired, limited, or restricted Assessment: Patient's symptoms limited her ability to perform activity during today's sessi on. After session, observed single point cane being delivered to room, however pt unable to trial ambulation using single point cane as patient declined mobility following onset of lexi sea, dizziness. Updated Plan & Recommendations:Home with assist PRN;Continued PT at next level of care If patient remains in hospital, plan for gait trial with single point cane, including stair negotiation. Activity Recommendations for Nursing partners: *Routine mobility with nursing per safe aleksandra ent mobility check.* Patient's progress and activity recommendations were communicated verbally to patient's kristyn se for handoff communication. - Lights on and curtains open during day hours. - Up to chair for meals or 3x/day with 1 person assist. - Routine ambulation 3x/day with 1 person assist. DISCHARGE: RECOMMENDATIONS: Home with assist PRN;Continued PT at next level of care DME: single point cane (pt's request, see above assessment) Damon Abarca, SPT Should this patient discharge from the hospital prior to the next physical therapy treatmen t, this note shall serve as the discharge summary. Problem: PT Goals- Adult Goal: Functional Mobility Goal Description Patient will perform bed mobility,supine to edge of bed independently Patient will perform ,si to stand and pivot transfer independently Patient will ambulate 300 feet independently with least assistive device Patient will perform stair climbing 3 steps x 3 reps independently Outcome: Unable to show progress I was present for the above evaluation/treatment and agree with the assessment and plan of care. Mary Jo Santillan, PT, DPT Pager [phone] andoff - Torsten Guzman RN - 11/18/2018 11:40 AM PDTNursing Handoff Patient Daily Goal: Rosamaria will adhere to 2L fluid restriction (11/18/18 0809) [facility] IP NURSE HANDOFF: [facility] hospital course events: Per team: Gema Barron is a 53 year old woman with history of WHO Group I pulmonary hypertension who was previously admitted to OSH on 11/07 for ~30 lb weight gain, dyspnea on exertion, and chest pain secondary to acute d ecompensated right heart failure, then transferred to [facility] on 11/14 for ongoing diuresis and management of her symptomatic pulmonary hypertension in the setting of acute kidney injury a nd hyponatremia SAFETY Patient/Family Target: Rosamaria will maintain hemodynamic stability and continue to diurese effectively Progress to Target: No Change As evidenced by: Verenice was admitted with HF exacerbation. Now on supplemental O2, between 3-4L via Oxymask (NC, even w/humdifier, irritates her nose). On continuous pulse ox. Continues to report ARIZMENDI. Reported mild chest tightness this AM. Troponin, EKG, 2-view CXR ordered. All negative. Rep orts occasional heart palpitations. Not on tele. BPs soft. Afebrile. Labs stable. Potassium added d/t diuresis. Rosamaria has been adhering to fluid restriction and writing I&Os on whitebo karla for RN to chart. Continue to monitor closely for acute changes in hemodynamic status COMFORT/ANXIETY/BEHAVIOR Patient/Family Target: Rosamaria will have effective pain management Progress to Target: No Change As evidenced by: Rosamaria continues to report aching pain in her BL legs, which she rated 1/10. Given [place] t o good effect NURSING ASSESSMENT & RECOMMENDATIONS FORWARD Nursing Assessment of Patient Stability Risk: Moderately stable Recommendations Forward: - Workup for chest pain this AM - Intermittent nausea and lightheadedness. ODT Zofran and IV Compazine given to good effect this shift - IND in room - 2 g NA, 2 L fluids - Strict I&Os and daily weights - Increased O2 (4L) needs during hallway ambulation - Irregular HR and occasional palpitations. MDs aware Barriers to discharge: DC order in. Waiting for ride to arrive andoff - Leydi Gaytan RN - 11/18/2018 7:47 AM PDTNursing Handoff Patient Daily Goal: RN advocacy: Rosamaria will stay within her 2L fluid restriction (11/26) [facility] IP NURSE HANDOFF: [facility] hospital course events: Per team: Gema Barron is a 53 year old woman with history of WHO Group I pulmonary hypertension who was previously admitted to OSH on 11/07 for ~30 lb weight gain, dyspnea on exertion, and chest pain secondary to acute d ecompensated right heart failure, then transferred to [facility] on 11/14 for ongoing diuresis and management of her symptomatic pulmonary hypertension in the setting of acute kidney injury a nd hyponatremia SAFETY Patient/Family Target: Rosamaria will maintain hemodynamic stability and continue to diurese effectively Progress to Target: No Change As evidenced by: Verenice was admitted with HF exacerbation. Has had fluctuating O2 needs, but remained on 3L O2 via NC overnight Continues to report ARIZMENDI. Irregular HR. Not on tele. Had one low BP overn ight, which was fine upon recheck. Afebrile. Labs stable. Rosamaria has been adhering to fluid r estriction and informing staff about voids into hat. Continue to monitor closely for acute c hanges in hemodynamic status. COMFORT/ANXIETY/BEHAVIOR Patient/Family Target: Rosamaria will have effective pain management Progress to Target: No Change As evidenced by: Rosamaria complained of aching pain in her BL legs, which she rated 5/10. Given [place], which eventually helped to decrease the pain. Rosamaria refused regular tylenol, heat, and ice. NURSING ASSESSMENT & RECOMMENDATIONS FORWARD Nursing Assessment of Patient Stability Risk: Moderately stable Recommendations Forward: - IND in room - 2 g NA, 2 L fluids - Strict I&Os and daily weights - Increased O2 (4L) needs during hallway ambulation - Occasional soft BPs - Irregular HR and occasional palpitations. MDs aware Barriers to discharge: -Continued diuresis -O2 needs -Kidney labs--continued monitoring lan of Care - Amanda Joaquin LCSW - 11/17/2018 6:50 PM PDTSocial Work Consult Reason for referral: PATY referral for letter for court Assessment/Intervention: PATY met with Pt who said she had a court date for 11/18/18 and woul d not be able to make this date. Pt requested a letter be written to her parole board member documenti ng her hospital stay. SW got NIKOLE for Pt's parole board member Jeb Dumont. PATY wrote letter and faxed to parole board member. SW faxed medical team letter as well. Plan/Recommendations (including collaboration with other disciplines): SW involvement compl ete. Collaboration with medical team. Please contact PATY for any further needs. Amanda Joaquin LCSW [employer] 5A/14C [id number] Pager: [phone] lan of C are - Maricrzu, May, - 11/17/2018 11:49 AM PDTProblem: Nutrition Interventions Intervention: Nutrition Education Note: Patient identified on heart failure list. Met with her this morning and she tells me that s he knows quite well how to manage her diet at home. Says she was here for about a month on 1 1K last year and attended [employer] 2x/week during that time. She was also gi darya personalized education by dietitian during that admission. She will let me know if she h as questions/concerns this admission. Following, Sonia Alcantara RD [facility] Pager #[phone] andoff - Tonny Guzman RN - 11/17/2018 11:34 AM PDTNursing Handoff Patient Daily Goal: Rosamaria will adhere to fluid restriction (11/17/18 0856) [facility] IP NURSE HANDOFF: [facility] hospital course events: Per team: Gema Barron is a 53 year old woman with history of WHO Group I pulmonary hypertension who was previously admitted to OSH on 11/07 for ~30 lb weight gain, dyspnea on exertion, and chest pain secondary to acute d ecompensated right heart failure, then transferred to [facility] on 11/14 for ongoing diuresis and management of her symptomatic pulmonary hypertension in the setting of acute kidney injury a nd hyponatremia SAFETY Patient/Family Target: Rosamaria will maintain hemodynamic stability and continue to diurese effectively Progress to Target: No Change As evidenced by: Verenice was admitted with HF exacerbation. Had increased O2 needs (2 > 4L) while at rest las t night. On 2-3L this shift, titrated to 4L during ambulation. Continues to report ARIZMENDI. Irre gular HR. With pulse ox on, intermittently fluctuated between bradycardia and tachycardia th is AM. Reported some heart palpitations at this time (possible hx of PVCs). MDs informed dur ing rounds. Not on tele. BPs WNL. Afebrile. Labs stable. Potassium added d/t diuresis. Rosamaria has been adhering to fluid restriction and informing staff about voids into hat. Continue t o monitor closely for acute changes in hemodynamic status COMFORT/ANXIETY/BEHAVIOR Patient/Family Target: Rosamaria will have effective pain management Progress to Target: No Change As evidenced by: Rosamaria complained of aching pain in her BL legs, which she rated 5/10. Given [place] to good effect NURSING ASSESSMENT & RECOMMENDATIONS FORWARD Nursing Assessment of Patient Stability Risk: Moderately stable Recommendations Forward: - IND in room - 2 g NA, 2 L fluids - Strict I&Os and daily weights - Increased O2 (4L) needs during hallway ambulation - Irregular HR and occasional palpitations. MDs aware Barriers to discharge: Treatment for HF exacerbation lan of Care - Ana M Menjivar, PT - 11/17/2018 10:33 AM PDTFormatting of this note might be different from the origin al. Problem: PT Goals- Adult Goal: Functional Mobility Goal Description Patient will perform bed mobility,supine to edge of bed independently Patient will perform ,si to stand and pivot transfer independently Patient will ambulate 300 feet independently with least assistive device Patient will perform stair climbing 3 steps x 3 reps independently Outcome: Gradual progress toward goal Physical Therapy Evaluation [phone] GEMA S [facility] Day: 3 Date of : 1965 Start of care: 11/17/2018 Attending Practitioner: Cody Stokes, * Primary/Referral Diagnosis/ICD-9: I50.21 Acute systolic congestive heart failure (HCC) Insurance: Payor: [employer] / Plan: [facility] / Product Type: Medicaid / Service period from: 11/17/2018 to 02/15/2019 Time in: 1010 Time out: 1035 Patient was seen for a total of 25 minutes of direct one on one skilled physical therapy wh ich included evaluation and 15 minutes of therapeutic activities Patient seen on 5A Others Present for PT session besides patient and therapist: none Consulted/Discussed patient's care with: RN Brief Hospital Course: Gema Barron is a 53 year old woman with history of WHO Group I pulmonary hypertension who was previously admitted to OSH on 11/07 for ~30 lb weight gain, dyspnea on exertion, and chest pain secondary to acute decompensated right heart failure, th en transferred to [facility] on 11/14 for ongoing diuresis and management of her symptomatic pulmon kurtis hypertension in the setting of acute kidney injury and hyponatremia. As per MD notes,11/17/18 Relevant Precautions: SpO2 Indication for PT Evaluation: Decline in functional mobility Past Medical History: Diagnosis Date Acute renal failure (HCC) 03/14/2017 Chronic systolic heart failure (HCC) CKD (chronic kidney disease), stage III (HCC) 10/17/2017 History of inhalational methamphetamine abuse 03/17/2017 Osteoarthritis Reactive airway disease Seasonal allergies Ulcerative colitis (HCC) Von Willebrand disease (HCC) Past Surgical History: Procedure Laterality Date COLONOSCOPY 1999 CT ANGIOGRAPHY CHEST W/ + W/O CONTRAST 03/22/2017 CT ANGIOGRAPHY CHEST W/ + W/O CONTRAST 05/22/2018 RIGHT HEART CATHETERIZATION Right 03/22/2017 TUBOPLASTY FOR TUBAL LIGATION REVERSAL 1994 Subjective:Patient agreed to work with PT, "I would prefer to get a single point cane when I discharge home-the sidewalk around my house is too bad to walk on and I want to have somet jaciel to hold on to when I get out of breath." Living Environment: Patient will be living with her friend in a two niesha house with one s tep to enter.Bedroom and bathroom on same level Bathroom Set-up: tub shower; has a shower chair- "I don't think the one I have will fit in my new bath tub." Prior Level of Function: Mobility: independent with bed mobility,transfers,ambulation and stairs, mostly stays indo ors Equipment at home: none Fall history - one in past 6 months, mechanical- was wearing heels,tripped Patient / Family Goal: go home Communication/Barriers: Slovenian/lightheadedness Pain: headache 03/20 - RN updated Vital Signs: stable pre and post session, reported being lightheaded post ambulation-BP sta ble, post ambulation -SpO2 89-90% on 3 LPM of oxygen, at rest on 3 LPM of oxygen - SpO2 94-9 5% Cognitive Screen Level of alertness: awake and alert Orientation: OX4 Quality of responses: appropriate to open end questions Command following: appropriate to multi step commands Judgment / safety awareness: intact Physical Assessment ROM: within functional limits bilateral lower extremity Strength: 4/5 bilateral lower extremity Edema: none observed Skin Integrity: intact on visible site Posture: within functional limits Neurological Function Sensation: impaired, neuropathy at baseline Muscle Tone: not tested Proprioception: impaired Gross Motor: within functional limits Fine Motor: within functional limits Balance: Sitting static: normal, independent Sitting dynamic: normal, independent Standing static: good, independent Standing dynamic: good, supervision Functional Balance Grades Normal Static: Patient able to maintain steady balance without handhold support Dynamic: Patient accepts maximal challenge and can shift weight easily within full range in all directions Good Static: Patient able to maintain balance without handhold support, limited postural sw ay Dynamic: Patient accepts moderate challenge; able to maintain balance while picking object off floor Fair Static: Patient able to maintain balance with handhold support; may require occasional minimal assistance Dynamic: Patient accepts minimal challenge; able to maintain balance while turning head/tristan nk Poor Static: Patient requires handhold support and moderate to maximal assistance to mainta in position Dynamic: Patient unable to accept challenge or move without loss of balance O Wilton Melo. and Erna Horton (2007). Physical rehabilitation: assessment and treatme nt (5th ed.). [place]: [employer]. p.254 Mobility & Transfers: Supine to sit/Sit to supine: modified independent-railing support Sit to stand/Stand to sit: independent without assistive device Scoot: independent Stand pivot transfer: independent without assistive device Gait: Patient ambulated 80 feet without assistive device,standby assist ,portable oxygen-3 LPM,two standing rest breaks, reinforcements to take deep breaths intermittently,reciprocal gait pattern,no loss of balance,no buckling of knee, cues to increase gait speed, reported b eing lightheaded,positioned back in bed, resolved with rest break, vitals stable Outcome Measure: [facility] BASIC MOBILITY Difficulty turning over in bed 4 - None - Modified Independent/Independent Difficulty sitting/standing from chair w/ arms 4 - None - Modified Independent/ Independent Difficulty moving from supine to sitting on edge of bed 3 - A Little - Minimal/contact Guar d Assist/Supervision Help needed moving from /to chair/wheelchair 3 - A Little - Minimal/Contact Guard Assist/S upervision Help needed walking in hospital room 3 - A Little - Minimal/Contact Guard assist/Supervisio n Help needed climbing 3-5 steps w/railing 1 - Unable to do/total assistance - Total/Dependen t Assist (not tested today) [facility] Basic Mobility Total Score 18 Interpretation of [facility] Short Form - Basic Mobility: CMS Modifier [...] CH 24 0% impaired, limited, or restricted *This score not officially observed but is implied based on other components of patient's m obility and may be an underestimate Treatment and education provided this date: orders received,chart reviewed,patient was eval uated,DME screening done, patient education on deep breathing,importance of ambulation Patient received supine in bed,head of bed 45 degree, Patient performed supine to edge of bed - modified independent, education on log roll, prog ressed to independent edge of bed - Patient performed bilateral lower extremity -hip flexion,long arc quads and a nkle toe movements -10 reps each- active range of motion Sit to stand without assistive device-independent Patient ambulated as mentioned above Ended session: Patient left in bed with call malagon within reach and RN updated. ASSESSMENT: Gema Barron is a 53 year old admitted on 11/14/2018 with prior level of fu nction independent with bed mobility,transfers,ambulation and stairs.Patient presents here w ith assistance for ambulation.Patient needs 3 LPM of oxygen at rest and during ambulation,re ported being lightheaded post ambulation-limiting further functional mobility and ambulation .Patient has good standing dynamic balance,did not use assistive device in today's session,p refers to use single point cane for comfort post D/C to ambulate on uneven surface,long dist ance. Acute PT services indicated to address the above mentioned deficits. This patient has good rehabilitation potential to achieve stated goals (see Care Plan for g oals) and requires continued rehabilitation services, given the patient's medical condition is such that the skills of a therapist are required for monitoring and adjustment of interve ntions See Care Plan for goals. Personal factors/Comorbidities; High - 3 or more personal factors. Behavior: None Learning Factors: Appears anxious/dissociated. Social Issues: Medical conditions Medical Conditions Impacting Care: Multiple co-morbidities and Cardiac Body Systems Elements: High - 4 or more elements Body structures & functions: Pain, Range of motion, Strength, Cardiopulmonary status, Sam ce and Endurance Activity limitations: Impaired transfers, Impaired gait, Difficulty with stairs and Difficu lty with activities of daily living Participation restrictions: Driving and Community activities. Clinical Presentation: Moderate - Evolving: Drains/lines/tubes, Vital signs response and Pa in response Clinical decision making: Moderate Complexity: Moderate level of skill to determine plan of care and implement changes accordingly Complexity: moderate Rosamaria's knowledge of disease process: Good . The patient requires services that can be safely and effectively performed only by a quali fied therapist to address the aforementioned and highlighted problems and goals. Goals discussed and agreed upon with Gema. Activity Recommendations for Nursing partners: *Nursing to re-assess per shift as needed.* - Lights on and curtains open during day hours. - Up to chair for meals or 3x/day without assistive device and 1 person assist. - Routine ambulation 3x/day without assistive device and 1 person assist. DISCHARGE RECOMMENDATIONS: Home with assist PRN;Continued PT at next level of care (home health PT) durable medical equipment- TBD close to D/C, patient prefers single point cane Consulted with: RN: recommendations PLAN: Physical therapy plan of care and sessions will concentrate on increasing activity t olerance, strength, balance, and functional mobility through therapeutic exercise, neuromusc ular re-education, and gait and transfer training, as well as education on precautions, safe ty, and activity recommendations specific to patient. Frequency: 2 More visits Duration: 2-3 days The above plan of care and goals were developed and reviewed with the patient. Should this patient discharge from the hospital prior to the next physical therapy treatmen t, this note shall serve as the discharge summary. lan of Care - Gema Pike, COMPUTER NETWORK SUPPORT SPECIALIST - 11/17/2018 9:51 AM PDT Problem: RT Goals & Interventions Goal: Assess patient and arrange for respiratory DME at discharge Note: Respiratory Care Discharge Planning Desaturation Evaluation for Oxygen Use at Home Purpose for evaluation: Desaturation evaluation for initial qualification for home O2 Ordering Provider: Dr. Johnson Diagnosis: Pulmonary Hyptertension ICD-10:I27.0 Evaluation results: $ SpO2 on room air at rest (%): 91 % (11/17/18810) SpO2 on O2 at rest (%): 95 % (11/17/18810) Rate of O2 at rest (LPM): 4 LPM (11/17/18810) SpO2 on 4L at rest (%): 95 % (11/17/18810) Ambulated patient?: Yes (11/17/18810) SpO2 on room a ir with ambulation (%): 88 % (11/17/18810) SpO2 on O2 with ambulation (%): 92 % (11/17/18810) Rate of O2 with ambulation (LPM): 2 LPM (11/17/18810) Dyspnea Ind ex - Before: 0 (11/17/18810) Dyspnea Index - After: 3 (11/17/18810) Questions about the O2 evaluation can be referred to the RT Healthcare Sales Representative by paging [phone] Intervention: Establish medical necessity and identify repiratory DME needed for discharge Note: [address] [address] The patient qualified for the following respiratory DME upon discharge: Home oxygen See details of the desaturation study in the procedure tab. [place] in [place] DME [phone] The RT materials planner/production planner will continue to follow . Pager [phone] with any questions. Intervention: Order DME from outside vendor and arrange delivery Note: [place] [address] [address] RX and notes signed and faxed to [facility] [phone], and also to the [place] branch. P atient states that she will be staying with friend in [place]. Address given is [address] [place] [address], [place] [address]. The RT materials planner/production planner will continue to follow . Pager [phone] with any questions. lan of Negrita - Gema Jaimes RCP - 11/17/2018 8:16 AM PDT Problem: RT Goals & Interventions Goal: Assess patient and arrange for respiratory DME at discharge Note: Respiratory Care Discharge Planning Desaturation Evaluation for Oxygen Use at Home Purpose for evaluation: Desaturation evaluation for initial qualification for home O2 Ordering Provider: Dr. Johnson Diagnosis: Pulmonary Hyptertension ICD-10:I27.0 Evaluation results: $ SpO2 on room air at rest (%): 91 % (11/17/18810) SpO2 on O2 at rest (%): 95 % (11/17/18810) Rate of O2 at rest (LPM): 4 LPM (11/17/18810) SpO2 on 4L at rest (%): 95 % (11/17/18810) Ambulated patient?: Yes (11/17/18810) SpO2 on room a ir with ambulation (%): 88 % (11/17/18810) SpO2 on O2 with ambulation (%): 92 % (11/17/18810) Rate of O2 with ambulation (LPM): 2 LPM (11/17/18810) Dyspnea Ind ex - Before: 0 (11/17/18810) Dyspnea Index - After: 3 (11/17/18810) Questions about the O2 evaluation can be referred to the RT Healthcare Sales Representative by paging [phone] Intervention: Establish medical necessity and identify repiratory DME needed for discharge Note: [address] [address] The patient qualified for the following respiratory DME upon discharge: Home oxygen See details of the desaturation study in the procedure tab. [place] in [place] DME [phone] The RT materials planner/production planner will continue to follow . Pager [phone] with any questions. andoff - Javi Salcedo RN - 11/16/2018 5:56 AM PDTNursing Handoff [facility] IP NURSE HANDOFF: Llamas hospital course events: 52 y.o. female with WHO Group I pulmonar y arterial hypertension; transferred from [place] for management of severe, symptomatic PH . Transfer due to concern for right heart failure and potential cardiogenic shock. She has b een aggressively diuresed with decreasing chest pressure and SOB. Last 12 hrs: Diuresis with PO metolazone followed by IV furosemide 120 mg Tolerating wean from supplemental oxygen Ambulating in hallway with decreased severity of SOB SAFETY Patient/Family Target: Hemodynamic & respiratory stability Progress to Target: Improving As evidenced by: Pt continues NSR with occasional to frequent PVC's Stable bp Oxygen saturation levels >92%; currently on 4L, titrated down to 2L to good effect. Increased physical activity with decreased SOB RESTORATIVE MEASURES/SELF-MANAGEMENT Patient/Family Target: Rosamaria's potassium levels will remain WDL Progress to Target: No Change As evidenced by: Rosamaria is getting aggressive diuresing to reduce symptoms r/t PAH. PMH of hypokalemia. P t reported severe cramping during activity. MD notified, labs drawn. Slightly hypokalemic (3.3). EKG ordered for pt and PO potassium given. Continue diuresing but pt c/o muscular c ramping. Tylenol has been ineffective, paged MD for pain management. Pain r/t chest conges tion seems to have gone down significantly. As evidenced by: NURSING ASSESSMENT & RECOMMENDATIONS FORWARD Nursing Assessment of Patient Stability Risk: Moderately stable Recommendations Forward: EKG done 11/16 Hypokalemic 2L via Oximask, helps reduce risk for epistaxis, Von Willebrand clotting disorder Strict I&Os 2G Na / 2L fluid restrictions Barriers to discharge: PAH Symptom Management Pulm HTN andoff - Suzy Edwards RN - 11/15/2018 3:43 PM PDTNursing Handoff [place] IP NURSE HANDOFF: [facility] hospital course events: 52 y.o. female with WHO Group I pulmonar y arterial hypertension; transferred from [place] for management of severe, symptomatic PH . Transfer due to concern for right heart failure and potential cardiogenic shock. She has b een aggressively diuresed with decreasing chest pressure and SOB. Last 12 hrs: Diuresis with PO metolazone followed by IV furosemide 120 mg Tolerating wean from supplemental oxygen Ambulating in hallway with decreased severity of SOB SAFETY Patient/Family Target: Hemodynamic & respiratory stability I&O negative Progress to Target: Improving As evidenced by: Pt continues NSR with occasional to frequent PVC's Stable bp Oxygen saturation levels >92%; able to wean flow from 4 to 2L so far I&O negative 300mL so far Increased physical activity with decreased SOB NURSING ASSESSMENT & RECOMMENDATIONS FORWARD Nursing Assessment of Patient Stability Risk: Moderately stable ransfer Note - Liz Mcdaniel MD - 11/15/2018 3:23 PM PDTINPATIENT MEDICINE TRANSFER CENTER & IN[facility]HOSPITAL ACCEPT NOTE Medicine Hospitalist Attending Author: Liz Mcdaniel MD PCP: Bobbi Jenkins NP [address] [facility] [place] [address] FAX: [phone] Referring Physician: Dr. 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 At other facility was struggling to diu rese, sent here for consideration of more advanced therapies CVICU put her on high dose lasix with metolazone, and having success with diuresis. No ICU needs. Her Pulm HTN provider has seen her (see note by Dr. Benjamin). Recommending RHC, the CVICU team discussed with Cardiology and they will do it once she's euvolemic, will need to be called back. Problem List: 1. Pulm HTN with volume overload Recommendations: 1. Continue diuresis 2. RHC when euvolemic 3. See Pulm recommendations Clerical reminders: I have placed the patient s name on IPT Gen Med Expected ssessment & Plan N ote - Mykel Kwon MD - 11/14/2018 9:49 PM PDTAssociated Problem(s): Reactive airway d isease-Cont home albuterol prn 9: 49 PM PDTAssessment & Plan Note - Mykel Kwon MD - 11/14/2018 9:48 PM PDTAssociated P roblem(s): Chest pain of uncertain etiology (Resolved 11/18/2018)Likely secondary to RV stra in. Troponins negative at OSH and EKG without ischemic changes here. CXR unremarkable. 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 Clinical hi story suggests worsening decompensation and she may be nearing indication for a third agent. Given that she is warm, mentating well and with stable VS, will proceed with more aggressiv e diuresis and defer placing PA catheter pending response. Prior RHC was not completed in he r Mar 2017 admission (only RV pressures recorded), so may be worthwhile to place a PA cathet er or get RHC this admission. Initially given 200mg lasix with 1g diuril. NT-proBNP WNL. - CTM urine output - f/u TTE results - consult cardiology for right heart cath when euvolemic, for workup for potential third ag ent for Pulmonary HTN - Maintain schulte - Replace K and Mg as needed - Cont sildenafil 20mg tid - Cont ambresentan, or formulary equivalent - Cont discussion about more advanced PH therapies pending response ssessment & Plan Note - Mykel Kwon MD - 11/14/2018 9:45 PM PDTAssociated Problem(s): Ulcerative colitis (HCC) Not on active erapy, not currently with significant symptoms. She reports that prn mustard is sufficient t o control her flares. -OK for mustard as needed P M PDTdocumented in this encounter Plan of Treatment Not on filedocumented as of this encounter Procedures + +--------+ + + + | Procedure Name | Priori | Date/Time | Associated Diagnosis | Comments | | | ty | | | | + +--------+ + + + | 12 LEAD ECG | Routin | 11/18/2018 | | Results for this | | | e | 12:57 PM | | procedure are in the | | | | PDT | | results section. | + +--------+ + + + | X-RAY CHEST 2 VIEW | Routin | 11/18/2018 | | Results for this | | | e | 12:21 PM | | procedure are in the | | | | PDT | | results section. | + +--------+ + + + | TROPONIN I, PLASMA | Routin | 11/18/2018 | | Results for this | | | e | 10:08 AM | | procedure are in the | | | | PDT | | results section. | + +--------+ + + + | 12 LEAD ECG | Routin | 11/18/2018 | | Results for this | | | e | 9:31 AM | | procedure are in the | | | | PDT | | results section. | + +--------+ + + + | BASIC METABOLIC SET | Urgent | 11/18/2018 | | Results for this | | (NA, K, CL, TCO2, | | 6:26 AM | | procedure are in the | | BUN, CR, GLU, CA) | | PDT | | results section. | + +--------+ + + + | BASIC METABOLIC SET | Routin | 11/17/2018 | | Results for this | | (NA, K, CL, TCO2, | e | 2:47 PM | | procedure are in the | | BUN, CR, GLU, CA) | | PDT | | results section. | + +--------+ + + + | BASIC METABOLIC SET | Routin | 11/17/2018 | | Results for this | | (NA, K, CL, TCO2, | e | 5:42 AM | | procedure are in the | | BUN, CR, GLU, CA) | | PDT | | results section. | + +--------+ + + + | MAGNESIUM, PLASMA | Routin | 11/17/2018 | | Results for this | | | e | 5:42 AM | | procedure are in the | | | | PDT | | results section. | + +--------+ + + + | BASIC METABOLIC SET | Routin | 11/16/2018 | | Results for this | | (NA, K, CL, TCO2, | e | 2:50 PM | | procedure are in the | | BUN, CR, GLU, CA) | | PDT | | results section. | + +--------+ + + + | SODIUM TOTAL, URINE | Routin | 11/16/2018 | | Results for this | | | e | 6:30 AM | | procedure are in the | | | | PDT | | results section. | + +--------+ + + + | CREATININE, URINE | Routin | 11/16/2018 | | Results for this | | | e | 6:30 AM | | procedure are in the | | | | PDT | | results section. | + +--------+ + + + | CBC (HEMOGRAM) ONLY | Routin | 11/16/2018 | | Results for this | | | e | 5:47 AM | | procedure are in the | | | | PDT | | results section. | + +--------+ + + + | RENAL FUNCTION SET | Routin | 11/16/2018 | | Results for this | | (NA,K,CL,CO2,BUN,CRE | e | 5:47 AM | | procedure are in the | | AT,GLUC,CA,PHOS,ALB | | PDT | | results section. | | ) | | | | | + +--------+ + + + | CBC ONLY | Routin | 11/16/2018 | | Results for this | | | e | 5:47 AM | | procedure are in the | | | | PDT | | results section. | + +--------+ + + + | PHOSPHORUS, PLASMA | Routin | 11/16/2018 | | Results for this | | | e | 5:47 AM | | procedure are in the | | | | PDT | | results section. | + +--------+ + + + | ALBUMIN, PLASMA | Routin | 11/16/2018 | | Results for this | | | e | 5:47 AM | | procedure are in the | | | | PDT | | results section. | + +--------+ + + + | MAGNESIUM, PLASMA | Routin | 11/16/2018 | | Results for this | | | e | 5:47 AM | | procedure are in the | | | | PDT | | results section. | + +--------+ + + + | 12 LEAD ECG | Routin | 11/16/2018 | | Results for this | | | e | 3:20 AM | | procedure are in the | | | | PDT | | results section. | + +--------+ + + + | BASIC METABOLIC SET | Routin | 11/16/2018 | | Results for this | | (NA, K, CL, TCO2, | e | 12:40 AM | | procedure are in the | | BUN, CR, GLU, CA) | | PDT | | results section. | + +--------+ + + + | MAGNESIUM, PLASMA | Routin | 11/16/2018 | | Results for this | | | e | 12:40 AM | | procedure are in the | | | | PDT | | results section. | + +--------+ + + + | RENAL FUNCTION SET | Urgent | 11/15/2018 | | Results for this | | (NA,K,CL,CO2,BUN,CRE | | 5:47 PM | | procedure are in the | | AT,GLUC,CA,PHOS,ALB | | PDT | | results section. | | ) | | | | | + +--------+ + + + | MAGNESIUM, PLASMA | Urgent | 11/15/2018 | | Results for this | | | | 5:47 PM | | procedure are in the | | | | PDT | | results section. | + +--------+ + + + | BASIC METABOLIC SET | Urgent | 11/15/2018 | | Results for this | | (NA, K, CL, TCO2, | | 11:20 AM | | procedure are in the | | BUN, CR, GLU, CA) | | PDT | | results section. | + +--------+ + + + | MAGNESIUM, PLASMA | Urgent | 11/15/2018 | | Results for this | | | | 11:20 AM | | procedure are in the | | | | PDT | | results section. | + +--------+ + + + | TRANSTHORACIC | Urgent | 11/15/2018 | | Results for this | | ECHOCARDIOGRAM, | | 9:10 AM | | procedure are in the | | ADULT | | PDT | | results section. | + +--------+ + + + | CBC (HEMOGRAM) ONLY | Urgent | 11/15/2018 | | Results for this | | | | 1:37 AM | | procedure are in the | | | | PDT | | results section. | + +--------+ + + + | RENAL FUNCTION SET | Urgent | 11/15/2018 | | Results for this | | (NA,K,CL,CO2,BUN,CRE | | 1:37 AM | | procedure are in the | | AT,GLUC,CA,PHOS,ALB | | PDT | | results section. | | ) | | | | | + +--------+ + + + | CBC ONLY | Urgent | 11/15/2018 | | Results for this | | | | 1:37 AM | | procedure are in the | | | | PDT | | results section. | + +--------+ + + + | LACTATE | Urgent | 11/14/2018 | | Results for this | | | | 10:37 PM | | procedure are in the | | | | PDT | | results section. | + +--------+ + + + | X-RAY CHEST 1 VIEW | Routin | 11/14/2018 | | Results for this | | | e | 9:39 PM | | procedure are in the | | | | PDT | | results section. | + +--------+ + + + | NT-PRO BNP | Urgent | 11/14/2018 | | Results for this | | | | 8:55 PM | | procedure are in the | | | | PDT | | results section. | + +--------+ + + + | CBC AND AUTO DIFF | Urgent | 11/14/2018 | | Results for this | | | | 8:55 PM | | procedure are in the | | | | PDT | | results section. | + +--------+ + + + | CBC, WITH | Urgent | 11/14/2018 | | Results for this | | DIFFERENTIAL | | 8:55 PM | | procedure are in the | | | | PDT | | results section. | + +--------+ + + + | COMPLETE METABOLIC | Urgent | 11/14/2018 | | Results for this | | SET | | 8:55 PM | | procedure are in the | | (NA,K,CL,CO2,BUN,CRE | | PDT | | results section. | | AT,GLUC,CA,AST,ALT,B | | | | | | ZENON TOTAL,ALK | | | | | | PHOS,ALB,PROT TOTAL) | | | | | + +--------+ + + + | MAGNESIUM, PLASMA | Urgent | 11/14/2018 | | Results for this | | | | 8:55 PM | | procedure are in the | | | | PDT | | results section. | + +--------+ + + + | 12 LEAD ECG | Routin | 11/14/2018 | | Results for this | | | e | 8:03 PM | | procedure are in the | | | | PDT | | results section. | + +--------+ + + + | OUTSIDE CARDIOLOGY | | 11/14/2018 | | Results for this | | | | 12:00 AM | | procedure are in the | | | | PDT | | results section. | + +--------+ + + + | OUTSIDE CARDIOLOGY | | 11/14/2018 | | Results for this | | | | 12:00 AM | | procedure are in the | | | | PDT | | results section. | + +--------+ + + + documented in this encounter Results 12 LEAD ECG (11/18/2018 12:57 PM PDT) + + + + + + | Component | Value | Ref Range | Performed | Pathologist | | | | | At | Signature | + + + + + + | VENTRICULAR | 84 | bpm | [facility] | | | RATE | | | OF | | | | | | CARDIOLOGY | | + + + + + + | ATRIAL RATE | 84 | ms | [facility] | | | | | | OF | | | | | | CARDIOLOGY | | + + + + + + | P-R | 182 | ms | [facility] | | | INTERVAL | | | OF | | | | | | CARDIOLOGY | | + + + + + + | P AXIS | 36 | deg | [facility] | | | | | | OF | | | | | | CARDIOLOGY | | + + + + + + | QRS | 141 | ms | [facility] | | | DURATION | | | OF | | | | | | CARDIOLOGY | | + + + + + + | QT | 447 | ms | [facility] | | | | | | OF | | | | | | CARDIOLOGY | | + + + + + + | QTC-JAYDON | 530 | ms | [facility] | | | | | | OF | | | | | | CARDIOLOGY | | + + + + + + | R AXIS | -1 | deg | [facility] | | | | | | OF | | | | | | CARDIOLOGY | | + + + + + + | T AXIS | 52 | deg | [facility] | | | | | | OF | | | | | | CARDIOLOGY | | + + + + + + | ECG | Sinus rhythm | | [facility] | | | IMPRESSION | | | OF | | | | | | CARDIOLOGY | | + + + + + + | ECG | Nonspecific | | [facility] | | | IMPRESSION | intraventricular | | OF | | | | conduction delay | | CARDIOLOGY | | + + + + + + | ECG | Minimal ST depression, | | [facility] | | | IMPRESSION | anterolateral leads | | OF | | | | | | CARDIOLOGY | | + + + + + + | ECG | Prolonged QT interval- | | [facility] | | | IMPRESSION | ABNORMAL ECG - | | OF | | | | | | CARDIOLOGY | | + + + + + + | ECG | Electronically signed | | [facility] | | | IMPRESSION | by: CARIE MEI | | OF | | | | 11-19-2018 09:32:09 | | CARDIOLOGY | | + + [...] DEPT OF | [address] | [place], [place] | | | CARDIOLOGY | [address] | [address] | | + + + + + X-RAY CHEST 2 VIEW (11/18/2018 12:21 PM PDT) + + | Specimen | + + | | + + + + + | Narrative | Performed At | + + + | EXAM: CHEST 2 VIEWS HISTORY: Cough, new onset COMPARISON: | [facility] | | Chest radiograph 11/14/2018 and CTA chest 03/22/17 FINDINGS: | RADIOLOGY VOICE | | Linear atelectasis is noted in the lateral left hemithorax, better | RECOGNITION 2 | | seen on lateral image. The lungs are otherwise clear without focal | | | consolidation or pulmonary edema. The cardiomediastinal contour is | | | normal. There is no pleural effusion or pneumothorax. Chronic | | | compression fracture of T11. IMPRESSION: No focal | | | consolidation. I have personally reviewed the images and, if | | | necessary, edited the report. I agree with the report as now | | | presented. Final signature: Alejandra Gale MD 11/18/2018 | | | 4:06 PM Preliminary: Janet Looney MD Dictation initiated: | | | Janet Looney MD 11/18/2018 2:57 PM | | + + + + + | Procedure Note | + + | Service Account, Radiant Res In Interface - 11/18/2018 4:07 PM PDT EXAM: CHEST 2 | | VIEWS HISTORY: Cough, new onset COMPARISON: Chest radiograph 11/14/2018 and CTA chest | | 03/22/17 FINDINGS: Linear atelectasis is noted in the lateral left hemithorax, better | | seen on lateral image. The lungs are otherwise clear without focal consolidation or | | pulmonary edema. The cardiomediastinal contour is normal. There is no pleural effusion | | or pneumothorax. Chronic compression fracture of T11. IMPRESSION: No focal | | consolidation. I have personally reviewed the images and, if necessary, edited the | | report. I agree with the report as now presented. Final signature: Alejandra Gale MD | | 11/18/2018 4:06 PM Preliminary: Janet Looney MD Dictation initiated: Janet Looney MD 11/18/2018 2:57 PM | | | |IMPRESSION: | | | |No focal consolidation. | | | |I have personally reviewed the images and, if necessary, edited the report. I agree with th e report as now presented. | | | |Final signature: Alejandra Gale MD 11/18/2018 4:06 PM | |Preliminary: Janet Looney MD | |Dictation initiated: Janet Looney MD 11/18/2018 2:57 PM | + + + +---------+ + + | Performing | Address | City/State/Zipcode | Phone Number | | Organization | | | | + +---------+ + + | [facility] | | | | | VOICE RECOGNITION 2 | | | | + +---------+ + + TROPONIN I, PLASMA (11/18/2018 10:08 AM PDT) + +-------+ + + + | Component | Value | Ref Range | Performed | Pathologist | | | | | At | Signature | + +-------+ + + + | TROPONIN I | <0.02 | <0.80 ng/mL | [facility] | | [...] [facility] | [address] | [place] [address] | | | SERVICES, CORE | [address] | | | + + + + + 12 LEAD ECG (11/18/2018 9:31 AM PDT) + + + + + + | Component | Value | Ref Range | Performed | Pathologist | | | | | At | Signature | + + + + + + | VENTRICULAR | 94 | bpm | [facility] | | | RATE | | | OF | | | | | | CARDIOLOGY | | + + + + + + | ATRIAL RATE | 94 | ms | [facility] | | | | | | OF | | | | | | CARDIOLOGY | | + + + + + + | P-R | 190 | ms | [facility] | | | INTERVAL | | | OF | | | | | | CARDIOLOGY | | + + + + + + | P AXIS | 48 | deg | [facility] | | | | | | OF | | | | | | CARDIOLOGY | | + + + + + + | QRS | 110 | ms | [facility] | | | DURATION | | | OF | | | | | | CARDIOLOGY | | + + + + + + | QT | 354 | ms | [facility] | | | | | | OF | | | | | | CARDIOLOGY | | + + + + + + | QTC-BAZETT | 444 | ms | [facility] | | | | | | OF | | | | | | CARDIOLOGY | | + + + + + + | R AXIS | | | [facility] | | | | | | OF | | | | | | CARDIOLOGY | | + + + + + + | T AXIS | 60 | deg | [facility] | | | | | | OF | | | | | | CARDIOLOGY | | + + + + + + | ECG | Sinus rhythm | | [facility] | | | IMPRESSION | | | OF | | | | | | CARDIOLOGY | | + + + + + + | ECG | Ventricular premature | | [facility] | | | IMPRESSION | complex | | OF | | | | [...] + + + + | ECG | Repol abnrm, prob | | [facility] | | | IMPRESSION | ischemia, anterolateral | | OF | | | | lds- ABNORMAL ECG - | | CARDIOLOGY | | + + + + + + | ECG | Electronically signed | | [facility] | | | IMPRESSION | by: CARIE MEI | | OF | | | | 11-18-2018 10:01:17 | | CARDIOLOGY | | + + [...] + + + + + | [facility] | [address] | [place], [place] | | | CARDIOLOGY | [address] | [address] | | + + + + + BASIC METABOLIC SET (NA, K, CL, TCO2, BUN, CR, GLU, CA) (11/18/2018 6:26 AM PDT) + + + + + + | Component | Value | Ref Range | Performed | Pathologist | | | | | At | Signature | + + + + + + | GLUCOSE, | 131 (H) | 70 - 99 mg/dL | [facility] | | | PLASMA | | | LABORATORY | | | (LAB) | | | SERVICES, | | | | | | CORE | | + + + + + + | BUN, PLASMA | 35 (H) | 6 - 20 mg/dL | [facility] | | | (LAB) | | | LABORATORY | | | | | | SERVICES, | | | | | | CORE | | + + + + + + | CREATININE | 1.46 (H) | 0.60 - 1.10 | [facility] | | | PLASMA | | mg/dL | LABORATORY | | | (LAB) | | | SERVICES, | | | | | | CORE | | + + + + + + | EGFR | 45 (L) | >60 mL/min | [facility] | | | - | | | LABORATORY | | | VINCENTIAN | | | SERVICES, | | | | | | CORE | | + + + + + + | EGFR NON | 37 (L) | >60 mL/min | [facility] | | | -BRY | | | LABORATORY | | | RICAN | | | SERVICES, | | | | | | CORE | | + + + + + + | SODIUM, | 134 (L) | 136 - 145 | [facility] | | | PLASMA | | mmol/L | LABORATORY | | | (LAB) | | | SERVICES, | | | | | | CORE | | + + + + + + | POTASSIUM, | 3.9 | 3.4 - 5.0 | [facility] | | | PLASMA | | mmol/L | LABORATORY | | | (LAB) | | | SERVICES, | | | | | | CORE | | + + + + + + | CHLORIDE, | 97 | 97 - 108 mmol/L | [facility] [...] + + + + | CALCIUM, | 9.7 | 8.6 - 10.2 | [facility] | [...] MDRD equation recommended by the National | [facility] | | Kidney Disease Education Program. Estimated [...] [facility] | [address] | [place] [address] | | | SERVICES, CORE | [address] | | | + + + + + BASIC METABOLIC SET (NA, K, CL, TCO2, BUN, CR, GLU, CA) (11/17/2018 2:47 PM PDT) + + + + + + | Component | Value | Ref Range | Performed | Pathologist | | | | | At | Signature | + + + + + + | GLUCOSE, | 101 (H) | 70 - 99 mg/dL | [facility] | | | PLASMA | | | LABORATORY | | | (LAB) | | | SERVICES, | | | | | | CORE | | + + + + + + | BUN, PLASMA | 36 (H) | 6 - 20 mg/dL | [facility] | | | (LAB) | | | LABORATORY | | | | | | SERVICES, | | | | | | CORE | | + + + + + + | CREATININE | 1.68 (H) | 0.60 - 1.10 | [facility] | | | PLASMA | | mg/dL | LABORATORY | | | (LAB) | | | SERVICES, | | | | | | CORE | | + + + + + + | EGFR | 38 (L) | >60 mL/min | [facility] | | | - | | | LABORATORY | | | VINCENTIAN | | | SERVICES, | | | | | | CORE | | + + + + + + | EGFR NON | 32 (L) | >60 mL/min | [facility] | | | -BRY | | | LABORATORY | | | RICAN | | | SERVICES, | | | | | | CORE | | + + + + + + | SODIUM, | 134 (L) | 136 - 145 | [facility] | | | PLASMA | | mmol/L | LABORATORY | | | (LAB) | | | SERVICES, | | | | | | CORE | | + + + + + + | POTASSIUM, | 3.8 | 3.4 - 5.0 | [facility] | | | PLASMA | | mmol/L | LABORATORY | | | (LAB) | | | SERVICES, | | | | | | CORE | | + + + + + + | CHLORIDE, | 98 | 97 - 108 mmol/L | [facility] [...] + + + + | CALCIUM, | 9.5 | 8.6 - 10.2 | [facility] | [...] MDRD equation recommended by the National | [facility] | | Kidney Disease Education [...] | + + + + + | [facility] | [address] | [place] [address] | | | SERVICES, CORE | [address] | | | + + + + + MAGNESIUM, PLASMA (11/17/2018 5:42 AM PDT) + +-------+ + + + | Component | Value | Ref Range | Performed | Pathologist | | | | | At | Signature | + +-------+ + + + | MAGNESIUM,P | 2.5 | 1.6 - 2.6 mg/dL | [facility] [...] | + + + + + | [facility] | [address] | [place] [address] | | | SERVICES, CORE | [address] | | | + + + + + BASIC METABOLIC SET (NA, K, CL, TCO2, BUN, CR, GLU, CA) (11/17/2018 5:42 AM PDT) + + + + + + | Component | Value | Ref Range | Performed | Pathologist | | | | | At | Signature | + + + + + + | GLUCOSE, | 96 | 70 - 99 mg/dL | [facility] | | | PLASMA | | | LABORATORY | | | (LAB) | | | SERVICES, | | | | | | CORE | | + + + + + + | BUN, PLASMA | 33 (H) | 6 - 20 mg/dL | [facility] | | | (LAB) | | | LABORATORY | | | | | | SERVICES, | | | | | | CORE | | + + + + + + | CREATININE | 1.39 (H) | 0.60 - 1.10 | [facility] | | | PLASMA | | mg/dL | LABORATORY | | | (LAB) | | | SERVICES, | | | | | | CORE | | + + + + + + | EGFR | 48 (L) | >60 mL/min | [facility] | | | - | | | LABORATORY | | | VINCENTIAN | | | SERVICES, | | | | | | CORE | | + + + + + + | EGFR NON | 40 (L) | >60 mL/min | [facility] | | | -BRY | | | LABORATORY | | | RICAN | | | SERVICES, | | | | | | CORE | | + + + + + + | SODIUM, | 134 (L) | 136 - 145 | [facility] | | | PLASMA | | mmol/L | LABORATORY | | | (LAB) | | | SERVICES, | | | | | | CORE | | + + + + + + | POTASSIUM, | 3.9 | 3.4 - 5.0 | [facility] | | | PLASMA | | mmol/L | LABORATORY | | | (LAB) | | | SERVICES, | | | | | | CORE | | + + + + + + | CHLORIDE, | 99 | 97 - 108 mmol/L | [facility] [...] + + + + | CALCIUM, | 9.8 | 8.6 - 10.2 | [facility] | [...] MDRD equation recommended by the National | [facility] | | Kidney Disease Education [...] | + + + + + | [facility] | [address] | [place] [address] | | | SERVICES, CORE | [address] | | | + + + + + BASIC METABOLIC SET (NA, K, CL, TCO2, BUN, CR, GLU, CA) (11/16/2018 2:50 PM PDT) + + + + + [...] + + + | BUN, PLASMA | 39 (H) | 6 - 20 mg/dL | [facility] | | | (LAB) | | | LABORATORY | | | | | | SERVICES, | | | | | | CORE | | + + + + + + | CREATININE | 1.64 (H) | 0.60 - 1.10 | [facility] | | | PLASMA | | mg/dL | LABORATORY | | | (LAB) | | | SERVICES, | | | | | | CORE | | + + + + + + | EGFR | 40 (L) | >60 mL/min | [facility] | | | - | | | LABORATORY | | | VINCENTIAN | | | SERVICES, | | | | | | CORE | | + + + + + + | EGFR NON | 33 (L) | >60 mL/min | [facility] | | | -BRY | | | LABORATORY | | | RICAN | | | SERVICES, | | | | | | CORE | | + + + + + + | SODIUM, | 134 (L) | 136 - 145 | [facility] | | | PLASMA | | mmol/L | LABORATORY | | | (LAB) | | | SERVICES, | | | | | | CORE | | + + + + + + | POTASSIUM, | 3.2 (L) | 3.4 - 5.0 | [facility] | | | PLASMA | | mmol/L | LABORATORY | | | (LAB) | | | SERVICES, | | | | | | CORE | | + + + + + + | CHLORIDE, | 99 | 97 - 108 mmol/L | [facility] [...] + + + + | CALCIUM, | 9.0 [...] MDRD equation recommended by the National | [facility] | | Kidney Disease Education [...] [facility] | [address] | [place] [address] | | | SERVICES, CORE | [address] | | | + + + + + CREATININE, URINE (11/16/2018 6:30 AM PDT) + +--------+ + + + | Component | Value | Ref Range | Performed | Pathologist | | | | | At | Signature | + +--------+ + + + | CREATININE | 57.40 | mg/dL | [facility] | | | CONC UR | | | LABORATORY | | | | | | SERVICES, | | | | | | CORE | | + +--------+ + + + | URINE | Random | | [facility] | | | INTERVAL | | | LABORATORY | | | | | | SERVICES, | | | | | | CORE | | + +--------+ + + + | URINE | Spot | | [facility] | | | VOLUME | | | LABORATORY | | | | | | SERVICES, | | | | | | CORE | | + +--------+ + + + + + | Specimen | + + | Urine - Urine | | (substance) | + + + + + | Narrative | Performed At | + + + | Reference range based on 24 hour collection time. Patient results | [facility] | | are calculated from actual collection time. | LABORATORY | | | SERVICES, CORE | + + + + + + + + | Performing | Address | City/State/Zipcode | Phone Number | | Organization | | | | + + + + + | [facility] | [address] | [place] [address] | | | SERVICES, CORE | [address] | | | + + + + + SODIUM TOTAL, URINE (11/16/2018 6:30 AM PDT) + +--------+ + + + | Component | Value | Ref Range | Performed | Pathologist | | | | | At | Signature | + +--------+ + + + | SODIUM CONC | 23 | mmol/L | [facility] | | | URINE | | | LABORATORY | | | | | | SERVICES, | | | | | | CORE | | + +--------+ + + + | URINE | Random | | [facility] | | | INTERVAL | | | LABORATORY | | | | | | SERVICES, | | | | | | CORE | | + +--------+ + + + | URINE | Spot | | [facility] | | | VOLUME | | | LABORATORY | | | | | | SERVICES, | | | | | | CORE | | + +--------+ + + + + + | Specimen | + + | Urine - Urine | | (substance) | + + + + + | Narrative | Performed At | + + + | Reference range based on 24 hour collection time. Patient results | [facility] | | are calculated from actual collection time. | LABORATORY | | | [place] | + + + + + + + + | Performing | Address | City/State/Zipcode | Phone Number | | Organization | | | | + + + + + | [facility] | [address] | [place] [address] | | | [place] | [address] | | | + + + + + PHOSPHORUS, PLASMA (11/16/2018 5:47 AM PDT) + +-------+ + + + | Component | Value | Ref Range | Performed | Pathologist | | | | | At | Signature | + +-------+ + + + | PHOSPHORUS, | 4.5 | 2.4 - 4.7 mg/dL | [facility] | | | PLASMA [...] [facility] | [address] | [place] [address] | | | SERVICES, CORE | [address] | | | + + + + + ALBUMIN, PLASMA (11/16/2018 5:47 AM PDT) + +-------+ + + + | Component | Value | Ref Range | Performed | Pathologist | | | | | At | Signature | + +-------+ + + + | ALBUMIN, | 4.1 | 3.5 - 4.7 g/dL | [facility] [...] | + + + + + | [facility] | [address] | [place] [address] | | | SERVICES, CORE | [address] | | | + + + + + CBC (HEMOGRAM) ONLY (11/16/2018 5:47 AM PDT) + +-------+ + + + | Component | Value | Ref Range | Performed | Pathologist | | | | | At | Signature | + +-------+ + + + | WHITE CELL | 8.23 | 3.50 - 10.80 | [facility] | | | COUNT | | K/cu mm | LABORATORY | | | | | | SERVICES, | | | | | | CORE | | + +-------+ + + + | RED CELL | 4.51 | 4.00 - 5.20 | [facility] | | | COUNT | | M/cu mm | LABORATORY | | | | | | SERVICES, | | | | | | CORE | | + +-------+ + + + | HEMOGLOBIN | 15.1 | 12.0 - 16.0 | [facility] | | | | | g/dL | LABORATORY | | | | | | SERVICES, | | | | | | CORE | | + +-------+ + + + | HEMATOCRIT | 42.3 | 36.0 - 46.0 % | [facility] | | | | | | LABORATORY | | | | | | SERVICES, | | | | | | CORE | | + +-------+ + + + | MCV | 93.8 | 80.0 - 100.0 fL | [facility] | | | | | | LABORATORY | | | | | | SERVICES, | | | | | | CORE | | + +-------+ + + + | MCHC | 35.7 | 32.0 - 36.0 | [facility] | | | | | g/dL | LABORATORY | | | | | | SERVICES, | | | | | | CORE | | + +-------+ + + + | RDW SD | 42.9 | 35.1 - 46.3 fL | [facility] | | | | | | LABORATORY | | | | | | SERVICES, | | | | | | CORE | | + +-------+ + + + | PLATELET | 199 | 150 - 400 K/cu | [facility] | | | COUNT | | mm | LABORATORY | | | | | | SERVICES, | | | | | | CORE | | + +-------+ + + + | MPV | 12.0 | 9.7 - 12.3 fL | [facility] | | | | | | LABORATORY | | | | | | SERVICES, | | | | | | CORE | | + +-------+ + + + | NRBC% | 0.0 | 0.0 - 0.3 % | [facility] | | | | | | LABORATORY | | | | | | SERVICES, | | | | | | CORE | | + +-------+ + + + | NRBC# | 0.00 [...] [facility] | [address] | [place] [address] | | | SERVICES, CORE | [address] | | | + + + + + MAGNESIUM, PLASMA (11/16/2018 5:47 AM PDT) + +-------+ + + + | Component | Value | Ref Range | Performed | Pathologist | | | | | At | Signature | + +-------+ + + + | MAGNESIUM,P | 2.6 | 1.6 - 2.6 mg/dL | [facility] | | | LASMA | | | [...] | + + + + + | [facility] | [address] | [place] [address] | | | SERVICES, CORE | [address] | | | + + + + + RENAL FUNCTION SET (NA,K,CL,CO2,BUN,CREAT,GLUC,CA,PHOS,ALB ) (11/16/2018 5:47 AM PDT) + + + + + [...] + + + | BUN, PLASMA | 36 (H) | 6 - 20 mg/dL | [facility] | | | (LAB) | | | LABORATORY | | | | | | SERVICES, | | | | | | CORE | | + + + + + + | CREATININE | 1.37 (H) | 0.60 - 1.10 | [facility] | | | PLASMA | | mg/dL | LABORATORY | | | (LAB) | | | SERVICES, | | | | | | CORE | | + + + + + + | EGFR | 49 (L) | >60 mL/min | [facility] | | | - | | | LABORATORY | | | VINCENTIAN | | | SERVICES, | | | | | | CORE | | + + + + + + | EGFR NON | 40 (L) | >60 mL/min | [facility] | | | -BRY | | | LABORATORY | | | RICAN | | | SERVICES, | | | | | | CORE | | + + + + + + | SODIUM, | 135 (L) | 136 - 145 | [facility] | | | PLASMA | | mmol/L | LABORATORY | | | (LAB) | | | SERVICES, | | | | | | CORE | | + + + + + + | POTASSIUM, | 3.2 (L) | 3.4 - 5.0 | [facility] | | | PLASMA | | mmol/L | LABORATORY | | | (LAB) | | | SERVICES, | | | | | | CORE | | + + + + + + | CHLORIDE, | 98 | 97 - 108 mmol/L | [facility] [...] + + + + | CALCIUM, | 9.1 | 8.6 - 10.2 | [facility] | | | PLASMA | | mg/dL | LABORATORY | | | (LAB) | | | SERVICES, | | | | | | CORE | | + + + + + + | CALCIUM(ALB | 8.9 | 8.6 - 10.2 | [facility] | | | CORRECTED) | | mg/dL | LABORATORY | | | | | | SERVICES, | | | | | | CORE | | + + + + + + | ALBUMIN, | 4.2 | 3.5 - 4.7 g/dL | [facility] | | | PLASMA | | | LABORATORY | | | (LAB) | | | SERVICES, | | | | | | CORE | | + + + + + + | PHOSPHORUS, | 4.4 | 2.4 - 4.7 mg/dL | [facility] | | | PLASMA [...] MDRD equation recommended by the National | [facility] | | Kidney Disease Education [...] [facility] | [address] | [place] [address] | | | SERVICES, CORE | [address] | | | + + + + + 12 LEAD ECG (11/16/2018 3:20 AM PDT) + + + + + + | Component | Value | Ref Range | Performed | Pathologist | | | | | At | Signature | + + + + + + | VENTRICULAR | 92 | bpm | [facility] | | | RATE | | | OF | | | | | | CARDIOLOGY | | + + + + + + | ATRIAL RATE | 91 | ms | [facility] | | | | | | OF | | | | | | CARDIOLOGY | | + + + + + + | P-R | 163 | ms | [facility] | | | INTERVAL | | | OF | | | | | | CARDIOLOGY | | + + + + + + | P AXIS | 24 | deg | [facility] | | | | | | OF | | | | | | CARDIOLOGY | | + + + + + + | QRS | 87 | ms | [facility] | | | DURATION | | | OF | | | | | | CARDIOLOGY | | + + + + + + | QT | 346 | ms | [facility] | | | | | | OF | | | | | | CARDIOLOGY | | + + + + + + | QTC-BAZETT | 427 | ms | [facility] | | | | | | OF | | | | | | CARDIOLOGY | | + + + + + + | R AXIS | -14 | deg | [facility] | | | | | | OF | | | | | | CARDIOLOGY | | + + + + + + | T AXIS | -20 | deg | [facility] | | [...] [facility] | | | IMPRESSION | deviation- OTHERWISE | | OF | | | | NORMAL ECG - | | CARDIOLOGY | | + + + + + + | ECG | Electronically signed | | [facility] | | | IMPRESSION | by: CARIE MEI | | OF | | | | 11-16-2018 17:54:43 | | CARDIOLOGY | | + + [...] + | [facility] OF | [address] | [place], [place] | | | CARDIOLOGY | [address] | [address] | | + + + + + MAGNESIUM, PLASMA (11/16/2018 12:40 AM PDT) + +-------+ + + + | Component | Value | Ref Range | Performed | Pathologist | | | | | At | Signature | + +-------+ + + + | MAGNESIUM,P | 2.6 | 1.6 - 2.6 mg/dL | [facility] [...] [facility] | [address] | [place] [address] | | | SERVICES, CORE | [address] | | | + + + + + BASIC METABOLIC SET (NA, K, CL, TCO2, BUN, CR, GLU, CA) (11/16/2018 12:40 AM PDT) + + + + + + | Component | Value | Ref Range | Performed | Pathologist | | | | | At | Signature | + + + + + + | GLUCOSE, | 132 (H) | 70 - 99 mg/dL | [facility] | | | PLASMA | | | LABORATORY | | | (LAB) | | | SERVICES, | | | | | | CORE | | + + + + + + | BUN, PLASMA | 37 (H) | 6 - 20 mg/dL | [facility] | | | (LAB) | | | LABORATORY | | | | | | SERVICES, | | | | | | CORE | | + + + + + + | CREATININE | 1.26 (H) | 0.60 - 1.10 | [facility] | | | PLASMA | | mg/dL | LABORATORY | | | (LAB) | | | SERVICES, | | | | | | CORE | | + + + + + + | EGFR | 54 (L) | >60 mL/min | [facility] | | | - | | | LABORATORY | | | VINCENTIAN | | | SERVICES, | | | | | | CORE | | + + + + + + | EGFR NON | 44 (L) | >60 mL/min | [facility] | | | -BRY | | | LABORATORY | | | RICAN | | | SERVICES, | | | | | | CORE | | + + + + + + | SODIUM, | 134 (L) | 136 - 145 | [facility] | | | PLASMA | | mmol/L | LABORATORY | | | (LAB) | | | SERVICES, | | | | | | CORE | | + + + + + + | POTASSIUM, | 3.3 (L) | 3.4 - 5.0 | [facility] | | | PLASMA | | mmol/L | LABORATORY | | | (LAB) | | | SERVICES, | | | | | | CORE | | + + + + + + | CHLORIDE, | 98 | 97 - 108 mmol/L | [facility] [...] + + + + | CALCIUM, | 9.6 | 8.6 - 10.2 | [facility] | [...] MDRD equation recommended by the National | [facility] | | Kidney Disease Education Program. Estimated [...] | [facility] | [address] | [place] [address] | | | SERVICES, CORE | [address] | | | + + + + + RENAL FUNCTION SET (NA,K,CL,CO2,BUN,CREAT,GLUC,CA,PHOS,ALB ) (11/15/2018 5:47 PM PDT) + + + + + + | Component | Value | Ref Range | Performed | Pathologist | | | | | At | Signature | + + + + + + | GLUCOSE, | 113 (H) | 70 - 99 mg/dL | [facility] | | | PLASMA | | | LABORATORY | | | (LAB) | | | SERVICES, | | | | | | CORE | | + + + + + + | BUN, PLASMA | 35 (H) | 6 - 20 mg/dL | [facility] | | | (LAB) | | | LABORATORY | | | | | | SERVICES, | | | | | | CORE | | + + + + + + | CREATININE | 1.28 (H) | 0.60 - 1.10 | [facility] | | | PLASMA | | mg/dL | LABORATORY | | | (LAB) | | | SERVICES, | | | | | | CORE | | + + + + + + | EGFR | 53 (L) | >60 mL/min | [facility] | | | - | | | LABORATORY | | | VINCENTIAN | | | SERVICES, | | | | | | CORE | | + + + + + + | EGFR NON | 43 (L) | >60 mL/min | [facility] | | | -BRY | | | LABORATORY | | | RICAN | | | SERVICES, | | | | | | CORE | | + + + + + + | SODIUM, | 135 (L) | 136 - 145 | [facility] | | | PLASMA | | mmol/L | LABORATORY | | | (LAB) | | | SERVICES, | | | | | | CORE | | + + + + + + | POTASSIUM, | 2.9 (L) | 3.4 - 5.0 | [facility] | | | PLASMA | | mmol/L | LABORATORY | | | (LAB) | | | SERVICES, | | | | | | CORE | | + + + + + + | CHLORIDE, | 99 | 97 - 108 mmol/L | [facility] [...] + + + + | CALCIUM, | 8.7 | 8.6 - 10.2 | [facility] | | | PLASMA | | mg/dL | LABORATORY | | | (LAB) | | | SERVICES, | | | | | | CORE | | + + + + + + | CALCIUM(ALB | 8.7 | 8.6 - 10.2 | [facility] | | | CORRECTED) | | mg/dL | LABORATORY | | | | | | SERVICES, | | | | | | CORE | | + + + + + + | ALBUMIN, | 4.0 | 3.5 - 4.7 g/dL | [facility] | | | PLASMA | | | LABORATORY | | | (LAB) | | | SERVICES, | | | | | | CORE | | + + + + + + | PHOSPHORUS, | 4.5 | 2.4 - 4.7 mg/dL | [facility] | | | PLASMA [...] + + + + | ANION | 8 [...] MDRD equation recommended by the National | [facility] | | Kidney Disease Education [...] [facility] | [address] | [place] [address] | | | SERVICES, CORE | [address] | | | + + + + + MAGNESIUM, PLASMA (11/15/2018 5:47 PM PDT) + +-------+ + + + | Component | Value | Ref Range | Performed | Pathologist | | | | | At | Signature | + +-------+ + + + | MAGNESIUM,P | 2.6 | 1.6 - 2.6 mg/dL | [facility] [...] [facility] | [address] | [place] [address] | | | [place] | [address] | | | + + + + + MAGNESIUM, PLASMA (11/15/2018 11:20 AM PDT) + +-------+ + + + | Component | Value | Ref Range | Performed | Pathologist | | | | | At | Signature | + +-------+ + + + | MAGNESIUM,P | 2.6 | 1.6 - 2.6 mg/dL | [facility] [...] [facility] | [address] | [place] [address] | | | SERVICES, CORE | [address] | | | + + + + + BASIC METABOLIC SET (NA, K, CL, TCO2, BUN, CR, GLU, CA) (11/15/2018 11:20 AM PDT) + + + + + + | Component | Value | Ref Range | Performed | Pathologist | | | | | At | Signature | + + + + + + | GLUCOSE, | 102 (H) | 70 - 99 mg/dL | [facility] | | | PLASMA | | | LABORATORY | | | (LAB) | | | SERVICES, | | | | | | CORE | | + + + + + + | BUN, PLASMA | 31 (H) | 6 - 20 mg/dL | [facility] | | | (LAB) | | | LABORATORY | | | | | | SERVICES, | | | | | | CORE | | + + + + + + | CREATININE | 1.31 (H) | 0.60 - 1.10 | [facility] | | | PLASMA | | mg/dL | LABORATORY | | | (LAB) | | | SERVICES, | | | | | | CORE | | + + + + + + | EGFR | 51 (L) | >60 mL/min | [facility] | | | - | | | LABORATORY | | | VINCENTIAN | | | SERVICES, | | | | | | CORE | | + + + + + + | EGFR NON | 42 (L) | >60 mL/min | [facility] | [...] + + + + | POTASSIUM, | 4.1 | 3.4 - 5.0 | [facility] | | | PLASMA | | mmol/L | LABORATORY | | | (LAB) | | | SERVICES, | | | | | | CORE | | + + + + + + | CHLORIDE, | 102 | 97 - 108 mmol/L | [facility] | | | PLASMA | | | LABORATORY | | | (LAB) | | | SERVICES, | | | | | | CORE | | + + + + + + | TOTAL CO2, | 31 | 21 - 32 mmol/L | [facility] [...] + + + + | POTASSIUM | Sl [...] Performed At | + + + | Sample hemolyzed. Results for LD, K, and AST may be inaccurate. | [facility] | | Refer to comment under test. GFR is estimated using the MDRD | LABORATORY | | equation recommended by the National Kidney Disease Education Program. | SERVICES, CORE | | Estimated GFR Interpretive Information: <60 mL/min/1.73 sq m | | | Chronic Kidney Disease <15 mL/min/1.73 sq m | | | Kidney Failure Estimated GFR greater than 60 mL/min/1.73 | | | sq m is of limited clinical value. The MDRD equation is not valid in | | | the following situations: - Patients under 18 years of age - Severe | | | malnutrition or obesity - Vegetarian diet - Rapidly changing kidney | | | function - Amputees, paraplegics, or other muscle-wasting diseases | | + + + + + + + + | Performing | Address | City/State/Zipcode | Phone Number | | Organization | | | | + + + + + | [facility] | [address] | [place] [address] | | | SERVICES, CORE | [address] | | | + + + + + TRANSTHORACIC ECHOCARDIOGRAM, ADULT (11/15/2018 9:10 AM PDT) + + + + + + | Component | Value | Ref Range | Performed | Pathologist | | | | | At | Signature | + + + + + + | AOV VMN | 2.2 | | [facility] | | | (AORTIC | | | OF | | | VALVE) | | | CARDIOLOGY | | + + + + + + | BIPLANE, EF | 65 | | [facility] | | | | | | OF | | | | | | CARDIOLOGY | | + + + + + + | EJECTION | 60 to 65 | | [facility] | | | FRACTION | | | OF | | | | | | CARDIOLOGY | | + + + + + + | LA | 2.4 | | [facility] | | | DIMENSION | | | OF | | | | | | CARDIOLOGY | | + + + + + + | LVIDD | 4.0 | | [facility] | | | | | | OF | | | | | | CARDIOLOGY | | + + + + + + | MV E? | 0.1 | | [facility] | | | | | | OF | | | | | | CARDIOLOGY | | + + + + + + | RVSP | 41 | | [facility] | | | | | | OF | | | | | | CARDIOLOGY | | + + + + + + | RV TAPSE | 1.6 | | [facility] | | | | | | OF | | | | | | CARDIOLOGY | | + + + + + + | RV TDI S? | 7.9 | | [facility] | | | | | | OF | | | | | | CARDIOLOGY | | + + + + + + | TR VMAX | 2.8 | | [facility] | | | [...] + + | | + + + ----+ + | Narrative | Performed At | + ----+ + | [facility] | [facility] DEPT OF | | [facility] [address] | CARDIOLOGY | | [place], [place] [address] Ph: | | | Pt Name: GEMA BARRON | | | Study Date/Time 11/15/2018 / 9:10:37 [id number] | | | Most recent prior: 10/12/2017Acc #: [id number] | | | No. previous echos: 2DOB: 1965 53 years Heart | | | Rate: 93 bpmHeight: 64.0 in Blood | | | Pressure: 99/76 mm/HgWeight: 195.0 lb | | | Gender: FBSA: 1.94 m | | | Order ID: [id number] Study | | | Location: KSonographer: Stephen Cool MA, [facility] AE, PESonographer 2: | | | Tariq Parra:Referring Provider: Mykel Terrazas | | | Performed: 2D, Color flow, Spectral Doppler.Study Quality: This was a | | | technically difficult study, but image quality improved with echo | | | contrast.Exam Indication: Heart failureHistory: Gema Barron is a 52 | | | y.o. female with WHO Group I pulmonary arterial hypertension | | | transferred from an OSH in [place] for management of severe, | | | symptomatic PH. Patient history has been obtained from the EHR | | | Transthoracic Echocardiographic Report | | | + | | | ---------+ Final Impressions: | | | | | | | | | | | | | | | 1. The left ventricular size is normal. | | | 2. The LV function is | | | normal. | | | 3. Mildly-moderately reduced LV stroke volume, with | | | estimated SVI of 25 mL/m^2. | | | | | | 4. RV cavity size is moderately enlarged. RV wall thickness | | | is mildly increased. RV global systolic function is | | | moderately reduced. The estimated right ventricular systolic | | | pressure is mildly elevated (RVSP = 41.4 mmHg). 5. Moderately | | | enlarged right atrium. | | | 6. Compared to the most recent exam dated 10/12/2017, | | | the RV size is smaller and function has improved. There is less | | | TR and estimated RVSP is substantially lower | | | (previously 97 mmHg). | | | | | | | | | + | | | + Description of Findings: Cardiac Rhythm: Normal sinus | | | rhythm.Left Ventricle: The left ventricular size is normal. Visually | | | estimated left ventricular ejection fraction is 60 - 65%. There is no | | | left ventricular hypertrophy. The interventricular septum is flattened | | | in diastole ('D' shaped left ventricle) consistent with right | | | ventricular volume overload. The LV diastolic filling pattern has | | | impaired relaxation. The ejection fraction is 65.3 % as measured by | | | Rosa's biplane method. The LV function is normal. Mildly-moderately | | | reduced LV forward stroke volume, with estimated SVI of 25 mL/m^2. | | | Due to poor endocardial definition, ultrasound contrast was used | | | (Lumason).Left Ventricular Wall Motion: Left ventricular systolic | | | thickening is normal in all segments.Atria: Left atrial size is | | | normal. Moderately enlarged right atrium.Right Ventricle: Right | | | ventricular cavity size is moderately enlarged. RV wall thickness is | | | mildly increased. The RV global systolic function is moderately | | | reduced. TAPSE measures 1.6cm. The RV TDI s' velocity is | | | 7.9cm/sec.Aortic Valve: The aortic valve is trileaflet and normal in | | | structure and function. No indication of aortic valve | | | regurgitation.Mitral Valve: The mitral valve is structurally normal. | | | No evidence of mitral valve regurgitation.Tricuspid Valve: The | | | tricuspid valve is structurally normal. Trace tricuspid regurgitation. | | | The tricuspid regurgitant velocity is 2.89 m/s, and with an assumed | | | right atrial pressure of 8 mmHg, the estimated right ventricular | | | systolic pressure is mildly elevated at 41.4 mmHg.Pulmonic Valve: The | | | pulmonic valve is structurally normal. Trace pulmonary valve | | | regurgitation.Aorta: Visualized portions of the ascending aorta and | | | aortic root appear normal.Venous: The inferior vena cava was dilated, | | | with respiratory size variation greater than 50%.Pericardium: A | | | trivial pericardial effusion is seen.2D Measurements | | | Doppler Measurements 2D NL Values Aortic | | | MitralLVID(d) 3.99 (3.5-5.7cm) Max Rainer 1.00 | | | Peak E cm | | | m/sLVID(s) 2.91 Mean grad 2.2 Peak A | | | cm mmHgIVS(d) | | | 1.19 (0.6-1.1cm) LVOT Rainer 0.84 E/A Ratio | | | cm m/sLVPW(d) 1.01 | | | (0.6-1.1cm) LVOT VTI 0.129 TDI (E/e') cm | | | mLA A/Ps 2D 2.40 (2.7-3.9cm) LVOT | | | Diam 2.20 MV mn gd cm | | | cmLVEDV index 36.75 LVOT SV 25.3 MR | | | ERO ml/m | | | indexed ml/m | | | Biplane EF 65.3 Tricuspid Pulmonic | | | % TR Vmax 2.89 PV Vmax | | | 0.8 m/s | | | m/s | | | RA Press 8 RVOT VTI | | | mmHg | | | RVSP 41 PV mn gd | | | mmHg | | | Aorta: Index: | | | Ao Sinus 3.30 (2.1-3.5cm) 17.1 | | | cm | | | mm/m | | | Asc Ao 2.80 | | | 14.5 (prox) | | | cm mm/m | | | Evaluation of chamber size and geometry is accomplished through the | | | incorporation of linear, volumetric, and indexed values Report | | | electronically signed by: [id number] Paulette Hall MD (11/15/2018, | | | 1:34:28 PM)Fellow(s) participating in diagnosis: Wallace Roberts; | | | Final | | | cm mm/m | | | Asc Ao 2.80 14.5 | | | (prox) cm mm/m | | |Evaluation of chamber size and geometry is accomplished through the incorporation of | | |linear, volumetric, and indexed values | | | | | |Report electronically signed by: [id number] Paulette Hall MD (11/15/2018, 1:34:28 PM) | | |Fellow(s) participating in diagnosis: Wallace Roberts; | | | | | | | | | | | | Final | | + ----+ + + + | Procedure Note | + + | Interface, Cardiology Results - 11/15/2018 1:34 PM [facility] | | [facility]chocardi[facility] [address] [place] [address] | | [place], [place] [address] Pt Name: GEMA Hughes | | JAKI Study Date/Time 11/15/2018 / 9:10:37 AMMRN: [id number] Most | | recent prior: 10/12/2017Acc #: [id number] No. previous echos: 2DOB: | | 1965 53 years Heart Rate: 93 bpmHeight: 64.0 in Blood | | Pressure: 99/76 mm/HgWeight: 195.0 lb Gender: FBSA: | | 1.94 m | | Order ID: [id number] [facility] Stephen | | Silvina SELF, [facility] AE, PESonographer 2: Tariq Gerberow:Referring Provider: Mykel | | A ChapaModalities Performed: 2D, Color flow, Spectral Doppler.Study Quality: This was a | | technically difficult study, but image quality improved with echo contrast.Exam | | Indication: Heart failureHistory: Gema Barron is a 52 y.o. female with WHO Group I | | pulmonary arterial hypertension transferred from an OSH in [place] for management of | | severe, symptomatic PH. Patient history has been obtained from the EHR Transthoracic | | Echocardiographic | | Report+ + | | Final Impressions: | | | | 1. The left ventricular | | size is normal. 2. The LV function is normal. | | 3. Mildly-moderately reduced LV stroke | | volume, with estimated SVI of 25 mL/m^2. | | 4. RV cavity size is moderately enlarged. RV wall | | thickness is mildly increased. RV global systolic function is moderately | | reduced. The estimated right ventricular systolic pressure is mildly elevated (RVSP | | = 41.4 mmHg). 5. Moderately enlarged right atrium. | | 6. Compared to the most recent exam dated 10/12/2017, the RV size is smaller | | and function has improved. There is less TR and estimated RVSP is | | substantially lower (previously 97 mmHg). | | | | + + | | Description of Findings: Cardiac Rhythm: Normal sinus rhythm.Left Ventricle: The left | | ventricular size is normal. Visually estimated left ventricular ejection fraction is 60 | | - 65%. There is no left ventricular hypertrophy. The interventricular septum is | | flattened in diastole ('D' shaped left ventricle) consistent with right ventricular | | volume overload. The LV diastolic filling pattern has impaired relaxation. The ejection | | fraction is 65.3 % as measured by Rosa's biplane method. The LV function is normal. | | Mildly-moderately reduced LV forward stroke volume, with estimated SVI of 25 mL/m^2. Due | | to poor endocardial definition, ultrasound contrast was used (Lumason).Left Ventricular | | Wall Motion: Left ventricular systolic thickening is normal in all segments.Atria: Left | | atrial size is normal. Moderately enlarged right atrium.Right Ventricle: Right | | ventricular cavity size is moderately enlarged. RV wall thickness is mildly increased. | | The RV global systolic function is moderately reduced. TAPSE measures 1.6cm. The RV TDI | | s' velocity is 7.9cm/sec.Aortic Valve: The aortic valve is trileaflet and normal in | | structure and function. No indication of aortic valve regurgitation.Mitral Valve: The | | mitral valve is structurally normal. No evidence of mitral valve regurgitation.Tricuspid | | Valve: The tricuspid valve is structurally normal. Trace tricuspid regurgitation. The | | tricuspid regurgitant velocity is 2.89 m/s, and with an assumed right atrial pressure of | | 8 mmHg, the estimated right ventricular systolic pressure is mildly elevated at 41.4 | | mmHg.Pulmonic Valve: The pulmonic valve is structurally normal. Trace pulmonary valve | | regurgitation.Aorta: Visualized portions of the ascending aorta and aortic root appear | | normal.Venous: The inferior vena cava was dilated, with respiratory size variation | | greater than 50%.Pericardium: A trivial pericardial effusion is seen.2D Measurements | | Doppler Measurements 2D NL Values Aortic | | MitralLVID(d) 3.99 (3.5-5.7cm) Max Rainer 1.00 Peak E cm | | m/sLVID(s) 2.91 Mean grad 2.2 Peak A cm | | mmHgIVS(d) 1.19 (0.6-1.1cm) LVOT Rainer 0.84 E/A Ratio | | cm m/sLVPW(d) 1.01 (0.6-1.1cm) LVOT VTI 0.129 TDI (E/e') | | cm mLA A/Ps 2D 2.40 (2.7-3.9cm) LVOT Diam 2.20 MV | | mn gd cm cmLVEDV index 36.75 LVOT SV | | 25.3 MR ERO ml/m | | indexed ml/m | | Biplane EF 65.3 Tricuspid Pulmonic % TR | | Vmax 2.89 PV Vmax 0.8 m/s | | m/s RA Press 8 RVOT VTI | | mmHg RVSP 41 PV mn gd | | mmHg Aorta: Index: | | Ao Sinus 3.30 (2.1-3.5cm) 17.1 | | cm mm/m | | Asc Ao 2.80 14.5 | | (prox) cm mm/m | | Evaluation of chamber size and geometry is accomplished through the incorporation of | | linear, volumetric, and indexed values Report electronically signed by: [id number] | | Paulette Hall MD (11/15/2018, 1:34:28 PM)Fellow(s) participating in diagnosis: Wallace | | Alejandra; Final | |regurgitation. | |Aorta: Visualized portions of the ascending aorta and aortic root appear normal. | |Venous: The inferior vena cava was dilated, with respiratory size variation greater | |than 50%. | |Pericardium: A trivial pericardial effusion is seen. | |2D Measurements Doppler Measurements | | | | 2D NL Values Aortic Mitral | |LVID(d) 3.99 (3.5-5.7cm) Max Rainer 1.00 Peak E | | cm m/s | |LVID(s) 2.91 Mean grad 2.2 Peak A | | cm mmHg | |IVS(d) 1.19 (0.6-1.1cm) LVOT Rainer 0.84 E/A Ratio | | cm m/s | |LVPW(d) 1.01 (0.6-1.1cm) LVOT VTI 0.129 TDI (E/e') | | cm m | |LA A/Ps 2D 2.40 (2.7-3.9cm) LVOT Diam 2.20 MV mn gd | | cm cm | |LVEDV index 36.75 LVOT SV 25.3 MR ERO | | ml/m indexed ml/m | |Biplane EF 65.3 Tricuspid Pulmonic | | % TR Vmax 2.89 PV Vmax 0.8 | | m/s m/s | | RA Press 8 RVOT VTI | | mmHg | | RVSP 41 PV mn gd | | mmHg | | | | Aorta: Index: | | Ao Sinus 3.30 (2.1-3.5cm) 17.1 | | cm mm/m | | Asc Ao 2.80 14.5 | | (prox) cm mm/m | |Evaluation of chamber size and geometry is accomplished through the incorporation of | |linear, volumetric, and indexed values | | | |Report electronically signed by: [id number] Paulette Hall MD (11/15/2018, 1:34:28 PM) | |Fellow(s) participating in diagnosis: Wallace Roberts; | | | | | | | | Final | + + + + + + + | Performing | Address | City/State/Zipcode | Phone Number | | Organization | | | | + + + + + | [facility] | [address] | [place], [place] | | | CARDIOLOGY | [address] | [phone] | | + + + + + CBC (HEMOGRAM) ONLY (11/15/2018 1:37 AM PDT) + +-------+ + + + | Component | Value | Ref Range | Performed | Pathologist | | | | | At | Signature | + +-------+ + + + | WHITE CELL | 7.88 | 3.50 - 10.80 | [facility] | | | COUNT | | K/cu mm | LABORATORY | | | | | | SERVICES, | | | | | | CORE | | + +-------+ + + + | RED CELL | 4.50 | 4.00 - 5.20 | [facility] | | | COUNT | | M/cu mm | LABORATORY | | | | | | SERVICES, | | | | | | CORE | | + +-------+ + + + | HEMOGLOBIN | 15.0 | 12.0 - 16.0 | [facility] | | | | | g/dL | LABORATORY | | | | | | SERVICES, | | | | | | CORE | | + +-------+ + + + | HEMATOCRIT | 42.8 | 36.0 - 46.0 % | [facility] | | | | | | LABORATORY | | | | | | SERVICES, | | | | | | CORE | | + +-------+ + + + | MCV | 95.1 | 80.0 - 100.0 fL | [facility] | | | | | | LABORATORY | | | | | | SERVICES, | | | | | | CORE | | + +-------+ + + + | MCHC | 35.0 | 32.0 - 36.0 | [facility] | | | | | g/dL | LABORATORY | | | | | | SERVICES, | | | | | | CORE | | + +-------+ + + + | RDW SD | 44.2 | 35.1 - 46.3 fL | [facility] | | | | | | LABORATORY | | | | | | SERVICES, | | | | | | CORE | | + +-------+ + + + | PLATELET | 237 | 150 - 400 K/cu | [facility] | | | COUNT | | mm | LABORATORY | | | | | | SERVICES, | | | | | | CORE | | + +-------+ + + + | MPV | 12.1 | 9.7 - 12.3 fL | [facility] | | | | | | LABORATORY | | | | | | SERVICES, | | | | | | CORE | | + +-------+ + + + | NRBC% | 0.0 | 0.0 - 0.3 % | [facility] | | | | | | LABORATORY | | | | | | SERVICES, | | | | | | CORE | | + +-------+ + + + | NRBC# | 0.00 [...] [facility] | [address] | [place] [address] | | | SERVICES, CORE | [address] | | | + + + + + RENAL FUNCTION SET (NA,K,CL,CO2,BUN,CREAT,GLUC,CA,PHOS,ALB ) (11/15/2018 1:37 AM PDT) + + + + + + | Component | Value | Ref Range | Performed | Pathologist | | | | | At | Signature | + + + + + + | GLUCOSE, | 113 (H) | 70 - 99 mg/dL | [facility] | | | PLASMA | | | LABORATORY | | | (LAB) | | | SERVICES, | | | | | | CORE | | + + + + + + | BUN, PLASMA | 30 (H) | 6 - 20 mg/dL | [facility] | | | (LAB) | | | LABORATORY | | | | | | SERVICES, | | | | | | CORE | | + + + + + + | CREATININE | 1.25 (H) | 0.60 - 1.10 | [facility] | | | PLASMA | | mg/dL | LABORATORY | | | (LAB) | | | SERVICES, | | | | | | CORE | | + + + + + + | EGFR | 54 (L) | >60 mL/min | [facility] | | | - | | | LABORATORY | | | VINCENTIAN | | | SERVICES, | | | | | | CORE | | + + + + + + | EGFR NON | 45 (L) | >60 mL/min | [facility] | | | -BRY | | | LABORATORY | | | RICAN | | | SERVICES, | | | | | | CORE | | + + + + + + | SODIUM, | 136 | 136 - 145 | [facility] | | | PLASMA | | mmol/L | LABORATORY | | | (LAB) | | | SERVICES, | | | | | | CORE | | + + + + + + | POTASSIUM, | 3.3 (L) | 3.4 - 5.0 | [facility] | | | PLASMA | | mmol/L | LABORATORY | | | (LAB) | | | SERVICES, | | | | | | CORE | | + + + + + + | CHLORIDE, | 99 | 97 - 108 mmol/L | [facility] [...] + + + + | CALCIUM, | 9.5 | 8.6 - 10.2 | [facility] | | | PLASMA | | mg/dL | LABORATORY | | | (LAB) | | | SERVICES, | | | | | | CORE | | + + + + + + | CALCIUM(ALB | 9.3 | 8.6 - 10.2 | [facility] | | | CORRECTED) | | mg/dL | LABORATORY | | | | | | SERVICES, | | | | | | CORE | | + + + + + + | ALBUMIN, | 4.3 | 3.5 - 4.7 g/dL | [facility] | | | PLASMA | | | LABORATORY | | | (LAB) | | | SERVICES, | | | | | | CORE | | + + + + + + | PHOSPHORUS, | 3.1 | 2.4 - 4.7 mg/dL | [facility] | | | PLASMA [...] + + + + | ANION | 6 | 4 - 11 mmol/L [...] MDRD equation recommended by the National | [facility] | | Kidney Disease Education [...] | + + + + + | [facility] | [address] | [place] [address] | | | [place] | [address] | | | + + + + + LACTATE (11/14/2018 10:37 PM PDT) + +-------+ + + + | Component | Value | Ref Range | Performed | Pathologist | | | | | At | Signature | + +-------+ + + + | LACTATE | 0.9 | mmol/L | [facility] | | | | | | LABORATORY | | | | | | SERVICES, | | | | | | CORE | | + +-------+ + + + + + | Specimen | + + | Blood - Blood | | (substance) | + + + + + | Narrative | Performed At | + + + | Reference Range: Venous blood: 0.5 - 2.2 mmol/L Critical >= 4.0 | [facility] | | mmol/L Arterial blood: 0.5 - 1.6 mmol/L Critical >= 4.0 mmol/L | LABORATORY | | | [place] [place] | + + + + + + + + | Performing | Address | City/State/Zipcode | Phone Number | | Organization | | | | + + + + + | [facility] | [address] | [place] [address] | | | SERVICESRAN | [address] | | | + + + + + X-RAY CHEST 1 VIEW (11/14/2018 9:39 PM PDT) + + | Specimen | + + | | + + + + + | Narrative | Performed At | + + + | EXAM: CHEST 1 VIEW HISTORY: Dyspnea, history of pulmonary HTN | [facility] | | COMPARISON: 10/12/2017 FINDINGS: The cardiomediastinal | RADIOLOGY VOICE | | contour is stable. Mild bibasilar atelectasis. No focal consolidation. | RECOGNITION 2 | | There is no pleural effusion or pneumothorax. There is no pulmonary | | | edema. No acute osseous abnormality. IMPRESSION: Mild | | | bibasilar atelectasis with no evidence of focal consolidation. I | | | have personally reviewed the images and, if necessary, edited the | | | report. I agree with the report as now presented. Final | | | signature: Ceci Garber MD 11/15/2018 9:52 AM Preliminary: | | | Ita Dillon MD Dictation initiated: Ita Dillon MD | | | 11/15/2018 8:22 AM | | + + + + + | Procedure Note | + + | Service Account, Radiant Res In Interface - 11/15/2018 9:53 AM PDT EXAM: CHEST 1 | | VIEW HISTORY: Dyspnea, history of pulmonary HTN COMPARISON: 10/12/2017 FINDINGS: The | | cardiomediastinal contour is stable. Mild bibasilar atelectasis. No focal consolidation. | | There is no pleural effusion or pneumothorax. There is no pulmonary edema. No acute | | osseous abnormality. IMPRESSION: Mild bibasilar atelectasis with no evidence of focal | | consolidation. I have personally reviewed the images and, if necessary, edited the | | report. I agree with the report as now presented. Final signature: Ceci Garber MD | | 11/15/2018 9:52 AM Preliminary: Ita Dillon MD Dictation initiated: Ita Lin | MD Santana 11/15/2018 8:22 AM | | | |IMPRESSION: | | | |Mild bibasilar atelectasis with no evidence of focal consolidation. | | | |I have personally reviewed the images and, if necessary, edited the report. I agree with e report as now presented. | | | |Final signature: Ceci Garber MD 11/15/2018 9:52 AM | |Preliminary: Ita Dillon MD | |Dictation initiated: Ita Dillon MD 11/15/2018 8:22 AM | + + + +---------+ + + | Performing | Address | City/State/Zipcode | Phone Number | | Organization | | | | + +---------+ + + | [facility] | | | | | VOICE RECOGNITION 2 | | | | + +---------+ + + CBC AND AUTO DIFF (11/14/2018 8:55 PM PDT) + +---------+ + + + | Component | Value | Ref Range | Performed | Pathologist | | | | | At | Signature | + +---------+ + + + | WHITE CELL | 6.88 | 3.50 - 10.80 | [facility] | | | COUNT | | K/cu mm | LABORATORY | | | | | | SERVICES, | | | | | | CORE | | + +---------+ + + + | RED CELL | 4.08 | 4.00 - 5.20 | [facility] | | | COUNT | | M/cu mm | LABORATORY | | | | | | SERVICES, | | | | | | CORE | | + +---------+ + + + | HEMOGLOBIN | 14.0 | 12.0 - 16.0 | [facility] | | | | | g/dL | LABORATORY | | | | | | SERVICES, | | | | | | CORE | | + +---------+ + + + | HEMATOCRIT | 39.4 | 36.0 - 46.0 % | [facility] | | | | | | LABORATORY | | | | | | SERVICES, | | | | | | CORE | | + +---------+ + + + | MCV | 96.6 | 80.0 - 100.0 fL | [facility] | | | | | | LABORATORY | | | | | | SERVICES, | | | | | | CORE | | + +---------+ + + + | MCHC | 35.5 | 32.0 - 36.0 | [facility] | | | | | g/dL | LABORATORY | | | | | | SERVICES, | | | | | | CORE | | + +---------+ + + + | RDW SD | 45.1 | 35.1 - 46.3 fL | [facility] | | | | | | LABORATORY | | | | | | SERVICES, | | | | | | CORE | | + +---------+ + + + | PLATELET | 185 | 150 - 400 K/cu | [facility] | | | COUNT | | mm | LABORATORY | | | | | | SERVICES, | | | | | | CORE | | + +---------+ + + + | MPV | 12.1 | 9.7 - 12.3 fL | [facility] | | | | | | LABORATORY | | | | | | SERVICES, | | | | | | CORE | | + +---------+ + + + | NRBC% | 0.0 | 0.0 - 0.3 % | [facility] | | | | | | LABORATORY | | | | | | SERVICES, | | | | | | CORE | | + +---------+ + + + | NRBC# | 0.00 | 0.00 - 0.02 | [facility] | | | | | K/cu mm | LABORATORY | | | | | | SERVICES, | | | | | | CORE | | + +---------+ + + + | NEUTROPHIL | 69.3 | 50.0 - 70.0 % | [facility] | | | % | | | LABORATORY | | | | | | SERVICES, | | | | | | CORE | | + +---------+ + + + | LYMPHOCYTE | 19.6 | 18.0 - 42.0 % | [facility] | | | % | | | LABORATORY | | | | | | SERVICES, | | | | | | CORE | | + +---------+ + + + | MONOCYTE % | 7.1 | 3.5 - 9.0 % | [facility] | | | | | | LABORATORY | | | | | | SERVICES, | | | | | | CORE | | + +---------+ + + + | EOS % | 3.1 (H) | 1.0 - 3.0 % | [facility] | | | | | | LABORATORY | | | | | | SERVICES, | | | | | | CORE | | + +---------+ + + + | BASO % | 0.6 | 0.0 - 2.0 % | [facility] | | | | | | LABORATORY | | | | | | SERVICES, | | | | | | CORE | | + +---------+ + + + | IG% | 0.3 | 0.0 - 1.0 % | [facility] | | | | | | LABORATORY | | | | | | SERVICES, | | | | | | CORE | | + +---------+ + + + | NEUTROPHIL | 4.77 | 1.80 - 7.70 | [facility] | | | # | | K/cu mm | LABORATORY | | | | | | SERVICES, | | | | | | CORE | | + +---------+ + + + | LYMPHOCYTE | 1.35 | 1.00 - 4.80 | [facility] | | | # | | K/cu mm | LABORATORY | | | | | | SERVICES, | | | | | | CORE | | + +---------+ + + + | MONOCYTE # | 0.49 | 0.10 - 0.90 | [facility] | | | | | K/cu mm | LABORATORY | | | | | | SERVICES, | | | | | | CORE | | + +---------+ + + + | EOS # | 0.21 | 0.00 - 0.50 | [facility] | | | | | K/cu mm | LABORATORY | | | | | | SERVICES, | | | | | | CORE | | + +---------+ + + + | BASO # | 0.04 | 0.00 - 0.10 | [facility] | | | | | K/cu mm | LABORATORY | | | | | | SERVICES, | | | | | | CORE | | + +---------+ + + + | IG# | 0.02 | 0.00 - 0.10 | [facility] | [...] | + + + + + | [facility] | [address] | [place] [address] | | | SERVICES, CORE | [address] | | | + + + + + NT-PRO BNP (11/14/2018 8:55 PM PDT) + +-------+ + + + | Component | Value | Ref Range | Performed | Pathologist | | | | | At | Signature | + +-------+ + + + | NT-PRO BNP | 64 | <125 pg/mL | [facility] | | [...] [facility] | [address] | [place] [address] | | | SERVICES, CORE | [address] | | | + + + + + COMPLETE METABOLIC SET (NA,K,CL,CO2,BUN,CREAT,GLUC,CA,AST,ALT,BILI TOTAL,ALK PHOS,ALB,PROT TOTAL) (11/14/2018 8:55 PM PDT) + + + + + + | Component | Value | Ref Range | Performed | Pathologist | | | | | At | Signature | + + + + + + | GLUCOSE, | 97 [...] + + + + | CREATININE | 1.24 (H) | 0.60 - 1.10 | [facility] | | | PLASMA | | mg/dL | LABORATORY | | | (LAB) | | | SERVICES, | | | | | | CORE | | + + + + + + | EGFR | 55 (L) | >60 mL/min | [facility] | | | - | | | LABORATORY | | | VINCENTIAN | | | SERVICES, | | | | | | CORE | | + + + + + + | EGFR NON | 45 (L) | >60 mL/min | [facility] | [...] + + + + | POTASSIUM, | 4.0 | 3.4 - 5.0 | [facility] | | | PLASMA | | mmol/L | LABORATORY | | | (LAB) | | | SERVICES, | | | | | | CORE | | + + + + + + | CHLORIDE, | 102 | 97 - 108 mmol/L | [facility] | | | PLASMA | | | LABORATORY | | | (LAB) | | | SERVICES, | | | | | | CORE | | + + + + + + | TOTAL CO2, | 27 | 21 - 32 mmol/L | [facility] | | | PLASMA | | | LABORATORY | | | (LAB) | | | SERVICES, | | | | | | CORE | | + + + + + + | CALCIUM, | 9.3 | 8.6 - 10.2 | [facility] | | | PLASMA | | mg/dL | LABORATORY | | | (LAB) | | | SERVICES, | | | | | | CORE | | + + + + + + | CALCIUM(ALB | 9.4 | 8.6 - 10.2 | [facility] | | | CORRECTED) | | mg/dL | LABORATORY | | | | | | SERVICES, | | | | | | CORE | | + + + + + + | BILIRUBIN | 0.5 | 0.3 - 1.2 mg/dL | [facility] | | | TOTAL | | | LABORATORY | | | | | | SERVICES, | | | | | | CORE | | + + + + + + | TOTAL | 8.2 | 6.4 - 8.2 g/dL | [facility] | | | PROTEIN, | | | LABORATORY | | | PLASMA | | | SERVICES, | | | (LAB) | | | CORE | | + + + + + + | ALBUMIN, | 3.9 | 3.5 - 4.7 g/dL | [facility] | | | PLASMA | | | LABORATORY | | | (LAB) | | | SERVICES, | | | | | | CORE | | + + + + + + | ALK PHOS | 108 (H) | 42 - 98 U/L | [facility] | | | | | | LABORATORY | | | | | | SERVICES, | | | | | | CORE | | + + + + + + | AST(SGOT) | 37 | <=41 U/L | [facility] | | | | | | LABORATORY | | | | | | SERVICES, | | | | | | CORE | | + + + + + + | ALT (SGPT) | 41 | <=60 U/L | [facility] | | [...] + + + + | ANION | 8 [...] MDRD equation recommended by the National | [facility] | | Kidney Disease Education Program. Estimated [...] [facility] | [address] | [place] [address] | | | SERVICES, CORE | [address] | | | + + + + + MAGNESIUM, PLASMA (11/14/2018 8:55 PM PDT) + +-------+ + + + | Component | Value | Ref Range | Performed | Pathologist | | | | | At | Signature | + +-------+ + + + | MAGNESIUM,P | 2.6 | 1.6 - 2.6 mg/dL | [facility] [...] | + + + + + | [facility] | [address] | [place] [address] | | | SERVICES, CORE | [address] | | | + + + + + 12 LEAD ECG (11/14/2018 8:03 PM PDT) + + + + + + | Component | Value | Ref Range | Performed | Pathologist | | | | | At | Signature | + + + + + + | VENTRICULAR | 84 | bpm | [facility] | | | RATE | | | OF | | | | | | CARDIOLOGY | | + + + + + + | ATRIAL RATE | 84 | ms | [facility] | | | | | | OF | | | | | | CARDIOLOGY | | + + + + + + | P-R | 161 | ms | [facility] | | | INTERVAL | | | OF | | | | | | CARDIOLOGY | | + + + + + + | P AXIS | 32 | deg | [facility] | | | | | | OF | | | | | | CARDIOLOGY | | + + + + + + | QRS | 85 | ms | [facility] | | | DURATION | | | OF | | | | | | CARDIOLOGY | | + + + + + + | QT | 380 | ms | [facility] | | | | | | OF | | | | | | CARDIOLOGY | | + + + + + + | DAILY-JAYDON | 450 | ms | [facility] | | | | | | OF | | | | | | CARDIOLOGY | | + + + + + + | R AXIS | -10 | deg | [facility] | | | | | | OF | | | | | | CARDIOLOGY | | + + + + + + | T AXIS | 32 | deg | [facility] | | [...] [facility] | | | IMPRESSION | deviation- OTHERWISE | | OF | | | | NORMAL ECG - | | CARDIOLOGY | | + + + + + + | ECG | Electronically signed | | [facility] | | | IMPRESSION | by: RHIANNON FRANCOIS | | OF | | | | 11-14-2018 21:25:32 | | CARDIOLOGY | | + + [...] + + + + + | [facility] | [address] | [place], [place] | | | CARDIOLOGY | [address] | [address] | | + + + + + OUTSIDE CARDIOLOGY (11/14/2018 12:00 AM PDT) + + + | Narrative | Performed At | + + + | | | + + + OUTSIDE CARDIOLOGY (11/14/2018 12:00 AM PDT) + + + | Narrative | Performed At | + + + | | | + + + documented in this encounter Visit Diagnoses + + | Diagnosis | + + | Acute systolic congestive heart failure (HCC) - Primary Acute systolic heart failure | + + | Heart failure with acute decompensation, type unknown Congestive heart failure, | | unspecified | + + | Ulcerative colitis (HCC) Ulcerative colitis, unspecified | + + | 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) Congestive heart failure, | | unspecified | + + | Chest pain of uncertain etiology | + + | Reactive airway disease Unspecified asthma | + + documented in this encounter Administered Medications + +--------+ + +------+------+ | Medication Order | MAR | Action | Dose | Rate | Site | | | Action | Date | | | | + +--------+ + +------+------+ | acetaminophen (TYLENOL) tablet | Given | 11/17/19 | 1,000 mg | | | | 1,000 mg 1,000 mg, oral, EVERY 6 | | 19 4:40 | | | | | HOURS NEEDED, Starting Tue | | AM PDT | | | | | 11/15/18 at 1404, Until Wed | | | | | | | 11/16/18 at 0606, mild pain, first | | | | | | | line | | | | | | + +--------+ + +------+------+ +-------+ + +---+---+ | Given | 11/16/19 | 1,000 mg | | | | | 19 2:12 | | | | | | PM PDT | | | | +-------+ + +---+---+ + +---+ | | | + +---+ | acetaminophen (TYLENOL) tablet | | | 650 mg 650 mg, oral, EVERY 6 | | | HOURS NEEDED, Starting Wed | | | 11/16/18 at 0606, Until Sat | | | 11/19/18 at 0808, mild pain, | | | first line | | + +---+ | | | + +---+ + +-------+ +-------+---+---+ | Ambrisentan (LETAIRIS) tablet | Given | 11/19/19 | 10 mg | | | | tab 10 mg 10 mg, oral, DAILY, | | 19 8:36 | | | | | First dose on Wed11/15/18 at | | AM PDT | | | | | 0900, Until Discontinued | | | | | | + +-------+ +-------+---+---+ +-------+ +-------+---+---+ | Given | 11/18/19 | 10 mg | | | | | 19 8:52 | | | | | | AM PDT | | | | +-------+ +-------+---+---+ | Given | 11/17/19 | 10 mg | | | | | 19 12:05 | | | | | | PM PDT | | | | +-------+ +-------+---+---+ + +---+ | | | + +---+ | bisacodyl (DULCOLAX) | | | suppository 10 mg 10 mg, rectal, | | | DAILY NEEDED, Starting Mon | | | 11/14/18 at 1947, Until Sat | | | 11/19/18 at 0808, 2nd line for no | | | BM in past 2 days or if no | | | response to MIRALAX or if patient | | | unable to tolerate oral | | + +---+ | | | + +---+ + +-------+ +--------+---+---+ | chlorothiazide (DIURIL) | Given | 11/15/19 | 250 mg | | | | injection 250 mg 250 mg, | | 19 9:17 | | | | | intravenous, ONCE, 1 dose, Mon | | PM PDT | | | | | 11/14/18 at 2130 | | | | | | + +-------+ +--------+---+---+ +---+---+ | | | +---+---+ + +-------+ +-------+---+---+ | cyclobenzaprine (FLEXERIL) | Given | 11/17/19 | 10 mg | | | | tablet 10 mg 10 mg, oral, ONCE, | | 19 12:29 | | | | | 1 dose, 11/16/18 at 0030 | | AM PDT | | | | + +-------+ +-------+---+---+ +---+---+ | | | +---+---+ + +-------+ +-------+---+---------+ | enoxaparin (LOVENOX) injection | Given | 11/19/19 | 40 mg | | Abdomen | | 40 mg 40 mg, subcutaneous, EVERY | | 19 9:56 | | | | | EVENING, First dose on Wed | | PM PDT | | | | | 11/15/18 at 2100, Until | | | | | | | Discontinued | | | | | | + +-------+ +-------+---+---------+ +-------+ +-------+---+---------+ | Given | 11/18/19 | 40 mg | | Abdomen | | | 19 9:49 | | | | | | PM PDT | | | | +-------+ +-------+---+---------+ | Given | 11/17/19 | 40 mg | | Abdomen | | | 19 9:04 | | | | | | PM PDT | | | | +-------+ +-------+---+---------+ +---+---+ | | | +---+---+ + +---------+ +--------+-------+---+ | furosemide (LASIX) IV 120 mg | New Bag | 11/16/19 | 120 mg | 186 | | | 120 mg, intravenous, ONCE, 1 | | 19 6:18 | | mL/hr | | | doseLady 11/15/18 at 0700 | | AM PDT | | | | + +---------+ +--------+-------+---+ +---+---+ | | | +---+---+ + +---------+ +--------+-------+---+ | furosemide (LASIX) IV 120 mg | New Bag | 11/16/19 | 120 mg | 120 | | | 120 mg, intravenous, ONCE, 1 | | 19 2:01 | | mL/hr | | | dose, 11/15/18 at 1330 | | PM PDT | | | | + +---------+ +--------+-------+---+ +---+---+ | | | +---+---+ + +---------+ +--------+-------+---+ | furosemide (LASIX) IV 120 mg | New Bag | 11/16/19 | 120 mg | 120 | | | 120 mg, intravenous, ONCE, | | 19 10:22 | | mL/hr | | | dose, 11/15/18 at 2000 | | PM PDT | | | | + +---------+ +--------+-------+---+ +---+---+ | | | +---+---+ + +---------+ +--------+-------+---+ | furosemide (LASIX) IV 120 mg | New Bag | 11/17/19 | 120 mg | 120 | | | 120 mg, intravenous, ONCE, 1 | | 19 4:42 | | mL/hr | | | dose, Wed11/16/18 at 0500 | | AM PDT | | | | + +---------+ +--------+-------+---+ +---+---+ | | | +---+---+ + +---------+ +--------+-------+---+ | furosemide (LASIX) IV 120 mg | New | 11/18/19 | 120 mg | 100 | | | 120 mg, intravenous, THREE TIMES | | 19 6:42 | | mL/hr | | | DAILY, First dose on Wed11/16/18 | | AM PDT | | | | | at 1200, Until Discontinued | | | | | | + +---------+ +--------+-------+---+ +---------+ +--------+-------+---+ | New Bag | 11/17/19 | 120 mg | 100 | | | | 19 9:03 | | mL/hr | | | | PM PDT | | | | +---------+ +--------+-------+---+ | New Bag | 11/17/19 | 120 mg | 100 | | | | 19 12:06 | | mL/hr | | | | PM PDT | | | | +---------+ +--------+-------+---+ +---+---+ | | | +---+---+ + +---------+ +--------+-------+---+ | furosemide (LASIX) IV 200 mg | New Bag | 11/15/19 | 200 mg | 210 | | | 200 mg, intravenous, ONCE, 1 | | 19 9:54 | | mL/hr | | | dose, 11/14/18 at 2130 | | PM PDT | | | | + +---------+ +--------+-------+---+ +---+---+ | | | +---+---+ + +-------+ + +---+---+ | HYDROcodone-acetaminophen | Given | 11/19/19 | 1 tablet | | | | (NORCO) 5-325 mg tablet 1 tablet | | 19 11:52 | | | | | 1 tablet, oral, EVERY 6 HOURS | | PM PDT | | | | | NEEDED, Starting 11/16/18 at | | | | | | | 0605, Until 11/19/18 at 0808, | | | | | | | moderate pain | | | | | | + +-------+ + +---+---+ +-------+ + +---+---+ | Given | 11/19/19 | 1 tablet | | | | | 19 8:36 | | | | | | AM PDT | | | | +-------+ + +---+---+ | Given | 11/18/19 | 1 tablet | | | | | 19 9:49 | | | | | | PM PDT | | | | +-------+ + +---+---+ +---+---+ | | | +---+---+ + +-------+ +--------+---+---+ | metOLazone (ZAROXOLYN) tablet | Given | 11/16/19 | 2.5 mg | | | | 2.5 mg 2.5 mg, oral, ONCE, 1 | | 19 1:00 | | | | | dose, 11/15/18 at 1230 | | PM PDT | | | | + +-------+ +--------+---+---+ +---+---+ | | | +---+---+ + +-------+ +------+---+---+ | ondansetron ODT (ZOFRAN ODT) | Given | 11/19/19 | 8 mg | | | | tablet 8 mg 8 mg, oral, EVERY 12 | | 19 12:47 | | | | | HOURS NEEDED, Starting Fri | | PM PDT | | | | | 11/18/18 at 1236, Until Sat | | | | | | | 11/19/18 at 0808, | | | | | | | nausea/vomiting, first line | | | | | | + +-------+ +------+---+---+ + +---+ | | | + +---+ | polyethylene glycol (MIRALAX) | | | packet 17 g 17 g, oral, THREE | | | TIMES DAILY NEEDED, Starting | | | 11/15/18 at 0700, Until Sat | | | 11/19/18 at 0808, 1st line - for | | | no BM for 2 days | | + +---+ | | | + +---+ + +-------+ +--------+---+---+ | potassium chloride (KLOR-CON) | Given | 11/17/19 | 40 mEq | | | | packet 40 mEq 40 mEq, oral, | | 19 9:05 | | | | | ONCE, 1 dose, 11/16/18 at 0715 | | AM PDT | | | | + +-------+ +--------+---+---+ +---+---+ | | | +---+---+ + +-------+ +--------+---+---+ | potassium chloride SR (K-DUR) | Given | 11/15/19 | 40 mEq | | | | tablet 40 mEq 40 mEq, oral, | | 19 10:46 | | | | | ONCE, 1 dose, 11/14/18 at 2230 | | PM PDT | | | | + +-------+ +--------+---+---+ +---+---+ | | | +---+---+ + +-------+ +--------+---+---+ | potassium chloride SR (K-DUR) | Given | 11/16/19 | 40 mEq | | | | tablet 40 mEq 40 mEq, oral, | | 19 7:45 | | | | | ONCE, 1 dose, 11/15/18 at 1945 | | PM PDT | | | | + +-------+ +--------+---+---+ +---+---+ | | | +---+---+ + +-------+ +--------+---+---+ | potassium chloride SR (K-DUR) | Given | 11/16/19 | 40 mEq | | | | tablet 40 mEq 40 mEq, oral, | | 19 9:45 | | | | | ONCE, 1 dose, 11/15/18 at 2200 | | PM PDT | | | | + +-------+ +--------+---+---+ +---+---+ | | | +---+---+ + +-------+ +--------+---+---+ | potassium chloride SR (K-DUR) | Given | 11/17/19 | 40 mEq | | | | tablet 40 mEq 40 mEq, oral, | | 19 2:32 | | | | | ONCE, 1 dose, 11/16/18 at 0200 | | AM PDT | | | | + +-------+ +--------+---+---+ +---+---+ | | | +---+---+ + +-------+ +--------+---+---+ | potassium chloride SR (K-DUR) | Given | 11/18/19 | 40 mEq | | | | tablet 40 mEq 40 mEq, oral, | | 19 4:21 | | | | | TWICE DAILY, 2 doses, First dose | | PM PDT | | | | | on Inga 11/17/18 at 1230, Last | | | | | | | dose on Inga 11/17/18 at 1700 | | | | | | + +-------+ +--------+---+---+ +-------+ +--------+---+---+ | Given | 11/18/19 | 40 mEq | | | | | 19 11:55 | | | | | | AM PDT | | | | +-------+ +--------+---+---+ +---+---+ | | | +---+---+ + +-------+ +--------+---+---+ | potassium chloride SR (K-DUR) | Given | 11/16/19 | 60 mEq | | | | tablet 60 mEq 60 mEq, oral, | | 19 2:33 | | | | | ONCE, 1 dose, 11/15/18 at 0300 | | AM PDT | | | | + +-------+ +--------+---+---+ +---+---+ | | | +---+---+ + +-------+ +--------+---+---+ | potassium chloride SR (K-DUR) | Given | 11/17/19 | 60 mEq | | | | tablet 60 mEq 60 mEq, oral, | | 19 11:07 | | | | | ONCE, 1 dose, 11/16/18 at 1130 | | AM PDT | | | | + +-------+ +--------+---+---+ +---+---+ | | | +---+---+ + +-------+ +--------+---+---+ | potassium chloride SR (K-DUR) | Given | 11/17/19 | 60 mEq | | | | tablet 60 mEq 60 mEq, oral, | | 19 9:03 | | | | | TWICE DAILY, 2 doses, First dose | | PM PDT | | | | | on Wed11/16/18 at 1630, Last dose | | | | | | | on Wed11/16/18 at 1830 | | | | | | + +-------+ +--------+---+---+ +-------+ +--------+---+---+ | Given | 11/17/19 | 60 mEq | | | | | 19 5:06 | | | | | | PM PDT | | | | +-------+ +--------+---+---+ +---+---+ | | | +---+---+ + +-------+ +-------+---+---+ | prochlorperazine (COMPAZINE) | Given | 11/19/19 | 10 mg | | | | injection 5-10 mg 5-10 mg, | | 19 2:58 | | | | | intravenous, EVERY 6 HOURS | | PM PDT | | | | | NEEDED, Starting 11/18/18 at | | | | | | | 1236, Until 11/19/18 at 0808, | | | | | | | nausea/vomiting not responding | | | | | | | to ondansetron and unable to take | | | | | | | oral prochlorperazine | | | | | | + +-------+ +-------+---+---+ + +---+ | | | + +---+ | prochlorperazine (COMPAZINE) | | | tablet 5-10 mg 5-10 mg, oral, | | | EVERY 6 HOURS NEEDED, Starting | | | 11/18/18 at 1236, Until Sat | | | 11/19/18 at 0808, | | | nausea/vomiting, second line | | + +---+ | | | + +---+ + +-------+ + +---+---+ | senna-docusate (SENOKOT S) | Given | 11/15/19 | 1 tablet | | | | 8.6-50 mg 1 tablet 1 tablet, | | 19 9:17 | | | | | oral, TWICE DAILY, First dose on | | PM PDT | | | | | Wed11/14/18 at 2145, Until | | | | | | | Discontinued | | | | | | + +-------+ + +---+---+ +---+---+ | | | +---+---+ + +-------+ +-------+---+---+ | sildenafil (REVATIO) tablet 20 | Given | 11/19/19 | 20 mg | | | | mg 20 mg, oral, THREE TIMES | | 19 9:56 | | | | | DAILY, First dose on Wed11/14/18 | | PM PDT | | | | | at 2300, Until Discontinued | | | | | | + +-------+ +-------+---+---+ +-------+ +-------+---+---+ | Given | 11/19/19 | 20 mg | | | | | 19 5:05 | | | | | | PM PDT | | | | +-------+ +-------+---+---+ | Given | 11/19/19 | 20 mg | | | | | 19 8:37 | | | | | | AM PDT | | | | +-------+ +-------+---+---+ +---+---+ | | | +---+---+ + +-------+ +------+---+---+ | sulfur hexafluoride | Given | 11/16/19 | 5 mL | | | | microspheres (LUMASON) IV 1-2 mL | | 19 9:38 | | | | | 1-2 mL, intravenous, ONCE, 1 | | AM PDT | | | | | dose, Lady 11/15/18 at 1015 | | | | | | + +-------+ +------+---+---+ +---+---+ | | | +---+---+ + +-------+ +-------+---+---+ | torsemide (DEMADEX) tablet 40 | Given | 11/19/19 | 40 mg | | | | mg 40 mg, oral, TWICE DAILY | | 19 5:05 | | | | | (DIURETIC), First dose (after | | PM PDT | | | | | last modification) on Wed | | | | | | | 11/18/18 at 1600, Until | | | | | | | Discontinued | | | | | | + +-------+ +-------+---+---+ +---+---+ | | | +---+---+ + +-------+ +-------+---+---+ | torsemide (DEMADEX) tablet 80 | Given | 11/19/19 | 80 mg | | | | mg 80 mg, oral, TWICE DAILY | | 19 8:36 | | | | | (DIURETIC), First dose (after | | AM PDT | | | | | last modification) on Wed | | | | | | | 11/17/18 at 1600, Until | | | | | | | Discontinued | | | | | | + +-------+ +-------+---+---+ +-------+ +-------+---+---+ | Given | 11/18/19 | 80 mg | | | | | 19 4:21 | | | | | | PM PDT | | | | +-------+ +-------+---+---+ +---+---+ | | | +---+---+ documented in this encounter
--- OUTSIDE RECORDS SUMMARY | ~2019-10-23 | XMS | Encounter Summary ---
Demographics + + + | Address | [address] | | | [place] [address] | + + + | Home Phone [...] + + + | Author | [facility] | + + + | Organization | [facility] | + + + | [...] Team Providers + +------+ + | Care Problem Manager Name | Role | Phone | + +------+ + | Bobbi Jenkins NP | PCP | | + +------+ + Encounter Details +--------+ + + + + | Date | Type | Department | Care Team | Description | +--------+ + + + + | 03/12/ | Document-Sc | Health Information | Unknown . | | | 2018 | anned | [id number] | | | | | | [address] | | | | | | Mailcode: OP17A | | | | | | [facility] | | | | | | [place], [place] | | | | | | [address] | | | | | | [phone] | | | +--------+ + + + [...]
--- OUTSIDE RECORDS SUMMARY | ~2019-10-23 | XMS | Encounter Summary ---
Demographics + + + | Address | [address] | | | [place] [address] | + + + | Home Phone | | + + + | Preferred Language | Unknown | + + + | Marital Status | Single | + + + | Faith Affiliation | CHR | + + + [...] Team Providers + +------+ + | Care Block Tester Name | Role | Phone | + +------+ + | Bobbi Jenkins NP | PCP | | + +------+ + Reason for Visit + +--------+ + | Reason | Onset | Comments | | | Date | | + +--------+ + | Refill Request | 06/21/ | | | | 2020 | | + +--------+ + | Refill Request | 06/25/ | | | | 2020 | | + +--------+ + Encounter Details +--------+ + + + + | Date | Type | Department | Care Team | Description | +--------+ + + + + | 06/21/ | Telephone | Pulmonary & | Beth Keith, | Refill Request; | | 2020 | | Critical Care | [address] | Refill Request | | | | Medicine at | [facility] | | | | | [facility] | [place], [place] | | | | | [address] | [address] | | | | | [address] [facility] | [phone] | | | | | Pavilion, [address] [place] [address] | | | | | | [place], [place] | | | | | | [address] | | | | | | [phone] | | | +--------+ + + + [...] Telephone Encounter - Yareli Bonilla MA - 06/26/2019 2:02 PM PDTCalled back to confirm o rder, no further action needed. elephone Encounter - Holly Early - 06/26/2019 10:49 AM PDTInbound call [facility] from [facility]. Call back number: [phone]. Calling to verify Rx renewal for Ambrisentan (LETAIRIS) 10 mg oral tablet is forwarded to [facility]. elephone Encoun Gianna Moody MA - 06/22/2019 9:34 AM PDTFormatting of this note might be differe nt from the original. Requested Prescriptions Pending Prescriptions Disp Refills Ambrisentan (LETAIRIS) 10 mg oral tablet 30 tablet 11 Sig: Take 1 tablet by mouth once daily. Indications: pulmonary arterial hypertension documented in this e ncounter Plan of Treatment Not on filedocumented as of this encounter Visit Diagnoses + + | Diagnosis | + + | Pulmonary hypertension (HCC) Other chronic pulmonary heart diseases | + + documented in this encounter"
--- OUTSIDE RECORDS SUMMARY | ~2019-10-23 | XMS | Encounter Summary ---
Demographics + + + | Address | [address] | | | [place] [address] | + + + | Home Phone [...] Team Providers + +------+ + | Care Dipper Clock And Watch Hands Name | Role | Phone | + +------+ + | Bobbi Jenkins NP | PCP | | + +------+ + Encounter Details +--------+ + + + + | Date | Type | Department | Care Team | Description | +--------+ + + + + | 04/10/ | Supervisor Agency Appointments | Pulmonary & | Rosangela Hall MD | Pulmonary | | 2019 | | Critical Care | [address] | hypertension (HCC) | | | | Medicine at | [facility], | (Primary Dx) | | | | [facility] | [place] [address] | | | | | [address] | [phone] | | | | | [address] [facility] | | | | | | Pavilion, 3rd Floor | | | | | | [place], [place] | | | | | | [address] | | | | | | [phone] | | | +--------+ + + + [...] Addendum Note - Rosangela Hall MD - 04/11/2019 6:04 PM PST Addended by: ROSANGELA HALL MD on: 06:04 PM Modules accepted: Orders documented in this enco unter Plan of Treatment + + +--------+ + + | Name | Type | Priori | Associated Diagnoses | Order Schedule | | | | ty | | | + + +--------+ + + | SPIROMETRY, PULM | Pulmonary | Routin | Pulmonary | Expected: | | FUNCTION LAB | Function | e | hypertension (HCC) | 04/12/2019, Expires: | | | | | | 05/11/2020 | + + +--------+ + + documented as of this encounter Visit Diagnoses + + | Diagnosis | + + | Pulmonary hypertension (HCC) - Primary Other chronic pulmonary heart diseases | + + documented in this encounter"
--- OUTSIDE RECORDS SUMMARY | ~2019-10-23 | XMS | Encounter Summary ---
Demographics + + + | Address | [address] | | | [place] [address] | + + + | Home Phone [...] Team Providers + +------+ + | Care Replanting Machine Operator Name | Role | Phone | + +------+ + | Bobbi Jenkins NP | PCP | | + +------+ + Reason for Visit + +--------+ + | Reason | Onset | Comments | | | Date | | + +--------+ + | Hospital Follow-up | 11/25/ | | | | 2019 | | + +--------+ + Encounter Details +--------+ + + + + | Date | Type | Department | Care Team | Description | +--------+ + + + + | 11/25/ | Telephone | Pulmonary & | Kate Benjamin, | Hospital Follow-up | | 2019 | | Critical Care | [address] [facility] | | | | | Medicine at | [facility] | | | | | [facility] | [place], [place] | | | | | [address] | [address] | | | | | [address] [facility] | [phone] | | | | | Donna, [address] [place] [address] | | | | | | [place], [place] | | | | | | [address] | | | | | | [phone] | | | +--------+ + + + [...] Telephone Encounter - Kate Benjamin MD - 11/25/2018 9:14 AM PDTCalled her to follow up - apparently she fell asleep and never went to the ED. She woke up this AM and told me she feels great. However, I am concerned that she may have developed a-fib or a-flutter (or another arrhythm ia) so I will arrange for a zio patch for her when she comes to clinic this afternoon, as we ll as get an EKG. docu mented in this encounter Plan of Treatment Not on filedocumented as of this encounter Visit Diagnoses Not on filedocumented in this encounter"
--- OUTSIDE RECORDS SUMMARY | ~2019-10-23 | XMS | Clinical Summary ---
Demographics + + + | Address | [address] | | | [place] [address] | + + + | Home Phone [...] Author + + + | Author | [facility] | + + + | Organization | [facility] | + + + | Address | [...] Team Providers + +------+ + | Care Project Coordinator Rn Name | Role | Phone | + +------+ + | Bobbi Jenkins NP | PCP | | + +------+ + Source Comments BEATRIS is fully live on both EpicCare Ambulatory and EpicCare InPatient.[facility] Allergies + + + + + + | Active Allergy | Reactions | Severity | Noted | Comments | | | | | Date | | + + + + + + | Morphine | Hypotension | Medium | 03/17/19 | | | | | | 18 | | + + + + + + | Nsaids | Unknown | | 10/12/19 | | | (Non-Steroidal | | | 20 | | | Anti-Inflammatory | | | | | | Drug) | | | | | + + + + + + | Spironolactone | Unknown | | 11/23/19 | | | | | | 18 | | + + + + + + Medications + + + +---------+------+------+-------+ | Medication | Sig | Dispensed | Refills | Star | End | Statu | | | | | | t | Date | s | | | | | | Date | | | + + + +---------+------+------+-------+ | albuterol 90 | Inhale 2 puffs by | | 0 | | | Activ | | mcg/actuation | mouth every four | | | | | e | | inhalation HFA | hours as needed | | | | | | | aerosol inhaler | (dyspnea). | | | | | | + + + +---------+------+------+-------+ | | Take 10 mL by mouth | 118 mL | 0 | 02/1 | | Activ | | dextromethorphan-gua | every four hours as | | | 7/20 | | e | | iFENesin 10-100 mg/5 | needed (cough 2nd | | | 18 | | | | mL oral | line). Indications: | | | | | | | syrupIndications: | Cough | | | | | | | cough | | | | | | | + + + +---------+------+------+-------+ | fluticasone 50 | Instill 2 sprays | 16 g | 0 | 02/1 | | Activ | | mcg/actuation nasal | into each nostril | | | /20 | | e | | spray,suspensionIndi | two times daily. | | | 18 | | | | cations: sinusitis | Indications: | | | | | | | | sinusitis | | | | | | + + + +---------+------+------+-------+ +---+ + | | Additional | | | InformationPatient | | | not taking. Reported | | | on 11/25/2018 12:27 | | | PM | +---+ + + + + +----+------+------+-------+ | | Take by mouth. A few | | 0 | | | Activ | | DM/p-ephed/acetamino | times per month | | | | | e | | ph/doxylam (NYQUIL | | | | | | | | ORAL) | | | | | | | + + + +----+------+------+-------+ | medical supply, | Per RT | 1 each | 11 | 10/ | 10/ | Activ | | miscellaneous (RX | | | | 0/20 | 0/20 | e | | HOME OXYGEN) | | | | 19 | 24 | | + + + +----+------+------+-------+ | medical supply, | Adjustable, single | 1 each | 0 | 10/1 | | Activ | | miscellaneous (RX | point cane | | | 20 | | e | | CANE ADJUST/FIXED | | | | 19 | | | | QUAD/3 PRO) | | | | | | | + + + +----+------+------+-------+ | potassium chloride | Take 2 tablets by | 60 | 11 | 10/2 | | Activ | | SR (KLOR-CON M20) | mouth once daily. | tablet | | 4/20 | | e | | 20 mEq oral | | | | 19 | | | | tablet,ER | | | | | | | | particles/crystals | | | | | | | + + + +----+------+------+-------+ | sildenafil 20 mg | Take 2 tablets by | 180 | 11 | 03/11 | | Activ | | oral | mouth three times | tablet | | 320 | | e | | tabletIndications: | daily. Administer at | | | 20 | | | | pulmonary arterial | least 4-6 hours | | | | | | | hypertension | apart. Indications: | | | | | | | | pulmonary arterial | | | | | | | | hypertension | | | | | | + + + +----+------+------+-------+ | medical supply, | INOGEN PORTABLE | 1 each | 2 | 02/ | | Activ | | miscellaneous (RX | CONCENTRATORPlease | | | 3/20 | | e | | HOME OXYGEN) | fax to [facility] | | | 20 | | | | |Please fax to [facility] | | | | | | + + + +----+------+------+-------+ | Ambrisentan | Take 1 tablet by | 30 | 11 | 05/1 | | Activ | | (LETAIRIS) 10 mg | mouth once daily. | tablet | | /20 | | e | | oral | Indications: | | | 20 | | | | tabletIndications: | pulmonary arterial | | | | | | | pulmonary arterial | hypertension | | | | | | | hypertension | | | | | | | + + + +----+------+------+-------+ | esomeprazole 20 mg | Take 1 capsule by | 30 | 6 | 05/2 | | Activ | | oral | mouth once daily. | capsule | | 02/27 | | e | | capsule,delayed | Indications: | | | 20 | | | | release(DR/EC)Indica | gastroesophageal | | | | | | | tions: | reflux disease | | | | | | | gastroesophageal | | | | | | | | reflux disease | | | | | | | + + + +----+------+------+-------+ | torsemide 20 mg | Take 3 tablets by | 270 | 2 | 05/2 | | Activ | | oral | mouth three times | tablet | | 6/20 | | e | | tabletIndications: | daily. Indications: | | | 20 | | | | pulmonary edema due | fluid in the lungs | | | | | | | to chronic heart | due to chronic heart | | | | | | | failure | failure | | | | | | + + + +----+------+------+-------+ | | Take 1 tablet by | | 0 | | | Activ | | HYDROcodone-acetamin | mouth once daily. | | | | | e | | ophen 10-325 mg oral | | | | | | | | tablet | | | | | | | + + + +----+------+------+-------+ Active Problems + + + | Problem | Noted Date | + + + | CKD (chronic kidney disease), stage III | 10/17/2017 | + + + | Low serum vitamin D | 04/08/2017 | + + + | Pulmonary hypertension | 03/26/2017 | + + + | Right heart failure due to pulmonary hypertension | 03/23/2017 | + + + + + | Last Assessment & Plan: Secondary to group I PAH. Clinical | | history suggests worsening decompensation and she may be nearing | | indication for a third agent. Given that she is warm, mentating | | well and with stable VS, will proceed with more aggressive | | diuresis and defer placing PA catheter pending response. Prior | | RHC was not completed in her Mar 2017 admission (only RV | | pressures recorded), so may be worthwhile to place a PA catheter | | or get RHC this admission. Initially given 200mg lasix with 1g | | diuril. NT-proBNP WNL.- CTM urine output- f/u TTE results- | | consult cardiology for right heart cath when euvolemic, for | | workup for potential third agent for Pulmonary HTN- Maintain | | guidry- Replace K and Mg as needed- Cont sildenafil 20mg tid- Cont | | ambresentan, or formulary equivalent- Cont discussion about more | | advanced PH therapies pending response | + + + + + | Acute systolic congestive heart failure | 03/17/2017 | + + + | Ulcerative colitis | 03/17/2017 | + + + + + | Overview: Overview: IMO Problem List Replacement - | | 2017_Regulatory_1 Last Assessment & Plan: Not on active | | therapy, not currently with significant symptoms. She reports | | that prn mustard is sufficient to control her flares.-OK for | | mustard as needed | + + + + + | Chronic cough | 03/17/2017 | + + + | Reactive airway disease | 03/17/2017 | + + + + + | Last Assessment & Plan: -Cont home albuterol prn | + + + + + | ALONDRA (acute kidney injury) | 03/17/2017 | + + + | Von Willebrand disease | 03/17/2017 | + + + | History of inhalational methamphetamine abuse | 03/17/2017 | + + + | Osteoarthritis | 03/17/2017 | + + + | Cor pulmonale | 03/17/2017 | + + + | Compression fracture of thoracic vertebra with routine healing | 12/12/2015 | + + + + + | Overview: Overview: September 2015, admitted to [facility] for pain | | controlled, then referred to Dr. Calhoun, neurosurgeon at | | [facility] [facility] & Plan: Will refer back to neuro surgery | | for evaluation. | |Will refer back to neuro surgery for evaluation. | + + + + + | Essential hypertension | 04/10/2010 | + + + + + | Overview: Overview: | | Dx Name changed by system update on 11/20/2016 | + + + + + | Depressive disorder, not elsewhere classified | 02/28/2010 | + + + | Anxiety state | 02/07/2008 | + + + + + | Overview: Overview: | | IMO Problem List Replacement - 2017_Regulatory_1 | + + Resolved Problems + + + + | Problem | Noted | Resolved | | | Date | Date | + + + + | Heart failure with acute decompensation, type unknown | 11/15/19 | | | | 19 | 9 | + + + + | Chest pain of uncertain etiology | 04/09/19 | | | | 18 | 9 | + + + + + + | Last Assessment & Plan: Likely secondary to RV strain. | | Troponins negative at OSH and EKG without ischemic changes here. | | CXR unremarkable.-Cont to monitor | + + + + + + | Acute renal failure | 03/14/19 | | | | 18 | 8 | + + + + Encounters +--------+ + + + + | Date | Type | Specialty | Care Team | Description | +--------+ + + + + | 10/11/ Office | Pulmonary Disease | Beth Keith, | Pulmonary | | 2020 | Visit | | MD | hypertension (HCC) | | | | | | (Primary Dx); | | | | | | Chronic right-sided | | | | | | heart failure (HCC); | | | | | | Right heart failure | | | | | | due to pulmonary | | | | | | hypertension (HCC) | +--------+ + + + + | 10/11/ | Hospital | Pulmonary Disease | [facility] | | | 2019 | Encounter | | Clinic | | +--------+ + + + + | 10/11/ | Travel | | | | | 2019 | | | | | +--------+ + + + + | 09/21/ | MyChart | Pulmonary Disease | Beth Keith, | RE: Test results | | 2020 | Encounter | | MD | | +--------+ + + + + | 09/19/ | Telephone | Pulmonary Disease | Beth Keith, | Scheduling; Lab | | 2019 | | | MD | Order (Echo/EKG - | | | | | | Send External) | +--------+ + + + + | 09/14/ | Telephone | Pulmonary Disease | Beth Keith, | | | 2019 | | | MD | | +--------+ + + + + | 09/14/ | Documentati | Pulmonary Disease | Beth Keith, | Pre-op evaluation | | 2019 | on | | MD | | +--------+ + + + + | 09/14/ | Telephone | Pulmonary Disease | Beth Keith, | Update from Patient | | 2019 | | | MD | | +--------+ + + + + | 08/24/ | MyChart | Pulmonary Disease | Beth Keith, | lab results | | 2019 | Encounter | | MD | | +--------+ + + + + | 08/23/ | Documentati | Pulmonary Disease | Beth Keith, | | | 2019 | on | | MD | | +--------+ + + + + | 08/23/ | Telephone | Pulmonary Disease | Beth Keith, | Lab Results; Not | | 2019 | | | MD | feeling well; Lab | | | | | | Results | +--------+ + + + + | 08/20/ | Telephone | Pulmonary Disease | Beth Keith, | Lab Order (Fax | | 2019 | | | MD | request); Lab Order | +--------+ + + + + | 08/13/ | Telephone | Pulmonary Disease | Beth Keith, | | | 2020 | | | MD | | +--------+ + + + + from Last 3 Months Immunizations + + + + | Name | Administration Dates | Next Due | + + + + | Influenza virus | 02/13/2002 | | | vaccine, whole virus | | | + + + + | Influenza, | 04/05/2017 | | | injectable, | | | | quadrivalent, | | | | preservative free | | | | (IIV4) | | | + + + + | Pneumococcal 23 | 02/13/2002 | | + + + + | Ppd (tuberculin | 10/02/2003 | | | Purified Protein | | | | Derivative) | | | + + + + Family History + + +------+ + | Medical History | Relation | Name | Comments | + + +------+ + | Heart Attack | Maternal | | | | | Grandmoth | | | | | er | | | + + +------+ + | Coronary Artery | Mother | | | | Disease | | | | + + +------+ + | Dementia | Mother | | | + + +------+ + | Multiple Sclerosis | Mother | | | + + +------+ + | Heart Disease | Paternal | | | | | Grandmoth | | | | | er | | | + + +------+ + + +------+ + + | Relation | Name | Status | Comments | + +------+ + + | Father | | | | + +------+ + + | Maternal Grandmother | | | | + +------+ + + | Mother | | | | + +------+ + + | Paternal Grandmother | | | | + +------+ + + Social History + +-------+ +--------+------+ [...] | | | + + + + Last Filed Vital Signs + + + [...] + + + | Respiratory Rate | 14 | 03/23/2019 4:27 PM | | | | | PST [...] | | + + + + + Plan of Treatment + + + + + | Health Maintenance | Due Date | Last | Comments | | | | Done | | + + + + + | Pneumococcal | | 02/13/19 | | | vaccination (2 of 3 | 4 | 03 | | | - PCV13) | | | | + + + + + | Influenza (Flu) | | 12/24/19 | | | vaccination (#1) | 0 | 19, | | | | | 04/23/19 | | | | | 19, | | | | | 04/05/19 | | | | | 18, | | | | | Addition | | | | | al | | | | | history | | | | | exists | | + + + + + Results Not on filefrom Last 3 Months Insurance + +--------+ +--------+-------+---------+--------+ | Payer | Benefi | Subscriber | Effect | Phone | Address | Type | | | t Plan | ID | lalito | | | | | | / | | Dates | | | | | | Group | | | | | | + +--------+ +--------+-------+---------+--------+ | EMPLOYEE COMMUNICATIONS INTERN MEDICAID | EMPLOYEE COMMUNICATIONS INTERN | [id number] | | | | Medica | | | [place] | | [id number] | | | id | | | [place] | | esent | | | | + +--------+ +--------+-------+---------+--------+ + +--------+ +--------+ + + | Guarantor Name | Accoun | Relation to | Date | Phone | Billing Address | | | t Type | Patient | of | | | | | | | | | | + +--------+ +--------+ + + | Gema Barron | Person | Self [birth year] | [address] | | | tyler/Ignacio | | 1965 | [phone] | [place] [address] | | | eileen | | | [address] (Home) | | + +--------+ +--------+ + + Advance Directives + + + + + | Code Status | Date | Date | Comments | | | Activated | Inactivated | | + + + + + | Full Code | 11/14/2018 | 11/19/2018 | | | | 7:54 PM | 8:13 AM | | + + + + + + + + +---+ | | | | | + + + +---+ | Full Code | 03/17/2017 | 03/27/2017 | | | | 12:50 AM | 11:25 PM | | + + + +---+
--- OUTSIDE RECORDS SUMMARY | ~2019-10-23 | XMS | Encounter Summary ---
Demographics + + + | Address | [address] | | | [place] [address] | + + + | Home Phone | | + + + | Preferred Language | Unknown | + + + | Marital Status | Single | + + + | Mu-Ism Affiliation | CHR | + + + | Race | White | + + + | Ethnic Group | Not or | + + + Author + + + | Author | [facility] | + + + | Organization | [facility] | + + + | Address | [...] Team Providers + +------+ + | Care Produce Sorter Name | Role | Phone | + +------+ + | Bobbi Jenkins COIL FINISHER | PCP | | + +------+ + Reason for Visit + +--------+ + | Reason | Onset | Comments | | | Date | | + +--------+ + | Pre-op evaluation | 09/14/ | | | | 2020 | | + +--------+ + Encounter Details +--------+ + + + + | Date | Type | Department | Care Team | Description | +--------+ + + + + | 09/14/ | Documentati | [facility] | Beth Keith, | Pre-op evaluation | | 2020 | on | Pul[facility]ology [facility] | [address] [facility] | | | | | [address] | [address] | | | | | [address] | [place], [place] | | | | | [place], [place] | [address] | | | | | [address] | [phone] | | | | | [phone] | | | +--------+ + + + [...] Encounter - Beth Keith MD - 09/15/2019 12:01 PM PDTMs. Barron is a 54 yo f emale with WHO Group 1 PAH with WHO Functional class III symptoms. Overall stable on sildena carter 40mg TID and ambrisentan 10mg daily. Her most recent echocardiogram showed improvement i n her right sided pressures. Because of her pulmonary arterial hypertension she is a high ri sk patient for an intermediate risk procedure. Recommendations: - Continuous cardiac and blood pressure monitoring (can consider placement of an arterial l ine) - Consider intra-operative nitric oxide or Iloprost - Continue all pulmonary hypertension medications Please call our office with any additional questions. Beth Keith MD [facility] [address] [place] [address] documented in this en counter Plan of Treatment Not on filedocumented as of this encounter Visit Diagnoses Not on filedocumented in this encounter"
--- OUTSIDE RECORDS SUMMARY | ~2019-10-23 | XMS | Encounter Summary ---
Demographics + + + | Address | [address] | | | [place] [address] | + + + | Home Phone [...] Author + + + | Author | [facility] | + + + | Organization | [facility] | + + + | Address [...] Team Providers + +------+ + | Care Underwriting Analyst Name | Role | Phone | [...] | | | [facility] | [place] [address] | | | | | [address] | [phone] | | | | | [address] [facility] | | | | | | [place], [facility] Floor | | | | | | [place], [place] | | | | | | [address] | | | | | | [phone] | | | +--------+--------+ + + + [...] Encounter - Sydni Saldana MA - 12/16/2017 10:07 AM PSTFormatting of this note horacio ht be different from the original. REFILL REQUEST DATE: December 16, 2017 PATIENT: Gema Barron [id number] MESSAGE: On current med list Requested Prescriptions Pending Prescriptions Disp Refills SILDENAFIL 20 mg oral tablet [Pharmacy Med Name: SILDENAFIL 20MG TAB] 270 tablet 3 Sig: TAKE 1 TABLET BY MOUTH THREE TIMES DAILY LAST APPOINTMENT: 10/12/17 at 3:43 pm NEXT APPOINTMENT: No future appointments scheduled in Pulmonary Disease. Patient's pharmacy has been verified: Yes [facility] [address] [place] [id number] documented in this encou nter Plan of Treatment Not on filedocumented as of this encounter Visit Diagnoses Not on filedocumented in this encounter"
--- OUTSIDE RECORDS SUMMARY | ~2019-10-23 | XMS | Encounter Summary ---
Demographics + + + | Address | [address] | | | [place] [address] | + + + | Home Phone [...] Team Providers + +------+ + | Care Informal Waiter/Waitress Name | Role | Phone | + +------+ + | Bobbi Jenkins NP | PCP | | + +------+ + Encounter Details +--------+ + + + + | Date | Type | Department | Care Team | Description | +--------+ + + + + | 03/25/ | Pharmacy | Outpatient [facility] | | | | 2017 | Visit | [facility] | | | | | | [address] | | | | | | [place], [place] | | | | | | [address] | | | | | | [phone] | | | +--------+ + + + [...]
--- OUTSIDE RECORDS SUMMARY | ~2019-10-23 | XMS | Encounter Summary ---
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 04/08/2017 FERRITIN 269 (H) 04/08/2017 Lab Results Component Value Date [id number] 9.6 04/08/2017 Lab Results Component Value Date APTT 33.1 03/22/2017 Lab Results Component Value Date INRPT 1.04 10/12/2017 DDIMER Date Value Ref Range Status 10/12/2017 0.55 (H) <0.50 ug/mLFEU Final Lab Results Component Value Date TROPONIN 0.15 04/08/2017 CXR No results found for: CXR X-ray Chest 2 View Result Date: 10/12/2017 EXAM: CHEST 2 VIEWS HISTORY: Cough, persistent COMPARISON: CT 03/22/2017, chest radiograp h 03/18/2017 FINDINGS: PA and lateral chest radiograph obtained. Cardiomegaly is unchanged. The lungs are clear. There is no pulmonary edema. No pleural effusion or pneumothorax. No ac [place] osseous abnormality. IMPRESSION: Clear lungs. I have personally reviewed the images a nd, if necessary, edited the report. I agree with the report as now presented. Final signat ure: Jalil Calixto MD 10/12/2017 11:16 AM Preliminary: Jalil Calixto MD Dictation initi ated: Jalil Calixto MD 10/12/2017 11:15 AM X-RAY CLAVICLE LEFT 2 VIEWS Order: [id number] Performed: 10/12/2017 11:11 Status: Final result Visible [...] 89 2.49 89 79 98 PFT's Spirometry ZVL35-68% PRE PSO54-63% PRE (%REF) PEF PRE PEF PRE (%REF) [...] Results Component Value Date TROPONIN 0.15 04/08/2017 Echocardiogram: Lab Results Component Value Date RVSP 97 10/12/2017 RVSP 72 03/22/2017 Echocardiography 10-12-2017 Final Impressions: 1. The left [...] x-descent Blood pressure: 120/87mmHg, MAP 100mmHg Heart [id number] Pulmonary arterial saturation: 59% Hemoglobin:16.8gm/dl Marleny CO:2.26L/min Marleny CI:1.24L/min/m2 [id number] (Using Marleny CO) [id number](Using Marleny CO) Findings at 5ppm of Moris: [...] (Using Marleny CO) Orders Placed This Encounter X-RAY CLAVICLE LEFT 2 VIEWS Standing Status: Future Number of Occurrences: 1 Standing Expiration Date: 11/11/2018 Order Specific Question: Is this paid for by an IRB-approved research study? Answer: No X-RAY CHEST 2 VIEW Standing Status: Future Number of Occurrences: 1 Standing Expiration Date: 11/11/2018 BASIC METABOLIC SET Standing Status: Standing Number of Occurrences: 4 Standing Expiration Date: 11/11/2018 CBC, WITH DIFFERENTIAL Standing Status: Future Number of Occurrences: 1 Standing Expiration Date: 11/11/2018 COMPLETE METABOLIC SET (NA,K,CL,CO2,BUN,CREAT,GLUC,CA,AST,ALT,BILI TOTAL,ALK PHOS,ALB,P ROT TOTAL) Standing Status: Future Number of Occurrences: 1 Standing Expiration Date: 11/11/2018 NT-PRO BNP Standing Status: Future Number of Occurrences: 1 Standing Expiration Date: 11/12/2018 INR Standing Status: Future Number of Occurrences: 1 Standing Expiration Date: 11/11/2018 D-DIMER, (PE OR DIC) Standing Status: Future Number of Occurrences: 1 Standing Expiration Date: 11/11/2018 DRUG SCREEN 9 PANEL, S/P,W/REFLEX QUANT Standing Status: Future Number of Occurrences: 1 Standing Expiration Date: 11/12/2018 TRANSTHORACIC ECHOCARDIOGRAM, ADULT Order Specific Question: Indication Answer: Pulmonary Hypertension Order Specific Question: Expected Date: Answer: 10/12/2018 Order Specific Question: Is a contrast-enhanced study for quantitative LVEF required? Answer: No Order Specific Question: Is agitated saline contrast study required Answer: No Order Specific Question: Is peripheral IV placement contraindicated Answer: No Order Specific Question: 3D volumetric image acquisition for quantification of LV volum es and EF? Answer: No Order Specific Question: 3D volumetric image acquisition to evaluate cardiac valves and structure? Answer: No potassium chloride SR 10 mEq oral tablet,ER particles/crystals Sig: Take 1 tablet by mouth two times daily. With torsemide Dispense: 60 tablet Refill: 5 torsemide 20 mg oral tablet Sig: Take 2 tablets by mouth as needed. Take two tablets in morning and one tablet in trae charlene. Dispense: 60 tablet Refill: 5 spironolactone 25 mg oral tablet Sig: Take 1 tablet by mouth once daily. Dispense: 30 tablet Refill: 5 Ambrisentan 10 mg oral tablet Sig: Take 1 tablet by mouth once daily. Dispense: 30 tablet Refill: 5 documented in this encoun ter Plan of Treatment + +------+--------+ + + | Name | Type | Priori | Associated Diagnoses | Order Schedule | | | | ty | | | + +------+--------+ + + | TRANSTHORACIC | ECG | Routin | Pulmonary | Ordered: 10/12/2017 | | ECHOCARDIOGRAM, | | e | hypertension (HCC) | | | ADULT | | | | | + +------+--------+ + + documented as of this encounter Results DRUG SCREEN 9 PANEL, S/P,W/REFLEX QUANT (10/12/2017 11:47 AM PDT) + + + + + [...] + + + + | COCAINE, | Negative | Cutoff 30 ng/mL | [...] | | | | | determined by [facility] | | | | | | Laboratories. See | | | | | | Compliance Statement B: | | | | | | [employer]/CSP[employer]formed | | | | | | by [employer],[address] | | | | | | [facility],[place] | | | | | | [id number] | | | | | | [phone].[employer]. | | | | | | [facility], | | | | | | Lab. Director | | | | + + + + + + | AMPHETAMINE | Negative | Cutoff 30 ng/mL | [facility] | | | S, S/P, | | [...] [facility] | [address] | [place], [place] | | | [facility] | | [id number] | | + + + + + D-DIMER, (PE OR DIC) (10/12/2017 11:47 AM PDT) + + + + + + | Component | Value | Ref Range | Performed | Pathologist | | | | | At | Signature | + + + + + + | D-DIMER (PE | 0.55 (H) | <0.50 ug/mLFEU | [facility] | | | OR DIC) | | | LABORATORY | | | | | | SERVICES, | | | | | | CORE | | + + + + + + + + | Specimen | + + | Blood - Blood | | (substance) | + + + + + | Narrative | Performed At | + + + | D-Dimer Interpretation: <0.5 PE very unlikely | [facility] | | 0.50-4.0 Seen in ill patients but not diagnostic of thrombosis. | LABORATORY | | >4.0 Compatible with DIC but not diagnostic. If clinically | SERVICES, CORE | | indicated request titration of d-dimer. Values >8.0 | | | are strongly suggestive of DIC. | | + + + + + + + + | Performing | Address | City/State/Zipcode | Phone Number | | Organization | | | | + + + + + | [facility] | [address] | [place] [address] | | | SERVICES, CORE | [address] | | | + + + + + INR (10/12/2017 11:47 AM PDT) + +-------+ + + + | Component | Value | Ref Range | Performed | Pathologist | | | | | At | Signature | + +-------+ + + + | INR | 1.04 | 0.90 - 1.20 INR | [facility] [...] | + + + + + | [facility] | [address] | [place] [address] | | | SERVICES, CORE | [address] | | | + + + + + NT-PRO BNP (10/12/2017 11:47 AM PDT) + + + + + + | Component | Value | Ref Range | Performed | Pathologist | | | | | At | Signature | + + + + + + | NT-PRO BNP | 2,962 (H) | <125 pg/mL | [facility] | [...] [facility] | [address] | [place] [address] | | | SERVICES, CORE | [address] | | | + + + + + COMPLETE METABOLIC SET (NA,K,CL,CO2,BUN,CREAT,GLUC,CA,AST,ALT,BILI TOTAL,ALK PHOS,ALB,PROT TOTAL) (10/12/2017 11:47 AM PDT) + + + + + + | Component | Value | Ref Range | Performed | Pathologist | | | | | At | Signature | + + + + + + | GLUCOSE, | 93 | 70 - 99 mg/dL | [facility] [...] + + + + | CREATININE | 1.32 (H) | 0.60 - 1.10 | [facility] | | | PLASMA | | mg/dL | LABORATORY | | | (LAB) | | | SERVICES, | | | | | | CORE | | + + + + + + | EGFR | 51 (L) | >60 mL/min | [facility] | | | - | | | LABORATORY | | | [place] | | | SERVICES, | | | [...] + + + + | SODIUM, | 141 | 136 - 145 | [facility] | [...] + + + + | ALBUMIN, | 3.8 | 3.5 - 4.7 g/dL | [facility] | | | PLASMA | | | LABORATORY | | | (LAB) | | | SERVICES, | | | | | | CORE | | + + + + + + | ALK PHOS | 104 (H) | 42 - 98 U/L | [facility] | | | | | | LABORATORY | | | | | | SERVICES, | | | | | | CORE | | + + + + + + | AST(SGOT) | 21 | <=41 U/L | [facility] | | [...] using the MDRD equation recommended by the | [facility] | | National Kidney Disease Education Program. Estimated GFR | LABORATORY | | Interpretive Information: <60 mL/min/1.73 sq m | SERVICES, CORE | | Chronic Kidney Disease <15 mL/min/1.73 sq m | | | Kidney Failure Estimated GFR greater that 60 mL/min/1.73 sq m is of | | | limited clinical value. The MDRD equation is not valid in the | | | following situations: - Patients under 18 years of age - Severe | | | malnutrition or obesity - Vegetarian diet - Rapidly changing kidney | | | function - Amputees, paraplegics, or other muscle-wasting diseses | | + + + + + + + + | Performing | Address | City/State/Zipcode | Phone Number | | Organization | | | | + + + + + | [facility] | [address] | [place] [address] | | | SERVICES, [facility] | [address] | | | + + + + + X-RAY CLAVICLE LEFT 2 VIEWS (10/12/2017 11:11 [...] | | | + +---------+ + + X-RAY CHEST 2 VIEW (10/12/2017 11:11 AM [...] Preliminary: Jalil Calixto MD Dictation initiated: Jalil Lin | Riley Calixto MD 10/12/2017 11:15 AM | | + + [...] pulmonary heart diseases | + + | Cough | + + | CKD (chronic kidney disease), stage III (HCC) Chronic kidney disease, Stage III | | (moderate) | + + documented in this encounter
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
--- OUTSIDE RECORDS SUMMARY | ~2019-10-23 | XMS | Encounter Summary ---
Demographics + + + | Address | [address] | | | [place] [address] | + + + | Home Phone | | + + + | Preferred Language | Unknown | + + + | Marital Status | Single | + + + | Uatsdin Affiliation | CHR | + + + [...] Team Providers + +------+ + | Care Crib Clerk Name | Role | Phone | + +------+ + | Eve Daugherty MD | PCP | | + +------+ + Encounter Details +--------+------+ + + + | Date | Type | Department | Care Team | Description | +--------+------+ + + + | 10/12/ | Lab | Laboratory at [facility] | | Pulmonary | | 2018 | | [address] | | hypertension (HCC) | | | | [address] [facility] | | | | | | [place], 3rd floor | | | | | | [place], [place] | | | | | | [address] | | | | | | [phone] | | | +--------+------+ + + + [...] DRUG SCREEN 9 PANEL, | Routin | 10/12/2017 | Pulmonary | Results for this | | S/P,W/REFLEX QUANT | e | 11:47 AM | hypertension (HCC) | procedure are in the | | | | PDT | | results section. | + +--------+ + + + | NT-PRO BNP | Routin | 10/12/2017 | Pulmonary | Results for this | | | e | 11:47 AM | hypertension (HCC) | procedure are in the | | | | PDT | | results section. | + +--------+ + + + | CBC AND AUTO DIFF | Routin | 10/12/2017 | Pulmonary | Results for this | | | e | 11:47 AM | hypertension (HCC) | procedure are in the | | | | PDT | | results section. | + +--------+ + + + | INR | Routin | 10/12/2017 | Pulmonary | Results for this | | | e | 11:47 AM | hypertension (HCC) | procedure are in the | | | | PDT | | results section. | + +--------+ + + + | CBC, WITH | Routin | 10/12/2017 | Pulmonary | Results for this | | DIFFERENTIAL | e | 11:47 AM | hypertension (HCC) | procedure are in the | | | | PDT | | results section. | + +--------+ + + + | COMPLETE METABOLIC | Routin | 10/12/2017 | Pulmonary | Results for this | | SET | e | 11:47 AM | hypertension (HCC) | procedure are in the | | (NA,K,CL,CO2,BUN,CRE | | PDT | | results section. | | AT,GLUC,CA,AST,ALT,B | | | | | | ZENON TOTAL,ALK | | | | | | PHOS,ALB,PROT TOTAL) | | | | | + +--------+ + + + | D-DIMER, (PE OR DIC) | Routin | 10/12/2017 | Pulmonary | Results for this | | | e | 11:47 AM | hypertension (HCC) | procedure are in the | | | | PDT | | results section. | + +--------+ + + + documented in this encounter Results CBC AND AUTO DIFF (10/12/2017 11:47 AM PDT) + + + + + + | Component | Value | Ref Range | Performed | Pathologist | | | | | At | Signature | + + + + + + | WHITE CELL | 9.33 | 3.50 - 10.80 | [facility] | | | COUNT | | K/cu mm | LABORATORY | | | | | | SERVICES, | | | | | | CORE | | + + + + + + | RED CELL | 4.56 | 4.00 - 5.20 | [facility] | [...] + + + + | HEMATOCRIT | 43.1 | 36.0 - 46.0 % | [facility] | | | | | | LABORATORY | | | | | | SERVICES, | | | | | | CORE | | + + + + + + | MCV | 94.5 | 80.0 - 100.0 fL | [facility] | | | | | | LABORATORY | | | | | | SERVICES, | | | | | | CORE | | + + + + + + | MCHC | 34.3 | 32.0 - 36.0 | [facility] | | | | | g/dL | LABORATORY | | | | | | SERVICES, | | | | | | CORE | | + + + + + + | RDW SD | 45.2 | 35.1 - 46.3 fL | [facility] | | | | | | LABORATORY | | | | | | SERVICES, | | | | | | CORE | | + + + + + + | PLATELET | 241 | 150 - 400 K/cu | [facility] [...] + + + + | LYMPHOCYTE | 27.1 | 18.0 - 42.0 % | [facility] | | | % | | | LABORATORY | | | | | | SERVICES, | | | | | | CORE | | + + + + + + | MONOCYTE % | 6.0 | 3.5 - 9.0 % | [facility] | | | | | | LABORATORY | | | | | | SERVICES, | | | | | | CORE | | + + + + + + | EOS % | 3.6 (H) | 1.0 - 3.0 % | [...] + + + + | IG% | 0.3Comment: Increased | 0.0 - 1.0 % | [...] + + + + | NEUTROPHIL | 5.82 | 1.80 - 7.70 | [facility] | | | # | | K/cu mm | LABORATORY | | | | | | SERVICES, | | | | | | CORE | | + + + + + + | LYMPHOCYTE | 2.53 | 1.00 - 4.80 | [facility] | | | # | | K/cu mm | LABORATORY | | | | | | SERVICES, | | | | | | CORE | | + + + + + + | MONOCYTE # | 0.56 | 0.10 - 0.90 | [facility] | | | | | K/cu mm | LABORATORY | | | | | | SERVICES, | | | | | | CORE | | + + + + + + | EOS # | 0.34 | 0.00 - 0.50 | [facility] | [...] At | + + + | New pediatric reference ranges for Lymphocyte % in effect July 22, | [facility] | | 2018. New reference ranges for MCV, MCHC, PLT, IG% and IG# | LABORATORY | | effective 06/17/2017 Increased immature granulocytes (IG) define a | SERVICES, CORE | | left shift. Immature granulocytes (IG) are an automated count of | | | metamyelocytes, myelocytes and promyelocytes. Bands are not included | | | in the IG count. Bands are included in the neutrophil count. | | + + + + + + + + | Performing | Address | City/State/Zipcode | Phone Number | | Organization | | | | + + + + + | [facility] [employer] | [address] | [place] [address] | | | SERVICES, CORE | [address] | | | + + + + + DRUG SCREEN 9 PANEL, S/P,W/REFLEX QUANT (10/12/2017 [...] | | | | | determined by [facility] | | | | | | Laboratories. See | | | | | | Compliance Statement B: | | | | | | [email or web address] | | | | | | by [email or web address],[address] | | | | | | [address] [place] | | | | | | [address] | | | | | | [phone]. | | | | | | Moises [...] [facility] | [address] | [place], [place] | | | [facility] | | [address] | | + + + + + [...] [facility] | [address] | [place] [address] | | | SERVICES, CORE | [address] [...] | + + + + + | [facility] | [address] | [place] [address] | | | SERVICES, CORE | [address] [...] + + | [facility] | [address] [facility] | [place] [address] | | | SERVICES, [facility] [...] | | | LABORATORY | | | [address] | | | SERVICES, | | | [...] | + + + + + | [facility] | [address] | [place] [address] | | | SERVICES, CORE | [address] | | | + + + + + documented in this encounter Visit Diagnoses + + | Diagnosis | + + | Pulmonary hypertension (HCC) Other chronic pulmonary heart diseases | + + documented in this encounter
--- OUTSIDE RECORDS SUMMARY | ~2019-10-23 | XMS | Encounter Summary ---
Demographics + + + | Address | [address] | | | [place] [address] | + + + | Home Phone | | + + + | Preferred Language | Unknown | + + + | Marital Status | Single | + + + | Zoroastrian Affiliation | CHR | + + + [...] Team Providers + +------+ + | Care Splitter Operator Name | Role | Phone | [...] Michael | | | | | at [facility] | [facility] | | | | | [address] | [place] [address] | | | | | [address] | | | | | | [place], [address] [place] [address] | | | | | | [place], [place] | | | | | | [address] | | | | | | [phone] | | | +--------+ + + + [...] in this encounter Results 12 LEAD ECG (11/25/2018 1:22 PM PDT) [...] + + + + | [facility] | 445 | ms | [facility] [...] + + | [facility] | [address] | [place], [place] | | | CARDIOLOGY | [address] | [address] | | + + + + + documented in this encounter Visit Diagnoses Not on filedocumented in this encounter"
--- OUTSIDE RECORDS SUMMARY | ~2019-10-23 | XMS | Encounter Summary ---
Demographics + + + | Address | [address] | | | [place] [address] | + + + | Home Phone [...] Team Providers + +------+ + | Care Sample Tailor Name | Role | Phone | + [...] | Pulmonary | MD Rosangela | [facility] [address] | | | | | hypertension | [address] | [address] | | | | | ([facility]) | Kevin Chavarria | [address] | | | | | Procedures | Rd | [place] | | | | | TRANSTHORACI | [place], [place] | Building, 2nd | | | | | C | [address] | floor | | | | | ECHOCARDIOGR | Phone: | [place], [place] | | | | | AM, ADULT | [phone] | [address] | | | | | DE TTE | Fax: | Phone: | | | | | W/DPPLR, | [phone] | [phone] | | | | | COMP | | | +--------+--------+ + + + + Reason for Visit + +--------+ + | Reason | Onset | Comments | | | Date | | + +--------+ + | Patient's Condition | 03/22/ | | | Worsened | 2019 | | + +--------+ + Encounter Details +--------+ + + + + | Date | Type | Department | Care Team | Description | +--------+ + + + + | 03/22/ | Telephone | Pulmonary & | Rosangela Hall MD | Patient's Condition | | 2019 | | Critical Care | [address] | Worsened | | | | Medicine at | [address] [place], | | | | | [facility] | [place] [address] | | | | | [address] | [phone] | | | | | [address] | | | | | | Pavilion, 3rd Floor | | | | | | [place], [place] | | | | | | [address] | | | | | | [phone] | | | +--------+ + + + [...] Telephone Encounter - Rosangela Hall MD - 03/22/2018 9:33 AM PST----- Message from Alma Delia bermudez sent at 03/22/2018 9:15 AM PST ----- Regarding: ECHO order Hi Dr. Hall, Could you please place a new order for this patient's ECHO. They had to reschedule today du e to weather and next available is 07/26/18 which is past the ECHO expiration date. Also- see telephone encounter routed to you regarding the reschedule. Thank you! Alma Delia elephone Encounter - Alma Delia Mann - 03/22/2018 9:09 AM PSTPatient called to reschedule their 03/22/18 appo intment due to weather. The first available appointment with Dr. Hall is 07/26/18, which she has been scheduled for and added to waitlist. Patient's condition is worsening and she is co ncerned about having to wait so long for a follow-up. Patient reports high fluid overload, h aving to sleep sitting up and very sensitive gag reflex. She requests that provider either t ry to work her into schedule or contact her for assistance with her care plan. Routing to provider. do cumented in this encounter Plan of Treatment Not [...] Performed At | + + + | [facility] | [facility] | | [facility] Adult Echocardiography Laboratory [address] CARDIOLOGY | | [place], [place] [address] Ph: | | | Pt Name: GEMA BARRON | | | Study Date/Time 03/23/2019 / 7:34:07 AMMRN: [id number] | | | Most recent prior: 11/15/2018Acc #: [id number] | | | No. previous echos: 3DOB: 1965 54 years Heart | | | Rate: 94 bpmHeight: 64.0 in Blood | | | Pressure: 115/74 mm/HgWeight: 190.0 lb | | | Gender: FBSA: 1.91 m | | | Order ID: [id number] Study | | | Location: OPSonographer: Eliana Gomez [facility]Referring Provider: ROSANGELA | | | KHANModalities Performed: 2D, Color flow, Spectral Doppler.Study | | | Quality: Good.Exam Indication: CardiomyopathyHistory: 53 y.o. 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 Patient history has been | | | obtained from the [facility] Transthoracic Echocardiographic Report | | | + [...] Report electronically signed | | | by: [id number] Joshua Harmon MD (03/23/2019, 1:56:42 PM)Fellow(s) | [...] | | | |Report electronically signed by: [id number] Joshua Harmon MD (03/23/2019, 1:56:42 PM) | | |Fellow(s) participating in diagnosis: Rajiv Covington; | | | | | | | | | | | | Final | | + + + + + | Procedure Note | + + | Interface, Cardiology Results - 03/23/2019 1:56 PM [facility] | | [facility] [facility] Echocardiography Laboratory [address] [place] [address] | | [place], [place] [address] Pt Name: GEMA Hughes | | JAKI Study Date/Time 03/23/2019 / 7:34:07 AMMRN: [id number] Most | | recent prior: 11/15/2018Acc #: [id number] No. previous echos: 3DOB: | | 1965 54 years Heart Rate: 94 bpmHeight: 64.0 in Blood | | Pressure: 115/74 mm/HgWeight: 190.0 lb Gender: FBSA: | | 1.91 m | | Order ID: [id number] Study Location: OPSonographer: Eliana Gomez | | [...] and indexed values Report electronically signed by: [id number] Joshua | | Eden VAZQUEZ (03/23/2019, 1:56:42 [...] | | | |Report electronically signed by: [id number] Joshua Harmon MD (03/23/2019, 1:56:42 PM) | |Fellow(s) participating in diagnosis: Rajiv Covington; | | | | | | | | Final | + + + + + + + | Performing | Address | City/State/Zipcode | Phone Number | | Organization | | | | + + + + + | [facility] | [address] | [place], [place] | | | CARDIOLOGY | [address] | [address] | | + + + + + documented in this encounter Visit Diagnoses + + | Diagnosis | + + | Pulmonary hypertension (HCC) - Primary Other chronic pulmonary heart diseases | + + documented in this encounter
--- OUTSIDE RECORDS SUMMARY | ~2019-10-23 | XMS | Encounter Summary ---
Demographics + + + | Address | [address] | | | [place] [address] | + + + | Home Phone [...] Providers + +------+ + | Care Director Of Athletics Name | Role | Phone | + +------+ + | Eve Daugherty MD | PCP | | + +------+ + Reason for Visit + +--------+ + | Reason | Onset | Comments | | | Date | | + +--------+ + | Refill Request | 05/11/ | Ric | | | 2019 | | + +--------+ + Encounter Details +--------+--------+ + + + | Date | Type | Department | Care Team | Description | +--------+--------+ + + + | 05/11/ | Refill | Pulmonary & | Mya Hall MD | Refill Request | | 2019 | | Critical Care | [address] | ([place]) | | | | Medicine at | Park [facility], | | | | | [facility] | [place] [address] | | | | | [address] | [phone] | | | | | [address] [facility] | | | | | | [place], [address] [place] [address] | | | | | | [place], [place] | | | | | | [address] | | | | | | [phone] | | | +--------+--------+ + + + [...] Telephone Encounter - Mindi Irwin MA - 05/11/2018 10:06 AM PDTFormatting of this not e might be different from the original. REFILL REQUEST DATE: May 11, 2018 PATIENT: Gema Barron [id number] MESSAGE: Received a refill request from the pharmacy. Requested Prescriptions Pending Prescriptions Disp Refills Ambrisentan (LETAIRIS) 10 mg oral tablet 30 tablet 11 Sig: Take 1 tablet by mouth once daily. Indications: pulmonary arterial hypertension LAST APPOINTMENT: 10/12/17 at 3:39 pm NEXT APPOINTMENT: 07/26/18 at 3:30 pm Patient's pharmacy has been verified: Yes [facility] [address] [place] [address] documented in this encounter Plan of Treatment Not on filedocumented as of this encounter Visit Diagnoses + + | Diagnosis | + + | Pulmonary hypertension (HCC) Other chronic pulmonary heart diseases | + + documented in this encounter"
--- OUTSIDE RECORDS SUMMARY | ~2019-10-23 | XMS | Encounter Summary ---
Demographics + + + | Address | [address] | | | [place] [address] | + + + | Home Phone | | + + + | Preferred Language | Unknown | + + + | Marital Status | Single | + + + | Quaker Affiliation | CHR | + + + [...] Team Providers + +------+ + | Care Crushed Stone Grader Name | Role | Phone | + +------+ + | Bobbi Jenkins NP | PCP | | + +------+ + Encounter Details +--------+ + + + + | Date | Type | Department | Care Team | Description | +--------+ + + + + | 05/04/ | Pharmacy | Outpatient Retail | | | | 2017 | Visit | [facility] | | | | | | [address] | | | | | | Loop [place], [place] | | | | | | [address] | | | | | | [phone] | | | +--------+ + + + [...]
--- OUTSIDE RECORDS SUMMARY | ~2019-10-23 | XMS | Encounter Summary ---
Demographics + + + | Address | [address] | | | [place] [address] | + + + | Home Phone | | + + + | Preferred Language | Unknown | + + + | Marital Status | Single | + + + | Sabianism Affiliation | CHR | + + + [...] Team Providers + +------+ + | Care Agricultural Real Estate Agent Name | Role | Phone | + +------+ + | Bobbi Jenkins NP | PCP | | + +------+ + Encounter Details +--------+ + + + + | Date | Type | Department | Care Team | Description | +--------+ + + + + | 04/21/ | Telephone | Pulmonary & | Darryl Longoria MD | | | 2020 | | Critical Care | [address] | | | | | Medicine at | [facility], | | | | | [address] | [place] [address] | | | | | [address] | [phone] | | | | | [address] | | | | | | [place], [address] [place] [address] | | | | | | [place], [place] | | | | | | [address] | | | | | | [phone] | | | +--------+ + + + [...] this encounter Miscellaneous Notes Telephone Encounter - Darryl Longoria MD - 04/22/2019 9:29 PM PDTLow-grade fever: 100 last night, 99.1 tonight and sore throat since last night; no Tylenol Dry cough for a few days Sinus congestion for a few days No myalgias; did sleep the majority of the day today Chest tightness/mild ache when trying to inhale deeply; no chest pressure with exertion/pos ition, no syncope Typical O2 sat is 91-92%, currently 90% No peripheral edema; "I'm really good at watching out for that" Patient wondering whether she needs to go to an ER to get tested for COVID, etc. DDx: Viral URI, influenza, COVID, sinus infection Plan: - Home supportive care - Monitor O2, temperature, LE edema, and chest symptoms for any worsening - If sig worsening, would likely route to local ER for influenza +/- COVID testing (pt live s 4+ hrs away from [place]) - Advised patient to use sinus rinses and hot showers to help clear her sinuses; cautioned her about using OTC decongestant pills/syrups due to potential blood pressure effects; she s tates she understands this point Patient will call back if any worsening. Agreeable to plan. documented in this encounter Plan of Treatment Not on filedocumented as of this encounter Visit Diagnoses Not on filedocumented in this encounter
--- OUTSIDE RECORDS SUMMARY | ~2019-10-23 | XMS | Encounter Summary ---
Demographics + + + | Address | [address] | | | [place] [address] | + + + | Home Phone [...] Team Providers + +------+ + | Care Aeronautical Design Engineer Name | Role | Phone | + +------+ + | Eve Daugherty MD | PCP | | + +------+ + Reason for Visit + +--------+ + | Reason | Onset | Comments | | | Date | | + +--------+ + | Weight gain | 06/16/ | | | | 2017 | | + +--------+ + Encounter Details +--------+ + + + + | Date | Type | Department | Care Team | Description | +--------+ + + + + | 06/16/ | Telephone | Pulmonary & | Rosangela Hall MD | Weight gain | | 2018 | | Critical Care | [address] | | | | | Medicine at | [address] [place], | | | | | [facility] | [place] [address] | | | | | [address] | [phone] | | | | | [address] [facility] | | | | | | [place], [address] [place] [address] | | | | | | [place], [place] | | | | | | [address] | | | | | | [phone] | | | +--------+ + + + [...] Telephone Encounter - Mindi Irwin MA - 07/01/2017 11:26 AM PDTTried calling patient on her aunt's number and was unable to reach anyone. Faxed lab for electrolytes to her pcp Mariaelena Daugherty's office where she typically has her labs drawn. Will try reaching patient mark allen at a later time to see if there's another place she would prefer to have her labs sent. El ectronically signed by Mindi Irwin MA at 07/01/2017 11:28 AM PDTAddendum Note - Rosangela aHll MD - 06/30/2017 2:23 PM PDT Addended by: ROSANGELA HALL MD on: 06/30/2017 02:23 PM Modules accepted: Orders elephone Encounter - Rosangela Reyes MD - 06/30/2017 2:21 PM PDTI spoke with Ms. Barron over the phone. She is doin g salt and fluid restriction but continues to have fluid retention. Current plan is to rosenthal e furosemide twice daily to torsemide 40 mg in the morning and 20 mg in the afternoon along with 40 mEq of potassium with each dose. She will get electrolytes checked next week and sen d us the results. She will go to the emergency room if there is any change or worsening in h er condition. She will also call the clinic to schedule an earlier appointment. I will have patient respiratory support technician send request for electrolytes to a hospital close to patient's home.El ectronically signed by Rosangela Hall MD at 06/30/2017 2:23 PM PDTTelephone Encounter - Mindi Irwin MA - 06/30/2017 12:[address] Hall's call PAS staff asked if it would be appropriate to page him. Informed that Dr. Hall is out of office and asked that they transfer the call to me. I spoke with the Ms. Barron who reports that she is still ex periencing issues with weight gain. She was seen in the ED in [place] on Wednesday and was di uresed, on Wednesday morning she had a 4 lb weight gain and took 40 mg of Lasix, when she wok e up on Wednesday she had a 6 lb weight gain in addition to the gain on Wednesday. Patient repor ts bilateral kidney pain that she rated at a 6, denies fever but reports severe hot flashes. Patient's phone is broke and she is working on getting a new one, she asked that we call he r aunt at the number she was previously reached at and Rosamaria would be able to call Dr. Hall back right away. el ephone Encounter - Rosangela Hall MD - 06/30/2017 11:42 AM PDTI tried to call Gema on 018. I was unable to reach her as her phone was disconnected. I spoke to her sister and got a number for her aunt [phone]. I have left a message with her aunt for patient to call me back. elephone Encount er - Mindi Irwin MA - 06/16/2017 9:25 AM PDTPatient calling in to report that she irene s gained 8 pounds in the last 12 days. Per PAS she is unable to get in with Dr. Hall before 07/13. Patient was scheduled 06/08 but had to cancel due to transportation issues. Dr. Hall want s to see her sooner rather than later. Will route to Dr. 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
--- OUTSIDE RECORDS SUMMARY | ~2019-10-23 | XMS | Encounter Summary ---
Demographics + + + | Address | [address] | | | [place] [address] | + + + | Home Phone [...] Author + + + | Author | [facility] | + + + | Organization | [facility] | + + + | [...] Team Providers + +------+ + | Care Health Care Law Specialist Name | Role | Phone | [...] + + + + | 03/24/ | Results/Int | Pulmonary Function | | Dyspnea and | | 2017 | erpretation | Lab at [facility] [address] | | respiratory | | | | [address] | | abnormalities | | | | [facility] | | (Primary Dx) | | | | [place], [place] | | | | | | [address] | | | | | | [phone] | | | +--------+ + + + [...] encounter Progress Notes Cristobal Brown MD - 03/29/2017 11:01 AM PST Refer to PFT report. d ocumented in this encounter Plan of Treatment Not on filedocumented as of this encounter Procedures + +--------+ + + + | Procedure Name | Priori | Date/Time | Associated Diagnosis | Comments | | | ty | | | | + +--------+ + + + | IN SPIROMETRY TEST | Routin | 03/29/2017 | Dyspnea and | | | | e | 11:01 AM | respiratory | | | | | PST | abnormalities | | + +--------+ + + + documented in this encounter Visit Diagnoses + + | Diagnosis | + + | Dyspnea and respiratory abnormalities - Primary | + + documented in this encounter"
--- OUTSIDE RECORDS SUMMARY | ~2019-10-23 | XMS | Encounter Summary ---
Demographics + + + | Address | [address] | | | [place] [address] | + + + | Home Phone [...] Team Providers + +------+ + | Care Business Intern Name | Role | Phone | + +------+ + | Bobbi Jenkins NP | PCP | | + +------+ + Encounter Details +--------+ + + + + | Date | Type | Department | Care Team | Description | +--------+ + + + + | 12/13/ | Document-Sc | Pulmonary & | Kate Benjamin, | | | 2019 | anned | Critical Care | [address] | | | | | Medicine at | [facility] | | | | | [address] | [place], [place] | | | | | [address] | [address] | | | | | [address] | [phone] | | | | | [place], [facility] Floor | | | | | | [place], [place] | | | | | | [address] | | | | | | [phone] | | | +--------+ + + + [...]
--- OUTSIDE RECORDS SUMMARY | ~2019-10-23 | XMS | Encounter Summary ---
Demographics + + + | Address | [address] | | | [place] [address] | + + + | Home Phone [...] Team Providers + +------+ + | Care General Helper Name | Role | Phone | + +------+ + | Bobbi Jenkins NP | PCP | | + +------+ + Reason for Visit + +--------+ + | Reason | Onset | Comments | | | Date | | + +--------+ + | Medication Refill | 06/29/ | torsemide | | | 2020 | | + +--------+ + Encounter Details +--------+ + + + + | Date | Type | Department | Care Team | Description | +--------+ + + + + | 06/29/ | Telephone | Pulmonary & | Beth Keith, | Medication Refill | | 2019 | | Critical Care | [address] | (torsemide) | | | | Medicine at | [facility] | | | | | Physicians [facility] | [place], [place] | | | | | [address] | [address] | | | | | [facility] | [phone] | | | | | Donna, [address] [place] [address] | | | | | | [place], [place] | | | | | | [address] | | | | | | [phone] | | | +--------+ + + + [...] this encounter Miscellaneous Notes Telephone Encounter - Cornelia Israel - 06/30/2019 3:16 PM PDTIncoming phone call from: Gema Regarding: medication request -- refill of torsemide, states she will be out at the end of today To be sent to [facility] Patient states that Rx request was faxed today from pharmacy Call back at [phone] (home) Routing as high priority as patient states she will be out before the weekend starts documented in this encounter Plan of Treatment Not on filedocumented as of this encounter Visit Diagnoses Not on filedocumented in this encounter"
--- OUTSIDE RECORDS SUMMARY | ~2019-10-23 | XMS | Encounter Summary ---
Demographics + + + | Address | [address] | | | [place] [address] | + + + | Home Phone [...] Team Providers + +------+ + | Care Copy Center Associate Name | Role | Phone | + +------+ + | Eve Daugherty MD | PCP | | + +------+ + Reason for Visit + +--------+ + | Reason | Onset | Comments | | | Date | | + +--------+ + | Weight gain | 06/25/ | | | | 2017 | | + +--------+ + Encounter Details +--------+ + + + + | Date | Type | Department | Care Team | Description | +--------+ + + + + | 06/25/ | Telephone | Pulmonary & | Mya Hall MD | Weight gain | | 2018 | | Critical Care | [address] | | | | | Medicine at | [address] [place], | | | | | [facility] | [place] [address] | | | | | [address] | [phone] | | | | | [facility] | | | | | | Donna, [address] [place] [address] | | | | | | [place], [place] | | | | | | [address] | | | | | | [phone] | | | +--------+ + + + [...] Telephone Encounter - Mindi Irwin MA - 06/25/2017 3:18 PM PDTReceived a voicemail f rom the patient left around 11:30 stating that she was retaining fluid again and has gained more weight. She stated that her kidneys were hurting her today and yesterday. I also spoke with the patient later in the afternoon today, she was coughing frequently over the phone. R eported that she had gained 3 pounds in the last 24-48 hours, she has taken her lasix and it did nothing for her. She called in to ask if she should up her dosage of lasix or go to her local ED. I let the patient know that Dr. Hall is out of the office but I would contact our consult fellow and get back to her. Paged Dr. Bhanu Arnold and spoke with him regarding t he patient and her current condition, he advised that I should inform patient that she shoul d go to ED to be evaluated especially if she was feeling that it may be necessary. Called [facility], spoke with Rosamaria and informed her of this, she stated that she would go in. Routing to Mariaelena Hall so he is aware. documented in this encounter Plan of Treatment Not on filedocumented as of this encounter Visit Diagnoses Not on filedocumented in this encounter"
--- OUTSIDE RECORDS SUMMARY | ~2019-10-23 | XMS | Encounter Summary ---
Demographics + + + | Address | [address] | | | [place] [address] | + + + | Home Phone [...] Team Providers + +------+ + | Care Diet Aid Name | Role | Phone | + [...] Description | +--------+--------+ + + + | 11/06/ | Refill | Pulmonary & | Mya Hall MD | Refill Request | | 2019 | | Critical Care | [address] | | | | | Medicine at | [facility], | | | | | [facility] | [place] [address] | | | | | [address] | [phone] | | | | | [facility] | | | | | | Donna, [facility] Floor | | | | | | [place], [place] | | | | | | [address] | | | | | | [phone] | | | +--------+--------+ + + + [...] Telephone Encounter - Sydni Saldana MA - 11/07/2018 8:40 AM PDTFormatting of this note horacio ht be different from the original. REFILL REQUEST DATE: November 07, 2018 PATIENT: Gema Barron [id number] MESSAGE: On current med list Requested Prescriptions Pending Prescriptions Disp Refills TORSEMIDE 20 mg oral tablet [Pharmacy Med Name: TORSEMIDE 20 MG TABLET] 60 tablet 2 Sig: take 2 tablets by mouth every morning and 1 tablet by mouth EVERY EVENING LAST APPOINTMENT: 10/12/17 at 3:37 pm NEXT APPOINTMENT: 11/17/18 at 2:15 pm Patient's pharmacy has been verified: Yes [facility] [facility].[address] [place] [id number] documented in this encou nter Plan of Treatment Not on filedocumented as of this encounter Visit Diagnoses Not on filedocumented in this encounter"
--- OUTSIDE RECORDS SUMMARY | ~2019-10-23 | XMS | Encounter Summary ---
Demographics + + + | Address | [address] | | | [place] [address] | + + + | Home Phone [...] + + + | Author | [facility] | + + + | Organization | [facility] | + + + | [...] Team Providers + +------+ + | Care Shipyard Supervisor Name | Role | Phone | + +------+ + | Eve Daugherty MD | PCP | | + +------+ + Reason for Visit + +--------+ + | Reason | Onset | Comments | | | Date | | + +--------+ + | Social Work Notes | 06/10/ | | | | 2018 | | + +--------+ + Encounter Details +--------+ + + + + | Date | Type | Department | Care Team | Description | +--------+ + + + + | 06/10/ | Telephone | SOCIAL WORK | Kathleen Diana | Social Work Notes | | 2018 | | AMBULATORY [address] | | | | | [address] | [place], | | | | | Mailcode: CH6A | [place] [address] | | | | | [place], [place] | | | | | | [address] | | | | | | [phone] | | | +--------+ + + + [...] this encounter Miscellaneous Notes Telephone Encounter - Kathleen Diana - 06/10/2017 2:48 PM PDTSocial Work Specialist Brief I ntervention Identified needs: transportation assistance request from the Vascular clinic Interventions: called patient and provided her the phone number to the Transportation [employer] [phone]. Explained the medical brokerage can provide round-trip transportation to [facility] medical appointments at no cost. Asked her to call the clinic and reschedule her appointme nt with Dr. Hall. Provided the patient with my contact information. No additional social wo rk interventions anticipated at this time. Kathleen Diana Manager Mining Associate Professor Of Biblical Studies [phone] signed by Kathleen Diana at 06/10/2017 2:57 PM PDTdocumented in t his encounter Plan of Treatment Not on filedocumented as of this encounter Visit Diagnoses Not on filedocumented in this encounter"
--- OUTSIDE RECORDS SUMMARY | ~2019-10-23 | XMS | Encounter Summary ---
Demographics + + + | Address | [address] | | | [place] [address] | + + + | Home Phone [...] Author + + + | Author | [facility] | + + + | Organization | [facility] | + + + | Address [...] Team Providers + +------+ + | Care Elevator Troubleshooter Name | Role | Phone | + [...] | | | | | | [place] [address] | | | +--------+--------+ + + + [...]
[~2019-10-23 19:36] MED LIST: FUROSEMIDE40 MG PO; GUAIFEN-CODEINE10 ML PO; SILDENAFIL20 MG PO
[2019-10-23] MEDS ORDERED: TORSEMIDE20 MG PO (19:52)
[2019-10-23] MEDS ORDERED: POTASSIUM CHLO20 ME1 PO (19:52)
[2019-10-23] MEDS ORDERED: ALBUTEROL2.5 MG/3 M INH (19:53)
[2019-10-23] MEDS ORDERED: VENTOLIN HFA18 GM INH (19:55)
[2019-10-23] MEDS ORDERED: LETAIRIS10 MG PO (19:56)
[2019-10-23] MEDS ORDERED: IPRAT-ALBUT 0.5-3 ML NEB (19:58)
[2019-10-23] MEDS ORDERED: DOXYCYCLINE HY100 MG PO (23:00)
--- NOTE | 2019-10-24 14:02 | EKG ---
[facility] [address] [facility] [place] [address] Signed Normal sinus rhythm Rightward axis ST \T\ T wave abnormality, consider anterior ischemia Abnormal ECG When compared with ECG of 25-JUN-2017 16:45, Nonspecific T wave abnormality no longer evident in Inferior leads T wave inversion no longer evident in Lateral leads Confirmed by JOSE VERNON DO ([id number]) on 10/24/2019 2:02:40 PM Electronically Signed By: JOSE VERNON DO 10/24/19 1402 PATIENT NAME: GATITO POLLACK Electrocardiogram DATE OF : 63 PHYSICIAN: JOSE VERNON DO REPORT #: [id number] REPORT IS CONFIDENTIAL AND NOT TO BE RELEASED WITHOUT AUTHORIZATION
--- NOTE | 2019-10-24 18:35 | PATH ---
[facility] [address] [facility] [place], [place] [address] Signed ORDERING PHYSICIAN: Mabel Braxton MD PATIENT NAME: GATITO POLLACK GENDER: Venus : 1965 SPECIMEN(S): No Source Given MOLECULAR PATHOLOGY RESULTS: SARS-CoV-2 Not Detected ADDITIONAL NOTES.: The [place] Fusion SARS-CoV-2 Assay is a multiplex real-time PCR (RT-PCR) in vitro diagnostic test intended for the qualitative detection of RNA from SARS-CoV-2 from individuals who meet COVID-19 clinical and/or epidemiological criteria. In general, SARS-CoV-2 RNA can be detected during the acute phase of infection. Positive results indicate the presence of SARS-CoV-2 RNA. Clinical correlation with patient history and other diagnostic information is necessary to determine patient infection status. Positive results do not rule out bacterial infection or co-infection with other viruses. Negative results do not preclude SARS-CoV-2 infection and should not be used as the sole basis for patient management decisions. Negative results must be combined with other clinical observations, patient history, and epidemiological information. The [place] Fusion SARS-CoV-2 Assay is not yet approved or cleared by the [place] FDA. When there are no FDA-approved or cleared tests available, and other criteria are met, FDA can make tests available under an emergency access mechanism called an Emergency Use Authorization (EUA). The EUA for this test is supported by the Tankage Grinder Operator of Health and Human Service's (HHS's) declaration that circumstances exist to justify the emergency use of in vitro diagnostics for the detection and/or diagnosis of the virus that causes COVID-19. This EUA will remain in effect for the duration of the COVID-19 declaration justifying emergency of IVDs, unless it is terminated or revoked by FDA, after which the test may no longer be used. The [place] Fusion SARS-CoV-2 Assay is for use only under EUA in US laboratories certified under the Clinical Laboratory Improvement Amendments of 1988 (CLIA) to perform high complexity tests. [facility] is certified under CLIA to perform high complexity PATIENT NAME: GATITO POLLACK PATHOLOGY DATE OF : 63 REPORT #: [id number] PHYSICIAN: AYSHA ROMERO PCP: OTHER PCP REPORT IS CONFIDENTIAL AND NOT TO BE RELEASED WITHOUT AUTHORIZATION [facility] [address] [place] [id number] Signed clinical laboratory testing. PERFORMING LABORATORY.: Molecular testing was performed by [facility], 1928–[address] [place] [address] (Trademark Affixer: Brandon Price D.O.; CLIA#: [id number]) Diagnostician: System Interface Pathologist Electronically Signed 10/24/2019 Copies: ~ PATIENT NAME: GATITO POLLACK PATHOLOGY DATE OF : 63 REPORT #: [id number] PHYSICIAN: AYSHA ROMERO PCP: OTHER PCP REPORT IS CONFIDENTIAL AND NOT TO BE RELEASED WITHOUT AUTHORIZATION
== END 2019-10-23 23:36 | disposition home or self-care (01) ==
LOC: ED 19:36
DX: R07.9 Chest pain, unspecified (principal); R06.00 Dyspnea, unspecified; J18.9 Pneumonia, unspecified organism; Z20.828 Contact with and (suspected) exposure to other viral communicable diseases; I27.20 Pulmonary hypertension, unspecified; I50.9 Heart failure, unspecified; Z87.891 Personal history of nicotine dependence; Z88.5 Allergy status to narcotic agent; Z79.899 Other long term (current) drug therapy
CPT/HCPCS: 71045; 71260; 80053; 83735; 83880; 84484; 85025; 85379; 85610; 85730; 93005; 93010; 99285-25; C9803; J1170; J2405; Q9967

== ENCOUNTER 2020-06-13 13:57 | Observation (INO) | payer OTHER ==
[~2020-06-13] VITALS: Ht 167.6 cm; Wt 99.2 kg
[~2020-06-13 13:57] MED LIST changes: +ALBUTEROL2.5 MG/3 M INH; +DOXYCYCLINE HY100 MG PO; +IPRAT-ALBUT 0.5-3 ML NEB; +LETAIRIS10 MG PO; +POTASSIUM CHLO20 ME1 PO; +TORSEMIDE20 MG PO; +VENTOLIN HFA18 GM INH
[2020-06-13] MEDS ORDERED: TADALAFIL20 MG PO (14:21)
[2020-06-13] MEDS ORDERED: TAMOXIFEN CITRA20 MG PO (14:21)
--- NOTE | 2020-06-13 18:58 | EKG ---
[facility] [address] [facility] [place] [address] Signed Normal sinus rhythm Rightward axis Nonspecific ST and T wave abnormality Prolonged QT Abnormal ECG No previous ECGs available Confirmed by BIJU FERRER MD ([id number]) on 06/13/2020 6:58:31 PM Electronically Signed By: BIJU FERRER MD 06/13/20 1858 PATIENT NAME: GATITO POLLACK Electrocardiogram DATE OF : 63 PHYSICIAN: BIJU FERRER MD REPORT #: [id number] REPORT IS CONFIDENTIAL AND NOT TO BE RELEASED WITHOUT AUTHORIZATION
--- NOTE | 2020-06-13 21:51 | NUR ---
PT ARRIVED TO [facility] FLOOR. SHE IS ON 4LNC CHRONIC. VS AND WEIGHT ENTERED. SHE IS ALERT AND ORIENTED, PT IS ORIENTED TO THE ROOM AND CALL LIGHT.
--- NOTE | 2020-06-13 22:00 | NUR ---
IN TO PROVIDE RN WITH TELE, PT ARRIVED TO THE FLOOR, RN IN RM
--- NOTE | 2020-06-13 22:35 | NUR ---
COMPLETED ADMISSION HX WITH PT, SHE DENIES FURTHER NEEDS AT THIS TIME. PRIMARY RN YANNICK IS IN ROOM GIVING MEDICATIONS. CALL LIGHT IS CLOSE.
--- NOTE | 2020-06-14 00:11 | NUR ---
PT IS RESTING WITH EYES CLOSED, RR IS EVEN AND NONLABORED. CALL LIGHT IS CLOSE.
--- NOTE | 2020-06-14 01:00 | NUR ---
Pt up to bsc, O2 in place 4L chronic at home. sob with exertion noted. Back to be, independent. has voided large amounts of yellow urine. Aware of fluid restrictions. ate partially sub sandwich that she brought and a pop. tolerated well, no emesis, fresh water given. call light at bedside, turns and repositions self
--- NOTE | 2020-06-14 05:15 | NUR ---
PT ADMITTED FROM ED DEPT. CHRONIC O2 USE AT HOME. ON 4LNC O2 ON ADMIT. SOB WITH EXERTION NOTED. LUNGS DIM AT BASES WITH R SIDED FAINT CRACKLES AT BASES. NO COUGH AT THIS TIME. COOP WITH ADMIT ASSESSMENTS AND QUESTIONAIRES. 102.4KG STANDING WEIGHT ON ADMIT. RECEIVED 2 DOSES OF LASIS 80MG IV AND 40 mEq K tabs. pt cooperative. has voided large amounts of yellow urine. Tele#[address], reading between SR and ST, pulse went up to 116 when up to BSC. Minimum of assist. Pt unsteady LE, no emesis. Med ed done w pt, cont to reinforce Denies CP, call light at hands reach. Instructed on fluid restriction 1600cc "I never watch my water intake at home stated" cont to reinorce compliance with fluids restriction.
--- NOTE | 2020-06-14 07:30 | NUR ---
REPORT RECEIVED FROM YANNICK CAT OPERATOR RN. PT RESTING IN BED THIS MORNING. STATES SHE DID NOT SLEEP WELL LAST NIGHT. NOTIFIED PT THAT AN DRAGLINE MECHANIC WOULD BE IN SHORTLY TO COMPLETE AN ECHOCARDIOGRAM THIS AM. PT REPOSITIONED TO LEFT SIDE. PT DENIES FURTHER NEEDS. CALL LIGHT IN REACH.
--- NOTE | 2020-06-14 08:15 | NUR ---
PT REQUESTING PAIN MEDICATION FOR CHRONIC HIP/BACK PAIN, RATING IT A 7/10. 10325 NORCO GIVEN. PT SITTING UP ON SIDE OF BED. ASSESSMENT COMPLETE. LUNG SOUNDS CLEAR THROUGHOUT, SATING 93% ON 4L NC (PT IS ON 4L O2 CHRONICALLY). PT REPORTS SOB W/ MINIMAL EXERTION. PREVIOUS ECHO SHOWED EF OF 15%, CURRENT ECHO RESULTS STILL PENDING. VSS. RECORDS PENDING FROM MOST RECENT [facility] VISIT. PT HAS HOME MEDS, GIVEN TO PHARMACY FOR VERIFICATION. EDEMA 1+ BLE. PT DENIES NAUSEA, STATES SHE DOES NOT HAVE APPETITE IN THE MORNINGS, THOUGH SHE WILL ATTEMPT TO EAT BREAKFAST. TELEMETRY SHOWS SINUS RHYTHYM, SINUS TACH UP TO 116 W/ ACTIVITY. PT IS INDEPENDENT TO BSC. VOIDING QUANTITY SUFFICIENT. RECEIVED 2 DOSES OF IV LASIX 80 MG OVERNIGHT AND WENT FROM 102 KG TO 99 KG. BREAKFAST TRAY HAS ARRIVED. PT REMAINS ON 1600 FLUID RESTRICTION. ALSO ON CYTOTOXIC PRECAUTIONS D/T BREAST CA TREATMENT. PT DENIES FURTHER NEEDS. CALL LIGHT IN REACH.
--- NOTE | 2020-06-14 08:30 | NUR ---
TELE LEADS NOT READING CORRECTLY, ELECTRODES REPLACED, STILL POOR READING. CCU NOTIFIED. EDINSON RAZO RN REPORTS DR FERRER GAVE VERBAL ORDER TO DC TELEMETRY. LEADS REMOVED.
--- NOTE | 2020-06-14 09:54 | NUR ---
PATIENT SITTING AT SIDE OF BED, VISITING WITH DAUGHTER. VITALS AND I&OS CHARTED. PATIENT HAS NOT VOIDED ON THIS SHIFT YET, GWEN TORRES NOTIFIED. GARBAGE EMPTIED, NO OTHER NEEDS AT THIS TIME.
[2020-06-14] MEDS ORDERED: HYDROCODON-ACE1 EAC8 PO (10:37)
[2020-06-14] MEDS ORDERED: POTASSIUM CHLO20 MEQ PO (11:04)
[2020-06-14] MEDS ORDERED: NEXIUM 24HR20 M2 PO (11:05)
[2020-06-14] MEDS ORDERED: AFRIN15 ML NAS (11:05)
[2020-06-14] MEDS ORDERED: NIGHT TIME COL355 ML PO (11:06)
[2020-06-14] MEDS ORDERED: ZYRTEC10 MG PO (11:06)
--- NOTE | 2020-06-14 11:07 | NUR ---
MED REC COMPLETE
--- NOTE | 2020-06-14 11:15 | NUR ---
HOME MEDS VERIFIED BY PHARMACY AND ADMINISTERED TO PT. VSS. PT REQUESTING TO REST IN BED D/T LACK OF SLEEP LAST NIGHT.
--- NOTE | 2020-06-14 12:20 | NUR ---
IV LASIX 80 MG ADMINISTERED ALONG W/ PO POTASSIUM BY EDINSON RAZO RN. DR FERRER IS BEEN IN TO ASSESS PT AND IS REQUESTING SHE AMBULATE AFTER LASIX.
--- NOTE | 2020-06-14 12:34 | NUR ---
THIS RN INTO ROOM TO CHECK ON PATIENT. PATIENT SITTING UP IN BED, EATING WITH [address]. PATIENT STATES SHE IS DOING WELL TODAY AND HOPING TO BE DISCHARGED THIS AFTERNOON PER HER CONVERSATION WITH DR. FERRER. DISCUSSED WITH PATIENT HER PLAN FOR DISCHARGE. PATIENT STATES SHE PLANS TO DISCHARGE HOME WHERE HER COUSIN AND FRIENDS ARE ABLE TO HELP HER WITH TAKS SUCH BRING IN THE GROCERIES AND LIFTING THE LAUNDRY. PATIENT STATES SHE ALSO STAYS WITH HER SON IN [place] AT TIMES TO ASSIST IN WATCHING HER GRAND CHILDREN. PATIENT STATES SHE FEEL SAFE WITH HER DISCHARGE PLAN AT THIS TIME. PATIENT ADVISED TO CONTACT CASE MANAGEMENT STAFF WITH ANY FURTHER QUESTIONS OR CONCERNS.
--- NOTE | 2020-06-14 14:36 | NUR ---
PATIENT FINISHED WITH BSC, BSC COMMODE DUMPED AND PATIENT BACK TO BED. VITALS AND I&OS CHARTED. RN AWARE OF BP. PATIENT UP TO AMBULATE MANCIA WITH RN.
--- NOTE | 2020-06-14 15:00 | NUR ---
AMBULATED W/ PT AROUND NURSES STATIONS. PT SBA AND ON 4 L NC. MOBILE PULSE OX SHOWED O2 NEVER LESS THAN 90%. PT DID HAVE TO STOP TO CATCH BREATH INTERMEDIATE THROUGH AMBULATION. STATES "IT'S A LITTLE FURTHER THAN I NORMALLY WALK AT HOME." ONCE BACK TO ROOM PT SETTLED INTO BED. O2 SATS 95% ON 4 L. VSS. CALL LIGHT IN REACH. PT CALLED 5 MIN LATER REPORTING 7/10 CHEST PAIN SLIGHTLY TO THE RIGHT AND SHARP ACHE. VSS. BP 123/97, HR 89, O2 SATS 93% ON 4 L NC. DENIES SOB. NOTIFIED AND HE IS IN TO ASSESS PT. NO NEW ORDERS. PRN NORCO GIVEN. PT STATES PAIN SLIGHTLY SUBSIDED TO 5/10 PRIOR TO NORCO ADMINISTRATION.
[2020-06-14] MEDS ORDERED: POTASSIUM CHLO20 ME1 PO (15:19)
[2020-06-14] MEDS ORDERED: TORSEMIDE20 MG PO (15:19)
--- NOTE | 2020-06-14 16:20 | NUR ---
ORDER FOR DISCHARGE AFTER ASSESSING PT. VSS. PT NOW DENIES ANY CHEST DISCOMFORT. RFA IV REMOVED. PT DRESSED AND PACKING BELONGINGS. DC INSTRUCTIONS THOROUGHLY REVIEWED. DISCUSSED W/ PT IMPORTANCE OF MONITORING FLUID INTAKE AND WEIGHT. PT VERBALIZED UNDERSTANDING. HOME MEDICATIONS RETURNED FROM [facility]. PT HAS HOME O2, SET UP ON 4 L NC. TAKEN TO FRONT ENTRANCE BY WHEELCHAIR AND SON PICKED UP.
== END 2020-06-14 16:20 | disposition home or self-care (01) ==
LOC: ED 13:57 → MS 13:58
PROVIDERS: ADMIT Internal Medicine; ATTEND Internal Medicine
DX: J96.21 Acute and chronic respiratory failure with hypoxia (principal); I11.0 Hypertensive heart disease with heart failure; I50.813 Acute on chronic right heart failure; I42.0 Dilated cardiomyopathy; E87.6 Hypokalemia; T50.2X5A Adverse effect of carbonic-anhydrase inhibitors, benzothiadiazides and other diuretics, initial encounter; I27.20 Pulmonary hypertension, unspecified; K21.9 Gastro-esophageal reflux disease without esophagitis; M54.5 Low back pain; G89.29 Other chronic pain; D68.0 Von Willebrand disease; Z99.81 Dependence on supplemental oxygen; Z20.822 Contact with and (suspected) exposure to COVID-19
CPT/HCPCS: 71045; 71260; 80053; 83735; 83880; 84484; 85025; 85379; 93005; 93010; 93306; 94640; 99285-25; J1940; Q9967; U0003